=== PATIENT | female | born 1955 | race Caucasian/White ===

== ENCOUNTER 2022-02-09 11:26 | Outpatient (CLI) | payer MEDICARE, SELFPAY ==
--- OUTSIDE RECORDS SUMMARY | 2022-02-09 08:04 | XMS_ITS | Encounter Summary ---
:1955 Author Organization [facility] Address [address] [place] [address] Care Team Providers Name Role Phone Unavailable Primary Care Provider Unavailable Encounter Details Date Type Department Care Team Description 08/18/2021 Hospital Encounter Department of Jean Claude, Carcinom a Renal Cell Right (HCC); Laboratory Medicine Karan Crowe Chronic Kidney Disease (CKD), Stage 3a G lomerular Filtration Rate (GFR) 45 To 59 (HCC); and Pathology, [address] [place] [address] Hyperlipidemia [facility], in [facility] [address] [place] [phone] [place] [address] (Work) [place], [place] [phone] (Fax) [phone] Social History Tobacco Use Types Packs/Day Years Used Date Smoking Tobacco: Never Smokeless Tobacco: Never Comments: passive smoke as a child, teen Alcohol Use Standard Drinks/Week Comments Not Currently 0 (1 standard drink = 0.6 oz pure alcoho l) not since 06/2017 Alcohol Habits Answer Date Recorded How often do you have a drink containing alcohol? Never 08/15/2021 How many drinks containing alcohol do you have on a 1 or 2 03/19/2019 typical day when you are drinking? How often do you have six or more drinks on one Never 03/19/2019 occasion? Comment: not since 06/201702/24/2021 Social Isolation Answer Date Recorded In a typical week, how many times do you More than three satya es a week 08/15/2021 talk on the phone with family, friends, or neighbors? How often do you get together with friends Once a week 08/15/2021 or relatives? How often do you attend buddhist or More than 4 times per year 08/15/2021 zoroastrianism services? Do you belong to any clubs or Yes 08/15/2021 organizations such as buddhist groups, unions, fraternal or athletic groups, or school groups? How often do you attend meetings of the More than 4 times pe r year 08/15/2021 clubs or organizations you belong to? Are you now , , , 08/15/2021 , never or living with a partner? Physical Activity Answer Date Recorded On average, how many days per week do you engage in moderate to 6 days 08/15/2021 strenuous exercise (like walking fast, running, jogging, dancing, swimming, biking, or other activities that cause a light or heavy sweat)? On average, how many minutes do you engage in exercise at th is 60 min 08/15/2021 level? Stress Answer Date Recorded Do you feel stress - tense, restless, nervous, or Only a lit tle 08/15/2021 anxious, or unable to sleep at night because your mind is troubled all the time - these days? Financial Resource Strain Answer Date Recorded How hard is it for you to pay for the very basics like Not h praful at all 08/15/2021 food, housing, medical care, and heating? Intimate Partner Violence Answer Date Recorded Within the last year, have you been afraid of your partner o r No 08/15/2021 ex-partner? Within the last year, have you been humiliated or emotionall y No 08/15/2021 abused in other ways by your partner or ex-partner? Within the last year, have you been kicked, hit, slapped, or No 08/15/2021 otherwise physically hurt by your partner or ex-partner? Within the last year, have you been raped or forced to have any No 08/15/2021 kind of sexual activity by your partner or ex-partner? Food Insecurity Answer Date Recorded Within the past 12 months, you worried that your food would Never true 08/15/2021 run out before you got money to buy more. Within the past 12 months, the food you bought just didn't N ever true 08/15/2021 last and you didn't have money to get more. Transportation Needs Answer Date Recorded In the past 12 months, has lack of transportation kept you f rom No 08/15/2021 medical appointments or from getting medications? In the past 12 months, has lack of transportation kept you f rom No 08/15/2021 meetings, work, or getting things needed for daily living? Housing Stability Answer Date Recorded In the last 12 months, was there a time when you were not ab le No 08/15/2021 to pay the mortgage or rent on time? In the last 12 months, how many places have you lived? 1 08/15/2021 In the last 12 months, was there a time when you did not hav e a No 08/15/[address] sleep or slept in a intermediate (including now)? Education Answer Date Recorded What is the highest level of school Bachelor's degree (e.g., BA, AB, 03/18/2019 you have completed or the highest BS) degree you have received? Sex Assigned at Date Recorded Female 05/10/2018 8:56 AM [employer] documented as of this encounter Medications at Time of Discharge Medication Sig Dispensed Refills Start Date End Date lisinopriL Take 2.5 mg by mouth 0 (PRINIVIL,ZESTRIL) 2.5 mg daily. tablet MULTIVITAMIN ORAL Take by mouth. 2 0 gummies daily plant stanol toi Take 2 capsules by 0 (Cholest Off Plus) 450 mg mouth 2 (two) times a capsule day. psyllium husk, with sugar, Take 3 g by mouth 0 (Metamucil Free) 3 gram/7 daily. gram powder oral powder documented as of this encounter Plan of Treatment Not on filedocumented as of this encounter Procedures Procedure Name Priority Date/Time Associated Diagnosis Comme nts LIPID PANEL, S Routine 08/18/2021 8:01 AM Hyperlipidemia Mixed Results for this CDT procedure are i n the results section. 25-HYDROXYVITAMIN Routine 08/18/2021 8:01 AM Chronic Kidney Di sease Results for this D2 AND D3, S CDT (CKD), Stage 3a procedure ar e in Glomerular Filtration the re sults Rate (GFR) 45 To 59 section. (HCC) CBC WITHOUT Routine 08/18/2021 8:01 AM Carcinoma Renal Cell R esults for this DIFFERENTIAL, B CDT Right (HCC) procedure ar e in the results section. BASIC METABOLIC Routine 08/18/2021 8:01 AM Carcinoma Renal Giulia l Results for this PANEL, S/P CDT Right (HCC) procedure are i n the results section. documented in this encounter Results (ABNORMAL) Lipid Panel (08/18/2021 8:01 AM CDT) athologist Signature Cholesterol, 182 mg/dL 08/18/2021 DTL Total 9:02 AM CDT Comment: ----REFERENCE VALUE---- Desirable: < 200 Borderline high: 200 - 239 High: > or = 240 Triglycerides 146 mg/dL 08/18/2021 9:02 AM CDT DTL Comment: ----REFERENCE VALUE---- Normal: <150 Borderline high: 150-199 High: 200-499 Very high: > or =500 Cholesterol, HDL, S 45 (L) >=50 mg/dL 08/18/2021 9:02 AM CDT DTL Calculated LDL 108 mg/dL 08/18/2021 9:02 AM CDT DT L Comment: ----REFERENCE VALUE---- Desirable: <100 mg/dL Above Desirable: 100-129 mg/dL Borderline High: 130-159 mg/dL High: 160-189 mg/dL Very High: >=190 mg/dL Cholesterol, Non-HDL, Calculated 137 mg/dL 022 9:02 AM CDT DTL Comment: ----REFERENCE VALUE---- Desirable: <130 Above Desirable: 130-159 Borderline high: 160-189 High: 190-219 Very high: > or =220 Specimen Anatomical Collection Method Collection Time Receive d Time (Source) Location / / Volume Laterality Blood (Blood, 08/18/2021 8:01 AM 08/19/19 22 8:43 Venous) CDT AM CDT Kristine Pedraza M.D. LAB BLOOD ADD-ON Performing Organization Address City/State/ZIP Code Phon e Number [facility] - [address] [place], [place] [address] [facility] [place] [address] Laboratories-[facility] [address] 25-Hydroxyvitamin D2 and D3 (08/18/2021 8:01 AM CDT) athologist Signature 25-Hydroxy D2 <4.0 ng/mL 08/19/2021 SDSC 3:46 PM CDT 25-Hydroxy D3 37 ng/mL 08/19/2021 SDSC 3:46 PM CDT 25-Hydroxy D 37 ng/mL 08/19/2021 SDSC Total 3:46 PM CDT Comment: ----REFERENCE VALUE---- 25-HYDROXY D TOTAL (D2+D3) Optimum level s in the healthy population are 20-50, patients with bone disease may benefit from higher levels within this r za. ----ADDITIONAL INFORMATION---- This test was developed and its performa nce characteristics determined by [facility] in a manner consistent with CLIA requirements. This test has not been cleared or approved by the [place] d and Drug Administration. Specimen Anatomical Collection Method Collection Time Receive d Time (Source) Location / / Volume Laterality Blood (Blood, 08/18/2021 8:01 AM 08/19/19 22 Venous) CDT 12:46 PM CDT Selvin Monreal M.D. LAB BLOOD ADD-ON Performing Organization Address City/State/ZIP Code Phon e Number [facility] [address] [place], [place] [address] [place] [address] Laboratory Medicine and Pathology [address] [place] (ABNORMAL) Basic Metabolic Panel (08/18/2021 8:01 AM CDT) Analysis Performed At Patho logist Time Signature Potassium, S 3.8 3.6 - 5.2 08/18/2021 DTL mmol/L 9:02 AM CDT Sodium, S 143 135 - 145 08/18/2021 DTL mmol/L 9:02 AM CDT Chloride, S 104 98 - 107 08/18/2021 DTL mmol/L 9:02 AM CDT Bicarbonate, S 28 22 - 29 08/18/2021 DTL mmol/L 9:02 AM CDT Anion Gap 11 7 - 15 08/18/2021 DTL 9:02 AM CDT BUN (Blood Urea 12 6 - 21 08/18/2021 DTL Nitrogen), S mg/dL 9:02 AM CDT Creatinine 1.13 (H) 0.59 - 08/18/2021 DTL 1.04 mg/dL 9:02 AM CDT eGFR-Non 50 (L) >=60 08/18/2021 DTL Black/ mL/min/BSA 9:02 AM CDT [place] Comment: ----ADDITIONAL INFORMATION---- Estimated GFR calculated using the 2009 CKD_EPI creatinine equation. eGFR-Black/ 58 (L) >=60 mL/min/BSA 2021 9:02 AM CDT DTL Comment: ----ADDITIONAL INFORMATION---- Estimated GFR calculated using the 2009 CKD_EPI creatinine equation. Calcium, Total, S 9.5 8.8 - 10.2 mg/dL 08/18/2021 9:02 AM CDT DTL Glucose, S 69 (L) 70 - 140 mg/dL 08/18/2021 9:02 AM CDT D TL Specimen Anatomical Collection Method Collection Time Receive d Time (Source) Location / / Volume Laterality Blood (Blood, 08/18/2021 8:01 AM 08/19/19 8:43 Venous) CDT AM CDT Edy Silverio M.D. LAB BLOOD ADD-ON Performing Organization Address City/State/ZIP Code Phon e Number [facility] - [address] [place], [place] [address] [facility] [place] [address] [facility] CBC without Differential (08/18/2021 8:01 AM CDT) P athologist Signature Hemoglobin 13.4 11.6 - 08/18/2021 DTL 15.0 g/dL 8:32 AM CDT Hematocrit 41.4 35.5 - 08/18/2021 DTL 44.9 % 8:32 AM CDT Erythrocytes 4.58 3.92 - 08/18/2021 DTL 5.13 8:32 AM CDT x10(12)/L MCV 90.4 78.2 - 08/18/2021 DTL 97.9 fL 8:32 AM CDT RBC Distrib Width 12.7 12.2 - 08/18/2021 DTL 16.1 % 8:32 AM CDT Platelet Count 221 157 - 371 08/18/2021 DTL x10(9)/L 8:32 AM CDT Leukocytes 4.9 3.4 - 9.6 08/18/2021 DTL x10(9)/L 8:32 AM CDT Specimen Anatomical Collection Method Collection Time Receive d Time (Source) Location / / Volume Laterality Blood (Blood, 08/18/2021 8:01 AM 08/19/19 8:25 Venous) CDT AM CDT Edy Silverio M.D. LAB BLOOD ADD-ON Performing Organization Address City/State/ZIP Code Phon e Number [facility] - [address] [place], [place] [address] [facility] [place] [address] [facility] [address] documented in this encounter Visit Diagnoses Diagnosis Carcinoma Renal Cell Right (HCC) Chronic Kidney Disease (CKD), Stage 3a G lomerular Filtration Rate (GFR) 45 To 59 (HCC) Hyperlipidemia Mixed documented in this encounter
--- OUTSIDE RECORDS SUMMARY | 2022-02-09 08:04 | XMS_ITS | Encounter Summary ---
:1955 Author Organization [facility] Address [address] [place] [address] Care Team Providers Name Role Phone Unavailable Primary Care Provider Unavailable Reason for Visit Reason Comments Breast Cancer Screening Encounter Details Date Type Department Care Team Description 09/08/2021 Clinical Section of Preventive, uJany Chandra Cancer Communication Transportation and K, Mukul [facility] in [place], [place] [address] [place] [address] Social History Tobacco Use Types Packs/Day Years [...] or relatives? How often do you attend jainism or More than 4 times per year 08/15/2021 jain services? Do you belong to any clubs or Yes 08/15/2021 organizations such as jainism groups, unions, fraternal or athletic groups, or [...] minutes do you engage in exercise at is 60 min 08/15/2021 level? Stress Answer [...] place to sleep or slept in a retirement (including now)? Education Answer Date Recorded What is the highest level of school Bachelor's degree (e.g., BA, AB, 03/18/2019 you have completed or the highest BS) degree you have received? Sex Assigned at Date Recorded Female 05/10/2018 8:56 AM [employer] documented as of this encounter Plan of Treatment Not on filedocumented as of this encounter Visit Diagnoses Diagnosis Screening Mammogram Breast Cancer - Prim adore documented in this encounter
--- OUTSIDE RECORDS SUMMARY | 2022-02-09 08:04 | XMS_ITS | Encounter Summary ---
:1955 Author Organization [facility] Address [address] [place] [address] Care Team Providers Name Role Phone Unavailable Primary Care Provider Unavailable Reason for Referral Outpatient (Routine) - Closed Specialty Diagnoses / Procedures Referred By Contact Refer red To Contact Diagnoses Lump In The Left Breast Unspecified Quadrant Mali Gonzalez M.D., [facility] Procedures BI Ultrasound Breast Focused Left Ph.D. [address] [place] [address] [phone] Referral ID Status Reason Start Date Expiration Date Visits Requ ested Visits Authorized [id number] Closed 11/03/2021 11/03/2022 1 1 Outpatient (Routine) - Closed Specialty Diagnoses / Procedures Referred By Contact Refer red To Contact Diagnoses Lump In The Left Breast Unspecified Quadrant Mali Gonzalez M.D., [facility] Procedures BI Breast Diagnostic Bilateral with Tomosynthesis Ph.D. [address] [place] [address] [phone] Referral ID Status Reason Start Date Expiration Date Visits Requ ested Visits Authorized [id number] Closed 11/03/2021 11/03/2022 1 1 Reason for Visit Reason Comments Annual Exam Appointment Request (Routine) - Closed Specialty Diagnoses / Procedures Referred By Contact Refer red To Contact Breast Clinic Referral ID Status Reason Start Date Expiration Date Visits Requ ested Visits Authorized [id number] Closed 09/14/2021 09/14/2022 1 Encounter Details Date Type Department Care Team Description 11/03/2021 Comprehensive Visit Breast Diagnostic Mali Gonzalez ump In The Left Breast Unspecified Quadrant (Primary Dx); Clinic in [place], Ph.D. Follow Up Exam; [address] General Medical Examination Adult; [place], [place] Cancer Renal Cell Carcinoma Personal History; [address] [place] [phone] Chronic Kidney Disease (CKD), Stage 3a G lomerular Filtration Rate (GFR) 45 To 59 (HCC) [place], [place] [phone] (Work) [phone] Social History Tobacco Use Types Packs/Day Years [...] or relatives? How often do you attend yarsani or More than 4 times per year 08/15/2021 evangelical services? Do you belong to any clubs or Yes 08/15/2021 organizations such as yarsani groups, unions, fraternal or athletic groups, or [...] place to sleep or slept in a fdc (including now)? Education Answer Date Recorded What is the highest level of school Bachelor's degree (e.g., BA, AB, 03/18/2019 you have completed or the highest BS) degree you have received? 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 - 11/03/2021 8:00 AM CDT REASON FOR CONSULT Medical evaluation HISTORY OF PRESENT ILLNESS Ms. Willis is a very pleasant 66-year-old woman known to me from her evaluation in March of 2019.She is here for annual evaluation and to follow-up on some health related issues. Ms. Willis has a personal history of renal cell carcinoma status post partial nephrectomy in June 2018, melanoma insight 2, indeterminate pulmonary nodules, history of likely multifactorial anemia,and hypertension reasonably well controlled on medication. At the time she presented in late 2018 she was also having some bilateral right greater than left leg swelling and diagnostic evaluation did not identify any acute or subacute issues. The swelling was felt to be chronic and there were no findings suggestive of thromboembolism or liver or thyroid dysfunction. Was thought to be a combination ofvenous insufficiency and lymphedema and after evaluation by my colleague in PM&R she elected cont inued use of thigh-high compression stockings with further efforts towards weight loss and increasedphysical activity. She did not have an interest in seeing the lymphedema therapist at that time. Follow-up after treatment for renal cell carcinoma did not identify any evidence of recurrent or metastatic disease and six-month follow-up with CT of the chest, abdomen, pelvis, urology evaluation, and labs were recommended. At her December 2019 follow-up there were no findings of recurrence and noted pulmonary nodules appeared stable. The plan at that time was nephrology consultation for chronic kidney disease and renal cell carcinoma follow-up in 6 months including imaging and labs. She was seen by maria victoria in Nephrology in February of 2020 and was noted that she had had some loss of kidney function after her right partial nephrectomy. Her slight worsening in December of 2018 was thought likely angel due to hemodynamic affects. They looked into whether her biopsy showed any evidence of renal vascular disease and explained to her that lisinopril would accentuate her creatinine change but she was reassured that if there was any evidence of renal vascular disease that THOMAS inhibitors with the best antihypertensive for her. Judicious use of IV contrast was recommended with IV hydration prior as prophylaxis. She was seen by Genetics in March of 2020 as she had concerns about a potential genetic syndrome. Genetic testing was undertaken and there were no pathogenic variance identified; a single variant of uncertain significance was identified in MSH3 and she was advised that this was not clinically actionable as we do not have sufficient evidence to allow us to understand this variant. She was seen by Endocrinology in February of 2021 in the setting of her hyperlipidemia and abnormal bone density. Her most recent follow-up in Urology was in July of this year and at that time there was no evidence of anything of concern and follow-up in 1 year was recommended. It is noted that she is on a plant based diet and is doing very well. Since I saw her in late 2018, Ms. Willis reports that she was hospitalized for food poisoning earlierthis month. She recovered well but it was noted that her CBC was a bit abnormal and wanted to make sure that this has normalized. She reports that she is overall feeling well and has no specific symptoms or changes of concern. REVIEW OF SYSTEMS A ten point review of systems was performed and negative except as mentioned in the HPI. VITAL SIGNS PHYSICAL EXAM General: Well-nourished, healthy-appearing woman in no apparent distress. HEENT: No scleral icterus or conjunctival injection. Pupillary reflexes are normal and symmetric. Oropharynx is clear without lesions or exudates. Thyroid: No palpable nodules. Nontender. Elevates midline. Peripheral vessels: Normal and symmetric pulses throughout. No bruits. Lymph nodes: No palpable adenopathy throughout. Heart: Regular rate and rhythm. Normal S1 and S2. No murmurs, rubs, or gallops. Lungs: Clear to auscultation bilaterally. Abdomen: She has a vertical keloid scar from her anterior approach nephrectomy. No abdominal bruits.Soft, nontender, nondistended. No organomegaly discrete masses. Extremities: No cyanosis or clubbing. Mild asymmetry between the right and left thigh. She just tookoff her thigh-high compression stockings. Distal extremities are warm and well perfused. Psych: Mood appears congruent with linear thought processes. She was somewhat tearful when talking about her history and her renal cell carcinoma and melanoma in situ. Gait: Normal. Neuro: Cranial nerves 2-12 are grossly intact. Muscle tone and bulk is symmetric and normal. DTRs normal and symmetric throughout. Skin: She has a scar on her left draw from melanoma in situ resection and a pressure bandage in the mid upper back from removal of a skin lesion. Breasts: Moderate and overall symmetric. both nipples remain everted and without discharge or lesions. Skin is unremarkable. Palpation of the right breast reveals no dominant nodules, discrete masses, thickenings, densities, or asymmetries. Palpation of the left breast demonstrated an area of slightly increased asymmetric density or thickening at about 3-330 about 5 cm from the nipple. This area is smooth and approximately 3 cm in overall extent. This was marked for diagnostic imaging purposes. Spine: Nontender to percussion and palpation throughout. Scoliosis noted. ASSESSMENT/PLAN: #1 Palpable asymmetric density, left lateral breast, pending diagnostic imaging evaluation Reviewed this with her. It was not present on my last clinical exam. I have recommended a diagnosticmammogram and targeted diagnostic ultrasound. Will follow-up when results become available to provide further recommendations as appropriate. If the imaging is entirely unremarkable I would recommend 3month follow-up clinical exam, sooner if she notices any changes. #2 Personal history of renal cell carcinoma status post partial nephrectomy cup no evidence of recurrence #3 CKD stage 3A #4 Hyperlipidemia---ASCVD risk was identified as being 12.7%, intermediate risk. Patient chose lifestyle management of hyperlipidemia with a whole food plant based diet and exerciseand feels that she is doing well in this regard. She notes that she feels better on her whole food plant based diet. She reports that she added the medications recommended by my colleague in endocrinology and between those and the plant based diet she has had an improvement in her lipid profile. She is followed by Urology and Nephrology and at her July urology follow-up was found not to have any evidence of recurrence. She is scheduled for nephrology follow-up in January. #5 Declining bone density not yet meeting criteria for osteopenia Reviewed bone health preservation including regular walking for weight-bearing exercise as well as vitamin-D and calcium supplementation if inadequate amounts through dietary sources. #6 CBC abnormality during food borne illness episode I reviewed the labs that she brought with her. Discussed with her that her labs from November 03 demonstrated completely normal CBC with differential and no evidence of abnormal neutrophil, lymphocyte, or monocyte levels. No follow-up is needed at this time. #7 Health maintenance Colonoscopy for colon cancer screening is recommended every 10 years. She is currently up-to-date. Annual influenza vaccine is recommended. Once we have guidelines with regards to COVID vaccine boosters, I would recommend this based upon CDC guidelines. Bone density was measured locally in July of 2020 and I recommend follow-up as per my colleagues in [facility] as well as their recommendations with regards to calcium and vitamin-D supplementation. Recommended a minimum of 150 minutes of exercise weekly such as 30 minutes of walking at least 5 days per week for bone density preservation and cardiovascular health. All of her questions were addressed and she was extremely appreciative. PATIENT EDUCATION: Ready to learn, no apparent learning barriers were identified; learning preferences include listening. Explained diagnosis and treatment plan; patient expressed understanding of the content. Over half of a total 60 minutes was spent in counseling and discussion with the patient and coordination of care as described above. documented in this encounter Plan of Treatment Not on filedocumented as of this encounter Results BI Ultrasound Breast Focused Left (11/04/2021 10:06 AM CDT) Anatomical Region Laterality Modality Breast, Breast Imaging RST LOS, Breast Imaging ARZ LOS, [place] [address] Left Ultrasound Imaging FLA LOS Specimen (Source) Anatomical Collection Method Collection Time Re ceived Time Location / / Volume Laterality 11/04/2021 10:12 AM CDT Impressions 11/04/2021 10:16 AM CDT No mammographic or sonographic findings of malignancy. Underlying left anterior rib accounts for the palpable finding in the left breast 3:00 - 3:30 position 5 cm from the nipple. RECOMMENDATION: ??Annual Screening Mammo gram Findings and results discussed with the patient at the time of imaging. She was encouraged to return to radiology should she notice a clinica l change. All questions answered. ASSESSMENT: ??BI-RADS: 1: Negative. Narrative 11/04/2021 10:16 AM CDT EXAM: ??BI ULTRASOUND BREAST FOCUSED LEFT, BI BREAST DIAGNOSTIC BILATERAL WITH TOMOSYNTHESIS INDICATION: ??Palpable lump. 66-year-old female with recent history of greater than 50 pound weight loss over a two-year period, now with pa lpable lump in the left breast. COMPARISON: ??Prior exam(s) were availab le and reviewed for comparison. DENSITY: ??c. The breast(s) are heteroge neously dense, which may obscure small masses. FINDINGS: ?? Right: Right diagnostic mammogram includ ing full field CC and MLO views with 3-D imaging performed. No mammographic findings of malignancy. Benign secretory calcifications within the right breast. Left: Left diagnostic mammogram includin g full field CC and MLO views with 3-D imaging performed. No mammographic findings of malignancy. No significant interval change from prior study. Targeted left breast ultrasound at the s ite of palpable finding is performed at the 3:00 - 3:30 position 5 cm from the nipple. The under lying left anterior rib accounts for the palpable finding. No suspicious sonographic findings. Both the payroll and benefits assistant and I scanned. Procedure Note Patrick Pandya M.D. - 11/04/2021Formatti ng of this note might be different from the original. EXAM: BI ULTRASOUND BREAST FOCUSED LEFT, BI BREAST DIAGNOSTIC BILATERAL WITH TOMOSYNTHESIS INDICATION: Palpable lump. 66-year-old f emale with recent history of greater than 50 pound weight loss over a two-year period, now with pa lpable lump in the left breast. COMPARISON: Prior exam(s) were available and reviewed for comparison. DENSITY: c. The breast(s) are heterogene ously dense, which may obscure small masses. FINDINGS: Right: Right diagnostic mammogram includ ing full field CC and MLO views with 3-D imaging performed. No mammographic findings of malignancy. Benign secretory calcifications within the right breast. Left: Left diagnostic mammogram includin g full field CC and MLO views with 3-D imaging performed. No mammographic findings of malignancy. No significant interval change from prior study. Targeted left breast ultrasound at the s ite of palpable finding is performed at the 3:00 - 3:30 position 5 cm from the nipple. The under lying left anterior rib accounts for the palpable finding. No suspicious sonographic findings. Both the payroll and benefits assistant and I scanned. IMPRESSION: No mammographic or sonographic findings of malignancy. Underlying left anterior rib accounts for the palpable finding in the left breast 3:00 - 3:30 position 5 cm from the nipple. RECOMMENDATION: Annual Screening Mammogr am Findings and results discussed with the patient at the time of imaging. She was encouraged to return to radiology should she notice a clinica l change. All questions answered. ASSESSMENT: BI-RADS: 1: Negative. Mali Gonzalez M.D., Ph.D. IMG BI PROCEDURES BI Breast Diagnostic Bilateral with Tomosynthesis (11/04/2021 9:32 AM CDT) Anatomical Region Laterality Modality Breast, Breast Imaging RST LOS, Breast Imaging ARZ LOS, [place] [address] Bilateral Mammography Imaging FLA [facility] Specimen (Source) Anatomical Collection Method Collection Time Re ceived Time Location / / Volume Laterality 11/04/2021 10:12 AM CDT Impressions 11/04/2021 10:16 AM CDT No mammographic or sonographic findings of malignancy. Underlying left anterior rib accounts for the palpable finding in the left breast 3:00 - 3:30 position 5 cm from the nipple. RECOMMENDATION: ??Annual Screening Mammo gram Findings and results discussed with the patient at the time of imaging. She was encouraged to return to radiology should she notice a clinica l change. All questions answered. ASSESSMENT: ??BI-RADS: 1: Negative. Narrative 11/04/2021 10:16 AM CDT EXAM: ??BI ULTRASOUND BREAST FOCUSED LEFT, BI BREAST DIAGNOSTIC BILATERAL WITH TOMOSYNTHESIS INDICATION: ??Palpable lump. 66-year-old female with recent history of greater than 50 pound weight loss over a two-year period, now with pa lpable lump in the left breast. COMPARISON: ??Prior exam(s) were availab le and reviewed for comparison. DENSITY: ??c. The breast(s) are heteroge neously dense, which may obscure small masses. FINDINGS: ?? Right: Right diagnostic mammogram includ ing full field CC and MLO views with 3-D imaging performed. No mammographic findings of malignancy. Benign secretory calcifications within the right breast. Left: Left diagnostic mammogram includin g full field CC and MLO views with 3-D imaging performed. No mammographic findings of malignancy. No significant interval change from prior study. Targeted left breast ultrasound at the s ite of palpable finding is performed at the 3:00 - 3:30 position 5 cm from the nipple. The under lying left anterior rib accounts for the palpable finding. No suspicious sonographic findings. Both the payroll and benefits assistant and I scanned. Procedure Note Patrick Pandya M.D. - 11/04/2021Formatti ng of this note might be different from the original. EXAM: BI ULTRASOUND BREAST FOCUSED LEFT, BI BREAST DIAGNOSTIC BILATERAL WITH TOMOSYNTHESIS INDICATION: Palpable lump. 66-year-old f emale with recent history of greater than 50 pound weight loss over a two-year period, now with pa lpable lump in the left breast. COMPARISON: Prior exam(s) were available and reviewed for comparison. DENSITY: c. The breast(s) are heterogene ously dense, which may obscure small masses. FINDINGS: Right: Right diagnostic mammogram includ ing full field CC and MLO views with 3-D imaging performed. No mammographic findings of malignancy. Benign secretory calcifications within the right breast. Left: Left diagnostic mammogram includin g full field CC and MLO views with 3-D imaging performed. No mammographic findings of malignancy. No significant interval change from prior study. Targeted left breast ultrasound at the s ite of palpable finding is performed at the 3:00 - 3:30 position 5 cm from the nipple. The under lying left anterior rib accounts for the palpable finding. No suspicious sonographic findings. Both the payroll and benefits assistant and I scanned. IMPRESSION: No mammographic or sonographic findings of malignancy. Underlying left anterior rib accounts for the palpable finding in the left breast 3:00 - 3:30 position 5 cm from the nipple. RECOMMENDATION: Annual Screening Mammogr am Findings and results discussed with the patient at the time of imaging. She was encouraged to return to radiology should she notice a clinica l change. All questions answered. ASSESSMENT: BI-RADS: 1: Negative. Mali Gonzalez M.D., Ph.D. IMG BI PROCEDURES documented in this encounter Visit Diagnoses Diagnosis Lump In The Left Breast Unspecified Quad rant - Primary Follow Up Exam General Medical Examination Adult Cancer Renal Cell Carcinoma Personal His tory Chronic Kidney Disease (CKD), Stage 3a G lomerular Filtration Rate (GFR) 45 To 59 (HCC) Lump In The Left Breast Unspecified Quad rant Lump In The Left Breast Unspecified Quad rant documented in this encounter
--- OUTSIDE RECORDS SUMMARY | 2022-02-09 08:04 | XMS_ITS | Encounter Summary ---
:1955 Author Organization [facility] Address [address] [place] [address] Care Team Providers Name Role Phone Unavailable Primary Care Provider Unavailable Encounter Details Date Type Department Care Team Description 11/07/2021 Documentation Breast Diagnostic Clinic Mali Gonzalez, in [facility] [place] sarah Kc, Ph.D. [address] [facility] [address] [place] [address] [place], [place] [phone] (Wo rk) Social History Tobacco Use Types Packs/Day Years [...] or relatives? How often do you attend jew or More than 4 times per year 08/15/2021 latter-day services? Do you belong to any clubs or Yes 08/15/2021 organizations such as jew groups, unions, fraternal or athletic groups, or [...] place to sleep or slept in a half-way (including now)? Education Answer Date Recorded What is the highest level of school Bachelor's degree (e.g., BA, AB, 03/18/2019 you have completed or the highest BS) degree you have received? 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 - 11/07/2021 2:37 PM CDT #1 Palpable asymmetric density, left lateral breast, pending diagnostic imaging evaluation Studies: Diagnostic mammogram and ultrasound Findings recommendations: It was noted that she has had a significant weight loss over the last 2 years which has been intended. This certainly can contribute to changes in architecture of the breast tissue. She has dense breast tissue. The right breast was mammographically unremarkable. In the left breast there were no significant findings of concern. Ultrasound evaluation in the area in question demonstrates an underlying left anterior rib with overlying normal appearing breast tissue accounting for the palpable finding. This is concordant with my exam and no further evaluation is needed. Recommend annual clinical breast exam and annual screening mammogram with 3D views, next due October 2022. ?? #2 Personal history of renal cell carcinoma status post partial nephrectomy with no evidence of recurrence #3 CKD stage 3A #4 Hyperlipidemia Recommendations: Continued follow-up with Urology and Nephrology, nephrology follow-up currently scheduled for January. Avoid NSAIDs such as ibuprofen. Continue with whole food plant based diet and regular physical activity and other recommendations from my colleagues. ?? #5 Declining bone density not yet meeting criteria for osteopenia Recommendations: Calcium and vitamin-D supplementation as recommended by [facility] and regular physical activity including weight-bearing exercises for bone density preservation. Reviewed bone health preservation including regular walking for weight-bearing exercise as well as vitamin-D supplementation with 1000 [address] daily and calcium intake of 800-1000 mg daily in divided doses, consider calcium citrate supplementation if necessary. Follow-up bone density 2 years from most recent at the facility where was done previously for better comparison purposes is recommended. #6 Health maintenance Recommendations: Colonoscopy for colon cancer screening is recommended every 10 years. She is currently up-to-date. Annual screening mammogram, next due October 2022. Annual influenza vaccine is recommended. Once we have guidelines with regards to COVID vaccine boosters, I would recommend [facility]. Follow-up bone density 2 years from most recent at the facility where it was performed. Calcium and vitamin-D intake as noted above. Recommended a minimum of 150 minutes of exercise weekly such as 30 minutes of walking at least 5 days per week for bone density preservation and cardiovascular health. documented in this encounter Plan of Treatment Not on filedocumented as of this encounter Visit Diagnoses Not on filedocumented in this encounter
--- OUTSIDE RECORDS SUMMARY | 2022-02-09 08:04 | XMS_ITS | Encounter Summary ---
:1955 Author Organization [facility] Address [address] [place] [address] Care Team Providers Name Role Phone Unavailable Primary Care Provider Unavailable Encounter Details Date Type Department Care Team Description 01/17/2022 Hospital Encounter Department of Tramaine Hope Chroni c Kidney Laboratory Medicine MJenniferDJennifer Disease (CKD), Stage and Pathology, [address] [place] [address] 3a [facility], in [place], [place] Filtrat ion Rate (GFR) [place], [place] [phone] 45 To 59 (HCC) [address] [place] [address] [place], [place] (Work) [phone] Social History Tobacco Use Types Packs/Day Years [...] or relatives? How often do you attend druze or More than 4 times per year 08/15/2021 gnosticism services? Do you belong to any clubs or Yes 08/15/2021 organizations such as druze groups, unions, fraternal or athletic groups, or school groups? How often do you attend meetings of the More than 4 times r year 08/15/2021 clubs or organizations you [...] place to sleep or slept in a correction (including now)? Education Answer Date Recorded What is the highest level of school Bachelor's degree (e.g., BA, AB, 03/18/2019 you have completed or the highest BS) degree you have received? 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 MICROSCOPIC AUTOMATED Routine 01/17/2022 10:44 Re sults for this AM CDT procedure are i n the results section. PH, U Routine 01/17/2022 10:44 Results for this AM CDT procedure are i n the results section. OSMOLALITY, U Routine 01/17/2022 10:44 Results fo r this AM CDT procedure are i n the results section. URINALYSIS WITH Routine 01/17/2022 10:44 Chronic Kidney Result s for this MICROSCOPIC AM CDT Disease (CKD), procedure are in Stage 3a Glomerular the resu lts Filtration Rate section. (GFR) 45 To 59 (HCC) documented in this encounter Results Dipstick, Urine (01/17/2022 10:44 AM CDT) [facility] gist Method Time Signature Hemoglobin, Negative Negative 01/17/2022 DTL QL, U 12:11 PM CDT Leukocyte Negative Negative 01/17/2022 DTL Esterase, U 12:11 PM CDT Nitrite, U Negative Negative 01/17/2022 DTL 12:11 PM CDT Ketone, U Negative Negative 01/17/2022 DTL mg/dL 12:11 PM CDT Glucose, U Negative Negative 01/17/2022 DTL mg/dL 12:11 PM CDT Specimen Anatomical Collection Method Collection Time Receive d Time (Source) Location / / Volume Laterality Urine 01/17/2022 10:44 01/17/2022 AM CDT 11:32 AM CDT Tramaine Hope M.D. LAB URINE ORDERABLES Performing Organization Address City/[facility]/[place]IP [facility] [place] [facility] - [address] [place] [address] First [facility] Osmolality, Urine (01/17/2022 10:44 AM CDT) athologist Signature Osmolality, U 322 150 - 1150 01/17/2022 DTL mOsm/kg 12:36 PM CDT Specimen Anatomical Collection Method Collection Time Receive d Time (Source) Location / / Volume Laterality Urine 01/17/2022 10:44 01/17/2022 AM CDT 11:32 AM CDT Tramaine Hope M.D. LAB URINE ORDERABLES Performing Organization Address City/State/ZIP [facility] [place] Number [facility] - [address] pH, Urine (01/17/2022 10:44 AM CDT) P athologist Signature pH, U 7.7 4.5 - 8.0 01/17/2022 12:36 DTL PM CDT Specimen Anatomical Collection Method Collection Time Receive d Time (Source) Location / / Volume Laterality Urine 01/17/2022 10:44 01/17/2022 AM CDT 11:32 AM CDT Tramaine Hope M.D. LAB URINE ORDERABLES Performing Organization Address City/[facility] Code Phon e Number [facility] - 200 [place], [place] [address] [place] [address] Microscopic Automated (01/17/2022 10:44 AM CDT) P athologist Signature Microscopy Normal 01/17/2022 DTL 12:11 PM CDT Specimen Anatomical Collection Method Collection Time Receive d Time (Source) Location / / Volume Laterality Urine 01/17/2022 10:44 01/17/2022 AM CDT 11:32 AM CDT Tramaine Hope M.D. LAB URINE ORDERABLES Performing Organization Address City/[facility] Phon e Number [facility] - [address] Urinalysis with Microscopic: Urine, Midstream (01/17/2022 10:44 AM CDT) Patholo gist Method Time Signature Source Urine, Urine, 01/17/2022 DTL Midstream 11:32 AM CDT Color, U Yellow 01/17/2022 DTL 11:32 AM CDT Clarity, U Clear 01/17/2022 DTL 11:32 AM CDT Protein, U 7 <26 mg/dL 01/17/2022 DTL 12:18 PM CDT Protein/Osmol 0.22 <0.42 01/17/2022 DTL ality ratio 12:36 PM CDT Predicted 24 167 mg/24 h 01/17/2022 DTL Hr Protein 12:36 PM CDT Predicted 41-678 mg/24 h 01/17/2022 DTL Range 12:36 PM CDT Specimen Anatomical Collection Method Collection Time Receive d Time (Source) Location / / Volume Laterality Urine (Urine, 01/17/2022 10:44 01/17/2022 Midstream) AM CDT 11:32 AM CDT Tramaine Hope M.D. LAB URINE ORDERABLES Performing Organization Address City/State/ZIP Code Phon e Number [facility] - [address] [place], [place] [address] [facility] [place] [address] Laboratories-[facility] [address] documented in this encounter Visit Diagnoses Diagnosis Chronic Kidney Disease (CKD), Stage 3a G lomerular Filtration Rate (GFR) 45 To 59 (HCC) documented in this encounter
--- OUTSIDE RECORDS SUMMARY | 2022-02-09 08:04 | XMS_ITS | Encounter Summary ---
:1955 Author Organization [facility] Address [address] [place] [address] Care Team Providers Name Role Phone Unavailable Primary Care Provider Unavailable Encounter Details Date Type Department Care Team Description 08/18/2021 Orders Only Department of Urology Alicia Ross rlipidemia Mixed in [place], E, R.N. (Primary Dx) [place] [address] [address] [facility] [address] [place] [phone] Social History Tobacco Use Types Packs/Day Years [...] or relatives? How often do you attend jain or More than 4 times per year 08/15/2021 samaritan services? Do you belong to any clubs or Yes 08/15/2021 organizations such as jain groups, unions, fraternal or athletic groups, or [...] place to sleep or slept in a penitentiary (including now)? Education Answer Date Recorded What is the highest level of school Bachelor's degree (e.g., BA, AB, 03/18/2019 you have completed or the highest BS) degree you have received? 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 LAB BLOOD ADD-ON Performing Organization Address City/State/ZIP Code Phon e Number [facility] - [address] [place], [place] [address] [facility] [place] [address] Laboratories-[facility] [address] documented in this encounter Visit Diagnoses Diagnosis Hyperlipidemia Mixed - Primary documented in this encounter
--- OUTSIDE RECORDS SUMMARY | 2022-02-09 08:04 | XMS_ITS | Encounter Summary ---
:1955 Author Organization [facility] Address [address] [place] [address] Care Team Providers Name Role Phone Unavailable Primary Care Provider Unavailable Reason for Visit Reason Comments Pre-visit Testing Orders Encounter Details Date Type Department Care Team Description 10/12/2021 Clinical Communication Division of Jayy, Pre-v isit Testing Nephrology and De Redd Orders Hypertension in [address] [place] [address] [address] [facility] [phone] Social History Tobacco Use Types Packs/Day Years [...] or relatives? How often do you attend muslim or More than 4 times per year 08/15/2021 taoist services? 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 Please order. Telephone Encounter - Carmencita Martinez - 10/12/2021 7:[address] Hope patient scheduled 01/19, please order tests. Thank you. documented in this encounter Plan of Treatment Not on filedocumented as of this encounter Visit Diagnoses Not on filedocumented in this encounter
--- OUTSIDE RECORDS SUMMARY | 2022-02-09 08:04 | XMS_ITS | Encounter Summary ---
:1955 Author Organization [facility] Address [address] [place] [address] Care Team Providers Name Role Phone Unavailable Primary Care Provider Unavailable Reason for Visit Reason Comments Appointment Encounter Details Date Type Department Care Team Description 09/12/2021 Clinical Communication Division of Nephrology Cleopatra Hope, Appointment and Hypertension in .. [place], [place] [address] [facility] [address] [place] [phone] [phone] Social History Tobacco Use Types Packs/Day Years [...] or relatives? How often do you attend hinduism or More than 4 times per year 08/15/2021 orthodox services? 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 - 09/20/2021 8:56 AM CDT Yes, absolutely. Thanks. Telephone Encounter - Carmencita Martinez - 09/14/2021 2:21 PM CDT Please advise of previous message Telephone Encounter - Sammi Urbina - 09/12/2021 10:23 AM CDT Carmenicta Patient called to schedule with Dr. Hope or possibly Dr. Lea. There are no appointments available with Dr. Hope through November. Can Dr. Lea see patient? She has openings in October. Please check and call patient back. Thank you, Enedina documented in this encounter Plan of Treatment Not on filedocumented as of this encounter Visit Diagnoses Not on filedocumented in this encounter
--- OUTSIDE RECORDS SUMMARY | 2022-02-09 08:04 | XMS_ITS | Encounter Summary ---
:1955 Author Organization [facility] Address [address] [place] [address] Care Team Providers Name Role Phone Unavailable Primary Care Provider Unavailable Reason for Visit Reason Comments Annual Exam Encounter Details Date Type Department Care Team Description 09/14/2021 Clinical Communication Breast Diagnostic Alma Gonzalez, Annual Exam Clinic in [place], [place], Ph.D. [place] [address] [address] [facility] [address] [place] [phone] Social History Tobacco Use Types Packs/Day Years [...] or relatives? How often do you attend anabaptism or More than 4 times per year 08/15/2021 druze services? Do you belong to any clubs or Yes 08/15/2021 organizations such as anabaptism groups, unions, fraternal or athletic groups, or [...] place to sleep or slept in a snf (including now)? Education Answer Date Recorded What is the highest level of school Bachelor's degree (e.g., BA, AB, 03/18/2019 you have completed or the highest BS) degree you have received? 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 I've pended the order. Thank you, Wanda documented in this encounter Plan of Treatment Not on filedocumented as of this encounter Visit Diagnoses Diagnosis Screening Mammogram Average Risk Patient - Primary documented in this encounter
--- OUTSIDE RECORDS SUMMARY | 2022-02-09 08:04 | XMS_ITS | Encounter Summary ---
:1955 Author Organization [facility] Address [address] [place] [address] Care Team Providers Name Role Phone Unavailable Primary Care Provider Unavailable Reason for Visit Reason Comments Nephropathy Appointment Request (Routine) - Closed Specialty Diagnoses / Procedures Referred By Contact Refer red To Contact Nephrology and Tramaine Hope M.D. Hypertension [address] [place] [address] Referral ID Status Reason Start Date Expiration Date Visits Requ ested Visits Authorized [id number] Closed 09/08/2021 09/08/2022 1 1 Encounter Details Date Type Department Care Team Description 01/19/2022 Office Visit Division of Nephrology Tramaine Hope Chr onic Kidney Disease (CKD), Stage 3a Glomerular Filtration Rate (GFR) 45 To 59 (HCC) (Primary Dx); and Hypertension in M.D. Hypertension And Chronic Kidney Disease Stage 1 To 4 [place], [place] [address] [facility] [address] [place] [phone] [phone] Social History Tobacco Use Types Packs/Day Years [...] or relatives? How often do you attend islam or More than 4 times per year 08/15/2021 sabianist services? Do you belong to any clubs or Yes 08/15/2021 organizations such as islam groups, unions, fraGiveGab or athletic groups, or school groups? How [...] place to sleep or slept in a senior care (including now)? Education Answer Date Recorded What is the highest level of school Bachelor's degree (e.g., BA, AB, 03/18/2019 you have completed or the highest BS) degree you have received? 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 - 01/19/2022 10:45 AM CDT Referring Provider: Tramaine Hope M.D. SUBJECTIVE HISTORY OF PRESENT ILLNESS Ms. Willis is a 66 y.o. female who presents rising creatinine. 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 Creatinine preop was between 0.87 - 1.02 and increased to 1.33 in 01/07/20. UA's have been normal except for one UTI on 06/03/19. Keflex was presecribed. Patient was having pain on the left side of her face in 10/07 where she had a melanoma excised. Dental X-rays were negative. She was unable to seek medical attention because of Covid. She did not take any medication but it resolved on its own. A CT taken 01/07/20 for tumor surveillance showed no tumor recurrence but nonspecific enteritis. Patient developed diarrhea the following day. She has a history of hypertension since mid 1999. She was initially started on HCTZ but developeda rash. She has been on lisinopril since 2006 on the same dose. Blood pressures ran between the mid 120s to 130s. In 01/08/20, lisinopril was reduced to 2.5 mg daily for hypotension 97/62. The following week, she had a blood pressure of 90. She was told to go to an urgent care but could not find one. She finally went to an ED and her blood pressure was in the 180s. Creatinine was 1.2. Blood pressuressince have mostly been in the 110s. Diarrhea resolved after 1 week. Patient had a rash to PPI so she takes cimetidine instead. She denies kidney stone, NSAIDs or high nut intake. Patient has been on a renal diet and has lost 10 to 12 lb over last 6 months. 02/09: Patient is started plant based diet. Initially are total cholesterol dropped from 214 to 182 but now is back to 211. She states that she has been eating out more recently due to family gatherings. In addition she has been having fluctuation in her blood pressure. At one point and time her blood pressure was low after starting plant based diet and she stop the lisinopril. Then her blood pressure shot up. She will have blood pressure as high as 180 systolic. Current Outpatient Medications: lisinopriL (PRINIVIL,ZESTRIL) 2.5 mg tablet, Take 2.5 mg by mouth daily., Disp: , Rfl: MULTIVITAMIN ORAL, Take by mouth. 2 gummies daily, Disp: , Rfl: plant stanol toi (Cholest Off Plus) 450 mg capsule, Take 2 capsules by mouth 2 (two) times a day., Disp: , Rfl: psyllium husk, with sugar, (Metamucil Free) 3 gram/7 gram powder oral powder, Take 3 g by mouth daily., Disp: , Rfl: Current Facility-Administered Medications: nipwdfphukd-kfswkdsoj-BVSQBBFwqmz 0.25%-1%-1:200,000 injection 2-50 mL, 2-50 mL, infiltration, PRN,Abelardo Heart M.D., 8 mL at 10/10/18 1520 lidocaine-EPINEPHrine 1%-1:200,000 injection 2-50 mL (XYLOCAINE W/EPI), 2-50 mL, infiltration, PRN,Abelardo Heart M.D., 16 mL at 10/10/18 1520 The following portions of the patient's history were reviewed and updated as appropriate: allergies,current medications, family history, medical history, social history, surgical history and problem list. REVIEW OF SYSTEMS Constitutional: Positive for fatigue. Eyes: Positive for visual problems. Cardiovascular: Positive for rapid or fluttering heart beat. Gastrointestinal: Positive for diarrhea. Musculoskeletal: - Negative for pain or stiffness in the joints. The following systems were negative: Skin, ENT, Respiratory, Genitourinary, Hematologic, Musculoskeletal, Neurological, Psychiatric OBJECTIVE Temp (!) 35.9 ??C Wt 58.2 kg BMI 22.86 kg/m?? PHYSICAL EXAMINATION Constitutional Appearance: Normal appearance. HENT Head: Normocephalic. Mouth/Throat: Mouth: Mucous membranes are moist. Eyes Pupils: Pupils are equal, round, and reactive to light. Cardiovascular Rate and Rhythm: Normal rate and regular rhythm. Pulmonary Effort: Pulmonary effort is normal. Breath sounds: Normal breath sounds. Abdominal General: Abdomen is flat. Tenderness: no abdominal tenderness Musculoskeletal Right lower leg: No edema. Left lower leg: No edema. Lymphadenopathy Cervical: No cervical adenopathy. Skin General: Skin is warm. Neurological Mental Status: She is alert and oriented to person, place, and time. Deep Tendon Reflexes: Reflexes abnormal (Absent at the ankles). Psychiatric Mood and Affect: Mood normal. Behavior: Behavior normal. DIAGNOSTICS ASSESSMENT / PLAN #1 Chronic Kidney Disease (CKD), Stage 3 Unspecified (HCC) Kidney function is stable. There is no proteinuria. #2 Hypertension I think the patient does have underlying hypertension. She was unable to get off lisinopril. I thinkthe blood pressure swings may be due to low drug levels during day since she takes it at bedtime. Would increase lisinopril to 2.5 mg b.i.d. I have also encouraged her to look into a DASH diet or the Mediterranean diet which have been found to be very beneficial for hypertensive patients with kidney disease. I would increase her potassium intake as potassium intake has been found to be inversely associated with blood pressure. She should have potassium checked 1 week after increasing lisinopril and 2 weeks after increasing her potassium in the diet. If her potassium does increase, low-dose hydrochlorothiazide can be added. #3 Chromophobe renal cell carcinoma #4 Hypercholesterolemia Patient will see our dietitian. Tramaine Hope M.D. documented in this encounter Plan of Treatment Not on filedocumented as of this encounter Visit Diagnoses Diagnosis Chronic Kidney Disease (CKD), Stage 3a G lomerular Filtration Rate (GFR) 45 To 59 (HCC) - Primary Hypertension And Chronic Kidney Disease Stage 1 To 4 documented in this encounter
--- OUTSIDE RECORDS SUMMARY | 2022-02-09 08:04 | XMS_ITS | Clinical Summary ---
:1955 Author Organization [facility] Address [address] [place] [address] Care Team Providers Name Role Phone Unavailable Primary Care Provider Unavailable Source Comments Patient records contain information from all sites at [facility]. For routine questions regarding patient records, call [phone] during business hours, M-F 8:00 AM - 5:00 PM Central Time. Record requests for emergency care only can be directed to [phone] at any time.[facility] Allergies Active Allergy Reactions Severity Noted Date Comments Covid-19 Other (see 11/03/2021 Mouth tingling Vacc,Mrna(Pfizer)(Pf) comments) Hydrochlorothiazide Angioedema 12/21/2009 Not patricia rly related but possible. Pantoprazole Anaphylaxis, Other High 08/11/2006 swelling to (see comments) uvula, and ra sh in groin Rabeprazole Rash 11/10/2016 Groin area Medications Medication Sig Dispensed Refills Start Date End Date Status lisinopriL Take 2.5 mg by 0 Acti ve (PRINIVIL,ZESTRIL) 2.5 mouth daily. mg tablet MULTIVITAMIN ORAL Take by mouth. 2 0 Active gummies daily plant stanol toi Take 2 capsules by 0 Active (Cholest Off Plus) 450 mouth 2 (two) mg capsule times a day. psyllium husk, with Take 3 g by mouth 0 Active sugar, (Metamucil daily. Free) 3 gram/7 gram powder oral powder Hospital, Clinic, or Other Ordered Dose Route Frequency Start Date End Date Status Facility Administered Medication lidocaine-EPINEPHrine 2 - 50 mL Ifil As needed 10/10/2018 Active 1%-1:200,000 injection 2-50 mL (XYLOCAINE W/EPI) sxauclxowsi-dckpeznow-LFHBSTD 2 - 50 mL Ifil As needed 10/10/2018 Active rine 0.25%-1%-1:200,000 injection 2-50 mL Active Problems Problem Noted Date Melanoma Of Skin Cancer Personal History 03/23/2020 Cancer Skin Family History 03/23/2020 Family History Genetic Disorder 03/23/2020 Cancer Renal Cell Carcinoma Personal History 0 Cancer Breast Family History 03/23/2020 Mass Kidney 07/02/2018 Encounters Date Type Specialty Care Team Description 01/19/2022 Office Visit Nephrology and Jayy, Chronic Kidne y Disease (CKD), Stage 3a Glomerular Filtration Rate (GFR) 45 To 59 (HCC) (Primary Dx); Hypertension Tramaine, Hypertension An d Chronic Kidney Disease Stage 1 To 4 M.D. 01/17/2022 [facility] Laboratory Medicine [facility], Chronic Kidney Disease Encounter Tramaine, (CKD), Stage 3a Glomerular M.D. Filtration Rate (GFR) 45 To 59 (HCC) 01/17/2022 [facility] Laboratory Medicine [facility], Chronic Kidney Disease (CKD), Stage 3a Glomerular Filtration Rate (GFR) 45 To 59 (HCC); Encounter Tramaine, Hypertensive Ch ronic Kidney Disease (CKD) Stage 3a Glomerular Filtration Rate (GFR) 45 To 59 (HCC); M.D. Hypocholesterol emia 01/04/2022 Orders Only Nephrology and [facility], Hypertensive Chronic Kidney Disease (CKD) Stage 3a Glomerular Filtration Rate (GFR) 45 To 59 (HCC) (Primary Dx); Hypertension Tramaine, Hypocholesterol emia M.D. from Last 3 Months Immunizations Name Administration Dates Next Due HZV (ZOSTAVAX) 01/31/2017 HepA Adult 01/14/1998, 06/15/1997 HepB Adult 06/26/1995, 02/05/1995, 01/05/1995, 12/19/1994 IPV 12/21/2011 Influenza (IM) Preservative Free 04/09/2015, 03/16/2011 Influenza TIV (IM) 02/25/2020, 03/08/2012, 03/16/2011, 03/24/2010 Influenza high dose QV(65 years or 02/18/2021 older) (PF) Influenza, Quadrivalent, Adjuvanted, 02/25/2020 Preservative Free Influenza, Seasonal, Injectable 03/08/2012, 03/24/2010 Influenza, Unspecified 04/09/2015, 03/08/2012, 03/16/2011, 03/24/2010 PCV13 01/14/2019 PPSV23 01/22/2020 RZV (SHINGRIX) 04/21/2019, 04/08/2019 (Deferred: Other - will get it with primary doctor), 01/14/2019 SARS-COV-2 (COVID-19) - KEN (J&J) 03/16/2021, 01/06/2021 Td Preservative Free (TENIVAC, 10/21/2011, 08/31/2004 DECAVAC) Tdap 11/10/2011 Ty21a (oral) 12/25/2011 YF 12/21/2011 influenza high dose (65 years or 02/13/2019 older) (PF) influenza vaccine quad 03/18/2018, 01/31/2017, 01/26/2014 (FLUZONE/FLUARIX) (6 months and older)(PF) Family History Medical History Relation Name Comments Asthma Brother Rodney Coronary artery disease Father Mika Hyperlipidemia Father Mika Unexplained Father Mika Dementia Maternal Grandfather R. Kamcke Arthritis Maternal Grandmother A. Sandrae Arthritis Mother Mahesh Forrester Breast cancer Mother MJennifer Forrester Colon polyps Mother MJennifer Forrester Hypertension Mother MJennifer Forrester Diabetes Mother's Sister G.Zoe Obesity Mother's Sister GLaisha Coronary artery disease Paternal Grandfather C. Adams Hypertension Paternal Grandmother R.Adams Stroke Paternal Grandmother RMarikas Colon polyps Sister GJennifer Sibley Skin cancer Sister Victoria Sibley Basal-face Relation Name Status Comments Brother Miroslavas Father R.Ricoeks Maternal Grandfather R. Wernecke Maternal Grandmother A. Wernecke Mother M. Ricoeks Mother's Sister G.Zoe Paternal Grandfather C. Goeks Paternal Grandmother R.Goeks Sister Victoria Sibley Social History Tobacco Use Types Packs/Day Years [...] or relatives? How often do you attend sabianist or More than 4 times per year 08/15/2021 sikh services? 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 Inhaled Oxygen Concentration - - Weight 58.2 kg (128 lb 3.2 oz) 01/19/2022 10:21 AM CDT Height 159.5 cm (5' 2.8) 11/03/2021 7:38 AM CDT Body Mass Index 22.86 11/03/2021 7:38 AM CDT Plan of Treatment Health Maintenance Due Date Last Done Comments CT Colonography 1955 Cologuard 1955 Hepatitis C Screening 1955 Depression Screening 05/21/2021 (Annual PHQ-2) DTaP,Tdap,and Td Vaccines 11/09/2021 11/10/2011, 10/21/2011 , (2 - Td or Tdap) 08/31/2004 COVID-19 Vaccine (4 - 01/17/2022 11/22/2021, 03/16/2021, Booster for Ken 01/06/2021, Additional series) history exists Influenza Vaccine (#1) 2022 02/18/2021, 02/25/2020, 02/25/2020, Additional history exists Mammogram 11/04/2022 11/04/2021, 09/07/2020, 09/01/2020, Additional history exists Creatinine Level 01/17/2023 01/17/2022, 08/18/2021, 01/06/2021, Additional history exists Potassium Level 01/17/2023 01/17/2022, 08/18/2021, 01/06/2021, Additional history exists Sodium Level 01/17/2023 01/17/2022, 08/18/2021, 01/06/2021, Additional history exists Colonoscopy 08/23/2023 08/22/2018 (Performed elsewhere) Colorectal Cancer 08/23/2023 Surveillance Fasting Glucose for 01/17/2025 01/17/2022, 08/18/2021, Diabetes Screening 01/06/2021, Additional history exists Zoster Vaccines Completed 04/21/2019, 01/14/2019, 01/31/2017 Bone Density Scan Addressed 08/18/2019 (Performed Overridd en with the (Osteoporosis Screen) elsewhere) intention of not completing the t opic Pneumococcal vaccine (65+ Completed 01/22/2020, 01/14/2019 years) Fall Risk Screen (Annual) Completed 08/18/2021 Medical Devices Implanted Type Area Environmental Geologist Device Identifier Shelf Model / Expiration Serial / Date Lot Clp Hrzn Ti 6 Tin Goyal Clem - [id number] - [id number] Hardware [employer] [id number] 02/05/2023 [id number] / Implanted: Qty: 1 on 07/02/2018 by Edy Whitehead M.D. at [facility] e.g. 0000 / pins/screws/ [id number] rods Procedures Procedure Name Priority Date/Time Associated Diagnosis Comme nts DIPSTICK, U Routine 01/17/2022 10:44 Results for [...] for this MICROSCOPIC AM CDT Disease (CKD), Stage procedu re are in 3a Glomerular the results Filtration Rate section. (GFR) 45 To 59 (HCC) LIPID PANEL, S Routine 01/17/2022 10:25 Hypertensive Chronic R esults for this AM CDT Kidney Disease (CKD) procedu re are in Stage 3a Glomerular the resu lts Filtration Rate section. (GFR) 45 To 59 ( HCC) Hypocholesterolemia PHOSPHORUS Routine 01/17/2022 10:25 Hypertensive Chronic Res ults for this (INORGANIC), S AM CDT Kidney Disease (CKD) proce dure are in Stage 3a Glomerular the resu lts Filtration Rate section. (GFR) 45 To 59 ( HCC) Hypocholesterolemia CBC WITH DIFFERENTIAL, Routine 01/17/2022 10:25 Chronic Kidney Results for this B AM CDT Disease (CKD), Stage procedu re are in 3a Glomerular the results Filtration Rate section. (GFR) 45 To 59 (HCC) COMPREHENSIVE Routine 01/17/2022 10:25 Chronic Kidney Results for this METABOLIC PANEL, S/P AM CDT Disease (CKD), Stage procedure are in 3a Glomerular the results Filtration Rate section. (GFR) 45 To 59 (HCC) from Last 3 Months Results Dipstick, Urine (01/17/2022 10:44 AM CDT) Patholo gist Method Time Signature Hemoglobin, Negative Negative [...] M.D. LAB URINE ORDERABLES Performing Organization Address City/[facility] Phon e Number [facility] [address] Microscopic Automated (01/17/2022 10:44 AM CDT) athologist Signature Microscopy Normal 01/17/2022 DTL 12:11 PM CDT Specimen Anatomical Collection Method Collection Time Receive d Time (Source) Location / / Volume Laterality Urine 01/17/2022 10:44 01/17/2022 AM CDT 11:32 AM CDT Tramaine Hope M.D. LAB URINE ORDERABLES Performing Organization Address City/[facility] Phon e Number [facility] [address] pH, Urine (01/17/2022 10:44 AM CDT) P athologist Signature pH, U 7.7 4.5 - 8.0 01/17/2022 12:36 DTL PM CDT Specimen Anatomical Collection Method Collection Time Receive d Time (Source) Location / / Volume Laterality Urine 01/17/2022 10:44 01/17/2022 AM CDT 11:32 AM CDT Tramaine Hope M.D. LAB URINE ORDERABLES Performing Organization Address City/[facility]/ZIP Code Phon e Number [facility] - [address] Osmolality, Urine (01/17/2022 10:44 AM CDT) P athologist Signature Osmolality, U 322 150 - 1150 01/17/2022 DTL mOsm/kg 12:36 PM CDT Specimen Anatomical Collection Method Collection Time Receive d Time (Source) Location / / Volume Laterality Urine 01/17/2022 10:44 01/17/2022 AM CDT 11:32 AM CDT Tramaine Hope M.D. LAB URINE ORDERABLES Performing Organization Address [facility] Phon e Number [facility] - [id number] [place] [address] Urinalysis with Microscopic: Urine, Midstream (01/17/2022 10:44 [...] M.D. LAB URINE ORDERABLES Performing Organization Address City/[facility]/ZIP Code Phon e Number [facility] - [address] [place] [address] Laboratories-[facility] [address] [facility] (ABNORMAL) Lipid Panel (01/17/2022 10:25 AM CDT) P athologist Signature Triglycerides 150 (H) mg/dL 01/17/2022 DTL 11:24 AM CDT Comment: ----REFERENCE VALUE---- Normal: <150 mg/dL Borderline High: 150-199 mg/dL High: 200-499 mg/dL Very High: > or =500 mg/dL Cholesterol, Total 211 (H) mg/dL 01/17/2022 11:24 AM C DT DTL Comment: ----REFERENCE VALUE---- Desirable: < 200 mg/dL Borderline High: 200 - 239 mg/dL High: > or = 240 mg/dL Cholesterol, LDL, Calculated 134 (H) mg/dL 01/17/2022 11:24 AM CDT DTL Comment: ----REFERENCE VALUE---- Desirable: <100 mg/dL Above Desirable: 100-129 mg/dL Borderline High: 130-159 mg/dL High: 160-189 mg/dL Very High: >=190 mg/dL ----ADDITIONAL INFORMATION---- LDL cholesterol calculated using the Bejarano/NIH equation. Cholesterol, HDL, S 50 >=50 mg/dL 01/17/2022 11:24 AM CDT DTL Cholesterol, Non-HDL, Calculated 161 (H) mg/dL 11:24 AM CDT DTL Comment: ----REFERENCE VALUE---- Desirable: <130 mg/dL Above Desirable: 130-159 mg/dL Borderline High: 160-189 mg/dL High: 190-219 mg/dL Very High: > or =220 mg/dL Fasting (8 HR or more) 199901/17/2022 11:05 AM CDT DTL Specimen Anatomical Collection Method Collection Time Receive d Time (Source) Location / / Volume Laterality Blood (Blood, 01/17/2022 10:25 01/17/2022 Venous) AM CDT 11:05 AM CDT Tramaine Hope M.D. LAB BLOOD ADD-ON Performing Organization Address City/State/ZIP Code Phon e Number [facility] - [address] [place] [address] [facility] [place] [address] Laboratories-[facility] 200 [facility] CBC with Differential, Blood (01/17/2022 10:25 AM CDT) P athologist Signature Hemoglobin 13.8 11.6 - 01/17/2022 DTL 15.0 g/dL 11:00 AM CDT Hematocrit 43.0 35.5 - 01/17/2022 DTL 44.9 % 11:00 AM CDT Erythrocytes 4.71 3.92 - 01/17/2022 DTL 5.13 11:00 AM CDT x10(12)/L MCV 91.3 78.2 - 01/17/2022 DTL 97.9 fL 11:00 AM CDT RBC Distrib Width 13.1 12.2 - 01/17/2022 DTL 16.1 % 11:00 AM CDT Platelet Count 173 157 - 371 01/17/2022 DTL x10(9)/L 11:00 AM CDT Leukocytes 4.0 3.4 - 9.6 01/17/2022 DTL x10(9)/L 11:00 AM CDT Neutrophils 2.16 1.56 - 01/17/2022 DTL 6.45 11:00 AM CDT x10(9)/L Lymphocytes 1.31 0.95 - 01/17/2022 DTL 3.07 11:00 AM CDT x10(9)/L Monocytes 0.33 0.26 - 01/17/2022 DTL 0.81 11:00 AM CDT x10(9)/L Eosinophils 0.14 0.03 - 01/17/2022 DTL 0.48 11:00 AM CDT x10(9)/L Basophils 0.03 0.01 - 01/17/2022 DTL 0.08 11:00 AM CDT x10(9)/L Specimen Anatomical Collection Method Collection Time Receive d Time (Source) Location / / Volume Laterality Blood (Blood, 01/17/2022 10:25 01/17/2022 Venous) AM CDT 10:48 AM CDT Tramaine Hope M.D. LAB BLOOD ADD-ON Performing Organization Address City/State/ZIP Code Phon e Number [facility] - 200 [place], [place] [address] [facility] [place] [address] Laboratories-[address] Phosphorus Inorganic (01/17/2022 10:25 AM CDT) P athologist Signature Phosphorus 3.9 2.5 - 4.5 01/17/2022 DTL (Inorganic), S mg/dL 11:24 AM CDT Specimen Anatomical Collection Method Collection Time Receive d Time (Source) Location / / Volume Laterality Blood (Blood, 01/17/2022 10:25 01/17/2022 Venous) AM CDT 11:05 AM CDT Tramaine Hope M.D. LAB BLOOD ADD-ON Performing Organization Address City/State/ZIP Code Phon e Number [facility] - [address] [place] [address] [place] [address] [place] [address] Laboratories[address] (ABNORMAL) Comprehensive Metabolic Panel (01/17/2022 10:25 AM CDT) Analysis Performed At Patho logist Time Signature Potassium, S 4.6 3.6 - 5.2 01/17/2022 DTL mmol/L 11:24 AM CDT Sodium, S 141 135 - 145 01/17/2022 DTL mmol/L 11:24 AM CDT Chloride, S 103 98 - 107 01/17/2022 DTL mmol/L 11:24 AM CDT Bicarbonate, S 28 22 - 29 01/17/2022 DTL mmol/L 11:24 AM CDT Anion Gap 10 7 - 15 01/17/2022 DTL 11:24 AM CDT BUN (Blood Urea 12 6 - 21 01/17/2022 DTL Nitrogen), S mg/dL 11:24 AM CDT Creatinine 1.12 (H) 0.59 - 01/17/2022 DTL 1.04 mg/dL 11:24 AM CDT Estimated GFR 54 (L) >=60 01/17/2022 DTL (eGFR) mL/min/BSA 11:24 AM CDT Comment: Estimated GFR calculated using the 2020 CKD_EPI creatinine equation. Calcium, Total, S 9.6 8.8 - 10.2 mg/dL 01/17/2022 11:2 4 AM CDT DTL Glucose, S 88 70 - 140 mg/dL 01/17/2022 11:24 AM CDT DTL Protein, Total, S 6.7 6.3 - 7.9 g/dL 01/17/2022 11:24 AM CDT DTL Albumin, S 4.9 3.5 - 5.0 g/dL 01/17/2022 11:24 AM CDT DTL Aspartate Aminotransferase 24 8 - 43 U/L 01/17/2022 1 1:24 AM CDT DTL (AST), S Alkaline Phosphatase, S 105 (H) 35 - 104 U/L 01/17/2022 11 :24 AM CDT DTL Alanine Aminotransferase 29 7 - 45 U/L 01/17/2022 11: 24 AM CDT DTL (ALT), S Bilirubin, Total, S 0.4 <=1.2 mg/dL 01/17/2022 11:24 A M CDT DTL Specimen Anatomical Collection Method Collection Time Receive d Time (Source) Location / / Volume Laterality Blood (Blood, 01/17/2022 10:25 01/17/2022 Venous) AM CDT 11:05 AM CDT Tramaine Hope M.D. LAB BLOOD ADD-ON Performing Organization Address City/State/ZIP Code Phon e Number [facility] - [address] [place], [place] [address] [facility] [place] [address] Laboratories-[facility] [address] from Last 3 Months Insurance Payer Benefit Plan / Subscriber ID Effective Dates Phone Addre ss Type Group UCARE UCARE FOR [id number] 2019-Present [phone] [address] [place] [address] Advance Directives For more information, please contact: [phone] Latest Code Status on File Code Status Date Activated Date Inactivated Comments Full Code 07/02/2018 8:58 PM 07/07/2018 4:51 PM Full Code: Discussed Full Code 07/02/2018 8:32 AM 07/02/2018 8:58 PM Full Code: Discussed
--- OUTSIDE RECORDS SUMMARY | 2022-02-09 08:04 | XMS_ITS | Encounter Summary ---
:1955 Author Organization [facility] Address [address] [place] [address] Care Team Providers Name Role Phone Unavailable Primary Care Provider Unavailable Encounter Details Date Type Department Care Team Description 01/17/2022 Hospital Department of [place], Chronic Kidney Disease (CKD), Stage 3a Glomerular Filtration Rate (GFR) 45 To 59 (HCC); Encounter Laboratory [place] Hypertensive Chronic Kidney Disease (CKD ) Stage 3a Glomerular Filtration Rate (GFR) 45 To 59 (HCC); Medicine and [address] [place], [place] [address] Pathology, Formerly [facility], in [facility] [phone] [place] [address] [place], [place] (Work) [phone] Social History Tobacco Use Types Packs/Day Years [...] or relatives? How often do you attend scientology or More than 4 times per year 08/15/2021 hindu services? Do you belong to any clubs or Yes 08/15/2021 organizations such as scientology groups, unions, fraternal or athletic groups, or [...] to sleep or slept in a senior living (including now)? Education Answer Date Recorded What is the highest level of school Bachelor's degree (e.g., BA, AB, 03/18/2019 you have completed or the highest BS) degree you have received? 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 (GFR) 45 To 59 (HCC) PHOSPHORUS Routine 01/17/2022 10:25 Hypertensive Chronic Res ults for this (INORGANIC), S AM CDT Kidney Disease (CKD) proce javy are in Stage 3a Glomerular the resu lts Filtration Rate section. (GFR) 45 To 59 ( HCC) Hypocholesterolemia COMPREHENSIVE Routine 01/17/2022 10:25 Chronic Kidney Results for this METABOLIC PANEL, S/P AM CDT Disease (CKD), Stage procedure are in 3a Glomerular the results Filtration Rate section. (GFR) 45 To 59 (HCC) documented in this encounter Results (ABNORMAL) Lipid Panel (01/17/2022 10:25 AM CDT) [...] M.D. LAB BLOOD ADD-ON Performing Organization Address City/[facility] Phon e Number [facility] - 200 [place], [place] [address] [facility] [place] [address] Laboratories-[address] Phosphorus Inorganic (01/17/2022 10:25 AM CDT) athologist Signature Phosphorus 3.9 2.5 - 4.5 01/17/2022 DTL (Inorganic), S mg/dL 11:24 AM CDT Specimen Anatomical Collection Method Collection Time Receive d Time (Source) Location / / Volume Laterality Blood (Blood, 01/17/2022 10:25 01/17/2022 Venous) AM CDT 11:05 AM CDT Tramaine Hope M.D. LAB BLOOD ADD-ON Performing Organization Address City/[facility] Phon e Number [facility] - 200 [place], [place] [address] [place] [address] Formerly [facility]-[address] CBC with Differential, Blood (01/17/2022 10:25 AM CDT) athologist Signature Hemoglobin 13.8 11.6 - 01/17/2022 [...] Organization Address City/State/ZIP Code Phon e Number [facility] - [address] [place] [address] [facility] [place] [address] Laboratories-[facility] 200 [facility] (ABNORMAL) Comprehensive Metabolic Panel (01/17/2022 10:25 AM [...] Organization Address City/State/ZIP Code Phon e Number [facility] - [address] [place], [place] [address] [facility] [place] [address] Laboratories-[facility] [address] documented in this encounter Visit Diagnoses Diagnosis Chronic Kidney Disease (CKD), Stage 3a G lomerular Filtration Rate (GFR) 45 To 59 (HCC) Hypertensive Chronic Kidney Disease (CKD ) Stage 3a Glomerular Filtration Rate (GFR) 45 To 59 (HCC) Hypocholesterolemia documented in this encounter
--- OUTSIDE RECORDS SUMMARY | 2022-02-09 08:04 | XMS_ITS | Encounter Summary ---
:1955 Author Organization [facility] Address [address] [place] [address] Care Team Providers Name Role Phone Unavailable Primary Care Provider Unavailable Encounter Details Date Type Department Care Team Description 10/20/2021 Orders Only Division of Hematology Tramaine Hope Chr onic Kidney Disease in [facility] (CKD), Stage 3a [address] Glomerular Filtration [place], [place] Rate (GFR) 45 To 59 [id number] (HCC) (Primary Dx) [phone] Social History Tobacco Use Types Packs/Day Years [...] or relatives? How often do you attend roman catholic or More than 4 times per year 08/15/2021 rastafari services? Do you belong to any clubs or Yes 08/15/2021 organizations such as roman catholic groups, unions, fraternal or athletic groups, or [...] place to sleep or slept in a residential (including now)? Education Answer Date Recorded What is the highest level of school Bachelor's degree (e.g., BA, AB, 03/18/2019 you have completed or the highest BS) degree you have received? 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 Plan of Treatment Not on filedocumented as of this encounter Results Urinalysis with Microscopic: Urine, Midstream (01/17/2022 10:44 AM CDT) [facility] gist Method Time Signature Source Urine, Urine, [...] City/State/ZIP Code Phon e Number [facility] - [address] [place], [place] [address] [facility] [place] [address] Laboratories-[facility] 200 [facility] CBC with Differential, Blood (01/17/2022 10:25 AM [...] City/State/ZIP Code Phon e Number [facility] - 200 [place], [place] [address] [facility] [place] [address] Laboratories-[facility] 200 [facility] (ABNORMAL) Comprehensive Metabolic Panel (01/17/2022 10:25 AM CDT) Analysis Performed At Patho [facility] Time Signature Potassium, S 4.6 3.6 - [...] City/State/ZIP Code Phon e Number [facility] - [address] [place], [place] [address] [facility] [place] [address] Laboratories-[facility] [address] documented in this encounter Visit Diagnoses Diagnosis Chronic Kidney Disease (CKD), Stage 3a G lomerular Filtration Rate (GFR) 45 To 59 (HCC) - Primary documented in this encounter
--- OUTSIDE RECORDS SUMMARY | 2022-02-09 08:04 | XMS_ITS | Encounter Summary ---
:1955 Author Organization [facility] Address [address] [place] [address] Care Team Providers Name Role Phone Unavailable Primary Care Provider Unavailable Encounter Details Date Type Department Care Team Description 01/04/2022 Orders Only Division of Hope, Hypertensive Ch ronic Kidney Disease (CKD) Stage 3a Glomerular Filtration Rate (GFR) 45 To 59 (HCC) (Primary Dx); Nephrology and De Redd Hypocholesterolemia Hypertension in [address] [place], [place] [address] [facility] [phone] [place], [place] [phone] (Work) [phone] Social History Tobacco Use Types Packs/Day Years [...] or relatives? How often do you attend mu-ism or More than 4 times per year 08/15/2021 druze services? Do you belong to any clubs or Yes 08/15/2021 organizations such as mu-ism groups, unions, fraternal or athletic groups, or [...] place to sleep or slept in a nursing home (including now)? Education Answer Date Recorded What is the highest level of school Bachelor's degree (e.g., BA, AB, 03/18/2019 you have completed or the highest BS) degree you have received? 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 LAB BLOOD ADD-ON Performing Organization Address City/[facility] Phon e Number [facility] - [address] Phosphorus Inorganic (01/17/2022 10:25 AM CDT) P athologist Signature Phosphorus 3.9 2.5 - 4.5 01/17/2022 DTL (Inorganic), S mg/dL 11:24 AM CDT Specimen Anatomical Collection Method Collection Time Receive d Time (Source) Location / / Volume Laterality Blood (Blood, 01/17/2022 10:25 01/17/2022 Venous) AM CDT 11:05 AM CDT Tramaine Hope M.D. LAB BLOOD ADD-ON Performing Organization Address City/[facility] Phon e Number [facility] - 200 [place], [place] [address] [place] [address] documented in this encounter Visit Diagnoses Diagnosis Hypertensive Chronic Kidney Disease (CKD ) Stage 3a Glomerular Filtration Rate (GFR) 45 To 59 (HCC) - Primary Hypocholesterolemia documented in this encounter
--- OUTSIDE RECORDS SUMMARY | 2022-02-09 08:04 | XMS_ITS | Encounter Summary ---
:1955 Author Organization [facility] Address [address] [place] [address] Care Team Providers Name Role Phone Unavailable Primary Care Provider Unavailable Reason for Referral Outpatient (Routine) - Closed Specialty Diagnoses / Procedures Referred By Contact Refer red To Contact Diagnoses Lump In The Left Breast Unspecified Quadrant Mali Gonzalez M.D., [facility] Procedures BI Breast Diagnostic Bilateral with Tomosynthesis Ph.D. [address] [place] [phone] Referral ID Status Reason Start Date Expiration Date Visits Requ ested Visits Authorized [id number] Closed 11/03/2021 11/03/2022 1 1 Reason for Visit Outpatient (Routine) - Closed Specialty Diagnoses / Procedures Referred By Contact Refer red To Contact Diagnoses Lump In The Left Breast Unspecified Quadrant Mali Gonzalez M.D., [facility] Procedures BI Breast Diagnostic Bilateral with Tomosynthesis Ph.D. [address] [place] [phone] Referral ID Status Reason Start Date Expiration Date Visits Requ ested Visits Authorized [id number] Closed 11/03/2021 11/03/2022 1 1 Encounter Details Date Type Department Care Team Description 11/04/2021 Hospital Encounter Department of Mali Gonzalez I n The Left Radiology in [place], Ph.D. Breast Unspecified [place], [place] [address] [facility] Quadrant [address] [place] [phone] Social History Tobacco Use Types Packs/Day Years [...] or relatives? How often do you attend worship or More than 4 times per year 08/15/2021 orthodoxy services? 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 documented in this encounter Results BI Breast Diagnostic Bilateral with Tomosynthesis (11/04/2021 9:32 AM CDT) Anatomical Region Laterality Modality Breast, Breast Imaging RST LOS, Breast Imaging ARZ LOS, [address] Bilateral Mammography Imaging FLA [facility] Specimen (Source) Anatomical Collection Method [...] finding. No suspicious sonographic findings. Both the supervisor labor gang and I scanned. Procedure Note Patrick Pandya [...] finding. No suspicious sonographic findings. Both the supervisor labor gang and I scanned. IMPRESSION: No mammographic or [...]
--- OUTSIDE RECORDS SUMMARY | 2022-02-09 08:04 | XMS_ITS | Encounter Summary ---
:1955 Author Organization [facility] Address [address] [place] [address] Care Team Providers Name Role Phone Unavailable Primary Care Provider Unavailable Reason for Referral Outpatient (Routine) - Closed Specialty Diagnoses / Procedures Referred By Contact Refer red To Contact Diagnoses Lump In The Left Breast Unspecified Quadrant Mali Gonzalez M.D., [facility] Procedures BI Ultrasound Breast Focused Left Ph.D. [address] [place] [phone] Referral ID Status Reason Start Date Expiration Date Visits Requ ested Visits Authorized [id number] Closed 11/03/2021 11/03/2022 1 1 Reason for Visit Outpatient (Routine) - Closed Specialty Diagnoses / Procedures Referred By Contact Refer red To Contact Diagnoses Lump In The Left Breast Unspecified Quadrant Mali Gonzalez M.D., [facility] Procedures BI Ultrasound Breast Focused Left Ph.D. [address] [place] [phone] Referral ID Status Reason Start Date Expiration Date Visits Requ ested Visits Authorized [id number] Closed 11/03/2021 11/03/2022 1 1 Encounter Details Date Type Department Care Team Description 11/04/2021 Hospital Encounter Department of Mali Gonzalez I n The Left Radiology in [place], Ph.D. Breast Unspecified [place], [place] [address] [facility] Quadrant [address] [place] [phone] Social History Tobacco Use Types Packs/Day Years [...] or relatives? How often do you attend taoism or More than 4 times per year 08/15/2021 nondenominational services? Do you belong to any clubs or Yes 08/15/2021 organizations such as taoism groups, unions, fraternal or athletic groups, or [...] place to sleep or slept in a care home (including now)? Education Answer Date Recorded What is the highest level of school Bachelor's degree (e.g., BA, AB, 03/18/2019 you have completed or the highest BS) degree you have received? 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 documented in this encounter Results BI Ultrasound Breast Focused Left (11/04/2021 10:06 AM CDT) Anatomical Region Laterality Modality Breast, Breast Imaging RST LOS, Breast Imaging ARZ LOS, [place] [address] Left Ultrasound Imaging FLA LOS Specimen [...] finding. No suspicious sonographic findings. Both the estate planning attorney and I scanned. Procedure Note aPtrick Pandya M.D. - 11/04/2021Formatti ng of this [...] finding. No suspicious sonographic findings. Both the estate planning attorney and I scanned. IMPRESSION: No mammographic or [...]
--- OUTSIDE RECORDS SUMMARY | 2022-02-09 08:04 | XMS_ITS | Encounter Summary ---
:1955 Author Organization [facility] Address [address] [place] [address] Care Team Providers Name Role Phone Unavailable Primary Care Provider Unavailable Reason for Referral Outpatient (Routine) - Authorized Specialty Diagnoses / Procedures Referred By Contact Refer red To Contact Urology Edy Silverio M.D. [facility] [address] [place] [phone] Referral ID Status Reason Start Date Expiration Date Visits V isits Requested Authorized [id number] Authorized 08/18/2021 08/18/2022 1 1 Scheduling Instructions See if she is willing to see Geraldine Moraes son for f/u. If not, then Jean Claude MRI/CAT/PET Scan (Routine) - Authorized Specialty Diagnoses / Procedures Referred By Contact Refer red To Contact Radiology Diagnoses Carcinoma Renal Cell Right (HCC) Edy Silverio M.D. [place] [facility] Procedures CT Abdomen Pelvis without and with IV Contrast [address] [place], [place] [phone] Referral ID Status Reason Start Date Expiration Date Visits V isits Requested Authorized [id number] Authorized 08/18/2021 08/18/2022 1 1 MRI/CAT/PET Scan (Routine) - Authorized Specialty Diagnoses / Procedures Referred By Contact Refer red To Contact Radiology Diagnoses Carcinoma Renal Cell Right (HCC) Edy Silverio M.D. [place] [facility] Procedures CT Chest without IV Contrast 200 [place] [phone] Referral ID Status Reason Start Date Expiration Date Visits V isits Requested Authorized [id number] Authorized 08/18/2021 08/18/2022 1 1 Encounter Details Date Type Department Care Team Description 08/18/2021 Orders Only Department of Urology Alicia Ross C arcinoma Renal Cell in [place], R.N. Right (HCC) (Primary [place] 200 [facility] Dx) 200 [place] [phone] Social History Tobacco Use Types Packs/Day Years [...] or relatives? How often do you attend anabaptist or More than 4 times per year 08/15/2021 adventism services? 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 Plan of Treatment Scheduled Orders Name Type Priority Associated Order Schedule Diagnoses Basic Metabolic Panel Lab Routine Carcinoma Renal Exp ected: Cell Right (HCC) 08/18/2022 (Approximate), Expires: 08/18/2022 CBC without Lab Routine Carcinoma Renal Expected: Differential Cell Right (HCC) 08/18/2022 (Approximate), Expires: 11/17/2022 CT Chest without IV Imaging RAD - Routine (most Carcinoma Lizzie l Expected: Contrast inpatients and all Cell Right (HCC) 08/18 outpatients) (Approximate), Expires: 11/17/2022 CT Abdomen Pelvis Imaging RAD - Routine (most Carcinoma Renal Expected: without and with IV inpatients and all Cell Right (HCC ) 08/18/2022 Contrast outpatients) (Approximate), Expires: 11/17/2022 Scheduled Referrals Name Type Priority Associated Diagnoses [facility] Outpatient Referral Routine Expect ed: visit (clinic) 08/18/2022 (Approximate), Expires: 11/17/2022 documented as of this encounter Visit Diagnoses Diagnosis Carcinoma Renal Cell Right (HCC) - Prima ry documented in this encounter
--- OUTSIDE RECORDS SUMMARY | 2022-02-09 08:04 | XMS_ITS | Encounter Summary ---
:1955 Author Organization [facility] Address [address] [place] [address] Care Team Providers Name Role Phone Unavailable Primary Care Provider Unavailable Reason for Referral MRI/CAT/PET Scan (Routine) - Closed Specialty Diagnoses / Procedures Referred By Contact Refer red To Contact Radiology Diagnoses Carcinoma Renal Cell Right (HCC) Edy Silverio M.D. [facility] Procedures CT Abdomen Pelvis with IV Contrast CT Abdomen Pelvis without and with IV Contrast [address] [place] [address] Referral ID Status Reason Start Date Expiration Date Visits Requ ested Visits Authorized [id number] Closed 06/30/2020 08/18/2021 1 1 MRI/CAT/PET Scan (Routine) - Closed Specialty Diagnoses / Procedures Referred By Contact Refer red To Contact Radiology Diagnoses Carcinoma Renal Cell Right (HCC) Nodules Pulmonary Multiple Edy Silverio M.D. [facility] Procedures CT Chest with IV Contrast CT Chest without IV Contrast [address] [place] [address] Referral ID Status Reason Start Date Expiration Date Visits Requ ested Visits Authorized [id number] Closed 05/23/2021 05/23/2022 1 1 Reason for Visit MRI/CAT/PET Scan (Routine) - Closed Specialty Diagnoses / Procedures Referred By Contact Refer red To Contact Radiology Diagnoses Carcinoma Renal Cell Right (HCC) Nodules Pulmonary Multiple Edy Silverio M.D. [place] [facility] Procedures CT Chest with IV Contrast CT Chest without IV Contrast [address] [place] [phone] Referral ID Status Reason Start Date Expiration Date Visits Requ ested Visits Authorized [id number] Closed 05/23/2021 05/23/2022 1 1 Encounter Details Date Type Department Care Team Description 08/18/2021 Hospital Encounter Department of Jean Claude Carcinom a Renal Cell Right (HCC); Radiology, Symone Wagoner M.D. Nodules Pulmonary Multiple Building, in [address] [place] [phone] [place] [address] [place], [place] (Work) [phone] Social History Tobacco Use Types Packs/Day Years [...] More than 4 times per year 08/15/2021 sikhism services? Do you belong to any clubs [...] place to sleep or slept in a detention (including now)? Education Answer Date Recorded What is the highest level of school Bachelor's degree (e.g., BA, AB, 03/18/2019 you have completed or the highest BS) degree you have received? 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 CT CHEST WITH IV RAD - Routine 08/18/2021 10:05 Carcinoma Renal Res ults for this CONTRAST (most inpatients AM CDT Cell Right (HCC ) procedure are in and all Nodules Pulmonary the result s outpatients) Multiple section. documented in this encounter Results CT Abdomen Pelvis with IV Contrast (08/18/2021 10:05 AM CDT) Anatomical Region Laterality Modality Abdomen, Pelvis, Abdominal RST LOS, N/A Comp uted Tomography, Computed Abdominal ARZ LOS, Abdominal FLA LOS Iron ography Specimen (Source) Anatomical Collection Method Collection Time Re ceived Time Location / / Volume Laterality 08/18/2021 9:53 AM CDT Impressions 08/18/2021 11:48 AM CDT No evidence of recurrent or metastatic d isease in the abdomen or pelvis. Narrative 08/18/2021 11:48 AM CDT EXAM: ??CT ABDOMEN PELVIS WITH IV CONTRAST COMPARISON: ??06/30/2020. FINDINGS: ?? Stable postoperative changes of partial right nephrectomy. No evidence of recurrent tumor. The left kidney is normal. No change in several small cysts in the liver. Spleen, pancreas, and adrenals are normal. No lymphadenopathy, mass, or ascites in the abdomen or pelvis. Hysterectomy. This examination was performed in [facility] with a CT of the chest, which will be reported separately. Procedure Note Robbi Romano M.D. - 08/18/2021Formatt ing of this note might be different from the original. EXAM: CT ABDOMEN PELVIS WITH IV CONTRAST COMPARISON: 06/30/2020. FINDINGS: Stable postoperative changes of partial right nephrectomy. No evidence of recurrent tumor. The left kidney is normal. No change in several small cysts in the liver. Spleen, pancreas, and adrenals are normal. No lymphadenopathy, mass, or ascites in the abdomen or pelvis. Hysterectomy. This examination was performed in [facility] with a CT of the chest, which will be reported separately. IMPRESSION: No evidence of recurrent or metastatic d isease in the abdomen or pelvis. Edy Silverio M.D. IMG CT PROCEDURES CT Chest with IV Contrast (08/18/2021 10:05 AM CDT) Anatomical Region Laterality Modality Chest, Thoracic RST LOS, Thoracic ARZ N/A Co mputed Tomography, Computed LOS, Thoracic ARZ LOS, Thoracic FLA Kevin graphy LOS Specimen (Source) Anatomical Collection Method Collection Time Re ceived Time Location / / Volume Laterality 08/18/2021 9:59 AM CDT Impressions 08/18/2021 10:46 AM CDT Stable chest CT. Narrative 08/18/2021 10:46 AM CDT EXAM: CT CHEST WITH IV CONTRAST COMPARISON: 06/30/2020, 01/07/2020 FINDINGS: Stable 4 mm soft tissue nodule or intrap ulmonary lymph node in the anterior right upper lobe (series 3/image 230). No new or enlarging pulmon adore nodules. No lymphadenopathy. Mild septal thickening and groundglass o pacities consistent with mild scarring in the medial right lower lobe (3/372). Slight hypertrophic changes and curve to the thoracic spine. This examination was performed in conjun ction with a CT of the abdomen, which will be reported separately. Procedure Note Navneet Landers M.D. - 08/18/2021Fo rmatting of this note might be different from the original. EXAM: CT CHEST WITH IV CONTRAST COMPARISON: 06/30/2020, 01/07/2020 FINDINGS: Stable 4 mm soft tissue nodule or intrap ulmonary lymph node in the anterior right upper lobe (series 3/image 230). No new or enlarging pulmon adore nodules. No lymphadenopathy. Mild septal thickening and groundglass o pacities consistent with mild scarring in the medial right lower lobe (3/372). Slight hypertrophic changes and curve to the thoracic spine. This examination was performed in conjun ction with a CT of the abdomen, which will be reported separately. IMPRESSION: Stable chest CT. Edy Silverio M.D. IMG CT PROCEDURES documented in this encounter Visit Diagnoses Diagnosis Carcinoma Renal Cell Right (HCC) Nodules Pulmonary Multiple documented in this encounter Administered Medications Inactive Administered Medications - up to 3 most recent administrations Medication Order MAR Action Action Date Dose Rate Site iohexoL 300 mg iodine/mL solution Given 08/18/2021 9:51 AM CDT 1 00 mL 1-200 mL (OMNIPAQUE) 1-200 mL, intravenous, Once in imaging, contrast, Starting on Aline 08/18/21 at 0930, For 1 dose, Imaging Protocol Orders, Dose per Radiant Medication Guidelines sodium chloride (PF) 0.9 % injection 1-1 00 mL Given 08/18/2021 9:51 AM CDT 50 mL 1-100 mL, intravenous, Once, On Aline 08/18/21 at 0945, For 1 dose, Imaging Protocol Orders documented in this encounter
--- OUTSIDE RECORDS SUMMARY | 2022-02-09 08:05 | XMS_ITS | Encounter Summary ---
:1955 Author Organization [facility] Address [address] [place] [address] Care Team Providers Name Role Phone Unavailable Primary Care Provider Unavailable Reason for Visit Reason Comments Pt Request Encounter Details Date Type Department Care Team Description 10/21/2020 Clinical Communication Breast Diagnostic Alma Gonzalez, [place]. [place] [address] [address] [facility] [address] [place] [phone] Social History Tobacco Use Types Packs/Day Years Used Date Smoking Tobacco: Never Smokeless Tobacco: Never Comments: passive smoke as a child, teen Alcohol Use Standard Drinks/Week Comments Yes 2 (1 standard drink = 0.6 oz pure alcoho l) Alcohol Habits Answer Date Recorded How often do you have a drink containing alcohol? Never 08/15/2021 How many drinks containing alcohol do you have on a typical or 2 03/19/2019 day when you are drinking? How often do you have six or more drinks on one occasion? Ne bianca 03/19/2019 Comment: Not asked Social Isolation Answer Date Recorded In a typical week, how many times do you More than three satya es a week 08/15/2021 talk on the phone with family, friends, or neighbors? How often do you get together with friends Once a week 08/15/2021 or relatives? How often do you attend samaritan or More than 4 times per year 08/15/2021 shinto services? Do you belong to any clubs or Yes 08/15/2021 organizations such as samaritan groups, unions, fraternal or athletic groups, or [...] place to sleep or slept in a jail (including now)? Education Answer Date Recorded What is the highest level of school Bachelor's degree (e.g., BA, AB, 03/18/2019 you have completed or the highest BS) degree you have received? 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 Thank you RY BAKER Telephone Encounter - Matias Thomas - 10/22/2020 10:53 AM CDT Jp Gonzalez. This was your note from the [facility] visit back in 2019: All of her questions were addressed as were those of her and they are both very appreciative. Discussed that I would plan to take her in to my General Internal Medicine Practice and I gave her my contact information. Will plan to see her back in approximately 1 year either early fall or late summer. Will follow up when her current evaluation are completed. She was very happy with this plan ofcare and very appreciative. I am ok with telling pt to go back to [facility] as I know the [facility] practice is changing but just wanted to confirm with you. Thank you! Telephone Encounter - Larisa Da Silva RPSGT - 10/21/2020 8:33 AM CDT Jp Gonzalez, Pt calling this am stating she has a pink card to call us for an apt in the early Fall. States had breast testing done closer to home. Pt is under the impression she is to follow up with you for a ME. You seen in Con Med. I verified with Sil that this patient is not on your list of GME. Please advise. PASS call pt with response documented in this encounter Plan of Treatment Not on filedocumented as of this encounter Visit Diagnoses Not on filedocumented in this encounter
--- OUTSIDE RECORDS SUMMARY | 2022-02-09 08:05 | XMS_ITS | Encounter Summary ---
:1955 Author Organization [facility] Address [address] [place] [address] Care Team Providers Name Role Phone Unavailable Primary Care Provider Unavailable Reason for Referral Outpatient (Routine) - Closed Specialty Diagnoses / Procedures Referred By Contact Refer red To Contact Endocrinology Diagnoses Chronic Kidney Disease (CKD), Stage 3a Glomerular Filtration Rate (GFR) 45 To 59 (HCC) Amilcar Lea [place] M.D. [address] [place] [phone] Referral ID Status Reason Start Date Expiration Date Visits Requ ested Visits Authorized [id number] Closed 01/06/2021 01/06/2022 1 1 Reason for Visit Reason Comments Kidney Mass Appointment Request (Routine) - Closed Specialty Diagnoses / Procedures Referred By Contact Refer red To Contact Nephrology and Diagnoses Mass Kidney Tramaine Hope M.D. Hypertension [address] [place] [phone] Referral ID Status Reason Start Date Expiration Date Visits Requ ested Visits Authorized [id number] Closed 10/25/2020 10/25/2021 1 1 Encounter Details Date Type Department Care Team Description 01/06/2021 Office Visit Division of Jayy, Chronic Kidney Disease (CKD), Stage 3a Glomerular Filtration Rate (GFR) 45 To 59 (HCC) (Primary Dx); Nephrology and [place] Hypertensive Chronic Kidney Disease (CKD ) Stage 3a Glomerular Filtration Rate (GFR) 45 To 59 (HCC); Hypertension in [address] [place] [address] Hypocholesterolemia [place], [place] [address] [facility] [id number] [place], [place] [phone] (Work) [phone] Social History Tobacco Use Types Packs/Day Years [...] alcohol do you have on a typical 1 or 2 03/19/2019 day when you are [...] More than 4 times per year 08/15/2021 christianity services? 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 - 01/06/2021 10:15 AM CDT REASON FOR CONSULT Follow up CKD HISTORY OF PRESENT ILLNESS Ms. Willis is a 65 y.o. Lady who presents to the office for follow up. 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 Creatinine preop was between 0.87 - 1.02 and increased to 1.33 in 01/07/20. UA's have been normal except for one UTI on 06/03/19. Keflex was presecribed. Patient was having pain on the left side of her face in 10/07where she had a melanoma excised. Dental X-rays [...] She was initially started on HCTZ but developed a rash. She has been on lisinopril since [...] in the 180s. Creatinine was 1.2. Blood pressures since have mostly been in the 110s. Diarrhea resolved after 1 week. Patient had a rash to PPI so she takes cimetidine instead. She denied kidney stone, NSAIDs or high nut intake. Patient has been on a renal diet and has lost 10 to 12 lb over last 6 months. Interim history: Since her last visit with our clinic on 02/25/2020, she has done well overall. She has changed her diet to a plant-based diet, feels healthier and has lost weight. Her most recent creatinine on 01/06/2021 is 1.19 which has remained stable from prior on 06/30/2020 (1.22). Her most recent CT of abdomen/pelvis on 06/30/2020 is negative for any evidence of recurrenceor metastatic disease in abdomen and pelvis and she is currently scheduled to follow with Urology every year. Her UA on 01/06/2021 is negative for any leukocyte esterase, nitrites, blood, or any significant proteins. Her blood pressures at home are ranging 110-130 systolic and 70-80 diastolic. She had 1 reading of 96/57 does not recall if she was symptomatic or not at that point however mentions that her primary care doctor has instructed her to hold her lisinopril when hypotensive. She is currently on lisinopril 2.5 mg daily. She had first dose of [employer] COVID vaccine in June, developed itching of her lips and tongue, with an episode of diarrhea, was referred to urgent care was given Benadryl and Zyrtec to take for 3 days. She would like to know if she qualifies to receive Moderna Covid vaccine. Has been taking dpls-dbp-wzkqarx iron supplement twice weekly, would like to know if she has iron deficiency, her most recent ferritin on 01/06/2021 is 59. Has been taking rxin-ujs-sjbcaoq multiple vitamins with chocolate flavor and is concerned about the amount of phosphorus in that supplement her lisinopril Was prescribed a statin for her hypercholesterolemia but has concern to take his statin due to history of hepatic cysts and hemangioma. She has concern about her most recent DEXA scan, has history of vitamin-D insufficiency and has questions and concerns about her DEXA scan, calcium and vitamin-D supplement. 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 Current Outpatient Medications: ??? calcium carbonate (OS-FAB) 1,250 mg (500 mg calcium) chewable tablet, Chew 500 mg of calcium 2 (two) times a week., Disp: , Rfl: ??? lisinopriL (PRINIVIL,ZESTRIL) 2.5 mg tablet, Take 2.5 mg by mouth daily., Disp: , Rfl: ??? multivitamin (FLINTSTONES) chewable, Chew 1 tablet. Taking every other day. , Disp: , Rfl: ??? MULTIVITAMIN WITH IRON ORAL, , Disp: , Rfl: Current Facility-Administered Medications: ??? gwxxzhzaovo-vzqomjcjf-QKSUHPQryvk 0.25%-1%-1:200,000 injection 2-50 mL, 2-50 mL, infiltration, PRN, Abelardo Heart M.D., 8 mL at 10/10/18 1520 ??? lidocaine-EPINEPHrine 1%-1:200,000 injection 2-50 mL (XYLOCAINE W/EPI), 2-50 mL, infiltration, PRN, Abelardo Heart M.D., 16 mL at 10/10/18 1520 The following portions of the patient's history were reviewed and updated as appropriate: allergies,current medications, family history, medical history, social history, surgical history and problem list. REVIEW OF SYSTEMS Constitutional: Positive for fatigue. ENT: Negative for difficulty hearing. Genitourinary: Negative for abnormal vaginal bleeding, incontinence, difficulty urinating, pain withurination, hematuria, urgency and frequent urination. Musculoskeletal: Negative for arthralgias and pain or stiffness in the joints. The following systems were negative: Skin, ENT, Respiratory, , Hematologic, Musculoskeletal, Neuro, Psych OBJECTIVE BP 126/68 Pulse 64 Temp 36.5 ??C (Tympanic) Ht 158.2 cm Wt 58.6 kg BMI 23.41 kg/m?? PHYSICAL EXAMINATION Constitutional Appearance: Normal appearance. HENT Head: Normocephalic. Mouth/Throat: Mouth: Mucous membranes are moist. Comments: Minimal tongue deviation to the left Eyes Pupils: Pupils are equal, round, and reactive to light. Cardiovascular Rate and Rhythm: Normal rate and regular rhythm. Pulmonary Effort: Pulmonary effort is normal. Breath sounds: Normal breath sounds. Abdominal General: Abdomen is flat. There is no distension. Tenderness: There is no abdominal tenderness. Musculoskeletal Right lower leg: No edema. Left lower leg: No edema. Lymphadenopathy Cervical: No cervical adenopathy. Skin General: Skin is warm. Neurological General: No focal deficit present. Mental Status: She is alert and oriented to person, place, and time. Cranial Nerves: No cranial nerve deficit. Motor: No weakness. Coordination: Coordination normal. Gait: Gait normal. Psychiatric Mood and Affect: Mood normal. Behavior: Behavior normal. DIAGNOSTICS Available labs and diagnostic data reviewed ASSESSMENT / PLAN #1 Chronic Kidney Disease (CKD), Stage 3a Glomerular Filtration Rate (GFR) 45 To 59 (HCC) #2 Hypertensive Chronic Kidney Disease (CKD) Stage 3a Glomerular Filtration Rate (GFR) 45 To 59 (HCC) #3 Hypocholesterolemia This lady presents for follow-up today. Her kidney function has remained stable. Her UA is unremarkable and her blood pressure is well controlled. She has multiple other medical concerns and is in process to establish care with a primary care physician soon. Referred her to our immunization Clinic for recommendations and guidance if she is eligible for Moderna vaccine since she had an adverse reaction to Pfizer vaccine. Will refer her to endocrinology for further management of her hypercholesterolemia as she is hesitant to take the statin prescribed by her primary care doctor; she has concern to take statin due to her history of hepatic cysts and hemangioma. She also has concern about her DEXA scan( Report within normal range however has 17% decrease in bone density compared to her prior DEXA) and would like to know how to take calcium and vitamin-D supplement, endocrinology referral provided. No overt cranial nerve deficit noted on exam however offered neurology referral to address her concern for her minimal tongue deviation, patient was not willing to consider at this point but will let us know if she changes her mind. #Return for follow up in 6 months-one year. #Thank you for allowing us to partici pain in the care of this pleasant lady. Marylou Lea M.D. Onco-Nephrology Fellow [facility] Associated attestation - Tramaine Hope M.D. - 01/10/2021 1:10 PM CDT I saw and evaluated the patient, participating in the alexander portions of the service. I reviewed Dr. Amilcar Lea ???s note. I agree with her findings and plan. Kidney function is stable. However her DEXA scan showed 17% decrease in her bone density. Patient also has question about her cholesterol. Would recommend Endocrinology consultation for these issues. documented in this encounter Plan of Treatment Scheduled Referrals Name Type Priority Associated Order Schedule Diagnoses Endocrinology - Outpatient Referral Routine Chronic Kidney Exp ected: Parathyroid / calcium Disease (CKD), 12/19 / vitamin D disorders Stage 3a Glomerular (Approximate), consult (clinic) Filtration Rate Expires: (GFR) 45 To 59 01/07/2024 (HCC) documented as of this encounter Visit Diagnoses Diagnosis Chronic Kidney Disease (CKD), Stage 3a G lomerular Filtration Rate (GFR) 45 To 59 (HCC) - Primary Hypertensive Chronic Kidney Disease (CKD ) Stage 3a Glomerular Filtration Rate (GFR) 45 To 59 (HCC) Hypocholesterolemia documented in this encounter
--- OUTSIDE RECORDS SUMMARY | 2022-02-09 08:05 | XMS_ITS | Encounter Summary ---
:1955 Author Organization [facility] Address [address] [place] [address] Care Team Providers Name Role Phone Unavailable Primary Care Provider Unavailable Reason for Visit Reason Comments Pre-visit Testing Orders 01/06 Encounter Details Date Type Department Care Team Description 10/25/2020 Clinical Communication Division of Jayy, Pre-v isit Testing Nephrology and [place] [facility] Orders (01/06) Hypertension in [address] [place] [address] [address] [facility] [phone] Social History Tobacco Use Types Packs/Day Years [...] at Date Recorded Female 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 - 10/26/2020 6:59 PM CDT Thanks Telephone Encounter - Carmencita Martinez - 10/26/2020 10:30 AM CDT Please advise of previous message. Telephone Encounter - Carisa Bland - 10/25/2020 8:25 AM CDT Patient scheduled with Dr. Hope 01-06. I have scheduled labs for that morning. Please check with Jayy, patient requesting a lipid panel, and a ferritin checked as well. She has stopped her flinstones iron tablets as it was causing constipation, so she wants to see where she is at. Thank you, Carisa PASS - schedule any testing and mail itinerary. documented in this encounter Plan of Treatment Not on filedocumented as of this encounter Visit Diagnoses Not on filedocumented in this encounter
--- OUTSIDE RECORDS SUMMARY | 2022-02-09 08:05 | XMS_ITS | Encounter Summary ---
:1955 Author Organization [facility] Address [address] [place] [address] Care Team Providers Name Role Phone Unavailable Primary Care Provider Unavailable Reason for Referral MRI/CAT/PET Scan (Routine) - Closed Specialty Diagnoses / Procedures Referred By Contact Refer red To Contact Radiology Diagnoses Cancer Renal Cell Carcinoma Personal History Lois Dugan R.N. [facility] Procedures CT Abdomen Pelvis with IV Contrast CT Abdomen Pelvis without and with IV Contrast Referral ID Status Reason Start Date Expiration Date Visits Requ ested Visits Authorized [id number] Closed 01/07/2020 01/06/2021 1 1 RANGE OPERATOR CLOTH MRI/CAT/PET Scan (Routine) - Closed Specialty Diagnoses / Procedures Referred By Contact Refer red To Contact Radiology Diagnoses Cancer Renal Cell Carcinoma Personal History Lois Dugan R.N. [facility] Procedures CT Chest with IV Contrast Referral ID Status Reason Start Date Expiration Date Visits Requ ested Visits Authorized [id number] Closed 01/07/2020 01/06/2021 1 1 RANGE OPERATOR CLOTH Reason for Visit MRI/CAT/PET Scan (Routine) - Closed Specialty Diagnoses / Procedures Referred By Contact Refer red To Contact Radiology Diagnoses Cancer Renal Cell Carcinoma Personal History Lois Dugan R.N. [facility] Procedures CT Chest with IV Contrast Referral ID Status Reason Start Date Expiration Date Visits Requ ested Visits Authorized [id number] Closed 01/07/2020 01/06/2021 1 1 Encounter Details Date Type Department Care Team Description 06/30/2020 Hospital Encounter Department of Lois Dugan Cancer Renal Cell Radiology, Symone Rowe R.N. Carcinoma P [facility], in History [place], [place] [address] [place] [address] Social History Tobacco Use Types Packs/Day Years [...] or relatives? How often do you attend orthodox or More than 4 times per year 08/15/2021 tenriism services? 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 tablet multivitamin (FLINTSTONES) Chew 1 tablet. 0 11/0302/24/2021 chewable Taking every other day. MULTIVITAMIN WITH IRON 0 07/04/2019 ORAL documented as of this encounter Plan of Treatment Not on filedocumented as of this encounter Procedures Procedure Name Priority Date/Time Associated Comments Diagnosis CT ABDOMEN PELVIS RAD - Routine 06/30/2020 9:05 Cancer Renal Cell R esults for this WITH IV CONTRAST (most inpatients AM DYE RANGE OPERATOR CLOTH Carcinoma procedu re are in and all Personal History the results outpatients) section. CT CHEST WITH IV RAD - Routine 06/30/2020 9:05 Cancer Renal Cell Re sults for this CONTRAST (most inpatients AM DYE RANGE OPERATOR CLOTH Carcinoma procedure a re in and all Personal History the results outpatients) section. CREATININE, POCT, Routine 06/30/2020 8:27 Results for this B AM DYE RANGE OPERATOR CLOTH procedure are i n the results section. CREATININE, POCT, Routine 06/30/2020 8:27 Results for this B AM DYE RANGE OPERATOR CLOTH procedure are i n the results section. documented in this encounter Results CT Abdomen Pelvis with IV Contrast (06/30/2020 9:05 AM DYE RANGE OPERATOR CLOTH) Anatomical Region Laterality Modality Abdomen, Pelvis, Abdominal RST LOS, N/A Comp uted Tomography, Computed Abdominal ARZ LOS, Abdominal FLA LOS Iron ography Specimen (Source) Anatomical Collection Method Collection Time Re ceived Time Location / / Volume Laterality 06/30/2020 10:12 AM DYE RANGE OPERATOR CLOTH Impressions 06/30/2020 12:08 PM DYE RANGE OPERATOR CLOTH No evidence of recurrent or metastatic disease in the abdomen and pelvis. Narrative 06/30/2020 12:08 PM DYE RANGE OPERATOR CLOTH EXAM: ??CT ABDOMEN PELVIS WITH IV CONTRAST COMPARISON: ??CT dated 01/07/2020 FINDINGS: ?? Partial right nephrectomy. Hysterectomy. Small fat-containing midline ventral hernia. Fat-containing inguinal hernias. No adrenal nodules. No concerning lymph nodes. Hepatic cysts and hemangiomas. Splenule. Previously described small bow el inflammation has resolved. Thoracolumbar curvature. Musculoskeletal degenerative changes. Scattered vascular calcifications. Please see separate report for the chest CT performed today. Procedure Note Yonis Lynch M.D., Ph.D. - 06/30/19 21 EXAM: CT ABDOMEN PELVIS WITH IV CONTRAST COMPARISON: CT dated 01/07/2020 FINDINGS: Partial right nephrectomy. Hysterectomy. Small fat-containing midline ventral hernia. Fat-containing inguinal hernias. No adrenal nodules. No concerning lymph nodes. Hepatic cysts and hemangiomas. Splenule. Previously described small bow el inflammation has resolved. Thoracolumbar curvature. Musculoskeletal degenerative changes. Scattered vascular calcifications. Please see separate report for the chest CT performed today. IMPRESSION: No evidence of recurrent or metastatic d isease in the abdomen and pelvis. Lois Dugan R.N. IMG CT PROCEDURES CT Chest with IV Contrast (06/30/2020 9:05 AM DYE RANGE OPERATOR CLOTH) Anatomical Region Laterality Modality Chest, Thoracic RST LOS, Thoracic ARZ N/A Co mputed Tomography, Computed LOS, Thoracic ARZ LOS, Thoracic FLA Kevin graphy LOS Specimen (Source) Anatomical Collection Method Collection Time Re ceived Time Location / / Volume Laterality 06/30/2020 9:27 AM DYE RANGE OPERATOR CLOTH Impressions 06/30/2020 9:32 AM DYE RANGE OPERATOR CLOTH Stable chest CT . Narrative 06/30/2020 9:32 AM DYE RANGE OPERATOR CLOTH EXAM: CT CHEST WITH IV CONTRAST COMPARISON: 01/07/2020 FINDINGS: No adenopathy. Stable tiny micronodules. Stable 4 mm soft tissue nodule or intrapulmonary lymph node right upper lo be (2/335). No new nodules or masses. Linear scar right lower lobe. Mild thora columbar curve with associated hypertrophic changes. This examination was performed in conjun ction with a CT of the abdomen, which will be reported separately. Procedure Note Navneet Landers M.D. - 06/30/2020Fo rmatting of this note might be different from the original. EXAM: CT CHEST WITH IV CONTRAST COMPARISON: 01/07/2020 FINDINGS: No adenopathy. Stable tiny micronodules. Stable 4 mm soft tissue nodule or intrapulmonary lymph node right upper lo be (2/335). No new nodules or masses. Linear scar right lower lobe. Mild thora columbar curve with associated hypertrophic changes. This examination was performed in conjun ction with a CT of the abdomen, which will be reported separately. IMPRESSION: Stable chest CT . Lois ROJAS CT PROCEDURES (ABNORMAL) Creatinine, POCT (06/30/2020 8:27 AM DYE RANGE OPERATOR CLOTH) P athologist Signature Creatinine, 1.1 (H) 0.6 - 1.0 06/30/2020 PCDT POCT, B mg/dL 8:37 AM DYE RANGE OPERATOR CLOTH Comment: ----ADDITIONAL INFORMATION---- Performed at the Point of Care Specimen Anatomical Collection Method Collection Time Receive d Time (Source) Location / / Volume Laterality Blood 06/30/2020 8:27 AM 8:37 DYE RANGE OPERATOR CLOTH AM DYE RANGE OPERATOR CLOTH Unknown Provider LAB POCT ORDERABLES - DEVICE Performing Organization Address City/State/[facility] Code Phon e Number POC [place] PERFORMING [address] [place] [address] LABS PCDT [facility] [place] [address] [place] [facility] [address] (ABNORMAL) Creatinine, POCT (06/30/2020 8:27 AM DYE RANGE OPERATOR CLOTH) athologist Signature eGFR-Black/Afri 60 >=60 06/30/2020 PCMO can Australian, mL/min/BSA 8:37 AM DYE RANGE OPERATOR CLOTH POCT Comment: ----ADDITIONAL INFORMATION---- Estimated GFR calculated using the 2009 CKD_EPI creatinine equation. eGFR Non-Black/ 52 (L) >=60 mL/min/BSA 06/30/2020 8:37 AM DYE RANGE OPERATOR CLOTH PCMO [place], POCT Comment: ----ADDITIONAL INFORMATION---- Estimated GFR calculated using the 2009 CKD_EPI creatinine equation. Specimen Anatomical Collection Method Collection Time Receive d Time (Source) Location / / Volume Laterality Blood 06/30/2020 8:27 AM 8:37 DYE RANGE OPERATOR CLOTH AM DYE RANGE OPERATOR CLOTH Unknown Provider LAB POCT ORDERABLES - DEVICE Performing Organization Address City/State/[facility] Phon e Number POC RST PROTESTANT [address] [place] [address] OUTPATIENT LABS PCMO [facility] [place] [address] [place] [facility] [address] documented in this encounter Visit Diagnoses Diagnosis Cancer Renal Cell Carcinoma Personal His tory documented in this encounter Administered Medications Inactive Administered Medications - up to 3 most recent administrations Medication Order MAR Action Action Date Dose Rate Site iohexoL 300 mg iodine/mL solution Given 06/30/2020 8:50 AM DYE RANGE OPERATOR CLOTH 1 40 mL 1-200 mL (OMNIPAQUE) 1-200 mL, intravenous, Once in imaging, contrast, Starting on Sun06/30/20 at 0811, For 1 dose, Imaging Protocol Orders, Dose per Radiant Medication Guidelines sodium chloride (PF) 0.9 % injection 1-1 00 mL Given 06/30/2020 8:50 AM DYE RANGE OPERATOR CLOTH 50 mL 1-100 mL, intravenous, Once, On Sun06/30/20 at 0815, For 1 dose, Imaging Protocol Orders documented in this encounter
--- OUTSIDE RECORDS SUMMARY | 2022-02-09 08:05 | XMS_ITS | Encounter Summary ---
:1955 Author Organization [facility] Address [address] [place] [address] Care Team Providers Name Role Phone Unavailable Primary Care Provider Unavailable Encounter Details Date Type Department Care Team Description 03/22/2020 Hospital Encounter Department of Muthusamy, Cancer B reast Family History; Laboratory Medicine Len Cohen R enal Cell Carcinoma Personal History; and Pathology, M.B.B.S. Melanoma Of Skin Cancer Personal History ; [address] Cancer Skin Family History; [place], [place] [address] [facility] [facility] [phone] Social History Tobacco Use Types Packs/Day Years [...] or relatives? How often do you attend advent or More than 4 times per year 08/15/2021 pentecostalism services? Do you belong to any clubs or Yes 08/15/2021 organizations such as advent groups, unions, fraternal or athletic groups, or [...] place to sleep or slept in a prison (including now)? Education Answer Date Recorded What is the highest level of school Bachelor's degree (e.g., BA, AB, 03/18/2019 you have completed or the highest BS) degree you have received? Sex Assigned at Date Recorded Female 05/10/2018 8:56 AM OPEN HEARTH FURNACE OPERATOR HELPER documented as of this encounter Medications at Time of Discharge Medication Sig Dispensed Refills Start Date End Date lisinopriL Take 2.5 mg by 0 (PRINIVIL,ZESTRIL) 2.5 mg mouth daily. tablet multivitamin (DAILY Take 1 tablet by 0 04/06/2010 06/30/2020 MULTIPLE) tablet mouth every morning. multivitamin (FLINTSTONES) Chew 1 tablet. 0 11/0302/24/2021 chewable Taking every other day. MULTIVITAMIN WITH IRON 0 07/04/2019 ORAL documented as of this encounter Miscellaneous Notes Result Encounter Note - Noel Cassidy M.B.BJenniferS. - 04/05/2020 11:14 AM OPEN HEARTH FURNACE OPERATOR HELPER [employer] extended multi-cancer panel has been resulted. No pathogenic variants were identified. A single variant of uncertain significance was identified in MSH3 ([id number]). Pathogenic variants in MSH3 are associated with autosomal recessive MSH3 associated polyposis and increased risk for other cancers. With available data and literature, the evidence is insufficient to determine its significanceand she does not have a second hit in this gene, at most she could be a carrier. I discussed the results with the patient over a telephone conversation and answered her questions. We could consider repeat testing in a couple of years when our technology and literature advances, or earlier if any new concerns or developments. She had obtained the details of family variant of galactosemia. She will send us the details as portal attachment and wishes to proceed with carrier testing. We will initiate testing of the familial variant, once we have the details available. HEARTH FURNACE OPERATOR HELPER documented in this encounter Plan of Treatment Not on filedocumented as of this encounter Procedures Procedure Name Priority Date/Time Associated Comments Diagnosis [facility] Liquid Routine 03/22/2020 2:48 Results for this CORPORATION PM OPEN HEARTH FURNACE OPERATOR HELPER procedure are i n the results section. CRYOPRESERVATION FOR Routine 03/22/2020 2:48 Cancer Breast Res ults for this [facility] PM OPEN HEARTH FURNACE OPERATOR HELPER Family History procedure are in Cancer Renal Cell the result s Carcinoma Personal section. History Melanoma Of Skin Cancer Personal History Cancer Skin Family History documented in this encounter Results [facility]. Selleration (03/22/2020 2:48 PM OPEN HEARTH FURNACE OPERATOR HELPER) P athologist Signature Test Name [employer] 03/23/2020 [facility] Custom Panel 9:38 AM OPEN HEARTH FURNACE OPERATOR HELPER Result SEE COMMENT 04/01/2020 [facility] 8:46 AM OPEN HEARTH FURNACE OPERATOR HELPER Comment: For final report, select Lab-Send Out L ab Results hyperlink below. Specimen Anatomical Collection Method Collection Time Receive d Time (Source) Location / / Volume Laterality Varies 03/22/2020 2:48 PM 0 9:38 OPEN HEARTH FURNACE OPERATOR HELPER AM OPEN HEARTH FURNACE OPERATOR HELPER Narrative This result has an attachment that is no t available. Perfecto Shirley M.D. LAB [facility] ORDERABLES Performing Organization Address City/State/ZIP Code Phon e Number [facility] [address] [place] [address] [employer] [facility] [address] [address] Cryopreservation for Molecular Genetic Studies (03/22/2020 2:48 PM OPEN HEARTH FURNACE OPERATOR HELPER) [facility] gist Method Time Signature Comment A DNA specimen has been stored for future genomic studies. 03/29/2020 DTL This specimen has been stored at the request of the 11:26 PM OPEN HEARTH FURNACE OPERATOR HELPER ordering physician for anticipated future testing. In some instances, a portion of the specimen may remain available (by consent) for use by the individual and/or family. This is not a DNA banking service. If intermediate accountant, guaranteed specimen storage is required, DNA banking should be considered. The Genomic Extraction Core extracted DNA. DNA Volume (microliters): ??500+ Please review the following table to determine the possible number of tests that can be added for send out testing. DNA (ul) ? Possible Send Outs (~120 ul) <100 ? Recommend Redraw 100 ?1 250 ?2 500 ?4 Specimen WB Whole Blood 03/29/2020 DTL 11:26 PM OPEN HEARTH FURNACE OPERATOR HELPER Released By JOEL RAMÍREZ 03/29/2020 DTL 11:26 PM OPEN HEARTH FURNACE OPERATOR HELPER Specimen Anatomical Collection Method Collection Time Receive d Time (Source) Location / / Volume Laterality Varies (Blood, 03/22/2020 2:48 PM 020 3:29 Venous) OPEN HEARTH FURNACE OPERATOR HELPER PM OPEN HEARTH FURNACE OPERATOR HELPER Narrative This result has an attachment that is no t available. Noel Vernon LAB GENETIC TESTING Performing Organization Address City/State/ZIP Code Phon e Number [facility] [address] [place], [place] [address] [facility] [place] [address] [facility] [address] [facility] documented in this encounter Visit Diagnoses Diagnosis Cancer Breast Family History Cancer Renal Cell Carcinoma Personal His tory Melanoma Of Skin Cancer Personal History Cancer Skin Family History Mass Kidney documented in this encounter
--- OUTSIDE RECORDS SUMMARY | 2022-02-09 08:05 | XMS_ITS | Encounter Summary ---
:1955 Author Organization [facility] Address [address] [place] [address] Care Team Providers Name Role Phone Unavailable Primary Care Provider Unavailable Encounter Details Date Type Department Care Team Description 01/06/2021 Immunization Department of Family Medicine, [facility], in [place], [place] [address] [place] [address] Social History Tobacco Use Types Packs/Day Years [...] or relatives? How often do you attend confucianist or More than 4 times per year 08/15/2021 sikh services? Do you belong to any clubs or Yes 08/15/2021 organizations such as confucianist groups, unions, fraternal or athletic groups, or [...] place to sleep or slept in a assisted (including now)? Education Answer Date Recorded What is the highest level of school Bachelor's degree (e.g., BA, AB, 03/18/2019 you have completed or the highest BS) degree you have received? Sex Assigned at Date Recorded Female 05/10/2018 8:56 AM TRAFFIC ASSISTANT documented as of this encounter Plan of Treatment Not on filedocumented as of this encounter Visit Diagnoses Not on filedocumented in this encounter
--- OUTSIDE RECORDS SUMMARY | 2022-02-09 08:05 | XMS_ITS | Encounter Summary ---
:1955 Author Organization [facility] Address [address] [place] [address] Care Team Providers Name Role Phone Unavailable Primary Care Provider Unavailable Reason for Visit Outpatient (Routine) - Closed Specialty Diagnoses / Procedures Referred By Contact Refer red To Contact Urology Edy Silverio M.D. [place] [address] [place] [phone] Referral ID Status Reason Start Date Expiration Date Visits Requ ested Visits Authorized [id number] Closed 06/30/2020 06/30/2021 1 1 Encounter Details Date Type Department Care Team Description 08/18/2021 Office Visit Department of Urology Edy Silverio Carcinoma Renal Cell in Rizwana López M.D. Right (HCC) (Primary [address] Dx) [address] [place] [phone] Social History Tobacco Use Types Packs/Day Years [...] More than 4 times per year 08/15/2021 quaker services? Do you belong to any clubs or Yes 08/15/2021 organizations such as muslim groups, unions, [employer] or athletic groups, or school groups? 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 - 08/18/2021 1:30 PM CDT SUBJECTIVE CHIEF COMPLAINT / REASON FOR VISIT Chromophobe renal cell carcinoma recheck. HISTORY OF PRESENT ILLNESS Ms. Willis is a pleasant 66 y.o. 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 Patient had previously noted pulmonary nodularity (03/19/19), and was seen by pulmonary medicine on 10/2018 and was recommended follow-up CT in [address] chest imaging showed a new nodule 1-2 mm nodules in the lower lobes and stable or resolved nodules in 2019. Ms. Willis was last seen in Urology on 06/30/2020 and was found to have no evidence of disease in the abdomen and pelvis and stable pulmonarynodules with no new pulmonary nodules. She was asked to return in one year for follow-up. Nephrology consult have been obtained. She was last seen by Nephrology on 01/06/2021 and was asked to return in 6 months to 1 year for follow-up. ?? Genetic evaluation was performed in 03/2020. Testing at that time did not reveal pathological variants but a single variant of uncertain significance was identified in MSH3. Pathological variants in MSH3 are associated with autosomal recessive MSH3 associated polyposis and increased risk for other cancers. At most, she was told she could be a carrier. Repeat testing in a couple of years was recommended when advances in technology and literature advances may be available. She has otherwise been doing well, she is on a plant based diet which she has been doing very well with. Laboratory evaluation demonstrates creatinine 1.13 from 1.19 in December, hemoglobin 13.4, [id number], HDL 45, triglycerides 146. Her CT imaging of the chest and abdomen pelvis is reassuring. Past Medical History: Diagnosis Date ??? Anemia 2016 Not a current issue, did take iron PO for 1 year. ??? Carcinoma Renal Cell Right (HCC) 07/02/2018 Chromophobe renal cell forming 7.5 cm mass in the right kidney ??? Cataract ??? Deficiency Vitamin D ??? Gastroesophageal Reflux Disease ??? Hernia Umbilical ??? Hypertension NOS ??? Lesion Liver 04/2018 Multiple indeterminate lesions ??? Mass Kidney 04/2018 Right kidney ??? Melanoma Face (HCC) ??? Melanoma Skin (HCC) 09/05/2018 ??? Polyp Colon 2013 ??? Post Operative Nausea/Vomiting ??? Pulmonary Nodule Computed Tomography Indeterminate 04/2018 Past Surgical History: Procedure Laterality Date ??? HERNIA REPAIR ??? HYSTERECTOMY 2005 spinal, some awarness during procedure ??? INGUINAL HERNIA REPAIR Left as an . ??? NEPHRECTOMY - PARTIAL Right 07/02/2018 Procedure: Nephrectomy, Partial.; Surgeon: Edy Silverio M.D.; Location: [facility] OR MEDICATION Allergies Allergen Reactions ??? Pantoprazole Anaphylaxis and Other (see comments) swelling to uvula, and rash in groin ??? Hydrochlorothiazide Angioedema Not clearly related but possible. ??? Rabeprazole Rash Groin area Social History Tobacco Use ??? Smoking status: Never Smoker ??? Smokeless tobacco: Never Used ??? Tobacco comment: passive smoke as a child, teen Substance Use Topics ??? Alcohol use: Not Currently Alcohol/week: 0.0 standard drinks Comment: not since 06/2017 Family History Problem Relation Age of Onset ??? Diabetes Mother's Sister ??? Obesity Mother's Sister ??? Hypertension Mother ??? Colon polyps Mother ??? Arthritis Mother ??? Breast cancer Mother ??? Hypertension Paternal Grandmother ??? Stroke Paternal Grandmother ??? Dementia Maternal Grandfather ??? Coronary artery disease Father ??? Hyperlipidemia Father ??? Unexplained Father ??? Coronary artery disease Paternal Grandfather ??? Asthma Brother ??? Colon polyps Sister ??? Skin cancer Sister Basal-face ??? Arthritis Maternal Grandmother Constitutional: Positive for fatigue and fever. ENT: Positive for sinus congestion. Respiratory: Positive for coughing up mucus (phlegm). Gastrointestinal: Positive for constipation. Musculoskeletal: Positive for back pain and muscle pain/stiffness. The following systems were negative: Skin, Eyes, CV, , Hematologic, Neuro, Psych OBJECTIVE PHYSICAL EXAMINATION General: Resting comfortably in the chair. Head: Normocephalic, atraumatic. Eyes: Extraocular muscles intact with anicteric sclerae. Lungs: Nonlabored respirations on room air. Abdomen: soft, nondistended, nontender. Extremities: No edema. Psych: Appropriate mood and affect. Neuro: Ambulates with a normal gait. Skin: No obvious skin lesions. DIAGNOSTICS Labs: Recent Results (from the past 72 hour(s)) CBC without Differential Collection Time: 08/18/21 8:01 AM Result Value Hemoglobin 13.4 Hematocrit 41.4 Erythrocytes 4.58 MCV 90.4 RBC Distrib Width 12.7 Platelet Count 221 Leukocytes 4.9 Basic Metabolic Panel Collection Time: 08/18/21 8:01 AM Result Value Potassium, S 3.8 Sodium, S 143 Chloride, S 104 Bicarbonate, S 28 Anion Gap 11 BUN (Blood Urea Nitrogen), S 12 Creatinine, S 1.13 (H) eGFR-Non Black/ 50 (L) eGFR-Black/ 58 (L) Calcium, Total, S 9.5 Glucose, S 69 (L) Lipid Panel Collection Time: 08/18/21 8:01 AM Result Value Cholesterol, Total, S 182 Triglycerides, S 146 Cholesterol, HDL, S 45 (L) Calculated LDL 108 Non HDL Cholesterol 137 Imaging: CT Chest with IV Contrast Result Date: 08/18/2021 Impression: Stable chest CT. CT Abdomen Pelvis with IV Contrast Result Date: 08/18/2021 Impression: No evidence of recurrent or metastatic disease in the abdomen or pelvis. 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 Willis in clinic today, she has otherwise been doing well, she is on a plant based diet which she is tolerating well and enjoying. Her laboratory evaluation is reassuring, her CT imaging is reassuring. In regards to her cholesterol panel I discussed cutting base with her en docrinologist team as she previously discussed starting statin with her endocrinology team and she did ask about follow-up with nephrology team. Overall plan follow-up in 1 year with imaging and lab evaluation documented in this encounter Plan of Treatment Not on filedocumented as of this encounter Visit Diagnoses Diagnosis Carcinoma Renal Cell Right (HCC) - Prima ry documented in this encounter
--- OUTSIDE RECORDS SUMMARY | 2022-02-09 08:05 | XMS_ITS | Encounter Summary ---
:1955 Author Organization [facility] Address [address] [place] [address] Care Team Providers Name Role Phone Unavailable Primary Care Provider Unavailable Reason for Visit Outpatient (Routine) - Closed Specialty Diagnoses / Procedures Referred By Contact Refer red To Contact Nutrition Diagnoses Chronic Kidney Disease (CKD), Stage 3a Glomerular Filtration Rate (GFR) 45 To 59 (HCC) [address] [place] [address] [place], [place] [phone] Referral ID Status Reason Start Date Expiration Date Visits Requ ested Visits Authorized [id number] Closed 02/25/2021 02/25/2022 1 1 Encounter Details Date Type Department Care Team Description 04/27/2021 Clinical Support Department of Ashley Santamaria Nutrition in Darian Steve, Disease (CKD) , Stage [place], [place] RDN, LD 3a Glomerular [address] [facility] Filtration Rate (GFR) [place], [place] 45 To 59 (HCC) [phone] Social History Tobacco Use Types Packs/Day Years [...] or relatives? How often do you attend judaism or More than 4 times per year 08/15/2021 moravian services? Do you belong to any clubs or Yes 08/15/2021 organizations such as judaism groups, unions, fraternal or athletic groups, or [...] at Date Recorded Female 05/10/2018 8:56 AM CAB WORKER documented as of this encounter Last Filed Vital Signs Vital Sign Reading Time Taken Comments Blood Pressure - - Pulse - - Temperature - - Respiratory Rate - - Oxygen Saturation - - Inhaled Oxygen Concentration - - Weight 59 kg (130 lb 1.1 oz) 04/27/2021 6:49 AM CAB WORKER Height 157.5 cm (5' 2.01) 04/27/2021 6:50 AM CAB WORKER Body Mass Index 23.78 04/27/2021 6:49 AM CAB WORKER documented in this encounter Progress Notes Evi Santamaria M.S., RDN, LD - 04/27/2021 7:00 AM CST CHIEF COMPLAINT/REASON FOR VISIT Chronic kidney disease HISTORY OF PRESENT ILLNESS Met with patient and spouse. ASSESSMENT Relevant Social and Family History Patient lives with her spouse. She does the grocery shopping and cooking at home. Food/Nutrition Related History Previous diet experience: Patient is working diligently to follow a whole foods, plant based diet. Typical Daily Intake Breakfast: 1/2 cup oatmeal(dry before cooking), 1/2 cup berries, 1/2 cup almond milk Morning Snack: apple or pear, 1-2 slices toast Noon Meal: salad with greens, beans, veg and vinegar dressing or 2 corn tortillas with vegan cheese and veg melted inside Afternoon Snack: Jemima Doone cookies, cup of tea with almond milk or zucchini and hummus Evening meal: 1 cup rice, 1/2 cup beans, 1 cup lettuce, 1 cup peppers and onion ,cilantro and [place] juice and 2 Tbsp. salsa or 1 salmon burger, 1 cup rice, 1 cup green beans Evening Snack: fudge bar, or barak or dark chocolate square What are three of your most frequently consumed beverages?: water, coffee, almond milk How much fluid do you drink in a day? (One cup is 8 ounces) : 80+ ounces Beverage choices: water, coffee - 1 cup per week or tea Salt/Seasoning use: no salt is added Physical activity: patient is walking for exercise mast days per week Weight History Date: 04/27/21 Weight: Wt 59 kg kg Body mass index is Body mass index is 23.78 kg/m??.. Weight is down significantly since our last visit. Estimation of Nutritional Needs Weight Used for Equation Calculations: 59 kg Date: 02/25/2020 Estimation of Nutritional Needs PROTEIN Weight:59 kg (actual body weight) Protein Range: 0.6-0.8 grams/kg Protein Goal 35 to 47 grams per day Suggest: 45-50 grams Method to Estimate Energy Needs: [place] BEE (Basal): 1197 HB Adjusted: 1436 Total Calorie Needs: 2524-7688 calories NUTRITION DIAGNOSIS Altered nutrition-related laboratory values (NC-2.2) related to stage 3 chronic kidney disease as evidenced by stable eGFR and electrolytes. Nutrition Prescription/Recommendation 9162-2020 mg sodium, 45-60 grams protein INTERVENTION Education: Reviewed previous diet guidelines. Encouraged a little more liberal approach without potassium or natural phosphorus restriction. Discussed B12 options. MONITORING AND EVALUATION: Nutrition parameter to monitor: Food intake Desired Outcome: Maintain nutrition related lab values within target range Patient Goal(s): 1. 9803-7312 mg sodium 2. 45-50 m protein 3. Avoid phosphorus additives/processed food FOLLOW UP PLAN: Provided name and phone number if questions should arise , Patient will call to schedule follow-up appointment if desired Time spent with patient (minutes): 60 WORKER documented in this encounter Plan of Treatment Not on filedocumented as of this encounter Visit Diagnoses Diagnosis Chronic Kidney Disease (CKD), Stage 3a G lomerular Filtration Rate (GFR) 45 To 59 (HCC) documented in this encounter
--- OUTSIDE RECORDS SUMMARY | 2022-02-09 08:05 | XMS_ITS | Encounter Summary ---
:1955 Author Organization [facility] Address [address] [place] [address] Care Team Providers Name Role Phone Unavailable Primary Care Provider Unavailable Encounter Details Date Type Department Care Team Description 05/12/2021 Clinical Communication Department of Urology Edy Silverio in Rizwana López M.D. [place] [address] [facility] [address] [place] [phone] Social History Tobacco Use Types Packs/Day Years [...] or relatives? How often do you attend christian or More than 4 times per year 08/15/2021 yarsani services? Do you belong to any clubs or Yes 08/15/2021 organizations such as christian groups, unions, fraternal or athletic groups, or [...] place to sleep or slept in a fci (including now)? Education Answer Date Recorded What is the highest level of school Bachelor's degree (e.g., BA, AB, 03/18/2019 you have completed or the highest BS) degree you have received? 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 Alicia will inform pt of change through portal. IDE TOOL DIE MAKER Telephone Encounter - Amanda Jiang - 05/23/2021 10:03 AM CST Called pt she asked if team can call her she is scheduled for 08/[address] Silverio. She had questions about the Chest Xray. If she should do a Ct chest instead. She had mentioned that she was asked at last meeting by team if she lives in house built in 1969. She does and in 1996 she was removing her edilma and may have had exposures with Abestos and was seeing if maybe she should do a Chest Ctinstead. Please review and advise and call pt. Thank you. IDE TOOL DIE MAKER Telephone Encounter - Amanda Jiang - 05/12/2021 2:15 PM CST Pt called in due for follow up with Dr. Silverio for 08/01 nothing available pt is seeing if this can be postpone till end of July or August? Please review and advise,thank you. IDE TOOL DIE MAKER documented in this encounter Plan of Treatment Not on filedocumented as of this encounter Visit Diagnoses Not on filedocumented in this encounter
--- OUTSIDE RECORDS SUMMARY | 2022-02-09 08:05 | XMS_ITS | Encounter Summary ---
:1955 Author Organization [facility] Address [address] [place] [address] Care Team Providers Name Role Phone Unavailable Primary Care Provider Unavailable Encounter Details Date Type Department Care Team Description 06/30/2020 Hospital Encounter Department of Lois Dugan Cancer Renal Cell Laboratory Medicine rBigido Rowe Carcinom a Personal and Pathology, History [facility], in [place], [place] [address] [place] [address] Social History Tobacco Use Types Packs/Day Years [...] More than 4 times per year 08/15/2021 restoration services? Do you belong to any clubs [...] place to sleep or slept in a mcc (including now)? Education Answer Date Recorded What is the highest level of school Bachelor's degree (e.g., BA, AB, 03/18/2019 you have completed or the highest BS) degree you have received? Sex Assigned at Date Recorded Female 05/10/2018 8:56 AM HEALTH ASSOCIATE documented as of this encounter Medications at [...] Procedure Name Priority Date/Time Associated Comments Diagnosis MICROSCOPIC AUTOMATED Routine 06/30/2020 8:01 AM Results for this HEALTH ASSOCIATE procedure are i n the results section. ALBUMIN, RANDOM, U Routine 06/30/2020 8:01 AM Cancer Renal Giulia l Results for this HEALTH ASSOCIATE Carcinoma Personal procedure are in History the results section. PROTEIN/CREATININE Routine 06/30/2020 8:01 AM Cancer Renal Giulai l Results for this RATIO, RANDOM, URINE HEALTH ASSOCIATE Carcinoma Personal p rocedure are in History the results section. URINALYSIS WITH Routine 06/30/2020 8:01 AM Cancer Renal Cell R esults for this MICROSCOPIC HEALTH ASSOCIATE Carcinoma Personal procedure are in History the results section. documented in this encounter Results Microscopic Automated (06/30/2020 8:01 AM HEALTH ASSOCIATE) P athologist Signature Microscopy Normal 06/30/2020 8:41 CASS AM HEALTH ASSOCIATE Specimen Anatomical Collection Method Collection Time Receive d Time (Source) Location / / Volume Laterality Urine 06/30/2020 8:01 AM 8:01 HEALTH ASSOCIATE AM HEALTH ASSOCIATE Lois Dugan R.N. LAB URINE ORDERABLES Performing Organization Address [facility] Phon e Number [facility] - [address] [place], [place] [address] [place] [address] Laboratories[address] (ABNORMAL) Protein/Creatinine Ratio, Random, Urine (06/30/2020 8:01 AM HEALTH ASSOCIATE) P athologist Signature Protein, Total, <4 mg/dL 06/30/2020 CASS Random, U 8:28 AM HEALTH ASSOCIATE Comment: ----ADDITIONAL INFORMATION---- On 11/14/2016 the total protein assay me thod changed resulting in approximately a 15% increase in prote in values. Creatinine Concentration 21 mg/dL 06/30/2020 8:26 AM HEALTH ASSOCIATE CASS Protein/Creatinine Ratio <0.19 (H) <0.18 mg/mg 06/30/2020 8: 26 AM HEALTH ASSOCIATE CASS Comment: ----ADDITIONAL INFORMATION---- On 11/14/2016 the total protein assay me thod changed resulting in approximately a 15% increase in prote in values. Specimen Anatomical Collection Method Collection Time Receive d Time (Source) Location / / Volume Laterality Urine (Urine, 06/30/2020 8:01 AM 06/30/19 8:01 Clean Catch) HEALTH ASSOCIATE AM HEALTH ASSOCIATE Lois Dugan R.N. LAB URINE ORDERABLES Performing Organization Address [facility] Phon e Number [facility] - [address] [place], [place] [address] [place] [address] [address] Albumin, Random, Urine (06/30/2020 8:01 AM HEALTH ASSOCIATE) P athologist Signature Albumin, <5.0 mg/L 06/30/2020 DTL Random, U 9:32 AM HEALTH ASSOCIATE Comment: ----ADDITIONAL INFORMATION---- This test has been modified from the man ufacturer's instructions. Its performance characteri stics were determined by [facility] in a manner co nsistent with CLIA requirements. This test has not bee n cleared or approved by the U.S. Food and Drug Admin istration. Creatinine 21 mg/dL 06/30/2020 8:26 AM HEALTH ASSOCIATE CASS Albumin/Creatinine Ratio <24 <25 mg/g 06/30/2020 9:32 AM HEALTH ASSOCIATE DTL Comment: This ratio may not correspond with the r eference range because one or both of the values used t o calculate the ratio was above or below the quantificat ion limits. Specimen Anatomical Collection Method Collection Time Receive d Time (Source) Location / / Volume Laterality Urine (Urine, 06/30/2020 8:01 AM 06/30/19 8:01 Clean Catch) HEALTH ASSOCIATE AM HEALTH ASSOCIATE Lois Dugan R.N. LAB URINE ORDERABLES Performing Organization Address City/State/ZIP Code Phon e Number [facility] - [address] [place], [place] [address] [facility] [place] [address] Laboratories-[facility] [address] [place] [address] [facility] [address] (ABNORMAL) Urinalysis with Microscopic: Urine, Voided (06/30/2020 8:01 AM HEALTH ASSOCIATE) P athologist Signature Source Void 06/30/2020 CASS 8:01 AM HEALTH ASSOCIATE Appearance Normal Normal 06/30/2020 CASS 8:24 AM HEALTH ASSOCIATE Osmolality, U 82 (L) 150 - 1150 06/30/2020 CASS mOsm/kg 8:58 AM HEALTH ASSOCIATE pH, U 6.1 4.5 - 8.0 06/30/2020 CASS 8:58 AM HEALTH ASSOCIATE Comment: ----ADDITIONAL INFORMATION---- This test was developed and its performa nce characteristics determined by [facility] in a manner co nsistent with CLIA requirements. This test has not bee n cleared or approved by the U.S. Food and Drug Admin istration. Glucose <2 0 - 15 mg/dL 06/30/2020 8:24 AM HEALTH ASSOCIATE CASS Protein, U <4 <26 mg/dL 06/30/2020 8:24 AM HEALTH ASSOCIATE CASS Comment: ----ADDITIONAL INFORMATION---- On 11/14/2016 the total protein assay me thod changed resulting in approximately a 15% increase in prote in values. Protein/Osmolality <0.49 (H) <0.42 Ratio 06/30/2020 8:58 AM HEALTH ASSOCIATE CASS Comment: ----ADDITIONAL INFORMATION---- On 11/14/2016 the total protein assay me thod changed resulting in approximately a 15% increase in prote in values. Predicted 24 Hr Protein <349 mg/24 h 06/30/2020 8:58 AM HEALTH ASSOCIATE CASS Predicted Range <1411 mg/24 h 06/30/2020 8:58 AM HEALTH ASSOCIATE R COLLIN Hemoglobin, QL Negative Negative 06/30/2020 8:41 AM HEALTH ASSOCIATE RE NA Specimen Anatomical Collection Method Collection Time Receive d Time (Source) Location / / Volume Laterality Urine (Urine, 06/30/2020 8:01 AM 06/30/19 8:01 Voided) HEALTH ASSOCIATE AM HEALTH ASSOCIATE Lois Dugan R.N. LAB URINE ORDERABLES Performing Organization Address City/State/ZIP Code Phon e Number [facility] - [address] [place], [place] [address] [facility] [place] [address] Laboratories[facility] [address] documented in this encounter Visit Diagnoses Diagnosis Cancer Renal Cell Carcinoma Personal His tory documented in this encounter
--- OUTSIDE RECORDS SUMMARY | 2022-02-09 08:05 | XMS_ITS | Encounter Summary ---
:1955 Author Organization [facility] Address [address] [place] [address] Care Team Providers Name Role Phone Unavailable Primary Care Provider Unavailable Reason for Referral Appointment Request (Routine) - Closed Specialty Diagnoses / Procedures Referred By Contact Refer red To Contact Diagnoses Chronic Kidney Disease (CKD), Stage 3 Unspecified (HCC) Tramaine Hope M.D. Procedures Uric Acid [address] [place] [phone] Referral ID Status Reason Start Date Expiration Date Visits Requ ested Visits Authorized [id number] Closed 10/21/2020 10/21/2021 1 1 Reason for Visit Appointment Request (Routine) - Closed Specialty Diagnoses / Procedures Referred By Contact Refer red To Contact Diagnoses Chronic Kidney Disease (CKD), Stage 3 Unspecified (HCC) Tramaine Hope M.D. Procedures Uric Acid [address] [place] [phone] Referral ID Status Reason Start Date Expiration Date Visits Requ ested Visits Authorized [id number] Closed 10/21/2020 10/21/2021 1 1 Encounter Details Date Type Department Care Team Description 01/06/2021 Hospital Encounter Department of Jayy, Chronic Kidney Disease (CKD), Stage 3 Unspecified (HCC); Laboratory Medicine [place]d Deficiency Iron; and Pathology, [address] [place] [address], in [place] [phone] [place] [phone] [place] [address] (Work) [place], [place] [phone] (Fax) [phone] Social History Tobacco Use Types Packs/Day Years [...] More than 4 times per year 08/15/2021 pentecostal services? 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 tablet calcium carbonate Chew 500 mg of 0 11/2020 (OS-FAB) 1,250 mg (500 mg calcium 2 (two) calcium) chewable tablet times a week. multivitamin Chew 1 tablet. 0 11/04/2019 02/25/20 21 (FLINTSTONES) chewable Taking every other day. MULTIVITAMIN WITH IRON 0 07/04/2019 ORAL documented as of this encounter Plan of Treatment Not on filedocumented as of this encounter Procedures Procedure Name Priority Date/Time Associated Comments Diagnosis LIPID PANEL, S Routine 01/06/2021 7:34 AM Deficiency Ir on Results for this CDT Hyperlipidemia procedure are in Mixed the results section. CBC WITH DIFFERENTIAL, Routine 01/06/2021 7:34 AM Chronic Kidn ey Results for this B CDT Disease (CKD), procedure are in Stage 3 Unspecified the resu lts (HCC) section. URIC ACID, S/P Routine 01/06/2021 7:34 AM Chronic Kidney Resul ts for this CDT Disease (CKD), procedure are in Stage 3 Unspecified the resu lts (HCC) section. FERRITIN, S Routine 01/06/2021 7:34 AM Deficiency Ir on Results for this CDT Hyperlipidemia procedure are in Mixed the results section. COMPREHENSIVE Routine 01/06/2021 7:34 AM Chronic Kidney Result s for this METABOLIC PANEL, S/P CDT Disease (CKD), proce citlalie are in Stage 3 Unspecified the resu lts (HCC) section. documented in this encounter Results Ferritin (01/06/2021 7:34 AM CDT) P athologist Signature Ferritin, S 59 11 - 307 01/06/2021 DTL mcg/L 8:57 AM CDT Specimen Anatomical Collection Method Collection Time Receive d Time (Source) Location / / Volume Laterality Blood (Blood, 01/06/2021 7:34 AM 01/07/20 7:56 Venous) CDT AM CDT Tramaine Hope M.D. LAB BLOOD ADD-ON Performing Organization Address City/State/ZIP Code Phon e Number [facility] - [address] [place], [place] [address] [facility] [place] [address] Laboratories-[facility] [address] (ABNORMAL) Lipid Panel (01/06/2021 7:34 AM CDT) athologist Signature Cholesterol, 214 (H) mg/dL 01/06/2021 DTL Total 9:17 AM CDT Comment: ----REFERENCE VALUE---- Desirable: < 200 Borderline high: 200 - 239 High: > or = 240 Triglycerides 115 mg/dL 01/06/2021 9:17 AM CDT DTL Comment: ----REFERENCE VALUE---- Normal: <150 Borderline high: 150-199 High: 200-499 Very high: > or =500 Cholesterol, HDL, S 48 (L) >=50 mg/dL 01/06/2021 9:17 AM CDT DTL Calculated LDL 143 (H) mg/dL 01/06/2021 9:17 AM CDT DT L Comment: ----REFERENCE VALUE---- Desirable: <100 mg/dL Above Desirable: 100-129 mg/dL Borderline High: 130-159 mg/dL High: 160-189 mg/dL Very High: >=190 mg/dL Cholesterol, Non-HDL, Calculated 166 (H) mg/dL 021 9:17 AM CDT DTL Comment: ----REFERENCE VALUE---- Desirable: <130 Above Desirable: 130-159 Borderline high: 160-189 High: 190-219 Very high: > or =220 Specimen Anatomical Collection Method Collection Time Receive d Time (Source) Location / / Volume Laterality Blood (Blood, 01/06/2021 7:34 AM 01/07/20 7:56 Venous) CDT AM CDT Tramaine Hope M.D. LAB BLOOD ADD-ON Performing Organization Address City/State/ZIP Code Phon e Number [facility] - [address] [place], [place] [address] [facility] [place] [address] Laboratories-[facility] [address] (ABNORMAL) Uric Acid (01/06/2021 7:34 AM CDT) athologist Signature Uric Acid, S 6.3 (H) 2.7 - 6.1 01/06/2021 DTL mg/dL 9:17 AM CDT Specimen Anatomical Collection Method Collection Time Receive d Time (Source) Location / / Volume Laterality Blood (Blood, 01/06/2021 7:34 AM 01/07/20 7:56 Venous) CDT AM CDT Tramaine Hope M.D. LAB BLOOD ADD-ON Performing Organization Address City/State/ZIP Code Phon e Number [facility] - [address] [place] [address] [facility] [place] [place] [address] [facility] 200 [facility] CBC with Differential, Blood (01/06/2021 7:34 AM CDT) P athologist Signature Hemoglobin 13.4 11.6 - 01/06/2021 DTL 15.0 g/dL 8:21 AM CDT Hematocrit 41.1 35.5 - 01/06/2021 DTL 44.9 % 8:21 AM CDT Erythrocytes 4.56 3.92 - 01/06/2021 DTL 5.13 8:21 AM CDT x10(12)/L MCV 90.1 78.2 - 01/06/2021 DTL 97.9 fL 8:21 AM CDT RBC Distrib Width 12.8 12.2 - 01/06/2021 DTL 16.1 % 8:21 AM CDT Platelet Count 184 157 - 371 01/06/2021 DTL x10(9)/L 8:21 AM CDT Leukocytes 5.4 3.4 - 9.6 01/06/2021 DTL x10(9)/L 8:21 AM CDT Neutrophils 3.20 1.56 - 01/06/2021 DTL 6.45 8:21 AM CDT x10(9)/L Lymphocytes 1.56 0.95 - 01/06/2021 DTL 3.07 8:21 AM CDT x10(9)/L Monocytes 0.39 0.26 - 01/06/2021 DTL 0.81 8:21 AM CDT x10(9)/L Eosinophils 0.20 0.03 - 01/06/2021 DTL 0.48 8:21 AM CDT x10(9)/L Basophils 0.04 0.01 - 01/06/2021 DTL 0.08 8:21 AM CDT x10(9)/L Specimen Anatomical Collection Method Collection Time Receive d Time (Source) Location / / Volume Laterality Blood (Blood, 01/06/2021 7:34 AM 01/07/20 8:02 Venous) CDT AM CDT Tramaine Hope M.D. LAB BLOOD ADD-ON Performing Organization Address City/State/ZIP Code Phon e Number [facility] - [address] [place], [place] [address] [facility] [place] [address] Laboratories-[facility] [address] (ABNORMAL) Comprehensive Metabolic Panel (01/06/2021 7:34 AM CDT) [facility] Potassium, S 4.2 3.6 - 5.2 01/06/2021 DTL mmol/L 9:24 AM CDT Sodium, S 141 135 - 145 01/06/2021 DTL mmol/L 9:24 AM CDT Chloride, S 103 98 - 107 01/06/2021 DTL mmol/L 9:24 AM CDT Bicarbonate, S 27 22 - 29 01/06/2021 DTL mmol/L 9:24 AM CDT Anion Gap 11 7 - 15 01/06/2021 DTL 9:24 AM CDT BUN (Blood Urea 16 6 - 21 01/06/2021 DTL Nitrogen), S mg/dL 9:24 AM CDT Creatinine 1.19 (H) 0.59 - 01/06/2021 DTL 1.04 mg/dL 9:24 AM CDT eGFR-Non 47 (L) >=60 01/06/2021 DTL Black/ mL/min/BSA 9:24 AM CDT Russian Comment: ----ADDITIONAL INFORMATION---- Estimated GFR calculated using the 2009 CKD_EPI creatinine equation. eGFR-Black/ 55 (L) >=60 mL/min/BSA 2020 9:24 AM CDT DTL Comment: ----ADDITIONAL INFORMATION---- Estimated GFR calculated using the 2009 CKD_EPI creatinine equation. Calcium, Total, S 9.7 8.8 - 10.2 mg/dL 01/06/2021 9:24 AM CDT DTL Glucose, S 92 70 - 140 mg/dL 01/06/2021 9:24 AM CDT D TL Protein, Total, S 6.5 6.3 - 7.9 g/dL 01/06/2021 9:24 A M CDT DTL Albumin, S 4.5 3.5 - 5.0 g/dL 01/06/2021 9:24 AM CDT D TL Aspartate Aminotransferase (AST), 23 8 - 43 U/L 01/06 9:24 AM CDT DTL S Alkaline Phosphatase, S 98 35 - 104 U/L 01/06/2021 9: 24 AM CDT DTL Alanine Aminotransferase (ALT), S 20 7 - 45 U/L 01/06 9:24 AM CDT DTL Bilirubin, Total, S 0.4 <=1.2 mg/dL 01/06/2021 9:24 AM CDT DTL Specimen Anatomical Collection Method Collection Time Receive d Time (Source) Location / / Volume Laterality Blood (Blood, 01/06/2021 7:34 AM 01/07/20 7:56 Venous) CDT AM CDT Tramaine Hope M.D. LAB BLOOD ADD-ON Performing Organization Address City/State/ZIP Code Phon e Number [facility] - [address] [place], [place] [address] [facility] [place] [address] [facility] [address] documented in this encounter Visit Diagnoses Diagnosis Chronic Kidney Disease (CKD), Stage 3 Un specified (HCC) Deficiency Iron Hyperlipidemia Mixed documented in this encounter
--- OUTSIDE RECORDS SUMMARY | 2022-02-09 08:05 | XMS_ITS | Encounter Summary ---
:1955 Author Organization [facility] Address [address] [place] [address] Care Team Providers Name Role Phone Unavailable Primary Care Provider Unavailable Reason for Visit Reason Comments Pre-visit Intake Outpatient (Routine) - Closed Specialty Diagnoses / Procedures Referred By Contact Refer red To Contact Endocrinology Diagnoses Chronic Kidney Disease (CKD), Stage 3a Glomerular Filtration Rate (GFR) 45 To 59 (HCC) Amilcar Lea[address] [address] Referral ID Status Reason Start Date Expiration Date Visits Requ ested Visits Authorized [id number] Closed 01/06/2021 01/06/2022 1 1 Encounter Details Date Type Department Care Team Description 02/24/2021 Clinical Communication Visit Review in [facility]al Lea e-visit Intake [address] [address] Social History Tobacco Use Types Packs/Day Years [...] many times do you More than three astya es a week 08/15/2021 talk on the phone with family, friends, or neighbors? How often do you get together with friends Once a week 08/15/2021 or relatives? How often do you attend lutheran or More than 4 times per year 08/15/2021 confucianist services? 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
--- OUTSIDE RECORDS SUMMARY | 2022-02-09 08:05 | XMS_ITS | Encounter Summary ---
:1955 Author Organization [facility] Address [address] [place] [address] Care Team Providers Name Role Phone Unavailable Primary Care Provider Unavailable Reason for Visit Reason Comments Genetic Testing Encounter Details Date Type Department Care Team Description 04/16/2020 Clinical Communication Department of [facility], Gene tic Testing Medical Genetics in [place], [place] [facility] [address] [facility] [address] [facility] [phone] [facility] [phone] [place] [address] Social History Tobacco Use Types Packs/Day Years [...] or relatives? How often do you attend adventism or More than 4 times per year 08/15/2021 nondenominational services? 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 Cassidy. SERVICE SUPERVISOR Telephone Encounter - Delphine Barkley - 04/16/2020 4:03 PM CST Send out Lab test Provider: Noel Urrutia Date scheduled: 04/16/2020 (off cryo) Test: Family Variant Testing ([id number]) Gene: GALT Lab: [facility] doing insurance check: Yes, [facility] Proband: Sister (non-[place] patient) Violet Vincent, her testing was complete at [facility] SERVICE SUPERVISOR documented in this encounter Plan of Treatment Not on filedocumented as of this encounter Visit Diagnoses Not on filedocumented in this encounter
--- OUTSIDE RECORDS SUMMARY | 2022-02-09 08:05 | XMS_ITS | Encounter Summary ---
:1955 Author Organization [facility] Address [address] [place] [address] Care Team Providers Name Role Phone Unavailable Primary Care Provider Unavailable Reason for Visit Reason Comments Genetic Testing Encounter Details Date Type Department Care Team Description 03/22/2020 Clinical Communication Department of Perfecto Shirleyetic Testing Medical Genetics [place], [place] [address] [facility] [address] [place] [phone] Social History Tobacco Use Types Packs/Day Years [...] or relatives? How often do you attend mosque or More than 4 times per year 08/15/2021 mandaen services? 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 Forwarded to the provider for review. T OFFICE ASSISTANT Telephone Encounter - Delphine Barkley - 03/22/2020 2:27 PM CST Send out Lab test Provider: Perfecto Wetzle Date scheduled: 03/22/2020 Test: Custom Panel ([id number]) Multi-Cancer Panel ([id number]) Renal/Urinary Tract Cancers Panel (90917) add-on Preliminary Evidence (37780.1) Lab: [facility] doing insurance check: Yes, [facility] T OFFICE ASSISTANT documented in this encounter Plan of Treatment Not on filedocumented as of this encounter Visit Diagnoses Not on filedocumented in this encounter
--- OUTSIDE RECORDS SUMMARY | 2022-02-09 08:05 | XMS_ITS | Encounter Summary ---
:1955 Author Organization [facility] Address [address] [place] [address] Care Team Providers Name Role Phone Unavailable Primary Care Provider Unavailable Reason for Visit Reason Comments Triage Encounter Details Date Type Department Care Team Description 10/27/2020 Clinical Communication Division of Zeinab Manuel Triage Internal Medicine in [place], [place] [address] [facility] [address] [place] [phone] [phone] Social History Tobacco Use Types Packs/Day Years [...] or relatives? How often do you attend evangelical or More than 4 times per year 08/15/2021 lutheran services? Do you belong to any clubs or Yes 08/15/2021 organizations such as evangelical groups, unions, fraternal or athletic groups, or [...] place to sleep or slept in a alf (including now)? Education Answer Date Recorded What is the highest level of school Bachelor's degree (e.g., BA, AB, 03/18/2019 you have completed or the highest BS) degree you have received? 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 - 11/02/2020 3:28 PM CDT GI CONSULTATIVE MEDICINE TRIAGE DECISION: Deny - Patient not here. REASON: Other: Patient already scheduled for nephrology consultation. She does not need a GIM appointment. Triage does not establish a relationship with the patient. For any questions, please contact the patient's primary provider or the GI DOD. [id number] Telephone Encounter - Jean Palu Mock - 10/27/2020 1:50 PM CDT Karyna Willis 1955 [phone] 65 years Gender: Female Who filled out ARF: Patient?? Request: I am diagnosed but want a second opinion or need help with treatment TOP THREE SYMPTOMS: MAIN SYMPTOM Kidney Cancer/CKD Description: Since R kidney resection 06/2018 I am under watchful care of Urology. My concern is lung, liver, brain metastases; CKD diagnosis in 02/2020 with decreasing kidney function attributed to ?. Liver cysts and hemangiomas have not been investigated. Duration: More than 12 months Previous Eval: Yes Institution: [facility] Have had: Procedures (surgeries, colonoscopies, biopsies, etc.), Images (X-Rays, CT scan, MRI scan, etc.), Blood or urine tests Diagnosis: Kidney Cancer; Chronic Kidney Disease Outcome: The kidney cancer was believed to have been successfully removed; the CKD and decreasing kidney function are an unknown. Expectations: That these and additional concerns will be considered as a whole rather than discrete problems. ADDITIONAL - 1 Melanoma - L facial lesion 2018 Description: Mohs surgery at [facility] 09/2018. My concern is recurrence of melanoma. Duration: More than 12 months Previous Eval: Yes Institution: [facility] Have had: Procedures (surgeries, colonoscopies, biopsies, etc.) Diagnosis: Lentigo Maligna. Mohs surgery completed 09/2018. Outcome: I am under watchful care of dermatology with 6 month returns. To date no further lesions. Expectations: It is being addressed. ADDITIONAL - 2 Reaction to Covid Vaccination 06/2020 Description: Immediately following vaccination with Pfizer Vaccine at [facility] in [place]: tingling of lips and mouth, altered sensorium, diarrhea at approximately ten minutes. Called [facility] on return home. Advised call 911 or go to ER. Went to [facility] for evaluation. Given Benedryl 2.5mg and advised to take Zyrtec subsequent three days. Seen at [facility] at one week post event for follow-up. Duration: Less than 6 months Previous Eval: Yes Institution: [facility] Have had: None of the above Diagnosis: Immunization Reaction Outcome: Advised to forgo second dose Expectations: Clear guidance as to vaccination for Covid-19. Explore possibility of being vaccinated with alternate vaccine. ADDITIONAL - 3 Liver lesions/ hemangiomas Description: I am concerned about liver function, especially in light of ongoing anemia that predates kidney cancer discovery and has not resolved following. I currently take a multivitamin containing iron. I have some ongoing edema of R leg and foot (which has improved with weight loss but not resolved). Duration: More than 12 months Previous Eval: Yes Institution: [facility] (when I saw Dr. Matthew, my chest CT for IZZY followup was remarkable and I was unable to address an additional issue) Have had: Images (X-Rays, CT scan, MRI scan, etc.) Diagnosis: Outcome: I wear compression socks. Expectations: To have a clear understanding of my liver health - especially as regards anemia and R lower extremity edema. ADDITIONAL - 4 Description: Duration: Previous Eval: Institution: Have had: Diagnosis: Outcome: Expectations: ADDITIONAL CONCERNS: ? CONDITIONS: Anxiety BOTHERED BY: Feeling nervous, anxious or on edge - Several days Not being able to control or stop worrying - Not at all Little interest or pleasure in doing things - Not at all Feeling down, depressed, or helpless - Not at all Willing to speak to a mental health professional - PAIN LONGER THAN 3 MONTHS: CARE PROVIDERS TO DATE: LOWEST PAIN LAST 7 DAYS (0 to 10): PAIN INTERFERENCE PAST 3 MONTHS (0 to 10): PAIN AREAS: FATIGUE A MAIN REASON FOR VISIT: FATIGUE/HOW LONG: PROBLEMS WITH SLEEP: SLEEP PROBLEMS LAST 2 WEEKS: SLEEP APNEA DIAGNOSIS: Willing to attend [facility] or [facility] appointments - DAILY MEDS: 2 OPIOIDS: No CURRENT DIALYSIS: No CURRENT HEALTH/PAST YEAR: Very Good CONFIDENCE: Agree NOT AVAILABLE: November 01 - November 09 ; December 12 - December 25 PHONE: [phone] documented in this encounter Plan of Treatment Not on filedocumented as of this encounter Visit Diagnoses Not on filedocumented in this encounter
--- OUTSIDE RECORDS SUMMARY | 2022-02-09 08:05 | XMS_ITS | Encounter Summary ---
:1955 Author Organization [facility] Address [address] [place] [address] Care Team Providers Name Role Phone Unavailable Primary Care Provider Unavailable Encounter Details Date Type Department Care Team Description 04/13/2020 Orders Only Department of Medical Muthusamy, Family History Genetic Genetics in [place], Soumya CohenB.S. Disorder (Primary Dx) [address] [place] [phone] Social History Tobacco Use Types Packs/Day Years [...] or relatives? How often do you attend spiritism or More than 4 times per year 08/15/2021 judaism services? Do you belong to any clubs or Yes 08/15/2021 organizations such as spiritism groups, unions, fraternal or athletic groups, or [...] place to sleep or slept in a longterm (including now)? Education Answer Date Recorded What is the highest level of school Bachelor's degree (e.g., BA, AB, 03/18/2019 you have completed or the highest BS) degree you have received? 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
--- OUTSIDE RECORDS SUMMARY | 2022-02-09 08:05 | XMS_ITS | Encounter Summary ---
:1955 Author Organization [facility] Address [address] [place] [address] Care Team Providers Name Role Phone Unavailable Primary Care Provider Unavailable Encounter Details Date Type Department Care Team Description 03/16/2021 Immunization Department of Family Medicine, [facility] in [place], [place] [address] [place] [address] Social History Tobacco Use Types Packs/Day [...] or relatives? How often do you attend voodoo or More than 4 times per year 08/15/2021 gnosticism services? 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
--- OUTSIDE RECORDS SUMMARY | 2022-02-09 08:05 | XMS_ITS | Encounter Summary ---
:1955 Author Organization [facility] Address [address] [place] [address] Care Team Providers Name Role Phone Unavailable Primary Care Provider Unavailable Encounter Details Date Type Department Care Team Description 04/05/2020 Orders Only Department of Medical Muthusamy, Noel, Genetics in [facility] [address] [facility] [address] [place] [phone] (Wo rk) Social History Tobacco Use Types [...] or relatives? How often do you attend sabianism or More than 4 times per year 08/15/2021 congregation services? 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
--- OUTSIDE RECORDS SUMMARY | 2022-02-09 08:05 | XMS_ITS | Encounter Summary ---
:1955 Author Organization [facility] Address [address] [place] [address] Care Team Providers Name Role Phone Unavailable Primary Care Provider Unavailable Encounter Details Date Type Department Care Team Description 10/26/2020 Orders Only Division of Hematology Tramaine Hope Def iciency Iron (Primary Dx); [place] Hyperlipidemia Mixed [place] [address] [facility] [address] [place] [phone] Social History Tobacco Use Types Packs/Day Years [...] or relatives? How often do you attend episcopal or More than 4 times per year 08/15/2021 anabaptism services? Do you belong to any clubs or Yes 08/15/2021 organizations such as episcopal groups, unions, fraternal or athletic groups, or [...] place to sleep or slept in a fpc (including now)? Education Answer Date Recorded What is the highest level of school Bachelor's degree (e.g., BA, AB, 03/18/2019 you have completed or the highest BS) degree you have received? 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 LAB BLOOD ADD-ON Performing Organization Address City/State/ZIP Code Phon e Number [facility] - [address] [place] [phone] [facility] [place] [address] Laboratories-[facility] 200 [facility] (ABNORMAL) Lipid Panel (01/06/2021 7:34 AM CDT) [...] Address City/State/ZIP Code Phon e Number [facility] - [address] [place], [place] [address] [facility] [place] [address] Laboratories-[facility] [address] documented in this encounter Visit Diagnoses Diagnosis Deficiency Iron - Primary Hyperlipidemia Mixed documented in this encounter
--- OUTSIDE RECORDS SUMMARY | 2022-02-09 08:05 | XMS_ITS | Encounter Summary ---
:1955 Author Organization [facility] Address [address] [place] [address] Care Team Providers Name Role Phone Unavailable Primary Care Provider Unavailable Encounter Details Date Type Department Care Team Description 01/06/2021 Hospital Encounter Department of Tramaine Hope Chroni c Kidney Laboratory Medicine MHeather Disease (CKD), Stage and Pathology, [address] [place] [address] 3 Unspecified (HCC) [facility] in [place], [place] [address] [place] [address] [place], [place] (Work) [phone] Social History Tobacco Use Types Packs/Day Years [...] or relatives? How often do you attend denominational or More than 4 times per year 08/15/2021 cheondoism services? Do you belong to any clubs or Yes 08/15/2021 organizations such as denominational groups, unions, fraternal or athletic groups, or [...] place to sleep or slept in a long term (including now)? Education Answer Date Recorded What is the highest level of school Bachelor's degree (e.g., BA, AB, 03/18/2019 you have completed or the highest BS) degree you have received? 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 MICROSCOPIC Routine 01/06/2021 7:44 AM Results f or this AUTOMATED CDT procedure are i n the results section. PH, U Routine 01/06/2021 7:44 AM Results f or this CDT procedure are i n the results section. OSMOLALITY, U Routine 01/06/2021 7:44 AM Results for this CDT procedure are i n the results section. URINALYSIS WITH Routine 01/06/2021 7:44 AM Chronic Kidney Resu lts for this MICROSCOPIC CDT Disease (CKD), Stage procedu re are in 3 Unspecified (HCC) the resu lts section. documented in this encounter Results pH, Urine (01/06/2021 7:44 AM CDT) athologist Signature pH, U 7.2 4.5 - 8.0 01/06/2021 8:58 DTL AM CDT Specimen Anatomical Collection Method Collection Time Receive d Time (Source) Location / / Volume Laterality Urine 01/06/2021 7:44 AM 8:17 CDT AM CDT Tramaine Hope M.D. LAB URINE ORDERABLES Performing Organization Address City/[facility]/ZIP Code Phon e Number [facility] - [address] [place], [place] [address] [facility] [place] [address] [facility] [address] [facility] Osmolality, Urine (01/06/2021 7:44 AM CDT) athologist Signature Osmolality, U 427 150 - 1150 01/06/2021 DTL mOsm/kg 8:58 AM CDT Specimen Anatomical Collection Method Collection Time Receive d Time (Source) Location / / Volume Laterality Urine 01/06/2021 7:44 AM 8:17 CDT AM CDT Tramaine Hope M.D. LAB URINE ORDERABLES Performing Organization Address City/State/ZIP Code Phon e Number [facility] - [address] [place], [place] [address] [facility] [place] [address] [facility] [address] Microscopic Automated (01/06/2021 7:44 AM CDT) athologist Signature Microscopy Normal 01/06/2021 8:55 DTL AM CDT Specimen Anatomical Collection Method Collection Time Receive d Time (Source) Location / / Volume Laterality Urine 01/06/2021 7:44 AM 8:17 CDT AM CDT Tramaine Hope M.D. LAB URINE ORDERABLES Performing Organization Address City/[facility]/ZIP Code Phon e Number [facility] - [address] [place], [place] [address] [facility] [place] [address] [facility] [address] Dipstick, Urine (01/06/2021 7:44 AM CDT) [facility] MCE-5 Development Method Time Signature Hemoglobin, QL Negative Negative 01/06/2021 DTL 8:55 AM CDT Leukocyte Negative Negative 01/06/2021 DTL Esterase, U 8:55 AM CDT Nitrite, U Negative Negative 01/06/2021 DTL 8:55 AM CDT Ketones, U Negative Negative 01/06/2021 DTL mg/dL 8:55 AM CDT Glucose, U Negative Negative 01/06/2021 DTL mg/dL 8:55 AM CDT Specimen Anatomical Collection Method Collection Time Receive d Time (Source) Location / / Volume Laterality Urine 01/06/2021 7:44 AM 8:17 CDT AM CDT Tramaine Hope M.D. LAB URINE ORDERABLES Performing Organization Address City/[facility] Code Phon e Number [facility] - [address] [place] [phone] [facility] [place] [address] Laboratories-[facility] 200 [facility] Urinalysis with Microscopic: Urine, Midstream (01/06/2021 7:44 AM CDT) [facility] Method Time Signature Source Urine, Urine, 01/06/2021 DTL Midstream 8:17 AM CDT Color, U Yellow 01/06/2021 DTL 8:17 AM CDT Clarity, U Clear 01/06/2021 DTL 8:17 AM CDT Protein, U 8 <26 mg/dL 01/06/2021 DTL 9:42 AM CDT Protein/Osmol 0.19 <0.42 01/06/2021 DTL ality ratio 9:42 AM CDT Predicted 24 146 mg/24 h 01/06/2021 DTL Hr Protein 9:42 AM CDT Predicted 36-592 mg/24 h 01/06/2021 DTL Range 9:42 AM CDT Specimen Anatomical Collection Method Collection Time Receive d Time (Source) Location / / Volume Laterality Urine (Urine, 01/06/2021 7:44 AM 01/07/20 8:17 Midstream) CDT AM CDT Tramaine Hope M.D. LAB URINE ORDERABLES Performing Organization Address City/State/ZIP Code Phon e Number [facility] - [address] [place], [place] [address] [facility] [place] [address] Laboratories[facility] [address] documented in this encounter Visit Diagnoses Diagnosis Chronic Kidney Disease (CKD), Stage 3 Un specified (HCC) documented in this encounter
--- OUTSIDE RECORDS SUMMARY | 2022-02-09 08:05 | XMS_ITS | Encounter Summary ---
:1955 Author Organization [facility] Address [address] [place] [address] Care Team Providers Name Role Phone Unavailable Primary Care Provider Unavailable Encounter Details Date Type Department Care Team Description 07/28/2021 Clinical Communication Division of Nephrology Cleopatra Hope, and Hypertension in [place], [place] [address] [facility] [address] [place] [phone] Social History Tobacco Use Types Packs/Day Years [...] or relatives? How often do you attend uatsdin or More than 4 times per year 08/15/2021 jew services? 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
--- OUTSIDE RECORDS SUMMARY | 2022-02-09 08:05 | XMS_ITS | Encounter Summary ---
:1955 Author Organization [facility] Address [address] [place] [address] Care Team Providers Name Role Phone Unavailable Primary Care Provider Unavailable Encounter Details Date Type Department Care Team Description 04/16/2020 Lab RST RO Noel Lipscomb, Family History Genetic [address] [facility] [place] [address] [address] [place] [address] (Wo rk) Social History Tobacco Use Types [...] or relatives? How often do you attend cheondoism or More than 4 times per year 08/15/2021 orthodoxy services? Do you belong to any clubs or Yes 08/15/2021 organizations such as cheondoism groups, unions, fraternal or athletic groups, or [...] place to sleep or slept in a mcfp (including now)? Education Answer Date Recorded What is the highest level of school Bachelor's degree (e.g., BA, AB, 03/18/2019 you have completed or the highest BS) degree you have received? 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 - 04/30/2020 12:06 PM ACADEMIC SERVICES COORDINATOR Family variant testing of GALT gene is negative. I discussed the results with the patient over a telephone conversation. EMIC SERVICES COORDINATOR documented in this encounter Plan of Treatment Not on filedocumented as of this encounter Procedures Procedure Name Priority Date/Time Associated Comments Diagnosis NGDATAC. [facility] Routine 03/22/2020 2:48 PM Results for [employer] ACADEMIC SERVICES COORDINATOR procedure are i n the results section. documented in this encounter Results [employer] (03/22/2020 2:48 PM ACADEMIC SERVICES COORDINATOR) P athologist Signature Test Name Family 04/19/2020 INVC Variant 3:36 PM ACADEMIC SERVICES COORDINATOR Testing Result SEE COMMENT 04/29/2020 INVC 2:38 PM ACADEMIC SERVICES COORDINATOR Comment: For final report, select Lab-Send Out L ab Results hyperlink below. Specimen Anatomical Collection Method Collection Time Receive d Time (Source) Location / / Volume Laterality Varies 03/22/2020 2:48 PM 0 3:35 ACADEMIC SERVICES COORDINATOR PM ACADEMIC SERVICES COORDINATOR Narrative This result has an attachment that is no t available. Noel Vernon LAB MISC ORDERABLES Performing Organization Address City/State/ZIP Code Phon e Number [facility] [address] [place] [address] [facility] [address] [address] documented in this encounter Visit Diagnoses Diagnosis Family History Genetic Disorder documented in this encounter
--- OUTSIDE RECORDS SUMMARY | 2022-02-09 08:05 | XMS_ITS | Encounter Summary ---
:1955 Author Organization [facility] Address [address] [place] [address] Care Team Providers Name Role Phone Unavailable Primary Care Provider Unavailable Reason for Referral Outpatient (Routine) - Closed Specialty Diagnoses / Procedures Referred By Contact Refer red To Contact Nutrition Diagnoses Chronic Kidney Disease (CKD), Stage 3a Glomerular Filtration Rate (GFR) 45 To 59 (HCC) Rst End [facility] [address] [place] [phone] Referral ID Status Reason Start Date Expiration Date Visits Requ ested Visits Authorized [id number] Closed 02/25/2021 02/25/2022 1 1 Scheduling Instructions This appointment should ideally be sched uled AFTER the Stonemason Apprentice Consults, but must at least be scheduled 48 hours afte r 24-hour urine collection is complete. Virtual visit is acceptable for this titian visit. Reason for Visit Reason Comments Other Cons PCV Outpatient (Routine) - Closed Specialty Diagnoses / Procedures Referred By Contact Refer red To Contact Endocrinology Diagnoses Chronic Kidney Disease (CKD), Stage 3a Glomerular Filtration Rate (GFR) 45 To 59 (HCC) Amilcar Lea [place] M.D. [address] [place] [phone] Referral ID Status Reason Start Date Expiration Date Visits Requ ested Visits Authorized [id number] Closed 01/06/2021 01/06/2022 1 1 Encounter Details Date Type Department Care Team Description 02/25/2021 Comprehensive Visit Division of Michael Lea M.D. Chronic Kidney Endocrinology in Selvin Monreal M.D. [address] [place] [address] Disease (CKD), [place], [place] Stage 3a Glomerular [address] [facility] Filtration Rate [place], [place] (GFR) 45 To 59 [phone] (HCC) (Primary Dx) [phone] Social History Tobacco Use Types Packs/Day Years [...] or relatives? How often do you attend rastafarian or More than 4 times per year 08/15/2021 voodoo services? Do you belong to any clubs or Yes 08/15/2021 organizations such as rastafarian groups, unions, fraternal or athletic groups, or [...] place to sleep or slept in a [facility] (including now)? Education Answer Date Recorded What is the highest level of school Bachelor's degree (e.g., BA, AB, 03/18/2019 you have completed or the highest BS) degree you have received? Sex Assigned at Date Recorded Female 05/10/2018 8:56 AM DIE TRIPPER documented as of this encounter Last Filed Vital Signs Vital Sign Reading Time Taken Comments Blood Pressure 146/80 02/25/2021 1:33 PM CDT Pulse 61 02/25/2021 1:33 PM CDT Temperature - - Respiratory Rate - - Oxygen Saturation - - Inhaled Oxygen Concentration - - Weight 59 kg (130 lb 1.1 oz) 02/25/2021 1:33 PM CDT Height 157.5 cm (5' 2.01) 02/25/2021 1:33 PM CDT Body Mass Index 23.78 02/25/2021 1:33 PM CDT documented in this encounter Patient Instructions Patient InstructionsStSelvin bettencourt M.D. - 02/25/2021 1:30 PM CDT 1) We will set up an appointment with the renal dieticians to discuss diet 2) Aim for 800-1000 mg calcium per day. Use the sources of calcium booklet as a guide. We can always supplement with medications if needed 3) Please start taking vitamin d3 supplements. We will add a vitamin d level to your next blood draw 4) okay to stop iron, Turmeric, and apple cider vinegar at this time 5) Cholesterol - do not need to start a statin right now. Consider incorporating plant stanols and sterols to your diet (see Alternative Therapies for Managing or Lowering Cholesterol) documented in this encounter Consult Notes Selvin Monreal M.D. - 02/25/2021 1:30 PM CDT [facility] Endocrinology, Diabetes, Metabolism and Nutrition Metabolic Clinic Date of Visit: 02/25/2021 Supervising marketing database consultant: Dr. Pineda Chief Complaint: Other (Cons PCV) History of Present Illness Karyna Willis is a 65 y.o. female who presents for evaluation of recent bone density scan and hyperlipidemia. Medical comorbidities are notable for CKD stage IIIA, renal cell carcinoma status post right-sided nephrectomy, hypertension not currently on medication (stopped lisinopril 2.5 mg on 02/17 due to dizzy spells), previous vitamin-D deficiency, hyperlipidemia. Most recent bone density scan performed 07/21/2020 was notable for the following findings: Lumbar spine T-score-0.4, right femoral neck T-score -0.6, total hip T-score 0.0. Patient is concerned as thisis approximately a 17% decline from her previous scan in 2012. She denies recent history of fracture. She is postmenopausal and underwent total hysterectomy in 2004, ovaries were retained. Her mother is 91 years old and has osteopenia but has never had hip fracture. She denies chronic steroid use as well as systemic inflammatory conditions. Denies alcohol as well as tobacco use. States that she exercises vigorously and vastly exceeds the 150 minutes of moderate aerobic exercise recommended. In termsof diet, she has been eating largely a plant based diet in an attempt to control her hyperlipidemia.States that this has been somewhat challenging given her history of chronic kidney disease as she must control potassium and phosphorus levels. As a result, she is not able to take in calcium via tradit ional sources such as dairy, but does state that she eats plenty of leafy green vegetables includingspinach and broccoli. Interested in vitamin-D supplementation. She is interested in this time it meeting with a renal dietitian for further guidance in terms of diet. In terms of hyperlipidemia, she had a cholesterol panel performed in 12/2020 notable for total cholesterol of 214, HDL of 48, and LDL of 143. This slightly is improved from previous lipid panel in 07/2020 notable for total cholesterol of 225, LDL of 146, HDL of 52. As mentioned previously, patient hasbeen quite diligent about eating a plant based diet and engaging in regular exercise. She has maintained a daily log of her diet and states that she has lost approximately 40 lb intentionally over the last year as result of diet and exercise. She is reticent to start a statin at this time but is wondering if this is necessary. She denies a history of clinical ASCVD including ACS/ID, angina, decreasedexercise tolerance, previous coronary revascularization, ischemic stroke, TIA, peripheral artery disease. She carries no diagnosis of diabetes or impaired fasting glucose. In terms of family history, her father suddenly from unknown causes at age 46. She has a brother diagnosed with hyperlipidemia managed with lifestyle modifications. Lastly, Mrs. willis has questions about iron supplementation as well as herbal supplements including turmeric and apple cider vinegar as methods of controlling osteoarthritis and cholesterol, respectively. COMORBIDITIES - Hypertension: Not currently treated pharmacologically. Previously on lisinopril 2.5 mg BP Readings from Last 1 Encounters: 02/25/21 146/80 - Weight status: BMI Readings from Last 1 Encounters: 02/25/21 23.78 kg/m?? Lab Results Component Value Date CREATININE 1.19 (H) 01/06/2021 ALBCREARATIO <24 06/30/2020 CHOL 214 (H) 01/06/2021 TRIG 115 01/06/2021 HDL 48 (L) 01/06/2021 LDLCALC 143 (H) 01/06/2021 ALT 20 01/06/2021 The following portions of the patient's history were also reviewed and updated as appropriate: allergies, current medications, family history, medical history, social history, surgical history and problem list. Current Outpatient Medications Medication Sig Dispense Refill ??? calcium-vitamin D3-vitamin K (Viactiv) 650 mg-12.5 mcg (500 Unit)-40 mcg tablet,chewable per chewable tablet Chew 1 tablet. 2 times weekly ??? lisinopriL (PRINIVIL,ZESTRIL) 2.5 mg tablet Take 2.5 mg by mouth daily. ??? MULTIVITAMIN ORAL Take by mouth. 2 gummies daily Current Facility-Administered Medications Medication Dose Route Frequency Provider Last Rate Last Admin ??? htdhcsynvae-hcckciqdt-EIXFXLLhvzx 0.25%-1%-1:200,000 injection 2-50 mL 2-50 mL infiltration PRN Abelardo Heart M.D. 8 mL at 10/10/18 1520 ??? lidocaine-EPINEPHrine 1%-1:200,000 injection 2-50 mL (XYLOCAINE W/EPI) 2-50 mL infiltration PRAbelardo Cheng M.D. 16 mL at 10/10/18 1520 Social History Tobacco Use ??? Smoking status: Never Smoker ??? Smokeless tobacco: Never Used ??? Tobacco comment: passive smoke as a child, teen Substance Use Topics ??? Alcohol use: Not Currently Alcohol/week: 0.0 standard drinks Comment: not since 06/2017 Past Medical History: Diagnosis Date ??? Anemia [...] Melanoma Skin (HCC) 09/05/2018 ??? Polyp Colon 2014 ??? Post Operative Nausea/Vomiting ??? Pulmonary Nodule Computed Tomography Indeterminate 04/2018 Past Surgical History: Procedure Laterality Date ??? HERNIA REPAIR ??? HYSTERECTOMY 2005 spinal, some awarness during procedure ??? INGUINAL HERNIA REPAIR Left as an infant. ??? NEPHRECTOMY - PARTIAL Right 07/02/2018 Procedure: Nephrectomy, Partial.; Surgeon: Edy Silverio M.D.; Location: [facility] OR Physical Examination Constitutional Appearance: Normal appearance. Eyes Pupils: Pupils are equal, round, and reactive to light. Neck Thyroid: No thyroid mass, thyromegaly or thyroid tenderness. Cardiovascular Rate and Rhythm: Normal rate and regular rhythm. Pulses: Normal pulses. Heart sounds: Normal heart sounds. No murmur heard. No friction rub. No gallop. Pulmonary Effort: Pulmonary effort is normal. No respiratory distress. Breath sounds: Normal breath sounds. No stridor. No wheezing, rhonchi or rales. Musculoskeletal Cervical back: Normal range of motion and neck supple. Skin General: Skin is warm and dry. Neurological General: No focal deficit present. Mental Status: She is alert and oriented to person, place, and time. Psychiatric Mood and Affect: Mood normal. Impression/Report/Plan In summary, Mrs. willis is a 65-year-old female with history of CKD stage IIIA and hyperlipidemia presenting for further management of declining bone density and hyperlipidemia. From standpoint of bone density, as discussed with the patient, it is relatively expected that she will gradually lose bone density at this point in her life being postmenopausal. The decrease in density she has experienced is not outside the realm of normal, and fortunately she still has bone densitywith in normal limits and does not meet criteria for osteopenia. We did discuss methods for slowing ongoing bone density loss including continuing regular exercise, as well as ensuring adequate vitamin-D and calcium intake. Her goal daily calcium intake with history of hscp-pr-ayrqsjsa chronic kidney disease is 800-1000 mg per day. She was provided with literature discussing the calcium contents of various foods and she was asked to track her calcium intake to ensure adequate repletion. If she is not able to meet this goal of 800-1000 mg per day, we may consider supplementation with calcium citrate. In terms of vitamin-D, I think it would be reasonable to start supplementation with 1000 IU vitamind3 daily. Will plan to redraw a 25 hydroxy vitamin-D level the next time she has a lab draw. I do think that she would benefit from a visit with the Nephrology dietitian team as she has several questions about phosphorus and potassium intake. In terms of other supplements, she can discontinue iron, apple cider vinegar, and turmeric at this time as she has a normal ferritin level and there is incomplete evidence as to the efficacy of these other agents. In terms of hyperlipidemia, she does have a 10 year ASCVD risk of 12.7%, which puts her at intermediate risk. As we discussed, it is an individual decision as to whether not she would like to start a moderate intensity statin. Patient prefers to continue lifestyle management with plant based diet and exercise. We did discuss the evidence of incorporating plant sterols in her diet well and the benefitthis can have in lowering LDL. Will plan to defer statins at this time and continue to monitor. I reviewed the available laboratory, radiographic and other test findings pertinent to this visit and discussed these results with the patient. I discussed the following treatment plan with the patient: #1 Chronic Kidney Disease (CKD), Stage 3a Glomerular Filtration Rate (GFR) 45 To 59 (HCC) #2 Decreased bone density -- patient to see nephology land leveler team -- Maintain calcium intake of 800-1000 mg daily, consider calcium citrate supplementation if necessary -- vitamin d3 1000 IU daily -- 25-hydroxy vitamin d level at next blood draw -- may d/c iron supplements at this time -- d/c Turmeric and apple cider vinegar #2 Hyperlipidemia -- continue plant based diet -- continue regular aerobic exercise as tolerated, aiming for >150 minutes per week -- incorporate plant sterols and stanols in diet - consider supplement Electronically signed by: Selvin Monreal M.D. 02/25/21 5:19 PM CDT Juliana Pineda M.B., Ch.B. - 02/25/2021 1:30 PM CDT Supervisory for Dr. Monreal. I have reviewed his documentation and I agree with his recommendations. The patient is a 65-year-old lady who presents for evaluation of bone health and hyperlipidemia. Sheis postmenopausal but otherwise has no risk factors for low bone mass. Her rate of decline of bone mass over the years is consistent with age-related bone loss. She has an excellent exercise program which is beneficial for bone health. We have referred her to the renal dietitian as she is finding it difficult to balance different dietary restrictions while obtaining adequate calcium and vitamin D through dietary means. From the perspective of primary prevention of atherosclerotic cardiovascular disease, the patient isat intermediate risk based on her ASCVD risk score. However she is already following a plant based diet and has lost weight which will no doubt reduce her risk further. She is interested in plant stanols and sterols which could be a good option here for cholesterol-lowering. documented in this encounter Plan of Treatment Scheduled Referrals Name Type Priority Associated Order Schedule Diagnoses Nutrition - Outpatient Referral Routine Chronic Kidney Expect ed: Nephrology medical Disease (CKD), 021 nutrition therapy Stage 3a Glomerular (Ap proximate), consult (clinic) Filtration Rate Expires: (GFR) 45 To 59 02/26/2024 (HCC) documented as of this encounter Results 25-Hydroxyvitamin D2 and D3 (08/18/2021 8:01 AM CDT) P athologist Signature 25-Hydroxy D2 <4.0 ng/mL 08/19/2021 [...] and its performa nce characteristics determined by [facility] in a manner consistent with CLIA [...] Organization Address City/State/ZIP Code Phon e Number [facility] [address] [place] [address] SUPPORT CENTER [facility] [place] [address] Laboratory Medicine and Pathology [address] [place] documented in this encounter Visit Diagnoses Diagnosis Chronic Kidney Disease (CKD), Stage 3a G lomerular Filtration Rate (GFR) 45 To 59 (HCC) - Primary documented in this encounter
--- OUTSIDE RECORDS SUMMARY | 2022-02-09 08:05 | XMS_ITS | Encounter Summary ---
:1955 Author Organization [facility] Address [address] [place] [address] Care Team Providers Name Role Phone Unavailable Primary Care Provider Unavailable Encounter Details Date Type Department Care Team Description 04/07/2020 Clinical Communication Department of Urology Edy Silverio in Rizwana López M.D. [place] [address] [facility] [address] [place] [phone] Social History Tobacco Use Types Packs/Day Years [...] place to sleep or slept in a [place] (including now)? Education Answer Date Recorded What is the highest level of school Bachelor's degree (e.g., BA, AB, 03/18/2019 you have completed or the highest BS) degree you have received? Sex Assigned at Date Recorded Female 05/10/2018 8:56 AM MIS DIRECTOR documented as of this encounter Miscellaneous Notes Telephone Encounter - Alicia Ross R.N. - 04/07/2020 5:19 PM CST SUBJECTIVE CHIEF COMPLAINT / REASON FOR CALL Need for IV fluids at time of CT scan PLAN The following information was provided: Mrs. Willis is scheduled for a CT scan for her June visit. She called requesting IV fluids to be given at the time of her CT scan per her local neuropsychology division chief. Mrs. Willis was instructed to drink an increased amount of fluid two days prior to her CT, clear liquids prior to her labs and CT scan and to continue to push fluids after her scan. By doing this, rarely is IV fluids needed per Dr. Silverio. Mrs. Willis was asked to discuss her need for additional IV fluids with the radiology staff at her appointment as well. Information/Education: patient/caller able to teach back The following references were used: none DIRECTOR Telephone Encounter - Aj Preston - 04/07/2020 3:05 PM CST Got a call from Karyna and she wanted to let us know that her Medical Practice Manager wrote in her february office visit that she should have IV Hydration prior to receiving contrast. Does this need to be a separate order? Can the team order this if so? Please advise. Thank you very much! DIRECTOR documented in this encounter Plan of Treatment Not on filedocumented as of this encounter Visit Diagnoses Not on filedocumented in this encounter
--- OUTSIDE RECORDS SUMMARY | 2022-02-09 08:05 | XMS_ITS | Encounter Summary ---
:1955 Author Organization [facility] Address [address] [place] [address] Care Team Providers Name Role Phone Unavailable Primary Care Provider Unavailable Encounter Details Date Type Department Care Team Description 06/30/2020 Hospital Encounter Department of Lois Dugan Cancer Renal Cell Laboratory Medicine Brigido Rowe Carcinom a Personal and Pathology, History [facility], in [place], [place] [address] [place] [address] Social History Tobacco Use Types Packs/Day Years [...] or relatives? How often do you attend temple or More than 4 times per year 08/15/2021 faith services? Do you belong to any clubs or Yes 08/15/2021 organizations such as temple groups, unions, fraternal or athletic groups, or [...] place to sleep or slept in a [facility] (including now)? Education Answer Date Recorded What is the highest level of school Bachelor's degree (e.g., BA, AB, 03/18/2019 you have completed or the highest BS) degree you have received? Sex Assigned at Date Recorded Female 05/10/2018 8:56 AM GROUNDSKEEPER documented as of this encounter Medications at [...] Name Priority Date/Time Associated Diagnosis Comme nts RENAL FUNCTION Routine 06/30/2020 7:25 AM Cancer Renal Cell Re sults for this PANEL, S GROUNDSKEEPER Carcinoma Personal procedure are in History the results section. CBC WITH Routine 06/30/2020 7:25 AM Cancer Renal Cell Resu lts for this DIFFERENTIAL, B GROUNDSKEEPER Carcinoma Personal proced ure are in History the results section. URIC ACID, S/P Routine 06/30/2020 7:25 AM Cancer Renal Cell Re sults for this GROUNDSKEEPER Carcinoma Personal procedure are in History the results section. documented in this encounter Results Uric Acid (06/30/2020 7:25 AM GROUNDSKEEPER) P athologist Signature Uric Acid, S 4.5 2.7 - 6.1 06/30/2020 DTL mg/dL 8:29 AM GROUNDSKEEPER Specimen Anatomical Collection Method Collection Time Receive d Time (Source) Location / / Volume Laterality Blood (Blood, 06/30/2020 7:25 AM 06/30/19 7:49 Venous) GROUNDSKEEPER AM GROUNDSKEEPER Lois Dugan R.N. LAB BLOOD ADD-ON Performing Organization Address City/State/ZIP Code Phon e Number [facility] - [address] [place] [phone] [facility] [place] [address] [facility] 200 [facility] CBC with Differential, Blood (06/30/2020 7:25 AM GROUNDSKEEPER) P athologist Signature Hemoglobin 13.7 11.6 - 06/30/2020 DTL 15.0 g/dL 8:01 AM GROUNDSKEEPER Hematocrit 42.3 35.5 - 06/30/2020 DTL 44.9 % 8:01 AM GROUNDSKEEPER Erythrocytes 4.74 3.92 - 06/30/2020 DTL 5.13 8:01 AM GROUNDSKEEPER x10(12)/L MCV 89.2 78.2 - 06/30/2020 DTL 97.9 fL 8:01 AM GROUNDSKEEPER RBC Distrib Width 12.9 12.2 - 06/30/2020 DTL 16.1 % 8:01 AM GROUNDSKEEPER Platelet Count 187 157 - 371 06/30/2020 DTL x10(9)/L 8:01 AM GROUNDSKEEPER Leukocytes 4.7 3.4 - 9.6 06/30/2020 DTL x10(9)/L 8:01 AM GROUNDSKEEPER Neutrophils 2.76 1.56 - 06/30/2020 DTL 6.45 8:01 AM GROUNDSKEEPER x10(9)/L Lymphocytes 1.26 0.95 - 06/30/2020 DTL 3.07 8:01 AM GROUNDSKEEPER x10(9)/L Monocytes 0.41 0.26 - 06/30/2020 DTL 0.81 8:01 AM GROUNDSKEEPER x10(9)/L Eosinophils 0.22 0.03 - 06/30/2020 DTL 0.48 8:01 AM GROUNDSKEEPER x10(9)/L Basophils 0.05 0.01 - 06/30/2020 DTL 0.08 8:01 AM GROUNDSKEEPER x10(9)/L Specimen Anatomical Collection Method Collection Time Receive d Time (Source) Location / / Volume Laterality Blood (Blood, 06/30/2020 7:25 AM 06/30/19 21 7:49 Venous) GROUNDSKEEPER AM GROUNDSKEEPER Lois A Heney R.N. LAB BLOOD ADD-ON Performing Organization Address City/State/ZIP Code Phon e Number [facility] - [address] [place], [place] [address] [facility] [place] [address] [facility] [address] [facility] (ABNORMAL) Renal Function Panel (06/30/2020 7:25 AM GROUNDSKEEPER) Analysis Performed At Patho logist Time Signature Potassium, S 3.7 3.6 - 5.2 06/30/2020 DTL mmol/L 8:29 AM GROUNDSKEEPER Sodium, S 143 135 - 145 06/30/2020 DTL mmol/L 8:29 AM GROUNDSKEEPER Chloride, S 106 98 - 107 06/30/2020 DTL mmol/L 8:29 AM GROUNDSKEEPER Bicarbonate, S 28 22 - 29 06/30/2020 DTL mmol/L 8:29 AM GROUNDSKEEPER Anion Gap 9 7 - 15 06/30/2020 DTL 8:29 AM GROUNDSKEEPER BUN (Blood Urea 11 6 - 21 06/30/2020 DTL Nitrogen), S mg/dL 8:29 AM GROUNDSKEEPER Creatinine 1.22 (H) 0.59 - 06/30/2020 DTL 1.04 mg/dL 8:29 AM GROUNDSKEEPER eGFR-Non 46 (L) >=60 06/30/2020 DTL Black/ mL/min/BSA 8:29 AM GROUNDSKEEPER Thai Comment: ----ADDITIONAL INFORMATION---- Estimated GFR calculated using the 2009 CKD_EPI creatinine equation. eGFR-Black/ 53 (L) >=60 mL/min/BSA 2020 8:29 AM GROUNDSKEEPER DTL Comment: ----ADDITIONAL INFORMATION---- Estimated GFR calculated using the 2009 CKD_EPI creatinine equation. Calcium, Total, S 9.4 8.8 - 10.2 mg/dL 06/30/2020 8:29 AM GROUNDSKEEPER DTL Glucose, S 67 (L) 70 - 140 mg/dL 06/30/2020 8:29 AM GROUNDSKEEPER D TL Albumin, S 4.4 3.5 - 5.0 g/dL 06/30/2020 8:29 AM GROUNDSKEEPER D TL Phosphorus (Inorganic), S 3.8 2.5 - 4.5 mg/dL 06/30/19 8:29 AM GROUNDSKEEPER DTL Specimen Anatomical Collection Method Collection Time Receive d Time (Source) Location / / Volume Laterality Blood (Blood, 06/30/2020 7:25 AM 06/30/19 7:49 Venous) GROUNDSKEEPER AM GROUNDSKEEPER Lois Dugan R.N. LAB BLOOD ADD-ON Performing Organization Address City/State/[facility] Code Phon e Number [facility] - [address] [place], [place] [address] [facility] [place] [address] [facility] [address] documented in this encounter Visit Diagnoses Diagnosis Cancer Renal Cell Carcinoma Personal His tory documented in this encounter
--- OUTSIDE RECORDS SUMMARY | 2022-02-09 08:05 | XMS_ITS | Encounter Summary ---
:1955 Author Organization [facility] Address [address] [place] [address] Care Team Providers Name Role Phone Unavailable Primary Care Provider Unavailable Reason for Referral MRI/CAT/PET Scan (Routine) - Closed Specialty Diagnoses / Procedures Referred By Contact Refer red To Contact Radiology Diagnoses Carcinoma Renal Cell Right (HCC) Edy Silverio M.D. [facility] Procedures CT Abdomen Pelvis with IV Contrast CT Abdomen Pelvis without and with IV Contrast [address] [place] [address] Referral ID Status Reason Start Date Expiration Date Visits Requ ested Visits Authorized [id number] Closed 06/30/2020 08/18/2021 1 1 HOLE BORER Outpatient (Routine) - Closed Specialty Diagnoses / Procedures Referred By Contact Elizabeth red To Contact Urology Edy Silverio M.D. [facility] [address] [place] [phone] Referral ID Status Reason Start Date Expiration Date Visits Requ ested Visits Authorized [id number] Closed 06/30/2020 06/30/2021 1 1 HOLE BORER Reason for Visit Outpatient (Routine) - Closed Specialty Diagnoses / Procedures Referred By Contact Refer red To Contact Urology Lois Dugan R.N. [facility] Referral ID Status Reason Start Date Expiration Date Visits Requ ested Visits Authorized [id number] Closed 01/07/2020 01/06/2021 1 1 Encounter Details Date Type Department Care Team Description 06/30/2020 Office Visit Department of Urology Edy Silverio Carcinoma Renal Cell in [place], [place] Right (HCC) (Primary [place] [address] [facility] Dx) [address] [place] [phone] Social History Tobacco Use Types Packs/Day Years [...] or relatives? How often do you attend synagogue or More than 4 times per year 08/15/2021 evangelical services? Do you belong to any clubs or Yes 08/15/2021 organizations such as synagogue groups, unions, fraternal or athletic groups, or [...] at Date Recorded Female 05/10/2018 8:56 AM BUNGHOLE BORER documented as of this encounter Progress Notes Edy Silverio M.D. - 06/30/2020 1:30 PM CST REASON FOR VISIT Renal cell carcinoma recheck. HISTORY OF PRESENT ILLNESS Ms. Willis is a pleasant 65 y.o. 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 Patient had previously noted pulmonary nodularity (03/19/19), and was seen by pulmonary medicine who recommended follow-up CT in 1 year. Ms. Willis was last seen in Urology on 01/07/2020 and was found to have no evidence of disease but nonspecific enteritis was seen. Diarrhea occurred the following day lasting one week. Her creatinine continued to decline and was found to have an eGFR of 42 at her last visit. She was seen by Nephrology on 02/25/2020 and was asked to return in 1 year for follow-up. Genetic evaluation has been performed on 03/2020. 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 Pathological variants in MSH3 are associated with autosomal recessive MSH3 associated polyposis and increased risk for other cancers. At most, she was told she could be a carrier. Repeat testing in a couple of years was recommended when advances in technology and literature advances may be available. Ms. Willis reported a family variant of galactosemia and was asked to send details to the department of Clinical Genomics. Mrs. Willis was seen with her today. She denies pain. Since her visit in Nephrology, she has lost 20 pounds intentionally and has held her blood pressure medication. She walks daily. Mrs. Willis denies constitutional and voiding issues. PAST MEDICAL/SURGICAL HISTORY MEDICAL Past Medical History: Diagnosis Date ??? Anemia [...] Right kidney ??? Melanoma Face (HCC) ??? Polyp Colon 2013 ??? Post Operative Nausea/Vomiting ??? Pulmonary Nodule Computed Tomography Indeterminate 04/2018 SURGICAL Past Surgical History: Procedure Laterality Date ??? HERNIA REPAIR ??? HYSTERECTOMY 2005 spinal, some awarness during procedure ??? INGUINAL HERNIA REPAIR Left as an . ??? NEPHRECTOMY - PARTIAL Right 07/02/2018 Procedure: Nephrectomy, Partial.; Surgeon: Edy Silverio M.D.; Location: [facility] OR MEDICATIONS ALLERGIES Allergies Allergen Reactions ??? Pantoprazole Anaphylaxis and Other (see comments) swelling to uvula, and rash in groin ??? Hydrochlorothiazide Angioedema Not clearly related but possible. ??? Rabeprazole Rash Groin area REVIEW OF SYSTEMS Constitutional: Positive for weight loss of more than 10 pounds. Neurological: Positive for light-headedness. The following systems were negative: Skin, Eyes, ENT, CV, Respiratory, GI, , Hematologic, Musculoskeletal, Psych OBJECTIVE LABS Recent Results (from the past 72 hour(s)) Renal Function Panel Collection Time: 06/30/20 7:25 AM Result Value Potassium, S 3.7 Sodium, S 143 Chloride, S 106 Bicarbonate, S 28 Anion Gap 9 Bld Urea Nitrog(BUN), S 11 Creatinine, S 1.22 (H) eGFR-Non Black 46 (L) eGFR-Black 53 (L) Calcium, Total, S 9.4 Glucose, S 67 (L) Albumin, S 4.4 Phosphorus (Inorganic), S 3.8 CBC with Differential, Blood Collection Time: 06/30/20 7:25 AM Result Value Hemoglobin 13.7 Hematocrit 42.3 Erythrocytes 4.74 MCV 89.2 RBC Distrib Width 12.9 Platelet Count 187 Leukocytes 4.7 Neutrophils 2.76 Lymphocytes 1.26 Monocytes 0.41 Eosinophils 0.22 Basophils 0.05 Uric Acid Collection Time: 06/30/20 7:25 AM Result Value Uric Acid, S 4.5 Urinalysis with Microscopic: Urine, Voided Collection Time: 06/30/20 8:01 AM Result Value Source Void Appearance Normal Osmolality, U 82 (L) pH, U 6.1 Glucose <2 Protein <4 Protein/Osmolality <0.49 (H) Predicted 24 Hr Protein <349 Predicted Range <1411 Hemoglobin, QL Negative Albumin, Random, Urine Collection Time: 06/30/20 8:01 AM Result Value Albumin, Random, U <5.0 Creatinine 21 Albumin/Creatinine Ratio <24 Protein/Creatinine Ratio, Random, Urine Collection Time: 06/30/20 8:01 AM Result Value Protein, Total, Random, U <4 Creatinine Concentration 21 Protein/Creatinine Ratio <0.19 (H) Microscopic Automated Collection Time: 06/30/20 8:01 AM Result Value Microscopy Normal Creatinine, POCT Collection Time: 06/30/20 8:27 AM Result Value eGFR-Black, POCT 60 eGFR Non-Black, POCT 52 (L) Creatinine, POCT Collection Time: 06/30/20 8:27 AM Result Value Creatinine, POCT, B 1.1 (H) IMAGING AND TESTS Ct Chest With Iv Contrast Result Date: 06/30/2020 Impression: Stable chest CT . Ct Abdomen Pelvis With Iv Contrast Result Date: 06/30/2020 Impression: No evidence of recurrent or metastatic disease in the abdomen and pelvis. IMPRESSION/REPORT/PLAN #1 Status post right partial nephrectomy for chromophobe renal cell carcinoma, pathologic stage T2a It was my pleasure to see Ms. Willis in clinic today for follow-up of her renal cell carcinoma. I waspleased to report to her that there is no evidence of disease based on CT of the chest abdomen and pelvis. We discussed the fact that chromophobe varieties of renal cell carcinoma typically behave in an indolent fashion relative to other types of renal cell carcinoma. We discussed the fact that her pulmonary micro nodules have been stable for more than a year. Therefore we agreed that the most appropriate follow-up would be to see her back in approximately one year's time with a chest x-ray, CT of the abdomen and pelvis, blood tests and urine tests. She had no further questions at the conclusion ofthe discussion. HOLE BORER documented in this encounter Miscellaneous Notes Addendum Note - Lucille Ross, R.N. - 06/30/2020 1:30 PM BUNGHOLE BORER Addended by: LUCILLE ROSS on: 06/30/2020 05:11 PM Modules accepted: Orders HOLE BORER documented in this encounter Plan of Treatment Scheduled Referrals Name Type Priority Associated Diagnoses [facility] Outpatient Referral Routine Expect ed: visit (clinic) 08/01/2021 (Approximate), Expires: 06/30/2023 documented as of this encounter Results CT Abdomen Pelvis with [...] Hysterectomy. This examination was performed in conjun ction with a CT of the chest, which [...] Hysterectomy. This examination was performed in conjun ction with a CT of the chest, which will be reported separately. IMPRESSION: No evidence of recurrent or metastatic d isease in the abdomen or pelvis. Edy Silverio M.D. IMJos[facility] CT PROCEDURES (ABNORMAL) Basic Metabolic Panel (08/18/2021 8:01 AM [...] 08/18/2021 DTL Black/ mL/min/BSA 9:02 AM CDT Stateless Comment: ----ADDITIONAL INFORMATION---- Estimated GFR calculated using [...] City/State/ZIP Code Phon e Number [facility] - [address] [place], [place] [address] [place] [address] [facility] [address] CBC without Differential (08/18/2021 8:01 AM CDT) [...] Blood (Blood, 08/18/2021 8:01 AM 08/19/19 22 8:25 Venous) CDT AM CDT Edy Silverio M.D. LAB BLOOD ADD-ON Performing Organization Address City/State/ZIP Code Phon e Number [facility] - [address] [place], [place] [address] [place] [address] [facility] [address] documented in this encounter Visit Diagnoses Diagnosis Carcinoma Renal Cell Right (HCC) - Prima ry Carcinoma Renal Cell Right (HCC) Nodules Pulmonary Multiple documented in this encounter
--- OUTSIDE RECORDS SUMMARY | 2022-02-09 08:05 | XMS_ITS | Encounter Summary ---
:1955 Author Organization [facility] Address [address] [place] [address] Care Team Providers Name Role Phone Unavailable Primary Care Provider Unavailable Reason for Visit Reason Comments records request Encounter Details Date Type Department Care Team Description 07/19/2020 Clinical Communication Department of jacki Silverio request Urology in Edy Wagoner M.D. [place], [facility] [place] [address] [place], [place] [address] [facility] [address] [place], [place] [phone] (Work) [phone] Social History Tobacco Use Types Packs/Day Years [...] or relatives? How often do you attend faith or More than 4 times per year 08/15/2021 orthodoxy services? 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 Willis calls stating the images from 06/30/20 were never received. I put in another request for them to push them since she has an appointment tomorrow at 755am. INE MAINTENANCE REPAIRER Telephone Encounter - Mali Espino - 07/19/2020 3:30 PM CST Per pt request I sent a request to have CT images and radiology results from 06/30/2020 to pt's primary care Jenelle Orozco at [facility] in [facility]. Fax number [phone] INE MAINTENANCE REPAIRER documented in this encounter Plan of Treatment Not on filedocumented as of this encounter Visit Diagnoses Not on filedocumented in this encounter
--- OUTSIDE RECORDS SUMMARY | 2022-02-09 08:05 | XMS_ITS | Encounter Summary ---
:1955 Author Organization [facility] Address [address] [place] [address] Care Team Providers Name Role Phone Unavailable Primary Care Provider Unavailable Reason for Referral MRI/CAT/PET Scan (Routine) - Closed Specialty Diagnoses / Procedures Referred By Contact Refer red To Contact Radiology Diagnoses Carcinoma Renal Cell Right (HCC) Nodules Pulmonary Multiple Edy Silverio M.D. [facility] Procedures CT Chest with IV Contrast CT Chest without IV Contrast [address] [place], [place] [phone] Referral ID Status Reason Start Date Expiration Date Visits Requ ested Visits Authorized [id number] Closed 05/23/2021 05/23/2022 1 1 STITCH BACK MAKER Encounter Details Date Type Department Care Team Description 05/23/2021 Orders Only Department of Urology Alicia Ross C arcinoma Renal Cell Right (HCC) (Primary Dx); in [place], R.N. Nodules Pulmonary Multiple [place] [address] [facility] [address] [place] [phone] Social History Tobacco Use Types Packs/Day Years [...] More than 4 times per year 08/15/2021 mosque services? Do you belong to any clubs [...] place to sleep or slept in a custodial (including now)? Education Answer Date Recorded What is the highest level of school Bachelor's degree (e.g., BA, AB, 03/18/2019 you have completed or the highest BS) degree you have received? Sex Assigned at Date Recorded Female 05/10/2018 8:56 AM LOCKSTITCH BACK MAKER documented as of this encounter Plan of Treatment Not on filedocumented as of this encounter Results CT Chest with IV Contrast (08/18/2021 10:05 [...] reported separately. IMPRESSION: Stable chest CT. Edy ROJAS CT PROCEDURES documented in this encounter Visit Diagnoses Diagnosis Carcinoma Renal Cell Right (HCC) - Prima ry Nodules Pulmonary Multiple Carcinoma Renal Cell Right (HCC) Nodules Pulmonary Multiple documented in this encounter
--- OUTSIDE RECORDS SUMMARY | 2022-02-09 08:06 | XMS_ITS | Encounter Summary ---
:1955 Author Organization [facility] Address [address] [place] [address] Care Team Providers Name Role Phone Unavailable Primary Care Provider Unavailable Reason for Referral Outpatient (Routine) - Closed Specialty Diagnoses / Procedures Referred By Contact Refer red To Contact Nutrition Diagnoses Chronic Kidney Disease Stage 3 Glomerular Filtration Rate 30 To 59 (HCC) Rolando Mena M.D., Ph.D. [address] [phone] Referral ID Status Reason Start Date Expiration Date Visits Requ ested Visits Authorized [id number] Closed 01/27/2020 01/26/2021 1 1 Encounter Details Date Type Department Care Team Description 01/27/2020 Orders Only Department of Urology Rolando Mena Chro nic Kidney Disease in [facility] sarah Kc, Ph.D. Stage 3 Glomerular [address] [facility] Filtration Rate 30 To [place], [place] 59 (HCC) (Prim adore Dx) [phone] Social History Tobacco Use Types Packs/Day Years [...] or relatives? How often do you attend amish or More than 4 times per year 08/15/2021 druze services? Do you belong to any clubs or Yes 08/15/2021 organizations such as amish groups, unions, fraternal or athletic groups, or [...] place to sleep or slept in a skilled nursing (including now)? Education Answer Date Recorded What is the highest level of school Bachelor's degree (e.g., BA, AB, 03/18/2019 you have completed or the highest BS) degree you have received? 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
--- OUTSIDE RECORDS SUMMARY | 2022-02-09 08:06 | XMS_ITS | Encounter Summary ---
:1955 Author Organization [facility] Address [address] [place] [address] Care Team Providers Name Role Phone Unavailable Primary Care Provider Unavailable Reason for Visit Appointment Request (Routine) - Closed Specialty Diagnoses / Procedures Referred By Contact Refer red To Contact Dermatology Diagnoses Screening Examination Skin Cancer Jovani Canales M.D., M.S. [address] [place] [address] Referral ID Status Reason Start Date Expiration Date Visits Requ ested Visits Authorized [id number] Closed 06/19/2019 06/18/2020 1 1 Encounter Details Date Type Department Care Team Description 11/27/2019 Office Visit Department of Jovani Canales, Screening Examination Skin Cancer (Primary Dx); Dermatology in [place], M.S. Melanoma Personal History; [place], [place] [address] [facility] Pain Face [address] [place] [phone] Social History Tobacco Use Types Packs/Day [...] More than 4 times per year 08/15/2021 restorationist services? 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 - 11/27/2019 2:00 PM CDT REFERRING PROVIDER Jovani Canales M.D., M.S. [address] [place] [phone] CHIEF COMPLAINT Skin cancer screening examination HISTORY OF THE PRESENT ILLNESS Mrs. Karyna Willis is a pleasant 64 y.o. female who is coming in today with a prior history of a malignant melanoma in situ, lentigo maligna type, Dorian level I??that was identified and biopsied fromthe left mandible on September 16, 2018, and subsequently treated with Mohs surgery October 10, 2018. Over the past few months, Mrs. Willis has been experiencing a number of symptoms including pain involving the lower jaw which was evaluated by a dentist July of 2019, with no findings via x-ray. The pain then moved into the upper cheek and then into the sinus area, making her dizzy, and finally into the ear. In addition she has developed some red spots on her body, and is wondering if this could be HSV. 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 She feels that she may have been exposed to HSV at that time, and developed a patch on her belly that got tingly. 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 Her son then subsequently developed shinglesand her daughter developed chickenpox on her shoulder. Recently at the same time she has been experiencing pain in the jaw that radiated up into the cheekssinus and ear she has also noticed similar tingling involving the patch of her stomach. Mrs. Willis was seen in the [facility] by Dr. Taveras September 29, and again on November 02. Mrs. Willis has done a lot of research on her history of renal cell carcinoma, and pulmonary nodules, and is wondering if she hasa genetic syndrome that she should be aware of that could potentially be past to her children. PAST MEDICAL HISTORY Malignant melanoma in situ, lentigo maligna type-left mandible (treated with Mohs surgery October 10, 2018) Allergies Allergen Reactions ??? Pantoprazole Anaphylaxis and Other (see comments) swelling to uvula, and rash in groin ??? Hydrochlorothiazide Angioedema Not clearly related but possible. ??? Rabeprazole Rash Groin area REVIEW OF SYSTEMS Systems were reviewed today and were noncontributory for gastrointestinal, genitourinary, rheumatologic, respiratory, neurologic, and constitutional symptoms. PHYSICAL EXAM General: Awake, alert, in no acute distress, and with appropriate affect. Skin: Examination performed of the head (including ears and scalp), neck, chest (including breasts and axilla), abdomen, back, upper extremities, lower extremities, hands and feet (including digits), groin and buttock per patient's request. Examination reveals Allen type II skin. Multiple hyperpigmented macules noted that appear benign in nature many of which were evaluated dermoscopically. no lesions of concern identified, with no active primary lesions that would indicate an infection of theface such as an HSV outbreak. No other lesions of concern identified. Lymph: No lymphadenopathy appreciated in the cervical, supraclavicular, axillary, inguinal, or popliteal lymph node chains. IMPRESSION AND PLAN #1 History of malignant melanoma in situ, lentigo maligna type-left mandible No signs of recurrence noted on examination today. Recommendations as per below. #2 History of renal cell carcinoma with question of a potential genetic syndrome I have discussed the possibility of referring Mrs. Willis to a fusion analyst to discuss the possibility of checking for any potential genetic disorder that may have predisposed her to a renal cell carcinoma that her children may need to be aware of. She would like to discuss with her newspaper correspondent and anall let us know if she would like to have that referral or not. #3 Fair complected individual #4 Increased risk for future skin cancer #5 Pain-left jaw, cheek, ear Mrs. Willis will keep an eye on things, and let us know if things get worse. As of right now things are calm with no signs of infection or any other concerns on examination today. Mrs. Willis should sun protect daily and monitor her skin regularly. Full skin examinations in the Dermatology Department would be recommended on an annual basis. All questions addressed and answered today, and Mrs. Willis is welcome to call should any questions or concerns arise in the future. PATIENT EDUCATION Ready to learn. No apparent learning barriers were identified. Learning preferences include listening. Explained diagnosis and treatment plan; patient/guardian of patient expressed understanding of thecontent. documented in this encounter Plan of Treatment Not on filedocumented as of this encounter Visit Diagnoses Diagnosis Screening Examination Skin Cancer - Prim adore Melanoma Personal History Pain Face documented in this encounter
--- OUTSIDE RECORDS SUMMARY | 2022-02-09 08:06 | XMS_ITS | Encounter Summary ---
:1955 Author Organization [facility] Address [address] [place] [address] Care Team Providers Name Role Phone Unavailable Primary Care Provider Unavailable Encounter Details Date Type Department Care Team Description 01/19/2020 Clinical Communication Department of Urology Edy Silverio in Rizwana López M.D. [place] [address] [facility] [address] [place] [phone] Social History Tobacco Use Types Packs/Day Years [...] or relatives? How often do you attend gnosticist or More than 4 times per year 08/15/2021 church services? 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 locations only: If the patient is not having symptoms and is requesting COVID-19 Nasal Swab testing only, use the process listed in the COVID-19 Patient Requesting COVID PCR Test OTG COVID-19 [place] Patient Requesting COVID PCR Test). In the past 30 days have you had a swab for COVID that tested positive? no Route reply to: quang landry scheduling Scheduling Contact Number: [phone] documented in this encounter Plan of Treatment Not on filedocumented as of this encounter Visit Diagnoses Not on filedocumented in this encounter
--- OUTSIDE RECORDS SUMMARY | 2022-02-09 08:06 | XMS_ITS | Encounter Summary ---
:1955 Author Organization [facility] Address [address] [place] [address] Care Team Providers Name Role Phone Unavailable Primary Care Provider Unavailable Reason for Referral MRI/CAT/PET Scan (Routine) - Closed Specialty Diagnoses / Procedures Referred By Contact Refer red To Contact Radiology Diagnoses Cancer Renal Cell Carcinoma Personal History Lois Dugan R.N. [facility] Procedures CT Abdomen Pelvis with IV Contrast CT Abdomen Pelvis without and with IV Contrast Referral ID Status Reason Start Date Expiration Date Visits Requ ested Visits Authorized [id number] Closed 07/02/2019 07/01/2020 1 1 RI/CAT/PET Scan (Routine) - Modified Order Specialty Diagnoses / Procedures Referred By Contact Refer red To Contact Radiology Diagnoses Cancer Renal Cell Carcinoma Personal History Lois Dugan R.N. [facility] Procedures CT Chest with IV Contrast CT Chest without IV Contrast Referral ID Status Reason Start Date Expiration Date Visits V isits Requested Authorized [id number] Modified 07/02/2019 07/01/2020 1 1 Order Reason for Visit MRI/CAT/PET Scan (Routine) - Closed Specialty Diagnoses / Procedures Referred By Contact Refer red To Contact Radiology Diagnoses Cancer Renal Cell Carcinoma Personal History Lois Dugan R.N. [facility] Procedures CT Abdomen Pelvis with IV Contrast CT Abdomen Pelvis without and with IV Contrast Referral ID Status Reason Start Date Expiration Date Visits Requ ested Visits Authorized [id number] Closed 07/02/2019 07/01/2020 1 1 Encounter Details Date Type Department Care Team Description 01/07/2020 Hospital Encounter Department of Lois Dugan Cancer Renal Cell Radiology, Symone Rowe R.N. Carcinoma P [facility], in History [place], [place] [address] [place] [address] Social History Tobacco Use Types Packs/Day Years [...] or relatives? How often do you attend yazidism or More than 4 times per year 08/15/2021 mosque services? 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 tablet multivitamin (DAILY Take 1 tablet by 0 04/06/2010 06/30/2020 MULTIPLE) tablet mouth every morning. multivitamin (FLINTSTONES) Chew 1 tablet. 0 11/0302/24/2021 chewable Taking every other day. MULTIVITAMIN WITH IRON 0 07/04/2019 ORAL documented as of this encounter Plan of Treatment Not on filedocumented as of this encounter Procedures Procedure Name Priority Date/Time Associated Comments Diagnosis CT ABDOMEN PELVIS RAD - Routine 01/07/2020 11:32 Cancer Renal Cell Results for this WITH IV CONTRAST (most inpatients AM CDT Carcinoma procedu re are in and all Personal History the results outpatients) section. CT CHEST WITH IV RAD - Routine 01/07/2020 11:32 Cancer Renal Cell R esults for this CONTRAST (most inpatients AM CDT Carcinoma procedure a re in and all Personal History the results outpatients) section. documented in this encounter Results CT Abdomen Pelvis with IV Contrast (01/07/2020 11:32 AM CDT) Anatomical Region Laterality Modality Abdomen, Pelvis, Abdominal RST LOS, N/A Comp uted Tomography, Computed Abdominal ARZ LOS, Abdominal FLA LOS Iron ography Specimen (Source) Anatomical Collection Method Collection Time Re ceived Time Location / / Volume Laterality 01/07/2020 11:33 AM CDT Impressions 01/07/2020 12:07 PM CDT 1. No evidence of recurrent or metastatic disease in the abdomen or pelvis. 2. Nonspecific enteritis involving a med ium-sized segment of small bowel in the midabdomen likely due to infectious/infl ammatory etiology. Narrative 01/07/2020 12:07 PM CDT EXAM: ??CT ABDOMEN PELVIS WITH IV CONTRAST COMPARISON: ??CT abdomen and pelvis 05/21, 05/25/2019, and 03/19/2019. FINDINGS: ??Partial right upper pole rig ht nephrectomy. Stable nonenhancing scar tissue within the operative bed. No evid ence of recurrence. No lymphadenopathy. Multiple hepatic cysts and hemangiomas a re unchanged since 03/19/2019. Focal hepatic steatosis adjacent to the falcif orm ligament. Splenule. Hysterectomy. Remaining abdominal solid organs are nor mal. Medium-sized segment of small bowel wall submucosal edema ??in the mid abdom en with mild hazy mesenteric inflammatory changes (3/88-119). No associated mass o r significant lymphadenopathy. Small fat-containing left inguinal hernia. This examination was performed in conjun ction with a CT of the chest, which will be reported separately. Procedure Note Sahara Jo M.D. - 01/07/2020Form atting of this note might be different from the original. EXAM: CT ABDOMEN PELVIS WITH IV CONTRAST COMPARISON: CT abdomen and pelvis 2019, 05/25/2019, and 03/19/2019. FINDINGS: Partial right upper pole right nephrectomy. Stable nonenhancing scar tissue within the operative bed. No evid ence of recurrence. No lymphadenopathy. Multiple hepatic cysts and hemangiomas a re unchanged since 03/19/2019. Focal hepatic steatosis adjacent to the falcif orm ligament. Splenule. Hysterectomy. Remaining abdominal solid organs are nor mal. Medium-sized segment of small bowel wall submucosal edema in the mid abdomen with mild hazy mesenteric inflammatory changes (3/88-119). No associated mass o r significant lymphadenopathy. Small fat-containing left inguinal hernia. This examination was performed in conjun ction with a CT of the chest, which will be reported separately. IMPRESSION: 1. No evidence of recurrent or metastati c disease in the abdomen or pelvis. 2. Nonspecific enteritis involving a med ium-sized segment of small bowel in the midabdomen likely due to infectious/infl ammatory etiology. Lois ROJAS CT PROCEDURES CT Chest with IV Contrast (01/07/2020 11:32 AM CDT) Anatomical Region Laterality Modality Chest, Thoracic RST LOS, Thoracic ARZ N/A Co mputed Tomography, Computed LOS, Thoracic ARZ LOS, Thoracic FLA Kevin graphy LOS Specimen (Source) Anatomical Collection Method Collection Time Re ceived Time Location / / Volume Laterality 01/07/2020 12:34 PM CDT Impressions 01/07/2020 12:50 PM CDT 1. Tiny bilateral pulmonary nodules that were new on 07/02/2019 have resolved. 2. Additional tiny bilateral pulmonary n odules are stable. Narrative 01/07/2020 12:50 PM CDT EXAM: CT CHEST WITH IV CONTRAST COMPARISON: CT chest 07/02/2019 and 03/19. FINDINGS: The tiny nodules in the right lower lobe and left lower lobe that were new on 07/02/2019 have resolved. A small area of clustered micronodularity seen previously in the right middle lobe has also resolved. Additional tiny bilateral pulmonary nodules are unchanged since . No new nodules. Slight scattered scarring in the lower lungs. Scattered nodes in the chest without santana nopathy. Stable small subcutaneous nodule in the upper back in the midline (image 98) Thoracolumbar curve with associated hypertrophic changes in the s pine. This examination was performed in conjun ction with a CT of the abdomen, which will be reported separately. Procedure Note Nirav Jones M.D. - 01/07/2020Form atting of this note might be different from the original. EXAM: CT CHEST WITH IV CONTRAST COMPARISON: CT chest 07/02/2019 and 03/19. FINDINGS: The tiny nodules in the right lower lobe and left lower lobe that were new on 07/02/2019 have resolved. A small area of clustered micronodularity seen previously in the right middle lobe has also resolved. Additional tiny bilateral pulmonary nodules are unchanged since . No new nodules. Slight scattered scarring in the lower lungs. Scattered nodes in the chest without santana nopathy. Stable small subcutaneous nodule in the upper back in the midline (image 98) Thoracolumbar curve with associated hypertrophic changes in the s pine. This examination was performed in conjun ction with a CT of the abdomen, which will be reported separately. IMPRESSION: 1. Tiny bilateral pulmonary nodules that were new on 07/02/2019 have resolved. 2. Additional tiny bilateral pulmonary n odules are stable. Lois ROJAS CT PROCEDURES documented in this encounter Visit Diagnoses Diagnosis Cancer Renal Cell Carcinoma Personal His tory documented in this encounter Administered Medications Inactive Administered Medications - up to 3 most recent administrations Medication Order MAR Action Action Date Dose Rate Site iohexoL 300 mg iodine/mL solution Given 01/07/2020 11:23 AM CDT 140 mL 1-200 mL (OMNIPAQUE) 1-200 mL, intravenous, Once in imaging, contrast, Starting on Sun01/07/20 at 1044, For 1 dose, Imaging Protocol Orders, Dose per Radiant Medication Guidelines sodium chloride (PF) 0.9 % injection 1-1 00 mL Given 01/07/2020 11:24 AM CDT 50 mL 1-100 mL, intravenous, Once, On Sun01/07/20 at 1045, For 1 dose, Imaging Protocol Orders documented in this encounter
--- OUTSIDE RECORDS SUMMARY | 2022-02-09 08:06 | XMS_ITS | Encounter Summary ---
:1955 Author Organization [facility] Address [address] [place] [address] Care Team Providers Name Role Phone Unavailable Primary Care Provider Unavailable Reason for Visit Reason Onset Date Comments Persistant back ache 05/23/2019 Encounter Details Date Type Department Care Team Description 05/23/2019 Clinical Communication Department of German[facility] in Edy Wagoner M.D. [facility], [facility] [address] [place], [place] [address] [place] [id number] [place], [place] [phone] (Work) [phone] Social History Tobacco Use Types Packs/Day Years [...] More than 4 times per year 08/15/2021 muslim services? 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 - 05/23/2019 2:10 PM CST Return patient phone call. We discussed that her left pain beneath her shoulder is very unlikely related to her right partial nephrectomy one year ago. I did strongly urge her to seek care on an emergent basis as differentials could include nephrolithiasis, pyelonephritis, pulmonary embolus or a cardiac event including myocardial infarction. We discussed that women can present with atypical symptoms in the presence cardiac events that can lead to . Patient states she will consider this option as she is currently traveling in [place]. Patient thanked me for phone call. Patient returning to [place] next week. If she is not feeling better at this time, she is welcome to contact the department in we could pursue imaging to rule out genitourinary source of discomfort; would also recommend consultation with PCP for other sources of pain. 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 - 05/23/2019 1:36 PM CST SUBJECTIVE CHIEF COMPLAINT / REASON FOR CALL Persistant back ache ASSESSMENT Mrs. Willis is a patient of Dr. Edy Silverio. 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 She calls today c/o intermittent, dull, 2-3/10 pain beneath her shoulder blade just above the kidney, accompanied by mean hot flashes that she has never had before. She says the symptoms started 4-5 days ago, and she has never had them before. Denies fever, nausea, vomiting, frequency or urgengy. Her urine is clear and her stream is normal. She has not fallen or had an injury. PLAN Disposition/Recommendation: Push fluids, apply ice/heat as needed. Information/Education: patient/caller able to teach back. Caller agreeable to plan of care: yes. The following references were used: nursing clinical judgement. 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 Silverio for pT2a chromophobe renal cell carcinoma. Mrs. Willis calls requesting a nurse call her back in regards to having persistent back ache on her left side for the last 4-5 days. She can be reached on her cell at [phone]. Thanks. 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
--- OUTSIDE RECORDS SUMMARY | 2022-02-09 08:06 | XMS_ITS | Encounter Summary ---
:1955 Author Organization [facility] Address [address] [place] [address] Care Team Providers Name Role Phone Unavailable Primary Care Provider Unavailable Reason for Visit Reason Comments Results Encounter Details Date Type Department Care Team Description 07/03/2019 Clinical Communication Breast Diagnostic Alma Gonzalez, [place] [facility] [place], Ph.D. 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
--- OUTSIDE RECORDS SUMMARY | 2022-02-09 08:06 | XMS_ITS | Encounter Summary ---
:1955 Author Organization [facility] Address [address] [place] [address] Care Team Providers Name Role Phone Unavailable Primary Care Provider Unavailable Reason for Referral MRI/CAT/PET Scan (Routine) - Closed Specialty Diagnoses / Procedures Referred By Contact Refer red To Contact Radiology Diagnoses Cancer Renal Cell Carcinoma Personal History Lois Dugan R.N. [facility] Procedures CT Abdomen Pelvis with IV Contrast CT Abdomen Pelvis without and with IV Contrast Referral ID Status Reason Start Date Expiration Date Visits Requ ested Visits Authorized [id number] Closed 01/07/2020 01/06/2021 1 1 utpatient (Routine) - Closed Specialty Diagnoses / Procedures Referred By Contact Refer red To Contact Urology Lois Dugan R.N. [facility] Referral ID Status Reason Start Date Expiration Date Visits Requ ested Visits Authorized [id number] Closed 01/07/2020 01/06/2021 1 1 RI/CAT/PET Scan (Routine) - Closed Specialty Diagnoses / Procedures Referred By Contact Refer red To Contact Radiology Diagnoses Cancer Renal Cell Carcinoma Personal History Lois Dugan R.N. [facility] Procedures CT Chest with IV Contrast Referral ID Status Reason Start Date Expiration Date Visits Requ ested Visits Authorized [id number] Closed 01/07/2020 01/06/2021 1 1 Reason for Visit Outpatient (Routine) - Closed Specialty Diagnoses / Procedures Referred By Contact Refer red To Contact Urology Lois Dugan R.N. [facility] Referral ID Status Reason Start Date Expiration Date Visits Requ ested Visits Authorized [id number] Closed 07/02/2019 07/01/2020 1 1 Encounter Details Date Type Department Care Team Description 01/07/2020 Office Visit Department of Urology Edy Silverio Cancer Renal Cell in [place], [place] Carcinoma Personal [place] [address] [facility] History (Primary Dx) [address] [place] [id number] [phone] Social History Tobacco Use Types Packs/Day Years [...] or relatives? How often do you attend yazdanism or More than 4 times per year 08/15/2021 zoroastrian services? Do you belong to any clubs or Yes 08/15/2021 organizations such as yazdanism groups, unions, fraternal or athletic groups, or [...] at Date Recorded Female 05/10/2018 8:56 AM CRUST SORTER documented as of this encounter Progress Notes Lois Dugan APRN, C.N.P., M.S.N. - 01/07/2020 3:00 PM CDT SUBJECTIVE CHIEF COMPLAINT/REASON FOR VISIT Chromophobe renal cell carcinoma recheck HISTORY OF PRESENT ILLNESS Mrs. Willis is a pleasant 64 y.o. 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 Patient was last evaluated in the department of Urology July 02, 2019. Patient had previously noted pulmonary nodularity (03/19/19), pulmonary medicine had recommended follow-up CT in 1 year. Patient denies changes in her medical or surgical history. Today she is feeling well. Patient inquiring why her GFR is declining, presently 42. No urinary complaints. The following portions of the patient's history were reviewed and updated as appropriate: allergies,current medications, family history, medical history, social history, surgical history and problem list. REVIEW OF SYSTEMS Constitutional: Positive for fatigue. Skin: Positive for change in mole or skin spot. Eyes: Positive for visual problems. Cardiovascular: Positive for swelling in the legs or feet. Gastrointestinal: Positive for heartburn. Musculoskeletal: Positive for back pain. Psychiatric/Behavioral: Positive for feeling nervous, anxious, or on edge in past two weeks. The following systems were negative: ENT, Respiratory, , Hematologic, Neuro OBJECTIVE PHYSICAL EXAM Constitutional: She appears well-developed and well-nourished. Pulmonary/Chest: Effort normal. Musculoskeletal: Normal gait Neurological: She is alert. Psychiatric: She has a normal mood and affect. Her behavior is normal. Recent Results (from the past 24 hour(s)) Basic Metabolic Panel Collection Time: 01/07/20 9:15 AM Result Value Potassium, S 4.6 Sodium, S 145 Chloride, S 108 (H) Bicarbonate, S 24 Anion Gap 13 Bld Urea Nitrog(BUN), S 18 Creatinine, S 1.33 (H) eGFR-Non Black 42 (L) eGFR-Black 48 (L) Calcium, Total, S 9.8 Glucose, S 84 CBC without Differential Collection Time: 01/07/20 9:15 AM Result Value Hemoglobin 14.3 Hematocrit 42.4 Erythrocytes 4.83 MCV 87.8 RBC Distrib Width 13.2 Platelet Count [address] Chest With Iv Contrast Result Date: 01/07/2020 Impression: 1. Tiny bilateral pulmonary nodules that were new on 07/02/2019 have resolved. 2. Additional tiny bilateral pulmonary nodules are stable. Ct Abdomen Pelvis With Iv Contrast Result Date: 01/07/2020 Impression: 1. No evidence of recurrent or metastatic disease in the abdomen or pelvis. 2. Nonspecific enteritis involving a medium-sized segment of small bowel in the midabdomen likely due to infectious/inflammatory etiology. ASSESSMENT / PLAN #1 Chromophobe renal cell carcinoma #2 CKD It was pleasure of meeting with Ms. Willis alongside her today in clinic. I was pleased to report that there is no evidence of disease recurrence within her abdomen, pelvis or chest. Pulmonary nodules appear stable. This is all excellent news. I will forward the results of her abdominal CT to her family medicine provider to follow-up with suspicious enteritis incidentally seen on imaging. Patient requesting nephrology consultation at [facility]. PLAN: --Nephrology consult for CKD --RCC f/u in [address] abdomen/pelvis and chest and BMP and office visit --Forward results of imaging to PCP Signed by: Lois Dugan APRN, C.N.P., M.S.N. 01/07/2020 6:24 PM CDT documented in this encounter Plan of Treatment Scheduled Referrals Name Type Priority Associated Diagnoses Order S christopher Urology office Outpatient Referral Routine Expect ed: visit (clinic) 07/16/2020 (Approximate), Expires: 01/06/2023 documented as of this encounter Results CT Abdomen Pelvis with IV Contrast (06/30/2020 9:05 AM [facility] SORTER) Anatomical Region Laterality Modality Abdomen, Pelvis, Abdominal RST LOS, N/A Comp uted Tomography, Computed Abdominal ARZ LOS, Abdominal FLA LOS Iron ography Specimen (Source) Anatomical Collection Method Collection Time Re ceived Time Location / / Volume Laterality 06/30/2020 10:12 AM [facility]TER Impressions 06/30/2020 12:08 PM [facility]TER No evidence of recurrent or metastatic disease in the abdomen and pelvis. Narrative 06/30/2020 12:08 PM [facility] S[facility]TER EXAM: ??CT ABDOMEN PELVIS WITH IV CONTRAST [...] isease in the abdomen and pelvis. Lois ROJAS CT PROCEDURES CT Chest with IV Contrast (06/30/2020 9:05 AM CRUST SORTER) Anatomical Region Laterality Modality Chest, Thoracic RST LOS, Thoracic ARZ N/A Co mputed Tomography, Computed LOS, Thoracic ARZ LOS, Thoracic FLA Kevin graphy LOS Specimen (Source) Anatomical Collection Method Collection Time Re ceived Time Location / / Volume Laterality 06/30/2020 9:27 AM [facility] Impressions 06/30/2020 9:32 AM [facility] S[facility]TER Stable chest CT . Narrative 06/30/2020 9:32 AM CR[facility] SORTER EXAM: CT CHEST WITH IV CONTRAST COMPARISON: [...] separately. IMPRESSION: Stable chest CT . Lois Dugan R.N. IMG CT PROCEDURES (ABNORMAL) Protein/Creatinine Ratio, Random, Urine (06/30/2020 8:01 AM CR[facility] SORTER) P athologist Signature Protein, Total, <4 mg/dL 06/30/2020 CASS Random, U 8:28 AM [facility] S[facility]TER Comment: ----ADDITIONAL INFORMATION---- On 11/14/2016 the total protein assay me thod changed resulting in approximately a 15% increase in prote in values. Creatinine Concentration 21 mg/dL 06/30/2020 8:26 AM [facility] S[facility]TER CASS Protein/Creatinine Ratio <0.19 (H) <0.18 mg/mg 06/30/2020 8: 26 AM CR[facility] S[facility]TER CASS Comment: ----ADDITIONAL INFORMATION---- On 11/14/2016 the total protein assay me thod changed resulting in approximately a 15% increase in prote in values. Specimen Anatomical Collection Method Collection Time Receive d Time (Source) Location / / Volume Laterality Urine (Urine, 06/30/2020 8:01 AM 06/30/19 8:01 Clean Catch) CRUST SORTER AM CR[facility] S[facility]TER Lois Dugan R.N. LAB URINE ORDERABLES Performing Organization Address City/State/ZIP Code Phon e Number [facility] - [address] [place], [place] [address] [place] [address] Laboratories-[facility] 200 [facility] Albumin, Random, Urine (06/30/2020 8:01 AM CRUST SORTER) athologist Signature Albumin, <5.0 mg/L 06/30/2020 DTL Random, U 9:32 AM CR[facility] SORTER Comment: ----ADDITIONAL INFORMATION---- This test has been modified from the man ufacturer's instructions. Its performance characteri stics were determined by [facility] in a manner co nsistent with CLIA requirements. This test has not bee n cleared or approved by the U.S. Food and Drug Admin istration. Creatinine 21 mg/dL 06/30/2020 8:26 AM [facility] S[facility]TER CASS Albumin/Creatinine Ratio <24 <25 mg/g 06/30/2020 9:32 AM CR[facility] SORTER DTL Comment: This ratio may not correspond with the r eference range because one or both of the values used t o calculate the ratio was above or below the quantificat ion limits. Specimen Anatomical Collection Method Collection Time Receive d Time (Source) Location / / Volume Laterality Urine (Urine, 06/30/2020 8:01 AM 06/30/19 8:01 Clean Catch) CRUST SORTER AM [facility] S[facility]TER Lois Dugan R.N. LAB URINE ORDERABLES Performing Organization Address City/State/ZIP Code Phon e Number [facility] - [address] [place] [address] [place] [address] [facility] [address] [place] [address] Laboratories-[address] (ABNORMAL) Urinalysis with Microscopic: Urine, Voided (06/30/2020 8:01 AM CRUST SORTER) athologist Signature Source Void 06/30/2020 CASS 8:01 AM CR[facility] S[facility]TER Appearance Normal Normal 06/30/2020 CASS 8:24 AM CR[facility] S[facility]TER Osmolality, U 82 (L) 150 - 1150 06/30/2020 CASS mOsm/kg 8:58 AM CR[facility] S[facility]TER pH, U 6.1 4.5 - 8.0 06/30/2020 CASS 8:58 AM CR[facility] S[facility]TER Comment: ----ADDITIONAL INFORMATION---- This test was developed and its performa nce characteristics determined by [facility] in a manner co nsistent with CLIA requirements. This test has not bee n cleared or approved by the U.S. Food and Drug Admin istration. Glucose <2 0 - 15 mg/dL 06/30/2020 8:24 AM CR[facility] SORTER CASS Protein, U <4 <26 mg/dL 06/30/2020 8:24 AM CR[facility] SORTER CASS Comment: ----ADDITIONAL INFORMATION---- On 11/14/2016 the total protein assay me thod changed resulting in approximately a 15% increase in prote in values. Protein/Osmolality <0.49 (H) <0.42 Ratio 06/30/2020 8:58 AM [facility] SORTER CASS Comment: ----ADDITIONAL INFORMATION---- On 11/14/2016 the total protein assay me thod changed resulting in approximately a 15% increase in prote in values. Predicted 24 Hr Protein <349 mg/24 h 06/30/2020 8:58 AM CR[facility] SORTER CASS Predicted Range <1411 mg/24 h 06/30/2020 8:58 AM CRUST SORTER R COLLIN Hemoglobin, QL Negative Negative 06/30/2020 8:41 AM CRUST SORTER RE NA Specimen Anatomical Collection Method Collection Time Receive d Time (Source) Location / / Volume Laterality Urine (Urine, 06/30/2020 8:01 AM 06/30/19 8:01 Voided) CRUST SORTER AM [facility]TER Lois Dugan R.N. LAB URINE ORDERABLES Performing Organization Address City/State/ZIP Code Phon e Number [facility] - [address] [place], [place] [address] [facility] [place] [address] [facility] [address] Uric Acid (06/30/2020 7:25 AM CRUST SORTER) P athologist Signature Uric Acid, S 4.5 2.7 - 6.1 06/30/2020 DTL mg/dL 8:29 AM CRUST SORTER Specimen Anatomical Collection Method Collection Time Receive d Time (Source) Location / / Volume Laterality Blood (Blood, 06/30/2020 7:25 AM 06/30/19 7:49 Venous) CRUST SORTER AM CR[facility] S[facility]TER Lois Dugan R.N. LAB BLOOD ADD-ON Performing Organization Address City/[facility] Code Phon e Number [facility] - [address] [place], [place] [address] [facility] [place] [address] [facility] 200 [facility] CBC with Differential, Blood (06/30/2020 7:25 AM CRUST SORTER) P athologist Signature Hemoglobin 13.7 11.6 - 06/30/2020 DTL 15.0 g/dL 8:01 AM [facility] S[facility]TER Hematocrit 42.3 35.5 - 06/30/2020 DTL 44.9 % 8:01 AM [facility] S[facility]TER Erythrocytes 4.74 3.92 - 06/30/2020 DTL 5.13 8:01 AM CR[facility] SORTER x10(12)/L MCV 89.2 78.2 - 06/30/2020 DTL 97.9 fL 8:01 AM CR[facility] SORTER RBC Distrib Width 12.9 12.2 - 06/30/2020 DTL 16.1 % 8:01 AM CR[facility] SORTER Platelet Count 187 157 - 371 06/30/2020 DTL x10(9)/L 8:01 AM CR[facility] S[facility]TER Leukocytes 4.7 3.4 - 9.6 06/30/2020 DTL x10(9)/L 8:01 AM CR[facility] S[facility]TER Neutrophils 2.76 1.56 - 06/30/2020 DTL 6.45 8:01 AM CR[facility] SORTER x10(9)/L Lymphocytes 1.26 0.95 - 06/30/2020 DTL 3.07 8:01 AM CR[facility] SORTER x10(9)/L Monocytes 0.41 0.26 - 06/30/2020 DTL 0.81 8:01 AM CR[facility] SORTER x10(9)/L Eosinophils 0.22 0.03 - 06/30/2020 DTL 0.48 8:01 AM CR[facility] SORTER x10(9)/L Basophils 0.05 0.01 - 06/30/2020 DTL 0.08 8:01 AM CR[facility] SORTER x10(9)/L Specimen Anatomical Collection Method Collection Time Receive d Time (Source) Location / / Volume Laterality Blood (Blood, 06/30/2020 7:25 AM 06/30/19 7:49 Venous) CRUST SORTER AM CR[facility] SORTER Lois Dugan R.N. LAB BLOOD ADD-ON Performing Organization Address City/State/ZIP Code Phon e Number [facility] - [address] [place], [place] [address] [facility] [place] [address] [facility] [address] (ABNORMAL) Renal Function Panel (06/30/2020 7:25 AM CRUST SORTER) Analysis Performed At Patho logist Time Signature Potassium, S 3.7 3.6 - 5.2 06/30/2020 DTL mmol/L 8:29 AM CRUST SORTER Sodium, S 143 135 - 145 06/30/2020 DTL mmol/L 8:29 AM CR[facility] SORTER Chloride, S 106 98 - 107 06/30/2020 DTL mmol/L 8:29 AM [facility] SORTER Bicarbonate, S 28 22 - 29 06/30/2020 DTL mmol/L 8:29 AM CRUST SORTER Anion Gap 9 7 - 15 06/30/2020 DTL 8:29 AM CR[facility] SORTER BUN (Blood Urea 11 6 - 21 06/30/2020 DTL Nitrogen), S mg/dL 8:29 AM CR[facility] SORTER Creatinine 1.22 (H) 0.59 - 06/30/2020 DTL 1.04 mg/dL 8:29 AM CR[facility] SORTER eGFR-Non 46 (L) >=60 06/30/2020 DTL Black/ mL/min/BSA 8:29 AM CR[facility] SORTER [place]riot Comment: ----ADDITIONAL INFORMATION---- Estimated GFR calculated using the 2009 CKD_EPI creatinine equation. eGFR-Black/ 53 (L) >=60 mL/min/BSA 2020 8:29 AM CRUST SORTER DTL Comment: ----ADDITIONAL INFORMATION---- Estimated GFR calculated using the 2009 CKD_EPI creatinine equation. Calcium, Total, S 9.4 8.8 - 10.2 mg/dL 06/30/2020 8:29 AM CR[facility] SORTER DTL Glucose, S 67 (L) 70 - 140 mg/dL 06/30/2020 8:29 AM CRUST SORTER D TL Albumin, S 4.4 3.5 - 5.0 g/dL 06/30/2020 8:29 AM CRUST SORTER D TL Phosphorus (Inorganic), S 3.8 2.5 - 4.5 mg/dL 06/30/19 8:29 AM CR[facility] SORTER DTL Specimen Anatomical Collection Method Collection Time Receive d Time (Source) Location / / Volume Laterality Blood (Blood, 06/30/2020 7:25 AM 06/30/19 7:49 Venous) CRUST SORTER AM [facility] SORTER Lois Dugan R.N. LAB BLOOD ADD-ON Performing Organization Address City/State/ZIP Code Phon e Number [facility] - [address] [place], [place] [address] [facility] [address] [facility] [address] documented in this encounter Visit Diagnoses Diagnosis Cancer Renal Cell Carcinoma Personal His tory - Primary Cancer Renal Cell Carcinoma Personal His tory documented in this encounter
--- OUTSIDE RECORDS SUMMARY | 2022-02-09 08:06 | XMS_ITS | Encounter Summary ---
:1955 Author Organization [facility] Address [address] [place] [address] Care Team Providers Name Role Phone Unavailable Primary Care Provider Unavailable Reason for Visit Appointment Request (Routine) - Closed Specialty Diagnoses / Procedures Referred By Contact Refer red To Contact [facility] Diagnoses Gdsy-Gfxs-Vvfs Syndrome (HCC) Jenelle Orozco M.D. [address] [place] [address] Referral ID Status Reason Start Date Expiration Date Visits Requ ested Visits Authorized [id number] Closed 02/17/2020 02/16/2021 2 1 Encounter Details Date Type Department Care Team Description 03/22/2020 Comprehensive Visit Department of Wayne Shirley M.D. [address] [place] [address] Cancer Renal Cell Carcinoma Personal His tory (Primary Dx); [facility] [address] [place] [address] Mass Kidney; [place], [place] Cancer Breast Family History ; [address] [facility] Melanoma Of Skin Cancer Pers onal History; [place], [place] Cancer Skin Fa jalen History; [id number] Family History Genetic Disor sarahy [phone] Social History Tobacco Use Types Packs/Day Years [...] or relatives? How often do you attend restorationism or More than 4 times per year 08/15/2021 rastafarian services? Do you belong to any clubs or Yes 08/15/2021 organizations such as restorationism groups, unions, fraternal or athletic groups, or [...] at Date Recorded Female 05/10/2018 8:56 AM SEO ASSISTANT documented as of this encounter Last Filed Vital Signs Vital Sign Reading Time Taken Comments Blood Pressure 157/75 03/22/2020 12:59 PM SEO ASSISTANT Pulse 62 03/22/2020 12:59 PM SEO ASSISTANT Temperature - - Respiratory Rate - - Oxygen Saturation - - Inhaled Oxygen Concentration - - Weight 72.4 kg (159 lb 9.8 oz) 03/22/2020 12:59 PM SEO ASSISTANT Height 160.6 cm (5' 3.23) 03/22/2020 12:59 PM SEO ASSISTANT Body Mass Index 28.07 03/22/2020 12:59 PM SEO ASSISTANT documented in this encounter Progress Notes Perfecto Shirley M.D. - 03/22/2020 1:00 PM CST I saw and evaluated the patient, participating in the alexander portions of the service. I reviewed the resident/fellow???s note. I agree with the resident/fellow???s findings and plan. Briefly, Karyna Willis is a 64-year-old female from [place] was referred to [facility] for genetic condition evaluation. Patient was accompanied by her . 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 Patient had done some research and was concerned of a possibility of Pgdj-Rtif-Jknw syndrome. She has no history of spontaneous pneumothorax, pulmonary cysts, fibrofolliculoma-like facial lesions. Patient also concerned of a possibility being a carrier for galactosemia and risks for her grandchildren. #1 History of chromophobe renal cell carcinoma #2 History of cutaneous melanoma #3 Family history of bilateral breast cancer at older age, mother #4 Family history of uterine cancer at age 28, maternal cousin #5 Family history of lipomatosis, brother #6 Family history of late onset hearing loss #7 Family history of galactosemia I have personally reviewed chest CT and there was no evidence of pulmonary cysts. Physical exam did not reveal ibrofolliculoma-like facial lesions. Presentation is not suggestive of a particular hereditary predisposition to neoplasia, including Cxjr-Jrfb-Vhnc syndrome and broader genetic testing basedon personal family history can be considered. Discussed with the patient/family the rationale for the genetic evaluation, testing options including advantages and limitations, insurance issues, possible outcomes of the genetic testing including positive negative and variants of uncertain significance, various modes of inheritance. Discussed with the patient that genetic test result may become available through the patient online services before we had a chance to review it. Patient elected to proceed with genetic testing after insurance prior authorization. Performing lab will contact the patient for uju-wv-[id number] charges. We agreed with the patient to update on results of genetic testing via patient portal if negative or variant(s) of uncertain significance. Positive husam t result will help with screening for the patient and testing family members at risk. If the result is negative, patient may benefit from re-evaluation in the future and relatives at risk can consider screening based on the family history (renal imaging). Patient believes that genetic testing in regard of family history of galactosemia was performed. It would be helpful to obtain the report and evaluate for carrier status either the patient (preferable to limit the number of tests), or both of her children. Discussed in detail with the patient/family impression and plan and answered their questions. Patient/family expressed understanding of the content. Educational materials were provided as appropriate. Dictation of this note utilized the [employer] Direct speech recognition dictation system. Someerrors and omissions may remain despite proofreadin Perfecto Shirley M.D. Orders Placed This Encounter Procedures ??? Cryopreservation for Molecular Genetic Studies [id number] [employer] Custom Panel - Miscellaneous Test: 1. Multi-Cancer Panel, Test code: 54333 2. Renal/Urinary Tract Cancers Panel; Test code: 49274. Add-on Preliminary- evidence Genes for Renal/Urinary Tract Cancers (7 genes) ASSISTANT documented in this encounter Consult Notes Noel Cassidy M.B.B.S. - 03/22/2020 1:00 PM CST SUBJECTIVE CHIEF COMPLAINT / REASON FOR CONSULT Karyna Willis is a delightful 64 y.o. female who was Jenelle Orozco M.D. for evaluation of personal history of chromophobe renal cell carcinoma. She is accompanied by her spouse. Genetic counselor present: none. HISTORY OF PRESENT ILLNESS History provided by: patient. Additional reports reviewed: historical medical records, lab reports, office notes and radiology reports The following portions of the patient's history were reviewed and updated as appropriate: allergies,current medications, family history, medical history, social history, surgical history, developmental history, history and problem list Mrs.Martha José Antonio Willis presented for evaluation of inherited causes for personal history of chromophobe type renal cell carcinoma. She presented to local emergency department on 05/05/2018 for fever, shortness of breath and irregular heart beat. All of her labs were normal except that her D-dimer was elevated. CT scan was done which incidentally revealed right-sided renal cell carcinoma measuring 6.7 x 5.5 x 3.9 cm. She was seen here in Urology and underwent partial nephrectomy on 07/02/2018. Final surgical pathology showed the tumor to be 7.5 cm in greatest dimension and a renal cell carcinoma, chromophobe cell type. She did not require any adjuvant therapy. She was also found to multiple small pulmonary nodules and indeterminate lesions in liver. She has been under close follow-up with periodic reimaging on which the lesions remain stable. She also had malignant melanoma in situ, lentigo maligna type, Dorian level I??that was identified and biopsied from the left mandible on September 16, 2018, and subsequently treated with Mohs surgery October 10, 2018. She has been under close follow-up with multiple specialties including Dermatology, Nephrology, Urology and internal medicine. She researched her medical issues and suspects that she could haveBirt Shyanne Mechelle syndrome. She does not have any other major health issues. She has no past history ofpneumothorax or recurrent breathlessness. There is no history of any other skin tumors apart from mal ignant melanoma in-situ and actinic keratoses. Past Medical History: Diagnosis Date ??? Anemia [...] ??? Melanoma Face (HCC) ??? Polyp Colon 2014 ??? Post Operative Nausea/Vomiting ??? Pulmonary Nodule Computed Tomography Indeterminate 04/2018 Past Surgical History: Procedure Laterality Date ??? HERNIA REPAIR ??? HYSTERECTOMY 2005 spinal, some awarness during procedure ??? INGUINAL HERNIA REPAIR Left as an . ??? NEPHRECTOMY - PARTIAL Right 07/02/2018 Procedure: Nephrectomy, Partial.; Surgeon: Edy Silverio M.D.; Location: [facility] OR Family history: Pedigree reviewed and available on the computerized medical record. Her elder sister had one lesion in the face, which was diagnosed with basal cell carcinoma at 67 years of age. Younger brother has multiple lipomas all over the body since 20 years of age, several of which were removed surgically. Her mother had bilateral breast cancer at 77 years of age, it appears no genetic testing was done. Her mother and maternal uncle also has late onset hearing loss. One of her maternal cousin had uterine cancer 28 years of age, apparently no genetic test was done. The same maternal cousin who had uterine cancer also had a son in 1999 born in [place], who passedaway at 11 days of age due to classic Galactosemia. Genetic confirmation and parental testing was apparently done, results of which were not available during this encounter. Family History Relation Problem Comments Mother - Alexa Forrester Arthritis Breast cancer Colon polyps Hypertension Father - Yonis Tapia Ricokassidygoldie Coronary artery disease Hyperlipidemia Unexplained Sister - Odette Sibley Colon polyps Brother - Hugo Mitzy Asthma Mother's Sister - Yuli Enriquez Diabetes Obesity Maternal Grandmother - Luz Elena Whitney Arthritis Maternal Grandfather - Truman Whitney Dementia Paternal Grandmother - Radha Forrester Hypertension Stroke Paternal Grandfather - Kevin Soledad Forrester Coronary artery disease REVIEW OF SYSTEMS Skin: Positive for change in mole or skin spot. The following systems were negative: Constitutional, Eyes, ENT, CV, Respiratory, GI, , Hematologic, Neuro, Psych OBJECTIVE PHYSICAL EXAM General: well developed and well nourished Head circumference 57 cms Head shape: normocephalic Forehead: normal Facies: normal appearing Eyes: PERRL EOM intact ENT: Palate intact, normally arched, mucous membranes moist. Ears normally shaped and placed. Neck: supple without masses or thyromegaly Chest:Normal Respiratory: appears well, vitals normal, no respiratory distress, acyanotic, normal RR, chest clear, no wheezing, crepitations, rhonchi, normal symmetric air entry Cardiovascular: Heart rate was regular with normal heart sounds without murmurs Precordium was not hyperactive Abdomen: Normal scaphoid appearance, soft, non-tender, without organ enlargement or masses. Genitalia: not examined Back: spine normal, symmetric Extremities: full ROM, strength normal, no evidence of muscle atrophy, no edema, normal nails Neuro: mental status was alert, gait normal, cranial nerves appeared intact, deep tendon reflexes were normally ative and sensation intact Skin: normal Imaging EXAM: CT ABDOMEN PELVIS WITH IV CONTRAST COMPARISON: CT abdomen and pelvis 06/01/2019, 05/25/2019, and 03/19/2019. FINDINGS: Partial right upper pole right nephrectomy. Stable nonenhancing scar tissue within the operative bed. No evidence of recurrence. No lymphadenopathy. Multiple hepatic cysts and hemangiomas are unchanged since 03/19/2019. Focal hepatic steatosis adjacent to the falciform ligament. Splenule. Hysterectomy. Remaining abdominal solid organs are normal. Medium-sized segment of small bowel wall submucosal edema in the mid abdomen with mild hazy mesenteric inflammatory changes (3/88-119). No associated mass or significant lymphadenopathy. Small fat-containing left inguinal hernia. This examination was performed in conjunction with a CT of the chest, which will be reported separately. ?? IMPRESSION: 1. No evidence of recurrent or metastatic disease in the abdomen or pelvis. 2. Nonspecific enteritis involving a medium-sized segment of small bowel in the midabdomen likely due to infectious/inflammatory etiology. EXAM: CT CHEST WITH IV CONTRAST COMPARISON: CT chest 07/02/2019 and 03/19/2019. FINDINGS: The tiny nodules in the right lower lobe and left lower lobe that were new on 07/02/2019 have resolved. A small area of clustered micronodularity seen previously in the right middle lobe has also resolved. Additional tiny bilateral pulmonary nodules are unchanged since 03/19/2019. No new nodules. Slight scattered scarring in the lower lungs. Scattered nodes in the chest without adenopathy. Stable small subcutaneous nodule in the upper back in the midline (image 98) Thoracolumbar curve with associated hypertrophic changes in the spine. This examination was performed in conjunction with a CT of the abdomen, which will be reported separately. ?? IMPRESSION: 1. Tiny bilateral pulmonary nodules that were new on 07/02/2019 have resolved. 2. Additional tiny bilateral pulmonary nodules are stable. ASSESSMENT / PLAN #1 Mass Kidney #2 Cancer Breast Family History #3 Cancer Renal Cell Carcinoma Personal History #4 Melanoma Of Skin Cancer Personal History #5 Cancer Skin Family History Mrs.Martha Victoria Willis presented for evaluation of inherited causes for her personal history of chromophobe type renal cell carcinoma. She also had 1 malignant melanoma in-situ without much exposure to sunlight. She also has family history of mother with bilateral breast cancer at 77 years of age, elder sister with a basal cell carcinoma, younger brother with multiple lipomas and a maternal 1st cousin with uterine cancer at 28 years of age. We discussed her phenotype in detail. Given the overall clinical features, the possibility of a classic [place] Shyanne Mechelle syndrome appears less likely. We discussed the options of genetic testing, possible outcome of the test and implications for her management and to the family. In view of absence of classic clinical features of Georgia Shyanne Mechelle syndrome and family history of multiple cancer types, we discussed broader cancer testing panel. She agreed to the same. We ordered a custom panel at [facility] which includes multicancer and extended renalnext panel. We will update her with further recommendations once we have the results available. Given the family history, we recommended both her children have a baseline ultrasound abdomen to look for renal mass and then repeat ultrasounds every 3-5 years in consult with their primary physician,irrespective of the genetic testing results. This recommendation might change to more intensive screening protocol based on the genetic testing results. Mrs. Willis also had excellent questions on carrier screening for galactosemia given the family history of her maternal 1st cousin child passing away with classic galactosemia. Apparently genetic testing for the parents were done, details of which were not available during this encounter. She would discuss with the family regarding the familial variant for which she could be a potential carrier and let us know in the future if she wishes to proceed with carrier testing, in order to know if her next generation need to be concerned regarding this. Discussed in detail with the patient the diagnosis and treatment plan and answered their questions. Patient expressed understanding of the content. Educational materials were provided as appropriate. ASSISTANT documented in this encounter Miscellaneous Notes Addendum Note - Perfecto Shirley M.D. - 03/22/2020 1:00 PM SEO ASSISTANT Addended by: PERFECTO SHIRLEY on: 03/23/2020 07:24 AM Modules accepted: Level of Service ASSISTANT documented in this encounter Plan of Treatment Not on filedocumented as of this encounter Results Cryopreservation for Molecular Genetic Studies (03/22/2020 2:48 PM SEO ASSISTANT) Patholo gist Method Time Signature Comment A DNA specimen has been stored for future genomic studies. 03/29/2020 DT This specimen has been stored at the request of the 11:26 PM SEO ASSISTANT ordering physician for anticipated future testing. In some instances, a portion of the specimen may remain available (by consent) for use by the individual and/or family. This is not a DNA banking service. If detention, guaranteed specimen storage is required, DNA banking should be considered. The Genomic Extraction Core extracted DNA. DNA Volume (microliters): ??500+ Please review the following table to determine the possible number of tests that can be added for send out testing. DNA (ul) ? Possible Send Outs (~120 ul) <100 ? Recommend Redraw 100 ?1 250 ?2 500 ?4 Specimen WB Whole Blood 03/29/2020 DT 11:26 PM SEO ASSISTANT Released By JOEL RAMÍREZ 03/29/2020 DT 11:26 PM SEO ASSISTANT Specimen Anatomical Collection Method Collection Time Receive d Time (Source) Location / / Volume Laterality Varies (Blood, 03/22/2020 2:48 PM 020 3:29 Venous) SEO ASSISTANT PM SEO ASSISTANT Narrative This result has an attachment that is no t available. [facility] GENETIC TESTING Performing Organization Address City/State/ZIP Code Phon e Number [facility] - [address] [place], [place] [address] [place] [address] [facility] [address] documented in this encounter Visit Diagnoses Diagnosis Cancer Renal Cell Carcinoma Personal His tory - Primary Mass Kidney Cancer Breast Family History Melanoma Of Skin Cancer Personal History Cancer Skin Family History Family History Genetic Disorder documented in this encounter
--- OUTSIDE RECORDS SUMMARY | 2022-02-09 08:06 | XMS_ITS | Encounter Summary ---
:1955 Author Organization [facility] Address [address] [place] [address] Care Team Providers Name Role Phone Unavailable Primary Care Provider Unavailable Encounter Details Date Type Department Care Team Description 04/10/2019 Orders Only Department of Urology Mali Middleton Ma ss Kidney (Primary in [place], [place]) [place] [address] [place] [id number] [phone] Social History Tobacco Use Types Packs/Day Years [...] or relatives? How often do you attend alevism or More than 4 times per year 08/15/2021 orthodox services? Do you belong to any clubs or Yes 08/15/2021 organizations such as alevism groups, unions, fraternal or athletic groups, or [...] at Date Recorded Female 05/10/2018 8:56 AM SHORT PIECE HANDLER documented as of this encounter Plan of Treatment Not on filedocumented as of this encounter Results Urinalysis with Microscopic: Urine, Clean Catch (07/02/2019 9:14 AM SHORT PIECE HANDLER) [facility] Method Time Signature Source Midstream 07/02/2019 [facility] 9:14 AM SHORT PIECE HANDLER Appearance Normal Normal 07/02/2019 [facility] 9:44 AM SHORT PIECE HANDLER Osmolality, U 425 150 - 1150 07/02/2019 [facility] mOsm/kg 10:18 AM SHORT PIECE HANDLER pH, U 7.2 4.5 - 8.0 07/02/2019 [facility] 10:18 AM SHORT PIECE HANDLER Comment: ----ADDITIONAL INFORMATION---- This test was developed and its performa nce characteristics determined by [facility] in a manner co nsistent with CLIA requirements. This test has not bee n cleared or approved by the U.S. Food and Drug Admin istration. Glucose 2 0 - 15 mg/dL 07/02/2019 9:44 AM SHORT PIECE HANDLER [facility] Protein, U 5 <26 mg/dL 07/02/2019 9:44 AM SHORT PIECE HANDLER [facility] Comment: ----ADDITIONAL INFORMATION---- On 11/14/2016 the total protein assay me thod changed resulting in approximately a 15% increase in prote in values. Protein/Osmolality 0.12 <0.42 Ratio 07/02/2019 10:18 AM SHORT PIECE HANDLER [facility] Comment: ----ADDITIONAL INFORMATION---- On 11/14/2016 the total protein assay me thod changed resulting in approximately a 15% increase in prote in values. Predicted 24 Hr Protein 96 mg/24 h 07/02/2019 10:18 AM SHORT PIECE HANDLER [facility] Predicted Range 24-388 mg/24 h 07/02/2019 10:18 AM SHORT PIECE HANDLER [facility] Hemoglobin, QL Negative Negative 07/02/2019 10:05 AM SHORT PIECE HANDLER R COLLIN Specimen Anatomical Collection Method Collection Time Receive d Time (Source) Location / / Volume Laterality Urine (Urine, 07/02/2019 9:14 AM 07/02/19 9:14 Clean Catch) SHORT PIECE HANDLER AM SHORT PIECE HANDLER Mali Middleton M.D. LAB URINE ORDERABLES Performing Organization Address City/State/ZIP Code Phon e Number [facility] - [address] [place], [place] [address] [facility] [place] [address] [facility] [address] documented in this encounter Visit Diagnoses Diagnosis Mass Kidney - Primary documented in this encounter
--- OUTSIDE RECORDS SUMMARY | 2022-02-09 08:06 | XMS_ITS | Encounter Summary ---
:1955 Author Organization [facility] Address [address] [place] [address] Care Team Providers Name Role Phone Unavailable Primary Care Provider Unavailable Reason for Referral MRI/CAT/PET Scan (Routine) - Closed Specialty Diagnoses / Procedures Referred By Contact Refer red To Contact Radiology Diagnoses Cancer Renal Cell Carcinoma Personal [facility] Chest with IV Contrast CT Chest without and with IV Contrast C.N.P., D.N.P. [address] [place] [address] [phone] Referral ID Status Reason Start Date Expiration Date Visits Requ ested Visits Authorized [id number] Closed 03/19/2019 03/18/2020 1 1 RI/CAT/PET Scan (Routine) - Modified Order Specialty Diagnoses / Procedures Referred By Contact Refer red To Contact Radiology Diagnoses Cancer Renal Cell Carcinoma Personal History Liana Dallas APRN, [facility] Procedures CT Abdomen Pelvis with IV Contrast CT Abdomen Pelvis without and with IV Contrast C.N.P., D.N.P. [address] [place] [address] [phone] Referral ID Status Reason Start Date Expiration Date Visits V isits Requested Authorized [id number] Modified 03/19/2019 03/18/2020 1 1 Order O MAINTAINER Reason for Visit MRI/CAT/PET Scan (Routine) - Closed Specialty Diagnoses / Procedures Referred By Contact Refer red To Contact Radiology Diagnoses Cancer Renal Cell Carcinoma Personal History Liana Dallas APRN, [place] [facility] Procedures CT Chest with IV Contrast CT Chest without and with IV Contrast C.N.P., D.N.P. [address] [place] [phone] Referral ID Status Reason Start Date Expiration Date Visits Requ ested Visits Authorized [id number] Closed 03/19/2019 03/18/2020 1 1 Encounter Details Date Type Department Care Team Description 07/02/2019 Hospital Encounter Department of Liana Dallas Canc er Renal Cell Radiology, [place], C.N.P., Carcinoma [facility], in D.N.P. History [place], [facility] [address] [place], [place] [address] [place] [phone] [place], [place] [phone] (Work) [phone] Social History Tobacco Use Types Packs/Day Years [...] or relatives? How often do you attend oriental orthodox or More than 4 times per year 08/15/2021 tenriism services? 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 documented as of this encounter Last Filed Vital Signs Vital Sign Reading Time Taken Comments Blood Pressure - - Pulse - - Temperature - - Respiratory Rate - - Oxygen Saturation - - Inhaled Oxygen Concentration - - Weight 78.4 kg (172 lb 13.5 oz) 07/02/2019 10:36 AM RADIO MAINTAINER Height 161.5 cm (5' 3.58) 07/02/2019 10:36 AM RADIO MAINTAINER Body Mass Index 30.06 07/02/2019 10:36 AM RADIO MAINTAINER documented in this encounter Medications at Time of Discharge Medication Sig Dispensed Refills Start Date End Date cephalexin (KEFLEX) 500 mg TK 1 C PO BID FOR 0 02/25/2020 capsule 10 DAYS lisinopril Take 5 mg by mouth 4 04/13/20182019 (PRINIVIL,ZESTRIL) 5 mg every morning. tablet multivitamin (DAILY Take 1 tablet by 0 04/06/2010 06/30/2020 MULTIPLE) tablet mouth every morning. documented as of this encounter Nursing Notes Rufina Cornejo, RJenniferN. - 07/02/2019 11:15 AM CST A review of the patients current medications was completed under the context of radiology care priorto contrast/medication administration. O MAINTAINER documented in this encounter Plan of Treatment Not on filedocumented as of this encounter Procedures Procedure Name Priority Date/Time Associated Comments Diagnosis CT ABDOMEN PELVIS RAD - Routine 07/02/2019 11:15 Cancer Renal Cell Results for this WITH IV CONTRAST (most inpatients AM RADIO MAINTAINER Carcinoma procedu re are in and all Personal History the results outpatients) section. CT CHEST WITH IV RAD - Routine 07/02/2019 11:15 Cancer Renal Cell R esults for this CONTRAST (most inpatients AM RADIO MAINTAINER Carcinoma procedure a re in and all Personal History the results outpatients) section. documented in this encounter Results CT Chest with IV Contrast (07/02/2019 11:15 AM RADIO MAINTAINER) Anatomical Region Laterality Modality Chest, Thoracic RST LOS, Thoracic ARZ N/A Co mputed Tomography, Computed LOS, Thoracic ARZ LOS, Thoracic FLA Kevin graphy LOS Specimen (Source) Anatomical Collection Method Collection Time Re ceived Time Location / / Volume Laterality 07/02/2019 11:40 AM RADIO MAINTAINER Impressions 07/02/2019 11:55 AM RADIO MAINTAINER 1. New tiny solid noncalcified 1-2 mm bilateral lower lobe nodules, detailed in findings. 2. Other previously described solid nonc alcified tiny nodules are either stable or have resolved. 3. The 6 x 8 mm subcutaneous nodule in t he back at the T3 level has decreased in size, detailed in findings. 4. Slightly clustered small area of nodu larity in the periphery of the right middle lobe is more conspicuous on the c urrent exam, likely of infectious/inflammatory etiology. Simila r lower lobe predominant cylindrical bronchiectasis, could be sequelae of rec urrent infections/inflammation. Narrative 07/02/2019 11:55 AM RADIO MAINTAINER EXAM: CT CHEST WITH IV CONTRAST No 3D post-processing performed. COMPARISON: Multiple chest CTs from 04/20 ?to 03/19/2019 ? FINDINGS: There is a new solid noncalcif ied 1-2 mm central left lower lobe nodule on image 457 of series 2. ?Th ere is a new solid noncalcified 1-2 mm right lower lobe nodule center on image 42 of series 2. The 2 mm solid noncalcified peripheral right upper lobe nodule on image 145 of series 2 has been stable since 2018. The 2 mm solid n oncalcified anterior right upper lobe nodule on image 101 of series 2 has been stable since 10/10/2018, not seen in 2019. A 2 mm solid noncalcified inferior central right upper lobe nodule on image 278 of series 2 has been stable si nce 2018. The 3 x 5 mm solid noncalcified peripheral right middle lob e nodule on image 322 of series 2 has been stable since 2018, the adjacent rig ht middle lobe peripheral nodule on image 329 of series 2 has been stable si nce 2018 as well. Slightly clustered small area of nodularity in the peripher y of the right middle lobe on images 375-381 of series 2 is more conspicuous on the current exam, likely of infectious/inflammatory etiology. A 1-2 mm solid noncalcified anterior peripheral right lower lobe nodule on im age 376 of series 2 has been stable since 2018 as well. Otherwise the multip le bilateral solid noncalcified tiny pulmonary nodules described previously h ave resolved. Lower lobe predominant mild cylindrical bronchiectasis and scar ring are again identified. The central tracheal bronchial tree is patent. No pl eural effusion or thickening identified. Shotty subcentimeter nodes without thora cic adenopathy by size criteria. Tiny pericardial effusion is stable, wit hin physiologic limits. Borderline sliding esophageal hiatal her jordan is again visualized. Mild levocurvature and degenerative puckett ges of the spine are again visualized. The 6 x 8 mm subcutaneous nodule in the back at T3 level on image 81 of series 2 has decreased from prior measurements of 10 x 11 mm, likely a cyst. Remainder of the thoracic exam is unrema rkable. Thank you for the consultation. This examination was performed in conjun ction with a CT of the abdomen, which will be reported separately. Procedure Note Lai Cavazos M.D. - 07/02/2019Formattin g of this note might be different from the original. EXAM: CT CHEST WITH IV CONTRAST No 3D post-processing performed. COMPARISON: Multiple chest CTs from 04/20 to 03/19/2019 FINDINGS: There is a new solid noncalcif ied 1-2 mm central left lower lobe nodule on image 457 of series 2. There i s a new solid noncalcified 1-2 mm right lower lobe nodule center on image 42 of series 2. The 2 mm solid noncalcified peripheral right upper lobe nodule on image 145 of series 2 has been stable since 2018. The 2 mm solid n oncalcified anterior right upper lobe nodule on image 101 of series 2 has been stable since 10/10/2018, not seen in 2019. A 2 mm solid noncalcified inferior central right upper lobe nodule on image 278 of series 2 has been stable si nce 2018. The 3 x 5 mm solid noncalcified peripheral right middle lob e nodule on image 322 of series 2 has been stable since 2018, the adjacent rig ht middle lobe peripheral nodule on image 329 of series 2 has been stable si nce 2018 as well. Slightly clustered small area of nodularity in the peripher y of the right middle lobe on images 375-381 of series 2 is more conspicuous on the current exam, likely of infectious/inflammatory etiology. A 1-2 mm solid noncalcified anterior peripheral right lower lobe nodule on im age 376 of series 2 has been stable since 2018 as well. Otherwise the multip le bilateral solid noncalcified tiny pulmonary nodules described previously h ave resolved. Lower lobe predominant mild cylindrical bronchiectasis and scar ring are again identified. The central tracheal bronchial tree is patent. No pl eural effusion or thickening identified. Shotty subcentimeter nodes without thora cic adenopathy by size criteria. Tiny pericardial effusion is stable, wit hin physiologic limits. Borderline sliding esophageal hiatal her jordan is again visualized. Mild levocurvature and degenerative puckett ges of the spine are again visualized. The 6 x 8 mm subcutaneous nodule in the back at T3 level on image 81 of series 2 has decreased from prior measurements of 10 x 11 mm, likely a cyst. Remainder of the thoracic exam is unrema rkable. Thank you for the consultation. This examination was performed in conjun ction with a CT of the abdomen, which will be reported separately. IMPRESSION: 1. New tiny solid noncalcified 1-2 mm bi lateral lower lobe nodules, detailed in findings. 2. Other previously described solid nonc alcified tiny nodules are either stable or have resolved. 3. The 6 x 8 mm subcutaneous nodule in t he back at the T3 level has decreased in size, detailed in findings. 4. Slightly clustered small area of nodu larity in the periphery of the right middle lobe is more conspicuous on the c urrent exam, likely of infectious/inflammatory etiology. Simila r lower lobe predominant cylindrical bronchiectasis, could be sequelae of rec urrent infections/inflammation. Liana Dallas SPACE CONTROL AGENT, C.N.P., D.N.P. IMG CT PROCEDURES CT Abdomen Pelvis with IV Contrast (07/02/2019 11:15 AM RADIO MAINTAINER) Anatomical Region Laterality Modality Abdomen, Pelvis, Abdominal RST LOS, N/A Comp uted Tomography, Computed Abdominal ARZ LOS, Abdominal FLA LOS Iron ography Specimen (Source) Anatomical Collection Method Collection Time Re ceived Time Location / / Volume Laterality 07/02/2019 12:07 PM RADIO MAINTAINER Impressions 07/02/2019 12:27 PM RADIO MAINTAINER No evidence of residual or recurrent dis ease. Narrative 07/02/2019 12:27 PM RADIO MAINTAINER EXAM: ??CT ABDOMEN PELVIS WITH IV CONTRAST COMPARISON: ??03/09/[address] FINDINGS: ??Postoperative changes from p artial right nephrectomy. Unchanged small low-attenuation lesion at the right kidn ey, likely a small cyst. Scattered small lymph nodes in the abdom en and pelvis. Patent renal vessels. Hepatic cysts and small hemangiomas. Spl enule. Hysterectomy. Mild degenerative changes of the visualized spine and pelv ic bones. The study was performed in conjunction w ith a chest CT, which will be reported separately. Procedure Note Cony Becerra M.D. - 07/02/2019Formatti ng of this note might be different from the original. EXAM: CT ABDOMEN PELVIS WITH IV CONTRAST COMPARISON: 03/09/[address] FINDINGS: Postoperative changes from par tial right nephrectomy. Unchanged small low-attenuation lesion at the right kidn ey, likely a small cyst. Scattered small lymph nodes in the abdom en and pelvis. Patent renal vessels. Hepatic cysts and small hemangiomas. Spl enule. Hysterectomy. Mild degenerative changes of the visualized spine and pelv ic bones. The study was performed in conjunction w ith a chest CT, which will be reported separately. IMPRESSION: No evidence of residual or recurrent dis ease. Liana Dallas APRN, C.N.P., D.N.P. IMG CT PROCEDURES documented in this encounter Visit Diagnoses Diagnosis Cancer Renal Cell Carcinoma Personal His tory documented in this encounter Administered Medications Inactive Administered Medications - up to 3 most recent administrations Medication Order MAR Action Action Date Dose Rate Site iohexoL 300 mg iodine/mL solution Given 07/02/2019 11:06 AM RADIO MAINTAINER 140 mL 1-200 mL (OMNIPAQUE) 1-200 mL, intravenous, Once in imaging, contrast, Starting on Sun07/02/19 at 1036, For 1 dose, Imaging Protocol Orders, Dose per Radiant Medication Guidelines sodium chloride (PF) 0.9 % injection 1-1 00 mL Given 07/02/2019 11:06 AM RADIO MAINTAINER 50 mL 1-100 mL, intravenous, Once, On Sun07/02/19 at 1045, For 1 dose, Imaging Protocol Orders documented in this encounter
--- OUTSIDE RECORDS SUMMARY | 2022-02-09 08:06 | XMS_ITS | Encounter Summary ---
:1955 Author Organization [facility] Address [address] [place] [address] Care Team Providers Name Role Phone Unavailable Primary Care Provider Unavailable Reason for Referral Appointment Request (Routine) - Closed Specialty Diagnoses / Procedures Referred By Contact Refer red To Contact Diagnoses Chronic Kidney Disease (CKD), Stage 3 Unspecified (HCC) Tramaine Hope M.D. Procedures Uric Acid [address] [place] [phone] Referral ID Status Reason Start Date Expiration Date Visits Requ ested Visits Authorized [id number] Closed 10/21/2020 10/21/2021 1 1 Reason for Visit Reason Comments Kidney Mass Outpatient (Routine) - Closed Specialty Diagnoses / Procedures Referred By Contact Refer red To Contact Nephrology and Diagnoses Mass Kidney Boy Martinez, [facility] Hypertension De [address] [place] [phone] Referral ID Status Reason Start Date Expiration Date Visits V isits Requested Authorized [id number] Closed Specialty 01/16/2020 01/15/2021 1 1 Services Required Encounter Details Date Type Department Care Team Description 02/25/2020 Comprehensive Visit Division of Jayy Chronic Kidney Nephrology and De Redd Disease (CKD), Stage Hypertension in [address] [facility] 3 Unspecified (HCC) [place], [place] [address] [facility] [address] [place], [place] [phone] (Work) [phone] Social History Tobacco Use Types Packs/Day Years [...] at Date Recorded Female 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 - 02/25/2020 9:45 AM CDT Subjective: Chief Complaint/Reason for Visit No chief complaint on file. Karyan Willis is a 64 y.o. female who presents for evaluation of the following concerns: History of Present Illness: There are no diagnoses linked to this encounter. Review of Systems Constitutional: Positive for fatigue. Eyes: Positive for visual problems. Cardiovascular: Positive for rapid or fluttering heart beat. Gastrointestinal: Positive for diarrhea. The following systems were negative: Skin, ENT, Respiratory, , Hematologic, Musculoskeletal, Neuro, Psych Objective: Physical Exam Assessment/Plan: There are no diagnoses linked to this encounter. documented in this encounter Consult Notes Tramaine Hope M.D. - 02/25/2020 9:45 AM CDT Referring Provider: Boy Martinez M.D. SUBJECTIVE REASON FOR CONSULT HISTORY OF PRESENT ILLNESS Ms. Willis is a 64 y.o. female who presents rising creatinine. Patient [...] to 12 lb over last 6 months. Current Outpatient Medications: ??? lisinopriL (PRINIVIL,ZESTRIL) 2.5 mg tablet, Take 2.5 mg by mouth daily., Disp: , Rfl: ??? multivitamin (DAILY MULTIPLE) tablet, Take 1 tablet by mouth every morning. , Disp: , Rfl: Current Facility-Administered Medications: ??? xfankgztely-wvaebhqcm-AMPVVJLzjhg 0.25%-1%-1:200,000 injection 2-50 mL, 2-50 mL, infiltration, [...] heart beat. Gastrointestinal: Positive for diarrhea. Musculoskeletal: Negative for arthralgias and pain or stiffness in the joints. The following systems were negative: Skin, ENT, Respiratory, , Hematologic, Musculoskeletal, Neuro, Psych OBJECTIVE BP 127/74 (BP Location: Right arm, Patient Position: Sitting) Pulse (!) 57 Temp 36.1 ??C Ht 161.5 cm Wt 73.1 kg BMI 28.03 kg/m?? PHYSICAL EXAMINATION Constitutional Appearance: Normal appearance. HENT Head: Normocephalic. Mouth/Throat: Mouth: Mucous membranes are moist. Eyes Pupils: Pupils are equal, round, and reactive to light. Cardiovascular Rate and Rhythm: Normal rate and regular rhythm. Pulmonary Effort: Pulmonary effort is normal. Breath sounds: Normal breath sounds. Abdominal General: Abdomen is flat. Tenderness: There is no abdominal tenderness. Musculoskeletal [...] Kidney Disease (CKD), Stage 3 Unspecified (HCC) Patient loss some kidney function after the right partial nephrectomy. Prior to this surgery her creatinines were 0.9 to 1.0. It increased further in December. Because of this is unclear. I suspect that this is mostly hemodynamics. I am going to ask Dr. Jansen to review her biopsy for renal vascular disease. I explained to her that being on lisinopril will accentuate the change in creatinine. However,if she does have renal vascular disease, Javier inhibitors are the best antihypertensive for her. Will plan to see her back in 1 year. We discussed about the use of IV contrast. At her current kidney function, her risks is only slightly elevated. Thus if it is clinically indicated, she should have IV contrast. She should receive IV hydration prior as a prophylaxis. 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 I have asked Dr. Khan to weigh in. Tramaine Hope M.D. documented in this encounter Plan of Treatment Not on filedocumented as of this encounter Results Urinalysis with Microscopic: Urine, Midstream (01/06/2021 7:44 AM CDT) Patholo gist Method Time Signature Source Urine, Urine, 01/06/2021 [...] M.D. LAB URINE ORDERABLES Performing Organization Address City/[facility] Phon e Number [facility] - [address] [place], [place] [phone] [place] [address] (ABNORMAL) Uric Acid (01/06/2021 7:34 AM CDT) athologist Signature Uric Acid, S 6.3 (H) 2.7 - 6.1 01/06/2021 DTL mg/dL 9:17 AM CDT Specimen Anatomical Collection Method Collection Time Receive d Time (Source) Location / / Volume Laterality Blood (Blood, 01/06/2021 7:34 AM 01/07/20 7:56 Venous) CDT AM CDT Tramaine Hope M.D. LAB BLOOD ADD-ON Performing Organization Address City/[facility] Phon e Number [facility] - [address] [place], [place] [address] [place] [address] CBC with Differential, Blood (01/06/2021 7:34 AM CDT) athologist Signature Hemoglobin 13.4 11.6 - 01/06/2021 [...] City/State/ZIP Code Phon e Number [facility] - [address] [place], [place] [address] [facility] [place] [address] [facility] [address] [facility] (ABNORMAL) Comprehensive Metabolic Panel (01/06/2021 7:34 AM CDT) Analysis Performed At Patho logist Time Signature Potassium, S 4.2 3.6 - [...] 01/06/2021 DTL Black/ mL/min/BSA 9:24 AM CDT Austrian Comment: ----ADDITIONAL INFORMATION---- Estimated GFR calculated using [...] City/State/ZIP Code Phon e Number [facility] - [address] [place], [place] [address] [facility] [place] [address] [facility] [address] documented in this encounter Visit Diagnoses Diagnosis Chronic Kidney Disease (CKD), Stage 3 Un specified (HCC) documented in this encounter
--- OUTSIDE RECORDS SUMMARY | 2022-02-09 08:06 | XMS_ITS | Encounter Summary ---
:1955 Author Organization [facility] Address [address] [place] [address] Care Team Providers Name Role Phone Unavailable Primary Care Provider Unavailable Reason for Visit Reason Comments Edema Outpatient (Routine) - Closed Specialty Diagnoses / Referred By Contact Referred To Contact Procedures Physical Medicine and Diagnoses Edema Lower Extremity Mali Gonzalez, [facility] De, Ph.D. [address] [place] [phone] Referral ID Status Reason Start Date Expiration Date Visits Requ ested Visits Authorized [id number] Closed 04/08/2019 04/07/2020 1 1 Encounter Details Date Type Department Care Team Description 07/02/2019 Comprehensive Visit Department of Physical Depompolo, Edema Lower Medicine and Yonis Tapia M.D. Extremity Rehabilitation in [address] [place] [address] [place] [phone] [place], [place] [phone] (Work) [phone] Social History Tobacco Use Types Packs/Day Years [...] More than 4 times per year 08/15/2021 yazidism services? Do you belong to any clubs [...] at Date Recorded Female 05/10/2018 8:56 AM PLATE DRILLER documented as of this encounter Last Filed Vital Signs Vital Sign Reading Time Taken Comments Blood Pressure - - Pulse - - Temperature - - Respiratory Rate - - Oxygen Saturation - - Inhaled Oxygen Concentration - - Weight 78.4 kg (172 lb 13.5 oz) 07/02/2019 7:00 AM PLATE DRILLER Height 161.5 cm (5' 3.58) 07/02/2019 7:00 AM PLATE DRILLER Body Mass Index 30.06 07/02/2019 7:00 AM PLATE DRILLER documented in this encounter Consult Notes Yonis Thomas M.D. - 07/02/2019 8:00 AM CST SUBJECTIVE REQUESTING PROVIDER Mali Gonzalez M.D., Ph.D. REASON FOR CONSULT Edema of the legs HISTORY OF PRESENT ILLNESS Karyna Willis is a 64 y.o. female who presents with lower extremity swelling. This patient presently is being treated for renal cell carcinoma involving the right kidney that ledto a partial right nephrectomy in June 2018. She also has had melanoma in situ. The [facility] was asked to see the patient regarding lower extremity swelling. It appears she 1st started noticing this lower extremity swelling several years ago. In fact [place] when [place] 1[place] was evaluated for such and ultrasounds were done to rule out blood clots. She was told that she should subsequently use compression hose when she is up and ambulating and has done so. Initially the swelling was on the left but over time she now notes swelling in both lower extremities. She does not exactly know when these things started but they have been present for at least several years. She denies knowing any trauma or precipitating event for the swelling. She has never had any abdominal radiation or injuries. When she had a nephrectomy but they did no lymph adenectomy. The edema does worsen with dependent positioning and improves with elevation. She uses bilateral thigh-high class one compression stockings which do help to some extent. The patient denies any pain or discomfort in the lower extremities. Her last ultrasounds of the legswere done in 2018 and were negative for blood clot. She has never had hemodynamic studies. She has never had a lymphoscintigraphy. She has had CT of the abdomen and pelvis showing no obstructive pathology or pelvic lymphadenopathy. Given her cancer diagnosis she is scheduled to have further imaging today. The patient does not give any history of significant thyroid or liver disease. Laboratory studies have shown no evidence of such. The patient denies any chest pain or palpitations. She has had an echocardiogram done in 2015. She also reports a stress test having been done several years ago. She denies any change in bowel or bladder function. She has had no unexplained weight loss. The following portions of the patient's history were reviewed and updated as appropriate: allergies,current medications, medical history, social history, surgical history and problem list. REVIEW OF SYSTEMS I have briefly reviewed the Review of Systems as noted on the Health history form. I am only responding to those symptoms which are directly relevant to the specific indication for my consultation. Bladder function: No complaint Bowel function: No complaint Cognitive abilities: No complaint Mood: No complaint PAST MEDICAL/SURGICAL HISTORY 1. Renal cell carcinoma involving the right kidney diagnosed in June 2018 2. Status post partial right nephrectomy on July 02, 2018 3. Multiple liver lesions of unclear etiology 4. Anemia 5. Colon polyp 6. Vitamin-D deficiency 7. Cataract 8. Gastroesophageal reflux disease 9. Umbilical hernia 10. Hypertension 11. Melanoma of the face 12. Status post hysterectomy in 2004 13. Status post hernia repair 14. Multiple pulmonary nodules that are new 15. Right thigh swelling SOCIAL HISTORY The patient is with supportive spouse. 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 Her is a retired ferry pilot who works for [employer]. They have a couple of adult children. OBJECTIVE PHYSICAL EXAM General: A well-developed, well-nourished female no acute distress. Her BMI is 30.1 Mental status: Alert, oriented, with normal mood and affect. Gait/gross motor: Symmetric stable gait. Strength: Normal for age in the lower extremities. Reflexes: Normal muscle tone in the legs. Joint range of motion: Functional range of the peripheral joints of lower extremities without pain or discomfort. Palpation: Nontender to palpating the thigh or calf area. Skin: No open wounds or lesions of the legs. Cardiovascular: Nonpitting edema of the legs. No Stemmer sign. Her leg circumferential measurements today does show the right side to be slightly larger than the left but marginally so. There is no erythema, increased warmth, or induration noted. Respiratory: No dyspnea. DIAGNOSTICS I have reviewed labs, CT and ultrasound. ASSESSMENT / PLAN #1 Renal cell carcinoma The patient is status post partial nephrectomy on the right in June of 2018. She has follow-up CT imaging of the chest and abdomen pending. #2 Melanoma in situ And this was recently resected from the left facial area. #3 Bilateral, right greater than left leg swelling This seems chronic in nature. She has been evaluated for blood clots with ultrasound and found to benegative. She has also had previous imaging of the abdomen and pelvis noting no obstructive pathology. She does have further testing for such today. Previous laboratory studies suggest no significant liver or thyroid dysfunction. Given the asymmetry of the swelling it is unlikely to be a systemic cause. At this point, I suspect the swelling may be a combination of venous insufficiency and lymphedema.I had a long discussion with the patient about further workup if she were interested. We could certainly do hemodynamic studies of the legs to see if there is a venous insufficiency that is contributing to the edema. We also could repeat the echocardiogram to assure there is no cardiac component though there is no evidence of such. We also could do lymphoscintigraphy to see if this is more lymphatic in nature. The patient is not interested in pursuing further workup for the swelling and would prefer continuing the use of her class one thigh-high compression stockings coupled with returning to a weight loss diet and exercise. Therefore, I did not pursue any further studies at this point and the patient was not interested in seeing one of our lymphedema therapists. Follow-up: The patient will contact me if she does wish to pursue any further workup of the edema or involvement with our Lymphedema Clinic. E DRILLER documented in this encounter Plan of Treatment Not on filedocumented as of this encounter Visit Diagnoses Diagnosis Edema Lower Extremity documented in this encounter
--- OUTSIDE RECORDS SUMMARY | 2022-02-09 08:06 | XMS_ITS | Encounter Summary ---
:1955 Author Organization [facility] Address [address] [place] [address] Care Team Providers Name Role Phone Unavailable Primary Care Provider Unavailable Encounter Details Date Type Department Care Team Description 07/02/2019 Hospital Encounter Department of Celena, Zoila Chapman er Renal Cell Carcinoma Personal History; Laboratory Medicine MUSIC VIDEO DIRECTOR, C.N.P., Follow Up Exam and Pathology, D.N.PJennifer [address] [phone] [place] [address] [place], [place] (Work) [phone] Social History Tobacco Use Types Packs/Day Years [...] or relatives? How often do you attend anglican or More than 4 times per year 08/15/2021 samaritan services? Do you belong to any clubs or Yes 08/15/2021 organizations such as anglican groups, unions, fraternal or athletic groups, or [...] at Date Recorded Female 05/10/2018 8:56 AM SELLING SPECIALIST documented as of this encounter Medications at [...] every morning. documented as of this encounter Plan of Treatment Not on filedocumented as of this encounter Procedures Procedure Name Priority Date/Time Associated Diagnosis Comme nts FERRITIN, S Routine 07/02/2019 8:23 AM Follow Up Exam Results for this SELLING SPECIALIST procedure are i n the results section. BASIC METABOLIC Routine 07/02/2019 8:23 AM Cancer Renal Cell R esults for this PANEL, S/P SELLING SPECIALIST Carcinoma Personal procedure are in History the results section. documented in this encounter Results Ferritin (07/02/2019 8:23 AM SELLING SPECIALIST) athologist Signature Ferritin, S 13 11 - 307 07/02/2019 DTL mcg/L 10:08 AM SELLING SPECIALIST Specimen Anatomical Collection Method Collection Time Receive d Time (Source) Location / / Volume Laterality Blood (Blood, 07/02/2019 8:23 AM 07/02/19 20 8:42 Venous) SELLING SPECIALIST AM SELLING SPECIALIST Mali Gonzalez M.D., Ph.D. LAB BLOOD ADD-ON Performing Organization Address City/State/ZIP Code Phon e Number [facility] - 200 [place], [place] [address] [facility] [place] [address] [facility] [address] [facility] (ABNORMAL) Basic Metabolic Panel (07/02/2019 8:23 AM SELLING SPECIALIST) Analysis Performed At Patho logist Time Signature Potassium, S 4.2 3.6 - 5.2 07/02/2019 DTL mmol/L 9:55 AM SELLING SPECIALIST Sodium, S 144 135 - 145 07/02/2019 DTL mmol/L 9:55 AM SELLING SPECIALIST Chloride, S 106 98 - 107 07/02/2019 DTL mmol/L 9:55 AM SELLING SPECIALIST Bicarbonate, S 26 22 - 29 07/02/2019 DTL mmol/L 9:55 AM SELLING SPECIALIST Anion Gap 12 7 - 15 07/02/2019 DTL 9:55 AM SELLING SPECIALIST BUN (Blood Urea 17 6 - 21 07/02/2019 DTL Nitrogen), S mg/dL 9:55 AM SELLING SPECIALIST Creatinine 1.11 (H) 0.59 - 07/02/2019 DTL 1.04 mg/dL 9:55 AM SELLING SPECIALIST eGFR-Non 52 (L) >=60 07/02/2019 DTL Black/ mL/min/BSA 9:55 AM SELLING SPECIALIST [place] Comment: ----ADDITIONAL INFORMATION---- Estimated GFR calculated using the 2009 CKD_EPI creatinine equation. eGFR-Black/ 60 >=60 mL/min/BSA 2019 9:55 AM SELLING SPECIALIST DTL Comment: ----ADDITIONAL INFORMATION---- Estimated GFR calculated using the 2009 CKD_EPI creatinine equation. Calcium, Total, S 9.2 8.8 - 10.2 mg/dL 07/02/2019 9:55 AM SELLING SPECIALIST DTL Glucose, S 83 70 - 140 mg/dL 07/02/2019 9:55 AM SELLING SPECIALIST D TL Specimen Anatomical Collection Method Collection Time Receive d Time (Source) Location / / Volume Laterality Blood (Blood, 07/02/2019 8:23 AM 07/02/19 20 8:42 Venous) SELLING SPECIALIST AM SELLING SPECIALIST Liana Dallas APRN, C.N.P., D.N.P. LAB BLOOD ADD-ON Performing Organization Address City/State/ZIP Code Phon e Number [facility] - [address] [place], [place] [address] [facility] [place] [address] [facility] [address] documented in this encounter Visit Diagnoses Diagnosis Cancer Renal Cell Carcinoma Personal His tory Follow Up Exam documented in this encounter
--- OUTSIDE RECORDS SUMMARY | 2022-02-09 08:06 | XMS_ITS | Encounter Summary ---
:1955 Author Organization [facility] Address [address] [place] [address] Care Team Providers Name Role Phone Unavailable Primary Care Provider Unavailable Reason for Visit Reason Comments sending images Encounter Details Date Type Department Care Team Description 01/14/2020 Clinical Communication Department of Jabaripillo, send ing images Urology in Edy Wagoner M.D. [place], [place] [address] [facility] [address] [place] [phone] Social History Tobacco Use Types Packs/Day Years [...] or relatives? How often do you attend hoahaoism or More than 4 times per year 08/15/2021 spiritism services? Do you belong to any clubs or Yes 08/15/2021 organizations such as hoahaoism groups, unions, fraternal or athletic groups, or [...] at Date Recorded Female 05/10/2018 8:56 AM FINANCIAL SALES ASSISTANT documented as of this encounter Miscellaneous Notes Telephone Encounter - Apple Hernandez - 01/14/2020 9:47 AM CDT Mrs. Karyna Willis calls and requests that her 01/07/20 CT abdomen/pelvis/chest be mailed to Dr. Jenelle Orozco, [address] [place] [address] The request has been submitted to Radiology to have the images sent. documented in this encounter Plan of Treatment Not on filedocumented as of this encounter Visit Diagnoses Not on filedocumented in this encounter
--- OUTSIDE RECORDS SUMMARY | 2022-02-09 08:06 | XMS_ITS | Encounter Summary ---
:1955 Author Organization [facility] Address [address] [place] [address] Care Team Providers Name Role Phone Unavailable Primary Care Provider Unavailable Encounter Details Date Type Department Care Team Description 07/02/2019 Hospital Encounter Department of Mali Middleton M.D. [facility] Medicine [address] [facility] [place] [phone] [place], [place] [address] [place] [address] [place] [phone] Social History Tobacco Use Types Packs/Day [...] or relatives? How often do you attend restoration or More than 4 times per year 08/15/2021 orthodox services? Do you belong to any clubs or Yes 08/15/2021 organizations such as restoration groups, unions, fraternal or athletic groups, or [...] at Date Recorded Female 05/10/2018 8:56 AM BANANA ROOM CUTTER documented as of this encounter Medications at [...] Date/Time Associated Comments Diagnosis MICROSCOPIC AUTOMATED Routine 07/02/2019 9:14 AM Results for this BANANA ROOM CUTTER procedure are i n the results section. URINALYSIS WITH Routine 07/02/2019 9:14 AM Mass Kidney Result s for this MICROSCOPIC BANANA ROOM CUTTER procedure are i n the results section. documented in this encounter Results Microscopic Automated (07/02/2019 9:14 AM BANANA ROOM CUTTER) P athologist Signature Microscopy Normal 07/02/2019 [facility] 10:05 AM BANANA ROOM CUTTER Specimen Anatomical Collection Method Collection Time Receive d Time (Source) Location / / Volume Laterality Urine 07/02/2019 9:14 AM 0 9:14 BANANA ROOM CUTTER AM BANANA ROOM CUTTER Mali Middleton M.D. LAB URINE ORDERABLES Performing Organization Address City/State/ZIP Code Phon e Number [facility] - [address] [place] [phone] [facility] [place] [address] [facility] [address] Urinalysis with Microscopic: Urine, Clean Catch (07/02/2019 9:14 AM BANANA ROOM CUTTER) [facility] Method Time Signature Source Midstream 07/02/2019 [facility] 9:14 AM BANANA ROOM CUTTER Appearance Normal Normal 07/02/2019 [facility] 9:44 AM BANANA ROOM CUTTER Osmolality, U 425 150 - 1150 07/02/2019 [facility] mOsm/kg 10:18 AM BANANA ROOM CUTTER pH, U 7.2 4.5 - 8.0 07/02/2019 [facility] 10:18 AM BANANA ROOM CUTTER Comment: ----ADDITIONAL INFORMATION---- This test was developed and its performa nce characteristics determined by [facility] in a manner co nsistent with CLIA requirements. This test has not bee n cleared or approved by the U.S. Food and Drug Admin istration. Glucose 2 0 - 15 mg/dL 07/02/2019 9:44 AM BANANA ROOM CUTTER [facility] Protein, U 5 <26 mg/dL 07/02/2019 9:44 AM BANANA ROOM CUTTER [facility] Comment: ----ADDITIONAL INFORMATION---- On 11/14/2016 the total protein assay me thod changed resulting in approximately a 15% increase in prote in values. Protein/Osmolality 0.12 <0.42 Ratio 07/02/2019 10:18 AM BANANA ROOM CUTTER CASS Comment: ----ADDITIONAL INFORMATION---- On 11/14/2016 the total protein assay me thod changed resulting in approximately a 15% increase in prote in values. Predicted 24 Hr Protein 96 mg/24 h 07/02/2019 10:18 AM BANANA ROOM CUTTER CASS Predicted Range 24-388 mg/24 h 07/02/2019 10:18 AM BANANA ROOM CUTTER C[facility] Hemoglobin, QL Negative Negative 07/02/2019 10:05 AM BANANA ROOM CUTTER R COLLIN Specimen Anatomical Collection Method Collection Time Receive d Time (Source) Location / / Volume Laterality Urine (Urine, 07/02/2019 9:14 AM 07/02/19 9:14 Clean Catch) BANANA ROOM CUTTER AM BANANA ROOM CUTTER Mali Middleton M.D. LAB URINE ORDERABLES Performing Organization Address City/State/ZIP Code Phon e Number [facility] - 200 [place], [place] [address] [facility] [place] [address] [facility] [address] documented in this encounter Visit Diagnoses Diagnosis Mass Kidney documented in this encounter
--- OUTSIDE RECORDS SUMMARY | 2022-02-09 08:06 | XMS_ITS | Encounter Summary ---
:1955 Author Organization [facility] Address [address] [place] [address] Care Team Providers Name Role Phone Unavailable Primary Care Provider Unavailable Reason for Visit Outpatient (Routine) - Closed Specialty Diagnoses / Procedures Referred By Contact Refer red To Contact Laboratory Medicine and Diagnoses Cancer Renal Cell Carcinoma Personal History Cancer Renal Cell Carcinoma Personal History Lois Dugan, Rst Lab R ohi Cl C Pathology / Laboratory Procedures BASIC METABOLIC PANEL, S/P CBC WITHOUT DIFFERENTIAL, B LAB TEST BLOOD R.N. [address] [place] [address] Phone: Referral ID Status Reason Start Date Expiration Date Visits Requ ested Visits Authorized [id number] Closed 01/07/2020 01/06/2021 1 1 Encounter Details Date Type Department Care Team Description 01/07/2020 Hospital Encounter Department of Lois Dugan Cancer Renal Cell Laboratory Medicine A, R.N. Carcinom a Personal and Pathology, History [facility] in [place], [place] [address] [place] [phone] Social History Tobacco Use Types Packs/Day Years [...] or relatives? How often do you attend religion or More than 4 times per year 08/15/2021 temple services? Do you belong to any clubs or Yes 08/15/2021 organizations such as religion groups, unions, fraternal or athletic groups, or [...] at Date Recorded Female 05/10/2018 8:56 AM ECONOMIC DEVELOPMENT MANAGER documented as of this encounter Medications [...] Name Priority Date/Time Associated Diagnosis Comme nts CBC WITHOUT Routine 01/07/2020 9:15 AM Cancer Renal Cell Resu lts for this DIFFERENTIAL, B CDT Carcinoma Personal proced ure are in History the results section. BASIC METABOLIC Routine 01/07/2020 9:15 AM Cancer Renal Cell R esults for this PANEL, S/P CDT Carcinoma Personal procedure are in History the results section. documented in this encounter Results CBC without Differential (01/07/2020 9:15 AM CDT) P athologist Signature Hemoglobin 14.3 11.6 - 01/07/2020 DTL 15.0 g/dL 10:05 AM CDT Hematocrit 42.4 35.5 - 01/07/2020 DTL 44.9 % 10:05 AM CDT Erythrocytes 4.83 3.92 - 01/07/2020 DTL 5.13 10:05 AM CDT x10(12)/L MCV 87.8 78.2 - 01/07/2020 DTL 97.9 fL 10:05 AM CDT RBC Distrib Width 13.2 12.2 - 01/07/2020 DTL 16.1 % 10:05 AM CDT Platelet Count 167 157 - 371 01/07/2020 DTL x10(9)/L 10:05 AM CDT Leukocytes 4.7 3.4 - 9.6 01/07/2020 DTL x10(9)/L 10:05 AM CDT Specimen Anatomical Collection Method Collection Time Receive d Time (Source) Location / / Volume Laterality Blood (Blood, 01/07/2020 9:15 AM 01/07/20 9:54 Venous) CDT AM CDT Lois Dugan R.N. LAB BLOOD ADD-ON Performing Organization Address City/State/ZIP Code Phon e Number [facility] - [address] [place], [place] [address] [facility] [place] [address] [facility] [address] (ABNORMAL) Basic Metabolic Panel (01/07/2020 9:15 AM CDT) Analysis Performed At Patho logist Time Signature Potassium, S 4.6 3.6 - 5.2 01/07/2020 DTL mmol/L 10:29 AM CDT Sodium, S 145 135 - 145 01/07/2020 DTL mmol/L 10:29 AM CDT Chloride, S 108 (H) 98 - 107 01/07/2020 DTL mmol/L 10:29 AM CDT Bicarbonate, S 24 22 - 29 01/07/2020 DTL mmol/L 10:29 AM CDT Anion Gap 13 7 - 15 01/07/2020 DTL 10:29 AM CDT BUN (Blood Urea 18 6 - 21 01/07/2020 DTL Nitrogen), S mg/dL 10:29 AM CDT Creatinine 1.33 (H) 0.59 - 01/07/2020 DTL 1.04 mg/dL 10:29 AM CDT eGFR-Non 42 (L) >=60 01/07/2020 DTL Black/ mL/min/BSA 10:29 AM CDT [place] Comment: ----ADDITIONAL INFORMATION---- Estimated GFR calculated using the 2009 CKD_EPI creatinine equation. eGFR-Black/ 48 (L) >=60 mL/min/BSA 2019 10:29 AM CDT DTL Comment: ----ADDITIONAL INFORMATION---- Estimated GFR calculated using the 2009 CKD_EPI creatinine equation. Calcium, Total, S 9.8 8.8 - 10.2 mg/dL 01/07/2020 10:2 9 AM CDT DTL Glucose, S 84 70 - 140 mg/dL 01/07/2020 10:29 AM CDT DTL Specimen Anatomical Collection Method Collection Time Receive d Time (Source) Location / / Volume Laterality Blood (Blood, 01/07/2020 9:15 AM 01/07/20 20 Venous) CDT 10:05 AM CDT Lois Dugan R.N. LAB BLOOD ADD-ON Performing Organization Address City/State/ZIP Code Phon e Number [facility] - [address] [place], [place] [address] [facility] [place] [address] [facility] [address] documented in this encounter Visit Diagnoses Diagnosis Cancer Renal Cell Carcinoma Personal His tory documented in this encounter
--- OUTSIDE RECORDS SUMMARY | 2022-02-09 08:06 | XMS_ITS | Encounter Summary ---
:1955 Author Organization [facility] Address [address] [place] [address] Care Team Providers Name Role Phone Unavailable Primary Care Provider Unavailable Reason for Visit Reason Comments Return Visit Non face to face visit Encounter Details Date Type Department Care Team Description 07/03/2019 Office Visit Breast Diagnostic Mali Gonzalez Cance r Renal Cell Carcinoma Personal History (Primary Dx); Clinic in [place], Ph.D. 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 - 07/03/2019 3:30 PM CST I personally spent 45 minutes completing extensive medical record review and an extensive phone callwith the patient and/or family member. concerning Karyna Willis 's recent medical evaluation. #1 Bilateral right greater than left leg swelling Consultation: Yonis Thomas MD, PMR Studies: Labs, review of prior ultrasounds, CT abdomen and pelvis Recommendations: The swelling is felt to be chronic. Prior evaluation has been negative for thromboembolism. There are no lab findings to suggest a liver thyroid dysfunction as an etiology. It was feltthat the swelling is likely a combination of venous insufficiency and lymphedema. Further evaluationwas offered. At this point, the patient expressed that she did not wish to pursue further workup andwanted to continue using her thigh-high compression stockings coupled with renewed efforts towards weight loss and exercise. She was not interested in visiting with 1 of the lymphedema therapist at this time. She Will contact us if she wishes to pursue further evaluation or see 1 of the lymphedema therapists. #2 Renal cell carcinoma status post partial nephrectomy June 2018 Studies: CT chest, abdomen and pelvis Consultations: Lois Dugan, CHLORINE PLANT OPERATOR, TOW BAR DRIVER, MSN Recommendations: No evidence of recurrent or metastatic disease. Follow-up in [address] of the chest and CT of the abdomen and pelvis, labs and office visit with Urology #3 Melanoma in situ, recently resected Recommendations: She is going to be following with her local window caser 2 first diagnosed her. She will see Dr. Canales here every 2nd to 3rd visit. #4 Multiple pulmonary nodules, new, indeterminate Studies: CT chest Recommendations: New nodules were observed compared with the CT from February. Others previously described have either resolved or remains stable. Some of these findings may be related to recurrent infections or inflammation. She was seen by pulmonary medicine prior to her initial visit with me. I communicated with Mr. Petty who reviewed things. He was comfortable that these new nodules are likely benign given the pattern of things over time and recommended follow- up CT chest in 6-12 months. This will be done in 6 months given follow-up for her kidney cancer. #5 Trace ascites, unclear etiology, apparently resolved Studies: CT of the abdomen and pelvis Recommendations: Compared to the CT of the abdomen and pelvis in late February when the trace new pelvic ascites of unclear etiology was identified, the current study done yesterday did not identify anyascites. Follow-up as per her Urology's protocol but no further investigation of ascites appears to be needed at this time. #6 Hypertension, reasonably well controlled on medication Recommendations: Continue current medication for management of hypertension #7 No current anemia Studies: Labs Recommendations: Ferritin is low-normal. There was no evidence of anemia at the time of her CBC herein February which demonstrated hemoglobin of 13.5 with a normal erythrocyte count, normal hematocrit,normal MCV as well as a normal RBC distribution width. Would check periodically but no further investigation appears to be needed at this time. I recommended 2 Isabella multivitamin chewable tablets with iron daily for iron supplementation. #8 History of UTI Studies: Labs Recommendations: Current urinalysis with microscopy was normal, follow-up testing if any symptoms develop. She is currently asymptomatic based on my discussion with her. #9 Reduced GFR Studies: Labs Recommendations: GFR appears to be slowly improving. However to still not within normal range. I suspect Nephrology would not recommend anything significantly different. However understandably she is abit anxious and I will seek an eConsult with nephrology for input. One question she has is whether she can drink 1 cup of coffee per day as she has been avoiding it altogether. She is avoiding all NSAIDs. I reassured her that she can use acetaminophen periodically if needed for headache, etc. and she was delighted to learn that. All of her questions were addressed and she was extremely appreciative for the phone call and discussion today. ITY CONTROL SCIENTIST documented in this encounter Plan of Treatment Not on filedocumented as of this encounter Visit Diagnoses Diagnosis Cancer Renal Cell Carcinoma Personal His tory - Primary Personal History Of Melanoma In Situ Nodules Pulmonary Multiple documented in this encounter
--- OUTSIDE RECORDS SUMMARY | 2022-02-09 08:06 | XMS_ITS | Encounter Summary ---
:1955 Author Organization [facility] Address [address] [place] [address] Care Team Providers Name Role Phone Unavailable Primary Care Provider Unavailable Encounter Details Date Type Department Care Team Description 10/16/2019 Clinical Communication Department of Jovani Canales, Dermatology in [place], M.S. [place], [place] [address] [facility] [address] [place] [phone] Social History Tobacco Use Types Packs/Day Years [...] many times do you More than three sayta es a week 08/15/2021 talk on the phone with family, friends, or neighbors? How often do you get together with friends Once a week 08/15/2021 or relatives? How often do you attend yazdanism or More than 4 times per year 08/15/2021 jainism services? Do you belong to any clubs or Yes 08/15/2021 organizations such as yazdanism groups, unions, fraternal or athletic groups, or school groups? 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 I see she is still scheduled for the 4th. Sorry, I know you guys are crazy busy! Thanks, Alexa From: Jovani Canales M.D., M.S. Sent: Monday, October 14, 2019 10:31 AM To: Alexa Pulido R.N.; Amanda Lieberman Cc: BRI RST Derm- Surgery elementary educator Subject: RE: [id number] Perfect, Thank you! From: Alexa Pulido R.N. Sent: Monday, October 14, 2019 10:27 AM To: Jovani aCnales M.D., M.S.; Amanda Lieberman Cc: BRI RST Derm- Surgery elementary educator Subject: RE: [id number] Dr. Parker Dozier has an open 2pm excision slot on 11-26 that we could schedule this patient in. Dr. Canales, Please let us know if this works. Gianna, Alexa From: Jovani Canales M.D., M.S. Sent: Monday, October 14, 2019 10:17 AM To: BRI RST Derm- Surgery elementary educator Subject: -4 Good morning Ladies, Could I have you take a look at my schedule October 22. I have a full mohs calendar and an add on procedure which is a 1 ?? to 2 hour laser procedure. I think this lady was authorized to be added on as well that afternoon (she is nervous and will most likely take some time discussing her fears). That afternoon would probably not be the best given how busy the afternoon will be with the laser case and if any mohs cases have closures that linger into the afternoon. What do you all think? If no better timethen ok???but wanted to make you aware of what the calendar looks like from my end. Thank you, Jovani Canales MD, MS documented in this encounter Plan of Treatment Not on filedocumented as of this encounter Visit Diagnoses Not on filedocumented in this encounter
--- OUTSIDE RECORDS SUMMARY | 2022-02-09 08:06 | XMS_ITS | Encounter Summary ---
:1955 Author Organization [facility] Address [address] [place] [address] Care Team Providers Name Role Phone Unavailable Primary Care Provider Unavailable Reason for Referral MRI/CAT/PET Scan (Routine) - Closed Specialty Diagnoses / Procedures Referred By Contact Refer red To Contact Radiology Diagnoses Cancer Renal Cell Carcinoma Personal History Lois Dugan R.N. [facility] Procedures CT Abdomen Pelvis with IV Contrast CT Abdomen Pelvis without and with IV Contrast Referral ID Status Reason Start Date Expiration Date Visits Requ ested Visits Authorized [id number] Closed 07/02/2019 07/01/2020 1 1 RI/CAT/PET Scan (Routine) - Modified Order Specialty Diagnoses / Procedures Referred By Contact Refer red To Contact Radiology Diagnoses Cancer Renal Cell Carcinoma Personal History Lois Dugan R.N. [facility] Procedures CT Chest with IV Contrast CT Chest without IV Contrast Referral ID Status Reason Start Date Expiration Date Visits V isits Requested Authorized [id number] Modified 07/02/2019 07/01/2020 1 1 Order utpatient (Routine) - Closed Specialty Diagnoses / Procedures Referred By Contact Refer red To Contact Urology Lois Dugan R.N. [facility] Referral ID Status Reason Start Date Expiration Date Visits Requ ested Visits Authorized [id number] Closed 07/02/2019 07/01/2020 1 1 NG MACHINE OPERATOR Reason for Visit Outpatient (Routine) - Closed Specialty Diagnoses / Procedures Referred By Contact Refer red To Contact Urology Ubl, Liana Purcell APRN, C.N.P., [facility] [address] [place] [phone] Referral ID Status Reason Start Date Expiration Date Visits Requ ested Visits Authorized [id number] Closed 03/19/2019 03/18/2020 1 1 Encounter Details Date Type Department Care Team Description 07/02/2019 Office Visit Department of Urology Edy Silverio Cancer Renal Cell in [place], [place] Carcinoma Personal [place] [address] [facility] History (Primary Dx) [address] [place] [phone] Social History Tobacco Use Types Packs/Day Years [...] at Date Recorded Female 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 - 07/02/2019 3:30 PM CST REASON FOR VISIT Chromophobe renal cell carcinoma recheck. HISTORY OF PRESENT ILLNESS Mrs. Willis is a pleasant 64 y.o. 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 She was last seen in Urology on 03/19/2019 and was found to have numerous new tiny bilateral solid pulmonary nodules, an enlargement of a subcutaneous nodule in the left upper chest wall, new trace pelvic ascites and lower extremity edema. She was seen in Pulmonary Medicine and was asked to undergo repeat imaging in one year. Mrs. Willis was also seen in Internal Medicine for evaluation of anxiety, bilateral lower extremity edema and fatigue. Dr. Gonzalez felt her anemia was multifactorial. She recommended repeat testing in June to assess her pelvic ascites and to be seen in PM&R to address her lower extremity edema. She met with themtoday. Mrs. 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 Patient met with her local paper maker who obtained ultrasound imaging with reported complete, spontaneous resolution of pelvic ascites. Patient states that she experienced an episode of left flank pain in May of this year. She was seen in the emergency department; nephrolithiasis and pyelonephritis ruled out. Patient was treated for a urinary tract infection with oral cephalexin with complete resolution of symptoms. Patient feels very well today. She has no specific concerns. PAST MEDICAL/SURGICAL HISTORY MEDICAL Past Medical History: [...] area REVIEW OF SYSTEMS Constitutional: Positive for fatigue. ENT: Positive for difficulty hearing and persistent hoarse voice. Respiratory: Positive for coughing up mucus (phlegm), dyspnea and sleep disturbances due to breathing. Genitourinary: Positive for decreased libido. Psychiatric/Behavioral: Positive for decreased libido, stop breathing, choking, or gasping while asleep and feeling nervous, anxious, or on edge in past two weeks. The following systems were negative: Skin, Eyes, CV, GI, Hematologic, Musculoskeletal, Neuro OBJECTIVE PHYSICAL EXAMINATION General: resting comfortably in the chair Head: normocephalic, atraumatic Eyes: extraocular muscles intact with anicteric sclerae Lungs: non-labored respirations on room air Abdomen: soft, nondistended, nontender Extremities: right lower extremity edema, chronic Psych: appropriate mood and affect Neuro: ambulates with a normal gait Skin: no obvious skin lesions LABS Recent Results (from the past 24 hour(s)) Basic Metabolic Panel Collection Time: 07/02/19 8:23 AM Result Value Potassium, S 4.2 Sodium, S 144 Chloride, S 106 Bicarbonate, S 26 Anion Gap 12 Bld Urea Nitrog(BUN), S 17 Creatinine, S 1.11 (H) eGFR-Non Black 52 (L) eGFR-Black 60 Calcium, Total, S 9.2 Glucose, S 83 Ferritin Collection Time: 07/02/19 8:23 AM Result Value Ferritin, S 13 Urinalysis with Microscopic: Urine, Clean Catch Collection Time: 07/02/19 9:14 AM Result Value Source Midstream Appearance Normal Osmolality, U 425 pH, U 7.2 Glucose 2 Protein 5 Protein/Osmolality 0.12 Predicted 24 Hr Protein 96 Predicted Range 24-388 Hemoglobin, QL Negative Microscopic Automated Collection Time: 07/02/19 9:14 AM Result Value Microscopy Normal IMAGING AND TESTS EXAM: CT ABDOMEN PELVIS WITH IV CONTRAST ?? COMPARISON: 03/09/[address] ?? FINDINGS: Postoperative changes from partial right nephrectomy. Unchanged small low-attenuation lesion at the right kidney, likely a small cyst. ?? Scattered small lymph nodes in the abdomen and pelvis. Patent renal vessels. ?? Hepatic cysts and small hemangiomas. Splenule. Hysterectomy. Mild degenerative changes of the visualized spine and pelvic bones. ?? The study was performed in conjunction with a chest CT, which will be reported separately. ?? IMPRESSION: No evidence of residual or recurrent disease. EXAM: CT CHEST WITH IV CONTRAST IMPRESSION: 1. New tiny solid noncalcified 1-2 mm bilateral lower lobe nodules, detailed in findings. 2. Other previously described solid noncalcified tiny nodules are either stable or have resolved. 3. The 6 x 8 mm subcutaneous nodule in the back at the T3 level has decreased in size, detailed in findings. 4. Slightly clustered small area of nodularity in the periphery of the right middle lobe is more conspicuous on the current exam, likely of infectious/inflammatory etiology. Similar lower lobe predominant cylindrical bronchiectasis, could be sequelae of recurrent infections/inflammation. ASSESSMENT / PLAN #1 Chromophobe renal cell carcinoma status post right partial nephrectomy #2 Right lower extremity edema #3 Urinary tract infection #4 Pelvic ascites, resolved It was my pleasure to see Ms. Willis in clinic today for follow-up of chromophobe renal cell carcinoma. Thankfully her abdominal imaging is without evidence of recurrent or metastatic disease. Her chestimaging appears stable; patient met with pulmonary medicine who recommended repeat chest CT in 1 year. Patient reports present upper respiratory infection. Patient met with PMR today to discuss persistent bilateral, predominantly right lower extremity edema. Patient has had multiple evaluations to rule out DVT. Patient electing conservative measures and surveillance at this time. Regarding urinary tract infections, we discussed preventative strategies to prevent future infections. Patient is feeling well today. PLAN --follow-up in [address] chest, CT abdomen pelvis, serum labs and short office visit Electronically signed by: Lois Dugan APRN, C.Neeraj, M.S.N. 07/02/19 5:11 PM CORING MACHINE OPERATOR documented in this encounter Plan of Treatment Scheduled Referrals Name Type Priority Associated Diagnoses Order S christopher Urology office Outpatient Referral Routine Expect ed: visit (clinic) 12/31/2019 (Approximate), Expires: 07/02/2022 documented as of this encounter Results CT [...] odules are stable. Lois ROJAS CT PROCEDURES CBC without Differential (01/07/2020 9:15 AM CDT) [...] Blood (Blood, 01/07/2020 9:15 AM 01/07/20 20 9:54 Venous) CDT AM CDT Lois Dugan R.N. LAB BLOOD ADD-ON Performing Organization Address City/State/ZIP Code Phon e Number [facility] - [address] [place], [place] [address] [facility] [place] [address] [facility], [place] [address] [facility] (ABNORMAL) Basic Metabolic Panel (01/07/2020 9:15 AM [...] 01/07/2020 DTL Black/ mL/min/BSA 10:29 AM CDT Bol[place]ian Comment: ----ADDITIONAL INFORMATION---- Estimated GFR calculated using [...] Organization Address City/State/ZIP Code Phon e Number [facility] - [address] [place], [place] [address] [facility] [place] [address] [facility] [place] [address] documented in this encounter Visit Diagnoses Diagnosis Cancer Renal Cell Carcinoma Personal His tory - Primary Cancer Renal Cell Carcinoma Personal His tory documented in this encounter
--- OUTSIDE RECORDS SUMMARY | 2022-02-09 08:06 | XMS_ITS | Encounter Summary ---
:1955 Author Organization [facility] Address [address] [place] [address] Care Team Providers Name Role Phone Unavailable Primary Care Provider Unavailable Reason for Visit Outpatient (Routine) - Closed Specialty Diagnoses / Procedures Referred By Contact Refer red To Contact Nutrition Diagnoses Chronic Kidney Disease Stage 3 Glomerular Filtration Rate 30 To 59 (HCC) Rolando Mena M.D., Ph.D. [address] [address] Referral ID Status Reason Start Date Expiration Date Visits Requ ested Visits Authorized [id number] Closed 01/27/2020 01/26/2021 1 1 Encounter Details Date Type Department Care Team Description 02/25/2020 Clinical Support Department of Ashley Santamaria in [place], Disease (CKD) , Stage [place], [place] RDN, LD 3a Glomerular [address] [place] [address] Filtration Rate (GFR) [place], [place] 45 To 59 (HCC) [phone] Social History Tobacco Use Types Packs/Day Years [...] or relatives? How often do you attend yazidi or More than 4 times per year 08/15/2021 christian services? 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 ASSESSMENT Relevant Social and Family History Patient lives with her spouse. She does the grocery shopping and cooking at home. Food/Nutrition Related History Previous diet experience: Patient did her own research and has been following a very strict renal diet including low potassium and low phosphorus. Diet recall: Breakfast: 1/2 bagel with cream cheese and berries, or cream of wheat with berries or 1 egg and toast and salad green Morning snack: popcorn or zucchini slices or a cookies Lunch: salad with whole grains and vegetables with vinegar or bread with almond and jelly or leftovers Afternoon snack: popcorn or apple or other lower potassium fruit, maybe celery and cream cheese or zucchini slices Evening meal: sometimes chicken or beef, turkey soup, vegetables, or egg meal with salad and bread. Dessert Bedtime snack: none Beverage choices: water, coffee - 1 cup per week or tea Salt/Seasoning use: no salt is added Physical activity: patient is walking for exercise 4 days per week Weight History Date: 02/25/20 Weight: Wt 73.1 kg kg Body mass index is Body mass index is 28.03 kg/m??.. Weight is down 10-15 pounds in the past 3-6 months. Estimation of Nutritional Needs Weight Used for Equation Calculations: 73.1 kg Date: 02/25/2020 Estimation of Nutritional Needs PROTEIN Weight:73.1 kg (actual body weight) Protein Range: 0.6-0.8 grams/kg Protein Goal: 45 to 60 grams per day Method to Estimate Energy Needs: Sorensen-Apollo Sorensen-Apollo BEE (Basal): 1344 HB Adjusted: 1613 Total Calorie Needs: 2971-0604 calories NUTRITION DIAGNOSIS Food- and nutrition-related knowledge deficit related to no prior exposure to specific nutritional guidelines for stage 3 chronic kidney disease as evidenced by diet recall and questions asked. Nutrition Prescription/Recommendation 4448-6625 mg sodium, 45-60 grams protein INTERVENTION Education: Discussed the importance of a kidney friendly diet low in sodium with adequate but not excessive protein. Suggested patient could liberalize her diet in terms of potassium and natural sources of phosphorus (whole grains) but to avoid/limit phosphorus additives from processed food. MONITORING AND EVALUATION: Nutrition parameter to monitor: Food intake Desired Outcome: Maintain nutrition related lab values within target range Patient Goal(s): 1. 5263-5819 mg sodium 2. 45-60 gm protein 3. Avoid phosphorus additives/processed food FOLLOW UP PLAN: Provided name and phone number if questions should arise , Patient will call to schedule follow-up appointment if desired Time spent with patient (minutes): 45 documented in this encounter Plan of Treatment Not on filedocumented as of this encounter Visit Diagnoses Diagnosis Chronic Kidney Disease (CKD), Stage 3a G lomerular Filtration Rate (GFR) 45 To 59 (HCC) documented in this encounter
--- OUTSIDE RECORDS SUMMARY | 2022-02-09 08:06 | XMS_ITS | Encounter Summary ---
:1955 Author Organization [facility] Address [address] [place] [address] Care Team Providers Name Role Phone Unavailable Primary Care Provider Unavailable Encounter Details Date Type Department Care Team Description 07/02/2019 Orders Only Department of Urology in [place], [place] [address] [facility] [address] [place] [phone] Social History Tobacco Use Types Packs/Day Years [...] More than 4 times per year 08/15/2021 jehovah's witness services? Do you belong to any clubs [...] place to sleep or slept in a group home (including now)? Education Answer Date Recorded What is the highest level of school Bachelor's degree (e.g., BA, AB, 03/18/2019 you have completed or the highest BS) degree you have received? 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
--- OUTSIDE RECORDS SUMMARY | 2022-02-09 08:06 | XMS_ITS | Encounter Summary ---
:1955 Author Organization [facility] Address [address] [place] [address] Care Team Providers Name Role Phone Unavailable Primary Care Provider Unavailable Encounter Details Date Type Department Care Team Description 08/05/2019 Clinical Communication Department of Eric Thomas, Dermatology in [place], [place] [address] [facility] [address] [place] [phone] Social History Tobacco Use Types Packs/Day Years [...] or relatives? How often do you attend yarsanism or More than 4 times per year 08/15/2021 spiritism services? Do you belong to any clubs or Yes 08/15/2021 organizations such as yarsanism groups, unions, fraternal or athletic groups, or [...] at Date Recorded Female 05/10/2018 8:56 AM CLINICAL PSYCHOLOGIST LICENSED documented as of this encounter Miscellaneous Notes Telephone Encounter - Jovani Canales M.D., M.S. - 08/05/2019 1:31 PM CDT Good surinder Reyes, I think the two are related. If the scar is a little thickened and raised then it is a bit hypertrophic and most likely this is causing irritation to the nerves giving her the GI being sensation that she is experiencing. Do you mind calling her and telling her this sounds quite normal. Thank you very much. Let me know if she has any other questions. Jovani Canales M.D., M.S. 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 She was seen by her dentist on 07/31/2019 and xray's showed no tooth involvement. She has also noticed a thickening and raised area of the scar near the angle of the jaw. She try to send a photo. PLAN Disposition/Recommendation: notified provider and awaiting recommendations Information/Education: patient/caller able to teach back Caller agreeable to plan of care: yes The following references were used: nursing clinical judgment documented in this encounter Plan of Treatment Not on filedocumented as of this encounter Visit Diagnoses Not on filedocumented in this encounter
--- OUTSIDE RECORDS SUMMARY | 2022-02-09 08:06 | XMS_ITS | Encounter Summary ---
:1955 Author Organization [facility] Address [address] [place] [address] Care Team Providers Name Role Phone Unavailable Primary Care Provider Unavailable Reason for Visit Reason Comments COVID Nurse Line Encounter Details Date Type Department Care Team Description 10/14/2019 Clinical Communication Department of RAFFAELE Silverio Nurse Line Urology in Edy Wagoner M.D. [place], [facility] [address] [place], [place] [address] [facility] [address] [place], [place] [phone] (Work) [phone] Social History Tobacco Use Types Packs/Day Years [...] More than 4 times per year 08/15/2021 yazdanism services? 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 no Route reply to: FIDELIA [facility]RO SCHEDULING Scheduling Contact Number: [phone] documented in this encounter Plan of Treatment Not on filedocumented as of this encounter Visit Diagnoses Not on filedocumented in this encounter
--- OUTSIDE RECORDS SUMMARY | 2022-02-09 08:06 | XMS_ITS | Encounter Summary ---
:1955 Author Organization [facility] Address [address] [place] [address] Care Team Providers Name Role Phone Unavailable Primary Care Provider Unavailable Reason for Referral Outpatient (Routine) - Closed Specialty Diagnoses / Procedures Referred By Contact Refer red To Contact Nephrology and Diagnoses Mass Kidney Boy Martinez, [facility] Hypertension De [address] [place] [address] Referral ID Status Reason Start Date Expiration Date Visits V isits Requested Authorized [id number] Closed Specialty 01/16/2020 01/15/2021 1 1 Services Required Reason for Visit Reason Comments Follow-up Encounter Details Date Type Department Care Team Description 01/15/2020 Clinical Communication Department of [facility] [address] [place] [phone] Social History Tobacco Use Types Packs/Day Years [...] More than 4 times per year 08/15/2021 worship services? Do you belong to any clubs or Yes 08/15/2021 organizations such as yarsanism groups, unions, [employer] or athletic groups, or school groups? 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 You can resolve this message. Telephone Encounter - Rolando Mena M.D., Ph.D. - 01/27/2020 5:12 PM CDT Nutrition consult order placed Telephone Encounter - Violet Monsalve - 01/27/2020 4:55 PM CDT Mrs. Brown called and I relayed the message. She is very concerned with her GFR results and was toldby Lois that she would meet with a dissolver operator as well as a planer feeder. Mrs. Willis said her PCP is not able to schedule her with a dissolver operator. Mrs. Willis is Ok with a message being sent to her on the patient portal. Telephone Encounter - Harriet Chapman - 01/27/2020 2:31 PM CDT Called for the patient at [phone] and left a message for her to call back. Please see the note below from Dr. Martinez/Shani to relay to the patient. Thanks. Telephone Encounter - Boy Martinez M.D. - 01/23/2020 2:55 PM CDT I do not see anything in our notes regarding a dissolver operator. Typically we would not be the ones recommending this or placing these orders. Boy Martinez M.D. Urologic Oncology Fellow Telephone Encounter - Shani Hernandes - 01/23/2020 10:31 AM CDT Callers Name: Reason for call: patient called stating that she was told she would see dissolver operator, but doesn't see that on her appt. Guide. Could someone place orders? Does caller have Auth on file: Ok to respond via portal: Best Number to be reached at: [phone] Best time of day to call: Pharmacy info if needed: Telephone Encounter - Boy Martinez M.D. - 01/16/2020 11:46 AM CDT Orders replaced for earlier appointment. Ok to cancel other consult and contact nephrology clinic toschedule. Thank you, Boy Martinez M.D. Urologic Oncology Fellow Telephone Encounter - Ally Key - 01/16/2020 10:54 AM CDT . Telephone Encounter - Shani Hernandes - 01/16/2020 10:16 AM CDT Patient called today wondering if this issue has been resolved. She states that Jemima wanted her seen in 2 to 4 weeks, and she had written it with the wrong dates. Six months was written on the orderby mistake. Thank you land line would be best, Telephone Encounter - Boy Martinez M.D. - 01/15/2020 3:06 PM CDT Happy to change order if needed, did they mention what part was incorrect? Boy Martinez M.D. Urologic Oncology Fellow Telephone Encounter - Scarlett Mendiola - 01/15/2020 11:13 AM CDT Pt called to schedule neph appts. Neph will not schedule consult as ordered by Lois. Please advise and place new order. Thank you! documented in this encounter Plan of Treatment Scheduled Referrals Name Type Priority Associated Order Schedule Diagnoses Nephrology and Outpatient Referral Routine Mass Kidney Expect ed: Hypertension - 01/16/2020 General consult (Approximate ), (clinic) Expires: 03/17/2020 documented as of this encounter Results Urinalysis with Microscopic: Urine, Voided (02/25/2020 6:56 AM CDT) P athologist Signature Source Void 02/25/2020 [facility] 6:56 AM CDT Appearance Normal Normal 02/25/2020 [facility] 7:45 AM CDT Osmolality, U 180 150 - 1150 02/25/2020 [facility] mOsm/kg 8:46 AM CDT pH, U 5.5 4.5 - 8.0 02/25/2020 [facility] 8:46 AM CDT Comment: ----ADDITIONAL INFORMATION---- This test was developed and its performa nce characteristics determined by [facility] in a manner co nsistent with CLIA requirements. This test has not bee n cleared or approved by the U.S. Food and Drug Admin istration. Glucose 2 0 - 15 mg/dL 02/25/2020 7:45 AM CDT [facility] Protein, U 5 <26 mg/dL 02/25/2020 7:45 AM CDT [facility] Comment: ----ADDITIONAL INFORMATION---- On 11/14/2016 the total protein assay me thod changed resulting in approximately a 15% increase in prote in values. Protein/Osmolality 0.28 <0.42 Ratio 02/25/2020 8:46 AM CDT [facility] Comment: ----ADDITIONAL INFORMATION---- On 11/14/2016 the total protein assay me thod changed resulting in approximately a 15% increase in prote in values. Predicted 24 Hr Protein 209 mg/24 h 02/25/2020 8:46 AM CDT [facility] Predicted Range 52-846 mg/24 h 02/25/2020 8:46 AM CDT R COLLIN Hemoglobin, QL Negative Negative 02/25/2020 8:00 AM CDT RE NA Specimen Anatomical Collection Method Collection Time Receive d Time (Source) Location / / Volume Laterality Urine (Urine, 02/25/2020 6:56 AM 02/25/20 6:56 Voided) CDT AM CDT Boy Martinez M.D. LAB URINE ORDERABLES Performing Organization Address City/State/ZIP Code Phon e Number [facility] - [address] [place], [place] [address] [facility] [place] [address] [facility] [address] (ABNORMAL) Renal Function Panel (02/25/2020 6:29 AM CDT) Analysis Performed At Patho logist Time Signature Potassium, S 3.7 3.6 - 5.2 02/25/2020 [facility] mmol/L 7:19 AM CDT Sodium, S 142 135 - 145 02/25/2020 [facility] mmol/L 7:19 AM CDT Chloride, S 106 98 - 107 02/25/2020 [facility] mmol/L 7:19 AM CDT Bicarbonate, S 26 22 - 29 02/25/2020 [facility] mmol/L 7:19 AM CDT Anion Gap 10 7 - 15 02/25/2020 [facility] 7:19 AM CDT BUN (Blood Urea 15 6 - 21 02/25/2020 [facility] Nitrogen), S mg/dL 7:19 AM CDT Creatinine 1.28 (H) 0.59 - 02/25/2020 [facility] 1.04 mg/dL 7:19 AM CDT eGFR-Non 44 (L) >=60 02/25/2020 [facility] Black/ mL/min/BSA 7:19 AM CDT Peruvian Comment: ----ADDITIONAL INFORMATION---- Estimated GFR calculated using the 2009 CKD_EPI creatinine equation. eGFR-Black/ 50 (L) >=60 mL/min/BSA 2019 7:19 AM CDT DTL Comment: ----ADDITIONAL INFORMATION---- Estimated GFR calculated using the 2009 CKD_EPI creatinine equation. Calcium, Total, S 9.3 8.8 - 10.2 mg/dL 02/25/2020 7:19 AM CDT DTL Glucose, S 64 (L) 70 - 140 mg/dL 02/25/2020 7:19 AM CDT D TL Albumin, S 4.4 3.5 - 5.0 g/dL 02/25/2020 7:19 AM CDT D TL Phosphorus (Inorganic), S 3.4 2.5 - 4.5 mg/dL 02/25/20 7:19 AM CDT DTL Specimen Anatomical Collection Method Collection Time Receive d Time (Source) Location / / Volume Laterality Blood (Blood, 02/25/2020 6:29 AM 02/25/20 7:01 Venous) CDT AM CDT Boy Martinez M.D. LAB BLOOD ADD-ON Performing Organization Address City/State/ZIP Code Phon e Number [facility] - [address] [place], [place] [address] [facility] [place] [address] [facility] 200 [facility] CBC with Differential, Blood (02/25/2020 6:29 AM CDT) P athologist Signature Hemoglobin 13.9 11.6 - 02/25/2020 [facility]TL 15.0 g/dL 6:59 AM CDT Hematocrit 42.3 35.5 - 02/25/2020 [facility]TL 44.9 % 6:59 AM CDT Erythrocytes 4.62 3.92 - 02/25/2020 [facility] 5.13 6:59 AM CDT x10(12)/L MCV 91.6 78.2 - 02/25/2020 [facility]TL 97.9 fL 6:59 AM CDT RBC Distrib Width 13.2 12.2 - 02/25/2020 [facility] 16.1 % 6:59 AM CDT Platelet Count 182 157 - 371 02/25/2020 [facility]TL x10(9)/L 6:59 AM CDT Leukocytes 4.2 3.4 - 9.6 02/25/2020 [facility]TL x10(9)/L 6:59 AM CDT Neutrophils 2.36 1.56 - 02/25/2020 DTL 6.45 6:59 AM CDT x10(9)/L Lymphocytes 1.16 0.95 - 02/25/2020 DTL 3.07 6:59 AM CDT x10(9)/L Monocytes 0.37 0.26 - 02/25/2020 DTL 0.81 6:59 AM CDT x10(9)/L Eosinophils 0.32 0.03 - 02/25/2020 DTL 0.48 6:59 AM CDT x10(9)/L Basophils 0.03 0.01 - 02/25/2020 DTL 0.08 6:59 AM CDT x10(9)/L Specimen Anatomical Collection Method Collection Time Receive d Time (Source) Location / / Volume Laterality Blood (Blood, 02/25/2020 6:29 AM 02/25/20 20 6:50 Venous) CDT AM CDT Boy Martinez M.D. LAB BLOOD ADD-ON Performing Organization Address City/State/ZIP Code Phon e Number [facility] - [address] [place] [address] [facility] [place] [address] [facility] [address] documented in this encounter Visit Diagnoses Diagnosis Mass Kidney - Primary documented in this encounter
--- OUTSIDE RECORDS SUMMARY | 2022-02-09 08:06 | XMS_ITS | Encounter Summary ---
:1955 Author Organization [facility] Address [address] [place] [address] Care Team Providers Name Role Phone Unavailable Primary Care Provider Unavailable Reason for Visit Reason Comments Dizziness Encounter Details Date Type Department Care Team Description 09/05/2019 Clinical Communication Division of Eben Kuo, Dizziness Internal Medicine in M.D., Ph.D. [place], [place] [address] [facility] [address] [place] [phone] Social History Tobacco Use Types Packs/Day Years [...] or relatives? How often do you attend restorationist or More than 4 times per year 08/15/2021 judaism services? 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 - 09/05/2019 4:48 PM CDT Follow up message sent to patient portal to discuss with PCP as this is a new issue that wasn't evaluated during workup here and patient's episode in GI is complete. Telephone Encounter - Sil Esquivel - 09/05/2019 12:51 PM CDT Patient called stating she is dizzy and doesn't know why. This has been going on for some time now. She talked to derm and they didn't think it had to do with a derm issue, her dentist checked her out and doesn't think it's a tooth issue. She just isn't sure where to go with this. She is hoping someone can call her back to talk with her about this issue. Patient can be called at [phone] Thank You, Sil documented in this encounter Plan of Treatment Not on filedocumented as of this encounter Visit Diagnoses Not on filedocumented in this encounter
--- OUTSIDE RECORDS SUMMARY | 2022-02-09 08:07 | XMS_ITS | Encounter Summary ---
:1955 Author Organization [facility] Address [address] [place] [address] Care Team Providers Name Role Phone Unavailable Primary Care Provider Unavailable Reason for Visit Outpatient (Routine) - Closed Specialty Diagnoses / Procedures Referred By Contact Refer red To Contact Dermatology Diagnoses Lentigo Maligna Face (HCC) Jovani Canales M.D., [facility] Procedures ADRIANE MOHS 1-4 sites M.S. [address] [place] [address] Referral ID Status Reason Start Date Expiration Date Visits Requ ested Visits Authorized [id number] Closed 09/10/2018 09/10/2019 1 1 Encounter Details Date Type Department Care Team Description 10/10/2018 Procedure visit Department of Abelardo Heart Lenti go Maligna Face (HCC) (Primary Dx); Dermatology in [place] Aftercare Suture Removal Non-Injury [place], [place] [address] [place] [phone] Social History Tobacco Use Types Packs/Day Years Used Date Smoking Tobacco: Never Smokeless Tobacco: Never Comments: passive smoke as a child, teen Alcohol Use Standard Drinks/Week Comments Yes 1 (1 standard drink = 0.6 oz pure [...] or relatives? How often do you attend baptism or More than 4 times per year 08/15/2021 quaker services? Do you belong to any clubs or Yes 08/15/2021 organizations such as baptism groups, unions, fraternal or athletic groups, or [...] or slept in a mcc (including now)? 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 - 10/10/2018 8:00 AM CDT PREOP INDICATION: REMOVAL. Date of Surgery: 10/10/2018 Surgeon: Dr. Heart Track Inspecting Supervisor: Dr. Dillan Naavrro M.D., M.S. Location: [facility]: Floor:16 Room:[facility] Visit Type: Outpatient PostOp Diagnosis: Malignant melanoma in situ, lentigo maligna type Anatomic Location: Left mandible Preoperative size: 1.1 x 1.1 cm NHU number: 37 Procedure: Mohs micrographic surgery with MART-1 immunostains(#) and intermediate layered closure. Procedural pause conducted to verify: correct patient identity, procedure to be performed and as applicable, correct side and site, correct patient position, and availability of implants, special equipment or special requirements. INFORMED CONSENT Discussed the risks, benefits, alternatives, and the necessity of other members of the healthcare team participating in the procedure. All questions answered and consent given. PATIENT EDUCATION Ready to learn, no apparent learning barriers were identified; learning preferences include listening. Explained diagnosis and treatment plan; patient expressed understanding of the content. Preoperative medications: None An excisional biopsy was performed on the clinically evident lesion after being evaluated with a Wood's lamp, including a 3-mm margin, and sent for permanent section to investigate for invasion. This portion of the procedure was unrelated to the Mohs micrographic surgery, and the tissue was not derived from the Mohs procedure. The anesthesia used was 1% lidocaine and 0.25% bupivacaine with 1:200,000 epinephrine. The skin was prepped in a sterile fashion with Hibiclens. The initial margin was a 2-mm Wood's lamp-defined clinically tumor-free margin beyond the initial debulking specimen, for a total of 5 mm from the clinically apparent biopsy site. Histologic tumor-free margins were obtained in 2 stages (4, 1 blocks) by standard Mohs micrographic techniques with the Mohs surgeon performing both the surgery and pathology. MART-1 immunohistochemical stain was used to stain all tissue sections in order to determine histological tumor-free margins. Postoperative size: 3.3 x 2.1 cm. Anesthesia with 1% lidocaine with epinephrine 1:200,000 and another sterile prep were performed. A intermediate layered closure was planned, and Burow's triangles were excised from opposite poles of the defect in the direction of the skin tension lines. The wound was extensively undermined, and hemostasis was obtained with electrocoagulation. The wound edges were closed with 3-0 Vicryl, 4-0 Vicryl, and 5-0 Monocryl subcutaneous sutures and 6-0 nylon skin sutures. Postoperative length: 7.4 cm. Estimated blood loss: Minimal. Complications: None. Wound care: Routine. Postoperative medications: None (#) This test has been modified from the brewery cellar worker's instructions. Its performance characteristics were determined by [facility] in a manner consistent with CLIA requirements. This test has not been cleared or approved by the U.S. Food and Drug Administration. documented in this encounter Consult Notes Dillan Navarro M.D., M.S. - 10/10/2018 8:00 AM CDT Referral Jovani Canales M.D., M.S. Chief Complaint Malignant melanoma in situ, lentigo maligna type, left mandible HISTORY OF PRESENT ILLNESS is a very pleasant 63 y.o. 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 This was biopsied by her local provider on August 16, after which she was referred to [facility] for Mohs micrographic surgery. She also underwent a full skin exam with Dr. Canales on September 23, at which time an actinic keratosis was biopsied from the left upper cutaneous lip with no further treatment recommended. She has no prior history of skin cancer. The dermatologic surgery preoperative information sheet was reviewed. She does not have a pacemaker or defibrillator and does not typically require antibiotics before dental work or other procedures. She is currently taking the following antithrombotic medications: None. Denies tobacco use and rarely does drink alcohol. Review of systems Denies fevers, chills, night sweats, headaches, vision changes, seizures, hemoptysis, hematochezia, bony pain, or unintentional weight loss. PHYSICAL EXAM Vitals: BP 143/80, HR 77 General: No acute distress. Pleasant and cooperative. Alert and oriented. Skin: Examination limited to the face per patient request. She has a well- healed, pink, slightly depressed biopsy site on the left mandible without residual pigmentation either clinically or on Wood's lamp examination. She has multiple solar lentigines scattered throughout the face and moderate dermato heliosis. Lymph: No palpable lymphadenopathy in the parotid, submandibular, cervical, or supraclavicular regions bilaterally, except for a small, freely mobile, nontender nodule on the left clavicle the patient states has, and gone for a long time. IMPRESSION/REPORT/PLAN #1 Malignant melanoma in situ, lentigo maligna type, left mandible Given the location and histologic subtype of melanoma, Mohs micrographic surgery with Longview 1 immunostaining is indicated. Risks, benefits, and alternatives were discussed. Patient elected to proceed. Briefly, a debulking specimen was obtained from the original biopsy site and sent for permanent sections to rule out up staging. Control obtained from the right mandible as comparison. The tumor was cleared in 2 stage(s). Longview 1 immuno staining was utilized to define histologically clear margins. And incidental compound nevus was noted on the B stage. This had no evidence of cellular atypia on frozen sections, and both H&E and Longview 1 stains evaluated with 1 of our dermatopathologists who agreed with this impression. The defect was repaired primarily with a postoperative length of 7.4 cm. Patient tolerated the procedure well. Please the operative note for additional details. All questions answered. PROCEDURAL PAUSE Procedural pause conducted to verify: correct patient identity, procedure to be performed, and as applicable, correct side and site, correct patient position, and availability of implants, special equipment, or special requirements. PATIENT EDUCATION Ready to learn. No apparent learning barriers were identified. Learning preferences include listening. Explained diagnosis and treatment plan; patient/guardian of patient expressed understanding of thecontent. INFORMED CONSENT Discussed the risks, benefits, alternatives, and the necessity of other members of the healthcare team participating in the procedure. All questions answered and consent given. Associated attestation - [facility] Heart M.D. - 10/10/2018 3:24 PM CDT I saw and evaluated the patient, participating in the alexander elements of the service. I discussed the findings, assessment and plan with the fellow and agree with fellow's findings and plan as documented in the fellow's note. I was immediately available for the entirety of the procedure(s) and present for the alexander and critical portions. Ms. Willis is here for treatment of a melanoma in situ along the left mandible. It is amenable to a debulking specimen sent centrally for additional staging, with Mohs surgery performed at the peripherygiven the ill-defined nature of the pigment surrounding the initial lesion. No head or neck adenopathy. Two stages required for clearance. An incidental nevus was noted on the 2nd stage, confirmed by reviewing cytologic features (no atypia and well-circumscribed morphology), in the immuno staining pattern. Reviewed with dermatopathology as well as outlined in the note of Dr. Navarro. A primary repairwas possible. The patient requires long-term periodic monitoring. Melanoma education provided prior to departure. Additional details may be found in the procedure note as well. documented in this encounter Plan of Treatment Not on filedocumented as of this encounter Procedures Procedure Name Priority Date/Time Associated Diagnosis Comme nts DERMATOPATHOLOGY Routine 10/10/2018 8:29 AM Lentigo Maligna Fa ce Results for this CDT (HCC) procedure are i n the results section. documented in this encounter Results Dermatopathology (10/10/2018 8:29 AM CDT) Component Value Ref Test Analysis Performed At [facility] Range Method Time Signature Gross Description Received in formalin labeled with the patient's n elida, 10/15/2018 [facility] medical record number, and left jawline is a 1.4 x 1.2 c m 2:54 PM LABORATORIES - pale-pace skin ellipse excised to a depth of 0.3 cm. CDT [facility] Encompassing on the entire skin surface is a brown possible CAMPUS lesion with irregular borders. ??The specimen is serially sectioned submitted entirely as follows: A1: opposite ends A2: ??One entire lesion Grossed by AL. Hema Sanchez SJennifer 10/15/2018 [facility] electronically [place] 2:54 PM LABORATORIES - signed by [facility] 10/15/2018 [facility] 2:54 PM LABORATORIES - T [facility] Interpretation FINAL DIAGNOSIS 10/15/2018 [facility] A. ??Left jawline, Skin excision: ??Re-excision of maligna nt 2:54 PM LABORATORIES - melanoma in situ [id number] ([id number], accession CDT [facility] date 09/05/18), no residual tumor identified CAMPUS Specimen (Source) Anatomical Collection Method Collection Time Re ceived Time Location / / Volume Laterality Skin (Left 10/10/2018 8:29 AM jawline) CDT Narrative This result has an attachment that is no t available. [facility] Heart M.D. LAB PATH DERM ORDERABLES Performing Organization Address City/State/ZIP Code Phon e Number [facility] LABORATORIES - [address] [place], [place] [address] [facility] documented in this encounter Visit Diagnoses Diagnosis Lentigo Maligna Face (HCC) - Primary Aftercare Suture Removal Non-Injury documented in this encounter Administered Medications Active Administered Medications - up to 3 most recent administrations Medication Order MAR Action Action Date Dose Rate Site skofrpagoxw-qjhozicih-RAAKANTdemo Given 10/10/2018 3:20 PM CDT 8 mL 0.25%-1%-1:200,000 injection 2-50 mL 2-50 mL, infiltration, As needed, may repeat if the patient complains of pain/discomfort at the site up to 50 mL for entire procedure, Starting on Aline 10/10/18 at 0924 lidocaine-EPINEPHrine 1%-1:200,000 injection Given 9 3:20 PM CDT 16 mL 2-50 mL (XYLOCAINE W/EPI) 2-50 mL, infiltration, As needed, may repeat if the patient complains of pain/discomfort at the site up to 50 mL for entire procedure, Starting on Aline 10/10/18 at 0924 documented in this encounter
--- OUTSIDE RECORDS SUMMARY | 2022-02-09 08:07 | XMS_ITS | Encounter Summary ---
:1955 Author Organization [facility] Address [address] [place] [address] Care Team Providers Name Role Phone Unavailable Primary Care Provider Unavailable Reason for Visit Reason Onset Date Comments Follow-up 03/24/2019 Encounter Details Date Type Department Care Team Description 03/24/2019 Clinical Communication Department of Urology Edy Silverio Follow-up in Rizwana López M.D. 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 Please relay information. Thank you. TENDER Telephone Encounter - Tamika Pruitt - 03/24/2019 8:28 AM CST Mrs. Willis called in to schedule her follow up visit with Dr. Silverio as well as the Pulmonary consult that was ordered. She is scheduled for Pulmonary on 03/26. Dr. Silverio has no available appointments through 06/20/2019. Patient is concerned about waiting to be seen since there were some findingson her imaging. Can you please review and advise? If there is a need to be seen sooner, can you please advise of an override time? Thank you. TENDER documented in this encounter Plan of Treatment Not on filedocumented as of this encounter Visit Diagnoses Not on filedocumented in this encounter
--- OUTSIDE RECORDS SUMMARY | 2022-02-09 08:07 | XMS_ITS | Encounter Summary ---
:1955 Author Organization [facility] Address [address] [place] [address] Care Team Providers Name Role Phone Unavailable Primary Care Provider Unavailable Reason for Referral Outpatient (Routine) - Closed Specialty Diagnoses / Procedures Referred By Contact Refer red To Contact Dermatology [facility] Heart M.D. [facility] [address] [place] [address] Referral ID Status Reason Start Date Expiration Date Visits Requ ested Visits Authorized [id number] Closed 10/24/2018 10/24/2019 1 1 Scheduling Instructions Please schedule for skin exam any provid er in 4 months Reason for Visit Appointment Request (Routine) - Closed Specialty Diagnoses / Procedures Referred By Contact Refer red To Contact Dermatology Referral ID Status Reason Start Date Expiration Date Visits Requ ested Visits Authorized [id number] Closed 10/24/2018 10/24/2019 1 Encounter Details Date Type Department Care Team Description 10/24/2018 Office Visit Department of [facility] Of Skin Dermatology cirilo Ernandez M.D. Cancer Personal [place], [place] [address] (Primary Dx) [address] [place] [address] [place], [place] [phone] (Wo rk) [phone] Social History Tobacco Use Types Packs/Day Years [...] or slept in a half-way (including now)? 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 - 10/24/2018 1:15 PM CDT SUBJECTIVE CHIEF COMPLAINT / REASON FOR VISIT Wound check, questions about melanoma HISTORY OF PRESENT ILLNESS Ms. Willis is here for follow-up now just over 2 weeks status post Mohs surgery with a debulking layer for melanoma in situ of the cheek in the preauricular region near the mandibular angle. She had sun some electronic communication with photographs yesterday common asked that she come in person for wound check. She also had some questions about margins for melanoma. She is doing well with the wound currently, has a little bit of tightness, but is eating well, and sensation is good. She mentioned that sometime she has some redness of the skin when she has radiologic procedures, which subsided shortly after the procedures are completed. REVIEW OF SYSTEMS Noncontributory OBJECTIVE PHYSICAL EXAM Performed of the head neck skin and head neck nodes checked. No head or neck adenopathy. Scar is well-healed with minimal erythema. There is no dehiscence. Scar is smooth. No hematoma. No residual pigment. She appears to be healing well ASSESSMENT / PLAN #1 Status post debulking and Mohs excision of a melanoma in situ of the left cheek, healing well Treatment 1. I had a lengthy discussion with the patient about the utility of Mohs surgery for melanoma in situ, which is relatively well established and there is a large number of papers addressing the utility and comparisons to standard excision, in the medical literature. I shared hard copies of 3 such manual scripts from our group here at [facility] in 2015, a group at the [facility] in 2019, and another group at the [facility] in 2019 as well. 2. Patient education provided about expectations, wound remodeling, and some of the other worries that she has had post cancer surgery. She appears to be doing well and I mentioned this to the patient and questions and answers were exchanged. 3. We have asked that she return for follow up in 4-6 months for recheck, and she may contact us sooner if necessary, or she has concerns, or new findings, signs, or symptoms. documented in this encounter Plan of Treatment Scheduled Referrals Name Type Priority Associated Order Schedule Diagnoses Dermatology office Outpatient Referral Routine Ex pected: visit (clinic) 02/23/2019 (Approximate), Expires: 10/24/2021 documented as of this encounter Visit Diagnoses Diagnosis Melanoma Of Skin Cancer Personal History - Primary documented in this encounter
--- OUTSIDE RECORDS SUMMARY | 2022-02-09 08:07 | XMS_ITS | Encounter Summary ---
:1955 Author Organization [facility] Address [address] [place] [address] Care Team Providers Name Role Phone Unavailable Primary Care Provider Unavailable Encounter Details Date Type Department Care Team Description 10/10/2018 Ancillary Procedure Department of Dermatology Social History Tobacco Use Types Packs/Day Years [...] or relatives? How often do you attend episcopalian or More than 4 times per year 08/15/2021 presybeterian services? Do you belong to any clubs or Yes 08/15/2021 organizations such as episcopalian groups, unions, fraternal or athletic groups, or [...] or slept in a fdc (including now)? 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 documented in this encounter Results cheek, left jawline 37 Mohs micrographic surgery-Dermatology Image Exam (10/10/2018 12:15 PM CDT) Specimen (Source) Anatomical Collection Method Collection Time Re ceived Time Location / / Volume Laterality 10/10/2018 12:00 PM CDT Narrative [facility] - 10/10/2018 3:36 PM CDT This order has been created and auto-finalized to support the import of images acquired without order. The clini glen documentation to support these images can be found on the encounter shanthi t produced images. Provider Not In System IMG NON RAD IMAGING PROCEDUR ES Performing Organization Address City/State/ZIP Code Phon e Number [facility] documented in this encounter Visit Diagnoses Not on filedocumented in this encounter
--- OUTSIDE RECORDS SUMMARY | 2022-02-09 08:07 | XMS_ITS | Encounter Summary ---
:1955 Author Organization [facility] Address [address] [place] [address] Care Team Providers Name Role Phone Unavailable Primary Care Provider Unavailable Encounter Details Date Type Department Care Team Description 01/07/2019 Clinical Communication Department of Juan Gomez Dermatology in [place], [place] [phone] [address] [facility] (Work) [place] [address] Social History Tobacco Use Types Packs/Day Years [...] or relatives? How often do you attend christianity or More than 4 times per year 08/15/2021 confucianist services? Do you belong to any clubs or Yes 08/15/2021 organizations such as christianity groups, unions, fraternal or athletic groups, or [...] or slept in a assisted (including now)? 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 - 01/07/2019 8:59 AM CDT Patient called with follow up questions regarding venous structure on her face. She has been unable to get a follow up appointment sooner than 02/10. She will do her best to send a high quality photo ofthe area she's concerned about through the portal for evaluation, and wait for any provider recommendations or feedback. documented in this encounter Plan of Treatment Not on filedocumented as of this encounter Visit Diagnoses Not on filedocumented in this encounter
--- OUTSIDE RECORDS SUMMARY | 2022-02-09 08:07 | XMS_ITS | Encounter Summary ---
:1955 Author Organization [facility] Address [address] [place] [address] Care Team Providers Name Role Phone Unavailable Primary Care Provider Unavailable Reason for Referral MRI/CAT/PET Scan (Routine) - Closed Specialty Diagnoses / Procedures Referred By Contact Refer red To Contact Radiology Diagnoses Cancer Renal Cell Carcinoma Personal History [facility]iana [facility] Procedures [facility] Chest with IV Contrast CT Chest without and with IV Contrast C.N.P., D.N.P. [address] [place] [phone] Referral ID Status Reason Start Date Expiration Date Visits Requ ested Visits Authorized [id number] Closed 03/19/2019 03/18/2020 1 1 RI/CAT/PET Scan (Routine) - Modified Order Specialty Diagnoses / Procedures Referred By Contact Refer red To Contact Radiology Diagnoses Cancer Renal Cell Carcinoma Personal History Liana Dallas APRN, [facility] Procedures CT Abdomen Pelvis with IV Contrast CT Abdomen Pelvis without and with IV Contrast C.N.P., D.N.P. [address] [place] [phone] Referral ID Status Reason Start Date Expiration Date Visits V isits Requested Authorized [id number] Modified 03/19/2019 03/18/2020 1 1 Order utpatient (Routine) - Closed Specialty Diagnoses / Procedures Referred By Contact Refer red To Contact Urology Liana Dallas APRN C.N.PJennifer, [facility] D.N.P. [address] [place] [phone] Referral ID Status Reason Start Date Expiration Date Visits Requ ested Visits Authorized [id number] Closed 03/19/2019 03/18/2020 1 1 utpatient (Routine) - Closed Specialty Diagnoses / Procedures Referred By Contact Refer red To Contact Internal Medicine / Diagnoses Lesion Labia Fatigue Edema Lower Extremity Nodules Pulmonary Multiple Cancer Renal Cell Carcinoma Personal History Anxiety Liana Dallas [facility] General Internal ROSEMARIE C.N.PJennifer, D.N.P. Medicine [address] [place] [phone] Referral ID Status Reason Start Date Expiration Date Visits Requ ested Visits Authorized [id number] Closed 03/19/2019 03/18/2020 1 1 utpatient (Routine) - Closed Specialty Diagnoses / Procedures Referred By Contact Refer red To Contact Pulmonary Medicine Diagnoses Fatigue Edema Lower Extremity Nodules Pulmonary Multiple Cancer Renal Cell Carcinoma Personal History Liana Dallas APRN, [facility] C.N.P., D.N.P. [address] [place] [phone] Referral ID Status Reason Start Date Expiration Date Visits V isits Requested Authorized [id number] Closed Specialty 03/19/2019 03/18/2020 1 1 Services Required Reason for Visit Outpatient (Routine) - Closed Specialty Diagnoses / Procedures Referred By Contact Refer red To Contact Urology Hermelindo Estrada APRN, C.N.P. [place] [address] [place] [address] [phone] Referral ID Status Reason Start Date Expiration Date Visits Requ ested Visits Authorized [id number] Closed 10/11/2018 10/11/2019 1 1 Encounter Details Date Type Department Care Team Description 03/19/2019 Office Visit Department of Urology Delmis Estrada APRN, C.N.P. [address] [place] [phone] Lesion Labia (Primary Dx); in [facility], Liana Purcell APRN C.N.PJennifer, D.N.P. 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 - 03/19/2019 3:00 PM CDT REASON FOR VISIT Renal cell carcinoma recheck. Patient of Dr. Silverio seen on survivorship Clinic calendar ?? HISTORY OF PRESENT ILLNESS Mrs. Willis is a pleasant 63 y.o. 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 She presents today in follow-up. ?? Mrs. Willis was also found to have malignant melanoma of the left mandible and is seeing dermatology. ?? She has done well post nephrectomy. She has had increased fatigue. Denies gross hematuria and flank pain. She has had increased bloating. She was told by Dermatology that she has a labial lesion that she should follow-up with gynecology for. She has not yet done this. She has a history of hysterectomyand does have her ovaries. She presents today in follow-up. ?PHYSICAL EXAM General: Alert and oriented 63-year-old female in no acute distress IMAGING CT Chest: IMPRESSION: 1. Numerous new tiny bilateral solid pulmonary nodules which are indeterminate but concerning for metastatic disease. 2. Previously present small and tiny bilateral solid pulmonary nodules are stable. 3. Interval enlargement of a now 10 mm round subcutaneous nodule in the upper posterior chest wall. While indeterminate, this measures fluid attenuation and likely represents an epidermoid/sebaceous cyst. ?CT Abd/pelvis ?? IMPRESSION: 1. Trace new pelvic ascites, of unclear etiology. Examination otherwise stable, without features for recurrent or metastatic disease. ?? 2. Examination performed in conjunction with CT of the chest, which will be reported separately. ?? LABS Recent Results (from the past 72 hour(s)) Basic Metabolic Panel Collection Time: 03/19/19 8:49 AM Result Value Potassium, S 4.3 Sodium, S 142 Chloride, S 105 Bicarbonate, S 27 Anion Gap 10 Bld Urea Nitrog(BUN), S 15 Creatinine, S 1.17 (H) eGFR-Non Black 49 (L) eGFR-Black 57 (L) Calcium, Total, S 9.4 Glucose, S 61 (L) CBC without Differential Collection Time: 03/19/19 8:49 AM Result Value Hemoglobin 13.5 Hematocrit 42.8 Erythrocytes 5.05 MCV 84.8 RBC Distrib Width 15.4 Platelet Count 220 Leukocytes 5.8 Urinalysis with Microscopic: Urine, Voided Collection Time: 03/19/19 9:09 AM Result Value Source Void Appearance Normal Osmolality, U 188 pH, U 6.6 Glucose <2 Protein <4 Protein/Osmolality <0.21 Predicted 24 Hr Protein <164 Predicted Range <664 Hemoglobin, QL Negative Microscopic Automated Collection Time: 03/19/19 9:09 AM Result Value Microscopy Normal Creatinine, POCT Collection Time: 03/19/19 10:32 AM Result Value eGFR-Black, POCT 61 eGFR Non-Black, POCT 53 (L) Creatinine, POCT Collection Time: 03/19/19 10:32 AM Result Value Creatinine, POCT, B 1.1 (H) ?? IMPRESSION/REPORT/PLAN #1 Chromophobe renal cell carcinoma status post right partial nephrectomy July 02, 2018 for pT2aNX MX R0 disease #2 Pulmonary nodule #3 Fatigue #4 Bloating #5 Pelvic ascites #6 Melanoma #7 Bilateral lower extremity edema #8 Anxiety #9 Labial lesion It was my pleasure meeting with Mrs. Willis today in clinic. We reviewed your imaging findings. CT abdomen and pelvis was negative for any recurrent or metastatic disease findings. There was new trace pelvic ascites of unclear etiology. Her CT chest showed numerous new tiny bilateral solid pulmonary nod ules which are indeterminate but concerning for metastatic disease. There also previously identifiedsmall and tiny bilateral solid pulmonary nodules which are stable. There was also interval enlargement of a 10 mm round subcutaneous nodule in the upper posterior chest wall. While this is indeterminate, likely represents an epidermoid or sebaceous cyst. The 10 mm finding on the chest wall will be followed up on subsequent imaging. We reviewed the findings of multiple tiny new bilateral solid pulmonary nodules and I recommended further evaluation by Pulmonary. These are still small but she has a desire to establish with pulmonary and this is appropriate. I have placed an order. Instead of waiting 6 months for follow-up, I recommended follow-up in 3 months with imaging and blood work urine Urology.The chest can be re-evaluated at that time as well. Her blood work was stable. She did have a littlelesion on her labia which should be evaluated by gynecology and I recommended evaluation of her bloating and pelvic ascites so she requested a consultation with gynecology here. Order was placed. In addition, she has significant anxiety, bilateral lower extremity edema, and significant fatigue which she would like addressed with Internal Medicine. I placed a consult. Plan to see her back in 3 months after imaging and blood work. She was in agreement with the plan. All questions addressed. Ready to learn, no apparent learning barriers were identified; learning preferences include listening. Explained diagnosis and treatment plan; patient expressed understanding of the content. Spent 40 minutes with the patient and greater than 50% of this time was spent counseling the patientregarding diagnosis and available treatment options. documented in this encounter Plan of Treatment Scheduled Referrals Name Type Priority Associated Order Schedule Diagnoses Pulmonary Medicine - Outpatient Referral Routine Fatigue Expected: General consult Edema Lower 03/19/2019 (clinic) Extremity (Approximate), Nodules Pulmonary Expires: Multiple 02/25/2021 Cancer Renal Cell Carcinoma Personal History General Internal Outpatient Referral Routine Lesion Labi a Expected: Medicine - Fatigue 03/19/2019 Consultative medicine Edema Lower (Appro ximate), consult (clinic) Extremity Expires: Nodules Pulmonary 03/19/2022 Multiple Cancer Renal Cell Carcinoma Personal History Anxiety Urology office visit Outpatient Referral Routine Expected: (clinic) 06/19/2019 (Approximate), Expires: 03/19/2022 documented as of this encounter Results CT Chest with IV Contrast (07/02/2019 11:15 AM PHOTOVOLTAIC INSTALLER) Anatomical Region Laterality Modality Chest, Thoracic RST LOS, Thoracic ARZ N/A Co mputed Tomography, Computed LOS, Thoracic ARZ LOS, Thoracic FLA Kevin graphy LOS Specimen (Source) Anatomical Collection Method Collection Time Re ceived Time Location / / Volume Laterality 07/02/2019 11:40 AM PHOTOVOLTAIC INSTALLER Impressions 07/02/2019 11:55 AM PHOTOVOLTAIC INSTALLER 1. New tiny solid noncalcified 1-2 mm [...] rec urrent infections/inflammation. Narrative 07/02/2019 11:55 AM PHOTOVOLTAIC INSTALLER EXAM: CT CHEST WITH IV CONTRAST No [...] sequelae of rec urrent infections/inflammation. Liana Dallas APRN, C.N.P., D.N.P. IMG CT PROCEDURES CT Abdomen Pelvis with IV Contrast (07/02/2019 11:15 AM PHOTOVOLTAIC INSTALLER) Anatomical Region Laterality Modality Abdomen, Pelvis, Abdominal RST LOS, N/A Comp uted Tomography, Computed Abdominal ARZ LOS, Abdominal FLA LOS Iron ography Specimen (Source) Anatomical Collection Method Collection Time Re ceived Time Location / / Volume Laterality 07/02/2019 12:07 PM PHOTOVOLTAIC INSTALLER Impressions 07/02/2019 12:27 PM PHOTOVOLTAIC INSTALLER No evidence of residual or recurrent dis ease. Narrative 07/02/2019 12:27 PM PHOTOVOLTAIC INSTALLER EXAM: ??CT ABDOMEN PELVIS WITH IV CONTRAST [...] Dallas APRN, C.N.P., D.N.P. IMG CT PROCEDURES (ABNORMAL) Basic Metabolic Panel (07/02/2019 8:23 AM PHOTOVOLTAIC INSTALLER) Analysis Performed At Patho logist Time Signature Potassium, S 4.2 3.6 - 5.2 07/02/2019 DTL mmol/L 9:55 AM PHOTOVOLTAIC INSTALLER Sodium, S 144 135 - 145 07/02/2019 DTL mmol/L 9:55 AM PHOTOVOLTAIC INSTALLER Chloride, S 106 98 - 107 07/02/2019 DTL mmol/L 9:55 AM PHOTOVOLTAIC INSTALLER Bicarbonate, S 26 22 - 29 07/02/2019 DTL mmol/L 9:55 AM PHOTOVOLTAIC INSTALLER Anion Gap 12 7 - 15 07/02/2019 DTL 9:55 AM PHOTOVOLTAIC INSTALLER BUN (Blood Urea 17 6 - 21 07/02/2019 DTL Nitrogen), S mg/dL 9:55 AM PHOTOVOLTAIC INSTALLER Creatinine 1.11 (H) 0.59 - 07/02/2019 DTL 1.04 mg/dL 9:55 AM PHOTOVOLTAIC INSTALLER eGFR-Non 52 (L) >=60 07/02/2019 DTL Black/ mL/min/BSA 9:55 AM PHOTOVOLTAIC INSTALLER Greek Comment: ----ADDITIONAL INFORMATION---- Estimated GFR calculated using the 2008 CKD_EPI creatinine equation. eGFR-Black/ 60 >=60 mL/min/BSA 2019 9:55 AM PHOTOVOLTAIC INSTALLER DTL Comment: ----ADDITIONAL INFORMATION---- Estimated GFR calculated using the 2009 CKD_EPI creatinine equation. Calcium, Total, S 9.2 8.8 - 10.2 mg/dL 07/02/2019 9:55 AM PHOTOVOLTAIC INSTALLER DTL Glucose, S 83 70 - 140 mg/dL 07/02/2019 9:55 AM PHOTOVOLTAIC INSTALLER D TL Specimen Anatomical Collection Method Collection Time Receive d Time (Source) Location / / Volume Laterality Blood (Blood, 07/02/2019 8:23 AM 07/02/19 20 8:42 Venous) PHOTOVOLTAIC INSTALLER AM PHOTOVOLTAIC INSTALLER Liana Dallas APRN, C.N.P., D.N.P. LAB BLOOD ADD-ON Performing Organization Address City/State/ZIP Code Phon e Number [facility] - [address] [place] [phone] [facility] [place] [place] [address] Laboratories-[facility] [address] Pulmonary Function Tests (03/26/2019 7:24 AM PHOTOVOLTAIC INSTALLER) P athologist Signature VC MAX PRE 3.47 L 03/26/2019 [facility] 4:19 PM PHOTOVOLTAIC INSTALLER SUITE FVC 3.47 L [facility] PHOTOVOLTAIC INSTALLER SUITE FEV1 2.59 L 03/26/2019 [facility] PM PHOTOVOLTAIC INSTALLER SUITE FEV1/FVC 74.79 % 03/26/[facility] PM PHOTOVOLTAIC INSTALLER SUITE ADX61-21% 2.09 L/s 03/26/2019 [facility] 4:19 PM PHOTOVOLTAIC INSTALLER SUITE PEF PRE 5.01 L/s 03/26/2019 [facility] 4:19 PM PHOTOVOLTAIC INSTALLER SUITE FET PRE 8.48 sec 03/26/2019 [facility] PM PHOTOVOLTAIC INSTALLER SUITE MVV 88.70 L/min 03/26/2019 [facility] PM PHOTOVOLTAIC INSTALLER SUITE DLCO 20.10 ml/(min*mm 03/26/2019 [facility] Hg) 4:19 PM PHOTOVOLTAIC INSTALLER SUITE DLCOc 20.04 ml/(min*mm 03/26/2019 [facility] Hg) 4:19 PM PHOTOVOLTAIC INSTALLER SUITE HB 13.50 g(Hb)/dL 03/26/2019 [facility] 4:19 PM PHOTOVOLTAIC INSTALLER SUITE VA 5.37 L 03/26/2019 [facility] 4:19 PM PHOTOVOLTAIC INSTALLER SUITE % PRED VC MAX 116.44 % 03/26/2019 [facility] 4:19 PM PHOTOVOLTAIC INSTALLER SUITE FVC% 116.44 % 03/26/2019 [facility] 4:19 PM PHOTOVOLTAIC INSTALLER SUITE FEV1% 111.48 % 03/26/2019 [facility] 4:19 PM PHOTOVOLTAIC INSTALLER SUITE % PRED 95.09 % 03/26/[facility] FEV1/FVC 4:19 PM PHOTOVOLTAIC INSTALLER SUITE % PRED FEF 103.29 % 03/26/2019 [facility] 25-75% 4:19 PM PHOTOVOLTAIC INSTALLER SUITE % PRED PEF 89.63 % 03/26/2019 [facility] 4:19 PM PHOTOVOLTAIC INSTALLER SUITE PRED VC MAX 2.98 L 03/26/2019 [facility] 4:19 PM PHOTOVOLTAIC INSTALLER SUITE PRED FVC 2.98 L 03/26/2019 [facility] 4:19 PM PHOTOVOLTAIC INSTALLER SUITE PRED FEV 1 2.32 L 03/26/2019 [facility] 4:19 PM PHOTOVOLTAIC INSTALLER SUITE PRED FEV1/FVC 78.65 % 03/26/2019 [facility] 4:19 PM PHOTOVOLTAIC INSTALLER SUITE PRED FEF 2.03 L/s 03/26/2019 [facility] 25-75% 4:19 PM PHOTOVOLTAIC INSTALLER SUITE PRED PEF 5.59 L/s 03/26/2019 [facility] 4:19 PM PHOTOVOLTAIC INSTALLER SUITE Specimen (Source) Anatomical Collection Method Collection Time Re ceived Time Location / / Volume Laterality 03/26/2019 7:24 AM PHOTOVOLTAIC INSTALLER Narrative This result has an attachment that is no t available. Liana Dallas APRN, C.N.P., D.N.P. PFT ORDERABLES Performing Organization Address City/State/ZIP Code Phon e Number [facility] [address] [place] [address] documented in this encounter Visit Diagnoses Diagnosis Lesion Labia - Primary Fatigue Edema Lower Extremity Nodules Pulmonary Multiple Cancer Renal Cell Carcinoma Personal His tory Anxiety Cancer Renal Cell Carcinoma Personal His tory documented in this encounter
--- OUTSIDE RECORDS SUMMARY | 2022-02-09 08:07 | XMS_ITS | Encounter Summary ---
:1955 Author Organization [facility] Address [address] [place] [address] Care Team Providers Name Role Phone Unavailable Primary Care Provider Unavailable Encounter Details Date Type Department Care Team Description 10/09/2018 Hospital Encounter Department of Radiology, Betty Brock, [facility] Kidney [facility], in .D. [place], [place] [address] [facility] [address] [place] [phone] Social History Tobacco Use Types Packs/Day Years [...] or relatives? How often do you attend holiness or More than 4 times per year 08/15/2021 muslim services? Do you belong to any clubs or Yes 08/15/2021 organizations such as holiness groups, unions, fraternal or athletic groups, or [...] or slept in a fpc (including now)? 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 cimetidine (TAGAMET) 200 Take 200 mg by mouth 0 0 09/15/2016 03/31/2019 mg tablet every morning. lisinopril Take 5 mg by mouth 4 04/13/20182019 (PRINIVIL,ZESTRIL) 5 mg every morning. tablet multivitamin (DAILY Take 1 tablet by 0 04/06/2010 06/30/2020 MULTIPLE) tablet mouth every morning. documented as of this encounter Plan of Treatment Not on filedocumented as of this encounter Procedures Procedure Name Priority Date/Time Associated Comments Diagnosis DX CHEST AP OR PA RAD - Routine 10/09/2018 9:48 Mass Kidney Result s for this AND LATERAL 2 (most inpatients AM CDT procedure are in VIEWS and all the results outpatients) section. documented in this encounter Results DX Chest AP or PA and Lateral 2 Views (10/09/2018 9:48 AM CDT) Anatomical Region Laterality Modality Chest, Thoracic RST LOS, Thoracic ARZ LOS, Thoracic N/A Digital Radiography FLA LOS Specimen (Source) Anatomical Collection Method Collection Time Re ceived Time Location / / Volume Laterality 10/09/2018 9:56 AM CDT Impressions 10/09/2018 10:06 AM CDT IMPRESSION: ??Compared to 05/05/2018, there is a new lucency projecting over the anterior right first rib. These findings are suspected to be the result of overlap of structures, however, given th e history of renal mass a chest CT is suggested in further evaluation. Mild bi apical scarring. Thoracolumbar curve with hypertrophic degenerative changes. Narrative 10/09/2018 10:06 AM CDT EXAM: ??DX CHEST AP OR PA AND LATERAL 2 VIEWS Procedure Note Ace Ortiz M.D. - 10/09/2018Form atting of this note might be different from the original. EXAM: DX CHEST AP OR PA AND LATERAL 2 EWS IMPRESSION: Compared to 05/05/2018, ther e is a new lucency projecting over the anterior right first rib. These findings are suspected to be the result of overlap of structures, however, given th e history of renal mass a chest CT is suggested in further evaluation. Mild bi apical scarring. Thoracolumbar curve with hypertrophic degenerative changes. [facility] VÍCTOR documented in this encounter Visit Diagnoses Diagnosis Mass Kidney documented in this encounter
--- OUTSIDE RECORDS SUMMARY | 2022-02-09 08:07 | XMS_ITS | Encounter Summary ---
:1955 Author Organization [facility] Address [address] [place] [address] Care Team Providers Name Role Phone Unavailable Primary Care Provider Unavailable Encounter Details Date Type Department Care Team Description 10/09/2018 Orders Only Department of Urology [place] PREPARED FOODS SERVICE TEAM MEMBER, C.N.P. [address] [facility] [address] [place], [place] [phone] [place], [place] [phone] (Wo rk) Social History Tobacco Use Types [...] place to sleep or slept in a halfway (including now)? Sex Assigned at Date Recorded Female 05/10/2018 8:56 AM MOUSE BREEDER documented as of this encounter Plan of Treatment Not on filedocumented as of this encounter Visit Diagnoses Not on filedocumented in this encounter
--- OUTSIDE RECORDS SUMMARY | 2022-02-09 08:07 | XMS_ITS | Encounter Summary ---
:1955 Author Organization [facility] Address [address] [place] [address] Care Team Providers Name Role Phone Unavailable [...] or relatives? How often do you attend taoist or More than 4 times per year 08/15/2021 roman catholic services? Do you belong to any clubs or Yes 08/15/2021 organizations such as taoist groups, unions, fraternal or athletic groups, or [...] slept in a senior living (including now)? 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 documented in this encounter Results cheek, left jawline 37 Mohs micrographic surgery-Dermatology Image Exam (10/10/2018 12:05 PM CDT) Specimen (Source) Anatomical Collection Method [...]
--- OUTSIDE RECORDS SUMMARY | 2022-02-09 08:07 | XMS_ITS | Encounter Summary ---
:1955 Author Organization [facility] Address [address] [place] [address] Care Team Providers Name Role Phone Unavailable Primary Care Provider Unavailable Reason for Visit Outpatient (Routine) - Closed Specialty Diagnoses / Procedures Referred By Contact Refer red To Contact Pulmonary Medicine Diagnoses Fatigue Edema Lower Extremity Nodules Pulmonary Multiple Cancer Renal Cell Carcinoma Personal History Ubl, Liana Purcell APRN, [facility] C.N.P., D.N.P. [address] [place] [address] Referral ID Status Reason Start Date Expiration Date Visits V isits Requested Authorized [id number] Closed Specialty 03/19/2019 03/18/2020 1 1 Services Required Encounter Details Date Type Department Care Team Description 03/26/2019 Comprehensive Visit Division of Rian Petty Pulmonary Multiple (Primary Dx); Pulmonary Medicine P, P.A.-C. Fatigue; in [place], Edema Lower Ex tremity; [place] Cancer Renal Cell Carcinoma Personal History [address] [place] [phone] Social History Tobacco Use Types Packs/Day Years [...] or relatives? How often do you attend adventist or More than 4 times per year 08/15/2021 gnosticism services? 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 documented as of this encounter Last Filed Vital Signs Vital Sign Reading Time Taken Comments Blood Pressure 161/84 03/26/2019 8:14 AM SENIOR SOFTWARE SYSTEMS ENGINEER Pulse 63 03/26/2019 8:14 AM SENIOR SOFTWARE SYSTEMS ENGINEER Temperature 36.7 ??C (98.1 ??F) 03/26/2019 8:14 AM SENIOR SOFTWARE SYSTEMS ENGINEER Respiratory Rate - - Oxygen Saturation 97% 03/26/2019 8:14 AM SENIOR SOFTWARE SYSTEMS ENGINEER Inhaled Oxygen Concentration - - Weight 76.9 kg (169 lb 8.5 oz) 03/26/2019 8:14 AM SENIOR SOFTWARE SYSTEMS ENGINEER Height 162.4 cm (5' 3.94) 03/26/2019 8:14 AM SENIOR SOFTWARE SYSTEMS ENGINEER Body Mass Index 29.16 03/26/2019 8:14 AM SENIOR SOFTWARE SYSTEMS ENGINEER documented in this encounter Consult Notes Rian Petty P.A.-C. - 03/26/2019 8:30 AM CST CHIEF COMPLAINT / REASON FOR VISIT Multiple tiny indeterminate pulmonary nodules Referred by Ubl, Liana Purcell APRN, C.N.P., D.N.P. [address] [place] [phone] HISTORY OF PRESENT ILLNESS Karyna Willis is a 63 y.o. female who presents for evaluation of the above concern. The patient john delightful never smoker with a history of a early melanoma and a partial nephrectomy for renal cancer both diagnosed and treated in 2018. She underwent a chest CT scan in September of 2018 that shows some tiny nodules. Follow-up imaging performed on 03/19/2019 showed the development of multiple new tiny nodules measuring 4- 5 mm or less bilaterally. There is no adenopathy. She is is asymptomatic. A few weeks ago she had a slight cold. She lives with her spouse in [place]. There is water in her property, he has no worrisome pet exposures and no hot tub use. SOCIAL HISTORY The patient reports that she has never smoked. She has never used smokeless tobacco. She reports current alcohol use of about 1.0 - 2.0 standard drinks of alcohol per week. She reports that she does not use drugs. FAMILY HISTORY The patient has no history of lung cancer PAST MEDICAL/SURGICAL HISTORY The patient has a past medical history of Anemia (2015), Carcinoma Renal Cell Right (HCC) (07/02/2018), Deficiency Vitamin D, Gastroesophageal Reflux Disease, Hernia Umbilical, Hypertension NOS, LesionLiver (04/2018), Mass Kidney (04/2018), Melanoma Face (HCC), Polyp Colon (2013), Post Operative Nause a/Vomiting, and Pulmonary Nodule Computed Tomography Indeterminate (04/2018). She also has no past medical history of Apnea Sleep Obstructive, Arrhythmia, Asthma NOS, Blood Transfusion No Diagnosis, Chronic Kidney Disease NOS, Chronic Obstructive Pulmonary Disease (HCC), Coronary Artery Disease (Unspecified), Depressive Disorder, Diabetes Mellitus NOS, Embolus Pulmonary (HCC), Heart Failure NOS, Hyperlipidemia, Hypothyroidism, Migraine Headache, Seizure (HCC), Stroke (HCC), Thromboembolism NOS, or Transient Ischemic Attack. The patient has a past surgical history that includes Hysterectomy (2004); Inguinal hernia repair (Left); and Nephrectomy - Partial (Right, 07/02/2018). CURRENT MEDICATION LIST Current Outpatient Medications: ??? acetaminophen (TYLENOL) 500 mg tablet, Take 1 tablet (500 mg total) by mouth every 6 (six) hoursas needed for moderate pain or score 4-6 of 10. (Patient not taking: Reported on 10/09/2018 ), Disp: , Rfl: ??? cimetidine (TAGAMET) 200 mg tablet, Take 200 mg by mouth every morning. , Disp: , Rfl: ??? lisinopril (PRINIVIL,ZESTRIL) 5 mg tablet, Take 5 mg by mouth every morning. , Disp: , Rfl: 4 ??? multivitamin (DAILY MULTIPLE) tablet, Take 1 tablet by mouth every morning. , Disp: , Rfl: Current Facility-Administered Medications: ??? ufkrdqtjbef-rigfxkhla-RVIXFZJjuay 0.25%-1%-1:200,000 injection 2-50 mL, 2-50 mL, infiltration, PRN, Abelardo Heart M.D., 8 mL at 10/10/18 1520 ??? lidocaine-EPINEPHrine 1%-1:200,000 injection 2-50 mL (XYLOCAINE W/EPI), 2-50 mL, infiltration, PRN, Abelardo Heart M.D., 16 mL at 10/10/18 1520 REVIEW OF SYSTEMS Constitutional: Positive for fatigue. Cardiovascular: Positive for swelling in the legs or feet. Hematologic: Positive for abnormal lumps or bumps. The following systems were negative: Skin, Eyes, ENT, Respiratory, GI, , Musculoskeletal, Neuro, Psych A 10-point review of systems is negative except as specified previously. PHYSICAL EXAM BP (!) 161/84 (BP Location: Right arm, Patient Position: Sitting, Cuff Size: Regular) Pulse 63 Temp 36.7 ??C (Tympanic) Ht 162.4 cm Wt 76.9 kg SpO2 97% BMI 29.16 kg/m?? Physical Exam General: Alert and oriented x 3. Accompanied by her spouse Heart: Regular rate and rhythm. Lungs: Clear to auscultation Neuro: Equal strength in both upper extremities Lymph: No cervical, supraclavicular, or axillary nodes. Vessels: Carotid arteries examined and normal. Abdomen: Bowel sounds x 4, no tenderness Extremities: No clubbing, cyanosis, or edema ASSESSMENT / PLAN #1 Nodules Pulmonary Multiple I carefully reviewed the imaging tests with the patient and her today. I showed them small nodules bilaterally. I explained to them that currently they are too small for any further evaluationsbut a follow-up CT scan next year would be reasonable to pursue. If there has been substantial change in any of them that potentially there may be role for a biopsy. I also discussed with them that if these were found to be metastatic kidney cancer there still may not be any role for treatment at thistime. We also discussed that melanoma is a possibility or that a benign process could be the cause of them as well. They are very appreciative my time today. I personally spent over half of a total 45 minutes face to face with the patient in counseling and discussion and/or coordination of care as described above. Case discussed with Dr. Remy. Julio César Petty P.A.-C. [id number] OR SOFTWARE SYSTEMS ENGINEER documented in this encounter Plan of Treatment Not on filedocumented as of this encounter Visit Diagnoses Diagnosis Nodules Pulmonary Multiple - Primary Fatigue Edema Lower Extremity Cancer Renal Cell Carcinoma Personal His tory documented in this encounter
--- OUTSIDE RECORDS SUMMARY | 2022-02-09 08:07 | XMS_ITS | Encounter Summary ---
:1955 Author Organization [facility] Address [address] [place] [address] Care Team Providers Name Role Phone Unavailable Primary Care Provider Unavailable Encounter Details Date Type Department Care Team Description 10/15/2018 Clinical Communication Department of Marimar Goode Dermatology in [place], [place] [phone] [address] [facility] (Work) [place] [address] Social History Tobacco Use Types Packs/Day Years [...] place to sleep or slept in a long-term (including now)? 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 - 10/15/2018 2:36 PM CDT INFORMATION DISCUSSED Patient had Mohs 10/10 of her left mandible for malignant melanoma in situ. She is concerned about infection. Complains of headache, erythema extending to her jaw, and 99.4 degree fever. Serous drainage.There is increasing swelling where the stitches are. She noticed increasing symptoms yesterday. She wonders if she should be seen. PLAN Disposition/Recommendation: RN transferred patient to appointment office for wound check Education: patient/caller able to teach back Caller agreeable to plan of care: yes The following references were used: nursing clinical judgement documented in this encounter Plan of Treatment Not on filedocumented as of this encounter Visit Diagnoses Not on filedocumented in this encounter
--- OUTSIDE RECORDS SUMMARY | 2022-02-09 08:07 | XMS_ITS | Encounter Summary ---
:1955 Author Organization [facility] Address [address] [place] [address] Care Team Providers Name Role Phone Unavailable [...] slept in a care home (including now)? 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 documented in this encounter Results cheek, left jawline 37 Mohs micrographic surgery-Dermatology Image Exam (10/10/2018 12:00 PM CDT) Specimen (Source) Anatomical Collection Method [...]
--- OUTSIDE RECORDS SUMMARY | 2022-02-09 08:07 | XMS_ITS | Encounter Summary ---
:1955 Author Organization [facility] Address [address] [place] [address] Care Team Providers Name Role Phone Unavailable Primary Care Provider Unavailable Encounter Details Date Type Department Care Team Description 03/19/2019 Hospital Encounter Department of Hermelindo Estrada Renal Cell Laboratory Medicine ROSEMARIE Russo C.N .P. Right (HCC) and Pathology, [address] [place] [address] in [facility] [address] [place] [phone] [place] [address] (Work) [place], [place] [phone] [address] (Fax) [phone] Social History Tobacco Use Types Packs/Day Years [...] or relatives? How often do you attend quaker or More than 4 times per year 08/15/2021 mandaeism services? Do you belong to any clubs or Yes 08/15/2021 organizations such as quaker groups, unions, fraternal or athletic groups, or [...] at Date Recorded Female 05/10/2018 8:56 AM MECHANICAL LEAD documented as of this encounter Medications at [...] Date/Time Associated Comments Diagnosis MICROSCOPIC AUTOMATED Routine 03/19/2019 9:09 AM Results for this CDT procedure are i n the results section. URINALYSIS WITH Routine 03/19/2019 9:09 AM Carcinoma Renal Res ults for this MICROSCOPIC CDT Cell Right (HCC) procedure a re in the results section. documented in this encounter Results Microscopic Automated (03/19/2019 9:09 AM CDT) P athologist Signature Microscopy Normal 03/19/2019 [facility] 10:59 AM CDT Specimen Anatomical Collection Method Collection Time Receive d Time (Source) Location / / Volume Laterality Urine 03/19/2019 9:09 AM 9 9:09 CDT AM CDT Hermelindo Estrada APRN, C.N.P. LAB URINE ORDERABLES Performing Organization Address City/State/ZIP Code Phon e Number [facility] - [address] [place], [place] [address] [facility] [place] [address] [facility] [address] Urinalysis with Microscopic: Urine, Voided (03/19/2019 9:09 AM CDT) P athologist Signature Source Void 03/19/2019 [facility] 9:09 AM CDT Appearance Normal Normal 03/19/2019 [facility] 9:41 AM CDT Osmolality, U 188 150 - 1150 03/19/2019 [facility] mOsm/kg 11:22 AM CDT pH, U 6.6 4.5 - 8.0 03/19/2019 [facility] 11:22 AM CDT Comment: ----ADDITIONAL INFORMATION---- This test was developed and its performa nce characteristics determined by [facility] in a manner co nsistent with CLIA requirements. This test has not bee n cleared or approved by the U.S. Food and Drug Admin istration. Glucose <2 0 - 15 mg/dL 03/19/2019 9:41 AM CDT [facility] Protein, U <4 <26 mg/dL 03/19/2019 9:41 AM CDT [facility] Comment: ----ADDITIONAL INFORMATION---- On 11/14/2016 the total protein assay me thod changed resulting in approximately a 15% increase in prote in values. Protein/Osmolality <0.21 <0.42 Ratio 03/19/2019 11:22 AM CDT [facility] Comment: ----ADDITIONAL INFORMATION---- On 11/14/2016 the total protein assay me thod changed resulting in approximately a 15% increase in prote in values. Predicted 24 Hr Protein <164 mg/24 h 03/19/2019 11:22 AM CDT [facility] Predicted Range <664 mg/24 h 03/19/2019 11:22 AM CDT [facility] Hemoglobin, QL Negative Negative 03/19/2019 10:59 AM CDT R COLLIN Specimen Anatomical Collection Method Collection Time Receive d Time (Source) Location / / Volume Laterality Urine (Urine, 03/19/2019 9:09 AM 03/19/20 9:09 Voided) CDT AM CDT Hermelindo Estrada APRN C.N.P. LAB URINE ORDERABLES Performing Organization Address City/State/[facility] Code Phon e Number [facility] - [address] [place], [place] [address] [place] [address] [facility] [address] documented in this encounter Visit Diagnoses Diagnosis Carcinoma Renal Cell Right (HCC) documented in this encounter
--- OUTSIDE RECORDS SUMMARY | 2022-02-09 08:07 | XMS_ITS | Encounter Summary ---
:1955 Author Organization [facility] Address [address] [place] [address] Care Team Providers Name Role Phone Unavailable Primary Care Provider Unavailable Reason for Visit Appointment Request (Routine) - Closed Specialty Diagnoses / Procedures Referred By Contact Refer red To Contact Dermatology Referral ID Status Reason Start Date Expiration Date Visits Requ ested Visits Authorized [id number] Closed 10/15/2018 10/15/2019 1 Encounter Details Date Type Department Care Team Description 10/15/2018 Nurse Only Department of Dermatology Abelardo Heart [place]. [address] [place] [address] in [facility] Alexa Logan R.N. [address] [place] [address] [address] [place] [phone] Social History Tobacco Use Types Packs/Day Years [...] or relatives? How often do you attend orthodoxy or More than 4 times per year 08/15/2021 jewish services? Do you belong to any clubs or Yes 08/15/2021 organizations such as orthodoxy groups, unions, fraternal or athletic groups, or [...] slept in a long term (including now)? 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 - 10/15/2018 4:00 PM CDT Patient returns for wound exam status post mohs for Derm Diagnosis: Malignant Melanoma by Dr. Paulie Heart ([id number]) on October 10, 2018 to left mandible. Patient discussed and seen with supervising advertising sales consultant Supervising Physician:Derm Surgeons: Dr. Prabhjot Canales ([id number]) Patient is concerned that wound may be infected. Patient states she has had a low grade fever since yesterday. 99.2-99.6. Complaints of a headache and chills. Sutures are intact with no drainage, pain,or swelling. Minimal erythema present in the center of incision. Dr. Canales evaluated patient and feels that the symptoms the patient is having is most likely not related to the wound. Sutures removed with no difficulties. Teaching provided to teach: patient and spouse. Evaluation of learning reinforcement of teaching provided. Time spent with patient 30 minutes. documented in this encounter Plan of Treatment Not on filedocumented as of this encounter Visit Diagnoses Not on filedocumented in this encounter
--- OUTSIDE RECORDS SUMMARY | 2022-02-09 08:07 | XMS_ITS | Encounter Summary ---
:1955 Author Organization [facility] Address [address] [place] [address] Care Team Providers Name Role Phone Unavailable Primary Care Provider Unavailable Reason for Referral MRI/CAT/PET Scan (Routine) - Closed Specialty Diagnoses / Procedures Referred By Contact Refer red To Contact Radiology Diagnoses Carcinoma Renal Cell Right (HCC) Nodule Pulmonary Edy Silverio M.D. [facility] Procedures CT Chest without IV Contrast IL CT THORAX WO CNTRST HC CT THORAX WO CNTRST IL CT THORAX WO CNTRST [address] [place] [address] Referral ID Status Reason Start Date Expiration Date Visits Requ ested Visits Authorized [id number] Closed 10/09/2018 10/09/2019 1 1 Reason for Visit MRI/CAT/PET Scan (Routine) - Closed Specialty Diagnoses / Procedures Referred By Contact Refer red To Contact Radiology Diagnoses Carcinoma Renal Cell Right (HCC) Nodule Pulmonary Edy Silverio M.D. [facility] Procedures CT Chest without IV Contrast [place] CT THORAX WO CNTRST HC CT THORAX WO CNTRST [place] CT THORAX WO CNTRST [address] [place] [address] Referral ID Status Reason Start Date Expiration Date Visits Requ ested Visits Authorized [id number] Closed 10/09/2018 10/09/2019 1 1 Encounter Details Date Type Department Care Team Description 10/10/2018 Hospital Encounter Department of Maru Silverio a Renal Cell Right (HCC); Radiology, Symone Wagoner M.D. 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 documented in this encounter Results CT Chest without IV Contrast (10/10/2018 1:46 PM CDT) Anatomical Region Laterality Modality Chest, Thoracic RST LOS, Thoracic ARZ LOS, Thoracic N/A Computed Tomography FLA LOS Specimen (Source) Anatomical Collection Method Collection Time Re ceived Time Location / / Volume Laterality 10/10/2018 2:07 PM CDT Impressions 10/10/2018 4:08 PM CDT IMPRESSION: 1. Small bilateral pulmonary nodules ed suring up to 5 mm are unchanged from 05/05/2018, however remain indeterminate . 2. Superficial subcutaneous nodule in th e midline upper back is unchanged from 07/18/2018, however mildly enlarged from 05/05/2018. This probably reflects a sebaceous cyst, however correlation with physical examination is recommended. Narrative 10/10/2018 4:08 PM CDT EXAM: CT CHEST WITHOUT IV CONTRAST No 3D post-processing performed. COMPARISON: Outside chest CT 07/18/2018, 05/05/2018 FINDINGS: There are multiple small bilateral pulmo nary nodules which are not significantly changed dating back to 05/05/2018. Examp les include: 5 mm anterior right middle lobe nodule (series 3, image 166), 2 mm right middle lobe nodule (image 170), 2 mm upper lobe nodule centrally (image 14 4), 2 mm right lower lobe nodule medially (image 267), and 2 mm left apic al nodule (image 42). No discrete new pulmonary nodules identified. Mild scarr ing or atelectasis in the right lower lobe. Mild biapical scarring. No pneumot horax or pleural effusion. No size significant hilar, mediastinal, or axillary lymphadenopathy. No pericardial effusion. Superficial subcut aneous nodule in the midline upper back to (series 3,image 45) is unchanged from 07/18/2018, however enlarged from 05/05/2018. Mild thoracic spine degenerative changes . No aggressive osseous lesions. Unchanged small hepatic hypodensities, p robably cysts or hemangiomas. Small splenule. Cholelithiasis. Additional fin dings in the abdomen were better evaluated on yesterday's abdominal CT. Procedure Note Milagro Hill M.D. - 10/10/2018Format ting of this note might be different from the original. EXAM: CT CHEST WITHOUT IV CONTRAST No 3D post-processing performed. COMPARISON: Outside chest CT 07/18/2018, 05/05/2018 FINDINGS: There are multiple small bilateral pulmo nary nodules which are not significantly changed dating back to 05/05/2018. Examp les include: 5 mm anterior right middle lobe nodule (series 3, image 166), 2 mm right middle lobe nodule (image 170), 2 mm upper lobe nodule centrally (image 14 4), 2 mm right lower lobe nodule medially (image 267), and 2 mm left apic al nodule (image 42). No discrete new pulmonary nodules identified. Mild scarr ing or atelectasis in the right lower lobe. Mild biapical scarring. No pneumot horax or pleural effusion. No size significant hilar, mediastinal, or axillary lymphadenopathy. No pericardial effusion. Superficial subcut aneous nodule in the midline upper back to (series 3,image 45) is unchanged from 07/18/2018, however enlarged from 05/05/2018. Mild thoracic spine degenerative changes . No aggressive osseous lesions. Unchanged small hepatic hypodensities, p robably cysts or hemangiomas. Small splenule. Cholelithiasis. Additional fin dings in the abdomen were better evaluated on yesterday's abdominal CT. IMPRESSION: 1. Small bilateral pulmonary nodules ed suring up to 5 mm are unchanged from 05/05/2018, however remain indeterminate . 2. Superficial subcutaneous nodule in th e midline upper back is unchanged from 07/18/2018, however mildly enlarged from 05/05/2018. This probably reflects a sebaceous cyst, however correlation with physical examination is recommended. Edy ROJAS CT PROCEDURES documented in this encounter Visit Diagnoses Diagnosis Carcinoma Renal Cell Right (HCC) Nodule Pulmonary documented in this encounter
--- OUTSIDE RECORDS SUMMARY | 2022-02-09 08:07 | XMS_ITS | Encounter Summary ---
:1955 Author Organization [facility] Address [address] [place] [address] Care Team Providers Name Role Phone Unavailable Primary Care Provider Unavailable Encounter Details Date Type Department Care Team Description 10/09/2018 Hospital Encounter Department of Laboratory Betty Brock, [facility] Kidney Medicine and Pathology, In[place]. 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 BASIC METABOLIC Routine 10/09/2018 9:04 AM [facility] Kidney Result s for this PANEL, S/P CDT procedure are i n the results section. documented in this encounter Results CBC without Differential (10/09/2018 9:04 AM CDT) [facility] gist Method Time Signature Hemoglobin 12.2 11.6 - 10/09/2018 [facility] 15.0 g/dL 9:34 AM CDT LABORATORIES - [facility] Hematocrit 39.7 35.5 - 10/09/2018 [facility] 44.9 % 9:34 AM CDT LABORATORIES [facility] Erythrocytes 4.89 3.92 - 10/09/2018 [facility] 5.13 9:34 AM CDT LABORATORIES - x10(12)/L [facility] MCV 81.2 78.2 - 10/09/2018 [facility] 97.9 fL 9:34 AM CDT LABORATORIES - [facility] RBC Distrib Width 15.9 12.2 - 10/09/2018 [facility] 16.1 % 9:34 AM CDT LABORATORIES - [facility] Platelet Count 259 157 - 371 10/09/2018 [facility] x10(9)/L 9:34 AM CDT LABORATORIES - [facility] Leukocytes 5.6 3.4 - 9.6 10/09/2018 [facility] x10(9)/L 9:34 AM CDT LABORATORIES - [facility] Specimen Anatomical Collection Method Collection Time Receive d Time (Source) Location / / Volume Laterality Blood (Blood, 10/09/2018 9:04 AM 10/10/19 19 9:25 Venous) CDT AM CDT Obey Brock M.D. LAB BLOOD ADD-ON Performing Organization Address City/State/ZIP Code Phon e Number [facility] - [address] [place], [place] [address] [facility] (ABNORMAL) BMP (Basic Metabolic Panel) (10/09/2018 9:04 AM CDT) [facility] gist Method Time Signature Potassium, S 4.3 3.6 - 5.2 10/09/2018 [facility] mmol/L 10:06 AM CDT LABORATORIES - [facility] Sodium, S 145 135 - 145 10/09/2018 [facility] mmol/L 10:06 AM CDT LABORATORIES - [facility] Chloride, S 105 98 - 107 10/09/2018 [facility] mmol/L 10:06 AM CDT LABORATORIES - [facility] Bicarbonate, S 26 22 - 29 10/09/2018 [facility] mmol/L 10:06 AM CDT LABORATORIES - [facility] Anion Gap 14 7 - 15 10/09/2018 [facility] 10:06 AM CDT LABORATORIES - [facility] BUN (Blood 19 6 - 21 10/09/2018 [facility] Urea mg/dL 10:06 AM CDT LABORATORIES - Nitrogen), S [facility] Creatinine 1.21 (H) 0.59 - 10/09/2018 [facility] 1.04 10:06 AM CDT LABORATORIES - mg/dL [facility] eGFR-Non 47 (L) >=60 10/09/2018 [facility] Black/ mL/min/BS 10:06 AM CDT LABORATORIES - [place] [facility] Comment: ----ADDITIONAL INFORMATION---- Estimated GFR calculated using the 2009 CKD_EPI creatinine equation. eGFR-Black/ 54 (L) >=60 mL/min/BSA 10/09/2018 10:0 6 [facility] Estonian AM CDT LABORATORIES - [facility] Comment: ----ADDITIONAL INFORMATION---- Estimated GFR calculated using the 2009 CKD_EPI creatinine equation. Calcium, Total, S 9.7 8.8 - 10.2 mg/dL 10/09/2018 10:0 6 AM [facility] CDT LABORATORIES - [facility] S Glucose, S 75 70 - 140 mg/dL 10/09/2018 10:06 AM [facility] CDT LABORATORIES [facility] S Specimen Anatomical Collection Method Collection Time Receive d Time (Source) Location / / Volume Laterality Blood (Blood, 10/09/2018 9:04 AM 10/10/19 9:25 Venous) CDT AM CDT Obey Brock M.D. LAB BLOOD ADD-ON Performing Organization Address City/State/ZIP Code Phon e Number [facility] - [address] [place], [place] [address] [facility] documented in this encounter Visit Diagnoses Diagnosis Mass Kidney documented in this encounter
--- OUTSIDE RECORDS SUMMARY | 2022-02-09 08:07 | XMS_ITS | Encounter Summary ---
:1955 Author Organization [facility] Address [address] [place] [address] Care Team Providers Name Role Phone Unavailable Primary Care Provider Unavailable Reason for Referral MRI/CAT/PET Scan (Routine) - Modified Order Specialty Diagnoses / Procedures Referred By Contact Refer red To Contact Radiology Diagnoses Carcinoma Renal Cell Right (HCC) [facility] Chest with IV Contrast CT Chest without IV Contrast NV CT THORAX WO CNTRST HC CT THORAX WO CNTRST NV CT THORAX WO CNTRST C.N.P. [address] [place] [address] Referral ID Status Reason Start Date Expiration Date Visits V isits Requested Authorized [id number] Modified 10/11/2018 10/11/2019 1 1 Order RI/CAT/PET Scan (Routine) - Closed Specialty Diagnoses / Procedures Referred By Contact Refer red To Contact Radiology Diagnoses Carcinoma Renal Cell Right (HCC) [facility] CT Abdomen Pelvis with IV Contrast CT Abdomen Pelvis without and with IV Contrast NV CT ABD&PELVIS WO/W CNTRST HC CT ABD&PELVIS WO/W CNTRST NV CT ABD&PELVIS WO/W CNTRST C.N.P. [address] [place] [phone] Referral ID Status Reason Start Date Expiration Date Visits Requ ested Visits Authorized [id number] Closed 10/11/2018 10/11/2019 1 1 Reason for Visit MRI/CAT/PET Scan (Routine) - Closed Specialty Diagnoses / Procedures Referred By Contact Refer red To Contact Radiology Diagnoses Carcinoma Renal Cell Right (HCC) Hermelindo Estrada APRN, [facility] Procedures CT Abdomen Pelvis with IV Contrast CT Abdomen Pelvis without and with IV Contrast NV CT ABD&PELVIS WO/W CNTRST HC CT ABD&PELVIS WO/W CNTRST NV CT ABD&PELVIS WO/W CNTRST C.N.P. [address] [place] [phone] Referral ID Status Reason Start Date Expiration Date Visits Requ ested Visits Authorized [id number] Closed 10/11/2018 10/11/2019 1 1 Encounter Details Date Type Department Care Team Description 03/19/2019 Hospital Encounter Department of Hermelindo Estrada Carc inoma Renal Cell Radiology, [place] ROSEMARIE Russo, C.N.PJennifer Right (HCC) [facility], in [address] [place] [phone] [place] [address] [place], [place] (Work) [phone] Social History Tobacco Use Types Packs/Day Years [...] More than 4 times per year 08/15/2021 baptism services? 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 Last Filed Vital Signs Vital Sign Reading Time Taken Comments Blood Pressure - - Pulse - - Temperature - - Respiratory Rate - - Oxygen Saturation - - Inhaled Oxygen Concentration - - Weight - - Height 161.3 cm (5' 3.5) 03/19/2019 10:23 AM CDT Body Mass Index - - documented in this encounter Medications at Time [...] Treatment Scheduled Orders Name Type Priority Associated Diagnoses Order S chedule Creatinine, POCT Point of Care STAT STAT for 1 Occurrences Testing-Docked starting 02/20 Device until 9 documented as of this encounter Procedures Procedure Name Priority Date/Time Associated Comments Diagnosis CT ABDOMEN PELVIS RAD - Routine 03/19/2019 11:07 Carcinoma Renal Re sults for this WITH IV CONTRAST (most inpatients AM CDT Cell Right (HCC) pro cedure are in and all the results outpatients) section. CT CHEST WITH IV RAD - Routine 03/19/2019 11:07 Carcinoma Renal Res ults for this CONTRAST (most inpatients AM CDT Cell Right (HCC) procedu re are in and all the results outpatients) section. CREATININE, POCT, Routine 03/19/2019 10:32 Result s for this B AM CDT procedure are i n the results section. CREATININE, POCT, Routine 03/19/2019 10:32 Result s for this B AM CDT procedure are i n the results section. documented in this encounter Results CT Chest with IV Contrast (03/19/2019 11:07 AM CDT) Anatomical Region Laterality Modality Chest, Thoracic RST LOS, Thoracic ARZ N/A Co mputed Tomography, Computed LOS, Thoracic ARZ LOS, Thoracic FLA Kevin graphy LOS Specimen (Source) Anatomical Collection Method Collection Time Re ceived Time Location / / Volume Laterality 03/19/2019 12:13 PM CDT Impressions 03/19/2019 12:32 PM CDT 1. Numerous new tiny bilateral solid pulmonary nodules which are indeterminate but concerning for metastatic disease. 2. Previously present small and tiny ayaan ateral solid pulmonary nodules are stable. 3. Interval enlargement of a now 10 mm r ound subcutaneous nodule in the upper posterior chest wall. While indeterminat e, this measures fluid attenuation and likely represents an epidermoid/sebaceou s cyst. Narrative 03/19/2019 12:32 PM CDT EXAM: CT CHEST WITH IV CONTRAST No 3D post-processing performed. COMPARISON: [facility] CT chest 019. FINDINGS: A 3 to 4 mm solid nodule in the left low er lobe (series 2 image 544) and numerous additional tiny bilateral pulmo nary nodules, the majority of which measure 1 to 2 mm, are new since 019 (for example, series 2, right upper lobe images 120, 161, 220, 241; right mi ddle lobe images 324, 355; right lower lobe images 230, 283, 415, 445, 471; lef t upper lobe images 171, 189, 194, 204, 207, 220, 244; lingula images 290, 369; left lower lobe images 180, 256, 319, 335, 372, 411, 485). The 5 mm nodule or intrapulmonary lymph node in the right middle lobe (image 324) and scattered additional tiny nodul es are stable (for example, right upper lobe images 149, 163, 237, too 82; right middle lobe image 330; right lower lobe images 374, 525; left upper lobe image 8 2; lingula image 333). Stable mild cylindrical bronchiectasis i n the lower lungs. Mild scattered linear scarring and/or atelectasis in the lung bases. No thoracic lymphadenopathy. No effusion s. A 10 mm round subcutaneous nodule in the upper posterior chest wall (series 2 image 103) has increased from 5 to 6 mm previously. This measures fluid attenuation and likely represents an epi dermoid/sebaceous cyst. Hypertrophic degenerative change thoraci c spine. Unchanged mild anterior wedging of a few mid thoracic vertebral bodies. Mild thoracolumbar curve. This examination was performed in conjun ction with a CT of the abdomen, which will be reported separately. Procedure Note Anthony Foreman M.D. - 03/19/2019Formattin g of this note might be different from the original. EXAM: CT CHEST WITH IV CONTRAST No 3D post-processing performed. COMPARISON: [facility] CT chest . FINDINGS: A 3 to 4 mm solid nodule in the left low er lobe (series 2 image 544) and numerous additional tiny bilateral pulmo nary nodules, the majority of which measure 1 to 2 mm, are new since (for example, series 2, right upper lobe images 120, 161, 220, 241; right mi ddle lobe images 324, 355; right lower lobe images 230, 283, 415, 445, 471; lef t upper lobe images 171, 189, 194, 204, 207, 220, 244; lingula images 290, 369; left lower lobe images 180, 256, 319, 335, 372, 411, 485). The 5 mm nodule or intrapulmonary lymph node in the right middle lobe (image 324) and scattered additional tiny nodul es are stable (for example, right upper lobe images 149, 163, 237, too 82; right middle lobe image 330; right lower lobe images 374, 525; left upper lobe image 8 2; lingula image 333). Stable mild cylindrical bronchiectasis i n the lower lungs. Mild scattered linear scarring and/or atelectasis in the lung bases. No thoracic lymphadenopathy. No effusion s. A 10 mm round subcutaneous nodule in the upper posterior chest wall (series 2 image 103) has increased from 5 to 6 mm previously. This measures fluid attenuation and likely represents an epi dermoid/sebaceous cyst. Hypertrophic degenerative change thoraci c spine. Unchanged mild anterior wedging of a few mid thoracic vertebral bodies. Mild thoracolumbar curve. This examination was performed in conjun ction with a CT of the abdomen, which will be reported separately. IMPRESSION: 1. Numerous new tiny bilateral solid pul monary nodules which are indeterminate but concerning for metastatic disease. 2. Previously present small and tiny ayaan ateral solid pulmonary nodules are stable. 3. Interval enlargement of a now 10 mm r ound subcutaneous nodule in the upper posterior chest wall. While indeterminat e, this measures fluid attenuation and likely represents an epidermoid/sebaceou s cyst. Hermelindo Estrada APRN, C.N.P. IMG CT PROCEDURES CT Abdomen Pelvis with IV Contrast (03/19/2019 11:07 AM CDT) Anatomical Region Laterality Modality Abdomen, Pelvis, Abdominal RST LOS, N/A Comp uted Tomography, Computed Abdominal ARZ LOS, Abdominal FLA LOS Iron ography Specimen (Source) Anatomical Collection Method Collection Time Re ceived Time Location / / Volume Laterality 03/19/2019 12:59 PM CDT Impressions 03/19/2019 1:05 PM CDT 1. Trace new pelvic ascites, of unclear etiology. Examination otherwise stable, without features for recurrent or metast atic disease. 2. Examination performed in conjunction with CT of the chest, which will be reported separately. Narrative 03/19/2019 1:05 PM CDT EXAM: ??CT ABDOMEN PELVIS WITH IV CONTRAST COMPARISON: ??CT 10/09/2018. 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 Unchanged low-attenuation region left lo wer pole right kidney, presumed focal ischemic region. Kidneys otherwise negat juany. Stable scattered lymph nodes in the abdo men and pelvis, without adenopathy. Patent renal veins. Trace new pelvic ascites. No peritoneal nodularity evident. Examination otherwise negative or unchan ged. Hepatic cysts and small hemangiomas. Small accessory splenule. H ysterectomy. Skeletal degenerative changes. Procedure Note Marc Paul M.B., B.Ch. - 2018 EXAM: CT ABDOMEN PELVIS WITH IV CONTRAST COMPARISON: CT 10/09/2018. 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 Unchanged low-attenuation region left lo wer pole right kidney, presumed focal ischemic region. Kidneys otherwise negat juany. Stable scattered lymph nodes in the abdo men and pelvis, without adenopathy. Patent renal veins. Trace new pelvic ascites. No peritoneal nodularity evident. Examination otherwise negative or unchan ged. Hepatic cysts and small hemangiomas. Small accessory splenule. H ysterectomy. Skeletal degenerative changes. IMPRESSION: 1. Trace new pelvic ascites, of unclear etiology. Examination otherwise stable, without features for recurrent or metast atic disease. 2. Examination performed in conjunction with CT of the chest, which will be reported separately. Hermelindo Estrada APRN, C.N.P. IMG CT PROCEDURES (ABNORMAL) Creatinine, POCT (03/19/2019 10:32 AM CDT) athologist Signature Creatinine, 1.1 (H) 0.6 - 1.0 03/19/2019 PCDT POCT, B mg/dL 10:39 AM CDT Comment: ----ADDITIONAL INFORMATION---- Performed at the Point of Care Specimen Anatomical Collection Method Collection Time Receive d Time (Source) Location / / Volume Laterality Blood 03/19/2019 10:32 03/19/2019 AM CDT 10:39 AM CDT Unknown Provider LAB POCT ORDERABLES - DEVICE Performing Organization Address City/State/ZIP Code Phon e Number POC [place] PERFORMING [address] [place] [address] LABS PCDT [facility] [place], [place] [id number] [place] [address] (ABNORMAL) Creatinine, POCT (03/19/2019 10:32 AM CDT) P athologist Signature eGFR-Black/Afri 61 >=60 03/19/2019 PCDT can Citizen Of [place], mL/min/BSA 10:39 AM CDT POCT Comment: ----ADDITIONAL INFORMATION---- Estimated GFR calculated using the 2009 CKD_EPI creatinine equation. eGFR Non-Black/ 53 (L) >=60 mL/min/BSA 03/19/2019 10:39 AM CDT PCDT [place], POCT Comment: ----ADDITIONAL INFORMATION---- Estimated GFR calculated using the 2009 CKD_EPI creatinine equation. Specimen Anatomical Collection Method Collection Time Receive d Time (Source) Location / / Volume Laterality Blood 03/19/2019 10:32 03/19/2019 AM CDT 10:39 AM CDT Unknown Provider LAB POCT ORDERABLES - DEVICE Performing Organization Address City/State/ZIP Code Phon e Number POC [place] PERFORMING [address] [place] [address] LABS PCDT [facility] [place], [place] [id number] [place] [address] documented in this encounter Visit Diagnoses Diagnosis Carcinoma Renal Cell Right (HCC) documented in this encounter Administered Medications Inactive Administered Medications - up to 3 most recent administrations Medication Order MAR Action Action Date Dose Rate Site iohexol 300 mg iodine/mL solution Given 03/19/2019 10:54 AM CDT 140 mL 1-200 mL (OMNIPAQUE) 1-200 mL, intravenous, Once in imaging, contrast, Starting on Sun03/19/19 at 1017, For 1 dose, Imaging Protocol Orders, Dose per Radiant Medication Guidelines sodium chloride (PF) 0.9 % injection 1-1 00 mL Given 03/19/2019 10:54 AM CDT 50 mL 1-100 mL, intravenous, Once, On Sun03/19/19 at 1030, For 1 dose, Imaging Protocol Orders documented in this encounter
--- OUTSIDE RECORDS SUMMARY | 2022-02-09 08:07 | XMS_ITS | Encounter Summary ---
:1955 Author Organization [facility] Address [address] [place] [address] Care Team Providers Name Role Phone Unavailable Primary Care Provider Unavailable Encounter Details Date Type Department Care Team Description 10/15/2018 Ancillary Procedure Department of Dermatology Social History [...] More than 4 times per year 08/15/2021 confucianism services? Do you belong to any clubs [...] slept in a nursing home (including now)? 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 documented in this encounter Results cheek, left jawline 37 Mohs micrographic surgery-Dermatology Image Exam (10/15/2018 12:00 PM CDT) Specimen (Source) Anatomical Location Collection Method / Collectio n Time Received Time / Laterality Volume Narrative [facility] - 10/16/2018 8:14 AM CDT This order has been created and [...]
--- OUTSIDE RECORDS SUMMARY | 2022-02-09 08:07 | XMS_ITS | Encounter Summary ---
:1955 Author Organization [facility] Address [address] [place] [address] Care Team Providers Name Role Phone Unavailable Primary Care Provider Unavailable Encounter Details Date Type Department Care Team Description 12/19/2018 Clinical Communication Department of [place], Dermatology in Maya Ernandez R.N. [place], [place] [phone] [address] [facility] (Work) [place] [address] Social History Tobacco Use Types Packs/Day Years [...] or relatives? How often do you attend jehovah's witness or More than 4 times per year 08/15/2021 amish services? Do you belong to any clubs or Yes 08/15/2021 organizations such as jehovah's witness groups, unions, fraternal or athletic groups, or [...] or slept in a jail (including now)? 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 - 12/19/2018 1:38 PM CDT I called patient back to relay what Dr. Heart said. She was interested in following up here at [place] so she was transferred to the appointment office to see if she could be seen sooner. Telephone Encounter - Abelardo Heart M.D. - 12/19/2018 1:08 PM CDT Highly unlikely for there to be any nerve involvement or venous structures popping out as a result of the surgery. As we've offered on several occasions before, and which she took us up on once before,we are happy to have a look at the site as well. Thanks for letting her know, CJA Telephone Encounter - Maya Holloway R.N. - 12/19/2018 12:37 PM CDT Patient called with a few questions after following up with her local oriental rug stretcher. She is wondering if there is a chance there may have been any nerve involvement during her Mohs procedure to the left jawline that she had on 10/10/18. She says she is experiencing some pain and different sensations. She doesn't feel her heart beat in her chest, but rather her head. She also wonders why her venous structure in her face would be popping out and if that is common. The local oriental rug stretcher says the incision looks great and is healing nicely, but wanted her to follow-up with these questions. documented in this encounter Plan of Treatment Not on filedocumented as of this encounter Visit Diagnoses Not on filedocumented in this encounter
--- OUTSIDE RECORDS SUMMARY | 2022-02-09 08:07 | XMS_ITS | Encounter Summary ---
:1955 Author Organization [facility] Address [address] [place] [address] Care Team Providers Name Role Phone Unavailable [...] or slept in a correction (including now)? 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 documented in this encounter Results cheek, left jawline 37 Mohs micrographic surgery-Dermatology Image Exam (10/10/2018 12:10 PM CDT) Specimen (Source) Anatomical Collection Method [...]
--- OUTSIDE RECORDS SUMMARY | 2022-02-09 08:07 | XMS_ITS | Encounter Summary ---
:1955 Author Organization [facility] Address [address] [place] [address] Care Team Providers Name Role Phone Unavailable Primary Care Provider Unavailable Reason for Referral Outpatient (Routine) - Closed Specialty Diagnoses / Referred By Contact Referred To Contact Procedures Physical Medicine and Diagnoses Edema Lower Extremity Mali Gonzalez [facility] De, Ph.D. [address] [place] [phone] Referral ID Status Reason Start Date Expiration Date Visits Requ ested Visits Authorized [id number] Closed 04/08/2019 04/07/2020 1 1 ECTIONS ATTORNEY Reason for Visit Reason Comments Consult Outpatient (Routine) - Closed Specialty Diagnoses / Procedures Referred By Contact Refer red To Contact Internal Medicine / Diagnoses Lesion Labia Fatigue Edema Lower Extremity Nodules Pulmonary Multiple Cancer Renal Cell Carcinoma Personal History Anxiety Liana Dallas [facility] General Internal LOCK TECHNICIAN, C.N.P., D.N.P. Medicine [address] [place] [phone] Referral ID Status Reason Start Date Expiration Date Visits Requ ested Visits Authorized [id number] Closed 03/19/2019 03/18/2020 1 1 Encounter Details Date Type Department Care Team Description 04/08/2019 Comprehensive Visit Division of General Mathew Dallas APRN, C.N.P., D.N.P. [address] [place] [phone] Nodules Pulmonary Multiple (Primary Dx); Internal Medicine Mali Gonzalez M.D., Ph.D. [address] [place] [phone] Lesion Labia; in [facility]; [place] Edema Lower Extremity; [address] [facility] Cancer Renal Cell Carcinoma Personal History; [place], [place] Anxiety; [phone] Follow Up Exam; [phone] Ascites Social History Tobacco Use Types Packs/Day Years [...] More than 4 times per year 08/15/2021 caodaism services? Do you belong to any clubs [...] at Date Recorded Female 05/10/2018 8:56 AM COLLECTIONS ATTORNEY documented as of this encounter Last Filed Vital Signs Vital Sign Reading Time Taken Comments Blood Pressure 147/83 04/08/2019 1:53 PM COLLECTIONS ATTORNEY Pulse 78 04/08/2019 1:53 PM COLLECTIONS ATTORNEY Temperature - - Respiratory Rate - - Oxygen Saturation - - Inhaled Oxygen Concentration - - Weight 76.8 kg (169 lb 5 oz) 04/08/2019 1:53 PM COLLECTIONS ATTORNEY Height 160.8 cm (5' 3.31) 04/08/2019 1:53 PM COLLECTIONS ATTORNEY Body Mass Index 29.7 04/08/2019 1:53 PM COLLECTIONS ATTORNEY documented in this encounter Consult Notes Mali Gonzalez M.D., Ph.D. 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 She is here to see an assembly machine set up mechanic as she has had multiple specialty evaluations and care from a specialty perspective but has not had a unifying physician. She shared with me that she had history of many years of sharp knife-like fairly focal pain. She shared that it felt like she was sitting on a knife. It was short-lived wanted occurred and she would have several weeks of pain-free intervals between episodes. She sought evaluation numerous times and some of those visits included sonographic evaluation. She was reassured numerous times that there was nothing abnormal causing the pain. Finally in 2004 it was thought that perhaps she was having pelvic pain due to have fibroids so she had a hysterectomy. Of note, she was anemic at the time but she had very heavy periods. Her pain resolved for a short period of time but then it recurred with the same pattern. Her recollection and her is that her pain began about 2-3 years prior to her hysterectomy. The anemia improved but then worsened again. She was not having any GI symptoms or blood in the stool. During the last few months of 2017 she started having dreams. She continued having evalua tions. Understandably she was quite scared. In January and March of 2018 she sought evaluationsbecause of how worried she was. She updated her mammogram which was normal and the rest of her evaluation was unremarkable. In April of 2018 she was seen in the local emergency department. All of her labs were normal except was noted that her D-dimer was quite elevated. The physician indicated thata CT chest was needed and she did not have any evidence of a PE but her large right-sided renal cellcarcinoma was incidentally identified. By imaging it measured 6.7 x 5.5 x 3.9 cm. She was seen here in Urology and underwent partial nephrectomy in June of this year. Final surgical pathology showed the tumor to be 7.5 cm in greatest dimension and a renal cell carcinoma, chromophobe cell type. Shedid not require any adjuvant therapy. She notes that she has always had significant difficulty with certain medications including narcotics. During her hysterectomy there will use a spinal block successfully but her scoliosis worsened in the intervening years and they were not able to do a spinal blocks a general anesthesia was needed when she had her nephrectomy. She was hospitalized for 5 days subsequent to surgery for postoperative ileus. More recently she has been feeling a at ill ease, worried that there continues to be something a miss. 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 Noted on her CT chest from September of 2018 were multiple small bilateral pulmonary nodules not significantly changed since April of 2018 when compared with the prior imaging study. There was no evidence of any adenopathy and no pericardial effusion. The superficial subcutaneous nodule in the midline of her upper back was identified. This was unchanged since June but had enlarged since April of 2018. Of note this was resected yesterday. Follow-up imaging was performed on March 19 and caused understandable worry. CT chest demonstrates that there is a 3-4 mm solid nodule in the left lower lobe and numerous additional tiny bilateral pulmonary nodules mostly 1-2 mm, new since September. There is a 5 mm nodule or intrapulmonary lymph node in the right middle lobe and scattered additional tiny nodules which are stable. CT abdomen and pelvisdemonstrates trace new pelvic ascites of unclear etiology. There were no findings on CT abdomen and pelvis specifically concerning for recurrence or metastatic disease but the pulmonary nodules have raised concerns. She was seen in Pulmonary Medicine earlier this month and observation with follow-up CT next year is recommended given that these are too small for further evaluation. She is noted to be a never smoker and she has no pulmonary symptoms whatsoever. She does have a CT study planned for June to follow-up surgical treatment of her kidney cancer but this may be too early to identify definite change in the pulmonary nodule so follow-up approximately 9-12 months from the most recent imaging is recommended if her June imaging is unchanged. She did see her swimming pool installer and servicer after the ascites was identified and had a pelvic ultrasound. We have not received this but by reports was unremarkable. On review she notes that she has no symptoms that worry her at this time with the exception of her right thigh being larger than her left for the last 2-3 years for unclear reasons. She wears thigh-high compression stockings, 20-30 mmHg. Of note she had no lymph nodes removed at the time of her partial nephrectomy. She used to be physically active on a regular basis but since last year she has been less so. She know she is capable of the exertion because she just spent some time in [facility] on a family trip and she enjoyed quite a lot of walking. She notes that she has been fearful, feelingangry and betrayed given how long she persisted in trying to identify the cause of her pain only learned that she had a large renal cell tumor incidentally identified. Of note her long-standing pain did resolve after her partial nephrectomy. She acknowledges a somewhat down mood but feels that this ismore situational and she does endorse hope for the future and generally positive optimistic attitude. Her worries are compounded by considerable worry about her daughter who is and has preeclampsia and likely was preeclamptic during her last and worry about her snnjjiko-dz-hcu who is currently very early in a and has gestational diabetes. Review of systems is negative for any symptoms suggestive of angina or heart failure. No pulmonary symptoms. She does report that she sometimes wakes up at night feeling anxious, worrying, and with theracing heart. This does not happen during the day. She showed me her blood pressure monitoring. Her diastolic has been quite good but over the last few months her systolic has been intermittently elevated. She found that when she switched her antihypertensive to nighttime dosing her blood pressure became better controlled. She has a primary care provider locally but feels that things have been 2 complex and wants to have a physician as part of her main team. Family history is significant for sudden in her father who at age 49 in the setting of very significant tobacco use. Her mother had breast cancer at 77-70 8 years old and is alive and doing well at age 90. She knows of no other family history of malignancy. She commented on a lesion on the labia but she had evaluated by her swimming pool installer and servicer locally who said itlooked like a ???freckle???and she will follow up with her swimming pool installer and servicer to monitor for any changes. REVIEW OF SYSTEMS A ten point review of systems was performed and negative except as mentioned in the HPI. VITAL SIGNS BP 147/83 (BP Location: Left arm, Patient Position: Sitting, Cuff Size: Regular) Pulse 78 Ht 160.8 cm Wt 76.8 kg BMI 29.70 kg/m?? Body mass index is 29.7 kg/m??. Current Outpatient Medications: ??? lisinopril (PRINIVIL,ZESTRIL) 5 mg tablet, Take 5 mg by mouth every morning. , Disp: , Rfl: 4 ??? multivitamin (DAILY MULTIPLE) tablet, Take 1 tablet by mouth every morning. , Disp: , Rfl: Current Facility-Administered Medications: ??? ozikdpnhhqn-jaignoulk-UWETEURbwae 0.25%-1%-1:200,000 injection 2-50 mL, 2-50 mL, infiltration, PRN, Abelardo Heart M.D., 8 mL at 10/10/18 1520 ??? lidocaine-EPINEPHrine 1%-1:200,000 injection 2-50 mL (XYLOCAINE W/EPI), 2-50 mL, infiltration, PRN, Abelardo Haert M.D., 16 mL at 10/10/18 1520 PHYSICAL EXAM General: Well-nourished, healthy-appearing woman in no apparent distress. She became tearful when talking about her history. HEENT: No scleral icterus or conjunctival injection. [...] skin lesion. Breasts: Moderate and overall symmetric. Both nipples are everted without discharge or lesions. Skinis unremarkable. Palpation reveals no dominant nodules, discrete masses, thickenings, densities, or asymmetries. Spine: Nontender to percussion and palpation throughout. Scoliosis noted. ASSESSMENT/PLAN: #1 Renal cell carcinoma status post partial nephrectomy June 2018 #2 Melanoma in situ, recently resected #3 Multiple pulmonary nodules, new, indeterminate #4 Trace ascites, unclear etiology #5 Hypertension, reasonably well controlled on medication #6 Right thigh swelling #7 History of anemia, likely multifactorial I reviewed things in detail with the patient and her . Offered my encouragement and support. I recommend that she proceed with the appropriate follow-up as scheduled. Assuming there is no changein the June imaging, this may be too early to identified changes his slowly occurring and in that case I would recommend that she have repeat CT of the chest 9-12 months after the most recent imaging. If there is any evidence of increasing ascites, this should be promptly evaluated. This certainlyunderstandable that she is fearful given her experiencing given the indeterminate nature of the findings. She is aware that we have to consider the possibility of metastatic malignancy. We discussed the importance of mindfullness activities, working on maintaining a hopeful positive outlook, and engaging in activities with family and friends. She plans to restart regular physical activity and wants to look at her dietary patterns to improve her overall nutrition. Both of these things will help with her blood pressure management and we agreed that adjusting these lifestyle factors first is preferable to adjusting her medication at this time. I would like to see how her blood pressure response lifestyle modifications. With regards to her thighs swelling, the etiology is unclear. This began before her partial nephrectomy and she did not have any lymph nodes removed during that surgery. Thigh-high compression stockings have been helping. I would like to have her seen in Physical Medicine for further evaluation. I think we do need to consider the possibility of a vascular cause if physical medicine does not identify a specific etiology. With regards to mood, fear and worry, and anger, we discussed in detail. She is not interested in seeing a therapist at this time. She feels that with sometime in distance from her diagnoses this year,and with re-engaging in physical activity and other mindfullness activities, that things will improve from the perspective of her emotional health. She is optimistic and positive. I offered my ongoing encouragement support and we also discussed that if she changes her mind and wishes to see a therapist I would fully support that. With regards to her history of anemia, I suspect this is multifactorial, contributed to both by her heavy menses and quite likely also contributed to by her renal cell carcinoma, given that her anemia improved significantly after hysterectomy but then worsened again. She is no longer anemic. I would like to check a ferritin to make sure that she does not require iron replacement. All of her questions were addressed as [...] with this plan ofcare and very appreciative. PATIENT EDUCATION: Ready to learn, no apparent learning barriers were identified; learning preferences include listening. Explained diagnosis and treatment plan; patient expressed understanding of the content. Over half of a total 90 minutes was spent in counseling and discussion with the patient and coordination of care as described above. Answers for HPI/ROS submitted by the patient on 03/18/2019 Fatigue: Yes No eye issues: Yes No ENT issues: Yes Swelling in the legs or feet: Yes No respiratory issues: Yes No GI issues: Yes No muscle/bone issues: Yes No skin issues: Yes No neurologic issues: Yes No mental health issues: Yes Enlarged lymph nodes: Yes No urinary/reproductive issues: Yes ECTIONS ATTORNEY documented in this encounter Plan of Treatment Scheduled Referrals Name Type Priority Associated Order Schedule Diagnoses Physical Medicine and Outpatient Referral Routine Edema Lower Expected: Rehabilitation - Extremity 04/08/2019 General consult (Approximate ), (clinic) Expires: 04/08/2022 documented as of this encounter Results Ferritin (07/02/2019 8:23 AM COLLECTIONS ATTORNEY) athologist Signature Ferritin, S 13 11 - 307 07/02/2019 DTL mcg/L 10:08 AM COLLECTIONS ATTORNEY Specimen Anatomical Collection Method Collection Time Receive d Time (Source) Location / / Volume Laterality Blood (Blood, 07/02/2019 8:23 AM 07/02/19 20 8:42 Venous) COLLECTIONS ATTORNEY AM COLLECTIONS ATTORNEY Mali Gonzalez M.D., Ph.D. LAB BLOOD ADD-ON Performing Organization Address City/State/ZIP Code Phon e Number [facility] - [address] [place], [place] [address] [facility] [place] [address] Laboratories-[facility] [address] documented in this encounter Visit Diagnoses Diagnosis Nodules Pulmonary Multiple - Primary Lesion Labia Fatigue Edema Lower Extremity Cancer Renal Cell Carcinoma Personal His tory Anxiety Follow Up Exam Ascites documented in this encounter
--- OUTSIDE RECORDS SUMMARY | 2022-02-09 08:07 | XMS_ITS | Encounter Summary ---
:1955 Author Organization [facility] Address [address] [place] [address] Care Team Providers Name Role Phone Unavailable Primary Care Provider Unavailable Encounter Details Date Type Department Care Team Description 03/19/2019 Hospital Encounter Department of Hermelindo Estrada Renal Cell Laboratory Medicine ROSEMARIE Russo C.N .P. Right (HCC) and Pathology, [address] [place] [address] in [facility] [place] [address] [place] [phone] [place] [address] (Work) [place], [place] [phone] (Fax) [phone] Social History Tobacco Use Types Packs/Day Years [...] or relatives? How often do you attend buddhism or More than 4 times per year 08/15/2021 caodaism services? Do you belong to any clubs or Yes 08/15/2021 organizations such as buddhism groups, unions, fraternal or athletic groups, or [...] at Date Recorded Female 05/10/2018 8:56 AM DIVISION OPERATIONS SPECIALIST documented as of this encounter Medications [...] Associated Diagnosis Comme nts CBC WITHOUT Routine 03/19/2019 8:49 AM Carcinoma Renal Cell R esults for this DIFFERENTIAL, B CDT Right (HCC) procedure ar e in the results section. BASIC METABOLIC Routine 03/19/2019 8:49 AM Carcinoma Renal Giulia l Results for this PANEL, S/P CDT Right (HCC) procedure are i n the results section. documented in this encounter Results CBC without Differential (03/19/2019 8:49 AM CDT) P athologist Signature Hemoglobin 13.5 11.6 - 03/19/2019 DTL 15.0 g/dL 9:14 AM CDT Hematocrit 42.8 35.5 - 03/19/2019 DTL 44.9 % 9:14 AM CDT Erythrocytes 5.05 3.92 - 03/19/2019 DTL 5.13 9:14 AM CDT x10(12)/L MCV 84.8 78.2 - 03/19/2019 DTL 97.9 fL 9:14 AM CDT RBC Distrib Width 15.4 12.2 - 03/19/2019 DTL 16.1 % 9:14 AM CDT Platelet Count 220 157 - 371 03/19/2019 DTL x10(9)/L 9:14 AM CDT Leukocytes 5.8 3.4 - 9.6 03/19/2019 DTL x10(9)/L 9:14 AM CDT Specimen Anatomical Collection Method Collection Time Receive d Time (Source) Location / / Volume Laterality Blood (Blood, 03/19/2019 8:49 AM 03/19/20 19 9:08 Venous) CDT AM CDT Hermelindo Estrada APRN, C.N.P. LAB BLOOD ADD-ON Performing Organization Address City/State/ZIP Code Phon e Number [facility] - [address] [place], [place] [address] [facility] [place] [address] [facility] 200 [facility] (ABNORMAL) Basic Metabolic Panel (03/19/2019 8:49 AM CDT) Analysis Performed At Patho logist Time Signature Potassium, S 4.3 3.6 - 5.2 03/19/2019 DTL mmol/L 10:38 AM CDT Sodium, S 142 135 - 145 03/19/2019 DTL mmol/L 10:38 AM CDT Chloride, S 105 98 - 107 03/19/2019 DTL mmol/L 10:38 AM CDT Bicarbonate, S 27 22 - 29 03/19/2019 DTL mmol/L 10:38 AM CDT Anion Gap 10 7 - 15 03/19/2019 DTL 10:38 AM CDT BUN (Blood Urea 15 6 - 21 03/19/2019 DTL Nitrogen), S mg/dL 10:38 AM CDT Creatinine 1.17 (H) 0.59 - 03/19/2019 DTL 1.04 mg/dL 10:38 AM CDT eGFR-Non 49 (L) >=60 03/19/2019 DTL Black/ mL/min/BSA 10:38 AM CDT [place] Comment: ----ADDITIONAL INFORMATION---- Estimated GFR calculated using the 2009 CKD_EPI creatinine equation. eGFR-Black/ 57 (L) >=60 mL/min/BSA 2018 10:38 AM CDT DTL Comment: ----ADDITIONAL INFORMATION---- Estimated GFR calculated using the 2009 CKD_EPI creatinine equation. Calcium, Total, S 9.4 8.8 - 10.2 mg/dL 03/19/2019 10:3 8 AM CDT DTL Glucose, S 61 (L) 70 - 140 mg/dL 03/19/2019 10:38 AM CDT DTL Specimen Anatomical Collection Method Collection Time Receive d Time (Source) Location / / Volume Laterality Blood (Blood, 03/19/2019 8:49 AM 03/19/20 9:08 Venous) CDT AM CDT Hermelindo Estrada APRN, C.N.P. LAB BLOOD ADD-ON Performing Organization Address City/State/ZIP Code Phon e Number [facility] - [address] [place], [place] [address] [facility] [place] [address] [facility] [address] documented in this encounter Visit Diagnoses Diagnosis Carcinoma Renal Cell Right (HCC) documented in this encounter
--- OUTSIDE RECORDS SUMMARY | 2022-02-09 08:07 | XMS_ITS | Encounter Summary ---
:1955 Author Organization [facility] Address [address] [place] [address] Care Team Providers Name Role Phone Unavailable Primary Care Provider Unavailable Encounter Details Date Type Department Care Team Description 10/09/2018 Hospital Encounter Department of Laboratory Betty Brock, [facility] Kidney Medicine and Pathology, In[place]. [facility] in [address] [place], [place] [address] [place] [id number] [place] [address] [phone] Social History Tobacco Use Types Packs/Day Years [...] or relatives? How often do you attend mormon or More than 4 times per year 08/15/2021 buddhist services? Do you belong to any clubs or Yes 08/15/2021 organizations such as mormon groups, unions, fraternal or athletic groups, or [...] at Date Recorded Female 05/10/2018 8:56 AM AUDITING CODER documented as of this encounter Medications at [...] Date/Time Associated Comments Diagnosis MICROSCOPIC AUTOMATED Routine 10/09/2018 10:55 Re sults for this AM CDT procedure are i n the results section. URINALYSIS WITH Routine 10/09/2018 10:55 Mass Kidney Results for this MICROSCOPIC AM CDT procedure are i n the results section. documented in this encounter Results Microscopic Automated (10/09/2018 10:55 AM CDT) P athologist Signature Microscopy Normal 10/09/2018 [facility] 1:08 PM CDT LABORATORIES - [facility] Specimen Anatomical Collection Method Collection Time Receive d Time (Source) Location / / Volume Laterality Urine 10/09/2018 10:55 10/09/2018 AM CDT 10:55 AM CDT Obey Brock M.D. LAB URINE ORDERABLES Performing Organization Address City/State/ZIP Code Phon e Number [facility]ATORIES - [address] [place], [place] [address] [facility] Urinalysis with Microscopic (10/09/2018 10:55 AM CDT) [facility] Method Time Signature Source Midstream 10/09/2018 [facility] 10:55 AM CDT [facility] Appearance Normal Normal 10/09/2018 [facility] 11:30 AM T [facility] Osmolality, U 184 150 - 1150 10/09/2018 [facility] mOsm/kg 12:10 PM T [facility] pH, U 6.9 4.5 - 8.0 10/09/2018 [facility] 12:10 PM T [facility] Comment: ----ADDITIONAL INFORMATION---- This test was developed and its performa nce characteristics determined by [facility] in a manner co nsistent with CLIA requirements. This test has not bee n cleared or approved by the U.S. Food and Drug Admin istration. Glucose <2 0 - 15 mg/dL 10/09/2018 11:30 AM T [facility] S Protein, U <4 <26 mg/dL 10/09/2018 11:30 AM CDT [facility] Comment: ----ADDITIONAL INFORMATION---- On 11/14/2016 the total protein assay me thod changed resulting in approximately a 15% increase in prote in values. Protein/Osmolality <0.22 <0.42 Ratio 10/09/2018 12:10 PM [facility] Comment: ----ADDITIONAL INFORMATION---- On 11/14/2016 the total protein assay me thod changed resulting in approximately a 15% increase in prote in values. Predicted 24 Hr <167 mg/24 h 10/09/2018 12:10 PM [facility] Protein T [facility] S Predicted Range <678 mg/24 h 10/09/2018 12:10 PM [facility] S Hemoglobin, QL Negative Negative 10/09/2018 1:08 PM [place] [facility] Specimen Anatomical Collection Method Collection Time Receive d Time (Source) Location / / Volume Laterality Urine (Urine, 10/09/2018 10:55 10/09/2018 Midstream) AM CDT 10:55 AM CDT Obey Brock M.D. LAB URINE ORDERABLES Performing Organization Address City/State/ZIP Code Phon e Number [facility]IES - [address] [place] [phone] [facility] documented in this encounter Visit Diagnoses Diagnosis Mass Kidney documented in this encounter
--- OUTSIDE RECORDS SUMMARY | 2022-02-09 08:07 | XMS_ITS | Encounter Summary ---
:1955 Author Organization [facility] Address [address] [place] [address] Care Team Providers Name Role Phone Unavailable Primary Care Provider Unavailable Encounter Details Date Type Department Care Team Description 03/31/2019 Orders Only Department of Urology in [facility] [place], [place] C.N.P., D.N.P. [address] [facility] [address] [place] [address] [place] [address] [phone] (Wo rk) Social History Tobacco Use Types [...] or relatives? How often do you attend presybeterian or More than 4 times per year 08/15/2021 synagogue services? Do you belong to any clubs or Yes 08/15/2021 organizations such as presybeterian groups, unions, fraternal or athletic groups, or [...] at Date Recorded Female 05/10/2018 8:56 AM SIDER MECHANIC documented as of this encounter Plan of Treatment Not on filedocumented as of this encounter Visit Diagnoses Not on filedocumented in this encounter
--- OUTSIDE RECORDS SUMMARY | 2022-02-09 08:07 | XMS_ITS | Encounter Summary ---
:1955 Author Organization [facility] Address [address] [place] [address] Care Team Providers Name Role Phone Unavailable Primary Care Provider Unavailable Reason for Visit Outpatient (Routine) - Closed Specialty Diagnoses / Procedures Referred By Contact Refer red To Contact Dermatology Abelardo Heart M.D. [address] [address] Referral ID Status Reason Start Date Expiration Date Visits Requ ested Visits Authorized [id number] Closed 10/24/2018 10/24/2019 1 1 Encounter Details Date Type Department Care Team Description 02/10/2019 Comprehensive Visit Department of Jovani Canales I n Left Upper Arm (Primary Dx); Dermatology in [place], [place] Photo Sensitivity Skin Due To Light Not From Sun; [place], [place] [address] [facility] Anxiety [address] [place] [phone] [phone] Social History Tobacco Use Types Packs/Day Years [...] or slept in a detention (including now)? 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 - 02/10/2019 1:45 PM CDT REFERRING PROVIDER Abelardo Heart M.D. [address] [place] [id number] CHIEF COMPLAINT Skin cancer screening examination HISTORY OF THE PRESENT ILLNESS Mrs. Karyna Willis is a pleasant 63 y.o. female who is coming in today with a prior history of a malignant melanoma in situ, lentigo maligna type, Dorian level I that was identified and biopsied from the left mandible on September 16, 2018, and subsequently treated with Mohs surgery October 10, 2018. Mrs. Willis comes in today having recently undergone a full skin examination but interested in discussing a number of questions. These questions include an ache that she has been experiencing in the left arm that starts near the clavicle and radiates down the left arm (since around December 12, 2018). In addition she has been having some sensitivity to CT scans and other imaging modalities for her skin will become red afterwards. She is also wondering that if the redness that she experiences from time totime in the face could be a subclinical extension of the melanoma that was treated involving the left mandible. ?? PAST MEDICAL HISTORY Malignant melanoma in situ, lentigo maligna type-left mandible (treated with Mohs surgery October 10, 2018) Allergies Allergen Reactions ??? Pantoprazole Other (see comments) swelling to uvula, and rash in groin ??? Hydrochlorothiazide Angioedema Not clearly related but possible. ??? Rabeprazole Rash Groin area PHYSICAL EXAM General: Awake, alert, in no acute distress, and with appropriate affect. Skin: Examination performed limited to the face reveals some mild erythema involving the cheeks witha well-healed scar involving the left cheek going down to the jawline. ?? IMPRESSION AND PLAN #1 History of malignant melanoma in situ, lentigo maligna type-left mandible No signs of recurrence noted on examination today. Recommendations as per below. #2 Pain-left arm I have informed Mrs. Willis that I would recommend she see her primary care physician for an EKG to rule out the possibility of her of heart related ischemia phenomenon. Mrs. Willis is quite confident that this is not heart related but will see her local physician resident programs assistant to obtaining an EKG. Other than that then I have suggested that we could consider having her see a neurologist as the pain symptoms to suggest and nerve involvement type phenomenon. Mrs. Willis will let us know if she would like to pursue a consult with Neurology in the future. #3 Question regarding sensitivity to radiation Mrs. Willis has a CT scan coming up and is wondering how to handle this. I informed her that she should get in to touch with the ordering physician which sounds like is from Urology as well as left the radiology team know that she has a history of sensitivity when she obtains imaging modalities. #4 Anxiety related to skin Mrs. Willis was invited to call at any point future if further questions or concerns arise. Mrs. Willis should sun protect daily and monitor her skin regularly. Full skin examinations in the Dermatology Department would be recommended on an every 6-12 months basis. All questions addressed and answered today, and Mrs. Willis is welcome to call should any questions or concerns arise in the future. ?? PATIENT EDUCATION Ready to learn. No apparent learning barriers were identified. Learning preferences include listening. Explained diagnosis and treatment plan; patient/guardian of patient expressed understanding of thecontent. documented in this encounter Plan of Treatment Not on filedocumented as of this encounter Visit Diagnoses Diagnosis Pain In Left Upper Arm - Primary Photo Sensitivity Skin Due To Light Not From Sun Anxiety documented in this encounter
--- OUTSIDE RECORDS SUMMARY | 2022-02-09 08:07 | XMS_ITS | Encounter Summary ---
:1955 Author Organization [facility] Address [address] [place] [address] Care Team Providers Name Role Phone Unavailable Primary Care Provider Unavailable Reason for Visit Reason Onset Date Comments follows up question 11/25/2018 Encounter Details Date Type Department Care Team Description 11/25/2018 Clinical Communication Department of garrett Silverio up question Urology in Edy Wagoner M.D. [place], [address] [place] [address] [place] [address] [place], [place] [phone] (Work) [phone] Social History Tobacco Use Types Packs/Day Years [...] or relatives? How often do you attend congregational or More than 4 times per year 08/15/2021 scientologist services? Do you belong to any clubs or Yes 08/15/2021 organizations such as congregational groups, unions, fraternal or athletic groups, or [...] for the very basics like Not h praufl at all 08/15/2021 food, housing, medical care, [...] or slept in a alf (including now)? 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 - 11/25/2018 12:29 PM CDT SUBJECTIVE CHIEF COMPLAINT / REASON FOR CALL follows up question Patient is requesting the following information: Mrs. Willis called to determine when she should return for follow-up. PLAN The following information was provided: She was informed she is to be seen every six months for the first three years then annually after three years. Education: patient/caller able to teach back The following references were used: none Telephone Encounter - Shani Hernandes - 11/25/2018 12:15 PM CDT Patient called asking when to schedule her follow up apt. Her care plan says 3, 6, and 12 months. But the last time she was in and saw Jose Roberto, he said 9 months. She is looking for advise, she is worried as she is leaving the country is Oct. And would like to go on the trip with a clean bill of health. documented in this encounter Plan of Treatment Not on filedocumented as of this encounter Visit Diagnoses Not on filedocumented in this encounter
--- OUTSIDE RECORDS SUMMARY | 2022-02-09 08:07 | XMS_ITS | Encounter Summary ---
:1955 Author Organization [facility] Address [address] [place] [address] Care Team Providers Name Role Phone Unavailable Primary Care Provider Unavailable Encounter Details Date Type Department Care Team Description 10/24/2018 Ancillary Procedure Department of Dermatology Social History [...] slept in a group home (including now)? 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 documented in this encounter Results cheek, left jawline 37 Mohs micrographic surgery-Dermatology Image Exam (10/24/2018 12:00 PM CDT) Specimen (Source) Anatomical Collection Method Collection Time Re ceived Time Location / / Volume Laterality 10/24/2018 12:00 PM CDT Narrative [facility] - 10/24/2018 1:58 PM CDT This order has been created [...]
--- OUTSIDE RECORDS SUMMARY | 2022-02-09 08:08 | XMS_ITS | Encounter Summary ---
:1955 Author Organization [facility] Address [address] [place] [address] Care Team Providers Name Role Phone Unavailable Primary Care Provider Unavailable Reason for Referral MRI/CAT/PET Scan (Routine) - Closed Specialty Diagnoses / Procedures Referred By Contact Refer red To Contact Radiology Diagnoses Mass Kidney Obey Brock M.D. [facility] Procedures CT Abdomen without and with IV Contrast and Pelvis with IV Con CT Abdomen Pelvis with IV Contrast MA CT ABD&PELVIS W CNTRST HC CT ABD&PELVIS W CNTRST MA CT ABD&PELVIS W CNTRST MA CT ABD&PELVIS WO/W CNTRST [address] [facility] HC CT ABD&PELVIS WO/W CNTRST MA CT ABD&PELVIS WO/[place] [address] Referral ID Status Reason Start Date Expiration Date Visits Requ ested Visits Authorized [id number] Closed 07/06/2018 07/06/2019 1 1 utpatient (Routine) - Closed Specialty Diagnoses / Procedures Referred By Contact Refer red To Contact Urology Obey Brock M.D. [facility] [address] [place] [address] Referral ID Status Reason Start Date Expiration Date Visits Requ ested Visits Authorized [id number] Closed 07/06/2018 07/06/2019 1 1 3RD MATE Reason for Visit Auth/Cert Specialty Diagnoses / Procedures Referred By Contact Refer red To Contact Diagnoses Other specified disorders of kidney and ureter renal mass Procedures MA NEPHRECTOMY PARTIAL Nephrectomy - Partial Referral ID Status Reason Start Date Expiration Date Visits Requ ested Visits Authorized [id number] 1 1 Encounter Details Date Type Department Care Team Description 07/02/2018 - Hospital Encounter [facility] Waldo Silverio 07/07/2018 [facility], [facility] M.[facility] (Primary Dx) [facility], [address] [facility], [place], [place] Sixth Floor [id number] [place] [address] [place], [place] (Work) [phone] Social History Tobacco Use Types Packs/Day Years [...] or slept in a [facility] (including now)? Sex Assigned at Date Recorded Female 05/10/2018 8:56 AM 3RD MATE documented as of this encounter Last Filed Vital Signs Vital Sign Reading Time Taken Comments Blood Pressure 151/71 07/07/2018 2:00 PM 3RD MATE Pulse 93 07/07/2018 2:00 PM 3RD MATE Temperature 36.7 ??C (98.06 ??F) 07/07/2018 2:00 PM 3RD MATE Respiratory Rate 16 07/07/2018 4:47 AM 3RD MATE Oxygen Saturation 98% 07/07/2018 2:00 PM 3RD MATE Inhaled Oxygen Concentration - - Weight 74.3 kg (163 lb 12.8 oz) 07/06/2018 9:00 AM 3RD MATE Height 158 cm (5' 2.21) 07/02/2018 8:34 AM 3RD MATE Body Mass Index 29.76 07/02/2018 8:34 AM 3RD MATE documented in this encounter Discharge Summaries Obey Brock M.D. - 07/07/2018 9:56 AM CST DISCHARGE SUMMARY BRIEF OVERVIEW Discharge Provider: Edy Silverio M.D. No primary care provider on file. Primary Care Provider Phone Number: None Primary Care Provider Fax Number: None Other Providers: None Admission Date: 07/02/2018 Discharge Date: 07/07/2018 PRINCIPAL DIAGNOSIS No Principal Problem: There is no principal problem currently on the Problem List. Please update theProblem List and refresh. SECONDARY DIAGNOSES Active Problems: Mass Kidney Resolved Problems: * No resolved hospital problems. * Operative Procedures: Scheduled (Al[place]a), Completed (Comp) or Canceled (Can) Case IDs Date Procedure Surgeon Location Status [id number] 07/02/18 Nephrectomy, Partial. Edy Silverio M.D. [facility] OR Comp DISCHARGE DISPOSITION Home or Self Care [1] ACTIVE ISSUES REQUIRING FOLLOW UP - RTC 3mo with labs, CXR, CT abd/pelv None OUTPATIENT FOLLOW UP No future appointments. TEST RESULTS PENDING AT DISCHARGE DETAILS OF HOSPITAL STAY REASON FOR ADMISSION Mass Kidney [facility] HOSPITAL COURSE SURGICAL PROCEDURE: A right open partial nephrectomy was performed without complication. PATHOLOGY: FINAL DIAGNOSIS A. 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 ??The surgical margins are negative for tumor. See synoptic report. SYNOPTIC REPORT Procedure: Partial nephrectomy. Specimen Laterality: Right. Tumor Site: Not specified. Tumor Size: Greatest dimension: 7.5 cm. Tumor Focality: Unifocal. Histologic Type: Chromophobe renal cell carcinoma. Sarcomatoid Features: Not identified. Rhabdoid Features: Not identified. Histologic Grade (WHO/ISUP Grade): Not applicable. Tumor Necrosis: Not identified. Tumor Extension: Tumor limited to kidney. Margins: Uninvolved by invasive carcinoma. Lymphovascular Invasion: Not identified. Regional Lymph Nodes: No lymph nodes submitted or found. ?Number of Lymph Nodes Involved: Not applicable. ?Number of Lymph Nodes Examined: Not applicable. Pathologic Staging (AJCC, 8th edition): ?TNM Descriptors: Not applicable. ?Primary Tumor: pT2. ?Regional lymph nodes: pNX. ?Distant Metastasis: Not applicable. Pathologic Findings in Nonneoplastic Kidney: Insufficient tissue. The synoptic report incorporates information from all relevant surgical material and includes all required data elements of the current [facility] Cancer Protocol. HOSPITAL COURSE: Following the procedure, the patient was transferred to general floor care in stable condition. The post-operative course was uneventful. By the time of dismissal, the patient was ambulatory, tolerating oral intake with no nausea / vomiting, and had pain controlled. DISMISSAL LABS: Hb 11.8 Cr 1.1 DISMISSAL EXAM: General: NAD Lungs: non-labored Abdomen: soft, non-tender, non-distended. CONSULTS ORDERED DURING THIS ADMISSION None CONDITION AT DISCHARGE stable Discharge instructions were provided to the patient and caregiver(s). 3RD MATE documented in this encounter Discharge Instructions Discharge InstructionsDemetria Cruz - 07/03/2018 6:56 AM CST You were discharged from the [facility] Urology - [facility] Service. Please identify this service name if you call with questions after hospitalization. 3RD MATE documented in this encounter Medications at Time of Discharge Medication Sig Dispensed Refills Start Date End Date cimetidine (TAGAMET) Take 200 mg by mouth 0 09/1503/31/2019 200 mg tablet every morning. lisinopril Take 5 mg by mouth 4 04/13/20182019 (PRINIVIL,ZESTRIL) 5 mg every morning. tablet multivitamin (DAILY Take 1 tablet by mouth 0 03/2106/30/2020 MULTIPLE) tablet every morning. acetaminophen (TYLENOL) Take 1 tablet (500 mg 0 0 07/06/2018 03/31/2019 500 mg tablet total) by mouth every 6 (six) hours as needed for moderate pain or score 4-6 of 10. docusate sodium Constipation is common 0 07/06/19 19 10/09/2018 (COLACE) 100 mg capsule following this procedure and may take several weeks to fully resolve. It is recommended that you take over the counter stool softeners such as docusate sodium (Colace) as needed to maintain soft, regular bowel movements. oxyCODONE (ROXICODONE) Take 1 tablet (5 mg 15 tablet 0 06/2110/09/2018 5 mg immediate release total) by mouth every tabletIndications: 4 (four) hours as Acute Pain needed for moderate pain or score 4-6 of 10 or severe pain or score 7-10 of 10 (pain can take oral meds and other analgesics are ineffective) Indication: Acute Pain. sennosides-docusate Take 1 tablet by mouth 0 06/2110/09/2018 sodium (SENOKOT-S) 2 (two) times a day as 8.6-50 mg per tablet needed for constipation (or taking narcotic pain medications). documented as of this encounter Progress Notes Obey Brock M.D. - 07/06/2018 4:48 PM CST I received a call from Mrs. Willis's nurse this afternoon. She reports that the patient said she wondered if she had scabies. Per report, she has had it in the past. On further questioning, the patient denies itching or rash in her finger webs, feet, arms or legs . Without itching or rash, I do not believe she has scabies. If these symptoms and sings would develop they should contact us. Benjamin Kramer M.D. - 07/05/2018 8:21 AM CST SUBJECTIVE Mrs. Willis is a few times overnight with gastric contents after eating solid foods last evening. While she was previously passing gas, she had no flatus last night and has not yet had a bowel movement.She otherwise denies significant pain. She has been ambulating regularly. VITAL SIGNS BP (!) 163/99 (BP Location: Left arm, Patient Position: Lying) Pulse 107 Temp 37.2 ??C (Oral) Resp 16 Ht 158 cm Wt 74.4 kg SpO2 96% BMI 29.80 kg/m?? Afebrile, vital signs stable except for mild hypertension Urine output was 2.4 L yesterday and 600 cc overnight LOLI put out 20 cc yesterday and 40 cc overnight EXAM General: Resting comfortably in the chair Pulm: Non-labored breathing Abdomen: Midline incision is clean dry and intact. Abdomen itself is soft and not distended. No tenderness. LOLI drainage is minimal and serosanguineous. : No Woodward IMPRESSION/REPORT/PLAN # 6.3cm right renal mass s/p right open partial nephrectomy 07/03/18 # HTN # GERD POD3 s/p right open partial nephrectomy. Vomiting overnight. I do not suspect ileus given how soft her abdomen is, but will check an abdominal x-ray and hold her diet for now. Will check labs today as well. Pain: Tylenol, oxycodone, Fentanyl PRN Diet: CLD, ADAT IV Fluids: IV lock when PO >600 cc/day Activity: Ambulate as tolerated x6 DVT Prophylaxis: SQH Bowel Regimen: senna-doc, supp prn Antibiotics: periop completed Urinary catheter: no Drains: LOLI (remove prior to dismissal) Dispo: Inpatient, pending VIGNESH, anticipate 3-5 days Please call [facility] Urology service during the day and [phone] after hours with questions/concerns. Benjamin Kramer M.D. - 07/04/2018 7:52 AM CST SUBJECTIVE Mrs. Willis is well yesterday without significant pain or nausea. She ambulated several times and tolerated the liquid p.o. no acute events overnight except for mild facial flushing but she remained afebrile. She reports mild pain this morning at 2/10. She is passing flatus. VITAL SIGNS BP 160/74 (BP Location: Left arm, Patient Position: Lying) Pulse 96 Temp 37.3 ??C (Oral) Resp 18 Ht 158 cm Wt 76.1 kg SpO2 95% BMI 30.48 kg/m?? Urine output was 1 L yesterday and 2 L overnight LOLI put out 80cc yesterday and 30 cc overnight EXAM General: Resting comfortably in bed Pulm: Non-labored breathing Abdomen: Midline incision is clean dry and intact. Abdomen is soft, nontender, nondistended. LOLI drainage serosanguineous. : No Woodward IMPRESSION/REPORT/PLAN # 6.3cm right renal mass s/p right open partial nephrectomy 07/03/18 # HTN # GERD POD2 s/p right open partial nephrectomy. Doing well. Per pathway. Pain: Tylenol, oxycodone, Fentanyl PRN Diet: General IV Fluids: IV lock when PO >600 cc/day Activity: Ambulate as tolerated x6 DVT Prophylaxis: SQH Bowel Regimen: senna-doc, supp prn Antibiotics: periop completed Urinary catheter: no Drains: LOLI (remove prior to dismissal) Dispo: Inpatient, anticipate 3-5 days. Please call [facility] Urology service during the day and [phone] after hours with questions/concerns. Benjamin Kramer M.D. - 07/03/2018 8:06 AM CST SUBJECTIVE Mrs. Willis midnight. Minimal pain. Mild nausea. She has not ambulated yet. No flatus yet. VITAL SIGNS BP (!) 122/48 (BP Location: Left arm;Upper, Patient Position: Lying) Pulse 84 Temp 36.6 ??C (Oral) Resp 16 Ht 158 cm Wt 73.4 kg SpO2 98% BMI 29.40 kg/m?? Urine output was 1.1 L yesterday and 700 cc overnight LOLI put out 30 cc yesterday and 60 cc overnight EXAM General: Resting comfortably in bed Pulm: Non-labored breathing Abdomen: Midline incision covered with a dry bandage. Abdomen is soft, nontender, nondistended. LOLI drainage sanguineous. : Woodward catheter is draining dark yellow urine LABS Hemoglobin 11.0 from 13.6 White blood cell count 10.3 Platelets 157 Creatinine 1.1 from 1.1 IMPRESSION/REPORT/PLAN # 6.3cm right renal mass s/p right open partial nephrectomy 07/03/18 # HTN # GERD POD1 s/p right open partial nephrectomy. Doing well. UCO this AM. Rest per pathway. Pain: Tylenol, oxycodone, Fentanyl PRN Diet: CLD ADAT IV Fluids: IV lock when PO >600 cc/day Activity: Ambulate as tolerated x6 DVT Prophylaxis: SQH Bowel Regimen: senna-doc, supp prn Antibiotics: periop completed Urinary catheter: UCO today Drains: LOLI (remove prior to dismissal) Dispo: Inpatient, anticipate 3-5 days. Please call [facility] Urology service during the day and [phone] after hours with questions/concerns. 3RD MATE documented in this encounter H&P Notes Alexa Rashid M.D. - 07/02/2018 2:26 PM CST INTERVAL HISTORY AND PHYSICAL PRE-PROCEDURE UPDATE H&P reviewed. The patient was examined and there are no significant changes to the H&P. Alexa Rashid M.D. 3RD MATE Source Note - Mali Middleton M.D. - 07/01/2018 2:00 PM 3RD MATE SUBJECTIVE CHIEF COMPLAINT/REASON FOR VISIT No chief complaint on file. HISTORY OF PRESENT ILLNESS Mrs. Willis is a pleasant 63-year-old lady in general good health being seen today for listing visit prior to planned right partial nephrectomy tomorrow for 6.3 cm right renal mass. This will be performed through midline incision. Patient has been seen by anesthesia and cleared for surgery tomorrow. She has no new concerns and no changes in her general health status since her visit in May. REVIEW OF SYSTEMS All other systems reviewed and are negative. OBJECTIVE There were no vitals filed for this visit. PHYSICAL EXAM Constitutional: She is oriented to person, place, and time. She appears well- developed and well-nourished. No distress. HENT: Head: Normocephalic and atraumatic. Eyes: Conjunctivae are normal. Right eye exhibits no discharge. Left eye exhibits no discharge. No scleral icterus. Neck: Normal range of motion. Pulmonary/Chest: Effort normal. No respiratory distress. Abdominal: Abdomen appears normal and soft. Musculoskeletal: Normal range of motion. Neurological: She is alert and oriented to person, place, and time. Skin: Skin is warm and dry. She is not diaphoretic. Psychiatric: She has a normal mood and affect. Her behavior is normal. ASSESSMENT / PLAN There is no problem list on file for this patient. Data review: Hemoglobin 13.6, creatinine 1.11 (baseline 0.9) #1 6.3 cm right renal mass #2 Hypertension It was a pleasure to meet Mrs. Willis today for listing visit prior to planned partial nephrectomy tomorrow through midline incision. She has been seen by anesthesia and cleared for planned procedure. We discussed logistics of her surgery day, including report location, number to call for report time, and NPO instructions. We discussed the risks, benefits, alternatives to proceeding with planned procedure tomorrow. Risks include risk of anesthesia, up to including , as well as risks of the procedure itself. Specifically, we discussed the risk that we would not be able to perform partial nephrectomy in would need toremove her entire kidney. We also discussed risks specific to partial nephrectomy, including urine leak and increased bleeding risk. Patient understands and wishes to proceed. Informed consent was signed my presence. Multiple excellent questions were answered. Plan: - proceed with planned surgery tomorrow Patient discussed with Dr. Silverio, who was in agreement with the plan. Signed by: Anne-Marie Middleton M.D. 07/01/2018 5:27 PM 3RD MATE documented in this encounter Nursing Notes Patrick Ortiz R.N. - 07/07/2018 2:50 PM CST Patient discharged home with after the LOLI was pulled out and the cipro 500mg oral administered per sx order. Vital signs were within limit, patient denied nausea, pain in the abdomen,LOLI site and refused pain medication. Escort took patient to the pharmacy. 3RD MATE Patrick Ortiz R.N. - 07/07/2018 1:53 PM CST Goals: Clinical Goals for the Shift: Patients pain will be adequately managed throughout the shift. Identify possible barriers to meeting goals/advancing plan of care: None Stability of the patient: Moderately Stable - Low risk of patient condition declining or worsening End of Shift Summary: Patient denied pain at the end of the shift. 3RD MATE Deidra Talavera RJuliann - 07/06/2018 7:00 PM CST Goals: Clinical Goals for the Shift: Patient will have improved nausea level during shift Identify possible barriers to meeting goals/advancing plan of care: None Stability of the patient: Moderately Stable - Low risk of patient condition declining or worsening End of Shift Summary: Patient had a little bit of nausea today. She would like to hold off on medication. Patient was transferred to room [facility] and placed on isolation as a precaution, as she stated she wondered if the scabies are gone as she was treated multiple times over the summer and fall. Ciara Lopez R.N. - 07/06/2018 6:11 AM CST Goals: Clinical Goals for the Shift: Patient will have improved nausea level during shift Identify possible barriers to meeting goals/advancing plan of care: None Stability of the patient: Moderately Stable - Low risk of patient condition declining or worsening End of Shift Summary: Pt had a restful night of sleep between nursing cares. Pt noticed her urine has changed from clear yellow, to a brown (old blood) looking color with small clots. She is also feeling hot but vital signs continue to be stable. fisher scallop notified about change in urine color. Will continue to monitor. Deidra Watson R.N. - 07/05/2018 6:40 PM CST Goals: Clinical Goals for the Shift: Patient will have improved nausea level during shift Identify possible barriers to meeting goals/advancing plan of care: abdominal distention Stability of the patient: Moderately Stable - Low risk of patient condition declining or worsening End of Shift Summary: Patient had reduced nausea severity during shift. Patient was able to pass gasand had BM x2. Patient continues to have anxiety and needs some reassurance at times. Patient is able to ambulate independently, and sometimes just needs a little encouragement. 3RD MATE Lianna Lambert R.N. - 07/05/2018 7:22 AM CST Goals: Clinical Goals for the Shift: Patient will cope effectively during shift today. Identify possible barriers to meeting goals/advancing plan of care: None Stability of the patient: Moderately Stable - Low risk of patient condition declining or worsening End of Shift Summary: Patient had a few bouts of emesis overnight, trouble keeping food down howeverrepeated refused scopolamine patch. Convinced she is sick with a bug rather than complications/side effects of surgery. Jessica Aragon R.N. - 07/04/2018 2:58 PM CST DISCHARGE PLANNING ??? Patient discharge needs identified Progressing INFECTION - ADULT ??? Absence of infection during hospitalization Progressing KNOWLEDGE DEFICIT ??? Patient/family/caregiver demonstrates understanding of disease process, treatment plan, medications, and discharge instructions Progressing PAIN - ADULT ??? PT VERBALIZES/DEMONSTRATES ADEQUATE COMFORT LEVEL OR BASELINE Progressing SAFETY ADULT ??? Maintain a safe environment Progressing SAFETY ADULT - RISK FOR FALL AND OR FALL INJURY ??? Patient remains free from fall/fall injury Progressing SKIN/TISSUE INTEGRITY ??? Skin/Tissue integrity maintained or improved Progressing ??? Oral and Nasal mucous membranes remain intact Progressing Goals: Clinical Goals for the Shift: Patient will cope effectively during shift today. Identify possible barriers to meeting goals/advancing plan of care: None Stability of the patient: Moderately Stable - Low risk of patient condition declining or worsening End of Shift Summary: Pt up to the shower and ambulating today with . States she is more weary today on POD2 than yesterday. Currently visiting with family. Pain under control with PRN tylenol. Electronically signed by: Jessica Dhillon R.N. 07/04/18 2:59 PM 3RD MATE Lianna Lambert R.N. - 07/03/2018 11:09 PM CST Goals: Clinical Goals for the Shift: Patient will ambulate and report adequate pain control throughout the shift. Identify possible barriers to meeting goals/advancing plan of care: Surgical Pain Stability of the patient: Moderately Stable - Low risk of patient condition declining or worsening End of Shift Summary: Patient ambulated three times this shift and had 1/10 pain all shift. Chio Levy R.N. - 07/03/2018 10:21 AM CST Goals: Clinical Goals for the Shift: Patient will ambulate and report adequate pain control throughout the shift. Identify possible barriers to meeting goals/advancing plan of care: None Stability of the patient: Moderately Stable - Low risk of patient condition declining or worsening End of Shift Summary: Patient ambulated 4 times throughout the shift. Patient reporting adequate pain control. Patient's nausea improved and didn't require use of scopolamine patch. Patient voiding. DISCHARGE PLANNING ??? Patient discharge needs identified Progressing INFECTION - ADULT ??? Absence of infection during hospitalization Progressing KNOWLEDGE DEFICIT ??? Patient/family/caregiver demonstrates understanding of disease process, treatment plan, medications, and discharge instructions Progressing PAIN - ADULT ??? PT VERBALIZES/DEMONSTRATES ADEQUATE COMFORT LEVEL OR BASELINE Progressing SAFETY ADULT ??? Maintain a safe environment Progressing 3RD MATE Kristi Mo R.N. - 07/03/2018 5:03 AM CST Goals: Patient will have minimal pain this shift. Identify possible barriers to meeting goals/advancing plan of care: none Stability of the patient: Moderately Stable - Low risk of patient condition declining or worsening End of Shift Summary: Patient was able to rest most of the shift comfortably. She did some nausea and emesis which was resolved with Zofran. 3RD MATE documented in this encounter OR Notes Op Note - Edy Silverio M.D. - 07/02/2018 3:11 PM CST FULL OP NOTE Procedure(s) (LRB): Nephrectomy, Partial. (Right) Surgeon(s) and Role: * Edy Silverio M.D. - Primary * Alexa Rashid M.D. - Other [employer] * Ken Cobb M.D. Anesthesia Type: General with pain block Pre-Operative Diagnosis: renal mass. Post-Operative Diagnosis: Same as pre-operative diagnosis Findings: 1. Omentum adherent to falciform/peritoneum 2. Uncomplicated right partial nephrectomy 3 Total cold ischemia time: 19minutes 4. Renorraphy hemostatic 5. Placement of LOLI in RUQ 6. Negative margins on preliminary pathology Complications: None Description of Procedure: After informed consent was obtained and patient identity was confirmed, the patient was brought to OR 405 where she was prepped and draped in the standard sterile fashion. The patient was positioned with all pressure points adequately padded. We then performed a procedural pause confirming patient identity, laterality, and appropriate prophylactic antibiotic administration. An upper midline incision was made and dissection was carried down to the peritoneum, which entered sharply. We inspected the stomach, spleen, liver, colon, small bowel and pelvis and all were within normal limits. The peritoneum, omentum, and falciform ligament were fairly adherent/enmeshed. The ascending colon was then reflected medially exposing the right kidney. The duodenum was Kocherized. The renal hilum was then dissected superiorly and inferiorly, to aid in subsequent clamp placement. We purposefully avoided skeletonization of the individual vessels. There were two renal veins and a single renal artery. The kidney was mobilized to allow for visualization of the posterior inferior mass. Perinephric fat was carefully dissected away. The patient was then given 12.5 g of mannitol and 20 mg of Lasix. The renal pedicle was then clamped and ice was packed around the kidney. The capsule of the kidney was incised around the edge of the tumor margin with electrocautery. The tumor was then removed with a combination of blunt and sharp dissection taking care not to violate the tumor capsule. Individual bleeding points and collecting system defects were suture ligated with [id number] sutures using 4-0 Vicryl. Floseal was placed in the defect. Renorrhaphy was then performed with a deep layer of Vicryl and superficial la jacob and capsule with a barbed V-lock suture. No pledgets or bolsters were used. The renal pedicle was then unclamped for a total of 19 minutes of cold ischemia time. Adequate hemostasis was achieved. Aerosolized tissue sealant was then used to coat the retroperitoneum. A closed suction drain was brought out through a separate stab incision. The cecum was tacked down and the root of the mesentery was closed with 2-0 Chromic. The fascia was reapproximated using running PDS suture and interrupted Vicryls. A deep dermal running chromic stitch was used. Skin was closed using running Monocryl. The patient was then awakened from anesthesia and taken to the PACU in stable condition. Specimens ID Type Source Tests Collected by Time A : Right renal mass Tissue Kidney, Right SURGICAL PATHOLOGY, [facility] Edy Silverio M.D. 07/02/2018 1722 Drains GI Tubes (Adults) Orogastric Center (Active) Placement Verification Gastric residual 07/02/2018 3:12 PM Suction Intermittent;Medium 07/02/2018 3:12 PM GI Tubes (Adults) Orogastric Center (Active) Closed/Suction Drain 1 Right Abdomen Bulb 10 Fr. (Active) Indwelling Urinary Catheter Non-latex 16 Fr. (Active) Collection Container Standard drainage bag 07/02/2018 2:47 PM Estimated Blood Loss 200 mL Implants Implant Name Type Inv. Item Serial No. Cloth Bin Packer Lot No. LRB No. Used Action CLP HRZN TI 6 CLP LG ORNG - SNA - [id number] Hardware e.g. pins/screws/rods CLP HRZN TI 6 CLP LG ORNG NA [employer] Right 1 Implanted CLP HRZN TI 6 CLP MD FABI - SNA - [id number] Hardware e.g. pins/screws/rods CLP HRZN TI 6 CLP MD FABI NA [employer] Right 1 Implanted CLP HRZN TI 6 CLP MD-LG GRN - SNA - [id number] Hardware e.g. pins/screws/rods CLP HRZN TI 6 CLP MD-LG GRN NA [employer] Right 1 Implanted CLP HRZN TI 6 CLP MD FABI - S0000 - [id number] Hardware e.g. pins/screws/rods CLP HRZN TI 6 CLP MDBLU 0000 [employer] [id number] Right 1 Implanted Alexa Rashid M.D. 3RD MATE documented in this encounter Miscellaneous Notes Hospital Course - Benjamin Carlos M.D. - 07/05/2018 2:46 PM CST SURGICAL PROCEDURE: A right open partial nephrectomy was performed without complication. PATHOLOGY: FINAL DIAGNOSIS A. 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 ??The surgical margins are negative for tumor. See synoptic report. SYNOPTIC REPORT Procedure: Partial nephrectomy. Specimen Laterality: Right. Tumor Site: Not specified. Tumor Size: Greatest dimension: 7.5 cm. Tumor Focality: Unifocal. Histologic Type: Chromophobe renal cell carcinoma. Sarcomatoid Features: Not identified. Rhabdoid Features: Not identified. Histologic Grade (WHO/ISUP Grade): Not applicable. Tumor Necrosis: Not identified. Tumor Extension: Tumor limited to kidney. Margins: Uninvolved by invasive carcinoma. Lymphovascular Invasion: Not identified. Regional Lymph Nodes: No lymph nodes submitted or found. ?Number of Lymph Nodes Involved: Not applicable. ?Number of Lymph Nodes Examined: Not applicable. Pathologic Staging (AJCC, 8th edition): ?TNM Descriptors: Not applicable. ?Primary Tumor: pT2. ?Regional lymph nodes: pNX. ?Distant Metastasis: Not applicable. Pathologic Findings in Nonneoplastic Kidney: Insufficient tissue. The synoptic report incorporates information from all relevant surgical material and includes all required data elements of the current [facility] Cancer Protocol. HOSPITAL COURSE: Following the procedure, the patient was transferred to general floor care in stable condition. The post-operative course was uneventful. By the time of dismissal, the patient was ambulatory, tolerating oral intake with no nausea / vomiting, and had pain controlled. DISMISSAL LABS: Hb 11.8 Cr 1.1 DISMISSAL EXAM: General: NAD Lungs: non-labored Abdomen: soft, non-tender, non-distended. 3RD MATE documented in this encounter Plan of Treatment Scheduled Referrals Name Type Priority Associated Diagnoses Order S [facility] office Outpatient Referral Routine Expect ed: visit (clinic) 10/02/2018 (Approximate), Expires: 07/05/2021 documented as of this encounter Procedures Procedure Name Priority Date/Time Associated Comments Diagnosis DX ABDOMEN PORTABLE RAD - Routine 07/07/2018 11:13 Res ults for this ANTERIOR POSTERIOR (most inpatients AM 3RD MATE proce dure are in 1 VIEW and all the results outpatients) section. ADULT OXYGEN Routine 07/06/2018 8:01 THERAPY AM 3RD MATE ADULT OXYGEN Routine 07/05/2018 8:01 THERAPY PM 3RD MATE REMOTE OXIMETRY Routine 07/05/2018 8:01 MONITORING CONT. PM 3RD MATE PULSE OXIMETRY, Routine 07/05/2018 8:01 CONTINUOUS PM 3RD MATE DX ABDOMEN 1 VIEW RAD - Routine 07/05/2018 10:52 Resul ts for this (most inpatients AM 3RD MATE procedure a re in and all the results outpatients) section. CBC WITHOUT Routine 07/05/2018 10:18 Results for this DIFFERENTIAL, B AM 3RD MATE procedure ar e in the results section. BASIC METABOLIC Routine 07/05/2018 10:18 Results for this PANEL, S/P AM 3RD MATE procedure are i n the results section. ADULT OXYGEN Routine 07/05/2018 8:02 THERAPY AM 3RD MATE ADULT OXYGEN Routine 07/04/2018 8:01 THERAPY PM 3RD MATE REMOTE OXIMETRY Routine 07/04/2018 8:01 MONITORING CONT. PM 3RD MATE PULSE OXIMETRY, Routine 07/04/2018 8:01 CONTINUOUS PM 3RD MATE ADULT OXYGEN Routine 07/04/2018 8:01 THERAPY AM 3RD MATE ADULT OXYGEN Routine 07/03/2018 8:01 THERAPY AM 3RD MATE REMOTE OXIMETRY Routine 07/03/2018 8:01 MONITORING CONT. AM 3RD MATE PULSE OXIMETRY, Routine 07/03/2018 8:01 CONTINUOUS AM 3RD MATE CBC WITHOUT Routine 07/03/2018 7:44 Results for this DIFFERENTIAL, B AM 3RD MATE procedure ar e in the results section. BASIC METABOLIC Routine 07/03/2018 7:44 Results f or this PANEL, S/P AM 3RD MATE procedure are i n the results section. ADULT OXYGEN Routine 07/02/2018 8:58 THERAPY PM 3RD MATE ADULT OXYGEN Routine 07/02/2018 8:58 THERAPY PM 3RD MATE PULSE OXIMETRY, Routine 07/02/2018 8:58 CONTINUOUS PM 3RD MATE PULSE OXIMETRY, Routine 07/02/2018 8:58 CONTINUOUS PM 3RD MATE PULSE OXIMETRY, Routine 07/02/2018 8:29 CONTINUOUS PM 3RD MATE PULSE OXIMETRY, Routine 07/02/2018 8:29 CONTINUOUS PM 3RD MATE REMOTE OXIMETRY Routine 07/02/2018 8:28 MONITORING CONT. PM 3RD MATE REMOTE OXIMETRY Routine 07/02/2018 8:28 MONITORING CONT. PM 3RD MATE REMOTE OXIMETRY Routine 07/02/2018 8:28 MONITORING CONT. PM 3RD MATE DX ABDOMEN 1 VIEW RAD - Routine 07/02/2018 6:59 Result s for this (most inpatients PM 3RD MATE procedure a re in and all the results outpatients) section. ADULT OXYGEN Routine 07/02/2018 6:53 THERAPY PM 3RD MATE ADULT OXYGEN Routine 07/02/2018 6:53 THERAPY PM 3RD MATE SURGICAL PATHOLOGY, Routine 07/02/2018 5:22 Resul ts for this [facility] PM 3RD MATE procedure are i n the results section. NEPHRECTOMY - 07/02/2018 2:12 renal mass. PARTIAL PM 3RD MATE documented in this encounter Results CT Abdomen without and with IV Contrast and Pelvis with IV Con (10/09/2018 12:00 PM CDT) Anatomical Region Laterality Modality Abdomen, Pelvis, Abdominal RST LOS, Abdominal ARZ LOS, N/A Computed Tomography Abdominal FLA LOS Specimen (Source) Anatomical Collection Method Collection Time Re ceived Time Location / / Volume Laterality 10/09/2018 12:29 PM CDT Impressions 10/09/2018 2:07 PM CDT IMPRESSION: ??Right partial nephrectomy with no evidence of residual or recurrent disease. Narrative 10/09/2018 2:07 PM CDT EXAM: ??CT ABDOMEN WITHOUT AND WITH IV CONTRAST AND PELVIS WITH IV CON COMPARISON: ??Outside CT abdomen/pelvis 05/06/2018. FINDINGS: ?? : Status post partial right nephrectom y (07/02/2018) for pathology proven chromophobe RCC; no evidence of residual or recurrent disease. Focal ischemic area in the ??lateral aspect of the righ t lower pole (,). No abdominal/pelvic adenopathy. Simple righ t renal cyst. Kidneys otherwise negative. No urinary calculi. Hysterecto my. 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 Splenule. Thoracolumbar curve. Mild dege nerative change both hips. Lung bases are clear. Remainder of abdomen negative or without significant change. Procedure Note Jace Liao M.D. - 10/09/2018Format ting of this note might be different from the original. EXAM: CT ABDOMEN WITHOUT AND WITH IV CON TRAST AND PELVIS WITH IV CON COMPARISON: Outside CT abdomen/pelvis . FINDINGS: : Status post partial right nephrectom y (07/02/2018) for pathology proven chromophobe RCC; no evidence of residual or recurrent disease. Focal ischemic area in the lateral aspect of the right lower pole (,). No abdominal/pelvic adenopathy. Simple righ t renal cyst. Kidneys otherwise negative. No urinary calculi. Hysterecto my. 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 Splenule. Thoracolumbar curve. Mild dege nerative change both hips. Lung bases are clear. Remainder of abdomen negative or without significant change. IMPRESSION: Right partial nephrectomy wi th no evidence of residual or recurrent disease. Obey Brock M.D. IMG CT PROCEDURES Urinalysis with Microscopic (10/09/2018 10:55 AM CDT) [facility] gist Method Time Signature Source Midstream 10/09/2018 [facility] 10:[address] [facility] Appearance Normal Normal 10/09/2018 [facility] 11:[address] [facility] Osmolality, U 184 150 - 1150 10/09/2018 [facility] mOsm/kg 12:[address] [facility] pH, U 6.9 4.5 - 8.0 10/09/2018 [facility] 12:[address] [facility] Comment: ----ADDITIONAL INFORMATION---- This test was developed and its performa nce characteristics determined by [facility] in a manner co nsistent with CLIA requirements. This test has not bee n cleared or approved by the U.S. Food and Drug Admin istration. Glucose <2 0 - 15 mg/dL 10/09/2018 11:30 AM CDT [facility] Protein, U <4 <26 mg/dL 10/09/2018 11:30 AM T [facility] Comment: ----ADDITIONAL INFORMATION---- On 11/14/2016 the total protein assay me thod changed resulting in approximately a 15% increase in prote in values. Protein/Osmolality <0.22 <0.42 Ratio 10/09/2018 12:10 PM [facility] Comment: ----ADDITIONAL INFORMATION---- On 11/14/2016 the total protein assay me thod changed resulting in approximately a 15% increase in prote in values. Predicted 24 Hr <167 mg/24 h 10/09/2018 12:10 PM [facility] Protein T [facility] Predicted Range <678 mg/24 h 10/09/2018 12:10 PM [facility] Hemoglobin, QL Negative Negative 10/09/2018 1:08 PM [place] [facility] Specimen Anatomical Collection Method Collection Time Receive d Time (Source) Location / / Volume Laterality Urine (Urine, 10/09/2018 10:55 10/09/2018 Midstream) AM CDT 10:55 AM CDT Obey Brock M.D. LAB URINE ORDERABLES Performing Organization Address City/State/ZIP Code Phon e Number [facility] - [address] [place], [place] [address] [facility] DX Chest AP or PA and Lateral [...] Thoracolumbar curve with hypertrophic degenerative changes. Obey Brock M.D. IMG DIAGNOSTIC IMAGING PROCE DURES CBC without Differential (10/09/2018 9:04 AM CDT) [facility] gist Method Time Signature Hemoglobin 12.2 11.6 - 10/09/2018 [facility] 15.0 g/dL 9:34 AM CDT LABORATORIES - [facility] Hematocrit 39.7 35.5 - 10/09/2018 [facility] 44.9 % 9:34 AM CDT LABORATORIES - [facility] Erythrocytes 4.89 3.92 - 10/09/2018 [facility] 5.13 9:34 AM CDT LABORATORIES - x10(12)/L [facility] MCV 81.2 78.2 - 10/09/2018 [facility] 97.9 fL 9:34 AM CDT LABORATORIES - [facility] RBC Distrib Width 15.9 12.2 - 10/09/2018 [facility] 16.1 % 9:34 AM CDT LABORATORIES - [facility] Platelet Count 259 157 - 371 10/09/2018 [facility] x10(9)/L 9:34 AM CDT LABORATORIES - [facility] Leukocytes 5.6 3.4 - 9.6 10/09/2018 [facility] x10(9)/L 9:34 AM CDT LABORATORIES - [facility] Specimen Anatomical Collection Method Collection Time Receive d Time (Source) Location / / Volume Laterality Blood (Blood, 10/09/2018 9:04 AM 10/10/19 19 9:25 Venous) CDT AM CDT Obey Brock M.D. LAB BLOOD ADD-ON Performing Organization Address City/State/ZIP Code Phon e Number [facility] - [address] [place], [place] [address] [facility] (ABNORMAL) BMP (Basic Metabolic Panel) (10/09/2018 9:04 AM CDT) [facility] gist Method Time Signature Potassium, S 4.3 3.6 - 5.2 10/09/2018 [facility] mmol/L 10:06 AM CDT LABORATORIES - [facility] Sodium, S 145 135 - 145 10/09/2018 [facility] mmol/L 10:06 AM CDT LABORATORIES - [facility] Chloride, S 105 98 - 107 10/09/2018 [facility] mmol/L 10:06 AM CDT LABORATORIES - [facility] Bicarbonate, S 26 22 - 29 10/09/2018 [facility] mmol/L 10:06 AM CDT LABORATORIES - [facility] Anion Gap 14 7 - 15 10/09/2018 [facility] 10:06 AM CDT [facility]ATORIES - [facility] BUN (Blood 19 6 - 21 10/09/2018 [facility] Urea mg/dL 10:06 AM CDT LABORATORIES - Nitrogen), S [facility] Creatinine 1.21 (H) 0.59 - 10/09/2018 [facility] 1.04 10:06 AM CDT LABORATORIES - mg/dL [facility] eGFR-Non 47 (L) >=60 10/09/2018 [facility] Black/ mL/min/BS 10:06 AM CDT LABORATORIES - [place] [facility] Comment: ----ADDITIONAL INFORMATION---- Estimated GFR calculated using the 2009 CKD_EPI creatinine equation. eGFR-Black/ 54 (L) >=60 mL/min/BSA 10/09/2018 10:0 6 [facility] [place] CDT LABORATORIES [facility] Comment: ----ADDITIONAL INFORMATION---- Estimated GFR calculated using the 2009 CKD_EPI creatinine equation. Calcium, Total, S 9.7 8.8 - 10.2 mg/dL 10/09/2018 10:0 6 AM [facility] CDT LABORATORIES - [facility] S Glucose, S 75 70 - 140 mg/dL 10/09/2018 10:06 AM [facility] CDT LABORATORIES [facility] S Specimen Anatomical Collection Method Collection Time Receive d Time (Source) Location / / Volume Laterality Blood (Blood, 10/09/2018 9:04 AM 10/10/19 19 9:25 Venous) CDT AM CDT Obey Brock M.D. LAB BLOOD ADD-ON Performing Organization Address City/State/ZIP Code Phon e Number [facility] - [address] [place] [phone] [facility] DX Abdomen Portable Anterior Posterior 1 View (07/07/2018 11:13 AM 3RD MATE) Anatomical Region Laterality Modality Abdomen, Abdominal RST LOS, Abdominal ARZ LOS, N/A Digital Radiography Abdominal FLA LOS Specimen (Source) Anatomical Collection Method Collection Time Re ceived Time Location / / Volume Laterality 07/07/2018 11:19 AM 3RD MATE Impressions 07/07/2018 11:22 AM 3RD MATE IMPRESSION: ??The LOLI drain projects over the right side of the abdomen, with no significant change in position compared to 07/05/2018. Several dilated loops of small bowel measuring up to about 4cm in diameter. Relatively little colon gas identified. Finding is concerning for sm all bowel obstruction. Degenerative change both hips. Narrative 07/07/2018 11:22 AM 3RD MATE EXAM: ??DX ABDOMEN PORTABLE ANTERIOR POSTERIOR 1 VIEW Procedure Note Darius Clay M.D. - 07/07/2018Format ting of this note might be different from the original. EXAM: DX ABDOMEN PORTABLE ANTERIOR POSTE RIOR 1 VIEW IMPRESSION: The LOLI drain projects over t he right side of the abdomen, with no significant change in position compared to 07/05/2018. Several dilated loops of small bowel measuring up to about 4cm in diameter. Relatively little colon gas identified. Finding is concerning for sm all bowel obstruction. Degenerative change both hips. Obey Brock M.D. IMG DIAGNOSTIC IMAGING PROCE VÍCTOR DX Abdomen 1 View (07/05/2018 10:52 AM 3RD MATE) Anatomical Region Laterality Modality Abdomen, Abdominal RST LOS, Abdominal ARZ LOS, N/A Computed Radiography Abdominal FLA LOS Specimen (Source) Anatomical Collection Method Collection Time Re ceived Time Location / / Volume Laterality 07/05/2018 10:54 AM 3RD MATE Impressions 07/05/2018 10:55 AM 3RD MATE IMPRESSION: ??Mild gaseous distention of the colon with relative paucity of small bowel gas. Postoperative changes abdomen pelvis. Narrative 07/05/2018 10:55 AM 3RD MATE EXAM: ??DX ABDOMEN 1 VIEW Procedure Note Marc Harris M.D. - 07/05/2018For matting of this note might be different from the original. EXAM: DX ABDOMEN 1 VIEW IMPRESSION: Mild gaseous distention of t he colon with relative paucity of small bowel gas. Postoperative changes abdomen pelvis. Benjamin Carlos M.D. IMG DIAGNOSTIC IMAGING PROCE VÍCTOR (ABNORMAL) CBC without Differential (07/05/2018 10:18 AM 3RD MATE) [facility] Method Time Signature Hemoglobin 11.8 11.6 - 07/05/2018 [facility] 15.0 g/dL 10:44 AM 3RD MATE LABORATORIES [facility] Hematocrit 36.1 35.5 - 07/05/2018 [facility] 44.9 % 10:44 AM 3RD MATE LABORATORIES [facility] Erythrocytes 4.32 3.92 - 07/05/2018 [facility] 5.13 10:44 AM 3RD MATE LABORATORIES - x10(12)/L [facility] MCV 83.6 78.2 - 07/05/2018 [facility] 97.9 fL 10:[address] [facility] RBC Distrib 14.8 12.2 - 07/05/2018 [facility] Width 16.1 % 10:[address] [facility] Platelet Count 201 157 - 371 07/05/2018 [facility] x10(9)/L 10:44 AM 3RD MATE LABORATORIES [facility] Leukocytes 11.2 (H) 3.4 - 9.6 07/05/2018 [facility] x10(9)/L 10:44 AM 3RD MATE LABORATORIES - [facility] Specimen Anatomical Collection Method Collection Time Receive d Time (Source) Location / / Volume Laterality Blood (Blood, 07/05/2018 10:18 07/05/2018 Venous) AM 3RD MATE 10:32 AM 3RD MATE Benjamin Carlos M.D. LAB BLOOD ADD-ON Performing Organization Address City/State/ZIP Code Phon e Number [facility] - [address] [place], [place] [address] [facility] (ABNORMAL) BMP (Basic Metabolic Panel) (07/05/2018 10:18 AM 3RD MATE) [facility] gist Method Time Signature Potassium, S 3.7 3.6 - 5.2 07/05/2018 [facility] mmol/L 11:11 AM 3RD MATE LABORATORIES - [facility] Sodium, S 139 135 - 145 07/05/2018 [facility] mmol/L 11:11 AM 3RD MATE LABORATORIES - [facility] Chloride, S 100 98 - 107 07/05/2018 [facility] mmol/L 11:11 AM 3RD MATE LAB[facility]ATORIES - [facility] Bicarbonate, S 26 22 - 29 07/05/2018 [facility] mmol/L 11:11 AM 3RD MATE LABORATORIES - [facility] Anion Gap 13 7 - 15 07/05/2018 [facility] 11:11 AM 3RD MATE LABORATORIES - [facility] BUN (Blood 13 6 - 21 07/05/2018 [facility] Urea mg/dL 11:11 AM 3RD MATE LABORATORIES - Nitrogen), S [facility] Creatinine 1.11 (H) 0.59 - 07/05/2018 [facility] 1.04 11:11 AM 3RD MATE LABORATORIES - mg/dL [facility] eGFR-Non 52 (L) >=60 07/05/2018 [facility] Black/ mL/min/BS 11:11 AM 3RD MATE LABORATORIES - [place] [facility] Comment: ----ADDITIONAL INFORMATION---- Estimated GFR calculated using the 2009 CKD_EPI creatinine equation. eGFR-Black/ 60 >=60 mL/min/BSA 07/05/2018 11:1 1 [facility] [place] AM 3RD MATE LABORATORIES - [facility] Comment: ----ADDITIONAL INFORMATION---- Estimated GFR calculated using the 2009 CKD_EPI creatinine equation. Calcium, Total, S 8.7 (L) 8.8 - 10.2 07/05/2018 11:11 AM [facility] mg/dL 3RD MATE LABORATORIES - [facility] S Glucose, S 123 70 - 140 mg/dL 07/05/2018 11:[address] [facility] Specimen Anatomical Collection Method Collection Time Receive d Time (Source) Location / / Volume Laterality Blood (Blood, 07/05/2018 10:18 07/05/2018 Venous) AM 3RD MATE 10:32 AM 3RD MATE Benjamin Carlos M.D. LAB BLOOD ADD-ON Performing Organization Address City/[facility] Code Phon e Number [facility] - [address] [place] [phone] [facility] (ABNORMAL) CBC without Differential (07/03/2018 7:44 AM 3RD MATE) [facility] Method Time Signature Hemoglobin 11.0 (L) 11.6 - 07/03/2018 [facility] 15.0 g/dL 8:10 AM [facility] Hematocrit 33.8 (L) 35.5 - 07/03/2018 [facility] 44.9 % 8:10 AM [facility] Erythrocytes 3.98 3.92 - 07/03/2018 [facility] 5.13 8:10 AM [facility] LABORATORIES - x10(12)/L [facility] MCV 84.9 78.2 - 07/03/2018 [facility] 97.9 fL 8:10 AM [facility] RBC Distrib 14.6 12.2 - 07/03/2018 [facility] Width 16.1 % 8:10 AM [facility] Platelet Count 157 157 - 371 07/03/2018 [facility] x10(9)/L 8:10 AM [facility] Leukocytes 10.3 (H) 3.4 - 9.6 07/03/2018 [facility] x10(9)/L 8:10 AM [facility] Specimen Anatomical Collection Method Collection Time Receive d Time (Source) Location / / Volume Laterality Blood (Blood, 07/03/2018 7:44 AM 07/03/19 19 7:59 Venous) 3RD MATE AM 3RD MATE Benjamin Carlos M.D. LAB BLOOD ADD-ON Performing Organization Address City/[facility] Code Phon e Number [facility] - [address] [place] [phone] [facility] (ABNORMAL) BMP (Basic Metabolic Panel) (07/03/2018 7:44 AM 3RD MATE) [facility] gist Method Time Signature Potassium, S 4.8 3.6 - 5.2 07/03/2018 [facility] mmol/L 8:49 AM 3RD MATE LABORATORIES - [facility] Sodium, S 143 135 - 145 07/03/2018 [facility] mmol/L 8:49 AM 3RD MATE LABORATORIES - [facility] Chloride, S 108 (H) 98 - 107 07/03/2018 [facility] mmol/L 8:49 AM 3RD MATE LABORATORIES - [facility] Bicarbonate, S 22 22 - 29 07/03/2018 [facility] mmol/L 8:49 AM 3RD MATE LABORATORIES - [facility] Anion Gap 13 7 - 15 07/03/2018 [facility] 8:49 AM 3RD MATE LABORATORIES - [facility] BUN (Blood 19 6 - 21 07/03/2018 [facility] Urea mg/dL 8:49 AM 3RD MATE LABORATORIES - Nitrogen), S [facility] Creatinine 1.14 (H) 0.59 - 07/03/2018 [facility] 1.04 8:49 AM 3RD MATE LABORATORIES - mg/dL [facility] eGFR-Non 51 (L) >=60 07/03/2018 [facility] Black/ mL/min/BS 8:49 AM 3RD MATE LABORATORIES - [place] [facility] Comment: ----ADDITIONAL INFORMATION---- Estimated GFR calculated using the 2009 CKD_EPI creatinine equation. eGFR-Black/ 58 (L) >=60 mL/min/BSA 07/03/2018 8:49 [facility] [place] AM 3RD MATE LABORATORIES - [facility] Comment: ----ADDITIONAL INFORMATION---- Estimated GFR calculated using the 2009 CKD_EPI creatinine equation. Calcium, Total, S 8.5 (L) 8.8 - 10.2 07/03/2018 8:49 AM [facility] mg/dL 3RD MATE LAB[facility]ATORIES - [facility] S Glucose, S 154 (H) 70 - 140 mg/dL 07/03/2018 8:49 AM [facility] 3RD MATE LABORATORIES [facility] S Specimen Anatomical Collection Method Collection Time Receive d Time (Source) Location / / Volume Laterality Blood (Blood, 07/03/2018 7:44 AM 07/03/19 7:59 Venous) 3RD MATE AM 3RD MATE Benjamin Carlos M.D. LAB BLOOD ADD-ON Performing Organization Address City/State/ZIP Code Phon e Number [facility] - [address] [place], [place] [address] [facility] DX Abdomen 1 View (07/02/2018 6:59 PM 3RD MATE) Anatomical Region Laterality Modality Abdomen, Abdominal RST LOS, Abdominal ARZ LOS, N/A Digital Radiography Abdominal FLA LOS Specimen (Source) Anatomical Collection Method Collection Time Re ceived Time Location / / Volume Laterality 07/02/2018 7:33 PM 3RD MATE Impressions 07/02/2018 7:43 PM 3RD MATE IMPRESSION: ??Negative for by PO purposes. Surgical clips right lower quadrant. Surgical drain right lower quadrant. Exp ected postoperative retroperitoneal gas. Nonobstructive bowel gas pattern. Narrative 07/02/2018 7:43 PM 3RD MATE EXAM: ??DX ABDOMEN 1 VIEW Procedure Note Zechariah Acevedo M.B.B.S., M.D. - 04/2019 EXAM: DX ABDOMEN 1 VIEW IMPRESSION: Negative for by PO purposes. Surgical clips right lower quadrant. Surgical drain right lower quadrant. Exp ected postoperative retroperitoneal gas. Nonobstructive bowel gas pattern. Edy Silverio M.D. IMG DIAGNOSTIC IMAGING [facility] Surgical Pathology, Frozen Lab (07/02/2018 5:22 PM 3RD MATE) Component Value Ref Test Analysis Performed At [facility] Range Method Time Signature Gross Description A. ??Received fresh labeled right renal mass is a 7.5 x 07/03/2018 [facility] 5.5 x 4.3 cm partial nephrectomy specimen. ??There is a 7. 5 1:34 PM LABORATORIES - x 4.5 x 4.1 cm white-yellow solid mass, located 0.1 cm fro m [facility] the inked resection margin. ??The tumor does not extend into CAMPUS the perirenal fat. ??Dynamite Cartridge Crimper tissue submitted for frozen and permanent sections. ??Non-neoplastic parenchyma is collected for potential future ancillary studies. Grossed by DPL. Participated in Darius Esquivel M.D.-Pathology Resident 07/03/2018 [facility] the Darius Lynn M.D.-Pathology Fellow 1:34 PM LABORATORIES - Interpretation [facility] Report Francis Patel M.D. [phone] [facility] electronically I verify that I have examined all relevant slides/ma terials 1:34 PM LABORATORIES - signed by for the specimen(s) and rendered or confirmed the diagnosi s. [facility] Seen in consultation with: LUZ MARINA Talavera M.D. [phone] 07/03/2018 [facility] 1:34 PM LABORATORIES - [facility] Frozen A. ??Kidney, right renal mass, partial nephrectomy: ??Lizzie l 07/03/2018 [facility] Intraoperative cell carcinoma. ??Margins negative. 1:34 PM LABORATORIES - Report HOLD OVER to classify. [facility] Frozen section histologic interpretation performed by: SARANAC Francis Patel M.D. [phone] Block Summary A Right renal mass 07/03/2018 [place] [facility] A1 Mass to margin 1:34 PM LABORATORIES - A2 Mass to fat [facility] Interpretation FINAL DIAGNOSIS 07/03/2018 [place] [facility] A. 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 5 [facility] x 4.1 cm). ??The surgical margins are negative for tumor. SARANAC See synoptic report. SYNOPTIC REPORT Procedure: Partial nephrectomy. Specimen Laterality: Right. Tumor Site: Not specified. Tumor Size: Greatest dimension: 7.5 cm. Tumor Focality: Unifocal. Histologic Type: Chromophobe renal cell carcinoma. Sarcomatoid Features: Not identified. Rhabdoid Features: Not identified. Histologic Grade (WHO/ISUP Grade): Not applicable. Tumor Necrosis: Not identified. Tumor Extension: Tumor limited to kidney. Margins: Uninvolved by invasive carcinoma. Lymphovascular Invasion: Not identified. Regional Lymph Nodes: No lymph nodes submitted or found. ? Number of Lymph Nodes Involved: Not applicable. ? Number of Lymph Nodes Examined: Not applicable. Pathologic Staging (AJCC, 8th edition): ? TNM Descriptors: Not applicable. ? Primary Tumor: pT2. ? Regional lymph nodes: pNX. ? Distant Metastasis: Not applicable. Pathologic Findings in Nonneoplastic Kidney: Insufficient tissue. The synoptic report incorporates information from all relevant surgical material and includes all required data elements of the current [facility] Cancer Protocol. Specimen (Source) Anatomical Collection Method Collection Time Re ceived Time Location / / Volume Laterality Tissue (Kidney, 07/02/2018 5:22 PM Right) 3RD MATE Narrative This result has an attachment that is no t available. Edy Silverio M.D. LAB SURG PATH ORDERABLES Performing Organization Address City/State/ZIP Code Phon e Number [facility] - [address] [place], [place] [address] [facility] documented in this encounter Visit Diagnoses Diagnosis Mass Kidney - Primary Mass Kidney Mass Kidney documented in this encounter Admitting Diagnoses Diagnosis Mass Kidney documented in this encounter Administered Medications Inactive Administered Medications - up to 3 most recent administrations Medication Order MAR Action Action Date Dose Rate Site acetaminophen injection 1,000 New Bag 07/02/2018 7:25 PM 1,000 mg 400 mL/hr mg (OFIRMEV) 3RD MATE 1,000 mg, intravenous, at 400 mL/hr, Administer over 15 Minutes, Once, On Sun07/02/18 at 1900, For 1 dose, PACU (only), Oral unless RASS less than -1 or nausea/vomiting. Do not use if given in last 6 hours, Restriction Criteria (Pharmacy will review and approve if criteria met): Unable to take or tolerate medications administered via the enteral route or orally (not just NPO), Indications: pain, pain treatment adjunct, postoperative acute pain acetaminophen tablet 1,000 mg (TYLENOL) Given 07/02/2018 1:39 PM 3RD MATE 1,000 mg 1,000 mg, oral, Once, On Sun07/02/18 at 1330, For 1 dose, Pre-Op acetaminophen tablet 1,000 mg (TYLENOL) Given 07/03/2018 9:40 PM 3RD MATE 1,000 mg 1,000 mg, oral, Every 6 hours, First dose on Sun07/03/18 at 0200 Given 07/03/2018 2:26 PM 3RD MATE 1,000 mg Given 07/03/2018 7:54 AM 3RD MATE 1,000 mg acetaminophen tablet 500 mg (TYLENOL) Given 07/04/2018 6:43 PM 3RD MATE 500 mg 500 mg, oral, Every 6 hours PRN, moderate pain or score 4-6 of 10, Starting on Aline 07/04/18 at 1012 Given 07/04/2018 10:58 AM 3RD MATE 500 mg alum-mag hydroxide-simeth 200-200-20 mg/5 mL Given 9 6:43 PM 3RD MATE 30 mL suspension 30 mL (MAALOX) 30 mL, oral, 4 times daily PRN, indigestion, Starting on Sun07/02/18 at 2057 bisacodyl suppository 10 mg (DULCOLAX) 10 mg, rectal, Daily PRN, constipation, Starting on Sun07/05/18 at 1400, Ordered sequence of administration: polyethylene glycol, then bisacodyl until BM achieved. ceFAZolin in dextrose (iso-os) IVPB 2 New Bag 07/03/2018 9:48 AM 3RD MATE 2 g 200 mL/hr g (ANCEF) 2 g, intravenous, at 200 mL/hr, Administer over 30 Minutes, Every 8 hours, First dose on Sun07/03/18 at 0200, For 2 doses, Start within 8 hours of last IV dose. premix, Drug Monitoring Program: Pharmacist to adjust medication dosing based on indication and drug clearance factors., Indications: Prophylaxis, surgical New Bag 07/03/2018 1:03 AM 3RD MATE 2 g 200 mL/hr ciprofloxacin tablet 500 mg (CIPRO) 500 mg, oral, 2 times daily before break fast and dinner, First dose on Sun07/07/18 at 1600, Take 2 hours before or 6 hours after antacids containing magnesium or aluminum, sucralfate, didanosine, polymeric phosphate binders, or products containing calcium, iron, or zinc., Drug Monitoring Program: Pharmacist to adjust medication dosing based on indication and drug clearan ce factors., Indications: Prophylaxis, surgical droperidol injection 0.625 mg (INAPSINE) Given 07/03/2018 6:36 AM 3RD MATE 0.625 mg 0.625 mg, intravenous, Every 6 hours PRN, nausea, vomiting, Starting on Sun07/02/18 at 2057, For 48 hours, Total of 3 doses in 24 hour period. RASS must be -2 or higher to administer. Reassess for nausea or vomiting after at least 10 minutes. If nausea or vomiting persists administer next ordered antiemetic medications (order for antiemetic medication administration ondansetron then droperidol then promethazine)., Indications: nausea and vomiting famotidine tablet 20 mg (PEPCID) Given 07/07/2018 10:27 AM 3RD MATE 20 mg 20 mg, oral, 2 times daily, First dose on Sun07/02/18 at 2100, famotidine 20 mg oral twice daily was interchanged for cimetidine 300 mg oral 4 times daily, Drug Monitoring Program: Pharmacist to adjust medication dosing based on indication and drug clearance factors. Given 07/06/2018 8:58 PM 3RD MATE 20 mg Given 07/06/2018 8:52 AM 3RD MATE 20 mg fentaNYL injection 25 mcg (SUBLIMAZE) Given 07/02/2018 7:35 PM 3RD MATE 25 mcg 25 mcg, intravenous, Every 2 min PRN, moderate pain or score 4-6 of 10, severe pain or score 7-10 of 10, Starting on Sun07/02/18 at 1853, PACU (only), Up to maximum total dose of 100 mcg furosemide injection 10 mg (LASIX) Given 07/04/2018 8:56 AM 3RD MATE 10 mg 10 mg, intravenous, Once, On Aline 07/04/18 at 0800, For 1 dose, Adults: Doses less than 120 mg: IV push over 20 mg/minute. Doses 120 mg or greater: IVPB at 4 mg/minute. Peds/Neonates: Doses less than 120 mg over 0.5 mg/kg/minute. Doses 120 mg or greater: IVPB at 4 mg/minute. furosemide injection 10 mg (LASIX) Given 07/05/2018 7:43 AM 3RD MATE 10 mg 10 mg, intravenous, Once, On Sun07/05/18 at 0715, For 1 dose, Adults: Doses less than 120 mg: IV push over 20 mg/minute. Doses 120 mg or greater: IVPB at 4 mg/minute. Peds/Neonates: Doses less than 120 mg over 0.5 mg/kg/minute. Doses 120 mg or greater: IVPB at 4 mg/minute. heparin (porcine) Given 07/07/2018 4:49 AM 3RD MATE 5,000 Units Right Upper Arm injection 5,000 Units (Back) 5,000 Units, subcutaneous, Every 8 hours scheduled, First dose on Sun07/03/18 at 0400 Given 07/06/2018 9:00 PM 3RD MATE 5,000 Units Left Upper Arm (Back) Given 07/06/2018 2:56 PM 3RD MATE 5,000 Units Right Upper Arm (Back) lactated Ringer's bolus 500 mL New Bag 07/05/2018 3:26 PM 3RD MATE 500 mL 250 mL/hr 500 mL, intravenous, at 250 mL/hr, Administer over 2 Hours, Once, On Sun07/05/18 at 1445, For 1 dose lactated ringers Restarted 07/02/2018 8:49 PM 3RD MATE 50 mL/hr 50 mL/hr 50 mL/hr, intravenous, Continuous, Starting on Sun07/02/18 at 1915, PACU & Post-Op Continued from OR 07/02/2018 7:00 PM 3RD MATE 50 mL/hr 50 mL/hr lisinopril tablet 5 mg (PRINIVIL,ZESTRIL ) Given 07/07/2018 10:27 AM 3RD MATE 5 mg 5 mg, oral, Every morning, First dose on Sun07/05/18 at 0900 Given 07/06/2018 8:52 AM 3RD MATE 5 mg lisinopril tablet 5 mg (PRINIVIL,ZESTRIL ) Given 07/05/2018 6:49 AM 3RD MATE 5 mg 5 mg, oral, Once, On Sun07/05/18 at 0700, For 1 dose NaCl 0.9 % bolus 500 mL New Bag 07/03/2018 6:11 AM 3RD MATE 500 mL 500 mL/hr 500 mL, intravenous, at 500 mL/hr, Administer over 1 Hours, As needed, Urinary output less than 30 mL/hour x 2 consecutive hours, Starting on Sun07/02/18 at 2058, May repeat x 1 within 48 hours. NaCl 0.9% infusion Rate/Dose Verify 07/03/2018 10:20 AM 100 mL/hr 100 mL/hr 100 mL/hr, intravenous, 3RD MATE Continuous, Starting on Sun07/02/18 at 2100, Continue IV fluids from operating room at 100 ml/hour until bag finished, then begin as ordered. Discontinue once PO intake >600 ml in 24 hours New Bag 07/02/2018 11:09 PM 3RD MATE 100 mL/hr 100 mL/hr ondansetron (PF) injection 4 mg (ZOFRAN) Given 07/04/2018 6:43 PM 3RD MATE 4 mg 4 mg, intravenous, Every 6 hours PRN, nausea, vomiting, Starting on Sun07/02/18 at 2058, For 48 hours, Reassess for nausea or vomiting after at least 10 minutes. If nausea or vomiting persists administer next ordered antiemetic medications (order for antiemetic medication administration ondansetron then droperidol then promethazine). Given 07/03/2018 3:22 AM 3RD MATE 4 mg ondansetron (PF) injection 4 mg (ZOFRAN) 4 mg, intravenous, Every 6 hours PRN, na usea, vomiting, Starting on Sun07/05/18 at 0713 oxyCODONE IR tablet 2.5 mg (ROXICODONE) 2.5 mg, oral, Every 4 hours PRN, mild pa in or score 1-3 of 10, pain can take oral meds and other analgesics are ineffective, Starting on Sun07/04/18 at 0751 oxyCODONE IR tablet 5 mg (ROXICODONE) 5 mg, oral, Every 4 hours PRN, moderate pain or score 4-6 of 10, severe pain or score 7-10 of 10, pain can take oral meds and other an algesics are ineffective, Starting on Sun07/04/18 at 0751 scopolamine base 1 mg over 3 days 1 patc h (TRANSDERM SCOP) 1 patch, transdermal, Administer over 72 Hours, Every 72 hours PRN, nausea, Starting on Sun07/03/18 at 0805, For 2 doses sennosides-docusate sodium 8.6-50 mg per Given 07/06/2018 8:52 A M 3RD MATE 1 tablet tablet 1 tablet (SENOKOT-S) 1 tablet, oral, 2 times daily, First dose on Sun07/02/18 at 2100, Do not give if patient has diarrhea. Given 07/05/2018 8:45 PM 3RD MATE 1 tablet Given 07/05/2018 8:09 AM 3RD MATE 1 tablet sodium chloride 5 % ophthalmic solution 1 drop (SHY 128) 1 drop, both eyes, 4 times daily PRN, ir ritation, Starting on Sun07/02/18 at 2104 documented in this encounter Active and Recently Administered Medications Times are shown in 3RD MATE. Scheduled Medication Order 07/05/2018 07/06/2018 07/07/2018 ciprofloxacin tablet 500 mg (CIPRO) 500 mg, oral, 2 times daily before break fast and dinner, First dose on Sun07/07/18 at 1600, Take 2 hours before or 6 hours after antacids containing magnesium or aluminum, sucralfate, didanosine, polyme aslhey phosphate binders, or products conta ining calcium, iron, or zinc., Drug Monitoring Program: Pharmacist to adjust medication dosing based on indication and drug clearance factors., Indications: Prophylaxis, surgical famotidine tablet 20 mg (PEPCID) 0809 (Given - Provide r: arpan Troypal)2044 (Given - Provider: Ciara Willard RJenniferNJennifer) 0852 (Given - Provider: Deidra Talavera R.N.)205 (Given - Provider: Sunitha Heard RJenniferN.) 1027 (Given - Provider: Patrick Ortiz RJenniferN.) 20 mg, oral, 2 times daily, First dose o n Sun07/02/18 at 2100, famotidine 20 mg oral twice daily was interchanged for cimetidine 300 mg oral 4 times daily, Drug Monitoring Program: Pharmacist to adjust medication dosing based on indication and drug clearance factors . furosemide injection 10 mg (LASIX) (COMPLETED) 0743 (G iven - Provider: Deidra Talavera R.N.) 10 mg, intravenous, Once, On Sun07/05/18 at 0715, For 1 dose, Adults: Doses less than 120 mg: IV push over 20 mg/minute. Doses 120 mg or greater: IVPB at 4 mg/minute. Peds/Neonates: Doses less than 120 mg over 0.5 mg/kg/minute. Doses 120 mg or greater: IVPB at 4 mg/ minute. heparin (porcine) injection 5,000 Units 0530 (Given - Provider: Lianna Lambert R.N.)1458 (Given - Provider: Deidra Talavera R.N.)204 (Given - Provider: Ciara Willard RJenniferN.) 0613 (Given - Provider: Ciara lainez, R.N.)1456 (Given - Provider: Deidra Talavera R.N.)2100 (Given - Provider: Sunitha Heard RJenniferNJennifer) 0449 (Given - Provider: Sunitha staton RJenniferNJennifer - Comment: pt requested)0600 (Canceled Entry - Provider: Sunitha Heard RJenniferNJennifer - Comment: given early d/t pt request)1400 (Due) 5,000 Units, subcutaneous, Every 8 hours scheduled, First dose on Sun07/03/18 at 0400 lactated Ringer's bolus 500 mL (COMPLETED) 1526 (New B ag - Provider: Deidra Talavera R.N.) 500 mL, intravenous, at 250 mL/hr, Admin ister over 2 Hours, Once, On Sun07/05/18 at 1445, For 1 dose lidocaine (PF) 10 mg/mL (1 %) injection 30 mL (XYLOCAINE) 1130 (Due) 30 mL, infiltration, Once, 07/07/18 at 1130, For 1 dose lisinopril tablet 5 mg (PRINIVIL,ZESTRIL) 0900 (Cancel ed Entry - Provider: Lianna Lambert R.N. - Comment: Uro oncall ok'd early lisinopril because of high SBP. Needs one time dose because order doesnt start until 0900 today.) 0852 (Given - Provider: Deidra Talavera R.N.) 1027 (Given - Provider: Patrick Ortiz RJenniferNJennifer) 5 mg, oral, Every morning, First dose on Sun07/05/18 at 0900 lisinopril tablet 5 mg (PRINIVIL,ZESTRIL) (COMPLETED) 0649 (Given - Provider: Lianna Lambert RJuliann) 5 mg, oral, Once, On Sun07/05/18 at 0700, For 1 dose sennosides-docusate sodium 8.6-50 mg per tablet 1 tabl et (SENOKOT-S) 0809 (Given - Provider: Bonifacio Vargas)2044 (Given - Provider: Ciara Willard R.N.) 0852 (Given - Provider: Deidra Talavera R.N.)2057 (Not Given - Provider: Sunitha Heard RJenniferNJennifer - Reason: Patient/family refused) 1029 (Not Given - Provider: Patrick Ortiz RJuliann - Reason: Patient/family refused - Comment: Loose stools per patient.) 1 tablet, oral, 2 times daily, First dos e on Sun07/02/18 at 2100, Do not give if patient has diarrhea. Continuous Medication Order 07/05/2018 07/06/2018 07/07/2018 NaCl 0.9% infusion 1030 (Stopped - Provider: Patrick Ortiz RJenniferNJennifer) 100 mL/hr, intravenous, Continuous, Star ting on Sun07/02/18 at 2100, Continue IV fluids from operating room at 100 ml/hour until bag finished, then begin as ordered. Discontinue once PO intake >600 ml in 24 hours PRN Medication Order 07/05/2018 07/06/2018 07/07/2018 acetaminophen tablet 500 mg (TYLENOL) 1028 (Not Given - Provider: Patrick Ortiz RJuliann - Reason: Patient/family refused) 500 mg, oral, Every 6 hours PRN, moderat e pain or score 4-6 of 10, Starting on Sun07/04/18 at 1012 alum-mag hydroxide-simeth 200-200-20 mg/5 mL suspension 30 mL (M AALOX) 30 mL, oral, 4 times daily PRN, indigestion, Starting on 06/21 at 2057 benzocaine-menthol 15-3.6 mg per lozenge 1 lozenge (CEPACOL) 1 lozenge, oral, As needed, sore throat, Starting Sun07/02/18 at 2057 bisacodyl suppository 10 mg (DULCOLAX) 10 mg, rectal, Daily PRN, constipation, Starting on Sun07/05/18 at 1400, Ordered sequence of administration: polyethylene glycol, then bisacodyl until BM achieved. NaCl 0.9 % bolus 500 mL 500 mL, intravenous, at 500 mL/hr, Admin ister over 1 Hours, As needed, Urinary output less than 30 mL/hour x 2 consecutive hours, Starting on Sun07/02/18 at 2057, May repeat x 1 within 48 hours. naloxone injection 0.2 mg (NARCAN) 0.2 mg, intravenous, As needed, respirat ory depression, Starting Sun07/02/18 at 2057, For respiratory rate less than 8 breaths per minute or RASS score of -3, - 4, -5. Apply oxygen to keep oxygen saturations greater than 90% and notify service. ondansetron (PF) injection 4 mg (ZOFRAN) 4 mg, intravenous, Every 6 hours PRN, na usea, vomiting, Starting on Sun07/05/18 at 0713 oxybutynin tablet 5 mg (DITROPAN) 5 mg, oral, 3 times daily PRN, bladder spasms, Starting 07/02 at 2058 oxyCODONE IR tablet 2.5 mg (ROXICODONE) 2.5 mg, oral, Every 4 hours PRN, mild pa in or score 1-3 of 10, pain can take oral meds and other analgesics are ineffective, Starting on Sun07/04/18 at 0751 oxyCODONE IR tablet 5 mg (ROXICODONE) 5 mg, oral, Every 4 hours PRN, moderate pain or score 4-6 of 10, severe pain or score 7-10 of 10, pain can take oral meds and other analgesics are ineffective, Starting on Sun07/04/18 at 0751 scopolamine base 1 mg over 3 days 1 patch (TRANSDERM SCOP) 1 patch, transdermal, Administer over 72 Hours, Every 72 hours PRN, nausea, Starting on Sun07/03/18 at 0805, For 2 doses sodium chloride 5 % ophthalmic solution 1 drop (SHY 128) 1 drop, both eyes, 4 times daily PRN, ir ritation, Starting on Sun07/02/18 at 2104 documented in this encounter
--- OUTSIDE RECORDS SUMMARY | 2022-02-09 08:08 | XMS_ITS | Encounter Summary ---
:1955 Author Organization [facility] Address [address] [place] [address] Care Team Providers Name Role Phone Unavailable Primary Care Provider Unavailable Reason for Visit Reason Onset Date Comments Patient called 09/23/2018 Encounter Details Date Type Department Care Team Description 09/23/2018 Clinical Communication Department of Natalya Silverio called Urology in Edy Wagoner M.D. [place], [place] [address] [facility] [address] [place] [id number] [phone] Social History Tobacco Use Types Packs/Day Years [...] or relatives? How often do you attend pentecostal or More than 4 times per year 08/15/2021 buddhist services? 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 - 09/24/2018 10:08 AM CDT SUBJECTIVE CHIEF COMPLAINT / REASON FOR CALL Bowel preparation issues HISTORY OF PRESENT ILLNESS Mrs. Willis called stating she has been taking a bowel preparation for a colonoscopy which is to be performed in [place]. She feels achy all over and wonders if it related to her urological surgery and medications. ASSESSMENT / PLAN Mrs. Willis had a right partial nephrectomy on 07/02/[address] Silverio. She denies having any symptoms prior to her colon preparation and was told it was not related to her surgery. She was not started on any new medication by Urology as well. Mrs. Willis was asked to contact her local provider who requested her bowel preparation to obtain recommendations. Disposition/Recommendation: as above. Education: patient/caller able to teach back Caller agreeable to plan of care: yes The following references were used: nursing clinical judgement Telephone Encounter - EsquivelBrianda - 09/24/2018 9:11 AM CDT Patient of Dr. Silverio called today stating that she is having a colonoscopy today at 3 pm today in [place] and has started the prep of polyethylene glycol, MiraLAX, and Gatorade. She is still supposed to take magnesium citrate. She is now feeling like she has fibromyalgia (aching joints and muscles). She states she can barely move. Wondering if this might have something to do with the drugs shewas given during surgery on 07/[address] Silverio or the prep for the colonoscopy in conjunction with that. She would appreciate a call at [phone]. Telephone Encounter - Kerry iLao - 09/23/2018 4:33 PM CDT Mrs. Willis called. She wanted me to pass along to Dr. Silverio's team that she had a derm appointment today and Lentingo Maligna was found. She is scheduled to see Urology on 10/09/18 documented in this encounter Plan of Treatment Not on filedocumented as of this encounter Visit Diagnoses Not on filedocumented in this encounter
--- OUTSIDE RECORDS SUMMARY | 2022-02-09 08:08 | XMS_ITS | Encounter Summary ---
:1955 Author Organization [facility] Address [address] [place] [address] Care Team Providers Name Role Phone Unavailable Primary Care Provider Unavailable Encounter Details Date Type Department Care Team Description 07/08/2018 Clinical Communication Department of Urology Ena Morales, in [facility] [place] [address] [place] [address] Social History Tobacco Use Types Packs/Day Years [...] 08/15/2021 organizations such as islam groups, unions, fraternal or athletic groups, or [...] or slept in a chcf (including now)? 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 - 07/08/2018 6:46 PM CST Patient is s/p partial right nephrectomy on 07/02. She calls to report new onset dysuria and pain when her bladder is too full. She took her temp and it was 100. She denies nausea, vomiting, flank or abdominal pain, lethargy. In fact she states she has good appetite. Her midline incision and LOLI site are non erythematous, not draining or swollen and appear to be healing well. Her LOLI site does feel somewhat tender since it was removed however. Discussed that she should push fluids and void every 2-3 hours in the daytime for 24-48 hours. If symptoms persist or worsen, or if she develops fever/flank pain then she should let us know and urinalysis with culture can be obtained to determine whether she has a UTI. Patient comfortable with plan and expresses understanding. 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
--- OUTSIDE RECORDS SUMMARY | 2022-02-09 08:08 | XMS_ITS | Encounter Summary ---
:1955 Author Organization [facility] Address [address] [place] [address] Care Team Providers Name Role Phone Unavailable Primary Care Provider Unavailable Encounter Details Date Type Department Care Team Description 08/05/2018 Clinical Communication Department of Urology Edy Silverio in Rizwana López M.D. 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 - 08/05/2018 9:07 AM CDT HISTORY OF PRESENT ILLNESS Mrs. Willis is status post right partial nephrectomy on 07/02/[address] Silverio. She was dismissedon 07/07/2018. She was seen in her local ED on 07/18/2018 for feeling of her left lung not completely inflating. They did not find a cause and all testing was normal per her report. She does report a hemo globin of 11.8 leaving the hospital. She states 08/01/2018 she developed mid back sensitivity, not pain. She has not taken any medication or trialed heat or cold. She also awoke with swollen hands twomornings. She drank 64 ounces of cranberry juice on 08/03/2018 and 08/04/2018 ans states the sensitivity improved. She denies fever, odorous urine, cloudy urine and states the color is pale green/yellow.She is only taking lisinopril, MVT, colace, and senna. She questions a low Ferritin as she has been rock bottom in the past previously taking iron supplements. She is also 10 days post dental cleansing. The following portions of the patient's history were reviewed and updated as appropriate: allergies,current medications, medical history, surgical history and problem list. ASSESSMENT / PLAN Mrs. Willis was asked to contact her local PA who would be able to provide a better assessment of hersymptoms. Disposition/Recommendation: self-care appropriate at this time as above Education: patient/caller able to teach back Caller agreeable to plan of care: yes The following references were used: nursing clinical judgement Telephone Encounter - Apple Hernandez - 08/05/2018 8:19 AM CDT Mrs. Willis calls this morning. She said that over the past couple of days she has been profoundly tired. She does not have a specific back ache but a general back ache. She did say she felt really cold and her temperature was 97.6. She is wondering if she should be seen here or by her local provider. documented in this encounter Plan of Treatment Not on filedocumented as of this encounter Visit Diagnoses Not on filedocumented in this encounter
--- OUTSIDE RECORDS SUMMARY | 2022-02-09 08:08 | XMS_ITS | Encounter Summary ---
:1955 Author Organization [facility] Address [address] [place] [address] Care Team Providers Name Role Phone Unavailable Primary Care Provider Unavailable Encounter Details Date Type Department Care Team Description 09/11/2018 Lab RST RO Jovani Tinsley, Lentigo Maligna Face [address] [facility] De, M.S. 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 documented in this encounter Results Pathology Review of Outside Material (09/16/2018 2:25 PM CDT) Component Value Ref Test Analysis Performed At [facility] gist Range Method Time Signature 09/19/2018 [facility] 11:51 AM LABORATORIES - [facility] Participated in Leigh Ortiz, 09/19/2018 [place] Rizwana Mora-Pathology 11:51 AM LABORATORIES - Interpretation Fellow [facility] Report Devon Esquivel M.D. 09/19/2018 [facility] electronically I verify that I have examined all relevant slides/ma terials 11:51 AM LABORATORIES - signed by for the specimen(s) and rendered or confirmed the diagnosi s. [facility] Material A. [id number]: Skin, mandible, left 0 09/19/2018 [facility] Received ? 1 stained slide, 5 unstained slides 11:51 AM LABORATORIES - [facility] Disclaimer This test was developed and its performance characteri stics 09/19/2018 [facility] determined by [facility] in a manner consistent with CLIA 11:51 AM LABORATORIES - requirements. This test has not been cleared or approved b y [facility] the U.S. Food and Drug Administration. CAMPUS Addendum Melan A stain highlights the atypical melanocytic 10/07/2018 [facility] proliferation. 1:34 PM LABORATORIES - ANCILLARY STUDIES [facility] [place] Melan A stain was performed at [facility] on unstained CAMPUS slide(s) provided by the referring institution. Signed by Devon Esquivel M.D. 10/07/2018 1:34 PM This test was developed and its performance characteristics determined by [facility] in a manner consistent with CLIA requirements. This test has not been cleared or approved by the U.S. Food and Drug Administration. Comment: REVISED RESULTS Interpretation FINAL DIAGNOSIS 10/07/2018 1:34 PM [facility] A. ??Skin, mandible, left, [id number], 09/05/2018: CDT LABORATORIES - Malignant melanoma in situ, lentigo maligna type, [facility] level I (T-classification: ??Tis) GARNETT COMMENT Tumor involves the peripheral margin. Complete surgical excision with appropriate margins is recommended. Focal invasion of the dermis cannot be completely excluded. Specimen Anatomical Collection Method Collection Time Receive d Time (Source) Location / / Volume Laterality Varies 09/16/2018 2:25 PM 9 2:25 CDT PM CDT Narrative This result has an attachment that is no t available. Jovani Canales M.D., M.S. LAB SURG PATH ORDERABLES Performing Organization Address City/State/ZIP Code Phon e Number [facility]ORATORIES - [address] [place] [address] [facility] documented in this encounter Visit Diagnoses Diagnosis Lentigo Maligna Face (HCC) documented in this encounter
--- OUTSIDE RECORDS SUMMARY | 2022-02-09 08:08 | XMS_ITS | Encounter Summary ---
:1955 Author Organization [facility] Address [address] [place] [address] Care Team Providers Name Role Phone Unavailable Primary Care Provider Unavailable Reason for Referral MRI/CAT/PET Scan (Routine) - Modified Order Specialty Diagnoses / Procedures Referred By Contact Refer red To Contact Radiology Diagnoses Carcinoma Renal Cell Right (HCC) [facility] CT Chest with IV Contrast CT Chest without IV Contrast UT CT THORAX WO CNTRST HC CT THORAX WO CNTRST UT CT THORAX WO CNTRST C.N.P. [address] [place] [address] Referral ID Status Reason Start Date Expiration Date Visits V isits Requested Authorized [id number] Modified 10/11/2018 10/11/2019 1 1 Order RI/CAT/PET Scan (Routine) - Closed Specialty Diagnoses / Procedures Referred By Contact Refer red To Contact Radiology Diagnoses Carcinoma Renal Cell Right (HCC) [facility] CT Abdomen Pelvis with IV Contrast CT Abdomen Pelvis without and with IV Contrast UT CT ABD&PELVIS WO/W CNTRST HC CT ABD&PELVIS WO/W CNTRST UT CT ABD&PELVIS WO/W CNTRST C.N.P. [address] [place] [phone] Referral ID Status Reason Start Date Expiration Date Visits Requ ested Visits Authorized [id number] Closed 10/11/2018 10/11/2019 1 1 utpatient (Routine) - Closed Specialty Diagnoses / Procedures Referred By Contact Refer red To Contact Urology Hermelindo Estrada APRN, C.N.P. [address] [phone] Referral ID Status Reason Start Date Expiration Date Visits Requ ested Visits Authorized [id number] Closed 10/11/2018 10/11/2019 1 1 RI/CAT/PET Scan (Routine) - Closed Specialty Diagnoses / Procedures Referred By Contact Refer red To Contact Radiology Diagnoses Carcinoma Renal Cell Right (HCC) Nodule Pulmonary Edy Silverio M.D. [facility] Procedures CT Chest without IV Contrast UT CT THORAX WO CNTRST HC CT THORAX WO CNTRST UT CT THORAX WO CNTRST [address] [place] [phone] Referral ID Status Reason Start Date Expiration Date Visits Requ ested Visits Authorized [id number] Closed 10/09/2018 10/09/2019 1 1 Reason for Visit Outpatient (Routine) - Closed Specialty Diagnoses / Procedures Referred By Contact Refer red To Contact Urology Obey Brock M.D. [address] [phone] Referral ID Status Reason Start Date Expiration Date Visits Requ ested Visits Authorized [id number] Closed 07/06/2018 07/06/2019 1 1 Encounter Details Date Type Department Care Team Description 10/09/2018 Office Visit Department of Urology Edy Silverio Carcinoma Renal Cell Right (HCC) (Primary Dx); in Rizwana López M.D. Nodule Pulmonary [address] [place] [phone] Social History Tobacco Use Types Packs/Day Years [...] More than 4 times per year 08/15/2021 scientology services? 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 - 10/09/2018 3:00 PM CDT REASON FOR VISIT Renal cell carcinoma recheck. First post-operative visit. HISTORY OF PRESENT ILLNESS Mrs. Willis is a pleasant 63 y.o. 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 She presents today for her 1st postoperative recheck. Mrs. 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 The patient states she is doing well after partial nephrectomy. Her energy levels are approaching baseline. She denies any dysuria or gross hematuria. PAST MEDICAL/SURGICAL HISTORY MEDICAL Past Medical History: Diagnosis Date ??? Anemia 2016 Not a current issue, did take iron PO for 1 year. ??? Carcinoma Renal Cell Right (HCC) 07/02/2018 Chromophobe renal cell forming 7.5 cm mass in the right kidney ??? Deficiency Vitamin D ??? Gastroesophageal Reflux Disease ??? Hernia Umbilical ??? Hypertension NOS ??? Lesion Liver 04/2018 Multiple indeterminate lesions ??? Mass Kidney 04/2018 Right kidney ??? Melanoma Face (HCC) ??? Polyp Colon 2013 ??? Post Operative Nausea/Vomiting ??? Pulmonary Nodule Computed Tomography Indeterminate 04/2018 SURGICAL Past Surgical History: Procedure Laterality Date ??? HYSTERECTOMY 2005 spinal, some awarness during procedure ??? INGUINAL HERNIA REPAIR Left as an infant. ??? NEPHRECTOMY - PARTIAL Right 07/02/2018 Procedure: Nephrectomy, Partial.; Surgeon: Edy Silverio M.D.; Location: [facility] OR PHYSICAL EXAM Abdomen: Midline incision healing well following partial nephrectomy without evidence of herniation. IMPRESSION/REPORT/PLAN #1 Chromophobe renal cell carcinoma status post right partial nephrectomy July 02, 2018 for pT2aNX MX R0 disease #2 Irregularity on chest x-ray Plan I discussed with the patient her that her imaging studies appear negative for residual recurrent renal cell carcinoma at this time. There is a small abnormality on her chest x-ray and we will follow up with a CT to confirm if this is anything of concern. I suspect this will not be anything that would change our course moving forward. Would anticipate return check every 6 months for the next 3years. We will coordinate a return visit around March of 2019. Recommendations 1. CT chest shows stable small bilateral pulmonary nodules. Will follow up with imaging this fall. 2. Return to clinic 6 months for renal cell cancer recheck 22 minutes with the patient, 17 in direct counseling Alicia Ross, R.N. - 10/09/2018 3:00 PM CDT Karyna Willis was provided two copies of her Renal Survivorship Care Plan with instruction. She isto keep one copy and provide the other copy to the local provider. She will be followed at [facility]. documented in this encounter Plan of Treatment Scheduled Referrals Name Type Priority Associated Diagnoses Order S christopher Urology office Outpatient Referral Routine Expect ed: visit (clinic) 04/13/2019 (Approximate), Expires: 10/11/2021 documented as of this encounter Results CT [...] IV CONTRAST No 3D post-processing performed. COMPARISON: [facility] CT chest 019. FINDINGS: A 3 [...] IV CONTRAST No 3D post-processing performed. COMPARISON: [facility] CT chest 019. FINDINGS: A 3 [...] Hermelindo Estrada APRN, C.N.P. IMG CT PROCEDURES Urinalysis with Microscopic: Urine, Voided (03/19/2019 9:09 [...] performa nce characteristics determined by [facility] in a manner co nsistent with [...] Laterality Urine (Urine, 03/19/2019 9:09 AM 03/19/20 19 9:09 Voided) CDT AM CDT Hermelindo Estrada APRN, C.N.P. LAB URINE ORDERABLES Performing Organization Address City/State/ZIP Code Phon e Number [facility] - 200 [place], [place] [address] [place] [address] Laboratories-[facility] 200 [facility] CBC without Differential (03/19/2019 8:49 AM CDT) [...] 03/19/20 19 9:08 Venous) CDT AM CDT Paulie Diaz APRNNJenniferPJennifer LAB BLOOD ADD-ON Performing Organization Address City/State/ZIP Code Phon e Number [facility] - 200 [place], [place] [address] [facility] [place] [address] Laboratories-[facility] 200 [facility] (ABNORMAL) Basic Metabolic Panel (03/19/2019 8:49 AM [...] 03/19/2019 DTL Black/ mL/min/BSA 10:38 AM CDT Faroese Comment: ----ADDITIONAL INFORMATION---- Estimated GFR calculated using [...] 03/19/20 19 9:08 Venous) CDT AM CDT Paulie Diaz APRNNJenniferPJennifer LAB BLOOD ADD-ON Performing Organization Address City/State/ZIP Code Phon e Number [facility] - [address] [place], [place] [address] [facility] [place] [address] Laboratories-[facility] [address] Chest without IV Contrast (10/10/2018 1:46 [...] correlation with physical examination is recommended. Edy Silverio M.D. IMG CT PROCEDURES documented in this encounter Visit Diagnoses Diagnosis Carcinoma Renal Cell Right (HCC) - Prima ry Nodule Pulmonary Carcinoma Renal Cell Right (HCC) Nodule Pulmonary Carcinoma Renal Cell Right (HCC) documented in this encounter
--- OUTSIDE RECORDS SUMMARY | 2022-02-09 08:08 | XMS_ITS | Encounter Summary ---
:1955 Author Organization [facility] Address [address] [place] [address] Care Team Providers Name Role Phone Unavailable Primary Care Provider Unavailable Encounter Details Date Type Department Care Team Description 09/24/2018 Clinical Communication Department of Shavon Rick Dermatology in , R.N. [place], [place] [address] [facility] [address] [place] [phone] Social History Tobacco Use Types Packs/Day Years [...] More than 4 times per year 08/15/2021 religion services? Do you belong to any clubs [...] or slept in a prison (including now)? 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 sent at 09/24/2018 1:33 PM CDT ----- Reschedule to October 10 with Sly as we talked about on the phone. :) Thank you, Shavon ----- Message ----- From: Rocío Borja Sent: 09/24/2018 1:25 PM To: Rst [facility] Surg Charge, # Good Afternoon, Mrs. Willis had to cancel her LM appointment for tomorrow with Dr. Malone due to running a fever. Our first available LM is going out to 11/14/2018. May I please have you advise if we are able to get themmoved to a sooner date. Thank you, Rocío documented in this encounter Plan of Treatment Not on filedocumented as of this encounter Visit Diagnoses Not on filedocumented in this encounter
--- OUTSIDE RECORDS SUMMARY | 2022-02-09 08:08 | XMS_ITS | Encounter Summary ---
:1955 Author Organization [facility] Address [address] [place] [address] Care Team Providers Name Role Phone Unavailable Primary Care Provider Unavailable Reason for Referral MRI/CAT/PET Scan (Routine) - Closed Specialty Diagnoses / Procedures Referred By Contact Refer red To Contact Radiology Diagnoses Mass Kidney Obey Brock M.D. [facility] Procedures CT Abdomen without and with IV Contrast and Pelvis with IV Con CT Abdomen Pelvis with IV Contrast AK CT ABD&PELVIS W CNTRST HC CT ABD&PELVIS W CNTRST AK CT ABD&PELVIS W CNTRST AK CT ABD&PELVIS WO/W CNTRST [address] ABD&PELVIS WO/W CNTRST AK CT ABD&PELVIS WO/[place] [address] Referral ID Status Reason Start Date Expiration Date Visits Requ ested Visits Authorized [id number] Closed 07/06/2018 07/06/2019 1 1 Reason for Visit MRI/CAT/PET Scan (Routine) - Closed Specialty Diagnoses / Procedures Referred By Contact Refer red To Contact Radiology Diagnoses Mass Kidney Obey Brock M.D. [place] Procedures CT Abdomen without and with IV Contrast and Pelvis with IV Con CT Abdomen Pelvis with IV Contrast AK CT ABD&PELVIS W CNTRST HC CT ABD&PELVIS W CNTRST AK CT ABD&PELVIS W CNTRST AK CT ABD&PELVIS WO/W CNTRST [address] ABD&PELVIS WO/W CNTRST AK CT ABD&PELVIS WO/[place] [address] Referral ID Status Reason Start Date Expiration Date Visits Requ ested Visits Authorized [id number] Closed 07/06/2018 07/06/2019 1 1 Encounter Details Date Type Department Care Team Description 10/09/2018 Hospital Encounter Department of Radiology, Betty Brock, Mass Kidney [facility], in M.D. 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 - 10/09/2018 11:29 AM CDT Patient has slightly pink cheeks at baseline, prior to CT IV contrst dye injection. She stated that her has it too--she thinks it is environmental. documented in this encounter Plan of Treatment Not on filedocumented as of this encounter Procedures Procedure Name Priority Date/Time Associated Comments Diagnosis CT ABDOMEN RAD - Routine 10/09/2018 12:00 Mass Kidney Results fo r this WITHOUT AND WITH (most inpatients PM CDT procedu re are in IV CONTRAST AND and all the results PELVIS WITH IV outpatients) section. CON documented in this encounter Results CT Abdomen [...] aspect of the righ t lower pole (/,/). No abdominal/pelvic adenopathy. Simple righ t renal [...] lateral aspect of the right lower pole (/,/). No abdominal/pelvic adenopathy. Simple righ t renal cyst. Kidneys otherwise negative. No urinary calculi. Hysterecto my. 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 Splenule. Thoracolumbar curve. Mild dege nerative change both hips. Lung bases are clear. Remainder of abdomen negative or without significant change. IMPRESSION: Right partial nephrectomy wi th no evidence of residual or recurrent disease. Obey ROJAS CT PROCEDURES documented in this encounter Visit Diagnoses Diagnosis Mass Kidney documented in this encounter Administered Medications Inactive Administered Medications - up to 3 most recent administrations Medication Order MAR Action Action Date Dose Rate Site iohexol 300 mg iodine/mL solution Given 10/09/2018 11:53 AM CDT 140 mL 1-200 mL (OMNIPAQUE) 1-200 mL, intravenous, Once in imaging, contrast, Starting on Sun10/09/18 at 1111, For 1 dose, Imaging Protocol Orders, Dose per Radiant Medication Guidelines documented in this encounter
--- OUTSIDE RECORDS SUMMARY | 2022-02-09 08:08 | XMS_ITS | Encounter Summary ---
:1955 Author Organization [facility] Address [address] [place] [address] Care Team Providers Name Role Phone Unavailable Primary Care Provider Unavailable Reason for Visit Reason Onset Date Comments Bladder Infection 08/15/2018 Encounter Details Date Type Department Care Team Description 08/15/2018 Clinical Communication Department of Charles Silverio Urology in Edy Wagoner M.D. 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 Mrs. Willis called stating stating that she was seen locally at the [facility] in [place], [place], this morning and had a UA done for a bladder infection. There is a note available in Care Everywhere for this. She was started on Bactrim 2x/day as they are leaving the state for a few days. Once the Cx result is available, they will change her Rx, if needed. Mrs. Willis just wanted Dr. Silverio's service to be aware of this. Thanks. documented in this encounter Plan of Treatment Not on filedocumented as of this encounter Visit Diagnoses Not on filedocumented in this encounter
--- OUTSIDE RECORDS SUMMARY | 2022-02-09 08:08 | XMS_ITS | Encounter Summary ---
:1955 Author Organization [facility] Address [address] [place] [address] Care Team Providers Name Role Phone Unavailable Primary Care Provider Unavailable Reason for Referral Outpatient (Routine) - Closed Specialty Diagnoses / Procedures Referred By Contact Refer red To Contact Dermatology Diagnoses Lentigo Maligna Face (HCC) Jovani Canales M.D., [facility] Procedures [facility] 1-4 sites M.S. [address] [place] [phone] Referral ID Status Reason Start Date Expiration Date Visits Requ ested Visits Authorized [id number] Closed 09/10/2018 09/10/2019 1 1 Encounter Details Date Type Department Care Team Description 09/10/2018 Orders Only Department of Jovani Canales, Lentigo Ma ligna Face Dermatology in De MJenniferSJennifer (HCC) (Primary Dx) [place], [place] [address] [facility] [address] [place] [phone] Social History Tobacco Use Types Packs/Day Years [...] or slept in a custodial (including now)? 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
--- OUTSIDE RECORDS SUMMARY | 2022-02-09 08:08 | XMS_ITS | Encounter Summary ---
:1955 Author Organization [facility] Address [address] [place] [address] Care Team Providers Name Role Phone Unavailable Primary Care Provider Unavailable Reason for Visit Appointment Request (Routine) - Closed Specialty Diagnoses / Procedures Referred By Contact Refer red To Contact Dermatology Referral ID Status Reason Start Date Expiration Date Visits Requ ested Visits Authorized [id number] Closed 09/09/2018 09/09/2019 1 Encounter Details Date Type Department Care Team Description 09/23/2018 Comprehensive Visit Department of Jovani Canales Tumor Skin Uncertain Behavior (Primary Dx); Dermatology in [place] Nevi Multiple; [place], [place] [address] [facility] Screening Examination Skin Cancer; [address] [place], [place] Lentigo Maligna Face (HCC); [place] [address] [place] [id number] [phone] Social History Tobacco Use Types Packs/Day Years [...] or relatives? How often do you attend hindu or More than 4 times per year 08/15/2021 adventist services? 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 - 09/23/2018 9:45 AM CDT Shave biopy was performed as ordered and outlined by Dr. Prabhjot Canales ([id number]) in the clinical note dated with today's date. documented in this encounter Consult Notes Jovani Canales M.D., M.S. - 09/23/2018 9:45 AM CDT REFERRING PROVIDER No referring provider defined for this encounter. CHIEF COMPLAINT Malignant melanoma in situ, lentigo maligna type, Dorian level I-left mandible HISTORY OF THE PRESENT ILLNESS Mrs. Karyna Willis is a pleasant 63 y.o. female who is coming in today with a prior history of a malignant melanoma in situ, lentigo maligna type, Dorian level I that was identified and biopsied from the left mandible on September 16, 2018. She has an appointment to have this treated via Mohs surgery 2018. Mrs. Willis comes in today for a melanoma screening examination also wondering about a spot that has been frozen recently on the left upper cutaneous lip at the vermilion border. ?? PAST MEDICAL HISTORY Malignant melanoma in situ, lentigo maligna type, Dorian level I-left mandible Allergies Allergen Reactions ??? Pantoprazole Other (see comments) swelling to uvula, and rash in groin ??? Hydrochlorothiazide Angioedema Not clearly related but possible. ??? Rabeprazole Rash Groin area FAMILY HISTORY No immediate members of the family with skin cancer. ?? 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 REVIEW OF SYSTEMS Systems were reviewed today and were noncontributory for gastrointestinal, genitourinary, rheumatologic, respiratory, neurologic, and constitutional symptoms. She does however have blurry vision an tinnitus from time to time that is felt to be her baseline, in addition to some pain in the right rib cage that is felt to be due to the recent surgery that she has had. PHYSICAL EXAM General: Awake, alert, in no acute distress, and with appropriate affect. Skin: Examination performed of the head (including ears and scalp), neck, chest (including breasts and axilla), abdomen, back, upper extremities, lower extremities, hands and feet (including digits), groin and buttock per patient's request. Examination reveals Allen type II skin. There is an erythematous subtly hyperkeratotic papule on the left upper cutaneous lip at the vermilion border measuring approximately 2-3 mm in diameter. Multiple hyperpigmented macules noted that appear benign in nature many of which were evaluated dermoscopically. No other lesions of concern identified. Lymph: No lymphadenopathy appreciated in the cervical, supraclavicular, axillary, inguinal, or popliteal lymph node chains. ?? IMPRESSION AND PLAN #1 Malignant melanoma in situ, lentigo maligna type, Dorian level I-right mandible This will be treated surgically under the care of Dr. Malone September 25, 2018. 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 We explained the potential diagnosis and recommended that we obtain a biopsy. The risks and benefitsof the procedure were discussed, and the patient consented to these procedures. Using 1% lidocaine with epinephrine for local anesthesia, a shave biopsy was obtained from the left upper cutaneous lip, half submitted to Dermatopathology for H&E, and have sent for frozen section. Special stains will be performed as indicated. The bleeding was well controlled with application of aluminum chloride. Dressing was applied, and wound care instructions were explained. Biopsy results and any further recommendations will be communicated to the patient by letter. Patient given pamphlet [id number]. If this ends up being a squamous cell carcinoma in situ this could be treated potentially with electrodesiccation and curettage at the time of her Mohs surgery appointment on September 25, 2018. 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 No treatment desired or necessary at this point time. Mrs. Willis will continue to use sunscreen on a regular basis. #4 Melanotic macule-insight right labia minora This appears to be benign on examination today. I have encouraged Mrs. 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 All questions addressed and answered. Ms. Willis should sun protect daily and monitor her skin regularly. Full skin examinations in the Dermatology Department would be recommended on an every 6 month basis. All questions addressed and answered today, and Ms. Willis is welcome to call should any questions or concerns arise in the future. INFORMED CONSENT Discussed the risks, benefits, alternatives, and the necessity of other members of the healthcare team participating in the procedure. All questions answered and consent given. ?? PATIENT EDUCATION Ready to learn. No apparent learning barriers were identified. Learning preferences include listening. Explained diagnosis and treatment plan; patient/guardian of patient expressed understanding of thecontent. documented in this encounter Plan of Treatment Not on filedocumented as of this encounter Procedures Procedure Name Priority Date/Time Associated Diagnosis Comme nts DERMATOPATHOLOGY Routine 09/23/2018 9:56 AM Resul ts for this CDT procedure are i n the results section. documented in this encounter Results Dermatopathology (09/23/2018 9:56 AM CDT) Component Value Ref Test Analysis Performed At [facility] Range Method Time Signature Frozen Section A. ??Left upper cutaneous lip, Skin frozen biopsy: ? ?Await 09/25/2018 [facility] Interpretation permanent sections 4:06 PM ANNABELLA MCQUEEN - Signed by Laura Zamora M.D. CDT [facility] Gross Description Received in formalin labeled with the patient's n elida, 09/25/2018 [facility] medical record number and left upper cutaneous lip is a 4:06 PM LABORATORIES - generic cassette containing one portion of a previously [facility] hemisected skin shave biopsy, previously evaluated by [facility]O frozen section. The specimen is a 0.5 x 0.2 x 0.1 cm pale pace-lee portion of skin shave biopsy. No discrete lesion is grossly identified on the skin surface. ??The specimen is submitted entirely in cassette A1. Additionally received within the same container is the remaining portion of the hemisected skin shave biopsy. The specimen is a 0.4 x 0.3 x 0.1 cm pale pace-lee portion of skin shave biopsy. No discrete lesion is grossly identified on the skin surface. ??The specimen is, submitted entirely in cassette A2. ??Grossed by LASHAE. Participated in Leigh Easton 09/25/2018 [facility] arpan Ortiz, 4:06 PM LABORATORIES - Interpretation M.Omar-Pathology [facility] Report Ena IJennifer 09/25/2018 [facility] electronically [place] 4:06 PM LABORATORIE S - signed by [facility] 09/25/2018 [facility] 4:06 PM LABORATORIES - [facility] Interpretation FINAL DIAGNOSIS 09/25/2018 [facility] TINO A. ??Left upper cutaneous lip, Skin shave biopsy: ??Actini c 4:06 PM LABORATORIES - keratosis and solar elastosis [facility] Specimen (Source) Anatomical Collection Method Collection Time Re ceived Time Location / / Volume Laterality Skin (Left upper 09/23/2018 9:56 AM cutaneous lip) T Narrative This result has an attachment that is no t available. Jovani Canales M.D., M.S. LAB PATH DERM ORDERABLES Performing Organization Address City/State/ZIP Code Phon e Number [facility] - [address] documented in this encounter Visit Diagnoses Diagnosis Tumor Skin Uncertain Behavior - Primary Nev[place] Multiple Screening Examination Skin Cancer Lentigo Maligna Face (HCC) [place]iloderma [place] documented in this encounter
--- OUTSIDE RECORDS SUMMARY | 2022-02-09 08:08 | XMS_ITS | Encounter Summary ---
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 [address] [place] [phone] 12[address] [facility] Jasen Blum D.O. [address] [place] [phone] [place] [phone] Anesthesia Record Procedure Summary Procedure Name Responsible Anesthesia Start Anesthesia Stop Time Anesthesiologist Time Barry Sun Maria N, M.D. 07/02/18 1432 07/02/18 1 906 Partial. (Right) Events Date Time Event Comment 07/02/2018 1432 An Start Machine/Equipmen t Checked Infection Precautions Foll owed Procedure/Site Verified NPO Sta tus Verified Supine Standard ASA Mon itors Applied 1432 In Room 1437 An Induction 1441 An Intubation Patient preoxyge nated with 100% oxygen via face mask pr ior to intubation. Patient intubate d atraumatically. Dentition unchan ged. Endotracheal tube secured with tie and circuit held securely with me maximino jang. 1443 Invasive catheter placement 1454 Turnover to Proceduralist 1511 Proc Start 1832 Proc Fin 1845 Turnover to ANE Staff 1845 Airway Removal Criteria Met 184 Extubation/Airway Removed 184 an stop data 1850 Out of Room 1906 An End I completed my h andoff to the receiving staff during [facility] we 1. Identified the patient 2. Ident ified the responsible provider 3. Revi ewed the pertinent medical history 4. Discussed the surgical course 5. Review ed intra-op anesthesia management and i ssues during anesthesia 6. Set expectati ons for post-procedure period 7. Allowe d opportunity for questions and ac knowledgement of understanding. Name Total lidocaine 2% (mg) injection 100 mg propofol 10 mg/mL 260 mg ondansetron 4 mg/2 mL injection 4 mg sugammadex 100 mg/mL injection 200 mg vecuronium 10 mg injection 23 mg propofol 10 mg/mL infusion 1,748.02 mg HYDROmorphone PF 100 mcg/mL Regional 200 mcg remifentanil 20 mcg/mL in NaCl 0.9% 250 mL infusion (U LTIVA) 3.2 mg dexamethasone 4 mg/mL injection 4 mg ceFAZolin injection 2,000 mg (ANCEF) 4 g droperidol 2.5 mg/mL injection 0.625 mg fentaNYL injection 25 mcg (SUBLIMAZE) 150 mcg phenylephrine 100 mcg/mL injection 850 mcg furosemide injection 20 mg/2 mL injection 20 mg mannitol 25% injection 12.5 g ePHEDrine PF 5 mg/mL injection 20 mg Lactated Ringers Free Drip 200 mL lactated ringers free drip 2,000 mL Agents No agents on file. Blood No blood administrations on file. Lines, Drains, and Airways Type Details Placement Removal Closed/Suction Drain 07/02/18; 1743; 1; 07/02/18 1743 by Right; Abdomen; Bulb; 10 Luz Chavez, . R.N. Peripheral IV Placement Date: 07/02/18 0848 by 07/07/18 1100 b y 07/02/18; Placement Grabiel Wagner Ad edayo T, Time: 0848; Catheter SCOOTER MECHANIC, C.N.P ., M.S.N. Size: 20 G; Orientation: Left; Location: Hand; Site Prep: Chlorhexidine (Preferred); Insertion Attempts: 1; Removal Date: 07/07/18; Removal Time: 1100 ETT Placement Date: 07/02/18 144 by 07/02/[id number] b y 07/02/18; Placement Estefanía Liao APRN, Emde, J ason J, APRN, Time: 144 (created via PLANER CHAIN OFFBEARER PLANER CHAIN OFFBEARER procedure documentation); Mask Ventilation: Easy mask; Type: Standard ETT; Cuffed: Yes; Blade Size: MAC 3; Location: Oral; Removal Date: 07/02/18; Removal Time: 1844 Arterial Line Placement Date: 07/02/18 144 by 07/02/181999 b y 07/02/18; Placemnt Time: Alejandro Al, Lillian jennings, Luz Kang, 144 (created via M.D. R.N. procedure documentation); Orientation: Left; Location: Radial; Site Prep: Chlorhexidine (Preferred); Technique: Anatomical landmarks; Insertion Attempts: 1; Securement: Securement dressing; Removal Date: 07/02/18; Removal Time: 1999 Indwelling Urinary Placement Date: 07/02/181451 by 07/03/18 09 2 by Catheter 07/02/18; Placement Lavonne Butts Freidhof, Kyleigh E, Time: 1451; Inserted by: Brigido Roawn CSA; Type: Non-latex; Size: 16 Fr.; Balloon Size: 5 mL (10 mL fill sterile water); Urine Returned: Yes; Removal Date: 07/03/18; Removal Time: 09; Removal Reason: Per order Peripheral IV Placement Date: 07/02/181453 by 07/07/18 1100 b y 07/02/18; Placement Estefanía Liao APRN, Dosumu, Adedayo T, Time: 1453; Catheter CAMPBELL HOUSTON, C.N.P Jennifer, M.S.N. Size: 16 G; Orientation: Right; Location: Antecubital; Removal Date: 07/07/18; Removal Time: 1100 NG/OG Tube 07/02/18; 1759; 07/02/18 1759 by 07/02/18 1844 b y Orogastric; 16 Fr; Alejandro Florentino APRN, Zak Florentino [place], Center; 07/02/18; 1844 PLANER CHAIN OFFBEARER PLANER CHAIN OFFBEARER (RETIRED) Incision 07/02/18; 1828; Abdomen; 07/02/18 1828 by 1418 by Mid; incisional wound; Luz Chavez, [facility] DRSG PRM WND LO ADH R.N. nd, Scheduli ng 4X11.75 (x1); 02/08/21 Automated Batch Job (Removed by background completion utility); 1418 (Removed by background completion utility) (RETIRED) Incision 07/02/18; 1828; Abdomen; 07/02/18 1828 by 0910 by Right; drain; Luz Larkin PRM, Deidra Gentile, WNJere NONADH 2X3 (x1); R.N. R.N. 07/05/18; 0910; Not removed. LOLI drain should be charted under I&O, not as an incision. Will continue to chart under I&O. documented in this encounter Social History Tobacco Use Types Packs/Day Years [...] Date Recorded Female 05/10/2018 8:56 AM SENIOR ANDROID SOFTWARE ENGINEER documented as of this encounter OR Notes Anesthesia Postprocedure Evaluation - Rony Rosenbaum M.D. - 07/02/2018 8:19 PM CST Patient: Karyna Willis Procedure Summary Date: 07/02/18 Room / Location: [address] / [facility] [place], [place] Anesthesia Start: 1432 Anesthesia Stop: 1905 Procedure: Nephrectomy, Partial. (Right ) Diagnosis: (renal mass.) Provider: Edy Silverio M.D. Responsible Provider: Alejandro Al M.D. Anesthesia Type: general with pain block ASA Status: 2 Anesthesia Type: general with pain block Last vitals Vitals Value Taken Time BP 129/81 07/02/2018 8:15 PM Temp 36.6 ??C 07/02/2018 8:05 PM Pulse 98 07/02/2018 8:18 PM Resp 13 07/02/2018 8:18 PM SpO2 97 % 07/02/2018 8:18 PM Vitals shown include unvalidated device data. Anesthesia Post Evaluation Patient Disposition: general care unit Cardiovascular status: hemodynamics (HR & BP) acceptable Respiratory status: patent airway with spontaneous effort Temperature: normothermic Oxygen requirements: nasal cannula Level of consciousness: awake Pain score: pain adequately controlled and/or at baseline Post Op nausea/vomiting: none Hydration status: euvolemic OR ANDROID SOFTWARE ENGINEER Anesthesia Preprocedure Evaluation - Alejandro Al M.D. - 07/02/2018 3:10 PM CST Anesthesia Pre-Evaluation Pertinent components of the patient's history including current problem list, medical history, surgical history, family history, social history, medications and allergies were reviewed and updated as appropriate. The patient was examined and the Pre-op diagnosis, planned procedure, and H&P were reviewed and remain unchanged. PROBLEM LIST Relevant Problems Other (+) Mass Kidney OBJECTIVE PHYSICAL EXAMINATION Airway (HEENT) Mallampati: II TM Distance: >3 FB Neck ROM: Full Mouth Opening: >3 cm Cardiovascular Rhythm: Regular Rate: Normal Cardiovascular Assessment: cardiovascular normal Pulmonary Pulmonary Assessment: Clear Neurological Neurologic Assessment:??alert Dental Dental Assessment: dentition intact General / Constitutional Constitutional Assessment: Normal ASSESSMENT / PLAN ANESTHESIA PLAN ASA: 2 Anesthesia Plan: general with pain block Patient seen and allergies reviewed; anesthesia plan and risks discussed directly with patient / legal guardian, or through an class a regional drivers; patient evaluated and approved for anesthesia / sedation. Use of blood products discussed with patient who consented to blood products. OR ANDROID SOFTWARE ENGINEER Anesthesia Procedure Notes - Estefanía Liao APRN, CRNA - 07/02/2018 3:07 PM SENIOR ANDROID SOFTWARE ENGINEER Associated Order(s): AIRWAY MANAGEMENT Airway Date/Time: 07/02/2018 2:41 PM Patient location during procedure: OR / Procedure Area Performed by: ESTEFANÍA LIAO Authorized by: ALEJANDRO AL Pre procedure details Pre evaluation for airway management: procedure Urgency: elective Preop assessment of probable difficulty: no difficulty anticipated Sedation level: anesthetized Preoxygenation: bag valve mask Procedure details Mask difficulty assessment: easy mask Final airway type: direct laryngoscopy, intubation Laryngeal Manipulation: no Final airway difficulty of direct laryngoscopy (DL): 0-easy Final best view of glottic structures - Cormack/Lehane Score: grade 1 ETT location: oral Adult blade type: MAC 3 Adult ETT distance at teeth/gum: 22 Oral tube type: standard ETT Cuffed: yes Number of attempt to successful placement: 1 Airway confirmation: bilateral breath sounds, positive ETCO2 and bilateral chest rise Other previous techniques attempted: none Post procedure details Procedure outcome: successful Airway event: no complications Additional Comments Atraumatic intubation. Dentition unchanged. OR ANDROID SOFTWARE ENGINEER Anesthesia Procedure Notes - Estefanía Liao APRN, CRNA - 07/02/2018 3:05 PM SENIOR ANDROID SOFTWARE ENGINEER Associated Order(s): MC ANE INVASIVE CATHETER Invasive Catheter Date/Time: 07/02/2018 2:45 PM Performed by: ALEJANDOR AL Authorized by: ALEJANDRO AL Location: OR Pre-procedure prep: Appropriate hand hygiene, gown, cap, mask, protective eyewear, sterile gloves, skin preparation, sterile drape, and strict aseptic technique were utilized as applicable for the procedure.: yes Skin preparation: chlorhexidine Sedation/Anesthesia (see MAR for exact dosages): Anesthesia method: Under general anesthesia. Procedure details: Line type: arterial Laterality: left Location: radial Location details: new site Age group: adult Catheter diameter: 20 Ga Technique: palpation Monitored: yes Number of attempts: 1 Post-procedure details: Procedure completed successfully: yes Line secured: secured with sutureless device Chlorhexidine disc around insertion site and under catheter with slight turn: yes Complications - arterial: none OR ANDROID SOFTWARE ENGINEER Anesthesia Procedure Notes - Tyler Rizvi M.D. - 07/02/2018 2:03 PM SENIOR ANDROID SOFTWARE ENGINEER Associated Order(s): ANESTHESIA REGIONAL BLOCK Regional Block Date/Time: 07/02/2018 2:03 PM Performed by: TYLER RIZVI Authorized by: TYLER RIZVI Location: Pre Op / PACU [place] protocol: All relevant documentation and testing were reviewed and available. All required blood products, implants, devices and/or special equipment were made available as applicable. The pre-procedure verification was conducted, the correct site was marked if required, and the procedural time out was conducted prior to performing the procedure and confirmed in a procedural pause: yes Pre-procedure details: Appropriate hand hygiene, gown, cap, mask, protective eyewear, sterile gloves, skin preparation, sterile drape, and strict aseptic technique were utilized as applicable for the procedure.: yes Skin prep: chlorhexidine Sedation/Anesthesia (see MAR for exact dosages): Anesthesia method: local infiltration Procedure details: Block type: post-op pain block Block type comment: Post-Op pain block at request of surgeon Neuraxial: spinal Positioning: sitting Approach: midline Level inserted: L4-5 Block technique: landmark technique Injection technique: single injection Needle type: sandra Gauge: 25G Length: 5 CSF: yes Pain with needle advancement or injection of local anesthetic: no Post-procedure details: Procedure completed successfully: successful procedure Other complications: none Comments: Comments: Spinal: Patient consented. R/B/A discussed Patient sedated and fully responsive. (+)CSF after 1st pass. No pain on injection or with needle advancement. (+)CSF postinjection. Patient tolerated procedure well without apparent complications. OR ANDROID SOFTWARE ENGINEER documented in this encounter Plan of Treatment Not on filedocumented as of this encounter Procedures Procedure Name Priority Date/Time Associated Comments Diagnosis LDA ANE ENDOTRACHEAL Routine 07/02/2018 3:07 PM R esults for this AIRWAY SENIOR ANDROID SOFTWARE ENGINEER procedure are i n the results section. LDA ANE ARTERIAL LINE Routine 07/02/2018 3:05 PM Results for this INSERTION SENIOR ANDROID SOFTWARE ENGINEER procedure are i n the results section. SD ARTL CATH/CNULA Routine 07/02/2018 3:05 PM Res ults for this MONITOR PERC SENIOR ANDROID SOFTWARE ENGINEER procedure are i n the results section. SD INJ SPINE LUMB/SAC Routine 07/02/2018 2:03 PM Results for this WO IMG SENIOR ANDROID SOFTWARE ENGINEER procedure are i n the results section. documented in this encounter Results LDA ANE ENDOTRACHEAL AIRWAY (07/02/2018 3:07 PM SENIOR ANDROID SOFTWARE ENGINEER) Narrative Estefanía Liao APRN, CRNA - 07/02/2018 3 :07 PM SENIOR ANDROID SOFTWARE ENGINEER Estefanía Liao APRN, CRNA ? 07/02/2018 ??3:08 PM Airway Date/Time: 07/02/2018 2:41 PM Patient location during procedure: OR / Procedure Area Performed by: ESTEFANÍA LIAO Authorized by: ALEJANDRO AL Pre procedure details ?? Pre evaluation for airway management : procedure ?? Urgency: elective ?? Preop assessment of probable difficu lty: no difficulty anticipated ?? Sedation level: anesthetized ?? Preoxygenation: bag valve mask Procedure details ??Mask difficulty assessment: easy mask ?? Final airway type: direct laryngosco py, intubation Laryngeal Manipulation: no ? Final airway difficulty of direct la ryngoscopy (DL): 0-easy ?? Final best view of glottic structure s - Cormack/Lehane Score: grade 1 ?? ETT location: oral ?? Adult blade type: MAC 3 ?? Adult ETT distance at teeth/gum: 22 ?? Oral tube type: standard ETT ?? Cuffed: yes ?? Number of attempt to successful plac ement: 1 ?? Airway confirmation: bilateral breat h sounds, positive ETCO2 and bilateral chest rise ?? Other previous techniques attempted: none Post procedure details ?? Procedure outcome: successful ? Airway event: no complications Additional Comments Atraumatic intubation. Dentition [facility] ed. ?? Procedure Note Estefanía Liao APRN, CRNA - 07/02/2018 3 :07 PM CST Airway Date/Time: 07/02/2018 2:41 PM Patient location during procedure: OR / Procedure Area Performed by: ESTEFANÍA LIAO Authorized by: ALEJANDRO AL Pre procedure details Pre evaluation for airway management: p rocedure Urgency: elective Preop assessment of probable difficulty : no difficulty anticipated Sedation level: anesthetized Preoxygenation: bag valve mask Procedure details Mask difficulty assessment: easy mask Final airway type: direct laryngoscopy, intubation Laryngeal Manipulation: no Final airway difficulty of direct laryn goscopy (DL): 0-easy Final best view of glottic structures - Cormack/Lehane Score: grade 1 ETT location: oral Adult blade type: MAC 3 Adult ETT distance at teeth/gum: 22 Oral tube type: standard ETT Cuffed: yes Number of attempt to successful placeme nt: 1 Airway confirmation: bilateral breath s ounds, positive ETCO2 and bilateral chest rise Other previous techniques attempted: no ne Post procedure details Procedure outcome: successful Airway event: no complications Additional Comments Atraumatic intubation. Dentition [facility] ed. Alejandro Al M.D. ANESTHESIA ORDERABLES SD ARTL CATH/CNULA MONITOR PERC, LDA ANE ARTERIAL LINE INSERTION (07/02/2018 3:05 PM SENIOR ANDROID SOFTWARE ENGINEER) Narrative Estefanía Liao APRN, CRNA - 07/02/2018 3 :05 PM SENIOR ANDROID SOFTWARE ENGINEER Estefanía Liao APRN, CRNA ? 07/02/2018 ??3:07 PM Invasive Catheter Date/Time: 07/02/2018 2:45 PM Performed by: ALEJANDRO AL Authorized by: ALEJANDRO AL Location: OR Pre-procedure prep: ??Appropriate hand hygiene, gown, cap, mask, protective eyewear, sterile gloves, skin preparation, sterile drape, and strict aseptic technique were utilized as applicable for the procedure .: yes ?Skin preparation: chlorhexidine ?? Sedation/Anesthesia (see MAR for exact d osages): ??Anesthesia method: Under general anes thesia. Procedure details: ??Line type: arterial ?Laterality: left ??Location: radial ??Location details: new site ?Age group: adult ??Catheter diameter: 20 Ga ??Technique: palpation ?Monitored: yes ?Number of attempts: 1 Post-procedure details: ??Procedure completed successfully: yes ?Line secured: secured with sutureless device ??Chlorhexidine disc around insertion s ite and under catheter with slight turn: yes ?Complications - arterial: none Procedure Note Estefanía Liao APRN, PLANER CHAIN OFFBEARER - 07/02/2018 3 :05 PM CST Invasive Catheter Date/Time: 07/02/2018 2:45 PM Performed by: ALEJANDRO AL Authorized by: ALEJANDRO AL Location: OR Pre-procedure prep: Appropriate hand hygiene, gown, cap, ma sk, protective eyewear, sterile gloves, skin preparation, sterile drape, and strict aseptic technique were utilized as applicable for the procedure.: yes Skin preparation: chlorhexidine Sedation/Anesthesia (see MAR for exact d osages): Anesthesia method: Under general anesth esia. Procedure details: Line type: arterial Laterality: left Location: radial Location details: new site Age group: adult Catheter diameter: 20 Ga Technique: palpation Monitored: yes Number of attempts: 1 Post-procedure details: Procedure completed successfully: yes Line secured: secured with sutureless d evice Chlorhexidine disc around insertion sit e and under catheter with slight turn: yes Complications - arterial: none Alejandro Al M.D. PROCEDURE/MINOR SURGICAL ORD ERABLES SD INJ SPINE LUMB/SAC WO IMG (07/02/2018 2:03 PM SENIOR ANDROID SOFTWARE ENGINEER) Narrative Licatino, Ayse K, M.D. - 07/02/2018 2: 03 PM SENIOR ANDROID SOFTWARE ENGINEER Tyler Rizvi M.D. ? 07/02/2018 ??2:04 PM Regional Block Date/Time: 07/02/2018 2:03 PM Performed by: TYLER RIZVI Authorized by: TYLER RIZVI Location: Pre Op / PACU [place] protocol: All relevant documentation and testing w ere reviewed and available. All required blood products, implants, devic es and/or special equipment were made available as applicable. The pre-pr ocedure verification was conducted, the correct site was marked i f required, and the procedural time out was conducted prior to performi ng the procedure and confirmed in a procedural pause: yes ?? Pre-procedure details: Appropriate hand hygiene, gown, cap, mas k, protective eyewear, sterile gloves, skin preparation, sterile drape, and strict aseptic technique were utilized as applicable for the procedure .: yes ?? Skin prep: chlorhexidine Sedation/Anesthesia (see MAR for exact d osages): Anesthesia method: local infiltration Procedure details: Block type: post-op pain block ?? Block type comment: Post-Op pain block a t request of surgeon Neuraxial: spinal ?? Positioning: sitting ?? Approach: midline Level inserted: L4-5 Block technique: landmark technique ?? Injection technique: single injection Needle type: sandra Gauge: 25G Length: 5 CSF: yes ?? Pain with needle advancement or injectio n of local anesthetic: no ?? Post-procedure details: Procedure completed successfully: succes sful procedure Other complications: none Comments: Comments: Spinal: Patient consented. R/B/A discussed Patie nt sedated and fully responsive. (+)CSF after 1st pass. No pain on inject ion or with needle advancement. (+)CSF postinjection. Patient tolerated procedure well without apparent complications. Tyler Rizvi M.D. PROCEDURE/MINOR SURGICAL ORD ERABLES documented in this encounter Visit Diagnoses Not on filedocumented in this encounter Administered Medications Inactive Administered Medications - up to 3 most recent administrations Medication Order MAR Action Action Date Dose Rate Site ceFAZolin injection 2,000 mg (ANCEF) Given 07/02/2018 6:10 PM SENIOR ANDROID SOFTWARE ENGINEER 2 g 2,000 mg (rounded from 1,900 mg = 25 mg/kg ? 76 kg), intravenous, Once, On Sun07/02/18 at 1315, For 1 dose, Intra-Op, Preoperatively within 1 hour prior to surgical incision [place] IV push over 3 minutes. Add 5 mL NS to 1 gram vial for a final concentration of 200 mg/mL., Drug Monitoring Program: Pharmacist to adjust medication dosing based on indication and drug clearance factors., Indications: Prophylaxis, surgical Given 07/02/2018 3:09 PM SENIOR ANDROID SOFTWARE ENGINEER 2 g dexamethasone injection (DECADRON) Given 07/02/2018 2:56 PM SENIOR ANDROID SOFTWARE ENGINEER 4 mg As needed, Starting on Sun07/02/18 at 1456, Anesthesia Intra-op droperidol injection (INAPSINE) Given 07/02/2018 6:14 PM SENIOR ANDROID SOFTWARE ENGINEER 0.625 mg intravenous, As needed, nausea, vomiting, Starting on Sun07/02/18 at 1814, Anesthesia Intra-op ePHEDrine (PF) injection Given 07/02/2018 5:58 PM SENIOR ANDROID SOFTWARE ENGINEER 5 mg As needed, Starting on Sun07/02/18 at 1744, Anesthesia Intra-op Given 07/02/2018 5:57 PM SENIOR ANDROID SOFTWARE ENGINEER 5 mg Given 07/02/2018 5:55 PM SENIOR ANDROID SOFTWARE ENGINEER 5 mg fentaNYL injection 25 mcg (SUBLIMAZE) Given 07/02/2018 6:32 PM SENIOR ANDROID SOFTWARE ENGINEER 50 mcg 25 mcg, intravenous, Every 2 min PRN, moderate pain or score 4-6 of 10, severe pain or score 7-10 of 10, Starting on Sun07/02/18 at 1339, Pre-Op, Up to maximum total dose of 100 mcg. Per anesthesia Given 07/02/2018 3:26 PM SENIOR ANDROID SOFTWARE ENGINEER 50 mcg Given 07/02/2018 3:19 PM SENIOR ANDROID SOFTWARE ENGINEER 50 mcg furosemide injection (LASIX) Given 07/02/2018 5:04 PM SENIOR ANDROID SOFTWARE ENGINEER 20 mg As needed, Starting on Sun07/02/18 at 1704, Anesthesia Intra-op HYDROmorphone injection Regional (DILAUD ID) Given 07/02/2018 2:02 PM SENIOR ANDROID SOFTWARE ENGINEER 200 mcg As needed, Starting on Sun07/02/18 at 1402, Anesthesia Intra-op lactated ringers New Bag 07/02/2018 2:32 PM SENIOR ANDROID SOFTWARE ENGINEER intravenous, Continuous Infusion: Per Instructions PRN, Starting on Sun07/02/18 at 1432, Anesthesia Intra-op lactated ringers New Bag 07/02/2018 6:22 PM SENIOR ANDROID SOFTWARE ENGINEER intravenous, Continuous Infusion: Per Instructions PRN, Starting on Sun07/02/18 at 1454, Anesthesia Intra-op New Bag 07/02/2018 4:59 PM SENIOR ANDROID SOFTWARE ENGINEER New Bag 07/02/2018 2:54 PM SENIOR ANDROID SOFTWARE ENGINEER lidocaine (PF) (cardiac) injection Given 07/02/2018 2:37 PM SENIOR ANDROID SOFTWARE ENGINEER 100 mg intravenous, As needed, Starting on Sun07/02/18 at 1437, Anesthesia Intra-op mannitol injection Given 07/02/2018 5:09 PM SENIOR ANDROID SOFTWARE ENGINEER 12.5 g As needed, Starting on Sun07/02/18 at 1709, Anesthesia Intra-op ondansetron (PF) injection (ZOFRAN) Given 07/02/2018 6:10 PM SENIOR ANDROID SOFTWARE ENGINEER 4 mg intravenous, As needed, nausea, vomiting, Starting on Sun07/02/18 at 1810, Anesthesia Intra-op phenylephrine injection Given 07/02/2018 6:31 PM SENIOR ANDROID SOFTWARE ENGINEER 150 mcg As needed, Starting on Sun07/02/18 at 1552, Anesthesia Intra-op Given 07/02/2018 6:26 PM SENIOR ANDROID SOFTWARE ENGINEER 200 mcg Given 07/02/2018 6:22 PM SENIOR ANDROID SOFTWARE ENGINEER 150 mcg propofol 10 mg/mL infusion Rate/Dose 07/02/2018 6:27 25 mcg/kg/min 1 1 mL/hr (DIPRIVAN) Change PM SENIOR ANDROID SOFTWARE ENGINEER intravenous, Continuous Infusion: Per Instructions PRN, Starting on Sun07/02/18 at 1437, Anesthesia Intra-op Rate/Dose Change 07/02/2018 5:47 PM SENIOR ANDROID SOFTWARE ENGINEER 50 mcg/kg/min 22 mL/hr Rate/Dose Change 07/02/2018 5:41 PM SENIOR ANDROID SOFTWARE ENGINEER 25 mcg/kg/min 11 mL/hr propofol injection (DIPRIVAN) Given 07/02/2018 6:03 PM SENIOR ANDROID SOFTWARE ENGINEER 30 mg intravenous, As needed, Starting on Sun07/02/18 at 1437, Anesthesia Intra-op Given 07/02/2018 5:48 PM SENIOR ANDROID SOFTWARE ENGINEER 30 mg Given 07/02/2018 3:58 PM SENIOR ANDROID SOFTWARE ENGINEER 50 mg remifentanil 20 mcg/mL in Restarted 07/02/2018 5:59 PM 0.3 mcg/k g/min 66.1 mL/hr NaCl 0.9% 250 mL infusion SENIOR ANDROID SOFTWARE ENGINEER (ULTIVA) Continuous Infusion: Per Instructions PRN, Starting on Sun07/02/18 at 1437, Anesthesia Intra-op Rate/Dose Change 07/02/2018 5:30 PM SENIOR ANDROID SOFTWARE ENGINEER 0.3 mcg/kg/min 66.1 mL/hr Rate/Dose Change 07/02/2018 4:22 PM SENIOR ANDROID SOFTWARE ENGINEER 0.1 mcg/kg/min 22 mL/hr sugammadex injection (BRIDION) Given 07/02/2018 6:32 PM SENIOR ANDROID SOFTWARE ENGINEER 200 mg As needed, Starting on Sun07/02/18 at 1832, Anesthesia Intra-op vecuronium injection (NORCURON) Given 07/02/2018 5:19 PM SENIOR ANDROID SOFTWARE ENGINEER 3 mg As needed, Starting on Sun07/02/18 at 1503, Anesthesia Intra-op Given 07/02/2018 5:00 PM SENIOR ANDROID SOFTWARE ENGINEER 2 mg Given 07/02/2018 4:37 PM SENIOR ANDROID SOFTWARE ENGINEER 2 mg documented in this encounter
--- OUTSIDE RECORDS SUMMARY | 2022-02-09 08:08 | XMS_ITS | Encounter Summary ---
:1955 Author Organization [facility] Address [address] [place] [address] Care Team Providers Name Role Phone Unavailable Primary Care Provider Unavailable Encounter Details Date Type Department Care Team Description 09/23/2018 Ancillary Procedure Department of Dermatology Social History [...] or relatives? How often do you attend catholic or More than 4 times per year 08/15/2021 mormon services? Do you belong to any clubs or Yes 08/15/2021 organizations such as catholic groups, unions, fraternal or athletic groups, [...] at Date Recorded Female 05/10/2018 8:56 AM SEWING DEMONSTRATOR documented as of this encounter Plan of Treatment Not on filedocumented as of this encounter Procedures Procedure Name Priority Date/Time Associated Comments Diagnosis DERMATOLOGY IMAGE Routine 09/23/2018 12:00 Result s for this EXAM PM CDT procedure are i n the results section. documented in this encounter Results lip, left upper cutaneous 29-Dermatology Image Exam (09/23/2018 12:00 PM CDT) Specimen (Source) Anatomical Location Collection Method / Collectio n Time Received Time / Laterality Volume Narrative IIMS - 09/23/2018 4:17 PM CDT This order has been created [...]
--- OUTSIDE RECORDS SUMMARY | 2022-02-09 08:08 | XMS_ITS | Encounter Summary ---
:1955 Author Organization [facility] Address [address] [place] [address] Care Team Providers Name Role Phone Unavailable Primary Care Provider Unavailable Reason for Visit Reason Onset Date Comments PO issues 07/18/2018 Encounter Details Date Type Department Care Team Description 07/18/2018 Clinical Communication Department of Urology Edy Silverio PO issues in Rizwana López M.D. [place] [address] [address] [facility] [address] [place] [phone] Social History Tobacco Use Types Packs/Day Years [...] at Date Recorded Female 05/10/2018 8:56 AM BROTH SETTER documented as of this encounter Miscellaneous Notes Telephone Encounter - Kerry Liao - 07/18/2018 4:28 PM CST Patient called to give an update. She was seen at her local ER and everything is just fine. She is doing well. H SETTER Telephone Encounter - Violet Robertson R.N. - 07/18/2018 8:51 AM CST HISTORY OF PRESENT ILLNESS Mrs. Willis is status post right partial nephrectomy on 07/02/[address] Silverio. She was dismissedon 07/07/2018. She has been doing well until Sunday when she had a sensation behind her left leg but was unable to feel or see anything concerning. She started wearing the GAGANDEEP stockings. Last night at7 pm, she had a short sharp episode of SOB and was unable to breathe. She denies fever, incisional changes, cough, pain and the sensation has not returned. Today, she has the sensation that she is unable to completely inflate the left lung. The following portions of the patient's history were reviewed and updated as appropriate: current medications, medical history, surgical history and problem list. ASSESSMENT / PLAN Mrs. Willis was informed that evaluation in an Emergency Department would be most appropriate at thistime. Disposition/Recommendation: report to the nearest emergency department, recommend not to drive self and provider notified, her will be driving to the [place] ED. Education: patient/caller able to teach back Caller agreeable to plan of care: yes The following references were used: nursing clinical judgement, provider: Dr. Carlos and Gaston Estrada, JONH. H SETTER Telephone Encounter - Brianda Esquivel Nanda - 07/18/2018 8:42 AM CST Patient called. She had surgery with Dr. Silverio on 07/02. She said that last week she had a sensation behind her left leg. She has been wearing TEDS since then. Last night about 7 pm she bent over and had a sharp, sudden shortness of breath. This morning she feels like she can't inflate her left lung. She thinks she needs to be seen. Wondering where she should go. She would like a call at [phone]. Thank you. H SETTER documented in this encounter Plan of Treatment Not on filedocumented as of this encounter Visit Diagnoses Not on filedocumented in this encounter
--- OUTSIDE RECORDS SUMMARY | 2022-02-09 08:08 | XMS_ITS | Encounter Summary ---
:1955 Author Organization [facility] Address [address] [place] [address] Care Team Providers Name Role Phone Unavailable Primary Care Provider Unavailable Encounter Details Date Type Department Care Team Description 09/09/2018 Ancillary Procedure Department of Dermatology Social History [...] or slept in a snf (including now)? Sex Assigned at Date Recorded Female 05/10/2018 8:56 AM KITCHEN WORKER documented as of this encounter Plan of Treatment Not on filedocumented as of this encounter Procedures Procedure Name Priority Date/Time Associated Comments Diagnosis DERMATOLOGY IMAGE Routine 09/09/2018 12:00 Result s for this EXAM PM CDT procedure are i n the results section. documented in this encounter Results Face 507-Dermatology Image Exam (09/09/2018 12:00 PM CDT) Specimen (Source) Anatomical Location Collection Method / Collectio n Time Received Time / Laterality Volume Narrative IIMS - 09/10/2018 9:41 AM CDT This order has been created [...]
--- OUTSIDE RECORDS SUMMARY | 2022-02-09 08:08 | XMS_ITS | Encounter Summary ---
:1955 Author Organization [facility] Address [address] [place] [address] Care Team Providers Name Role Phone Unavailable Primary Care Provider Unavailable Reason for Visit Reason Onset Date Comments Outside records 07/23/2018 [facility] Encounter Details Date Type Department Care Team Description 07/23/2018 Clinical Communication Department of Holland Silverio Urology in Edy Wagoner M.D. ([facility]) [place], [facility] [address] [place], [place] [address] [facility] [address] [place], [place] [phone] (Work) [phone] Social History Tobacco Use Types Packs/Day Years [...] at Date Recorded Female 05/10/2018 8:56 AM BI TRI OPERATOR documented as of this encounter Miscellaneous Notes Telephone Encounter - Shanta Mcqueen - 07/23/2018 2:39 PM CST Received records to Dr. Silverio's attention from [facility]. These records have been scanned into the patient's chart under document viewer. TRI OPERATOR documented in this encounter Plan of Treatment Not on filedocumented as of this encounter Visit Diagnoses Not on filedocumented in this encounter
--- OUTSIDE RECORDS SUMMARY | 2022-02-09 08:08 | XMS_ITS | Encounter Summary ---
:1955 Author Organization [facility] Address [address] [place] [address] Care Team Providers Name Role Phone Unavailable Primary Care Provider Unavailable Encounter Details Date Type Department Care Team Description 09/11/2018 Orders Only Department of Jovani Canales Lentigo Ma ligna Face Dermatology in [place], M.S. ([facility]) (Primary Dx) [place], [place] [address] [facility] [address] [place] [phone] Social History Tobacco Use Types Packs/Day Years [...] or relatives? How often do you attend sikhism or More than 4 times per year 08/15/2021 islam services? Do you belong to any clubs or Yes 08/15/2021 organizations such as sikhism groups, unions, fraternal or athletic groups, or [...] at Date Recorded Female 05/10/2018 8:56 AM PROOF READER documented as of this encounter Plan of Treatment Not on filedocumented as of this encounter Results Pathology Review of Outside Material (09/16/2018 2:25 PM [facility]) Component Value Ref Test Analysis Performed At [facility] Range Method Time Signature 09/19/2018 [facility] 11:51 AM LABORATORIES - [facility] Participated in Leigh Ortiz, 09/19/2018 [facility] Rizwana Mora-Pathology 11:51 AM LABORATORIES - Interpretation Fellow [facility] Report Devon Esquivel M.D. 09/19/2018 [facility] electronically I verify that I have examined all relevant slides/ma terials 11:51 AM LABORATORIES - signed by for the specimen(s) and rendered or confirmed the diagnosi s. [facility] Material A. [id number]: Skin, mandible, left 0 09/19/2018 [facility] Received ? 1 stained slide, 5 unstained slides 11:51 AM LABORATORIES - [facility] Disclaimer This test was developed and its performance characteri stics 09/19/2018 [facility] determined by [facility] in a manner consistent with CLIA 11:51 AM LABORATORIES - requirements. This test has not been cleared or approved b y [facility] the U.S. Food and Drug Administration. CAMPUS Addendum Melan A stain highlights the atypical melanocytic 10/07/2018 [facility] proliferation. 1:34 PM LABORATORIES - ANCILLARY STUDIES [facility] IN Melan A stain was performed at [facility] on unstained CAMPUS slide(s) provided by the referring institution. Signed by Devon Esquivel M.D. 10/07/2018 1:34 PM This test was developed and its performance characteristics determined by [facility] in a manner consistent with CLIA requirements. This test has not been cleared or approved by the U.S. Food and Drug Administration. Comment: REVISED RESULTS Interpretation FINAL DIAGNOSIS 10/07/2018 1:34 PM [facility] A. 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
--- OUTSIDE RECORDS SUMMARY | 2022-02-09 08:09 | XMS_ITS | Encounter Summary ---
:1955 Author Organization [facility] Address [address] [place] [address] Care Team Providers Name Role Phone Unavailable Primary Care Provider Unavailable Encounter Details Date Type Department Care Team Description 05/22/2018 Clinical Communication Department of Urology Rita Farrar in [facility], Renée, M.S. [place] [address] [facility] [address] [place] [address] [phone] Social History Tobacco Use Types Packs/Day Years Used Date Smoking Tobacco: Never Assessed Alcohol Habits Answer Date Recorded How often [...] More than 4 times per year 08/15/2021 baptist services? Do you belong to any clubs [...] or slept in a longterm (including now)? Sex Assigned at Date Recorded Female 05/10/2018 8:56 AM MICROSTRATEGY ARCHITECT documented as of this encounter Miscellaneous Notes Telephone Encounter - Rita Farrar P.A.-C., M.S. - 05/22/2018 4:10 PM MICROSTRATEGY ARCHITECT No answer. Left message to call back. Can't do her procedure on 06/04/18 due to Charles's procedure. We would like to move her to 06/06/18, if possible for her. This would put 4 primary and 1 secondary casethat day. Otherwise, we can move her to another day that is open. OSTRATEGY ARCHITECT documented in this encounter Plan of Treatment Not on filedocumented as of this encounter Visit Diagnoses Not on filedocumented in this encounter
--- OUTSIDE RECORDS SUMMARY | 2022-02-09 08:09 | XMS_ITS | Encounter Summary ---
:1955 Author Organization [facility] Address [address] [place] [address] Care Team Providers Name Role Phone Unavailable Primary Care Provider Unavailable Encounter Details Date Type Department Care Team Description 06/25/2018 Clinical Communication Department of Urology Hermelindo Estrada in [place], , ROSEMARIE, C.N.P. [place] [address] [facility] [address] [place] [phone] [phone] Social History Tobacco Use Types Packs/Day Years [...] or slept in a residential (including now)? Sex Assigned at Date Recorded Female 05/10/2018 8:56 AM SURVEY STATISTICIAN documented as of this encounter Miscellaneous Notes Telephone Encounter - Hermelindo sEtrada APRN, C.N.P. - 06/25/2018 3:46 PM SURVEY STATISTICIAN The patient called with some questions regarding the anesthesia with her surgery. She had some records sent from surgery she had in 2004. They are scanned into outside documents. She inquires if there was a drug list for the medicine she had received and I discussed that there was no drug list in these outside records. For this surgery, she had a spinal injection. She did not have a good experience with this. I discussed that for the surgery this plan for her, this would typically be done with general anesthesia. She states that she is very sensitive to narcotics. She had several additional questions that I answered for. We look for to seeing her next week for her listing visit. EY STATISTICIAN documented in this encounter Plan of Treatment Not on filedocumented as of this encounter Visit Diagnoses Not on filedocumented in this encounter
--- OUTSIDE RECORDS SUMMARY | 2022-02-09 08:09 | XMS_ITS | Encounter Summary ---
:1955 Author Organization [facility] Address [address] [place] [address] Care Team Providers Name Role Phone Unavailable Primary Care Provider Unavailable Encounter Details Date Type Department Care Team Description 05/07/2018 Clinical Communication [facility] [place] [address] [facility] [address] [place] [phone] [phone] Social History Tobacco Use Types Packs/Day Years [...] at Date Recorded Female 05/10/2018 8:56 AM LIGHT COIL WINDER documented as of this encounter Plan of Treatment Not on filedocumented as of this encounter Visit Diagnoses Diagnosis Mass Kidney - Primary documented in this encounter
--- OUTSIDE RECORDS SUMMARY | 2022-02-09 08:09 | XMS_ITS | Encounter Summary ---
:1955 Author Organization [facility] Address [address] [place] [address] Care Team Providers Name Role Phone Unavailable Primary Care Provider Unavailable Reason for Visit Appointment Request (Routine) - Closed Specialty Diagnoses / Procedures Referred By Contact Refer red To Contact Urology Destiny Bae P.A.-C. [address] [place] [address] Referral ID Status Reason Start Date Expiration Date Visits Requ ested Visits Authorized [id number] Closed 05/07/2018 05/07/2019 1 1 Encounter Details Date Type Department Care Team Description 05/10/2018 Comprehensive Visit Department of Jaskaran Charles, [facility] (Primary Urology in M.D. Dx) [place], [address] [place] [address] [address] [facility] [address] [place], [place] [phone] (Work) [phone] Social History Tobacco Use Types Packs/Day Years [...] at Date Recorded Female 05/10/2018 8:56 AM THERAPEUTIC RADIOLOGIST documented as of this encounter Progress Notes Jaskaran Charles M.D. - 05/10/2018 9:30 AM CST SUBJECTIVE REQUESTING PROVIDER Destiny Bae, PSerenity. REASON FOR CONSULT Renal mass HISTORY OF PRESENT ILLNESS Patient was in her usual state of health until May 05 when she reported a local emergency department with complaints of irregular heartbeat, fever and shortness of breath. Patient has CT scan ofthe chest that showed incidental finding of a 6.3 cm right renal mass. Additionally, a 7 mm pulmonary nodule and multiple indeterminate liver lesions were seen. Patient denies any bone pain anorexia weight loss. Patient denies any gross hematuria. Patient has no history of tobacco abuse. 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 Renal Oncologic History Details Initial Clinical Staging Pathologic Staging Prior Therapies Details Radiation (Gy and Fractions) - Prior Surgical Treatment Lower Urinary Symptoms Presence of pelvic pain: abdominal pain (+) bone pain (-) flank pain (+) suprapubic pain (-) perineal pain (-) testicular pain (-) no patient reported pain (-) General Oncologic Symptoms abdominal pain (+) flank pain (+) perineal pain (-) weight loss (-) fatigue (+) bone pain (-) suprapubic pain (-) no patient reported pain (-) testicular pain (-) Prior Oncologic Therapies: history of prior chemotherapy (-) history of radiation (-) chemotherapy (-) currently receiving treatment (-) Chemical exposures: toxic chemical exposure (-) ECO - normal activity The following portions of the patient's history were reviewed and updated as appropriate: allergies,current medications, family history, medical history, social history, surgical history and problem list. REVIEW OF SYSTEMS Constitutional: Positive for fatigue. Negative for weight loss. Gastrointestinal: Positive for abdominal (belly) pain or cramping. Genitourinary: Positive for flank pain. Negative for testicular pain. OBJECTIVE There were no vitals filed for this visit. PHYSICAL EXAM Constitutional: She is oriented to person, place, and time. She appears well- developed and well-nourished. HENT: Head: Normocephalic and atraumatic. Eyes: EOM are normal. Neck: Normal range of motion. Neck supple. Pulmonary/Chest: Effort normal. Abdominal: Abdomen appears normal and soft. Musculoskeletal: Normal range of motion. Neurological: She is alert and oriented to person, place, and time. Skin: Skin is warm and dry. Psychiatric: She has a normal mood and affect. Her behavior is normal. Judgment and thought content normal. LABORATORY Outside labs: WNL for CBC and CMP (creatinine 0.91) IMAGING No results found. Outside film /reports verifies presence of right renal mass ASSESSMENT / PLAN #1 Right renal mass Based on age, sex, race, tumor size and Charlson Score, a competing risk analysis puts the patient's5 year risk of from renal carcinoma to be around 6%. Over the same 5 year period, his risk of from all other causes is 11%. We discussed treatment options for the patient including partial nephrectomy, radical nephrectomy, percutaneous thermal ablation and renal mass biopsy. After discussing the merits and disadvantages of each approach, patient opts for laparoscopic radical nephrectomy. We have tentatively scheduled this for June 04 with return for listing and MARYA on June 03. We will have films reviewed by our radiologists. Signed by: Jaskaran Charles M.D. 05/10/2018 10:53 AM APEUTIC RADIOLOGIST documented in this encounter Plan of Treatment Not on filedocumented as of this encounter Results Interpretation of Outside CT Abdomen and or Pelvis (05/10/2018 11:18 AM THERAPEUTIC RADIOLOGIST) Anatomical Region Laterality Modality Abdomen, Pelvis, Abdominal RST LOS, Abdominal ARZ LOS, N/A Computed Tomography Abdominal FLA LOS Specimen (Source) Anatomical Collection Method Collection Time Re ceived Time Location / / Volume Laterality 05/13/2018 9:28 AM THERAPEUTIC RADIOLOGIST Impressions 05/13/2018 9:38 AM THERAPEUTIC RADIOLOGIST IMPRESSION: ?? 1. RIGHT kidney 6.7 cm lobulated partial ly exophytic right renal mass, most consistent with primary renal neoplasm. 2. Low-attenuation liver lesions, should represent hemangiomas or cysts. Could be further characterized with ultrasound . 3. Indeterminant small right middle lobe pulmonary nodule. Narrative 05/13/2018 9:38 AM THERAPEUTIC RADIOLOGIST EXAM: ??INTERPRETATION OF OUTSIDE CT ABDOMEN AND OR PELVIS with IV contrast dated 05/06/2018 COMPARISON: ??Outside CT chest 8. FINDINGS: ?? 6.7 x 5.5 x 3.9 cm lobulated partially e xophytic right renal mass with extension to central renal sinus fat (series 2 john ge 60, series 4 image 56, series 5 image 88). Cephalad portions of mass are in th e immediate proximity of the liver edge, without liver involvement evident. No re nal vein involvement on this single phase study. Unremarkable adrenal glands . No adenopathy. Incompletely visualized 5 mm nodule ante rior right middle lobe, as further seen on outside CT chest 05/05/2018 (series 2 image 2). Bibasilar atelectasis. Small hiatal mallika ia. Low-density liver lesions, presumed cysts or hemangiomas. Accessory splenule . Small fat-containing periumbilical hernia. Procedure Note Marc Paul M.B., B.Ch. - 2017 EXAM: INTERPRETATION OF OUTSIDE CT ABDOM EN AND OR PELVIS with IV contrast dated 05/06/2018 COMPARISON: Outside CT chest 05/05/2018. FINDINGS: 6.7 x 5.5 x 3.9 cm lobulated partially e xophytic right renal mass with extension to central renal sinus fat (series 2 john ge 60, series 4 image 56, series 5 image 88). Cephalad portions of mass are in th e immediate proximity of the liver edge, without liver involvement evident. No re nal vein involvement on this single phase study. Unremarkable adrenal glands . No adenopathy. Incompletely visualized 5 mm nodule ante rior right middle lobe, as further seen on outside CT chest 05/05/2018 (series 2 image 2). Bibasilar atelectasis. Small hiatal mallika ia. Low-density liver lesions, presumed cysts or hemangiomas. Accessory splenule . Small fat-containing periumbilical hernia. IMPRESSION: 1. RIGHT kidney 6.7 cm lobulated partial ly exophytic right renal mass, most consistent with primary renal neoplasm. 2. Low-attenuation liver lesions, should represent hemangiomas or cysts. Could be further characterized with ultrasound . 3. Indeterminant small right middle lobe pulmonary nodule. Jaskaran ROJAS CT PROCEDURES documented in this encounter Visit Diagnoses Diagnosis Mass Kidney - Primary Mass Kidney documented in this encounter
--- OUTSIDE RECORDS SUMMARY | 2022-02-09 08:09 | XMS_ITS | Encounter Summary ---
:1955 Author Organization [facility] Address [address] [place] [address] Care Team Providers Name Role Phone Unavailable Primary Care Provider Unavailable Reason for Visit Outpatient (Routine) - Closed Specialty Diagnoses / Procedures Referred By Contact Refer red To Contact Urology Benjamin Carlos M.D. [address] [address] Referral ID Status Reason Start Date Expiration Date Visits Requ ested Visits Authorized [id number] Closed 05/27/2018 05/27/2019 1 1 Encounter Details Date Type Department Care Team Description 07/01/2018 Office Visit Department of Urology Edy Silverio [facility] (Primary in [place], [place]agon[place] Dx) [address] [phone] Social History Tobacco Use Types Packs/Day Years [...] at Date Recorded Female 05/10/2018 8:56 AM TAMPING MACHINE OPERATOR documented as of this encounter Progress Notes Mali Middleton M.D. - 07/01/2018 2:00 PM CST SUBJECTIVE CHIEF COMPLAINT/REASON FOR VISIT No chief [...] by: Anne-Marie Middleton M.D. 07/01/2018 5:27 PM ING MACHINE OPERATOR documented in this encounter Plan of Treatment Not on filedocumented as of this encounter Visit Diagnoses Diagnosis Mass Kidney - Primary documented in this encounter
--- OUTSIDE RECORDS SUMMARY | 2022-02-09 08:09 | XMS_ITS | Encounter Summary ---
:1955 Author Organization [facility] Address [address] [place] [address] Care Team Providers Name Role Phone Unavailable Primary Care Provider Unavailable Encounter Details Date Type Department Care Team Description 06/24/2018 Clinical Communication Department of Urology Edy Silverio in Rizwana López M.D. [place] [address] [facility] [address] [place] [phone] Social History Tobacco Use Types Packs/Day Years [...] More than 4 times per year 08/15/2021 gnosticist services? 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 Willis calls. She wanted to let you know that she has only had anesthesia one time before, in 2004. She said it did not go very well. The outside records are scanned into her charted dated 01/12/2005. She would like you to review her records prior to her surgery here. She also wanted to let you know that on her questionnaire she marked that she has not had toxic exposure but wanted to pass along that she has. She said she has refinished two pieces of furniture yearsago but that was out in the open. She also has a couple other instances that she believes she had toxic exposure as well. She also wanted to pass along that she has a strong reaction to narcotics. Y LAUNDERING INVESTIGATOR documented in this encounter Plan of Treatment Not on filedocumented as of this encounter Visit Diagnoses Not on filedocumented in this encounter
--- OUTSIDE RECORDS SUMMARY | 2022-02-09 08:09 | XMS_ITS | Encounter Summary ---
:1955 Author Organization [facility] Address [address] [place] [address] Care Team Providers Name Role Phone Unavailable Primary Care Provider Unavailable Encounter Details Date Type Department Care Team Description 05/10/2018 Ancillary Procedure Department of Radiology Dakotah Charles [facility] in [facility] [place] [address] [facility] [address] [place] [phone] (Wo rk) Social History Tobacco Use Types [...] at Date Recorded Female 05/10/2018 8:56 AM SURVEILLANCE INVESTIGATOR documented as of this encounter Plan of Treatment Not on filedocumented as of this encounter Procedures Procedure Name Priority Date/Time Associated Comments Diagnosis INTERPRETATION OF RAD - Routine 05/10/2018 11:18 [facility] Resul ts for OUTSIDE CT ABDOMEN (most inpatients AM SURVEILLANCE INVESTIGATOR this procedure AND OR PELVIS and all are in the outpatients) results section. documented in this encounter Results Interpretation of Outside CT Abdomen and or Pelvis (05/10/2018 11:18 AM SURVEILLANCE INVESTIGATOR) Anatomical Region Laterality Modality Abdomen, Pelvis, Abdominal RST LOS, Abdominal ARZ LOS, N/A Computed Tomography Abdominal FLA LOS Specimen (Source) Anatomical Collection Method Collection Time Re ceived Time Location / / Volume Laterality 05/13/2018 9:28 AM SURVEILLANCE INVESTIGATOR Impressions 05/13/2018 9:38 AM SURVEILLANCE INVESTIGATOR IMPRESSION: ?? 1. RIGHT kidney 6.7 cm lobulated partial ly exophytic right renal mass, most consistent with primary renal neoplasm. 2. Low-attenuation liver lesions, should represent hemangiomas or cysts. Could be further characterized with ultrasound . 3. Indeterminant small right middle lobe pulmonary nodule. Narrative 05/13/2018 9:38 AM SURVEILLANCE INVESTIGATOR EXAM: ??INTERPRETATION OF OUTSIDE CT ABDOMEN AND [...] small right middle lobe pulmonary nodule. Jaskaran LOUISE CT PROCEDURES documented in this encounter Visit Diagnoses Diagnosis [facility] documented in this encounter
--- OUTSIDE RECORDS SUMMARY | 2022-02-09 08:09 | XMS_ITS | Encounter Summary ---
:1955 Author Organization [facility] Address [address] [place] [address] Care Team Providers Name Role Phone Unavailable Primary Care Provider Unavailable Reason for Visit Outpatient (Routine) - Closed Specialty Diagnoses / Procedures Referred By Contact Refer red To Contact General Surgery Diagnoses [facility] Benjamin Carlos M.D. [place] [address] [place] [address] Referral ID Status Reason Start Date Expiration Date Visits Requ ested Visits Authorized [id number] Closed 05/27/2018 05/27/2019 1 1 Encounter Details Date Type Department Care Team Description 07/01/2018 Comprehensive Visit Preoperative Benjamin Carlos M .D. Preanesthetic Medical Exam (Primary Dx); Evaluation Center in Tia Andrade M.D. [address] [place] [id number] [facility]; [place], [place] Cardiac Vascular Disease Scr eening [address] [place] [phone] Social History Tobacco Use Types Packs/Day Years [...] at Date Recorded Female 05/10/2018 8:56 AM CITY SUPERVISOR documented as of this encounter Last Filed Vital Signs Vital Sign Reading Time Taken Comments Blood Pressure 152/66 07/01/2018 12:39 PM CITY SUPERVISOR Pulse 67 07/01/2018 12:39 PM CITY SUPERVISOR Temperature 36.2 ??C (97.2 ??F) 07/01/2018 12:39 PM CITY SUPERVISOR Respiratory Rate - - Oxygen Saturation 99% 07/01/2018 12:39 PM CITY SUPERVISOR Inhaled Oxygen Concentration - - Weight 76 kg (167 lb 8.8 oz) 07/01/2018 12:39 PM CITY SUPERVISOR Height 160.5 cm (5' 3.19) 07/01/2018 12:39 PM CITY SUPERVISOR Body Mass Index 29.5 07/01/2018 12:39 PM CITY SUPERVISOR documented in this encounter H&P Notes Tia Andrade M.D. - 07/01/2018 12:45 PM CST Preoperative Medical Evaluation Patient Name: Karyna Willis Age: 63 y.o. Date of : 1955 Patient [address]: [address] [place] [id number] Primary Care Provider: No primary care provider on file. Referring Physician: Benjamin Carlos M.D. Pending Procedure: Right partial nephrectomy, open midline trans abdominal approach Surgeon: Jean Claude HISTORY OF PRESENT ILLNESS 63-year-old woman presents before partial nephrectomy scheduled for tomorrow. Comorbidities include GERD and hypertension. Patient achieves greater than 4 mets easily, she has had anesthetics in the past without complication. Of note she had a hysterectomy in December of 2004 under spinal anesthesia with sedation. She reports not liking sedation and is relieved this procedure will be a general anesthetic. She has some memory of sedation lightening during the hysterectomy and being frightened. She alsoreports that she is very sensitive to medications and typically requires low doses of opioids and sedatives. She says that she is more concerned about feeling out of control and sedated than she is about having pain. Past medical history: GERD, hypertension (on Lisinopril will hold tomorrow on day of surgery) Patient is consented for transfusion of blood products. Social history: Patient is a nonsmoker and does not regularly consume alcohol. The following portions of the patient's history were reviewed and updated as appropriate: allergies,current medications, outpatient medications, medical history, social history, surgical history and problem list. Preoperative assessment questions reviewed and completed Respiratory: Negative for dyspnea. Cardiovascular: Negative for chest pain, pressure or tightness. The following systems were negative: Constitutional, CV, Respiratory, Musculoskeletal, Neuro OBJECTIVE PHYSICAL EXAMINATION Airway (HEENT) Mallampati: II TM Distance: >3 FB Neck ROM: Full Mouth Opening: >3 cm Cardiovascular Rhythm: Regular Rate: Normal Cardiovascular Assessment: cardiovascular normal Functional Capacity: >4 METS Pulmonary Pulmonary Assessment: Clear and non labored Neurological Neurologic Assessment:??alert Dental Dental Assessment: dentition intact ASSESSMENT/PLAN Patient medically optimized for planned procedure: Yes Surgery Specific Risk Classification: Low Risk / Elevated Risk: Intermediate Risk Further Recommendations: hold Lisinopril day of surgery. Reviewed NPO and preoperative medication guidelines with patient. Additional co-morbidity information can be found in the overview section of the problem list. 63 y.o. male exceeding 4 METS here for preanesthetic medical examination prior to the planned procedure as listed above. Patient denies previous anesthesia related complications. Airway Hx (aka airway management): None in our record #1 [facility] #2 Preanesthetic Medical Exam #3 Cardiac Vascular Disease Screening Case discussed with Dr. Linder SUPERVISOR documented in this encounter Plan of Treatment Not on filedocumented as of this encounter Procedures Procedure Name Priority Date/Time Associated Diagnosis Comme nts ECG Routine 07/01/2018 1:46 PM [facility] Results for this CITY SUPERVISOR Preanesthetic Medical proced ure are in the Exam results section. Cardiac Vascular Disease Screening documented in this encounter Results ECG 12 Lead (07/01/2018 1:46 PM CITY SUPERVISOR) P athologist Signature Ventricular Rate 67 BPM MUSE ECG/Min WA Interval 128 ms MUSE QRSD Interval 100 ms MUSE QT Interval 414 ms MUSE QTC Interval 437 ms MUSE P [place] 10 degrees MUSE R [place] 25 degrees MUSE T Wave [place] 59 degrees MUSE Specimen Anatomical Collection Method Collection Time Receive d Time (Source) Location / / Volume Laterality 07/01/2018 1:46 PM 9 1:57 CITY SUPERVISOR PM CITY SUPERVISOR Impressions MUSE - 07/01/2018 1:57 PM CITY SUPERVISOR Normal sinus rhythm Incomplete right bundle branch block No previous ECGs available Narrative This result has an attachment that is no t available. Procedure Note Aguilar Chandra M.D., Ph.D. - 9 IMPRESSION: Normal sinus rhythm Incomplete right bundle branch block No previous ECGs available Tia Andrade M.D. ECG ORDERABLES Performing Organization Address City/State/ZIP Code Phon e Number MUSE MUSE NA documented in this encounter Visit Diagnoses Diagnosis Preanesthetic Medical Exam - Primary [facility] Cardiac Vascular Disease Screening documented in this encounter
--- OUTSIDE RECORDS SUMMARY | 2022-02-09 08:09 | XMS_ITS | Encounter Summary ---
:1955 Author Organization [facility] Address [address] [place] [address] Care Team Providers Name Role Phone Unavailable Primary Care Provider Unavailable Encounter Details Date Type Department Care Team Description 07/01/2018 Orders Only Department of Urology Jeovany Reyes [facility] Kidney (Primary in [place], , De Dx) [place] [address] [facility] [address] [place] [phone] Social History Tobacco Use Types Packs/Day Years [...] at Date Recorded Female 05/10/2018 8:56 AM EDITORIAL CLERK documented as of this encounter Plan of Treatment Not on filedocumented as of this encounter Results Miscellaneous Research, B (07/01/2018 12:03 PM EDITORIAL CLERK) athologist Signature Number of 5 07/01/2018 [facility] Specimens 12:23 PM EDITORIAL CLERK Specimen Anatomical Collection Method Collection Time Receive d Time (Source) Location / / Volume Laterality Varies (Blood, 07/01/2018 12:03 9 Venous) PM EDITORIAL CLERK 12:23 PM EDITORIAL CLERK Jeovany Reyes M.D. LAB RESEARCH NO RESULT CASANDRA QUINTEROS Performing Organization Address City/State/ZIP Code Phon e Number [facility] - [address] [place], [place] [address] [place] [address] [facility] [address] documented in this encounter Visit Diagnoses Diagnosis Mass Kidney - Primary documented in this encounter
--- OUTSIDE RECORDS SUMMARY | 2022-02-09 08:09 | XMS_ITS | Encounter Summary ---
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 [address] [facility] [place] [address] [address] [place] [address] [place] [address] (Wo rk) Social History Tobacco Use Types [...] More than 4 times per year 08/15/2021 oriental orthodox services? Do you belong to any [...] at Date Recorded Female 05/10/2018 8:56 AM CHIEF SALES OFFICER documented as of this encounter Last Filed Vital Signs Vital Sign Reading Time Taken Comments Blood Pressure 170/88 07/02/2018 2:25 PM CHIEF SALES OFFICER Pulse 84 07/02/2018 2:25 PM CHIEF SALES OFFICER Temperature 36.6 ??C (97.9 ??F) 07/02/2018 8:34 AM CHIEF SALES OFFICER Respiratory Rate 18 07/02/2018 2:25 PM CHIEF SALES OFFICER Oxygen Saturation 99% 07/02/2018 2:25 PM CHIEF SALES OFFICER Inhaled Oxygen Concentration - - Weight 73.4 kg (161 lb 13.1 oz) 07/02/2018 8:34 AM CHIEF SALES OFFICER Height 158 cm (5' 2.21) 07/02/2018 8:34 AM CHIEF SALES OFFICER Body Mass Index 29.76 07/02/2018 8:34 AM CHIEF SALES OFFICER documented in this encounter Discharge Summaries Obey [...] Case IDs Date Procedure Surgeon Location Status [id number] 07/02/18 Nephrectomy, Partial. Edy Silverio M.D. RST [...] were provided to the patient and caregiver(s). F SALES OFFICER documented in this encounter Discharge Instructions Discharge InstructionsDemetria Cruz - 07/03/2018 6:56 AM CST You were discharged from the [facility] Please identify this service name if you call with questions after hospitalization. F SALES OFFICER documented in this encounter Medications at Time [...] pending VIGNESH, anticipate 3-5 days Please call [facility] Urology service during the day and [phone] after hours with questions/concerns. F SALES OFFICER Benjamin Carlos M.D. - 07/04/2018 7:52 AM CST SUBJECTIVE [...] Dispo: Inpatient, anticipate 3-5 days. Please call [facility] Urology service during the day and [phone] after hours with questions/concerns. F SALES OFFICER Benjamin Carlos M.D. - 07/03/2018 8:06 AM CST SUBJECTIVE [...] Dispo: Inpatient, anticipate 3-5 days. Please call [facility] Urology service during the day and [phone] after hours with questions/concerns. F SALES OFFICER documented in this encounter H&P Notes Alexa Rashid M.D. - 07/02/2018 2:26 PM CST INTERVAL HISTORY AND PHYSICAL PRE-PROCEDURE UPDATE H&P reviewed. The patient was examined and there are no significant changes to the H&P. Alexa Rashid M.D. F SALES OFFICER Source Note - Mali Middleton M.D. - 07/01/2018 2:00 PM CHIEF SALES OFFICER SUBJECTIVE CHIEF COMPLAINT/REASON FOR VISIT No chief [...] by: Anne-Marie Middleton M.D. 07/01/2018 5:27 PM F SALES OFFICER documented in this encounter Nursing Notes Patrick Ortiz R.N. - 07/07/2018 2:50 PM CST Patient discharged home with after the LOLI was pulled out and the cipro 500mg oral administered per sx order. Vital signs were within limit, patient denied nausea, pain in the abdomen,LOLI site and refused pain medication. Escort took patient to the pharmacy. F SALES OFFICER Patrick Ortiz RTrae. - 07/07/2018 1:53 PM CST Goals: Clinical Goals for the Shift: Patients pain will be adequately managed throughout the shift. Identify possible barriers to meeting goals/advancing plan of care: None Stability of the patient: Moderately Stable - Low risk of patient condition declining or worsening End of Shift Summary: Patient denied pain at the end of the shift. F SALES OFFICER Deidra Talavera RTrae. - 07/06/2018 7:00 PM CST Goals: Clinical [...] on medication. Patient was transferred to room 6-148 and placed on isolation as a precaution, [...] but vital signs continue to be stable. tax processor notified about change in urine color. Will continue to monitor. F SALES OFFICER Deidra Talavera R.N. - 07/05/2018 6:40 PM CST Goals: [...] and sometimes just needs a little encouragement. Lianna Villa R.N. - 07/05/2018 7:22 AM CST Goals: [...] by: Jessica Dhillon R.N. 07/04/18 2:59 PM F SALES OFFICER Lianna Lambert R.N. - 07/03/2018 11:09 PM [...] shift and had 1/10 pain all shift. F SALES OFFICER Chio Sutton R.N. - 07/03/2018 10:21 AM CST Goals: [...] ADULT ??? Maintain a safe environment Progressing F SALES OFFICER Kristi Mo R.N. - 07/03/2018 5:03 AM [...] and emesis which was resolved with Zofran. F SALES OFFICER documented in this encounter OR Notes Op Note - Edy Silverio M.D. - 07/02/2018 3:11 PM CST FULL OP NOTE Procedure(s) (LRB): Nephrectomy, Partial. (Right) Surgeon(s) and Role: * Edy Silverio M.D. - Primary * Alexa Rashid M.D. - Other Biometrics Head * Ken Cobb M.D. Anesthesia Type: General [...] confirmed, the patient was brought to [facility] where she was prepped and draped in [...] collecting system defects were suture ligated with [id number] sutures using 4-0 Vicryl. Floseal was placed [...] Implant Name Type Inv. Item Serial No. Music Cataloguer Lot No. LRB No. Used Action CLP HRZN TI 6 CLP LG ORNG - SNA - [id number] Hardware e.g. pins/screws/rods CLP HRZN TI 6 CLP LG ORNG NA [employer] Right 1 Implanted CLP HRZN TI 6 CLP MD FABI - SNA - [id number] Hardware e.g. pins/screws/rods CLP HRZN TI 6 CLP MD FABI NA [employer] Right 1 Implanted CLP HRZN TI 6 CLP MD-LG GRN - SNA - [id number] Hardware e.g. pins/screws/rods CLP HRZN TI 6 CLP MD-LG GRN NA [employer] Right 1 Implanted CLP HRZN TI 6 CLP MD FABI - S0000 - [id number] Hardware e.g. pins/screws/rods CLP HRZN TI 6 CLP MDBLU 0000 [employer] [id number] Right 1 Implanted Alexa Rashid M.D. F SALES OFFICER documented in this encounter Miscellaneous Notes Hospital [...] NAD Lungs: non-labored Abdomen: soft, non-tender, non-distended. F SALES OFFICER documented in this encounter Plan of Treatment Scheduled Referrals Name Type Priority Associated Diagnoses Order S [facility] Urology office Outpatient Referral Routine Expect ed: visit (clinic) 10/02/2018 (Approximate), Expires: 07/05/2021 documented as of this encounter Procedures Procedure Name Priority Date/Time Associated Comments Diagnosis DX ABDOMEN PORTABLE RAD - Routine 07/07/2018 11:13 Res ults for this ANTERIOR POSTERIOR (most inpatients AM CHIEF SALES OFFICER proce dure are in 1 VIEW and all the results outpatients) section. ADULT OXYGEN Routine 07/06/2018 8:01 THERAPY AM CHIEF SALES OFFICER ADULT OXYGEN Routine 07/05/2018 8:01 THERAPY PM CHIEF SALES OFFICER REMOTE OXIMETRY Routine 07/05/2018 8:01 MONITORING CONT. PM CHIEF SALES OFFICER PULSE OXIMETRY, Routine 07/05/2018 8:01 CONTINUOUS PM CHIEF SALES OFFICER DX ABDOMEN 1 VIEW RAD - Routine 07/05/2018 10:52 Resul ts for this (most inpatients AM CHIEF SALES OFFICER procedure a re in and all the results outpatients) section. CBC WITHOUT Routine 07/05/2018 10:18 Results for this DIFFERENTIAL, B AM CHIEF SALES OFFICER procedure ar e in the results section. BASIC METABOLIC Routine 07/05/2018 10:18 Results for this PANEL, S/P AM CHIEF SALES OFFICER procedure are i n the results section. ADULT OXYGEN Routine 07/05/2018 8:02 THERAPY AM CHIEF SALES OFFICER ADULT OXYGEN Routine 07/04/2018 8:01 THERAPY PM CHIEF SALES OFFICER REMOTE OXIMETRY Routine 07/04/2018 8:01 MONITORING CONT. PM CHIEF SALES OFFICER PULSE OXIMETRY, Routine 07/04/2018 8:01 CONTINUOUS PM CHIEF SALES OFFICER ADULT OXYGEN Routine 07/04/2018 8:01 THERAPY AM CHIEF SALES OFFICER ADULT OXYGEN Routine 07/03/2018 8:01 THERAPY AM CHIEF SALES OFFICER REMOTE OXIMETRY Routine 07/03/2018 8:01 MONITORING CONT. AM CHIEF SALES OFFICER PULSE OXIMETRY, Routine 07/03/2018 8:01 CONTINUOUS AM CHIEF SALES OFFICER CBC WITHOUT Routine 07/03/2018 7:44 Results for this DIFFERENTIAL, B AM CHIEF SALES OFFICER procedure ar e in the results section. BASIC METABOLIC Routine 07/03/2018 7:44 Results f or this PANEL, S/P AM CHIEF SALES OFFICER procedure are i n the results section. ADULT OXYGEN Routine 07/02/2018 8:58 THERAPY PM CHIEF SALES OFFICER ADULT OXYGEN Routine 07/02/2018 8:58 THERAPY PM CHIEF SALES OFFICER PULSE OXIMETRY, Routine 07/02/2018 8:58 CONTINUOUS PM CHIEF SALES OFFICER PULSE OXIMETRY, Routine 07/02/2018 8:58 CONTINUOUS PM CHIEF SALES OFFICER PULSE OXIMETRY, Routine 07/02/2018 8:29 CONTINUOUS PM CHIEF SALES OFFICER PULSE OXIMETRY, Routine 07/02/2018 8:29 CONTINUOUS PM CHIEF SALES OFFICER REMOTE OXIMETRY Routine 07/02/2018 8:28 MONITORING CONT. PM CHIEF SALES OFFICER REMOTE OXIMETRY Routine 07/02/2018 8:28 MONITORING CONT. PM CHIEF SALES OFFICER REMOTE OXIMETRY Routine 07/02/2018 8:28 MONITORING CONT. PM CHIEF SALES OFFICER DX ABDOMEN 1 VIEW RAD - Routine 07/02/2018 6:59 Result s for this (most inpatients PM CHIEF SALES OFFICER procedure a re in and all the results outpatients) section. ADULT OXYGEN Routine 07/02/2018 6:53 THERAPY PM CHIEF SALES OFFICER ADULT OXYGEN Routine 07/02/2018 6:53 THERAPY PM CHIEF SALES OFFICER SURGICAL PATHOLOGY, Routine 07/02/2018 5:22 Resul ts for this [facility] PM CHIEF SALES OFFICER procedure are i n the results section. NEPHRECTOMY - 07/02/2018 2:12 renal mass. PARTIAL PM CHIEF SALES OFFICER documented in this encounter Results CT Abdomen [...] Urinalysis with Microscopic (10/09/2018 10:55 AM CDT) [facility] Method Time Signature Source Midstream 10/09/2018 [facility] 10:55 AM CDT [facility] Appearance Normal Normal 10/09/2018 [facility] 11:30 AM CDT [facility] Osmolality, U 184 150 - 1150 10/09/2018 [facility] mOsm/kg 12:10 PM CDT [facility] pH, U 6.9 4.5 - 8.0 10/09/2018 [facility] 12:10 PM T [facility] Comment: ----ADDITIONAL INFORMATION---- This test was developed and its performa nce characteristics determined by [facility] in a manner co nsistent with CLIA requirements. This test has not bee n cleared or approved by the U.S. Food and Drug Admin istration. Glucose <2 0 - 15 mg/dL 10/09/2018 11:30 AM CDT [facility] S Protein, U <4 <26 mg/dL 10/09/2018 11:30 AM CDT [facility] Comment: ----ADDITIONAL INFORMATION---- On 11/14/2016 the total protein assay me thod changed resulting in approximately a 15% increase in prote in values. Protein/Osmolality <0.22 <0.42 Ratio 10/09/2018 12:10 PM [facility] CDT [facility] Comment: ----ADDITIONAL INFORMATION---- On 11/14/2016 the total protein assay me thod changed resulting in approximately a 15% increase in prote in values. Predicted 24 Hr <167 mg/24 h 10/09/2018 12:10 PM [facility] Protein CDT [facility]ATORIES - [facility] S Predicted Range <678 mg/24 h 10/09/2018 12:10 PM [facility] CDT [facility] - [facility] Hemoglobin, QL Negative Negative 10/09/2018 1:08 PM [facility] CDT [facility] - [facility] Specimen Anatomical Collection Method Collection Time Receive d Time (Source) Location / / Volume Laterality Urine (Urine, 10/09/2018 10:55 10/09/2018 Midstream) AM CDT 10:55 AM CDT Obey Brock M.D. LAB URINE ORDERABLES Performing Organization Address City/State/ZIP Code Phon e Number [facility]IES - [address] [place], [place] [address] [facility] DX Chest AP or PA and Lateral [...] Brock M.D. IMG DIAGNOSTIC IMAGING PROCE VÍCTOR CBC without Differential (10/09/2018 9:04 AM CDT) [facility] Method Time Signature Hemoglobin 12.2 11.6 - 10/09/2018 [facility] 15.0 g/dL 9:34 AM CDT [facility]ATOR[facility] - [facility] Hematocrit 39.7 35.5 - 10/09/2018 [facility] 44.9 % 9:34 AM CDT [facility] - [facility] Erythrocytes 4.89 3.92 - 10/09/2018 [facility] 5.13 9:34 AM CDT LABORATORIES - x10(12)/L [facility] MCV 81.2 78.2 - 10/09/2018 [facility] 97.9 fL 9:34 AM CDT [facility] RBC Distrib Width 15.9 12.2 - 10/09/2018 [facility] 16.1 % 9:34 AM CDT [facility] Platelet Count 259 157 - 371 10/09/2018 [facility] x10(9)/L 9:34 AM CDT [facility] Leukocytes 5.6 3.4 - 9.6 10/09/2018 [facility] x10(9)/L 9:34 AM CDT [facility] - [facility] Specimen Anatomical Collection Method Collection Time Receive d Time (Source) Location / / Volume Laterality Blood (Blood, 10/09/2018 9:04 AM 10/10/19 19 9:25 Venous) CDT AM CDT Obey Brock M.D. LAB BLOOD ADD-ON Performing Organization Address City/State/ZIP Code Phon e Number [facility]IES - [address] [place], [place] [address] [facility] (ABNORMAL) BMP (Basic Metabolic Panel) (10/09/2018 9:04 AM CDT) [facility] Method Time Signature Potassium, S 4.3 3.6 - 5.2 10/09/2018 [facility] mmol/L 10:06 AM CDT [facility] - [facility] Sodium, S 145 135 - 145 10/09/2018 [facility] mmol/L 10:06 AM CDT LABORATORIES [facility] Chloride, S 105 98 - 107 10/09/2018 [facility] mmol/L 10:06 AM CDT [facility] - [facility] Bicarbonate, S 26 22 - 29 10/09/2018 [facility] mmol/L 10:06 AM CDT [facility] - [facility] Anion Gap 14 7 - 15 10/09/2018 [facility] 10:06 AM CDT [facility] - [facility] BUN (Blood 19 6 - 21 10/09/2018 [facility] Urea mg/dL 10:06 AM CDT LABORATORIES - Nitrogen), S [facility] Creatinine 1.21 (H) 0.59 - 10/09/2018 [facility] 1.04 10:06 AM CDT LABORATORIES - mg/dL [facility] eGFR-Non 47 (L) >=60 10/09/2018 [facility] Black/ mL/min/BS 10:06 AM CDT LABORATORIES - [place] [facility] Comment: ----ADDITIONAL INFORMATION---- Estimated GFR calculated using the 2009 CKD_EPI creatinine equation. eGFR-Black/ 54 (L) >=60 mL/min/BSA 10/09/2018 10:0 6 [facility] [place] CDT [facility] - [facility] Comment: ----ADDITIONAL INFORMATION---- Estimated GFR calculated using the 2009 CKD_EPI creatinine equation. Calcium, Total, S 9.7 8.8 - 10.2 mg/dL 10/09/2018 10:0 6 AM [facility] CDT LABORATORIES [facility] S Glucose, S 75 70 - 140 mg/dL 10/09/2018 10:06 AM [facility] CDT LABORATORIES - [facility] S Specimen Anatomical Collection Method Collection Time Receive d Time (Source) Location / / Volume Laterality Blood (Blood, 10/09/2018 9:04 AM 10/10/19 19 9:25 Venous) CDT AM CDT Obey Brock M.D. LAB BLOOD ADD-ON Performing Organization Address City/State/ZIP Code Phon e Number [facility]IES - [address] [place], [place] [address] [facility] DX Abdomen Portable Anterior Posterior 1 View (07/07/2018 11:13 AM CHIEF SALES OFFICER) Anatomical Region Laterality Modality Abdomen, Abdominal RST LOS, Abdominal ARZ LOS, N/A Digital Radiography Abdominal FLA LOS Specimen (Source) Anatomical Collection Method Collection Time Re ceived Time Location / / Volume Laterality 07/07/2018 11:19 AM CHIEF SALES OFFICER Impressions 07/07/2018 11:22 AM CHIEF SALES OFFICER IMPRESSION: ??The LOLI drain projects over the right side of the abdomen, with no significant change in position compared to 07/05/2018. Several dilated loops of small bowel measuring up to about 4cm in diameter. Relatively little colon gas identified. Finding is concerning for sm all bowel obstruction. Degenerative change both hips. Narrative 07/07/2018 11:22 AM CHIEF SALES OFFICER EXAM: ??DX ABDOMEN PORTABLE ANTERIOR POSTERIOR 1 [...] Obey Brock M.D. IMG DIAGNOSTIC IMAGING PROCE DUR DX Abdomen 1 View (07/05/2018 10:52 AM CHIEF SALES OFFICER) Anatomical Region Laterality Modality Abdomen, Abdominal RST LOS, Abdominal ARZ LOS, N/A Computed Radiography Abdominal FLA LOS Specimen (Source) Anatomical Collection Method Collection Time Re ceived Time Location / / Volume Laterality 07/05/2018 10:54 AM CHIEF SALES OFFICER Impressions 07/05/2018 10:55 AM CHIEF SALES OFFICER IMPRESSION: ??Mild gaseous distention of the colon with relative paucity of small bowel gas. Postoperative changes abdomen pelvis. Narrative 07/05/2018 10:55 AM CHIEF SALES OFFICER EXAM: ??DX ABDOMEN 1 VIEW Procedure Note Marc Harris M.D. - 07/05/2018For matting of this note might be different from the original. EXAM: DX ABDOMEN 1 VIEW IMPRESSION: Mild gaseous distention of t he colon with relative paucity of small bowel gas. Postoperative changes abdomen pelvis. Benjamin Carlos M.D. IMG DIAGNOSTIC IMAGING PROCE DURES (ABNORMAL) CBC without Differential (07/05/2018 10:18 AM CHIEF SALES OFFICER) [facility] gist Method Time Signature Hemoglobin 11.8 11.6 - 07/05/2018 [facility] 15.0 g/dL 10:44 AM CHIEF SALES OFFICER [facility]ATORIES - [facility] Hematocrit 36.1 35.5 - 07/05/2018 [facility] 44.9 % 10:44 AM CHIEF SALES OFFICER [facility]IES - [facility] Erythrocytes 4.32 3.92 - 07/05/2018 [facility] 5.13 10:44 AM CHIEF SALES OFFICER LABORATORIES - x10(12)/L [facility] MCV 83.6 78.2 - 07/05/2018 [facility] 97.9 fL 10:44 AM CHIEF SALES OFFICER [facility] - [facility] RBC Distrib 14.8 12.2 - 07/05/2018 [facility] Width 16.1 % 10:44 AM CHIEF SALES OFFICER [facility] - [facility] Platelet Count 201 157 - 371 07/05/2018 [facility] x10(9)/L 10:44 AM CHIEF SALES OFFICER [facility] - [facility] Leukocytes 11.2 (H) 3.4 - 9.6 07/05/2018 [facility] x10(9)/L 10:44 AM CHIEF SALES OFFICER LABORATORIES [facility] Specimen Anatomical Collection Method Collection Time Receive d Time (Source) Location / / Volume Laterality Blood (Blood, 07/05/2018 10:18 07/05/2018 Venous) AM CHIEF SALES OFFICER 10:32 AM CHIEF SALES OFFICER Benjamin Carlos M.D. LAB BLOOD ADD-ON Performing Organization Address City/State/ZIP Code Phon e Number [facility]IES - [address] [id number] [facility] (ABNORMAL) BMP (Basic Metabolic Panel) (07/05/2018 10:18 AM CHIEF SALES OFFICER) [facility] gist Method Time Signature Potassium, S 3.7 3.6 - 5.2 07/05/2018 [facility] mmol/L 11:11 AM CHIEF SALES OFFICER [facility] - [facility] Sodium, S 139 135 - 145 07/05/2018 [facility] mmol/L 11:11 AM CHIEF SALES OFFICER [facility] - [facility] Chloride, S 100 98 - 107 07/05/2018 [facility] mmol/L 11:11 AM CHIEF SALES OFFICER [facility] - [facility] Bicarbonate, S 26 22 - 29 07/05/2018 [facility] mmol/L 11:11 AM CHIEF SALES OFFICER [facility]IES [facility] Anion Gap 13 7 - 15 07/05/2018 [facility] 11:11 AM CHIEF SALES OFFICER [facility]IES [facility] BUN (Blood 13 6 - 21 07/05/2018 [facility] Urea mg/dL 11:11 AM CHIEF SALES OFFICER LABORATORIES - Nitrogen), S [facility] Creatinine 1.11 (H) 0.59 - 07/05/2018 [facility] 1.04 11:11 AM CHIEF SALES OFFICER LABORATORIES - mg/dL [facility] eGFR-Non 52 (L) >=60 07/05/2018 [facility] Black/ mL/min/BS 11:11 AM CHIEF SALES OFFICER LABORATORIES - [place] [facility] Comment: ----ADDITIONAL INFORMATION---- Estimated GFR calculated using the 2009 CKD_EPI creatinine equation. eGFR-Black/ 60 >=60 mL/min/BSA 07/05/2018 11:1 1 [facility] [place] AM CHIEF SALES OFFICER [facility]IES [facility] Comment: ----ADDITIONAL INFORMATION---- Estimated GFR calculated using the 2009 CKD_EPI creatinine equation. Calcium, Total, S 8.7 (L) 8.8 - 10.2 07/05/2018 11:11 AM [facility] mg/dL CHIEF SALES OFFICER LABORATORIES [facility] S Glucose, S 123 70 - 140 mg/dL 07/05/2018 11:11 AM [facility] CHIEF SALES OFFICER LABORATORIES [facility] S Specimen Anatomical Collection Method Collection Time Receive d Time (Source) Location / / Volume Laterality Blood (Blood, 07/05/2018 10:18 07/05/2018 Venous) AM CHIEF SALES OFFICER 10:32 AM CHIEF SALES OFFICER Benjamin Carlos M.D. LAB BLOOD ADD-ON Performing Organization Address City/State/ZIP Code Phon e Number [facility] - [address] (ABNORMAL) CBC without Differential (07/03/2018 7:44 AM CHIEF SALES OFFICER) [facility] Method Time Signature Hemoglobin 11.0 (L) 11.6 - 07/03/2018 [facility] 15.0 g/dL 8:10 AM CHIEF SALES OFFICER LAB[facility]IES [facility] Hematocrit 33.8 (L) 35.5 - 07/03/2018 [facility] 44.9 % 8:10 AM CHIEF SALES OFFICER LAB[facility]IES [facility] Erythrocytes 3.98 3.92 - 07/03/2018 [facility] 5.13 8:10 AM CHIEF SALES OFFICER LABORATORIES - x10(12)/L [facility] MCV 84.9 78.2 - 07/03/2018 [facility] 97.9 fL 8:10 AM CHIEF SALES OFFICER LAB[facility]IES [facility] RBC Distrib 14.6 12.2 - 07/03/2018 [facility] Width 16.1 % 8:10 AM CHIEF SALES OFFICER [facility] Platelet Count 157 157 - 371 07/03/2018 [facility] x10(9)/L 8:10 AM CHIEF SALES OFFICER LAB[facility]IES - [facility] Leukocytes 10.3 (H) 3.4 - 9.6 07/03/2018 [facility] x10(9)/L 8:10 AM CHIEF SALES OFFICER [facility]IES - [facility] Specimen Anatomical Collection Method Collection Time Receive d Time (Source) Location / / Volume Laterality Blood (Blood, 07/03/2018 7:44 AM 07/03/19 19 7:59 Venous) CHIEF SALES OFFICER AM CHIEF SALES OFFICER Benjamin Carlos M.D. LAB BLOOD ADD-ON Performing Organization Address City/State/ZIP Code Phon e Number [facility] - [address] [place], [place] [address] [facility] (ABNORMAL) BMP (Basic Metabolic Panel) (07/03/2018 7:44 AM CHIEF SALES OFFICER) [facility] Method Time Signature Potassium, S 4.8 3.6 - 5.2 07/03/2018 [facility] mmol/L 8:49 AM CHIEF SALES OFFICER LAB[facility]IES - [facility] Sodium, S 143 135 - 145 07/03/2018 [facility] mmol/L 8:49 AM CHIEF SALES OFFICER [facility] - [facility] Chloride, S 108 (H) 98 - 107 07/03/2018 [facility] mmol/L 8:49 AM CHIEF SALES OFFICER [facility] - [facility] Bicarbonate, S 22 22 - 29 07/03/2018 [facility] mmol/L 8:49 AM CHIEF SALES OFFICER [facility] - [facility] Anion Gap 13 7 - 15 07/03/2018 [facility] 8:49 AM CHIEF SALES OFFICER [facility] - [facility] BUN (Blood 19 6 - 21 07/03/2018 [facility] Urea mg/dL 8:49 AM CHIEF SALES OFFICER LABORATORIES - Nitrogen), S [facility] Creatinine 1.14 (H) 0.59 - 07/03/2018 [facility] 1.04 8:49 AM CHIEF SALES OFFICER LABORATORIES - mg/dL [facility] eGFR-Non 51 (L) >=60 07/03/2018 [facility] Black/ mL/min/BS 8:49 AM CHIEF SALES OFFICER LABORATORIES - [place] [facility] Comment: ----ADDITIONAL INFORMATION---- Estimated GFR calculated using the 2009 CKD_EPI creatinine equation. eGFR-Black/ 58 (L) >=60 mL/min/BSA 07/03/2018 8:49 [facility] [place] AM CHIEF SALES OFFICER LABORATORIES - [facility] Comment: ----ADDITIONAL INFORMATION---- Estimated GFR calculated using the 2009 CKD_EPI creatinine equation. Calcium, Total, S 8.5 (L) 8.8 - 10.2 07/03/2018 8:49 AM [facility] mg/dL CHIEF SALES OFFICER [facility] - [facility] Glucose, S 154 (H) 70 - 140 mg/dL 07/03/2018 8:49 AM [facility] CHIEF SALES OFFICER [facility] - [facility] Specimen Anatomical Collection Method Collection Time Receive d Time (Source) Location / / Volume Laterality Blood (Blood, 07/03/2018 7:44 AM 07/03/19 19 7:59 Venous) CHIEF SALES OFFICER AM CHIEF SALES OFFICER Benjamin Carlos M.D. LAB BLOOD ADD-ON Performing Organization Address City/State/ZIP Code Phon e Number [facility]ATORIES - [address] [place] [phone] [facility] DX Abdomen 1 View (07/02/2018 6:59 PM CHIEF SALES OFFICER) Anatomical Region Laterality Modality Abdomen, Abdominal RST LOS, Abdominal ARZ LOS, N/A Digital Radiography Abdominal FLA LOS Specimen (Source) Anatomical Collection Method Collection Time Re ceived Time Location / / Volume Laterality 07/02/2018 7:33 PM CHIEF SALES OFFICER Impressions 07/02/2018 7:43 PM CHIEF SALES OFFICER IMPRESSION: ??Negative for by PO purposes. Surgical clips right lower quadrant. Surgical drain right lower quadrant. Exp ected postoperative retroperitoneal gas. Nonobstructive bowel gas pattern. Narrative 07/02/2018 7:43 PM CHIEF SALES OFFICER EXAM: ??DX ABDOMEN 1 VIEW Procedure Note Zechariah Acevedo M.B.B.S., M.D. - 04/2019 EXAM: DX ABDOMEN 1 VIEW IMPRESSION: Negative for by PO purposes. Surgical clips right lower quadrant. Surgical drain right lower quadrant. Exp ected postoperative retroperitoneal gas. Nonobstructive bowel gas pattern. Edy Silverio M.D. IMG DIAGNOSTIC IMAGING [facility] Surgical Pathology, Frozen Lab (07/02/2018 5:22 PM CHIEF SALES OFFICER) Component Value Ref Test Analysis Performed At [facility] Range Method Time Signature Gross Description A. ??Received fresh labeled right renal mass is a 7.5 x 07/03/2018 [facility] 5.5 x 4.3 cm partial nephrectomy specimen. ??There is a 7. 5 1:34 PM LABORATORIES - x 4.5 x 4.1 cm white-yellow solid mass, located 0.1 cm fro [facility] the inked resection margin. ??The tumor does not extend into [place] the perirenal fat. ??Counter Stitcher tissue submitted for frozen and permanent sections. ??Non-neoplastic parenchyma is collected for potential future ancillary studies. Grossed by DPL. Participated in Darius Esquivel M.D.-Pathology Resident 07/03/2018 [facility] the Darius Lynn M.D.-Pathology Fellow 1:34 PM LABORATORIES - Interpretation [facility] Report Francis Patel M.D. [phone] [facility] electronically I verify that I have examined all relevant slides/ma terials 1:34 PM LABORATORIES - signed by for the specimen(s) and rendered or confirmed the diagnosi s. [facility] Seen in consultation with: LUZ MARINA Talavera M.D. [phone] 07/03/2018 [facility] 1:34 PM LABORATORIES - [facility] Frozen A. ??Kidney, right renal mass, partial nephrectomy: ??Lizzie l 07/03/2018 [facility] Intraoperative cell carcinoma. ??Margins negative. 1:34 PM LABORATORIES - Report HOLD OVER to classify. [facility] Frozen section histologic interpretation performed by: [place] Francis Patel M.D. [phone] Block Summary A Right renal mass 07/03/2018 [facility] A1 Mass to margin 1:34 PM LABORATORIES - A2 Mass to fat [facility] Interpretation FINAL DIAGNOSIS 07/03/2018 [facility] TINO A. 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 5 [facility] x 4.1 cm). ??The surgical margins are negative for tumor. [place] See synoptic report. SYNOPTIC REPORT Procedure: Partial [...] Laterality Tissue (Kidney, 07/02/2018 5:22 PM Right) CHIEF SALES OFFICER Narrative This result has an attachment that is no t available. Edy Silverio M.D. LAB SURG PATH ORDERABLES Performing Organization Address City/State/[facility] Code Phon e Number [facility]IES - [address] [place], [place] [address] [facility] documented in this encounter Visit Diagnoses Not on filedocumented in this encounter Admitting Diagnoses Diagnosis Mass Kidney documented in this encounter Administered Medications Inactive Administered Medications - up to 3 most recent administrations Medication Order MAR Action Action Date Dose Rate Site acetaminophen tablet 500 mg Given 07/04/2018 6:43 PM CHIEF SALES OFFICER 500 mg (TYLENOL) 500 mg, oral, Every 6 hours PRN, moderate pain or score 4-6 of 10, Starting on Aline 07/04/18 at 1012 Given 07/04/2018 10:58 AM CHIEF SALES OFFICER 500 mg alum-mag hydroxide-simeth 200-200-20 mg/5 mL Given 9 6:43 PM CHIEF SALES OFFICER 30 mL suspension 30 mL (MAALOX) 30 mL, oral, 4 times daily PRN, indigestion, Starting on Tu07/02/18 at 2058 bisacodyl suppository 10 mg (DULCOLAX) 10 mg, rectal, Daily PRN, constipation, Starting on Sun07/05/18 at 1400, Ordered sequence of administration: polyethylene glycol, then bisacodyl until BM achieved. bupivacaine liposome (PF) 20 mL, bupivacaine Given 9 6:12 PM CHIEF SALES OFFICER 50 mL 30 mL 50 mL injection As needed, Starting on Sun07/02/18 at 1808, Intra-Op ciprofloxacin tablet 500 mg (CIPRO) 500 mg, [...] drug clearan ce factors., Indications: Prophylaxis, surgical famotidine tablet 20 mg (PEPCID) Given 07/07/2018 10:27 AM CHIEF SALES OFFICER 20 mg 20 mg, oral, 2 times daily, First dose on Sun07/02/18 at 2100, famotidine 20 mg oral twice daily was interchanged for cimetidine 300 mg oral 4 times daily, Drug Monitoring Program: Pharmacist to adjust medication dosing based on indication and drug clearance factors. Given 07/06/2018 8:58 PM CHIEF SALES OFFICER 20 mg Given 07/06/2018 8:52 AM CHIEF SALES OFFICER 20 mg heparin (porcine) Given 07/07/2018 4:49 AM CHIEF SALES OFFICER 5,000 Units Right Upper Arm injection 5,000 Units (Back) 5,000 Units, subcutaneous, Every 8 hours scheduled, First dose on Sun07/03/18 at 0400 Given 07/06/2018 9:00 PM CHIEF SALES OFFICER 5,000 Units Left Upper Arm (Back) Given 07/06/2018 2:56 PM CHIEF SALES OFFICER 5,000 Units Right Upper Arm (Back) lisinopril tablet 5 mg (PRINIVIL,ZESTRIL ) Given 07/07/2018 10:27 AM CHIEF SALES OFFICER 5 mg 5 mg, oral, Every morning, First dose on Sun07/05/18 at 0900 Given 07/06/2018 8:52 AM CHIEF SALES OFFICER 5 mg NaCl 0.9 % bolus 500 mL New Bag 07/03/2018 6:11 AM CHIEF SALES OFFICER 500 mL 500 mL/hr 500 mL, intravenous, at 500 mL/hr, Administer over 1 Hours, As needed, Urinary output less than 30 mL/hour x 2 consecutive hours, Starting on Sun07/02/18 at 2058, May repeat x 1 within 48 hours. NaCl 0.9% infusion Rate/Dose Verify 07/03/2018 10:20 AM 100 mL/hr 100 mL/hr 100 mL/hr, intravenous, CHIEF SALES OFFICER Continuous, Starting on Sun07/02/18 at 2100, Continue IV fluids from operating room at 100 ml/hour until bag finished, then begin as ordered. Discontinue once PO intake >600 ml in 24 hours New Bag 07/02/2018 11:09 PM CHIEF SALES OFFICER 100 mL/hr 100 mL/hr ondansetron (PF) injection 4 mg (ZOFRAN) 4 [...] are ineffective, Starting on Sun07/04/18 at 0751 polysaccharide spheres particles Given 07/02/2018 5:37 PM CHIEF SALES OFFICER 1 application Other (FLOR) As needed, Starting on Sun07/02/18 at 1737, Intra-Op scopolamine base 1 mg over 3 days 1 patc h (TRANSDERM SCOP) 1 patch, transdermal, Administer over 72 Hours, Every 72 hours PRN, nausea, Starting on Sun07/03/18 at 0805, For 2 doses sennosides-docusate sodium 8.6-50 mg per Given 07/06/2018 8:52 A M CHIEF SALES OFFICER 1 tablet tablet 1 tablet (SENOKOT-S) 1 tablet, oral, 2 times daily, First dose on Sun07/02/18 at 2100, Do not give if patient has diarrhea. Given 07/05/2018 8:45 PM CHIEF SALES OFFICER 1 tablet Given 07/05/2018 8:09 AM CHIEF SALES OFFICER 1 tablet sodium chloride 5 % ophthalmic solution 1 drop (SHY 128) 1 drop, both eyes, 4 times daily PRN, ir ritation, Starting on Sun07/02/18 at 2104 documented in this encounter Active and Recently Administered Medications Times are shown in CHIEF SALES OFFICER. Scheduled Medication Order 07/05/2018 07/06/2018 07/07/2018 ciprofloxacin tablet 500 mg (CIPRO) 500 mg, oral, 2 times daily before break fast and dinner, First dose on Sun07/07/18 at 1600, Take 2 hours before or 6 hours after antacids containing magnesium or aluminum, sucralfate, didanosine, polyme ashley phosphate binders, or products conta ining calcium, iron, or zinc., Drug Monitoring Program: Pharmacist to adjust medication dosing based on indication and drug clearance factors., Indications: Prophylaxis, surgical famotidine tablet 20 mg (PEPCID) 0809 (Given - Provide r: Bonifacio Vargas)2044 (Given - Provider: Ciara Willard R.N.) 0852 (Given - Provider: Deidra Talavera R.N.)2057 (Given - Provider: Sunitha Heard RJenniferNJennifer) 1027 (Given - Provider: Patrick Ortiz RJuliann) 20 mg, oral, 2 times daily, First [...] Lambert R.N.)1458 (Given - Provider: Deidra Talavera R.N.)2044 (Given - Provider: Ciara Willard R.N.) 0613 (Given - Provider: Ciara lainez RJenniferNJennifer)1456 (Given - Provider: Deidra Talavera R.N.)2100 (Given - Provider: Sunitha Heard R.N.) 0449 (Given - Provider: Sunitha staton R.N. - Comment: pt requested)0600 (Canceled Entry - Provider: Sunitha Heard R.N. - Comment: given early d/t pt request)1400 [...] (XYLOCAINE) 1130 (Due) 30 mL, infiltration, Once, Sun07/07/18 at 1130, For 1 dose lisinopril tablet 5 mg (PRINIVIL,ZESTRIL) 0900 (Cancel ed Entry - Provider: Lianna Lambert R.N. - Comment: Uro oncall ok'd early lisinopril because of high SBP. Needs one time dose because order doesnt start until 0900 today.) 0852 (Given - Provider: Deidra Talavera R.N.) 1027 (Given - Provider: Patrick Ortiz RJuliann) 5 mg, oral, Every morning, First dose on Sun07/05/18 at 0900 lisinopril tablet 5 mg (PRINIVIL,ZESTRIL) (COMPLETED) 0649 (Given - Provider: Lianna Lambert R.N.) 5 mg, oral, Once, On Sun07/05/18 at 0700, For 1 dose sennosides-docusate sodium 8.6-50 mg per tablet 1 tabl et (SENOKOT-S) 0809 (Given - Provider: Bonifacio Vargas)2045 (Given - Provider: Ciara Willard R.N.) 0852 (Given - Provider: Deidra Talavera R.N.)2057 (Not Given - Provider: Sunitha Heard R.N. - Reason: Patient/family refused) 1029 (Not Given - Provider: Patrick Ortiz R.N. - Reason: Patient/family refused - Comment: Loose stools per patient.) 1 tablet, oral, 2 times daily, First dos e on Sun07/02/18 at 2100, Do not give if patient has diarrhea. Continuous Medication Order 07/05/2018 07/06/2018 07/07/2018 NaCl 0.9% infusion 1030 (Stopped - Provider: Patrick Ortiz R.N.) 100 mL/hr, intravenous, Continuous, Star ting on Sun07/02/18 at 2100, Continue IV fluids from operating room at 100 ml/hour until bag finished, then begin as ordered. Discontinue once PO intake >600 ml in 24 hours PRN Medication Order 07/05/2018 07/06/2018 07/07/2018 acetaminophen tablet 500 mg (TYLENOL) 1028 (Not Given - Provider: Patrick Ortiz R.N. - Reason: Patient/family refused) 500 mg, oral, [...] As needed, sore throat, Starting Sun07/02/18 at 205 bisacodyl suppository 10 mg (DULCOLAX) 10 mg, rectal, Daily PRN, constipation, Starting on Sun07/05/18 at 1400, Ordered sequence of administration: polyethylene glycol, then bisacodyl until BM achieved. NaCl 0.9 % bolus 500 mL 500 mL, intravenous, at 500 mL/hr, Admin ister over 1 Hours, As needed, Urinary output less than 30 mL/hour x 2 consecutive hours, Starting on Sun07/02/18 at 205, May repeat x 1 within 48 hours. naloxone injection 0.2 mg (NARCAN) 0.2 mg, intravenous, As needed, respirat ory depression, Starting Sun07/02/18 at 205, For respiratory rate less than 8 breaths [...] daily PRN, bladder spasms, Starting 07/02 at 205 oxyCODONE IR tablet 2.5 mg (ROXICODONE) 2.5 [...]
--- OUTSIDE RECORDS SUMMARY | 2022-02-09 08:09 | XMS_ITS | Encounter Summary ---
:1955 Author Organization [facility] Address [address] [place] [id number] Care Team Providers Name Role Phone Unavailable Primary Care Provider Unavailable Reason for Visit Outpatient (Routine) - Closed Specialty Diagnoses / Procedures Referred By Contact Refer red To Contact Research Diagnoses Mass Kidney Jeovany Reyes M.D. [facility] [address] [place] [address] [phone] Referral ID Status Reason Start Date Expiration Date Visits Requ ested Visits Authorized [id number] Closed 06/28/2018 06/28/2019 1 1 Encounter Details Date Type Department Care Team Description 07/01/2018 Clinical Support Department of Urology in Jeovany Hudson M.D. [address] [place] [phone] [facility] [place], [place], CCRP [address] [place] [phone] Social History Tobacco Use Types Packs/Day [...] More than 4 times per year 08/15/2021 holiness services? Do you belong to any clubs [...] at Date Recorded Female 05/10/2018 8:56 AM EXTRUDER documented as of this encounter Plan of Treatment Not on filedocumented as of this encounter Visit Diagnoses Diagnosis Mass Kidney documented in this encounter
--- OUTSIDE RECORDS SUMMARY | 2022-02-09 08:09 | XMS_ITS | Encounter Summary ---
:[address] [facility] Address [address] [place] [address] Care Team Providers Name Role Phone Unavailable Primary Care Provider Unavailable Reason for Referral Outpatient (Routine) - Closed Specialty Diagnoses / Procedures Referred By Contact Refer red To Contact General Surgery Diagnoses [facility] Benjamin Carlos M.D. [address] [phone] Referral ID Status Reason Start Date Expiration Date Visits Requ ested Visits Authorized [id number] Closed 05/27/2018 05/27/2019 1 1 N SUPERVISOR Outpatient (Routine) - Closed Specialty Diagnoses / Procedures Referred By Contact Refer red To Contact Urology Benjamin Carlos M.D. [address] [phone] Referral ID Status Reason Start Date Expiration Date Visits Requ ested Visits Authorized [id number] Closed 05/27/2018 05/27/2019 1 1 N SUPERVISOR Reason for Visit Appointment Request (Routine) - Closed Specialty Diagnoses / Procedures Referred By Contact Elizabeth farris To Contact Urology Referral ID Status Reason Start Date Expiration Date Visits Requ ested Visits Authorized [id number] Closed 2018 2019 1 1 Encounter Details Date Type Department Care Team Description 05/27/2018 Comprehensive Visit Department of [facility] in Edy Wagoner M.D. (Primary Dx) [place], [address] [place] [address] [place] [phone] [place], [place] [phone] (Work) [phone] Social History Tobacco Use Types Packs/Day Years [...] or slept in a intermediate (including now)? Sex Assigned at Date Recorded Female 05/10/2018 8:56 AM CABIN SUPERVISOR documented as of this encounter Consult Notes Hermelindo Estrada, ROSEMARIE, C.N.P. - 05/27/2018 9:00 AM CST REFERRAL SOURCE Dr. Jaskaran Charles HISTORY OF PRESENT ILLNESS Mrs. Willis is a pleasant 63 y.o. female who was seen in a local emergency department with complaintsof irregular heartbeat, fever and shortness of breath. Patient had a CT scan of the chest on May 05, 2018 that showed an incidentally found 6.3 cm right renal mass and a 7 mm right middle lobe pulm onary nodule. She was informed her symptoms were likely viral in nature. A CT scan of the abdomen and pelvis with contrast was obtained on May 06, 2018 revealing a solid, lobular 6.3 cm right renal mass, multiple indeterminate liver lesions (largest measuring 12.7 mm in the medial segment of the left lobe) and a fat containing umbilical hernia. Mrs. Willis was seen by Dr. Charles on May 10, 2018. Interpretation of her outside CT scan at [place] revealed a 6.7 cm lobulated partially exophytic right renal mass (most consistent with primary renal neoplasm), low-attenuation liver lesions (likely representing hemangiomas or cysts which could be further evaluated by ultrasound) and an indeterminate small right middle lobe pulmonary nodule. Mrs. Willis was given options for treatment and is listed for a hand- assisted laparoscopic right nephrectomy on June 04, 2018. A message was left informing her that her procedure on June 04 needs to be moved back to another date, per Dr. Charles's service. She is being seen today for a second opinion on management of her right renal mass. Patient's main special education bus driver for her visit today is that she is having a difficult time trying to decide between nephron sparing surgery and radical procedure. She is also not particularly interested in a flank approach if she elects for a partial nephrectomy. PAST MEDICAL/SURGICAL HISTORY Past Medical History: Diagnosis Date ??? Deficiency Vitamin D ??? Gastroesophageal Reflux Disease ??? Hernia Umbilical ??? Hypertension NOS ??? Lesion Liver 04/2018 Multiple indeterminate lesions ??? Mass Kidney 04/2018 Right kidney ??? Polyp Colon 2013 ??? Pulmonary Nodule Computed Tomography Indeterminate 04/2018 Past Surgical History: Procedure Laterality Date ??? HYSTERECTOMY SYSTEMS REVIEW Constitutional: Positive for fatigue. Gastrointestinal: Positive for abdominal (belly) pain or cramping. Negative for nausea and vomiting. Genitourinary: Negative for hematuria. Hematologic: Negative for abnormal lumps or bumps. Neurological: Negative for headaches. IMPRESSION/REPORT/PLAN #1 Indeterminate right renal mass Plan I had a nice discussion the patient regarding options for management of her renal mass. These include radical or partial nephrectomy. We discussed a flank approach as well as a midline approach for a partial nephrectomy. She could also elect for a hand assist radical nephrectomy which would have restore hospitalization recovery time. We discussed the risks of urine leak and delayed bleed with any sort of nephron sparing approach. We also discussed the likelihood of residual renal function as well asthe on likelihood that she would ever need dialysis in the future. We discussed the importance of surveillance after her primary treatment to monitor for any evidence of residual recurrent disease. Dr. Silverio had a nice discussion with the patient as well. He discussed the options. After a thorough discussion with the patient as well as shared decision making, she wishes to proceed for with a nephron sparing approach, in favors partial nephrectomy with an anterior approach. This is set up forFebruary 2018. We will see her the day before for listing visit and preoperative examination. Recommendations 1. Listing visit and preoperative evaluation July 01, 2018 2. Open partial nephrectomy with an anterior approach July 02, 2018 at [facility] withDr. Silverio 30 min with the patient, 25 in direct counseling N SUPERVISOR Edy Silverio M.D. - 05/27/2018 9:00 AM CST REASON FOR CONSULT Right renal mass HISTORY OF PRESENT ILLNESS This is a supervisory note in support of Mr. Estrada's note from today on Ms. Karyna Willis, I have visited with the patient, and reviewed all pertinent details and I agree with the findings, recommendations, and plan as documented in that note. In brief, Ms. Karyna Willis is a very pleasant 63 y.o. year old woman who had an incidental finding of a solid enhancing renal mass. She has had multiple discussions regarding options for management and would like to review these again today. For the remainder of the details please see Mr. Estrada's excellent review of the presentation and findings. ASSESSMENT / PLAN #1 Solid enhancing mesophytic right renal mass I reviewed again with Mrs. Willis the options for management, including why we would not recommend systemic therapy radiotherapy percutaneous ablation or active surveillance. We discussed partial versusradical nephrectomy and after discussing the data for each she would like to proceed with an open midline transabdominal partial nephrectomy. We have discussed risks and complications. She would like to do this on July 02 and she will return on the for a listing visit in the afternoon. She will contact us with questions or concerns in the interim. I reviewed with her expectations for cure and convalescence I explained that cure rates are equally high with partial and radical nephrectomy but that other benefits of partial versus radical are not clear based on the current data. She indicated understanding of all this. N SUPERVISOR documented in this encounter Plan of Treatment Scheduled Referrals Name Type Priority Associated Order Schedule Diagnoses Urology office visit Outpatient Referral Routine Expected: (clinic) - Other 07/01/2018, provider Expires: 05/27/2021 Preoperative Outpatient Referral Routine Mass Kidney Expected : Evaluation MARYA 07/01/2018, Consult (Clinic) Expires: 05/27/2021 documented as of this encounter Results (ABNORMAL) Basic Metabolic Panel (07/01/2018 12:04 PM CABIN SUPERVISOR) [facility] Method Time Signature Potassium, S 4.6 3.6 - 5.2 07/01/2018 [facility] mmol/L 12:56 PM CABIN SUPERVISOR [facility] Sodium, S 141 135 - 145 07/01/2018 [facility] mmol/L 12:56 PM CABIN SUPERVISOR [facility] Chloride, S 104 98 - 107 07/01/2018 [facility] mmol/L 12:56 PM CABIN SUPERVISOR [facility] Bicarbonate, S 25 22 - 29 07/01/2018 [facility] mmol/L 12:56 PM CABIN SUPERVISOR [facility] Anion Gap 12 7 - 15 07/01/2018 [facility] 12:56 PM CABIN SUPERVISOR [facility] BUN (Blood 18 6 - 21 07/01/2018 [facility] Urea mg/dL 12:56 PM CABIN SUPERVISOR LABORATORIES - Nitrogen), S [facility] Creatinine 1.11 (H) 0.59 - 07/01/2018 [facility] 1.04 12:56 PM CABIN SUPERVISOR LABORATORIES - mg/dL [facility] eGFR-Non 52 (L) >=60 07/01/2018 [facility] Black/ mL/min/BS 12:56 PM CABIN SUPERVISOR LAB[facility]ATORIES - [place] A [facility] Comment: ----ADDITIONAL INFORMATION---- Estimated GFR calculated using the 2009 CKD_EPI creatinine equation. eGFR-Black/ 60 >=60 mL/min/BSA 07/01/2018 12:5 6 [facility] [place] PM CABIN SUPERVISOR [facility] Comment: ----ADDITIONAL INFORMATION---- Estimated GFR calculated using the 2009 CKD_EPI creatinine equation. Calcium, Total, S 9.1 8.8 - 10.2 mg/dL 07/01/2018 12:5 6 PM [facility] CABIN SUPERVISOR [facility] - [facility] S Glucose, S 91 70 - 140 mg/dL 07/01/2018 12:56 PM [facility] CABIN SUPERVISOR [facility] - [facility] S Specimen Anatomical Collection Method Collection Time Receive d Time (Source) Location / / Volume Laterality Blood (Blood, 07/01/2018 12:04 07/01/2018 Venous) PM CABIN SUPERVISOR 12:24 PM CABIN SUPERVISOR Benjamin Carlos M.D. LAB BLOOD ADD-ON Performing Organization Address City/[facility] Code Phon e Number [facility] - [address] [place] [address] [facility] Type and Screen (with reflex Antibody ID) (07/01/2018 12:03 PM CABIN SUPERVISOR) [facility] Method Time Signature ABORh A Pos Not 07/01/2018 [facility] applicable 2:45 PM LABORATORIES - CABIN SUPERVISOR [facility] Antibody Negative Negative 07/01/2018 [facility] Screen 2:54 PM LABORATORIES - CABIN SUPERVISOR [facility] Type & [id number] 07/01/2018 [facility] Screen 2:45 PM LABORATORIES - Expiration CABIN SUPERVISOR [facility] Testing [place] DEFAULT 07/01/2018 [facility] Location 12:58 PM LABORATORIES - CABIN SUPERVISOR [facility] Specimen Anatomical Collection Method Collection Time Receive d Time (Source) Location / / Volume Laterality Blood (Blood, 07/01/2018 12:03 07/01/2018 Venous) PM CABIN SUPERVISOR 12:58 PM CABIN SUPERVISOR Benjamin Carlos M.D. LAB BLOOD BANK TEST ORDERABL ES Performing Organization Address [facility] Phon e Number [facility] - [address] [place] [address] [facility] CBC without Differential (07/01/2018 12:03 PM CABIN SUPERVISOR) [facility] [employer] [facility] Method Time Signature Hemoglobin 13.6 11.6 - 07/01/2018 [facility] 15.0 g/dL 12:33 PM CABIN SUPERVISOR [facility] Hematocrit 41.4 35.5 - 07/01/2018 [facility] 44.9 % 12:33 PM CABIN SUPERVISOR [facility] Erythrocytes 4.93 3.92 - 07/01/2018 [facility] 5.13 12:33 PM CABIN SUPERVISOR LABORATORIES - x10(12)/L [facility] MCV 84.0 78.2 - 07/01/2018 [facility] 97.9 fL 12:33 PM CABIN SUPERVISOR [facility] RBC Distrib Width 14.4 12.2 - 07/01/2018 [facility] 16.1 % 12:33 PM CABIN SUPERVISOR [facility] Platelet Count 193 157 - 371 07/01/2018 [facility] x10(9)/L 12:33 PM CABIN SUPERVISOR [facility] Leukocytes 4.3 3.4 - 9.6 07/01/2018 [facility] x10(9)/L 12:33 PM CABIN SUPERVISOR [facility] Specimen Anatomical Collection Method Collection Time Receive d Time (Source) Location / / Volume Laterality Blood (Blood, 07/01/2018 12:03 07/01/2018 Venous) PM CABIN SUPERVISOR 12:24 PM CABIN SUPERVISOR Benjamin Carlos M.D. LAB BLOOD ADD-ON Performing Organization Address City/State/ZIP Code Phon e Number [facility] - [address] [place] [address] [facility] documented in this encounter Visit Diagnoses Diagnosis Mass Kidney - Primary documented in this encounter
--- OUTSIDE RECORDS SUMMARY | 2022-02-09 08:09 | XMS_ITS | Encounter Summary ---
:1955 Author Organization [facility] Address [address] [place] [address] Care Team Providers Name Role Phone Unavailable Primary Care Provider Unavailable Reason for Referral Outpatient (Routine) - Closed Specialty Diagnoses / Procedures Referred By Contact Refer red To Contact Research Diagnoses Mass Kidney Jeovany Reyes M.D. [facility] [address] [place] [phone] Referral ID Status Reason Start Date Expiration Date Visits Requ ested Visits Authorized [id number] Closed 06/28/2018 06/28/2019 1 1 MBLER TUBING Encounter Details Date Type Department Care Team Description 06/28/2018 Orders Only Department of Urology [facility] (Primary in [place], CCRP Dx) [place] [phone] [place] [address] (Work) [place] [phone] Social History Tobacco Use Types Packs/Day Years [...] at Date Recorded Female 05/10/2018 8:56 AM ASSEMBLER TUBING documented as of this encounter Plan of Treatment Scheduled Referrals Name Type Priority Associated Order Schedule Diagnoses Research Study Outpatient Referral Routine Mass Kidney Expect ed: Coordinator office 9, visit (clinic) Expires: 06/28/2021 documented as of this encounter Visit Diagnoses Diagnosis Mass Kidney - Primary documented in this encounter
--- OUTSIDE RECORDS SUMMARY | 2022-02-09 08:09 | XMS_ITS | Encounter Summary ---
:1955 Author Organization [facility] Address [address] [place] [address] Care Team Providers Name Role Phone Unavailable Primary Care Provider Unavailable Encounter Details Date Type Department Care Team Description 07/01/2018 Hospital Encounter Department of Benjamin Carlos M ass Kidney Laboratory Medicine and MHeather Pathology, [facility] in [place], [place] [address] [place] [address] Social History Tobacco Use Types Packs/Day Years [...] or slept in a fci (including now)? Sex Assigned at Date Recorded Female 05/10/2018 8:56 AM DOUGHNUT GLAZIER documented as of this encounter Medications at Time of Discharge Medication Sig Dispensed Refills Start Date End Date acetaminophen (TYLENOL) Take 1 tablet (500 mg 0 0 07/06/2018 03/31/2019 500 mg tablet total) by mouth every 6 (six) hours as needed for moderate pain or score 4-6 of 10. cimetidine (TAGAMET) Take 200 mg by mouth 0 09/1503/31/2019 200 mg tablet every morning. docusate sodium Constipation is common 0 07/06/19 19 10/09/2018 (COLACE) 100 mg capsule following this procedure and may take several weeks to fully resolve. It is recommended that you take over the counter stool softeners such as docusate sodium (Colace) as needed to maintain soft, regular bowel movements. lisinopril Take 5 mg by mouth 4 04/13/20182019 (PRINIVIL,ZESTRIL) 5 mg every morning. tablet multivitamin (DAILY Take 1 tablet by mouth 0 03/2106/30/2020 MULTIPLE) tablet every morning. oxyCODONE (ROXICODONE) Take 1 tablet (5 mg [...] pain medications). documented as of this encounter Plan of Treatment Not on filedocumented as of this encounter Procedures Procedure Name Priority Date/Time Associated Diagnosis Comme nts BASIC METABOLIC Routine 07/01/2018 12:04 PM Mass Kidney Resul ts for this PANEL, S/P DOUGHNUT GLAZIER procedure are i n the results section. MISC RESEARCH Routine 07/01/2018 12:03 PM Mass Kidney Results for this ORDER, B DOUGHNUT GLAZIER procedure are i n the results section. CBC WITHOUT Routine 07/01/2018 12:03 PM Mass Kidney Results for this DIFFERENTIAL, B DOUGHNUT GLAZIER procedure ar e in the results section. TYPE AND SCREEN Routine 07/01/2018 12:03 PM Mass Kidney Resul ts for this DOUGHNUT GLAZIER procedure are i n the results section. documented in this encounter Results (ABNORMAL) Basic Metabolic Panel (07/01/2018 12:04 PM DOUGHNUT GLAZIER) [facility] Method Time Signature Potassium, S 4.6 3.6 - 5.2 07/01/2018 [facility] mmol/L 12:56 PM DOUGHNUT GLAZIER [facility] Sodium, S 141 135 - 145 07/01/2018 [facility] mmol/L 12:56 PM DOUGHNUT GLAZIER [facility] Chloride, S 104 98 - 107 07/01/2018 [facility] mmol/L 12:56 PM DOUGHNUT GLAZIER [facility] Bicarbonate, S 25 22 - 29 07/01/2018 [facility] mmol/L 12:56 PM DOUGHNUT GLAZIER [facility] Anion Gap 12 7 - 15 07/01/2018 [facility] 12:56 PM DOUGHNUT GLAZIER [facility] BUN (Blood 18 6 - 21 07/01/2018 [facility] Urea mg/dL 12:56 PM DOUGHNUT GLAZIER LAB[facility]IES - Nitrogen), S [facility] Creatinine 1.11 (H) 0.59 - 07/01/2018 [facility] 1.04 12:56 PM DOUGHNUT GLAZIER LABORATORIES - mg/dL [facility] eGFR-Non 52 (L) >=60 07/01/2018 [facility] Black/ mL/min/BS 12:56 PM DOUGHNUT GLAZIER LABORATORIES - [place] A [facility] Comment: ----ADDITIONAL INFORMATION---- Estimated GFR calculated using the 2009 CKD_EPI creatinine equation. eGFR-Black/ 60 >=60 mL/min/BSA 07/01/2018 12:5 6 [facility] [place]ese PM DOUGHNUT GLAZIER [facility] Comment: ----ADDITIONAL INFORMATION---- Estimated GFR calculated using the 2009 CKD_EPI creatinine equation. Calcium, Total, S 9.1 8.8 - 10.2 mg/dL 07/01/2018 12:5 6 PM [facility] DOUGHNUT GLAZIER [facility] - [facility] Glucose, S 91 70 - 140 mg/dL 07/01/2018 12:56 PM [facility] DOUGHNUT GLAZIER [facility] - [facility] S Specimen Anatomical Collection Method Collection Time Receive d Time (Source) Location / / Volume Laterality Blood (Blood, 07/01/2018 12:04 07/01/2018 Venous) PM DOUGHNUT GLAZIER 12:24 PM DOUGHNUT GLAZIER Benjamin Carlos M.D. LAB BLOOD ADD-ON Performing Organization Address City/State/ZIP Code Phon e Number [facility] - [address] [place], [place] [address] [facility] Miscellaneous Research, B (07/01/2018 12:03 PM DOUGHNUT GLAZIER) P athologist Signature Number of 5 07/01/2018 [facility] Specimens 12:23 PM DOUGHNUT GLAZIER Specimen Anatomical Collection Method Collection Time Receive d Time (Source) Location / / Volume Laterality Varies (Blood, 07/01/2018 12:03 9 Venous) PM DOUGHNUT GLAZIER 12:23 PM DOUGHNUT GLAZIER Jeovany Reyes M.D. LAB RESEARCH NO RESULT ROUTI NG Performing Organization Address City/[facility] Phon e Number [facility] - [address] [place], [place] [address] [place] [address] Laboratories-[facility] 200 [facility] Type and Screen (with reflex Antibody ID) (07/01/2018 12:03 PM DOUGHNUT GLAZIER) Patholo gist Method Time Signature ABORh A Pos Not 07/01/2018 [facility] applicable 2:45 PM LABORATORIES - DOUGHNUT GLAZIER [facility] Antibody Negative Negative 07/01/2018 [facility] Screen 2:54 PM LABORATORIES - DOUGHNUT GLAZIER [facility] Type & [id number] 07/01/2018 [facility] Screen 2:45 PM LABORATORIES - Expiration DOUGHNUT GLAZIER [facility] Testing Maribel DEFAULT 07/01/2018 [facility] Location 12:58 PM LABORATORIES - DOUGHNUT GLAZIER [facility] Specimen Anatomical Collection Method Collection Time Receive d Time (Source) Location / / Volume Laterality Blood (Blood, 07/01/2018 12:03 07/01/2018 Venous) PM DOUGHNUT GLAZIER 12:58 PM DOUGHNUT GLAZIER Benjamin Carlos M.D. LAB BLOOD BANK TEST ORDERABL ES Performing Organization Address City/State/[facility] Phon e Number [facility]IES - [address] [place] [address] [facility] CBC without Differential (07/01/2018 12:03 PM DOUGHNUT GLAZIER) [facility] Method Time Signature Hemoglobin 13.6 11.6 - 07/01/2018 [facility] 15.0 g/dL 12:33 PM DOUGHNUT GLAZIER [facility] - [facility] Hematocrit 41.4 35.5 - 07/01/2018 [facility] 44.9 % 12:33 PM DOUGHNUT GLAZIER [facility] - [facility] Erythrocytes 4.93 3.92 - 07/01/2018 [facility] 5.13 12:33 PM DOUGHNUT GLAZIER LABORATORIES - x10(12)/L [facility] MCV 84.0 78.2 - 07/01/2018 [facility] 97.9 fL 12:33 PM DOUGHNUT GLAZIER LABORATORIES [facility] RBC Distrib Width 14.4 12.2 - 07/01/2018 [facility] 16.1 % 12:33 PM DOUGHNUT GLAZIER [facility] - [facility] Platelet Count 193 157 - 371 07/01/2018 [facility] x10(9)/L 12:33 PM DOUGHNUT GLAZIER [facility] - [facility] Leukocytes 4.3 3.4 - 9.6 07/01/2018 [facility] x10(9)/L 12:33 PM DOUGHNUT GLAZIER [facility] - [facility] Specimen Anatomical Collection Method Collection Time Receive d Time (Source) Location / / Volume Laterality Blood (Blood, 07/01/2018 12:03 07/01/2018 Venous) PM DOUGHNUT GLAZIER 12:24 PM DOUGHNUT GLAZIER Benjamin Carlos M.D. LAB BLOOD ADD-ON Performing Organization Address City/[facility]/ZIP Code Phon e Number [facility]IES - [address] [place] [address] [facility] documented in this encounter Visit Diagnoses Diagnosis Mass Kidney documented in this encounter
--- OUTSIDE RECORDS SUMMARY | 2022-02-09 08:11 | XMS_ITS ---
:1955 Author Care Team Providers Name Role Phone CHASE CAMARILLO MD Primary Care Provider [phone] Allergies Code Code System Name Reaction Severity Status Onset 668957 RxNorm Aciphex ? ? Active ? 5487 RxNorm Hydrochlorothiazide ? ? Active ? 756322 RxNorm Hydrochlorothiazide ? ? Active ? 494413 RxNorm Protonix ? ? Active ? Notes: 12/19/2019: environmental Medications Name Status Start Date Stop Date ? ? cephalexin 500 mg capsule Completed ? 2019 TK 1 C PO BID FOR 10 DAYS Fluad Quad (65yr up)(PF) 60 mcg (15 mcg x 4)/0.5mL IM s yringe Active ? Not available PHARMACY ADMINISTERED lisinopril 2.5 mg tablet Active ? Not bernadine ilable lisinopril 5 mg tablet Completed ? 0 TK 1 T PO QD [id number] 3.5 mg/mL-10,000 Active ? Not available unit/mL-0.1% eye drops Shingrix (PF) 50 mcg/0.5 mL intramuscular suspension, Active ? Not available kit Problems Name Status Onset Date Source ? Malignant Melanoma Active ? ? Polyp of Colon Active ? ? Hypertensive Disorder Active ? History Notes: 12/29/2019: *Problem Name: DAJUAN *Problem Status: active Procedures Date Name Performed by ? 08/02/2018 Colonoscopy Information not avai lable 11/19/2011 Excision of Mucous Cyst of Finger Inform ation not available Notes: and 07/2015 ? Excision of Melanoma Information not bernadine ilable Notes: *Surgery Date: 10/10/18 *Notes: Mohs Surgery. Left Mandible ? Hernia Repair Information not avai lable ? Nephrectomy NOS Information not avai lable Notes: *Surgery Date: 07-02-18 *Notes: Partial. Right Kidney. ? Non-surgical Breast Biopsy Information n ot available Notes: *Notes: left, benign ? Tooth Extraction Information not avai lable Notes: *Surgery Date: ? Total Abdominal Hysterectomy Information not available Notes: *Surgery Date: 12/2004 *Notes: F ibroids -Dr Khan Results Lab Results None recorded. Past Encounters 04/13/2021 Gynecologic Examination Natalee Marley MD: [address] [facility] [address], [address], [place] [address], Ph. Social History Tobacco Smoking Status Never Smoker Notes: Tobacco *Status: Never *Note: 10/14/2019 - Vaccine List None recorded. Plan of Care Reminders Provider Appointments None recorded. ? ? Lab None recorded. ? ? Referral None recorded. ? ? Procedures None recorded. ? ? Surgeries None recorded. ? ? Imaging None recorded. ? ? Vitals 04/13/2021 03:00PM G_ANNUAL EXAM Height Weight BMI Blood Pressure 5 ft 3 in 131 lbs 23.2 kg/m2 138/76 mm[Hg] 04/09/2020 08:15AM G_ANNUAL EXAM Height Weight BMI Blood Pressure 5 ft 3 in 155 lbs 27.5 kg/m2 128/74 mm[Hg] 03/21/2019 Height Weight BMI Blood Pressure 5 ft 3.96 in 166 lbs 28.49 kg/m2 142/90 mm[Hg] 04/16/2018 Height Weight BMI Blood Pressure 5 ft 3.96 in 168 lbs 28.84 kg/m2 144/80 mm[Hg] 04/26/2017 Height Weight BMI Blood Pressure 5 ft 3.96 in 167.19 lbs 28.70 kg/m2 152/88 mm[Hg] 11/15/2016 Height Blood Pressure 5 ft 3.96 in 148/80 mm[Hg] 04/24/2016 Height Weight BMI Blood Pressure 5 ft 3.96 in 173.81 lbs 29.83 kg/m2 144/88 mm[Hg] 03/27/2013 Height Weight BMI Blood Pressure 5 ft 3.96 in 177 lbs 30.38 kg/m2 134/76 mm[Hg] 08/04/2010 Height Weight BMI Blood Pressure 5 ft 3.96 in 168 lbs 28.84 kg/m2 120/76 mm[Hg] 02/11/2010 Height 5 ft 3.96 in 11/05/2008 Height Weight BMI Blood Pressure 5 ft 3.96 in 174 lbs 29.87 kg/m2 138/80 mm[Hg]
--- OUTSIDE RECORDS SUMMARY | 2022-02-09 08:11 | XMS_ITS | Clinical Summary ---
:1955 Author Organization [facility] [place] [address] Care Team Providers Name Role Phone Jenelle Orozco MD Primary Care Provider Allergies Active Allergy Reactions Severity Noted Date Comments Rabeprazole Rash 11/10/2016 Groin area Hydrochlorothiazide Angioedema 12/21/2009 Not patricia rly related but possible. Pantoprazole Other - Describe In High 08/11/2006 swelling to uvula, Comment Field, and rash in g roin Anaphylaxis Other reaction( s): Other (see comm ents) swelling to uvu la, and rash in azam in Medications Medication Sig Dispensed Refills Start Date End Date Status multivitamin Take 1 tablet by 0 11/04/2019 Active pediatric chewable mouth once daily. tablet Flinstones with Iron 1 tab daily lisinopriL (PRINIVIL; TAKE 1 TABLET BY 30 Tablet 0 01/20/2021 Active ZESTRIL) 2.5 mg MOUTH EVERY DAY tabletIndications: Essential hypertension Active Problems Problem Noted Date Immunization reaction 07/22/2020 Menopause 07/22/2020 Stage 3a chronic kidney disease 07/22/2020 Melanoma in situ 09/30/2019 Renal cell carcinoma 09/30/2019 Chronic GERD 09/30/2019 Adenomatous colon polyp 07/31/2013 Overview: Colonoscopy 07/2013 polyps repeat in 5 ye ars Colonoscopy 09/2018 redundant colon, repe at in 5 years, Pediatrics scope Unspecified essential hypertension 08/11/2006 Resolved Problems Problem Noted Date Resolved Date Pain in finger of right hand 04/17/2012 03/13/2013 Vitamin D deficiency 03/17/2011 03/13/2013 Perimenopause 12/21/2009 03/13/2013 Iron deficiency anemia, unspecified 02/19 Overview: Chronic Immunizations Name Administration Dates Next Due AMB Influenza, IIV3 (Age >=3 03/24/2010 years)(Flu Clinic Only) COVID-19 vaccine ([employer] 07/15/2020 30mcg/0.3mL) PF, MDV Hepatitis A (Adult) 01/14/1998, 06/15/1997 Hepatitis B (Adult) 06/26/1995, 02/05/1995, 12/19/1994 Inactivated Polio Vaccine 12/21/2011 Influenza Virus, Unspecified 04/09/2015, 03/08/2012, 011, 03/24/2010 Influenza, High-dose Inactivated 02/13/2019 Influenza, IIV3 (Age 6-35 mos) 04/09/2015, 03/16/2011 Influenza, IIV3 (Age >=3 years) 03/08/2012, 03/16/2011, 08/2009 Influenza, IIV4 03/18/2018, 01/31/2017, 01/26/2014 Influenza, IIV4 (=>6mos) MDV 03/18/2018 Influenza, Inactivated AIIV4 (Age 65+ 02/25/2020 Years) Preserv Free Influenza, Inactivated IIV3 (Age 65+ 02/25/2020, 02/13/2019 Years) Preserv Free Pneumococcal Poly,23-Valent 01/22/2020 (Pneumovax) Pneumococcal conj 13-Valent (Prevnar 01/14/2019 13) Td (Age >=7 Years) 12/19/1994 Td, Preservative Free (age >= 7 08/31/2004 Years) Tdap 11/10/2011 Typhoid (oral) 12/25/2011 Yellow Fever 12/21/2011 Zoster (Shingrix-RZV, recombinant) 04/21/2019, 01/14/2019 Zoster (Zostavax-ZVL, live) 01/31/2017 Zoster, Unspecified Formulation 04/08/2019 (Deferred: Patien t Refused) Family History Medical History Relation Name Comments Heart Disease Father Cancer-breast Mother dx 77years Other Other grandfather hear t disease Cancer-colon No Family History Cancer-ovarian No Family History Cancer-pancreatic No Family History Cancer-prostate No Family History Melanoma No Family History Relation Name Status Comments Father (Age 44) [place] , [place] Mother Alive Other Social History Tobacco Use Types Packs/Day Years Used Date Never Smoker Smokeless Tobacco: Never Used Tobacco Cessation: Counseling Given: Yes Alcohol Use Standard Drinks/Week Comments Not Currently 0 (1 standard drink = 0.6 oz pure alcoho l) Sex Assigned at Date Recorded Female 07/21/2020 1:19 PM ETHANOL OPERATIONS MANAGER Obstetrics History Last Filed Vital Signs Vital Sign Reading Time Taken Comments Blood Pressure 140/72 08/03/2020 3:49 PM CDT Pulse 58 08/03/2020 3:05 PM CDT Temperature 36.9 ??C (98.5 ??F) 06/11/2019 1:14 PM ETHANOL OPERATIONS MANAGER Respiratory Rate 16 07/31/2017 10:41 AM CDT Oxygen Saturation 100% 08/03/2020 3:05 PM CDT Inhaled Oxygen Concentration - - Weight 66.9 kg (147 lb 6.4 oz) 08/03/2020 3:05 PM CDT Height 160 cm (5' 2.99) 07/22/2020 7:52 AM ETHANOL OPERATIONS MANAGER Body Mass Index 26.12 07/22/2020 7:52 AM ETHANOL OPERATIONS MANAGER Plan of Treatment Health Maintenance Due Date Last Done Comments COVID-19 vaccine series (3 - 07/17/2021 03/16/2021, 021, Booster for Nacho series) 07/15/2020 BMI (ht and wt on same day) for 07/22/2021 07/22/2020, 05/22, age 18+ 06/03/2019, Additional history exists Depression screening for age 12+ 07/22/2021 07/22/2020, , 08/06/2018, Additional history exists Medicare Wellness for age 65+ 07/22/2021 07/22/2020 Mammogram for age 45-75 09/07/2021 09/07/2020, 09/01/2020, 04/22/2019, Additional history exists Tetanus booster 11/09/2021 11/10/2011, 08/31/2004, 12/19/1994 Influenza for age 65+ 01/19/2022 02/25/2020, 02/25/2020, 02/13/2019, Additional history exists Colonoscopy through age 75 09/25/2023 09/24/2018, 9, 09/24/2018, Additional history exists Lipids for age 45-75 07/22/2025 07/22/2020, 07/14/2016, 03/16/2011, Additional history exists Tdap Completed 11/10/2011 Hepatitis C screening for age Completed 03/08/2012 18-79 Zoster (shingles) series for age Completed 04/21/2019, , 50+ 01/31/2017 Pneumococcal series for age 65+ Completed 01/22/2020, 12/20 DEXA/DXA scan for age 65+ Completed 08/17/2020, 04/15/2013 Results Not on filefrom Last 3 Months Insurance Payer Benefit Plan / Subscriber ID Effective Dates Phone Addre ss Type Group MEDICARE PART A MEDICARE PART A [id number] 2018-Presen ATTN: CLAIMS - HB USE ONLY HB ONLY t [address] [place] [address] UCARE MR UCARE MEDICARE [id number] 2019-Present [address] [place] [address] Care Teams Traffic Signal Supervisor Maintenance Relationship Specialty Start Date End Date Jenelle Orozco MD PCP - General Family Practice 09/30/19 [address] [place] [address]
--- OUTSIDE RECORDS SUMMARY | 2022-02-09 08:11 | XMS_ITS | Continuity of Care Document ---
:1955 Author Organization [facility] Address [address] [address]- Care Team Providers Name Role Phone Physician, Other Primary Care Physician Unavailable Encounter Date(s): 12/26/21 - 12/26/21 [facility] [address] [facility] [address] [place] [address]- Encounter Diagnosis Hoarseness (Discharge Diagnosis) - 12/26/21 Discharge Disposition: 01-Discharge to Home (Routine) Attending Physician: Darius Rosen MD Allergies, Adverse Reactions, Alerts Substance Reaction Severity Status proton pump inhibitors Dizziness Moderate Active Assessment and Plan Extracted from: Title: ED Note Author: Darius Rosen MD Date: 12/26/21 1.??Hoarseness Ordered: Discharge Patient ?? Orders: EKG Medications lisinopril 2.5 mg oral tablet 2.5 mg = 1 tab(s), Oral, DAILY, # 90 tab(s), 3 Refill(s) Start Date: 12/26/21 Status: Ordered Mental Status 12/26/21 Level of Consciousness Alert Procedures Procedure Date Related Diagnosis Body Site Status ROUTINE VENIPUNCTURE 12/26/21 Complet ed ROUTINE VENIPUNCTURE 12/26/21 Complet ed ROUTINE VENIPUNCTURE 12/26/21 Complet ed ROUTINE VENIPUNCTURE 12/26/21 Complet ed ROUTINE VENIPUNCTURE 12/26/21 Complet ed Results Laboratory List Name Date .Auto Diff 12/26/21 CBC with Differential (CBC w/ Auto Diff) 12/26/21 Metabolic Panel, Comprehensive (CMP) 12/26/21 COVID19, SARS-CoV-2 ([employer]) 12/26/21 Most recent to oldest [Reference Range]: 1 COVID19, SARS-CoV-2 Result [Negative] Negative (12/26/21 6:55 PM) AGAP [2-16 mmol/L] 8 mmol/L (12/26/21 7:50 PM) Albumin Lvl [3.3-5.0 g/dL] 4.0 g/dL (12/26/21 7:50 PM) Alk Phos [45-115 IntUnit/L] 97 IntUnit/L (12/26/21 7:50 PM) ALT [7-55 Unit/L] 31 Unit/L (12/26/21 7:50 PM) AST [14-41 Unit/L] 25 Unit/L (12/26/21 7:50 PM) Basophil Auto 1 % *N/A* (12/26/21 7:50 PM) Bili Total [0.4-1.4 mg/dL] 0.4 mg/dL (12/26/21 7:50 PM) CO2 [21-33 mmol/L] 27 mmol/L (12/26/21 7:50 PM) Lymph Auto 25 % *N/A* (12/26/21 7:50 PM) MCH [27.0-34.0 pg] 29.7 pg (12/26/21 7:50 PM) MCHC [32.0-36.0 g/dL] 33.5 g/dL (12/26/21 7:50 PM) MCV [82.0-99.0 fL] 88.7 fL (12/26/21 7:50 PM) Plumas Auto 8 % *N/A* (12/26/21 7:50 PM) MPV [6.0-9.5 fL] 8.7 fL (12/26/21 7:50 PM) Neutro Auto 64 % *N/A* (12/26/21 7:50 PM) Eos Auto 3 % *N/A* (12/26/21 7:50 PM) Glucose Lvl [70-99 mg/dL] 98 mg/dL (12/26/21 7:50 PM) HCT [35.0-46.0 %] 39.6 % (12/26/21 7:50 PM) Hgb [11.7-15.5 g/dL] 13.3 g/dL (12/26/21 7:50 PM) RBC [3.85-5.05 x10^6/uL] 4.46 x10^6/uL (12/26/21 7:50 PM) RDW [11.5-15.0 %] 13.7 % (12/26/21 7:50 PM) Sodium Lvl [133-144 mmol/L] 143 mmol/L (12/26/21 7:50 PM) Total Protein [6.2-8.2 g/dL] 7.0 g/dL (12/26/21 7:50 PM) Platelet [150-450 x10^3/uL] 171 x10^3/uL (12/26/21 7:50 PM) Potassium Lvl [3.4-5.1 mmol/L] 3.8 mmol/L (12/26/21 7:50 PM) WBC [4.1-10.9 x10^3/uL] 4.0 x10^3/uL *LOW* (12/26/21 7:50 PM) BUN [6-24 mg/dL] 11 mg/dL (12/26/21 7:50 PM) Calcium Lvl [8.2-10.0 mg/dL] 8.8 mg/dL (12/26/21 7:50 PM) Chloride [96-109 mmol/L] 108 mmol/L (12/26/21 7:50 PM) Baso Number [0.0-0.2 x10^3/uL] 0.0 x10^3/uL (12/26/21 7:50 PM) Eos Number [0.0-0.5 x10^3/uL] 0.1 x10^3/uL (12/26/21 7:50 PM) Lymph Number [1.0-3.9 x10^3/uL] 1.0 x10^3/uL (12/26/21 7:50 PM) Plumas Number [0.1-0.9 x10^3/uL] 0.3 x10^3/uL (12/26/21 7:50 PM) Neut Number [1.9-8.1 x10^3/uL] 2.6 x10^3/uL (12/26/21 7:50 PM) Glomerular Filtration Rate [60.0-150.0 mL/min] 46.5 mL /min *LOW* (12/26/21 7:50 PM) Creatinine [0.4-1.0 mg/dL] 1.2 mg/dL *HI* (12/26/21 7:50 PM) Vital Signs Most recent to oldest [Reference Range]: 1 Blood Pressure [90-140/60-90 mmHg] 180/84 mmHg *HI* (12/26/21 7:05 PM) Peripheral Pulse Rate [60-100 bpm] 69 bpm (12/26/21 7:05 PM) Respiratory Rate [14-20 br/min] 18 br/min (12/26/21 7:05 PM) Social History Social History Type Response Smoking Status Never smoker; 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 Having a cold or a sinus infection, talking too loudly or yelling, smoking, or breathing dry air can cause a hoarse voice. You also can have voice problems from pollution and allergies. Sometimes, acid from your stomach can backup into your throat???called acid reflux???and change your voice. In some cases, a problem with the voice box, or larynx, causes hoarseness. Rest and home care may be all you need if you have a hoarse voice. Follow-up care is a alexander part of your treatment and safety. Be sure to make and go to all appointments, and call your doctor if you are having problems. It's also a good idea to know your test results and keep a list of the medicines you take. How can you care for yourself at home? Follow your doctor's advice about how much to talk. Use email or write notes when you can to rest your voice. ??? If your doctor prescribed antibiotics, take them as directed. Do not stop taking them just because you feel better. You need to take the full course of antibiotics. ??? Talk to your doctor about treatment for allergies if you do not already treat them. ??? Follow your treatment plan for acid reflux (if you have the condition): ??? Take your medicines exactly as prescribed. Call your doctor if you think you are having a problem with your medicine. ??? Limit or stop eating foods that make your acid reflux worse. These may include tomatoes, spicy foods, and chocolate. ??? Limit or stop drinking alcohol and drinks that have caffeine, such as coffee, tea, and lillie. ??? Raise the head of your bed a few inches. Place a brick or a foam wedge under the mattress at thehead of the bed. This will help keep stomach acid out of your throat at night. ??? When you do talk, do not whisper. It can be hard on your voice. ??? Use a vaporizer or humidifier to add moisture to your bedroom. Follow the directions for cleaning the machine. ??? Drink plenty of water to keep your throat moist. If you have kidney, heart, or liver disease andhave to limit fluids, talk with your doctor before you increase the amount of fluids you drink. ??? Do not smoke. Smoking can make your voice raspy and can increase your risk of throat cancer. If you need help quitting, talk to your doctor about stop- smoking programs and medicines. These can increase your chances of quitting for good. ??? To keep your voice from getting hoarse in the future, try not to talk loudly or shout, such as at sports events. When should you call for help? Call 911 anytime you think you may need emergency care. For example, call if: ??? You have trouble breathing. Call your doctor now or seek immediate medical care if: ??? You have trouble swallowing. ??? You have new or worse pain. Watch closely for changes in your health, and be sure to contact your doctor if: ??? You do not get better as expected. Where can you learn more? Go to https://www.[employer]net/patientEd Enter P454 in the search box to learn more about Hoarseness: Care Instructions. Current as of: January 26, 2021?Content Version: 13.3 ?? [employer]. Care instructions adapted under license by your healthcare professional. If you have questions abouta medical condition or this instruction, always ask your healthcare professional. [employer] disclaims any warranty or liability for your use of this information. Follow Up Care12/26/2021 18:15:33With:Physician, Other Address:Unknown When:1 to 2 days
[2022-02-09 10:25] LABS: Chloride* 104 mmol/L (96-114)
[2022-02-09 10:26] LABS: Potassium* 3.8 mmol/L (3.6-5.1); Sodium* 141 mmol/L (135-149)
[2022-02-09 10:28] LABS: Creatinine* 1.2 mg/dL (0.5-1.5); Estimated Glomerular Filt Rate 49 ml/min
[2022-02-09 10:29] LABS: Blood Urea Nitrogen* 12 mg/dL (7-30); Calcium* 9.5 mg/dL (8.4-10.6); Glucose* 116 mg/dL (60-115)
[2022-02-09 10:59] LABS: Carbon Dioxide* 26 mmol/L (20-32)
== END 2022-02-09 11:27 | disposition home or self-care (01) ==
PROVIDERS: PCP Internal Medicine; Visit Provider Internal Medicine
DX: I10 Essential (primary) hypertension (principal)
CPT/HCPCS: 80048

== ENCOUNTER 2022-11-17 18:59 | Emergency (ER) | payer MEDICARE, SELFPAY ==
[2022-11-17 19:08] VITALS: BP 179/84; PULSE 77; RESP 16; TEMP 36.9; O2SAT 100; BMI 22.8
--- NOTE | 2022-11-17 19:27 | ED_ITS ---
HPI - General Adult General Time Seen by Provider: 19:28 Date Seen: 11/17/22 Chief complaint: Back Injury/Pain Stated complaint: Backache on left side, dizzy, high BP Time Seen by Provider: 11/17/22 19:01 Source: patient and RN notes reviewed Mode of arrival: ambulatory Limitations: no limitations History of Present Illness HPI narrative: Karyan his 67-year-old female that was referred to ED by for concern of occult infection. Karyna start her history back in 2018 where she had a partial right nephrectomy for kidney cancer. She had a respiratory illness at that time, her D-dimer was elevated and imaging for chest CT PE protocol showed a lesion on the right kidney. She did not have a PE thankfully at that time. He recently was in for a CT scan on September 25 for routine follow-up, she notes they found a small lesion on her left lung and she has a follow-up in December instead of 1 year. After that they did some travel, she states she had a respiratory i nfection improved. She notes she had a black fly bite on her left leg in the maybe 1 on her right arm. She states the 1 on her right arm itch and a blue up, she did scratch it, thinks she got infected and had a little small head develop on it. She covered it with Neosporin. After that she saw the still operator whiskey who thought it looked fine. The past 2 days she has had chills in the evening and t hen felt hot and cold. Her temperature this morning was 969. Last night she actually held her lisinopril because her blood pressure was 101/53. She is concerned that she has an occult infection and they are leaving tomorrow to go up [place]. She states the last time they were up there she ended up with a pulse oximeter in the 80s, they were not sure if it was smoker GERD. She states she got an x-ray. She thinks it is a good idea to be checked out before leaving. She denies any cough or cold symptoms, no sore throat. She has had no abdominal pain, no dysuria but has noted some difficulty urinating, she was able to leave a urinalysis. No nausea vomiting or diarrhea. She still has a little small red dot in her antecubital fossa, also notes that she had the IV for the CT scan in that area as well. Related Data Home Medications Medication Instructions Recorded Confirmed Cholestertoff 900 mg PO BID 02/02/22 11/17/22 calcium citrate malate 250 1 tab PO QDAY PRN 02/02/22 11/17/22 mg-vitamin D3 2.5 mcg (100 unit) tablet lisinopril 2.5 mg tablet 2.5 mg PO BID 02/02/22 11/17/22 multivitamin (Multiple Vitamins 1 tab PO QAM 02/02/22 11/17/22 tablet) psyllium husk 3.4 gram/5.4 gram 1 tsp PO DAILY 02/02/22 11/17/22 oral powder Allergies Allergy/AdvReac Type Severity Reaction Status Date / Time hydrochlorothiazide Allergy Unknown Unknown Verified 11/17/22 19:08 pantoprazole Allergy Unknown Unknown Verified 11/17/22 19:08 polyethylene glycol Allergy Unknown loose Verified 11/17/22 19:08 stools Proton Pump Inhibitors Allergy Unknown Unknown Verified 11/17/22 19:08 Review of Systems Status of ROS: Reports: 10 or more systems reviewed and unremarkable except as noted in History and below PFSH PFSH Surgical History History of surgical removal of ganglion cyst (11/19/11) ?Z98.890 - Other specified postprocedural states (ICD-10) History of partial nephrectomy (07/02/18) ?Z90.5 - Acquired absence of kidney (ICD-10) History of malignant melanoma of skin (10/10/18) ?Z85.820 - Personal history of malignant melanoma of skin (ICD-10) History of inguinal hernia ?Z87.19 - Personal history of other diseases of the digestive system (ICD-10) History of hysterectomy (12/2004) ?Z90.710 - Acquired absence of both cervix and uterus (ICD-10) History of benign breast biopsy (2003) ?Z98.890 - Other specified postprocedural states (ICD-10) Social History Smoking Status: Never smoker Do you use any of these nicotine containing products: None How often do you have a drink containing alcohol: never AUDIT-C Alcohol total score: 0 Non-prescribed substance use: denies use Little interest or pleasure in doing things: not at all Feeling down, depressed, or hopeless: not at all Exam Const: Vital Signs, click to edit/add: Vital Signs - 24 hr 11/17/22 19:08 11/17/22 20:00 11/17/22 20:35 Temperature 98.4 F Pulse Rate [Right Pulse Oximeter] 77 86 62 Respiratory Rate 16 18 18 Blood Pressure [Ri ght Upper Arm] 179/84 H 171/90 H 161/92 H Pulse Oximetry 100 97 98 Oxygen Delivery Me thod Room Air Room Air Room Air Documenting provider has reviewed patient's vital signs: yes Common normals: no apparent distress, average body habitus, oriented x3, no limitations, healthy appearing and alert General appearance: cooperative, comfortable, well kempt and well developed HENMT: Common normals: normocephalic, head/scalp atraumatic and hearing grossly normal bilaterally Head and scalp: normocephalic and atraumatic Other: Wearing N95 mask. Eye: Common normals: PERRL, EOMs intact bilaterally, conjunctivae normal and no scleral icterus Conjunctiva: conjunctiva(e) normal Pupil: PERRL Neck & C-Spine: Common normals: full ROM, no lymphadenopathy, supple, no meningeal signs, no JVD and thyroid normal Thyroid: thyroid normal Resp: Common normals: normal respiratory effort, no retractions, no use of accessory muscles and clear to auscultation bilaterally Auscultation: clear to auscultation bilaterally Cardio: Common normals: no JVD, regular rate, regular rhythm, S1 normal heart sound, S2 normal heart sound, no gallops, no clicks and no murmurs Rate: regular rate Rhythm: regular rhythm Heart sounds: S1 normal and S2 normal GI: Common normals: Normal to inspection, nondistended, normoactive bowel sounds present, soft to palpation, non-tender, no hepatosplenomegaly and no masses Palpation: soft and no hepatosplenomegaly Extremity: Other: No lower extremity edema. Neuro: Common normals: oriented x3 and gait normal Sensorium/orientation: alert Meningeal signs: no meningeal signs Psych: Appearance: well kempt Course Course Hospital Course: Reviewed with patient that we will do blood work, she would like this, wants at least kidney function and cbc. Reviewed CRP and procalcitonin. She is very reluctant to consider CT imaging if deemed necessary in looking for occult infection. Reviewed with her that UC was concerned about elevated blood pressure, noted to be elevated here too. She states that this happens when she gets around us medical people. Certainly are not seeing low pressures here. She did take her lisinopril earlier today but again held evening dose last night. Patient declined COVID testing. Reevaluation(s) Time of Reevaluation #1: 21:00 Reevaluation #1: Reviewed with patient that her labs are normal. We will send the urine for culture but there is no evidence of UTI on urinalysis. Bladder scan was done and there is no evidence of any retention. We are going to discharge to home for her to further monitor symptoms and follow up if there are further concerns. Vital Signs Vital signs: Initial Vital Signs Temperature 98.4 F 11/17/22 19:08 Temperature Source Temporal Artery Scan 11/17/22 19:08 Pulse Rate 77 11/17/22 19:08 Pulse Rhythm Regular 11/17/22 19:08 Pulse Strength 3+ Normal 11/17/22 19:08 Respiratory Rate 16 11/17/22 19:08 Blood Pressure 179/84 H 11/17/22 19:08 Blood Pressure Mean 115 H 11/17/22 19:08 Blood Pressure Position Sitting 11/17/22 19:08 Pulse Oximetry 100 11/17/22 19:08 Oxygen Delivery Method Room Air 11/17/22 19:08 Vital Signs Temperature 98.4 F 11/17/22 19:08 Pulse Rate 77 11/17/22 19:08 Respiratory Rate 16 11/17/22 19:08 Blood Pressure 179/84 H 11/17/22 19:08 Pulse Oximetry 100 11/17/22 19:08 Oxygen Delivery Method Room Air 11/17/22 19:08 Temperature 98.4 F 11/17/22 19:08 Pulse Rate 62 11/17/22 20:35 Respiratory Rate 18 11/17/22 20:35 Blood Pressure 161/92 H 11/17/22 20:35 Pulse Oximetry 98 11/17/22 20:35 Oxygen Delivery Method Room Air 11/17/22 20:35 Medical Decision Making Lab Data Lab results reviewed: Yes I reviewed the patient's lab results Labs: Lab Results 06/30/23 06/30/23 Range/Units 19:48 20:27 WBC 5.00 (4.50-11.00) K/uL RBC 4.48 (4.00-5.20) m/uL Hgb 13.3 (12.0-16.0) gm/dL Hct 39.9 (33.0-51.0) % MCV 89 (80-100) fL MCH 30 (26-34) pg MCHC 33 (32-36) gm/dL RDW Coeff of [place] 12.9 (11.5-15.5) % Plt Count 175 (140-440) K/uL Neut % (Auto) 63.4 (42.0-72.0) % Lymph % (Auto) 23.6 (20-44) % [place] % (Auto) 7.8 (0.0-11.0) % Eos % (Auto) 4.4 (0.0-7.0) % Baso % (Auto) 0.8 (0.0-3.0) % Neut # (Auto) 3.17 (1.7-7.0) K/uL Lymph # (Auto) 1.18 (0.90-2.90) K/uL [place] # (Auto) 0.40 (0.00-0.90) K/UL Eos # (Auto) 0.22 (0.00-0.50) K/uL Baso # (Auto) 0.04 (0.00-0.30) K/uL Sodium 137 (135-149) mmol/L Potassium 3.8 (3.6-5.1) mmol/L Chloride 102 (96-114) mmol/L Carbon Dioxide 25 (20-32) mmol/L BUN 16 (7-30) mg/dL Creatinine 1.0 (0.5-1.5) mg/dL Estimated Creat Clear 43.92 Estimated GFR 61 ml/min Glucose 89 (60-115) mg/dL Lactate 0.5 (0.5-1.9) mmol/L Calcium 9.5 (8.4-10.6) mg/dL C-Reactive Protein < 0.5 L (0.5-1.0) mg/dL Procalcitonin 0.04 (<0.50) ng/mL Urine Color Yellow (Yellow) Urine Appearance Clear (Clear) Urine pH 7.0 (5.0-8.5) Ur Specific [place] 1.010 (1.000-1.030) Urine Protein Negative (Negative) Urine Glucose (UA) Negative (Negative) Urine Ketones Negative (Negative) Urine Blood Negative (Negative) Urine Nitrite Negative (Negative) Urine Bilirubin Negative (Negative) Urine Urobilinogen 0.2 (0.2-1.0) Ur Leukocyte Esterase Trace A (Negative) Urine RBC 0-2 (0-2) Urine WBC 0-2 (0-5) Ur Squamous Epith Cells None (None-Few) Urine Bacteria None (None) Critical Care Time Critical Care Time Critical Care Time: No Discharge Plan Discharge Clinical Impression: Elevated blood pressure reading, Chills Patient Disposition: Home, Self-Care Condition: Stable Instructions: Hypertension (ED) Additional Instructions: No evidence of infection based on labs today. We will culture the urine but the urinalysis is not showing any concern for UTI/infection. We will let you know if the urine culture should grow anything that would require treatment with a ntibiotic. Otherwise, continue to monitor your symptoms and if you do develop a specific symptom of infection like cough or do start having actual fevers, do recommend re-evaluation. Activity Level: Activity as Tolerated Discharge Diet: Regular Prescriptions: No Action multivitamin [Multiple Vitamins] Tablet 1 tab PO QAM calcium citrate malate-vit D3 250 mg-2.5 mcg (100 unit) tablet 1 tab PO QDAY PRN psyllium husk 3.4 gram/5.4 gram powder 1 tsp PO DAILY Cholestertoff 900 mg PO BID lisinopril 2.5 mg tablet 2.5 mg PO BID Follow Up/Referrals: Ivana Bains MD [Primary Care Provider] - Stand Alone Forms: MyHealth Info Instructions
[2022-11-17 19:53] LABS: Lactate* 0.5 mmol/L (0.5-1.9)
[2022-11-17 19:54] LABS: Basophils Percent Auto 0.8 % (0.0-3.0); Eosinophils Absolute Auto 0.22 K/uL (0.00-0.50); Eosinophils Percent Auto 4.4 % (0.0-7.0); Hematocrit 39.9 % (33.0-51.0); Hemoglobin* 13.3 gm/dL (12.0-16.0); Lymphocytes Absolute Auto 1.18 K/uL (0.90-2.90); Lymphocytes Percent Auto 23.6 % (20-44); Mean Corpuscular HGB Conc 33 gm/dL (32-36); Mean Corpuscular Hemoglobin 30 pg (26-34); Mean Corpuscular Volume 89 fL (80-100); Monocytes Percent Auto 7.8 % (0.0-11.0); Neutrophils Absolute Auto 3.17 K/uL (1.7-7.0); Neutrophils Percent Auto 63.4 % (42.0-72.0); Platelet Count* 175 K/uL (140-440); RDW Coefficient of Variation % 12.9 % (11.5-15.5); Red Blood Count 4.48 m/uL (4.00-5.20)
[2022-11-17 19:55] LABS: Basophils Absolute Auto 0.04 K/uL (0.00-0.30)
[2022-11-17 19:59] LABS: Slide Review Reflex No
[2022-11-17 20:00] VITALS: BP 171/90; PULSE 86; RESP 18; O2SAT 97
[2022-11-17 20:16] LABS: Chloride* 102 mmol/L (96-114); Potassium* 3.8 mmol/L (3.6-5.1); Sodium* 137 mmol/L (135-149)
[2022-11-17 20:19] LABS: Est. Creatinine Clearance* 43.92; Estimated Glomerular Filt Rate 61 ml/min
[2022-11-17 20:20] LABS: Blood Urea Nitrogen* 16 mg/dL (7-30); Calcium* 9.5 mg/dL (8.4-10.6); Carbon Dioxide* 25 mmol/L (20-32); Glucose* 89 mg/dL (60-115)
[2022-11-17 20:32] LABS: Appearance Urine Clear (Clear); Bilirubin Urine Negative (Negative); Blood Urine Negative (Negative); Color Urine Yellow (Yellow); Glucose Urine Negative (Negative); Ketones Urine Negative (Negative); Leukocyte Esterase Urine Trace (Negative); Nitrite Urine Negative (Negative); Protein Urine Negative (Negative); Urobilinogen Urine 0.2 (0.2-1.0)
[2022-11-17 20:35] VITALS: BP 161/92; PULSE 62; RESP 18; O2SAT 98
[2022-11-17 20:37] LABS: C Reactive Protein* < 0.5 mg/dL (0.5-1.0); Procalcitonin* 0.04 ng/mL (<0.50)
[2022-11-17 20:48] LABS: RBC Urine 0-2 (0-2); WBC Urine 0-2 (0-5)
--- NOTE | 2022-11-17 21:12 | PC.NURSE ---
patients and DC with no further questions. stated understanding to DC instruction
== END 2022-11-17 21:11 | disposition home or self-care (01) ==
PROVIDERS: Emergency Provider Family Medicine; PCP Internal Medicine
DX: R68.83 Chills (without fever) (principal); R03.0 Elevated blood-pressure reading, without diagnosis of hypertension
CPT/HCPCS: 36415; 51798; 80048; 81001; 83605; 84145; 85025; 86140; 87086; 99283; 99284

== ENCOUNTER 2023-04-08 15:19 | Emergency (ER) | payer MEDICARE, SELFPAY ==
[2023-04-08 15:31] VITALS: BP 159/75; PULSE 92; RESP 14; TEMP 36.6; O2SAT 100; BMI 23.0
--- NOTE | 2023-04-08 15:36 | ED.GENADULT ---
HPI - General Adult General Time Seen by Provider: 15:36 <Yoanna Benitez - Last Filed: 04/08/23 18:14> Date Seen: 04/08/23 <Yoanna Benitez - Last Filed: 04/08/23 18:14> Chief complaint: Laceration/Wound <Yoanna Benitez - Last Filed: 04/08/23 18:14> Stated complaint: Lac on L <Yoanna Benitez - Last Filed: 04/08/23 18:14> Time Seen by Provider: 04/08/23 15:35 <Yoanna Benitez - Last Filed: 04/08/23 18:14> Source: patient <Yoanna Benitez - Last Filed: 04/08/23 18:14> Mode of arrival: ambulatory <Yoanna Benitez - Last Filed: 04/08/23 18:14> Limitations: no limitations <Yoanna Benitez - Last Filed: 04/08/23 18:14> History of Present Illness HPI narrative: 67 yo female w/ a hx of kidney transplant not on any immunosuppressants presents 1.5 hours after a puncture wound on her L hand from a arias thorn she got while tending her cosby. She called the nurse production consultant and reported that she punctured her vein, the nurse then told her to go to the ER. She reported it bled for a bit and a hematoma developed. She notes mild soreness but denies severe pain. She denies weakness, numbness or tingling. Denies fever, chills, nausea, vomiting or rash. Last tetanus shot was in 2021. She is not on a blood thinner and has no family hx of bleeding or clotting disorders. Of note her cosby have not been treated with manure since the early summer. <Yoanna Benitez - Last Filed: 04/08/23 18:14> Related Data Home medications: Home Medications Medication Instructions Recorded Confirmed Cholestertoff 900 mg PO BID 02/02/22 01/31/23 calcium citrate malate 250 1 tab PO QDAY PRN 02/02/22 01/31/23 mg-vitamin D3 2.5 mcg (100 unit) tablet lisinopril 2.5 mg tablet 2.5 mg PO BID 02/02/22 01/31/23 multivitamin (Multiple Vitamins 1 tab PO QAM 02/02/22 01/31/23 tablet) psyllium husk 3.4 gram/5.4 gram 1 tsp PO DAILY 02/02/22 01/31/23 oral powder Previous Rx's Medication Instructions Recorded famotidine 20 mg tablet (Pepcid) 20 mg PO QDAY GERD #30 tabs 01/31/23 <Yoanna Olympia - Last Filed: 04/08/23 18:14> Allergies/adverse reactions: Allergies Allergy/AdvReac Type Severity Reaction Status Date / Time hydrochlorothiazide Allergy Unknown Unknown Verified 01/31/23 12:57 pantoprazole Allergy Unknown Unknown Verified 01/31/23 12:57 polyethylene glycol Allergy Unknown loose Verified 01/31/23 12:57 stools Proton Pump Inhibitors Allergy Unknown Unknown Verified 01/31/23 12:57 < - Last Filed: 04/08/23 18:14> Review of Systems Status of ROS: Reports: 10 or more systems reviewed and unremarkable except as noted in History and below <Yoanna Emmanuel - Last Filed: 04/08/23 18:14> PFSH PFSH Surgical History: Surgical History History of surgical removal of ganglion cyst (11/19/11) ?Z98.890 - Other specified postprocedural states (ICD-10) History of partial nephrectomy (07/02/18) ?Z90.5 - Acquired absence of kidney (ICD-10) History of malignant melanoma of skin (10/10/18) ?Z85.820 - Personal history of malignant melanoma of skin (ICD-10) History of inguinal hernia ?Z87.19 - Personal history of other diseases of the digestive system (ICD-10) History of hysterectomy (12/2004) ?Z90.710 - Acquired absence of both cervix and uterus (ICD-10) History of benign breast biopsy (2003) ?Z98.890 - Other specified postprocedural states (ICD-10) <ACTV8mean - Last Filed: 04/08/23 18:14> Social History: Social History Smoking Status: Never smoker Do you use any of these nicotine containing products: None How often do you have a drink containing alcohol: never AUDIT-C Alcohol total score: 0 Non-prescribed substance use: denies use Little interest or pleasure in doing things: not at all Feeling down, depressed, or hopeless: not at all <Yoannajose Benitez - Last Filed: 04/08/23 18:14> Exam Narrative: Exam Narrative: General: Pt seated upright and well appearing, NAD. MSK: Superficial puncture wound on the dorsal aspect of the L hand medial to the 1st metarsal without tendon involvement. Mild ecchymosis and swelling present, no erythema, drainage, bleeding or signs of infection. Disbursement Clerk strength intact b/l. Small abrasions also present over dorsal aspect of the hand slightly medial to the puncture wound without signs of infection. Resp: Breathing normally on RA Cardiac: Regular rate <Yoanna Emmanuel - Last Filed: 04/08/23 18:14> Exam Narrative: General: Pt seated upright and well appearing, NAD. MSK: Superficial puncture wound on the dorsal aspect of the L hand medial to the 1st metarsal without tendon involvement. Mild ecchymosis and swelling present, no erythema, drainage, bleeding or signs of infection. Disbursement Clerk strength intact b/l. Small abrasions also present over dorsal aspect of the hand slightly medial to the puncture wound without signs of infection. Resp: Breathing normally on RA Cardiac: Regular rate Agree with exam. No evidence of retained foreign body. Lacerations are extremely superficial. <Ciara Ghotra MD - Last Filed: 04/08/23 18:17> Const: Vital Signs, click to edit/add: Vital Signs - 24 hr 04/08/23 15:31 Temperature 97.8 F Pulse Rate [Pulse Oximeter] 92 Respiratory Rate 14 Blood Pressure [Ri ght Upper Arm] 159/75 H Pulse Oximetry 100 Oxygen Delivery Me thod Room Air <Yoanna Benitez - Last Filed: 04/08/23 18:14> Vital Signs, click to edit/add: Vital Signs - 24 hr 04/08/23 15:31 Temperature 97.8 F Pulse Rate [Pulse Oximeter] 92 Respiratory Rate 14 Blood Pressure [Ri ght Upper Arm] 159/75 H Pulse Oximetry 100 Oxygen Delivery Me thod Room Air <Ciara Ghotra MD - Last Filed: 04/08/23 18:17> Documenting provider has reviewed patient's vital signs: yes <Ciara Ghotra MD - Last Filed: 04/08/23 18:17> Course Course ED Course: DDx- Puncture wound, sporotrichosis, MRSA, tendon injury, laceration, bone bruise <Yoanna Benitez - Last Filed: 04/08/23 18:14> Vital Signs Vital signs: Initial Vital Signs Temperature 97.8 F 04/08/23 15:31 Temperature Source Temporal Artery Scan 04/08/23 15:31 Pulse Rate 92 04/08/23 15:31 Pulse Rhythm Regular 04/08/23 15:31 Respiratory Rate 14 04/08/23 15:31 Blood Pressure 159/75 H 04/08/23 15:31 Blood Pressure Mean 103 04/08/23 15:31 Blood Pressure Position Sitting 04/08/23 15:31 Pulse Oximetry 100 04/08/23 15:31 Oxygen Delivery Method Room Air 04/08/23 15:31 Vital Signs Temperature 97.8 F 04/08/23 15:31 Pulse Rate 92 04/08/23 15:31 Respiratory Rate 14 04/08/23 15:31 Blood Pressure 159/75 H 04/08/23 15:31 Pulse Oximetry 100 04/08/23 15:31 Oxygen Delivery Method Room Air 04/08/23 15:31 Temperature 97.8 F 04/08/23 15:31 Pulse Rate 92 04/08/23 15:31 Respiratory Rate 14 04/08/23 15:31 Blood Pressure 159/75 H 04/08/23 15:31 Pulse Oximetry 100 04/08/23 15:31 Oxygen Delivery Method Room Air 04/08/23 15:31 <Yoanna Benitez - Last Filed: 04/08/23 18:14> Initial Vital Signs Temperature 97.8 F 04/08/23 15:31 Temperature Source Temporal Artery Scan 04/08/23 15:31 Pulse Rate 92 04/08/23 15:31 Pulse Rhythm Regular 04/08/23 15:31 Respiratory Rate 14 04/08/23 15:31 Blood Pressure 159/75 H 04/08/23 15:31 Blood Pressure Mean 103 04/08/23 15:31 Blood Pressure Position Sitting 04/08/23 15:31 Pulse Oximetry 100 04/08/23 15:31 Oxygen Delivery Method Room Air 04/08/23 15:31 Vital Signs Temperature 97.8 F 04/08/23 15:31 Pulse Rate 92 04/08/23 15:31 Respiratory Rate 14 04/08/23 15:31 Blood Pressure 159/75 H 04/08/23 15:31 Pulse Oximetry 100 04/08/23 15:31 Oxygen Delivery Method Room Air 04/08/23 15:31 Temperature 97.8 F 04/08/23 15:31 Pulse Rate 92 04/08/23 15:31 Respiratory Rate 14 04/08/23 15:31 Blood Pressure 159/75 H 04/08/23 15:31 Pulse Oximetry 100 04/08/23 15:31 Oxygen Delivery Method Room Air 04/08/23 15:31 <Ciara Ghotra MD - Last Filed: 04/08/23 18:17> Medical Decision Making MDM Narrative Medical decision making narrative: 1-Penetrating Injury-Superficial penetrating injury of the L hand without signs of infection or sporotrichosis. She is not on any immunosuppressants and is not high risk for infection and is up to date on her tetanus vaccine. We discussed with the patient that we will not treat with prophylactic antibiotics at this time. We discussed that infection/sporotrichosis, though rare, may develop later on and to return to the ED if a hard nodule develops, if you experience fever, chills, or red streaks extending up the arm, increased pain, numbness, tingling or weakness. Please keep the area clean and dry, you may apply ice to help reduce swelling. 2-Pt discharged home and understands and agrees to the plan. <Yoannajose Benitez - Last Filed: 04/08/23 18:14> 1-Penetrating Injury-Superficial penetrating injury of the L hand without signs of infection or sporotrichosis. She is not on any immunosuppressants and is not high risk for infection and is up to date on her tetanus vaccine. We discussed with the patient that we will not treat with prophylactic antibiotics at this time. We discussed that infection/sporotrichosis, though rare, may develop later on and to return to the ED if a hard nodule develops, if you experience fever, chills, or red streaks extending up the arm, increased pain, numbness, tingling or weakness. Please keep the area clean and dry, you may apply ice to help reduce swelling. 2-Pt discharged home and understands and agrees to the plan. Patient seen in conjunction with medical student. I agree with HPI/exam and assessment plan and other contents of this note. <Ciara Ghotra MD - Last Filed: 04/08/23 18:17> Medical Records Medical records reviewed: Yes I reviewed the patient's medical records <Yoanna Benitez - Last Filed: 04/08/23 18:14> Discharge Plan Discharge Clinical Impression: Penetrating injury <Yoanna Benitez - Last Filed: 04/08/23 18:14> Patient Disposition: Home, Self-Care <Yoanna Benitez - Last Filed: 04/08/23 18:14> Condition: Unchanged <Yoanna Benitez - Last Filed: 04/08/23 18:14> Additional Instructions: Continue to monitor. Please expect the area of bleeding to change different colors. If you notice that you have increasing redness, swelling, fever or chills I would ask that she return to the emergency room. In the meantime please keep this area clean and dry. You may use bacitracin if you choose to do so. Happy Thanksgiving. <Yoanna Benitez - Last Filed: 04/08/23 18:14> Prescriptions: No Action multivitamin [Multiple Vitamins] Tablet 1 tab PO QAM calcium citrate malate-vit D3 250 mg-2.5 mcg (100 unit) tablet 1 tab PO QDAY PRN psyllium husk 3.4 gram/5.4 gram powder 1 tsp PO DAILY Cholestertoff 900 mg PO BID lisinopril 2.5 mg tablet 2.5 mg PO BID famotidine [Pepcid] 20 mg tablet 20 mg PO QDAY Qty: 30 0RF <Yoanna Benitez - Last Filed: 04/08/23 18:14> Follow Up/Referrals: Ivana Bains MD [Primary Care Provider] - <Yoanna Benitez - Last Filed: 04/08/23 18:14> Stand Alone Forms: MyHealth Info Instructions <Yoanna Benitez - Last Filed: 04/08/23 18:14>
== END 2023-04-08 16:16 | disposition home or self-care (01) ==
PROVIDERS: Emergency Provider Family Medicine; PCP Internal Medicine
DX: S61.231A Puncture wound without foreign body of left index finger without damage to nail, initial encounter (principal); W60.XXXA Contact with nonvenomous plant thorns and spines and sharp leaves, initial encounter
CPT/HCPCS: 99283

== ENCOUNTER 2023-05-28 10:51 | Outpatient (CLI) | payer MEDICARE, SELFPAY | END 2023-05-28 10:52 | disposition home or self-care (01) | LOC: NFLDREF 10:52 | PROVIDERS: PCP Internal Medicine; Visit Provider Internal Medicine | DX: N18.30 Chronic kidney disease, stage 3 unspecified (principal) | CPT/HCPCS: 80048 ==

== ENCOUNTER 2023-09-08 12:06 | Emergency (ER) | payer MEDICARE, SELFPAY ==
[2023-09-08 12:14] VITALS: BP 199/95; PULSE 88; RESP 18; TEMP 37.5; O2SAT 99; BMI 23.4
[2023-09-08 13:01] VITALS: RESP 18; O2SAT 99
--- NOTE | 2023-09-08 13:12 | ED.GENADULT ---
HPI - General Adult General Chief complaint: Unspecified Complaint, Adult Stated complaint: Front L tooth pain Time Seen by Provider: 09/08/23 12:49 History of Present Illness HPI narrative: This 68-year-old female comes in stating that she had some tooth pain on and off over the past few months as she bumped her tooth about 4 months ago. Today this pain is better. She also reports some chest tightness that she attributes to anxiety that occurred yesterday. She is feeling better also in that regard but comes in today because she has plans to leave for [place] tomorrow and wants to have reassurance before embarking on this trip. She arrives here with normal vital signs. Related Data Home Medications Medication Instructions Recorded Confirmed Cholestertoff 900 mg PO BID 02/02/22 05/28/23 lisinopril 2.5 mg tablet 2.5 mg PO BID 02/02/22 05/28/23 multivitamin (Multiple Vitamins 1 tab PO QAM 02/02/22 05/28/23 tablet) psyllium husk 3.4 gram/5.4 gram 1 tsp PO DAILY 02/02/22 05/28/23 oral powder calcium acetate 1 tab PO DAILY 05/28/23 05/28/23 cholecalciferol (vitamin D3) 25 25 mcg PO QDAY 05/28/23 05/28/23 mcg (1,000 unit) capsule Allergies Allergy/AdvReac Type Severity Reaction Status Date / Time hydrochlorothiazide Allergy Unknown Unknown Verified 05/28/23 09:55 pantoprazole Allergy Unknown Unknown Verified 05/28/23 09:55 polyethylene glycol Allergy Unknown loose Verified 05/28/23 09:55 stools Proton Pump Inhibitors Allergy Unknown Unknown Verified 05/28/23 09:55 Review of Systems Status of ROS: Reports: 10 or more systems reviewed and unremarkable except as noted in History and below Narrative: Constitutional: No fevers, no weight gain or loss. Eyes: No discharge. No vision changes. HENT: No congestion, no sore throat, no ear pain. Cardiovascular: No palpitations. Respiratory: No shortness of breath, no wheezes, no cough. Gastrointestinal: No abdominal pain, no vomiting, no diarrhea. Genitourinary: No dysuria, no hematuria. Musculoskeletal: Normal range of motion. Skin: No rashes, no pruritis. Neurological: No dizziness, weakness, sensory change, speech change. Endo/Heme/Allergies: No bruising or bleeding. No polydipsia. Pysch: no suicidality, no anxiety, no insomnia. All other systems reviewed and are negative. 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/02/18) ?Z90.5 - Acquired absence of kidney (ICD-10) History of malignant melanoma of skin (10/10/18) ?Z85.820 - Personal history of malignant melanoma of skin (ICD-10) History of inguinal hernia ?Z87.19 - Personal history of other diseases of the digestive system (ICD-10) History of hysterectomy (12/2004) ?Z90.710 - Acquired absence of both cervix and uterus (ICD-10) History of benign breast biopsy (2003) ?Z98.890 - Other specified postprocedural states (ICD-10) Social History Smoking Status: Never smoker Do you use any of these nicotine containing products: None Second hand tobacco smoke exposure: No How often do you have a drink containing alcohol: never AUDIT-C Alcohol total score: 0 Non-prescribed substance use: denies use Little interest or pleasure in doing things: not at all Feeling down, depressed, or hopeless: not at all Exam Narrative: Exam Narrative: Constitutional: Well-developed, well-nourished, no acute distress. HEENT: Normocephalic, atraumatic. Neck: Normal range of motion. Nontender. Supple. Heart: Regular. No murmurs. Normal rate. Intact distal pulses. Lungs: Clear to auscultation. No chest discomfort. No wheezes, rhonchi, or rales. Abdomen: Normal bowel sounds. Nontender. No rebound tenderness. Genitalia: Deferred. Back: No midline tenderness. Normal range of motion. Extremities: Normal range of motion. No injury. Skin: Intact. No rash. Warm. No erythema or pallor. Neurologic: No altered sensation. No weakness. Alert and oriented. Psychiatric: No suicidality. No anxiety or depression. No insomnia. Nursing notes and vitals signs are reviewed. Const: Vital Signs, click to edit/add: Vital Signs - 24 hr 09/08/23 12:14 09/08/23 13:01 09/08/23 13:18 Temperature 99.5 F Pulse Rate [Right Pulse Oximeter] 88 91 Respiratory Rate 18 18 Respiratory Rate [ tooth] 18 Blood Pressure [Ri ght Upper Arm] 199/95 H 180/97 H Pulse Oximetry 99 98 Oxygen Delivery Me thod Room Air Room Air Course Vital Signs Vital signs: Initial Vital Signs Temperature 99.5 F 09/08/23 12:14 Temperature Source Temporal Artery Scan 09/08/23 12:14 Pulse Rate 88 09/08/23 12:14 Pulse Rhythm Regular 09/08/23 12:14 Respiratory Rate 18 09/08/23 12:14 Blood Pressure 199/95 H 09/08/23 12:14 Blood Pressure Mean 129 H 09/08/23 12:14 Blood Pressure Position Sitting 09/08/23 12:14 Pulse Oximetry 99 09/08/23 12:14 Oxygen Delivery Method Room Air 09/08/23 12:14 Vital Signs Temperature 99.5 F 09/08/23 12:14 Pulse Rate 88 09/08/23 12:14 Respiratory Rate 18 09/08/23 12:14 Blood Pressure 199/95 H 09/08/23 12:14 Pulse Oximetry 99 09/08/23 12:14 Oxygen Delivery Method Room Air 09/08/23 12:14 Temperature 99.5 F 09/08/23 12:14 Pulse Rate 91 09/08/23 13:18 Respiratory Rate 18 09/08/23 13:18 Blood Pressure 180/97 H 09/08/23 13:18 Pulse Oximetry 98 09/08/23 13:18 Oxygen Delivery Method Room Air 09/08/23 13:18 Medical Decision Making MDM Narrative Medical decision making narrative: This patient comes in reporting several different transient symptoms and currently none of them are present. She comes in nevertheless because she is planning a trip to [place] tomorrow. An EKG is done which shows normal sinus rhythm. Labs are also acquired and returned normal and ever regard. Her white count is normal and her troponin is negative among all other tested labs. This was very reassuring to her. She is okay to be discharged home and hopefully will have a great trip. Lab Data Labs: Lab Results 09/08/23 Range/Units 13:25 WBC 5.01 (4.50-11.00) K/uL RBC 4.62 (4.00-5.20) m/uL Hgb 13.7 (12.0-16.0) gm/dL Hct 41.4 (33.0-51.0) % MCV 90 (80-100) fL MCH 30 (26-34) pg MCHC 33 (32-36) gm/dL RDW Coeff of [place] 12.9 (11.5-15.5) % Plt Count 184 (140-440) K/uL Neut % (Auto) 76.8 H (42.0-72.0) % Lymph % (Auto) 16.4 L (20-44) % [place] % (Auto) 4.8 (0.0-11.0) % Eos % (Auto) 1.4 (0.0-7.0) % Baso % (Auto) 0.4 (0.0-3.0) % Neut # (Auto) 3.80 (1.7-7.0) K/uL Lymph # (Auto) 0.80 L (0.90-2.90) K/uL [place] # (Auto) 0.20 (0.00-0.90) K/UL Eos # (Auto) 0.07 (0.00-0.50) K/uL Baso # (Auto) 0.02 (0.00-0.30) K/uL Abs Immat Gran (auto) 0.01 (0.00-0.30) K/uL Imm/Tot Granulo (auto) 0.2 % Sodium 142 (135-149) mmol/L Potassium 3.8 (3.6-5.1) mmol/L Chloride 111 (96-114) mmol/L Carbon Dioxide 26 (20-32) mmol/L Anion Gap 5 L (7-15) mEq/L BUN 15 (7-30) mg/dL Creatinine 0.9 (0.5-1.5) mg/dL Estimated Creat Clear 43.30 Estimated GFR 69 ml/min Glucose 90 (60-115) mg/dL Calcium 9.4 (8.4-10.6) mg/dL POC Troponin I 0.00 L (0.01-0.04) ng/ml ECG Data Attestation: I personally reviewed and interpreted this ECG as follows: Interpretation: Normal sinus rhythm. Rate is 79 beats per minute. There are no ST or T-wave abnormalities. Discharge Plan Discharge Clinical Impression: Feared condition not demonstrated Patient Disposition: Home, Self-Care Condition: Stable Additional Instructions: Use [id number] medicines as needed and directed. Activity as tolerated. Follow up with MD or return if worsening. Prescriptions: No Action multivitamin [Multiple Vitamins] Tablet 1 tab PO QAM psyllium husk 3.4 gram/5.4 gram powder 1 tsp PO DAILY Cholestertoff 900 mg PO BID lisinopril 2.5 mg tablet 2.5 mg PO BID cholecalciferol (vitamin D3) 25 mcg (1,000 unit) capsule 25 mcg PO QDAY calcium acetate 1 tab PO DAILY Follow Up/Referrals: Ivana Bains MD [Primary Care Provider] - Stand Alone Forms: [employer] Info Instructions
[2023-09-08 13:18] VITALS: BP 180/97; PULSE 91; RESP 18; O2SAT 98
--- OUTSIDE RECORDS SUMMARY | 2023-09-08 13:24 | XMS_ITS ---
Author Name Unknown Organization Unknown Patient Care team information Name Category Status Period Participants - - Proposed period not known -
--- OUTSIDE RECORDS SUMMARY | 2023-09-08 13:24 | XMS_ITS ---
Author Name Unknown Organization [facility] Address [address] [place] [address] Care Team Providers Care Tankerman Name Role Phone Unavailable Unavailable Unavailable Surgery Details Not on file Complications Check Surgery Details section. Procedure Estimated Blood Loss Check Surgery Details section. Procedure Findings Check Surgery Details section. Procedure Specimens Taken Check Surgery Details section.
--- OUTSIDE RECORDS SUMMARY | 2023-09-08 13:24 | XMS_ITS | Clinical Summary ---
Author Name Unknown Organization [facility] Address [address] [place] [address] Care Team Providers Care Director Of Vocational Guidance Name Role Phone Unavailable Primary Care Provider Unavailabl e Source Comments Patient records contain information from all sites at [facility]. For routine questions regarding patient records, call [phone] during business hours, M-F 8:00 AM - 5:00 PM Central Time. Record requests for emergency care only can be directed to [phone] at any time.[facility] Allergies Active Allergy Reactions Criticality Noted Date Comments Covid-19 Vacc,Mrna(Pfizer)(Pf) Other (see comments) 11/03/2021 Mouth tingling Famotidine Other (see comments) High 02/26/2023 Extreme fatigue Hydrochlorothiazide Rash 12/21/2009 Hives during sun exposure (swelling/choking feeling secondary to subsequently diagnosed GERD) Pantoprazole Rash,Other (see comments) High 08/11/2006 Rash in groin (note that oral symptoms were subsequently found to be secondary to undiagnosed GERD) Polyethylene Glycol Other (see comments) 01/10/2023 Proton Pump Inhibitors Rash,Other (see comments) 11/10/2016 Groin area Groin area Groin area Rabeprazole Rash 11/10/2016 Groin area Medications Medication Sig Dispensed Refills Start Date End Date Status MULTIVITAMIN ORAL Take by mouth. 2 gummies daily Active plant stanol toi (Cholest Off Plus) 450 mg capsule Take 2 capsules by mouth 2 (two) times a day. Active psyllium husk (METAMUCIL ORAL) Take 1 each by mouth daily. One tablespoon in 8 ounce of water Active azithromycin (ZITHROMAX) 500 mg tabletIndications:C ounseling Travel And Immunization Take 1 tablet (500 mg total) by mouth daily as needed (Traveler's diarrhea) for up to 3 doses. When outside US-STOP if diarrhea stops 3 tablet 02/26/2023 Active lisinopriL (PRINIVIL,ZESTRIL) 2.5 mg tablet Take 2 tablets (5 mg total) by mouth as directed. Take 2.5 mg in the morning and 5 mg at night 270 tablet 3 08/08/2023 08/07/2024 Active Hospital, Clinic, or Other Facility Administered Medication Ordered Dose Route Frequency Start Date End Date Status lidocaine-EPINEPHrine 1%-1:200,000 injection 2-50 mL (XYLOCAINE W/EPI) 2 - 50 mL Ifil As needed 10/10/2018 Acti ve ybbfmzcwkwt-icgiyiqnv-BYVIZKG rine 0.25%-1%-1:200,000 injection 2-50 mL 2 - 50 mL Ifil As needed 10/10/2018 Active Active Problems Problem Noted Date Diagnosed Date Chronic Kidney Disease (CKD) , Stage 3a Glomerular Filtration Rate (GFR) 45 To 59 03/13/2023 Melanoma Of Skin Cancer Personal History 020 Cancer Skin Family History 03/23/2020 Family History Genetic Disorder 03/23/2020 Cancer Renal Cell Carcinoma Personal History 07/2019 Cancer Breast Family History 03/23/2020 Mass Kidney 07/02/2018 Carcinoma Renal Cell Right 07/02/2018 Encounters Date Type Department Care Team Description 4 10:00 AM CDT Office Visit Division of Nephrology and Hypertension in [place], [place] [address] [place] [address] Tramaine Hope M.D. Hypocholesterolemia (Primary Dx); Hypertension And Chronic Kidney Disease Stage 1 To 4 4 6:38 AM CDT - 4 11:59 PM CDT Hospital Encounter Department of Laboratory Medicine and Pathology, [facility], in [place], [place] [address] [place] [address] Tramaine Hope M.D. Chronic Kidney Disease (CKD), Stage 3a Glomerular Filtration Rate (GFR) 45 To 59 (HCC) Discharge Disposition: Home or Self Care 4 6:38 AM CDT - 4 11:59 PM CDT Hospital Encounter Department of Laboratory Medicine and Pathology, [facility], in [place], [place] [address] [place] [address] Tramaine Hope M.D. Chronic Kidney Disease (CKD), Stage 3a Glomerular Filtration Rate (GFR) 45 To 59 (HCC); Hypocholesterolemia Discharge Disposition: Home or Self Care 4 Clinical Communication Department of Urology in [place], [place] [address] [place] [address] Edy Silverio M.D. Pre-visit Testing Orders (Prior to follow up CT) 4 Orders Only Division of Gastroenterology in [place], [place] [address] [place] [address] Mak Edouard M.D. Genetic Susceptibility To Disease from Last 3 Months Immunizations Name Administration Dates Next Due HZV (ZOSTAVAX) 01/31/2017 HepA Adult 01/14/1998,06/15/1997 HepB Adult 06/26/1995, 5,01/05/1995,1994 IPV 12/21/2011 Influenza (IM) Preservative Free 04/09/2015,02/19 Influenza TIV (IM) 02/25/2020, 2,03/16/2011,2009 Influenza high dose QV(65 ye ars or older) (PF) 02/26/2023,02/18/2021 Influenza, Quadrivalent, Adj uvanted, Preservative Free 02/27/2022,02/25/2020 Influenza, Seasonal, Injectable 03/08/2012,03/24 Influenza, Unspecified 04/09/2015,2011,03/16/2011,2009 PCV13 01/14/2019 PPSV23(Discontinued) 01/22/2020 RSV: respiratory syncytial v irus (AREXVY) recombinant vaccine 02/26/2023 RZV (SHINGRIX) 04/21/2019, 9(Deferred: Other - will get it with primary doctor),01/14/2019 SARS-COV-2 (COVID-19) - KEVIN AUDRA (J&J)(Discontinued) 11/22/2021,03/16/2021,01/06/2021 Td Preservative Free (TENIVA C, DECAVAC) 10/21/2011,08/31/2004 Tdap 03/01/2022,11/10/2011 Ty21a (oral) 06/01/2023,12/25/2011 YF 12/21/2011 influenza high dose (65 year s or older) (PF) 02/13/2019 influenza vaccine quad (FLUZONE/FLUARIX) (6 months and older)(PF) 03/18/2018,01/31/2017,01/26/2014 Family History Medical History Relation Name Comments Asthma Brother Rodney Coronary artery disease Father Mika sudd en 46 Hyperlipidemia Father Mika Unexplained Father Mika Dementia Maternal Grandfather RJennifer Whitney Arthritis Maternal Grandmother Donald Hyattluisottoniel Arthritis Mother Mahesh Forrester Breast cancer Mother Mahesh Forrester Colon polyps Mother Mahesh Forrester Hypertension Mother MJennifer Forrester Diabetes Mother's Sister G.Zoe Obesity Mother's Sister GLaisha Coronary artery disease Paternal Grandfather Paulie Forrester sudden 72? Hypertension Paternal Grandmother Mika Stroke Paternal Grandmother Mika Colon polyps Sister Victoria Sibley Skin cancer Sister Victoria Sibley Basal-face Relation Name Status Comments Brother Rodney Father Mika Maternal Grandfather RJennifer Hyattrigobertofawn Maternal Grandmother A. Edmarrigobertosultanaottoniel Mother MJennifer Medinas Mother's Sister G.Zoe Paternal Grandfather C. Adams Paternal Grandmother RMarikas Sister Victoria Sibley Social History Tobacco Use Types Packs/Day Years Used Date Smoking Tobacco: Never Passive Smoke Exposure: Past Smokeless Tobacco: Never Tobacco Cessation:Counseling Given: Not Answered Comments:passive smoke as a child, teen Alcohol Use Standard Drinks/Week Comments Not Currently 0 (1 standard drink = 0.6 oz pur e alcohol) not since 06/2017 Humiliation, Afraid, Rape, and Kick questionnair e Answer Date Recorded Within the last year, have y ou been afraid of your partner or ex-partner? No 09/22/2022 Within the last year, have y ou been humiliated or emotionally abused in other ways by your partner or ex-partner? No Within the last year, have y ou been kicked, hit, slapped, or otherwise physically hurt by your partner or ex-partner? No 09/22/2022 Within the last year, have y ou been raped or forced to have any kind of sexual activity by your partner or ex-partner? No 09/22/2022 Social Connection and Isolat ion Panel [NHANES] Answer Date Recorded In a typical week, how many times do you talk on the phone with family, friends, or neighbors? More than three times a week 09/22/2022 How often do you get togethe r with friends or relatives? More than three times a week 09/22/2022 How often do you attend chur or evangelical services? More than 4 times per year 09/22/2022 Do you belong to any clubs o r organizations such as orthodox groups, unions, fraternal or athletic groups, or school groups? Yes 09/22/2022 How often do you attend meet ings of the clubs or organizations you belong to? More than 4 times per year 09/22/2022 Are you , , di vorced, , never , or living with a partner? 09/22/2022 AUDIT-C Answer Date Recorded Q1: How often do you have a drink containing alc ohol? Never 09/22/2022 Average Number of Drinks Not on file 023 Frequency of Binge Drinking Not on file 09/2022 Overall Financial Resource Strain (CARDIA) Answe r Date Recorded How hard is it for you to pa y for the very basics like food, housing, medical care, and heating? Not hard at all 09/22/2022 PHQ-2 Answer Date Recorded PHQ-2 Score 1 04/08/2019 [facility] [place] [facility] Occupat ional Health - Occupational Stress Questionnaire Answer Date Recorded Do you feel stress - tense, restless, nervous, or anxious, or unable to sleep at night because your mind is troubled all the time - these days? Only a little 09/22/2022 Exercise Vital Sign Answer Date Recorde d On average, how many days pe r week do you engage in moderate to strenuous exercise (like a brisk walk)? 5 days 09/22/2022 On average, how many minutes do you engage in exercise at this level? 60 min 09/22/2022 Hunger Vital Sign Answer Date Recorded Within the past 12 months, y ou worried that your food would run out before you got the money to buy more. Never true 09/23/19 Within the past 12 months, t he food you bought just didn't last and you didn't have money to get more. Never true 09/22/2022 PRAPARE - Transportation Answer Date Re corded In the past 12 months, has l ack of transportation kept you from medical appointments or from getting medications? No 09/2022 In the past 12 months, has l ack of transportation kept you from meetings, work, or from getting things needed for daily living? No 09/22/2022 Housing Stability Vital Sign Answer Dean e Recorded In the last 12 months, was t here a time when you were not able to pay the mortgage or rent on time? No 09/22/2022 In the last 12 months, how many places have you lived? 1 09/22/2022 In the last 12 months, was t here a time when you did not have a steady place to sleep or slept in a half-way (including now)? No 09/22/2022 Nutrition Answer Date Recorded Nutrition: EVOO Fat Source Yes 09/22 On average, how many serving s of fruits and vegetables do you eat per day (serving size is equal to 1 cup or approximately the size of a tennis ball)? 6-7 09/22/2022 Dental Answer Date Recorded Dental: Regular Dentist Yes 01/04/20 Employment Answer Date Recorded Employment status Retired 09/22/2022 Education Answer Date Recorded What is the highest level of school you have completed or the highest degree you have received? 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 Sexual Orientation Straight 05/10/2018 8: 56 AM [employer] P[employer]ER AND [employer] SEALER Last Filed Vital Signs Vital Sign Reading Time Taken Comments Blood Pressure 143/72 08/08/2023 9:51 AM CDT Pulse 66 08/08/2023 9:51 AM CDT Temperature 36 ??C (96.8 ??F) 08/08/2023 9:51 AM CDT Respiratory Rate 16 07/07/2018 4:47 AM [employer] P[employer] SEALER Oxygen Saturation 97% 03/26/2019 8:14 AM [employer] P[employer]ER AND HE[employer] SEALER Inhaled Oxygen Concentration - - Weight 62.5 kg (137 lb 12.6 oz) 08/08/2023 9:51 AM CDT Height 159.4 cm (5' 2.76) 08/08/2023 9:51 AM CD T Body Mass Index 24.6 08/08/2023 9:51 AM CDT Plan of Treatment Upcoming Encounters Date Type Department Care Team (Latest Contact Info) Description 09/21/2023 7:45 AM CDT Clinical Communication Virtual Review in [place], [place] [address] [place] [address] 09/25/2023 8:30 AM CDT Appointment Department of Laboratory Medicine and Pathology, [facility] in [place], [place] [address] [place] [phone] Sarah Ruffin APRN, C.N.P., D.N.P. [address] [place] [phone] 09/25/2023 12:00 PM CDT Appointment Department of Radiology, [facility], in [place], [place] [address] [place] [phone] Sarah Ruffin APRN, C.N.P., D.N.P. [address] [place] [phone] 09/26/2023 9:30 AM CDT Office Visit Department of Urology in [address] [phone] Sarah Ruffin APRN, C.N.P., D.N.P. [address] [place] [phone] Health Maintenance Due Date Last Done Comments CT Colonography 1955 Cologuard 1955 Hepatitis C Screening 1955 Depression Screening (Annual PHQ-2) 05/21/2023 Fall Risk Screen (Annual) 05/21/2023 Colonoscopy 09/25/2023 09/24/2018, 0408/2018 (Performed elsewhere), 08/02/2018, Additional history exists Colorectal Cancer Surveillance 09/25/2023 Office Visit for Blood Press ure Check / Re-check 11/08/2023 08/08/2023 Mammogram 02/27/2024 02/26/2023, 10/19, 09/07/2020, Additional history exists Creatinine Level (Kidney Fun ction Test) 08/07/2024 08/08/2023, 01/25/2023, 09/25/2022, Additional history exists Potassium Level 08/07/2024 08/08/2023, 09/0 11/2022, 09/25/2022, Additional history exists Sodium Level 08/07/2024 08/08/2023, 09/0 11/2022, 09/25/2022, Additional history exists Fasting Glucose for Diabetes Screening 08/07/2026 08/08/2023, 01/25/2023, 09/25/2022, Additional history exists DTaP,Tdap,and Td Vaccines (3 - Td or Tdap) 03/01/2032 03/01/2022, 11/10/2011, 10/21/2011, Additional history exists Hepatitis B Vaccines Completed 06/26/1995, 02/05/1995, 01/05/1995, Additional history exists Hepatitis A Vaccines Completed 01/14/1998, 06/15/18 98 Zoster Vaccines Completed 04/21/2019, 12/20, 01/31/2017 Pneumococcal vaccine (65+ years) Completed 01/22/20, 01/14/2019 Bone Density Scan (Osteoporo sis Screen) Discontinued 02/26/2023, 08/18/2019 (Performed elsewhere) Influenza Vaccine Completed 02/26/2023, , 02/18/2021, Additional history exists RSV vaccine - (32-3 6 weeks) or 60+ years Completed 02/26/2023 COVID-19 Vaccine Completed 03/14/2023, 09/2021, 03/16/2021, Additional history exists Medical Devices Implanted Type Area Clinical Specialist Vascular Device Identifier Shelf Expiration Date Model / Serial / Lot Clp Hrzn Ti 6 Clp Md-Lg Grn - Sna - [id number] Implanted:Qt y: 1 on 07/02/2018 by Edy Silverio M.D. at [facility] Hardware e.g. pins/screws /rods Right: Abdomen Weck (Div of [employer]) [id number] / NA / Clp Hrzn Ti 6 Clp Md Clem - Sna - [id number] 2 Implanted:Qt y: 1 on 07/02/2018 by Edy Silverio M.D. at [facility] Hardware e.g. pins/screws /rods Right: Abdomen [employer] [id number] / NA / Clp Hrzn Ti 6 Clp Lg Orng - Sna - [id number] 2 Implanted:Qt y: 1 on 07/02/2018 by Edy Silverio M.D. at [facility] Hardware e.g. pins/screws /rods Right: Abdomen Weck (Div of [employer]) 4200 / NA / Clp Hrzn Ti 6 Clp Clem - S0000 - [id number] 2 Implanted:Qt y: 1 on 07/02/2018 by Edy Silverio M.D. at [facility] Hardware e.g. pins/screws /rods [employer] [id number] 02/05/2023 [id number] / 0000 / [id number] Procedures Procedure Name Priority Date/Time Associated Diagnosis Comments DIPSTICK, U Routine 08/08/2023 7:03 AM CDT IL OSMOLALITY ASSAY URINE Routine 08/08/2023 7:03 AM CDT PH, RANDOM, U Routine 08/08/2023 7:03 AM CDT MICROSCOPIC MANUAL Routine 08/08/2023 7: 03 AM CDT URINALYSIS WITH MICROSCOPIC Routine 08/08/2023 7:03 AM CDT Chronic Kidney Disease (CKD), Stage 3a Glomerular Filtration Rate (GFR) 45 To 59 (HCC) ALBUMIN, RANDOM, U Routine 08/08/2023 7: 03 AM CDT Chronic Kidney Disease (CKD), Stage 3a Glomerular Filtration Rate (GFR) 45 To 59 (HCC) LIPID PANEL, S Routine 08/08/2023 6:53 AM CDT Chronic Kidney Disease (CKD), Stage 3a Glomerular Filtration Rate (GFR) 45 To 59 (HCC) Hypocholesterolem ia RENAL FUNCTION PANEL, S Routine 08/08/2023 6:53 AM CDT Chronic Kidney Disease (CKD), Stage 3a Glomerular Filtration Rate (GFR) 45 To 59 (HCC) CBC WITH DIFFERENTIAL, B Routine 08/08/2023 6:53 AM CDT Chronic Kidney Disease (CKD), Stage 3a Glomerular Filtration Rate (GFR) 45 To 59 (HCC) BI BREAST SCREENING BILATERAL WITH TOMOSYNTHESIS RAD - Routine (most inpatients and all outpatients) 02/26/2023 12:02 PM CDT Screening Mammogram Average Risk Patient Dense Breasts, Unspecified from Last 3 Months or Most Recently Relevant to Health Maintenance Results * Osmolality, Urine (08/08/2023 7:03 AM CDT) Osmolality, U 228 150 - 1150 mOsm/kg 08/08/2023 7:33 AM CDT DTL Urine 08/08/2023 7:03 AM CDT 08/08/2023 7:15 AM CDT Tramaine Hope M.D. LAB URINE ORDERABLES [facility] [address] [place] [address], [facility] [address] [place] [address] * (ABNORMAL) Dipstick, Urine (08/08/2023 7:03 AM CDT) Hemoglobin, QL, U Negative Negative 08/08/2023 7:24 AM CDT DTL Leukocyte Esterase, U Trace(A) Negative 08/08/2023 7:24 AM CDT DTL Nitrite, U Negative Negative 08/08/2023 7:24 AM CDT DTL Ketone, U Negative Negative mg/dL 08/08/2023 7:24 AM CDT DTL Glucose, U Negative Negative mg/dL 08/08/2023 7:24 AM CDT DTL Urine 08/08/2023 7:03 AM CDT 08/08/2023 7:15 AM CDT Tramaine Hope M.D. LAB URINE ORDERABLES Performing Organization Address City/[facility]/ZIP Co de Phone Number [facility] [address] [place] [address], [facility] [address] [address] * pH, Random, Urine (08/08/2023 7:03 AM CDT) Pathologist [facility] pH, Random, U 6.5 4.5 - 8.0 08/08/2023 7:33 AM CDT DTL Urine 08/08/2023 7:03 AM CDT 08/08/2023 7:15 AM CDT Tramaine Hope M.D. LAB URINE ORDERABLES [facility] [address] [place] [address], [address] [address] * Microscopic Manual (08/08/2023 7:03 AM CDT) Microscopy Normal 08/08/2023 8:22 AM CDT DTL RBC <3 <3 /hpf 08/08/2023 8:22 AM CDT DTL WBC None Seen /hpf 08/08/2023 8:22 AM CDT DT Comment: ----REFERENCE VALUE---- <4 ??(Males) <11 (Females) Urine 08/08/2023 7:03 AM CDT 08/08/2023 7:15 AM CDT Tramaine Hope M.D. LAB URINE ORDERABLES Performing Organization Address [facility] Co de Phone Number [facility] [address] [place] [address] * Albumin, Random, Urine (08/08/2023 7:03 AM CDT) Albumin, Random, U <5.0 mg/L 2023 11:27 AM CDT DT Comment: ----ADDITIONAL INFORMATION---- This test has been modified from the woods manager's instructions. Its performance characteristics were determined by [facility] in a manner consistent with CLIA requirements. This test has not been cleared or approved by the U.S. Food and Drug Administration. Creatinine 71 mg/dL 08/08/2023 7:56 AM CDT DTL Albumin/Creatinine Ratio <7 <25 mg/g 08/08/2023 11:27 AM CDT DT Comment: This ratio may not correspond with the reference range because one or both of the values used to calculate the ratio was above or below the quantification limits. Urine (Urine, Midstream) 08/08/2023 7:03 AM CDT 08/08/2023 7:32 AM CDT Tramaine Hope M.D. LAB URINE ORDERABLES Performing Organization Address [facility] Co de Phone Number [facility] [address] [place] [address] * Urinalysis, with Microscopic: Urine, Midstream (08/08/2023 7:03 AM CDT) Source Urine, Urine, Midstream 08/08/2023 7:15 AM CDT DTL Color, U Yellow 08/08/2023 7:15 AM CDT DTL Clarity, U Clear 08/08/2023 7:15 AM CDT DTL Protein, U 6 <26 mg/dL 08/08/2023 7:56 AM CDT DTL Protein/Osmol ality 0.26 <0.42 ratio 08/08/2023 7:56 AM CDT DTL Predicted 24 HR Protein, U 199 <229 mg/24 h 08/08/2023 7:56 AM CDT DTL Predicted Range 49-806 mg/24 h 08/08/2023 7:56 AM CDT DTL Comment Micro done on <5 mL 08/08/2023 8:15 AM CDT DTL Urine (Urine, Midstream) 08/08/2023 7:03 AM CDT 08/08/2023 7:15 AM CDT Tramaine Hope M.D. LAB URINE ORDERABLES [facility] [place] [address] [place] [address], [facility] [address] [place] [address] * Lipid Panel (08/08/2023 6:53 AM CDT) Triglycerides 124 mg/dL 08/08/2023 7:54 AM CDT DTL Comment: ----REFERENCE VALUE---- Normal: <150 mg/dL Borderline High: 150-199 mg/dL High: 200-499 mg/dL Very High: > or =500 mg/dL Cholesterol, Total 194 mg/dL 2023 7:54 AM CDT DTL Comment: ----REFERENCE VALUE---- Desirable: < 200 mg/dL Borderline High: 200 - 239 mg/dL High: > or = 240 mg/dL Cholesterol, LDL, Calculated 112 mg/dL 08/08/2023 7:54 AM CDT DTL Comment: ----REFERENCE VALUE---- Desirable: <100 mg/dL Above Desirable: 100-129 mg/dL Borderline High: 130-159 mg/dL High: 160-189 mg/dL Very High: >=190 mg/dL ----ADDITIONAL INFORMATION---- LDL cholesterol calculated using the Bejarano/NIH equation. Cholesterol, HDL, S 60 >=50 mg/dL 08/08/2023 7:54 AM CDT DTL Cholesterol, Non-HDL, Calculated 134 mg/dL 08/08/2023 7:54 AM CDT DTL Comment: ----REFERENCE VALUE---- Desirable: <130 mg/dL Above Desirable: 130-159 mg/dL Borderline High: 160-189 mg/dL High: 190-219 mg/dL Very High: > or =220 mg/dL Fasting (8 HR or more) Yes 08/08/2023 7:34 AM CDT DTL Blood (Blood, Venous) 08/08/2023 6:53 AM CDT 08/08/2023 7:34 AM CDT Tramaine Hope M.D. LAB BLOOD ADD-ON [facility] [address] [place] [address], [facility] [address] [place] [address] * (ABNORMAL) Renal Function Panel (08/08/2023 6:53 AM CDT) Pathologist [facility] Potassium, S 3.9 3.6 - 5.2 mmol/L 08/08/2023 7:54 AM CDT DTL Sodium, S 140 135 - 145 mmol/L 08/08/2023 7:54 AM CDT DTL Chloride, S 104 98 - 107 mmol/L 08/08/2023 7:54 AM CDT DTL Bicarbonate, S 27 22 - 29 mmol/L 08/08/2023 7:54 AM CDT DTL Anion Gap 9 7 - 15 08/08/2023 7:54 AM CDT DTL BUN (Blood Urea Nitrogen), S 12 6 - 21 mg/dL 08/08/2023 7:54 AM CDT DTL Creatinine 1.18(H) 0.59 - 1.04 mg/dL 08/08/2023 7:54 AM CDT DTL Estimated GFR (eGFR) 50(L) >=60 mL/min/BSA 08/08/2023 7:54 AM CDT DTL Comment: Estimated GFR calculated using the 2020 CKD_EPI creatinine equation. Calcium, Total, S 9.8 8.8 - 10.2 mg/dL 08/08/2023 7:54 AM CDT DTL Glucose, S 82 70 - 140 mg/dL 08/08/2023 7:54 AM CDT DTL Albumin, S 4.2 3.5 - 5.0 g/dL 08/08/2023 7:54 AM CDT DTL Phosphorus (Inorganic), S 4.0 2.5 - 4.5 mg/dL 08/08/2023 7:54 AM CDT DTL Blood (Blood, Venous) 08/08/2023 6:53 AM CDT 08/08/2023 7:34 AM CDT Tramaine Hope M.D. LAB BLOOD ADD-ON [address] [address], [facility] [address] [address] * CBC with Differential, Blood (08/08/2023 6:53 AM CDT) Hemoglobin 12.9 11.6 - 15.0 g/dL 08/08/2023 7:27 AM CDT DTL Hematocrit 38.6 35.5 - 44.9 % 08/08/2023 7:27 AM CDT DTL Erythrocytes 4.33 3.92 - 5.13 x10(12)/L 08/08/2023 7:27 AM CDT DTL MCV 89.1 78.2 - 97.9 fL 08/08/2023 7:27 AM CDT DTL RBC Distrib Width 13.0 12.2 - 16.1 % 08/08/2023 7:27 AM CDT DTL Platelet Count 170 157 - 371 x10(9)/L 08/08/2023 7:27 AM CDT DTL Leukocytes 3.8 3.4 - 9.6 x10(9)/L 08/08/2023 7:27 AM CDT DTL Neutrophils 2.20 1.56 - 6.45 x10(9)/L 08/08/2023 7:27 AM CDT DHPM Lymphocytes 1.07 0.95 - 3.07 x10(9)/L 08/08/2023 7:27 AM CDT DTL Monocytes 0.32 0.26 - 0.81 x10(9)/L 08/08/2023 7:27 AM CDT DTL Eosinophils 0.14 0.03 - 0.48 x10(9)/L 08/08/2023 7:27 AM CDT DTL Basophils 0.03 0.01 - 0.08 x10(9)/L 08/08/2023 7:27 AM CDT DTL Blood (Blood, Venous) 08/08/2023 6:53 AM CDT 08/08/2023 7:13 AM CDT Tramaine Hope M.D. LAB BLOOD ADD-ON [facility] [address] [place] [address], [facility] DTL [facility] [address] [place] [address] DHPM [facility] [address] [place] [address] * BI Breast Screening Bilateral with Tomosynthesis (02/26/2023 12:02 PM CDT) Anatomical Region Laterality Modality Breast, Breast Imaging RST L OS, Breast Imaging ARZ LOS, Breast Imaging FLA LOS Bilateral Mammography 02/26/2023 2:25 PM CDT Impressions 02/26/2023 2:49 PM CDT Negative. RECOMMENDATION: ??Annual Screening Mammogram ASSESSMENT: ??BI-RADS: 1: Negative. Narrative 02/26/2023 2:49 PM CDT EXAM: ??BI BREAST SCREENING BILATERAL WITH TOMOSYNTHESIS Current study was evaluated with a Computer Aided Detection (CAD) system. INDICATION: ??Screening mammogram. COMPARISON: ??Prior exam(s) were available and reviewed for comparison. DENSITY: ??c. The breast(s) are heterogeneously dense, which may obscure small masses. FINDINGS: ??No findings of malignancy. ??No significant change since prior exam. Procedure Note Melvi Alcazar M.D. - 02/26/2023 EXAM: BI BREAST SCREENING BILATERAL WITH TOMOSYNTHESIS Current study was evaluated with a Computer Aided Detection (CAD) system. INDICATION: Screening mammogram. COMPARISON: Prior exam(s) were available and reviewed for comparison. DENSITY: c. The breast(s) are heterogeneously dense, which may obscuresmall masses. FINDINGS: No findings of malignancy. No significant change since priorexam. IMPRESSION: Negative. RECOMMENDATION: Annual Screening Mammogram ASSESSMENT: BI-RADS: 1: Negative. Mali Gonzalez M.D., Ph.D. IMG BI PROCE DURES from Last 3 Months or Most Recently Relevant to Health Maintenance Advance Directives For more information, please contact: [phone] * Full Code (Latest Code Status on File) Date Activated Date Inactivated Comments 07/02/2018 8:58 PM 07/07/2018 4:51 PM Question Answer Comments Full Code: Discussed * Full Code Date Activated Date Inactivated Comments 07/02/2018 8:32 AM 07/02/2018 8:58 PM Question Answer Comments Full Code: Discussed
--- OUTSIDE RECORDS SUMMARY | 2023-09-08 13:24 | XMS_ITS | Encounter Summary ---
Author Name Unknown Organization [facility] Address [address] [place] [address] Care Team Providers Care Senior Construction Estimator Name Role Phone Unavailable Primary Care Provider Unavailabl e Encounter Details Date Type Department Care Team (Latest Contact Info) Description 08/08/2023 6:38 AM CDT - 08/08/2023 11:59 PM CDT Hospital Encounter Department of Laboratory Medicine and Pathology, [facility] in [place], [place] [address] [place] [address] Tramaine Hope M.D. [address] [place] [phone] Chronic Kidney Disease (CKD), Stage 3a Glomerular Filtration Rate (GFR) 45 To 59 (HCC) Discharge Disposition: Home or Self Care Social History Tobacco Use Types Packs/Day Years Used Date Smoking Tobacco: Never Passive Smoke Exposure: Past Smokeless Tobacco: Never Comments:passive smoke as a child, teen Alcohol [...] How often do you attend chur or hindu services? More than 4 times per year 09/22/2022 Do you belong to any clubs o r organizations such as temple groups, unions, fraternal [...] Answer Date Recorded PHQ-2 Score 1 04/08/2019 [facility] - Occupational Stress [...] or slept in a longterm (including now)? No 09/22/2022 Nutrition Answer Date [...] Sex Assigned at Female 05/10/2018 8:56 AM EQUITY DIRECTOR Gender Identity Female 05/10/2018 8:56 AM EQUITY DIRECTOR Sexual Orientation Straight 05/10/2018 8: 56 AM EQUITY DIRECTOR documented as of this encounter Medications at Time of Discharge Medication Sig Dispensed Refills Start Date End Date azithromycin (ZITHROMAX) 500 mg tabletIndications:Coun seling Travel And Immunization Take 1 tablet (500 mg total) by mouth daily as needed (Traveler's diarrhea) for up to 3 doses. When outside [place]-STOP if diarrhea stops 3 tablet 02/26/2023 lisinopriL (PRINIVIL,ZESTRIL) 2.5 mg tablet Take 2 tablets (5 mg total) by mouth as directed. Take 2.5 mg in the morning and 5 mg at night 270 tablet 3 08/08/2023 08/07/2024 MULTIVITAMIN ORAL Take by mouth. 2 gummies daily plant stanol toi (Cholest Off Plus) 450 mg capsule Take 2 capsules by mouth 2 (two) times a day. psyllium husk (METAMUCIL ORAL) Take 1 each by mouth daily. One tablespoon in 8 ounce of water documented as of this encounter Plan of Treatment Upcoming Encounters Date Type Department Care Team (Latest Contact Info) Description 09/21/2023 7:45 AM CDT Clinical Communication Virtual Review in [address] [phone] 09/25/2023 8:30 AM CDT Appointment Department of Laboratory Medicine and Pathology, [facility] in [address] [phone] Sarah Ruffin APRN, C.N.P., D.N.P. [address] [place] [phone] 09/25/2023 12:00 PM CDT Appointment Department of Radiology, [facility] in [address] [phone] Sarah Ruffin APRN, C.N.P., D.N.P. [address] [place] [phone] 09/26/2023 9:30 AM CDT Office Visit Department of Urology in [address] [phone] Sarah Ruffin APRN, C.N.P., D.N.P. [address] [place] [phone] documented as of this encounter Procedures Procedure Name Priority Date/Time Associated Diagnosis Comments CT OSMOLALITY ASSAY URINE Routine 08/08/2023 7:03 AM CDT DIPSTICK, U Routine 08/08/2023 7:03 AM CDT PH, RANDOM, U Routine 08/08/2023 7:03 AM CDT MICROSCOPIC MANUAL Routine 08/08/2023 7: 03 AM CDT ALBUMIN, RANDOM, U Routine 08/08/2023 7: 03 AM CDT Chronic Kidney Disease (CKD), Stage 3a Glomerular Filtration Rate (GFR) 45 To 59 (HCC) URINALYSIS WITH MICROSCOPIC Routine 08/08/2023 7:03 AM CDT Chronic Kidney Disease (CKD), Stage 3a Glomerular Filtration Rate (GFR) 45 To 59 (HCC) documented in this encounter Results * (ABNORMAL) Dipstick, Urine (08/08/2023 7:03 AM CDT) Pathologist [facility] Hemoglobin, QL, U Negative Negative 08/08/2023 7:24 [...] CDT Tramaine Hope M.D. LAB URINE ORDERABLES [facility] [address] [place] [address], [facility] [address] [place] [address] * Osmolality, Urine (08/08/2023 7:03 AM CDT) Pathologist [facility] Osmolality, U 228 150 - 1150 mOsm/kg 08/08/2023 7:33 AM CDT DT Urine 08/08/2023 7:03 AM CDT 08/08/2023 7:15 AM CDT Tramaine Hope M.D. LAB URINE ORDERABLES Performing Organization Address City/[facility]/ZIP Co de Phone Number [facility] [address] [place] [address] * pH, Random, Urine (08/08/2023 7:03 AM CDT) pH, Random, U 6.5 4.5 - 8.0 08/08/2023 7:33 AM CDT DT Urine 08/08/2023 7:03 AM CDT 08/08/2023 7:15 AM CDT Tramaine Hope M.D. LAB URINE ORDERABLES Performing Organization Address City/[facility] Co de Phone Number [facility] [address] [place] [address] * Microscopic Manual (08/08/2023 7:03 AM CDT) Microscopy Normal 08/08/2023 8:22 AM CDT DTL RBC <3 <3 /hpf 08/08/2023 8:22 AM CDT DTL WBC None Seen /hpf 08/08/2023 8:22 AM CDT DTL Comment: ----REFERENCE VALUE---- <4 ??(Males) <11 (Females) Urine 08/08/2023 7:03 AM CDT 08/08/2023 7:15 AM CDT Tramaine Hope M.D. LAB URINE ORDERABLES Performing Organization Address City/[facility]/ZIP Co de Phone Number [facility] [address] [place] [address] [place] [address] * Urinalysis, with Microscopic: Urine, Midstream (08/08/2023 [...] CDT Tramaine Hope M.D. LAB URINE ORDERABLES [facility] 200 [place] [address], [facility] [address] [place] [address] * Albumin, Random, Urine (08/08/2023 7:03 AM CDT) Pathologist [facility] Albumin, Random, U <5.0 mg/L 2023 11:27 AM CDT DTL Comment: ----ADDITIONAL INFORMATION---- This test has been modified from the replenishment merchandising associate's instructions. Its performance characteristics were determined by [facility] in a manner consistent with CLIA requirements. This test has not been cleared or approved by the U.S. Food and Drug Administration. Creatinine 71 mg/dL 08/08/2023 7:56 AM CDT DTL Albumin/Creatinine Ratio <7 <25 mg/g 08/08/2023 11:27 AM CDT DTL Comment: This ratio may not correspond with the reference range because one or both of the values used to calculate the ratio was above or below the quantification limits. Urine (Urine, Midstream) 08/08/2023 7:03 AM CDT 08/08/2023 7:32 AM CDT Tramaine Hope M.D. LAB URINE ORDERABLES [facility] [address] [place] [address], [facility] DTL [facility] [address] [place] [address] documented in this encounter Visit Diagnoses Diagnosis Chronic Kidney Disease (CKD), Stage 3a Glomerular Filtration Rate (GFR) 45 To 59 (HCC) documented in this encounter
--- OUTSIDE RECORDS SUMMARY | 2023-09-08 13:24 | XMS_ITS | Clinical Summary ---
Author Name Unknown Organization [employer] [facility] Address [place], [place] [address] Care Team Providers Care Book Repairer Name Role Phone Ivana Bains MD Primary Care Provider [phone] Allergies Active Allergy Reactions Criticality Noted Date Comments Rabeprazole Rash 11/10/2016 Groin area Hydrochlorothiazide Angioedema 12/21/2009 Not clearly related but possible. Pantoprazole Other - Describe In Comment Field,Anaphylaxis High 08/11/2006 swelling to uvula, and rash in groin Other reaction(s): Other (see comments) swelling to uvula, and rash in groin Medications Medication Sig Dispensed Refills Start Date End Date Status multivitamin pediatric chewable tablet Take 1 tablet by mouth once daily. Flinstones with Iron 1 tab daily 0 11/04/2019 Active lisinopriL (PRINIVIL; ZESTRIL) 2.5 mg tabletIndications:Es sential hypertension TAKE 1 TABLET BY MOUTH EVERY DAY 30 Tablet 01/20/2021 Active Active Problems Problem Noted Date Diagnosed Date Immunization reaction 07/22/2020 Menopause 07/22/2020 Stage 3a chronic kidney disease 07/22/2020 Melanoma in situ 09/30/2019 Renal cell carcinoma 09/30/2019 Chronic GERD 09/30/2019 Adenomatous colon polyp 07/31/2013 Overview: Colonoscopy 07/2013 polyps repeat in 5 years Colonoscopy 09/2018 redundant colon, repeat in 5 years, Pediatrics scope Unspecified essential hypertension 08/11/2006 Resolved Problems Problem Noted Date Diagnosed Date Resolved Date Pain in finger of right hand 04/17/2012 03/13/2013 Vitamin D deficiency 03/17/2011 013 Perimenopause 12/21/2009 03/13/2013 Iron deficiency anemia, unspecified 03/13/2013 Overview: Chronic Immunizations Name Administration Dates Next Due AMB Influenza, IIV3 (Age >=3 years)(Flu Clinic Only) 03/24/2010 COVID-19 vaccine ([employer] NTBaseKit 30mcg/0.3mL) PF, MDV 07/15/2020 Hepatitis A (Adult) 01/14/1998,06/15/1997 Hepatitis B (Adult) 06/26/1995,02/05/1995,1994 Inactivated Polio Vaccine 12/21/2011 Influenza Virus, Unspecified 04/09/2015, 03/08/2012,03/16/2011,2009 Influenza, High-dose Inactivated 02/13/2019 Influenza, IIV3 (Age 6-35 mos) 04/09/2015,2010 Influenza, IIV3 (Age >=3 years) 03/08/2012,03/16,03/24/2010 Influenza, IIV4 03/18/2018,01/31/2017,01/26/2014 Influenza, IIV4 (=>6mos) MDV 03/18/2018 Influenza, Inactivated AIIV4 (Age 65+ Years) Preserv Free 02/25/2020 Influenza, Inactivated IIV3 (Age 65+ Years) Preserv Free 02/25/2020,02/13/2019 Pneumococcal Poly,23-Valent (Pneumovax) 01/22/2020 Pneumococcal conj 13-Valent (Prevnar 13) 01/14/2019 Td (Age >=7 Years) 12/19/1994 Td, Preservative Free (age > = 7 Years) 08/31/2004 Tdap 11/10/2011 Typhoid (oral) 12/25/2011 Yellow Fever 12/21/2011 Zoster (Shingrix-RZV, recombinant) 04/21/2019, Zoster (Zostavax-ZVL, live) 01/31/2017 Zoster, Unspecified Formulation 04/08/2019(Defer red: Patient Refused) Family History Medical History Relation Name Comments Heart Disease Father Cancer-breast Mother dx 77years Other Other grandfather hea rt disease Cancer-colon No Family History Cancer-ovarian No Family History Cancer-pancreatic No Family History Cancer-prostate No Family History Melanoma No Family History Relation Name Status Comments Father (Age 44) [place], [place] Mother Alive Other Social History Tobacco Use Types Packs/Day Years Used Date Smoking Tobacco: Never Smokeless Tobacco: Never Tobacco Cessation:Counseling Given: Yes Alcohol Use Standard Drinks/Week Comments Not Currently 0 (1 standard drink = 0.6 oz pur e alcohol) PHQ-2 Answer Date Recorded PHQ-2 TOTAL SCORE 0 07/22/2020 Social Connections Answer Date Recorded Frequency of Communication with Friends and Fami ly Not on file 05/19/2021 Financial Resource Strain Answer Date R ecorded Difficulty of Paying Living Expenses Not on file 05/19/2021 Difficulty of Paying Living Expenses Not on file 05/19/2021 Sex and Gender Information Value Date Recorded Sex Assigned at Female 07/21/2020 1:19 PM HOG PUSHER Gender Identity Female 07/21/2020 1:19 PM HOG PUSHER Sexual Orientation Straight 07/21/2020 1: 19 PM HOG PUSHER Obstetrics History Last Filed Vital Signs Vital Sign Reading Time Taken Comments Blood Pressure 140/72 08/03/2020 3:49 PM CDT Pulse 58 08/03/2020 3:05 PM CDT Temperature 36.9 ??C (98.5 ??F) 06/11/2019 1:14 PM CS T Respiratory Rate 16 07/31/2017 10:41 AM CDT Oxygen Saturation 100% 08/03/2020 3:05 PM CDT Inhaled Oxygen Concentration - - Weight 66.9 kg (147 lb 6.4 oz) 08/03/2020 3:05 P M CDT Height 160 cm (5' 2.99) 07/22/2020 7:52 AM HOG PUSHER Body Mass Index 26.12 07/22/2020 7:52 AM HOG PUSHER Plan of Treatment Health Maintenance Due Date Last Done Comments BMI (ht and wt on same day) for age 18+ 07/22/2021 07/22/2020, 06/11/2019, 06/03/2019, Additional history exists Depression screening for age 12+ 07/22/2021 07/22/2020, 11/04/2019, 08/06/2018, Additional history exists Medicare Wellness for age 65+ 07/23/2021 07/22/2020 Mammogram for age 45-75 09/07/2021 09/08/19 21, 09/01/2020, 04/22/2019, Additional history exists Tetanus booster 11/09/2021 11/10/2011, 08/19, 12/19/1994 COVID-19 vaccine series (2022-24 season) 2023 11/22/2021, 03/16/2021, 01/06/2021, Additional history exists Colonoscopy through age 75 09/25/202309/24, 09/24/2018, 09/24/2018, Additional history exists Influenza for age 65+ 01/20/2024 02/25/2020 , 02/25/2020, 02/13/2019, Additional history exists Lipids for age 45-75 07/22/2025 07/22/2020, 07/14/2016, 03/16/2011, Additional history exists Tdap Completed 11/10/2011 Hepatitis C screening for ag e 18-79 Completed 03/08/2012 Zoster (shingles) series for age 50+ Completed 04/21/2019, 01/14/2019, 01/31/2017 Pneumococcal series for age 65+ Completed , 01/14/2019 DEXA/DXA scan for age 65+ Completed 08/17/2020, Procedures Procedure Name Priority Date/Time Associated Diagnosis Comments XR MAMMO RADHA UNI ADDL VIEWS LEFT Routine 09/07/2020 9:16 AM CDT Abnormal mammogram XR DXA BONE DENSITY 2 SITES AXIAL Routine 08/17/2020 8:54 AM CDT Menopause LIPID PANEL W REFLEX MEASURED LDL Routine 07/22/2020 9:18 AM HOG PUSHER Screening cholesterol level COLONOSCOPY 09/24/2018 2:55 PM CDT ANTI HCV Routine 03/08/2012 11:06 AM CDT Need for hepatitis C screening test from Last 3 Months or Most Recently Relevant to Health Maintenance Results * XR MAMMO RADHA UNI ADDL VIEWS LEFT (09/07/2020 9:16 AM CDT) Anatomical Region Laterality Modality BREASTS, Breast Left Mammography Impressions 09/07/2020 12:58 PM CDT ??No evidence for malignancy. ?? RECOMMENDATION: ??Recommend annual screening mammography. Results and recommendations were discussed with the patient at the time of the exam. ?? BI-RADS Category 1: Negative Juany Mathur M.D. ? Body/Breast Radiologist [email or web address] SBV/rcd Narrative 09/07/2020 12:58 PM CDT PATIENTS: You will also receive a letter with your examination results in an easy to read format. ??If you have questions about your results, please contact your referring provider. LEFT DIGITAL DIAGNOSTIC MAMMOGRAM ADDITIONAL VIEWS WITH TOMOSYNTHESIS, 09/07/2020 CLINICAL HISTORY: ??Asymmetry in upper LEFT breast on screening mammogram. ?? COMPARISON: ??09/01/2020, 04/22/2019, 04/17/2018 and 02/13/2017. ?? TECHNIQUE: ??These mammographic images have been obtained using digital technique. ??Tomosynthesis was also used to interpret the study. ?? BREAST COMPOSITION: ??The breasts are heterogeneously dense, which may obscure small masses. FINDINGS: ??Dissipation of asymmetry with additional views. Jenelle Orozco MD MAMMO * XR DXA BONE DENSITY 2 SITES AXIAL (08/17/2020 8:54 AM CDT) Anatomical Region Laterality Modality Spine, HIPS, HIPL, HIPR Other Impressions 08/17/2020 4:49 PM CDT Normal bone density. RECOMMENDATIONS: The National Osteoporosis Foundation recommends pharmacologic treatment for patients with T-scores of -2.5 or less, patients with prior history of fragility fractures, or patients with 10-year probability of greater than 3% at hips or greater than 20% of suffering major osteoporotic fractures. Recommend continued optimization of calcium and vitamin D intake through dietary means and/or supplementation and regular exercise. Repeat scan recommended in 3-5 years. Destiny Bae PA-C [facility] 08/17/2020 Narrative 08/17/2020 4:49 PM CDT XR DXA Bone Mineral Density (BMD) EXAM LOCATION: [facility] [address] [address] PATIENT NAME: Karyna Willis DATE OF : 1955 EXAM DATE: 08/17/2020 REQUESTING PROVIDER: Jenelle Orozco MD GENDER AT : female HEIGHT: 5' 2.99 (07/22/2020) WEIGHT: ??147 lb 6.4 oz (08/03/2020) MENOPAUSAL STATUS: Postmenopausal RACE/ETHNICITY: White RISK FACTORS: FAMILY HISTORY OF OSTEOPOROSIS and kidney disease CURRENT MEDICATION FOR BONE LOSS: NONE INDICATION: SCREENING FOR OSTEOPOROSIS COMPARISON DATE(S): 2012 DXA scans are compared to prior studies for a patient only when the two (or more) studies were performed on the same scanner. It is not possible to compare data generated on one scanner to data from another because there are not standards in DXA equipment. This applies even if the two scanners are made by the same qa internship. PROCEDURE: Dual-energy x-ray absorptiometry performed with routine technique. Reporting is completed in the form of a T-score. The T-score represents the standard deviation from peak bone mass based on young healthy adult. A Z-score is used for diagnosis in premenopausal women, and for men under the age of 50. FINDINGS: RESULT LUMBAR SPINE L1 - L4 BMD: 1.129 g/cm2 T-Score: -0.4 Z-Score: 1.2 Comparison to most recent scan in 2013: ??Decrease -11.0%. RESULT FEMORAL NECK Left Total Femoral Neck BMD: 0.958 g/cm2 T-Score: -0.6 Z-Score: 1.0 RESULT TOTAL HIP Bilateral Total Hip BMD: 1.007 g/cm2 T-Score: 0.0 Z-Score: 1.3 Comparison to most recent scan in 2013: ??Decrease -17.2%. WHO criteria: Normal: T-score at or above -1 SD Osteopenia: T-score between -1.1 and -2.4 SD Osteoporosis: T-score at or below -2.5 SD Jenelle Orozco MD DEXA * (ABNORMAL) LIPID PANEL W REFLEX MEASURED LDL (07/22/2020 9:18 AM HOG PUSHER) CHOLESTEROL,TOTAL 225(H) 100 - 199 mg/dL 07/22/2020 3:34 PM HOG PUSHER [facility] TRIGLYCERIDES 137 <150 mg/dL 07/22/2020 3:34 PM HOG PUSHER [facility] HDL CHOLESTEROL 52 >40 mg/dL 3:34 PM HOG PUSHER [facility] NON-HDL CHOLESTEROL 173(H) <145 mg/dl 07/22/2020 3:34 PM HOG PUSHER [facility] CHOL/HDL RATIO 4.33 <4.50 07/22/2020 3:34 PM HOG PUSHER [facility] LDL CHOLESTEROL 146(H) <=130 mg/dL 07/22/2020 3:34 PM HOG PUSHER [facility] PROVIDER ORDERED STATUS RANDOM 07/22/2020 3:34 PM HOG PUSHER [facility] Blood BLOOD SPECIMEN / Unknown Venipuncture / Unknown 07/22/2020 9:18 AM HOG PUSHER 07/22/2020 9:18 AM HOG PUSHER Jenelle Orozco MD CHEMISTRY [facility] [address] [place] [address], * COLONOSCOPY (09/24/2018 2:55 PM CDT) 09/24/2018 2:55 PM CDT Narrative Transcriptions Jameson Harper MD - 09/24/2018 4:07 PM CDT Patient Name: Karyna Willis Procedure Date: 09/24/2018 Gender: Female Date of : 1955 Admit Type: Outpatient Procedure: Colonoscopy Proceduralist: Jameson Harper MD , Donita Marin (Nurse) Indications/Pre-Op Diagnosis: Surveillance: Personal history ofadenomatous polyps on last colonoscopy 5 years ago, Last colonoscopy: July 2013 Medications: Fentanyl 100 micrograms IV, Midazolam 3 mgIV, The level of sedation administered wasmoderate Procedure Description: The patient had risks, benefits and alternatives explained to andgave informed consent. The patient had a stable cardiopulmonary status and judged an adequate candidate for conscious sedation. The Colon [id number] was passed through the anus and advancedto the cecum, identified by appendiceal orifice and ileocecal valve. The colonoscopy was performed without difficulty. The patient toleratedthe procedure well. The quality of the bowel preparation was excellent.The ileocecal valve, appendiceal orifice, and rectum were photographed. Complications: No immediate complications. Estimated Blood Loss & Specimen: Estimated blood loss: none. Specimen collected - None Findings: The perianal and digital rectal examinations were normal. The colon (entire examined portion) was moderately redundant. The exam was otherwise without abnormality on direct and retroflexion views. Impressions/Post-Op Diagnosis: - Redundant colon. - The examination was otherwise normal on direct and retroflexionviews. - No specimens collected. Recommendation: - Patient has a contact number available for emergencies. The signsand symptoms of potential delayed complications were discussed with the patient. Return to normal activities tomorrow. Written discharge instructions were provided to the patient. - Resume previous diet. - Continue present medications. - Repeat colonoscopy in 5 years for surveillance. Moderate Sedation: Moderate (conscious) sedation was administered by the endoscopy nurse and supervised by the endoscopist. The following parameters were monitored: oxygen saturation, heart rate, respiratory rate, blood pressure, adequacy of pulmonary ventilation and reponse to care. Please refer to the patien'ts medical record flowsheets and nursing notes for moderate sedation details. Total physician intraservice time was 20 minutes. Jameson Harper MD 09/24/2018 4:07:15 PM This report has been signed electronically. Note Initiated On: 09/24/2018 2:55 PM Procedure Code(s): --- Professional --- 46539, Colonoscopy, flexible; diagnostic, including collection of specimen(s) bybrushing or washing, when performed (separateprocedure) Diagnosis Code(s): --- Professional --- Z86.010, Personal history of colonicpolyps Q43.8, Other specified congenitalmalformations of intestine CPT copyright 2017 [employer]. All rights reserved. The codes documented in this report are preliminary and upon histopathology technician reviewmay be revised to meet current compliance requirements. Scope In: 3:45:53 PM Scope Withdrawal Time 0 hours 7 minutes 44 seconds Scope Out: 4:03:21 PM Jameson Harper MD PROCEDURE ORD * ANTI HCV (03/08/2012 11:06 AM CDT) ANTI HCV Non-reacti ve [facility] Blood specimen (specimen) BLOOD SPECIMEN / Unknown 03/08/2012 11:06 AM CDT 03/08/2012 11:00 AM CDT Germain Javier MD SEND OUTS [facility] INTERNAL ZIP [id number] [place], [place] [phone] from Last 3 Months or Most Recently Relevant to Health Maintenance Care Teams Book Repairer Relationship Specialty Start Date End Date Ivana Bains MD [address] [place] [address] PCP - General Internal Medicine 04/12/22
--- OUTSIDE RECORDS SUMMARY | 2023-09-08 13:24 | XMS_ITS | Referral Summary ---
Author Name Unknown Organization [facility] Address [address] [place] [address] Care Team Providers Care Packing Inspector Name Role Phone Unavailable Primary Care Provider Unavailabl e Source Comments Patient records contain information from all sites at [facility]. For routine questions regarding patient records, call [phone] during business hours, M-F 8:00 AM - 5:00 PM Central Time. Record requests for emergency care only can be directed to [phone] at any time.[facility] Encounters Date Type Department Care Team Description 4 6:38 AM CDT - 4 11:59 PM CDT Hospital Encounter Department of Laboratory Medicine and Pathology, [place], [place] [address] [place] [phone] Tramaine Hope M.D. Chronic Kidney Disease (CKD), Stage 3a Glomerular Filtration Rate (GFR) 45 To 59 (HCC) Discharge Disposition: Home or Self Care 4 6:38 AM CDT - 4 11:59 PM CDT Hospital Encounter Department of Laboratory Medicine and Pathology, [facility] in [place], [place] [address] [place] [address] Tramaine Hope M.D. Chronic Kidney Disease (CKD), Stage 3a Glomerular Filtration Rate (GFR) 45 To 59 (HCC); Hypocholesterolemia Discharge Disposition: Home or Self Care 4 10:00 AM CDT Office Visit Division of Nephrology and Hypertension in [place], [place] [address] [place] [address] Tramaine Hope M.D. Hypocholesterolemia (Primary Dx); Hypertension And Chronic Kidney Disease Stage 1 To 4 4 Clinical Communication Department of Urology in [place], [place] [address] [place] [phone] Edy Silverio M.D. Pre-visit Testing Orders (Prior to follow up CT) 4 Orders Only Division of Gastroenterology in [place], [place] [address] [place] [phone] Mak Edouard M.D. 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 More than 4 times per year 09/22/2022 Do you belong to any clubs o r organizations such as scientologist groups, unions, fraternal or athletic groups, or [...] Answer Date Recorded PHQ-2 Score 1 04/08/2019 [facility] - Occupational [...] money to buy more. Never true 09/23/19 23 Within the past 12 months, t he [...] slept in a care home (including now)? No 09/22/2022 Nutrition Answer Date [...] Sex Assigned at Female 05/10/2018 8:56 AM LEATHER HEEL BREASTER Gender Identity Female 05/10/2018 8:56 AM LEATHER HEEL BREASTER Sexual Orientation Straight 05/10/2018 8: 56 AM LEATHER HEEL BREASTER Last Filed Vital Signs Vital Sign Reading Time Taken Comments Blood Pressure 143/72 08/08/2023 9:51 AM CDT Pulse 66 08/08/2023 9:51 AM CDT Temperature 36 ??C (96.8 ??F) 08/08/2023 9:51 AM CDT Respiratory Rate 16 07/07/2018 4:47 AM LEATHER HEEL BREASTER Oxygen Saturation 97% 03/26/2019 8:14 AM LEATHER HEEL BREASTER Inhaled Oxygen Concentration - - Weight 62.5 kg (137 lb 12.6 oz) 08/08/2023 9:51 AM CDT Height 159.4 cm (5' 2.76) 08/08/2023 9:51 AM CD T Body Mass Index 24.6 08/08/2023 9:51 AM CDT Plan of Treatment Upcoming Encounters Date Type Department Care Team (Latest Contact Info) Description 09/21/2023 7:45 AM CDT Clinical Communication Virtual Review in [address] [phone] 09/25/2023 8:30 AM CDT Appointment Department of Laboratory Medicine and Pathology, [facility] in [place], [place] [address] [place] [address] Sarah Ruffin APRN, C.N.P., D.N.P. [address] [place] [phone] 09/25/2023 12:00 PM CDT Appointment Department of Radiology, [facility] in [place], [place] [address] [place] [address] Sarah Ruffin APRN, Rizwana.N.P., D.N.P. [address] [place] [phone] 09/26/2023 9:30 AM CDT Office Visit Department of Urology in [place], [place] [address] [place] [phone] Sarah Ruffin APRN, C.N.P., D.N.P. [address] [place] [phone] Medical Devices Implanted Type Area Director Cardiovascular Device Identifier Shelf Expiration Date Model / Serial / Lot Clp Hrzn Ti 6 Clp Md-Lg Grn - Sna - [id number] Implanted:Qt y: 1 on 07/02/2018 by Edy Silverio M.D. at [facility] Hardware e.g. pins/screws /rods Right: Abdomen Weck (Div of [employer]) 3200 / NA / Clp Hrzn Ti 6 Clp Clem - Sna - [id number] 2 Implanted:Qt y: 1 on 07/02/2018 by Edy Silverio M.D. at [facility] Hardware e.g. pins/screws /rods Right: Abdomen [employer] 139312 / NA / Clp Hrzn Ti 6 Clp Lg Orng - Sna - [id number] 2 Implanted:Qt y: 1 on 07/02/2018 by Edy Silverio M.D. at [facility] Hardware e.g. pins/screws /rods Right: Abdomen Weck (Div [employer]) 4200 / NA / Clp Hrzn Ti 6 Clp Clem - S0000 - [id number] 2 Implanted:Qt y: 1 on 07/02/2018 by Edy Silverio M.D. at [facility] Hardware e.g. pins/screws /rods [employer] [id number] 02/05/2023 [id number] / 0000 / [id number] Procedures Procedure Name Priority Date/Time Associated Diagnosis Comments DIPSTICK, U Routine 08/08/2023 7:03 AM CDT VA OSMOLALITY ASSAY URINE Routine 08/08/2023 7:03 AM [...] 7:03 AM CDT 08/08/2023 7:15 AM CDT Tarmaine Hope M.D. LAB URINE ORDERABLES Performing Organization Address City/[facility] Co de Phone Number [address] [address], [facility] [address] [address] * (ABNORMAL) Dipstick, Urine (08/08/2023 7:03 AM [...] M.D. LAB URINE ORDERABLES Performing Organization Address City/[facility]/ZIP Co de Phone Number [address] [address], [facility] [address] [address] * pH, Random, Urine (08/08/2023 7:03 AM CDT) pH, Random, U 6.5 4.5 - 8.0 08/08/2023 7:33 AM CDT DTL Urine 08/08/2023 7:03 AM CDT 08/08/2023 7:15 AM CDT Tramaine Hope M.D. LAB URINE ORDERABLES Performing Organization Address [facility] Co de Phone Number [facility] [address] [place] [address] * Microscopic Manual (08/08/2023 7:03 AM CDT) Pathologist [facility] Microscopy Normal 08/08/2023 8:22 AM CDT DTL RBC <3 <3 /hpf 08/08/2023 8:22 AM CDT DTL WBC None Seen /hpf 08/08/2023 8:22 AM CDT DTL Comment: ----REFERENCE VALUE---- <4 ??(Males) <11 (Females) Urine 08/08/2023 7:03 AM CDT 08/08/2023 7:15 AM CDT Tramaine Hope M.D. LAB URINE ORDERABLES Performing Organization Address [facility] Co de Phone Number [address] [place] [address] * Albumin, Random, Urine (08/08/2023 7:03 AM CDT) Albumin, Random, U <5.0 mg/L 2023 11:27 AM CDT DTL Comment: ----ADDITIONAL INFORMATION---- This test has been modified from the full stack web developer's instructions. Its performance characteristics were determined by [facility] in a manner consistent with CLIA requirements. [...] M.D. LAB URINE ORDERABLES Performing Organization Address [facility]/ZIP Co de Phone Number [facility] [address] [place] [address], [facility] 200 [place] [address] * Urinalysis, with Microscopic: Urine, Midstream (08/08/2023 [...] M.D. LAB URINE ORDERABLES Performing Organization Address [facility]/ZIP Co de Phone Number [facility] [employer] [facility] [address] [place], [place] [address] DTL [facility] [address] [place] [address] * Lipid Panel (08/08/2023 6:53 AM CDT) [...] CDT Tramaine Hope M.D. LAB BLOOD ADD-ON [facility] [address] [place] [address], [facility] DTL [facility] [address] [place] [address] * (ABNORMAL) Renal Function Panel (08/08/2023 6:53 AM CDT) Potassium, S 3.9 3.6 - 5.2 mmol/L [...] CDT Tramaine Hope M.D. LAB BLOOD ADD-ON [facility] [address] [place] [address], [facility] DTL [facility] [address] [place] [address] * CBC with Differential, Blood (08/08/2023 6:53 [...] CDT Tramaine Hope M.D. LAB BLOOD ADD-ON [facility] [address] [place] [address], [facility] DTL [facility] [address] [place] [address] [facility] [address] [place] [address] * BI Breast Screening Bilateral with Tomosynthesis [...] Mali Gonzalez M.D., Ph.D. IMG BI PROCE VÍCTOR from Last 3 Months or Most Recently Relevant to Health Maintenance Advance Directives For more information, please contact: [phone] * Full Code (Latest Code Status on File) Date Activated Date Inactivated Comments 07/02/2018 8:58 PM 07/07/2018 4:51 PM Question Answer Comments Full Code: Discussed * Full Code Date Activated Date Inactivated Comments 07/02/2018 8:32 AM 07/02/2018 8:58 PM Question Answer Comments Full Code: Discussed
--- OUTSIDE RECORDS SUMMARY | 2023-09-08 13:24 | XMS_ITS | Encounter Summary ---
Author Name Unknown Organization [facility] Address [address] [place] [address] Care Team Providers Care Tax Clerk Name Role Phone Unavailable Primary Care Provider Unavailabl e Encounter Details Date Type Department Care Team (Latest Contact Info) Description 08/08/2023 6:38 AM CDT - 08/08/2023 11:59 PM CDT Hospital Encounter Department of Laboratory Medicine and Pathology, [facility] in [place], [place] [address] [place] [address] Tramaine Hope M.D. [address] [place] [phone] Chronic Kidney Disease (CKD), Stage 3a Glomerular Filtration Rate (GFR) 45 To 59 (HCC); Hypocholesterolemia Discharge Disposition: Home or Self Care Social [...] 09/22/2022 How often do you attend chur ch or jehovah's witness services? More than 4 times per year 09/22/2022 Do you belong to any clubs o r organizations such as restorationist groups, unions, fraternal [...] Answer Date Recorded PHQ-2 Score 1 04/08/2019 [facility] - Occupational Stress [...] a [place] facility (including now)? No 09/22/2022 Nutrition Answer Date [...] Sex Assigned at Female 05/10/2018 8:56 AM MAILING MACHINE OPERATOR Gender Identity Female 05/10/2018 8:56 AM MAILING MACHINE OPERATOR Sexual Orientation Straight 05/10/2018 8: 56 AM MAILING MACHINE OPERATOR documented as of this encounter Medications at [...] AM CDT Clinical Communication Virtual Review in [address] [phone] 09/25/2023 8:30 AM CDT Appointment Department of Laboratory Medicine and Pathology, [facility] in [address] [address] Sarah Ruffin APRN, C.N.P., D.N.P. [address] [place] [phone] 09/25/2023 12:00 PM CDT Appointment Department of Radiology, [facility], in [address] [phone] Sarah Ruffin APRN, C.N.P., D.N.P. [address] [place] [phone] 09/26/2023 9:30 AM CDT Office Visit Department of Urology in [address] [phone] Sarah Ruffin APRN, C.N.P., D.N.P. [address] [place] [phone] documented as of this encounter Procedures Procedure Name Priority Date/Time Associated Diagnosis Comments LIPID PANEL, S Routine 08/08/2023 6:53 AM CDT Chronic Kidney Disease (CKD), Stage 3a Glomerular Filtration Rate (GFR) 45 To 59 (HCC) Hypocholesterolemia RENAL FUNCTION PANEL, S Routine 08/08/2023 6:53 AM CDT Chronic Kidney Disease (CKD), Stage 3a Glomerular Filtration Rate (GFR) 45 To 59 (HCC) CBC WITH DIFFERENTIAL, B Routine 08/08/2023 6:53 AM CDT Chronic Kidney Disease (CKD), Stage 3a Glomerular Filtration Rate (GFR) 45 To 59 (HCC) documented in this encounter Results * Lipid Panel (08/08/2023 6:53 AM CDT) [...] Tramaine Hope M.D. LAB BLOOD ADD-ON [facility] [address] [place] [address], [facility] DTL [facility] [address] [place] [address] * (ABNORMAL) Renal Function Panel (08/08/2023 6:53 [...] Tramaine Hope M.D. LAB BLOOD ADD-ON [facility] [address] [place] [address], [facility] DTL [facility] [address] [place] [address] * CBC with Differential, Blood (08/08/2023 6:53 [...] CDT Tramaine Hope M.D. LAB BLOOD ADD-ON [facility] 200 [place] [address], [facility] DTL [facility] 200 [place] [address] [facility] 200 [place] [address] documented in this encounter Visit Diagnoses Diagnosis Chronic Kidney Disease (CKD), Stage 3a Glomerular Filtration Rate (GFR) 45 To 59 (HCC) Hypocholesterolemia documented in this encounter
--- OUTSIDE RECORDS SUMMARY | 2023-09-08 13:25 | XMS_ITS | Encounter Summary ---
Author Name Unknown Organization [facility] Address [address] [place] [address] Care Team Providers Care Japanese Interpreter Name Role Phone Unavailable Primary Care Provider Unavailabl e Reason for Visit * Reason Onset Date Comments Pre-visit Testing Orders 07/24/2023 Prior t o follow up CT Encounter Details Date Type Department Care Team (Latest Contact Info) Description 07/24/2023 Clinical Communication Department of Urology in [place], [place] [address] [place] [phone] Edy Silverio M.D. [address] [place] [phone] Pre-visit Testing Orders (Prior to follow up CT) Social History Tobacco Use Types Packs/Day Years [...] any clubs o r organizations such as gnosticism groups, unions, fraternal or athletic groups, or [...] Answer Date Recorded PHQ-2 Score 1 04/08/2019 [facility] - Occupational Stress [...] or slept in a long-term (including now)? No 09/22/2022 Nutrition Answer Date [...] Sex Assigned at Female 05/10/2018 8:56 AM REFRACTORY FURNACE DESIGNER Gender Identity Female 05/10/2018 8:56 AM REFRACTORY FURNACE DESIGNER Sexual Orientation Straight 05/10/2018 8: 56 AM REFRACTORY FURNACE DESIGNER documented as of this encounter Plan of Treatment Upcoming Encounters Date Type Department Care Team (Latest Contact Info) Description 09/21/2023 7:45 AM CDT Clinical Communication Virtual Review in [place], [place] [address] [place] [address] 09/25/2023 8:30 AM CDT Appointment Department of Laboratory Medicine and Pathology, [facility], in [place], [place] [address] [place] [address] Sarah Ruffin APRN, C.N.P., D.N.P. [address] [place] [phone] 09/25/2023 12:00 PM CDT Appointment Department of Radiology, [facility], in [place], [place] [address] [place] [phone] Sarah Ruffin APRN, C.N.PJennifer, D.N.P. [address] [place] [phone] 09/26/2023 9:30 AM CDT Office Visit Department of Urology in [place], [place] [address] [place] [phone] Sarah Ruffin APRN, Rizwana.N.P., D.N.P. [address] [place] [phone] Scheduled Orders Name Type Priority Associated Diagnoses Orde r Schedule Creatinine with Estimated GFR Lab Routine Carcinoma Renal Cell Right (HCC) Expected: 09/25/2023, Expires: 10/23/2024 documented as of this encounter Visit Diagnoses Diagnosis Carcinoma Renal Cell Right (HCC)- Primary documented in this encounter
--- OUTSIDE RECORDS SUMMARY | 2023-09-08 13:25 | XMS_ITS | Encounter Summary ---
Author Name Unknown Organization [facility] Address [address] [place] [address] Care Team Providers Care Production Line Welder Name Role Phone Unavailable Primary Care Provider Unavailabl e Encounter Details Date Type Department Care Team (Late st Contact Info) Description 07/19/2023 Orders Only Division of Gastroenterology in [place], [place] [address] [place] [phone] Mak Edouard M.D. [address] [place] [address] Genetic Susceptibility To Disease Social History Tobacco Use Types Packs/Day Years [...] often do you attend chur ch or hoahaoism services? More than 4 times per year 09/22/2022 Do you belong to any clubs o r organizations such as adventist groups, unions, fraternal [...] Answer Date Recorded PHQ-2 Score 1 [facility]08[facility] Questionnaire Answer Date Recorded [...] or slept in a correction (including now)? No 09/22/2022 Nutrition Answer Date [...] Sex Assigned at Female 05/10/2018 8:56 AM KOSHER DIETARY SERVICE SUPERVISOR Gender Identity Female 05/10/2018 8:56 AM KOSHER DIETARY SERVICE SUPERVISOR Sexual Orientation Straight 05/10/2018 8: 56 AM KOSHER DIETARY SERVICE SUPERVISOR documented as of this encounter Plan of Treatment Upcoming Encounters Date Type Department Care Team (Latest Contact Info) Description 09/21/2023 7:45 AM CDT Clinical Communication Virtual Review in [place], [place] [address] [place] [address] 09/25/2023 8:30 AM CDT Appointment Department of Laboratory Medicine and Pathology, [facility], in [place], [place] [address] [place] [phone] Sarah Ruffin, ROSEMARIE, C.N.P., D.N.P. [address] [place] [phone] 09/25/2023 12:00 PM CDT Appointment Department of Radiology, [facility], in [place], [place] [address] [place] [address] Sarah Ruffin APRN, C.N.P., D.N.P. [address] [place] [address] 09/26/2023 9:30 AM CDT Office Visit Department of Urology in [place], [place] [address] [place] [address] Sarah Ruffin APRN, C.N.P., D.N.P. [address] [place] [phone] documented as of this encounter Procedures Procedure Name Priority Date/Time Associated Diagnosis Comments EXT TAPESTRY Routine 04/21/2020 12:00 AM KOSHER DIETARY SERVICE SUPERVISOR Genetic Susceptibility To Disease documented in this encounter Results * EXT Tapestry (04/21/2020 12:00 AM KOSHER DIETARY SERVICE SUPERVISOR) Gene Studied BRCA1,BRCA2,MLH1,MSH 2,MSH 6,PMS2,EPCAM,APOB,LDLR,LD LRAP1,PCSK9 12:00 AM KOSHER DIETARY SERVICE SUPERVISOR [place] Genetic Disease Assessed Evaluation of 11 genes associated with Hereditary Breast and Ovarian Cancer, Lozano Syndrome and Familial Hypercholesterolemia. 12:00 AM KOSHER DIETARY SERVICE SUPERVISOR [place] Genetic Analysis Overall Interpretation Negative results through Tapestry do not replace diagnostic testing for patients with a personal or family history of cancer/hypercholesterolem ia due to limitations with methodology. Consider a referral to a genetic counselor for diagnostic testing if warranted. 12:00 AM KOSHER DIETARY SERVICE SUPERVISOR [place] Genetic Analysis Report See Tapestry PDF Report No actionable gene changes were detected in the genes that cause Familial Hypercholesterolemia. The genes tested for this condition were APOB, LDLR, LDLRAP1, and PCSK9.No actionable gene changes were detected in the genes that cause Hereditary Breast and Ovarian Cancer. The genes tested for this condition were BRCA1 and BRCA2.No actionable gene changes were detected in the genes that cause Lozano Syndrome. The genes tested for this condition were MLH1, MSH2, MSH6, PMS2 and EPCAM. Clinical confirmation of actionable variants is advised prior to changing your medical care. Genetic counseling is recommended. This test is not intended to diagnose a disease, determine medical treatment, or tell the user anything about their current state of health. This test is intended to provide users with their genetic information to inform lifestyle decisions and conversations with their doctor. Any diagnostic or treatment decisions should be based on testing and/or other information that your healthcare provider determines to be appropriate for you. DNA extracted from your saliva sample was captured and enriched using a custom set of reagents ([employer] chemistry). Targeted regions were then sequenced using an Illumina DNA sequencing system. Alignment to a modified version of GRCh38 and variant calling were completed using a customized version of [employer] Quest software, requiring 20x coverage for validated variant calls. The test panel is bioinformatically selected from the [employer]. Copy Number Variants (CNVs) were called using a proprietary bioinformatics pipeline that compared the coverage profile of your sample with the coverage profiles of a reference set of other samples. [facility] [employer] then analyzed generated variant data for the exons and 10 bp of flanking intronic sequence (and select tagged intronic variants) of the 11 genes included in [employer] from the [employer] Database. The Analytical Range includes single nucleotide variants (SNVs), indels up to 20 bp in length, and CNVs. Note: CNV sensitivity is limited to events that span two or more exons. For genes involved in Familial Hypercholesterolemia, only variants associated with the condition are reported, while variants associated with other phenotypes such as hypobetalipoproteinemia are not included. Some known complex variants like inversion exon 1-7 in the MSH2 gene (Nathanael inversion) or exons 11-15 of the PMS2 gene are not analyzed or reported. Finally, it is important to note that this assay cannot detect all variants known to increase disease risk. ??Specifically, there are regions that are not covered, such as deep intronic, promoter, homopolymer regions greater than 7 bp, and untranslated regions. 1 12:00 AM [facility] Human Reference Sequence Assembly GRCh38 1 12:00 AM [facility] Saliva (Mouth) 04/21/2020 Mak Edouard M.D. LAB GENETI C TESTING [employer] [id number], [address] [place] [address], [facility] TI[place] [address], [address]. [place] [address] documented in this encounter Visit Diagnoses Diagnosis Genetic Susceptibility To Disease documented in this encounter
--- OUTSIDE RECORDS SUMMARY | 2023-09-08 13:25 | XMS_ITS | Encounter Summary ---
Author Name Unknown Organization [facility] Address [address] [place] [address] Care Team Providers Care County Administrator Name Role Phone Unavailable Primary Care Provider Unavailabl e Reason for Referral * Outpatient (Routine) - Authorized Specialty Diagnoses / Procedures Referred By Karen staton Referred To Contact Nephrology and Hypertension Tramaine Hope M.D. [address] [place] [phone] [facility] Referral ID Status Reason Start Date Expiration Date V isits Requested Visits Authorized [id number] Authorized 08/08/2023 02/06/2025 1 1 Reason for Visit * Reason Comments Chronic Kidney Disease * Outpatient (Routine) - Closed Specialty Diagnoses / Procedures Referred By Karen staton Referred To Contact Nephrology and Hypertension Tramaine Hope M.D. [address] [place] [address] [facility] Referral ID Status Reason Start Date Expiration Date Visits Re quested Visits Authorized [id number] Closed 01/26/2023 01/25/2026 1 1 Encounter Details Date Type Department Care Team (Latest Contact Info) Description 08/08/2023 10:00 AM CDT Office Visit Division of Nephrology and Hypertension in [place], [place] [address] [place] [phone] Tramaine Hope M.D. [address] [place] [phone] Hypocholesterolemia (Primary Dx); Hypertension And Chronic Kidney Disease Stage 1 To 4 Social History Tobacco Use Types Packs/Day Years [...] often do you attend chur ch or latter-day services? More than 4 times per year 09/22/2022 Do you belong to any clubs o r organizations such as protestant groups, unions, fraternal or athletic groups, or [...] Answer Date Recorded PHQ-2 Score 1 04/08/2019 [facility] - Occupational Stress [...] slept in a senior care (including now)? 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 - 08/08/2023 10:00 AM CDT Referring Provider: Tramaine Hope M.D. SUBJECTIVE HISTORY OF PRESENT ILLNESS Ms. Willis is a 68 y.o. female who presents rising creatinine. Patient has a history of CKD and [id number] renal cell carcinoma s/p partial right nephrectomy 07/02/18. Creatinine preop was between 0.87 - 1.02 and increased to 1.33 in 01/07/20. UA's have been normal except for one UTI on 06/03/19.Keflex was prescribed. Patient was having pain on the left side of her face in 10/07 where she had a melanoma excised. Dental X-rays were negative. She was unable to seek medical attention because ofCovid. She did not take any medication but [...] to 2.5 mg daily for hypotension 97/62. Thefollowing week, she had a blood pressure of [...] are total cholesterol dropped from 214 to 182but now is back to 211. She states [...] blood pressure as high as 180 systolic. 02/10: blood pressures are more stable since Lisinopril was changed to bid. Bps are usually in the 120s/70s. She does have some Bps under 110. When it is under 110 systolic, she holds the lisinopril. 08/11: patient is doing okay. She has not been exercising as much and has not been strict with her diet she has been having to take care of her grand children more. Patient has gained 2 kg since January. Current Outpatient Medications: azithromycin (ZITHROMAX) 500 mg tablet, Take 1 tablet (500 mg total) by mouth daily as needed (Traveler's diarrhea) for up to 3 doses. When outside US-STOP if diarrhea stops, Disp: 3 tablet, Rfl: 0 lisinopriL (PRINIVIL,ZESTRIL) 2.5 mg tablet, TAKE 1 TABLET(2.5 MG) BY MOUTH TWICE DAILY, Disp: 180 tablet, Rfl: 3 MULTIVITAMIN ORAL, Take by mouth. 2 gummies daily, Disp: , Rfl: plant stanol toi (Cholest Off Plus) 450 mg capsule, Take 2 capsules by mouth 2 (two) times a day., Disp: , Rfl: psyllium husk (METAMUCIL ORAL), Take 1 each by mouth daily. One tablespoon in 8 ounce of water, Disp: , Rfl: Current Facility-Administered Medications: zkbzqlnzbyr-wwzkxbwfj-OEIFLLPgivh 0.25%-1%-1:200,000 injection 2-50 mL, 2-50 mL, infiltration, PRN,Abelardo Heart M.D., 8 mL at 10/10/18 1520 lidocaine-EPINEPHrine 1%-1:200,000 injection 2-50 mL (XYLOCAINE W/EPI), 2-50 mL, infiltration, PRN,Abelardo Heart M.D., 16 mL at 10/10/18 1520 The following portions of the patient's history were reviewed and updated as appropriate: allergies, current medications, family history, medical history, social history, surgical history and problemlist. REVIEW OF SYSTEMS Constitutional: Positive for fatigue and fever. Eyes: Positive for visual problems. Cardiovascular: Positive for rapid or fluttering heart beat. Gastrointestinal: Positive for diarrhea. Musculoskeletal: - Negative for pain or stiffness in the joints. The following systems were negative: Skin, ENT, Respiratory, Genitourinary, Hematologic, Musculoskeletal, Neurological, Psychiatric OBJECTIVE BP 143/72 (BP Location: Right arm, Patient Position: Sitting) Pulse 66 Temp 36 ??C Ht 159.4 cm Wt 62.5 kg BMI 24.60 kg/m?? PHYSICAL EXAMINATION Constitutional Appearance: Normal appearance. [...] person, place, and time. Deep Tendon Reflexes: Abnormal reflex: Absent at the ankles. Psychiatric Mood and Affect: Mood normal. Behavior: Behavior normal. Thought Content: Thought content normal. Judgment: Judgment normal. DIAGNOSTICS ASSESSMENT / PLAN #1 Chronic Kidney Disease (CKD), Stage 3 Unspecified (HCC) Kidney function is fairly stable. There is no proteinuria by ACR. We did discuss the possibility ofadding a SGLT2 inhibitor. She would like to hold off for now. We will continue to monitor #2 Hypertension Blood pressure is higher. Will increase lisinopril to 2.5 mg in the morning and 5 mg at night. #3 Chromophobe renal cell carcinoma #4 Hypercholesterolemia Her LDL has dropped another 10 point and HDL is stable. Will continue dietary modification and recheck in 6 months. Tramaine Hope M.D. documented in this encounter Plan of Treatment Upcoming Encounters Date Type Department Care Team (Latest Contact Info) Description 09/21/2023 7:45 AM CDT Clinical Communication Virtual Review in [address] [phone] 09/25/2023 8:30 AM CDT Appointment Department of Laboratory Medicine and Pathology, [facility], in [address] [phone] Sarah Ruffin APRN, C.N.P., D.N.P. [address] [place] [phone] 09/25/2023 12:00 PM CDT Appointment Department of Radiology, [facility], in [address] [phone] Sarah Ruffin APRN, C.N.P., D.N.P. [address] [place] [phone] 09/26/2023 9:30 AM CDT Office Visit Department of Urology in [address] [phone] Sarah Ruffin APRN, C.N.P., D.N.P. [address] [place] [address] Scheduled Orders Name Type Priority Associated Diagnoses Orde r Schedule Renal Function Panel Lab Routine Hypocholesterolemia Hypertension And Chronic Kidney Disease Stage 1 To 4 Expected: 02/08/2024 (Approximate), Expires: 08/07/2024 CBC with Differential, Blood Lab Routine Hypocholesterolemia Hypertension And Chronic Kidney Disease Stage 1 To 4 Expected: 02/08/2024 (Approximate), Expires: 08/07/2024 Lipid Panel Lab Routine Hypocholesterolemia Hypertension And Chronic Kidney Disease Stage 1 To 4 Expected: 02/08/2024 (Approximate), Expires: 08/07/2024 Urinalysis, with Microscopic: Urine, Midstream Lab Routine Hypocholesterolemia Hypertension And Chronic Kidney Disease Stage 1 To 4 Expected: 02/08/2024 (Approximate), Expires: 08/07/2024 Scheduled Referrals Name Type Priority Associated Diagnoses Order Schedule Nephrology and Hypertension office visit (clinic) Outpatient Referral Routine Expected: 02/08/2024 (Approximate), Expires: 11/07/2024 documented as of this encounter Visit Diagnoses Diagnosis Hypocholesterolemia- Primary Hypertension And Chronic Kidney Disease Stage 1 To 4 documented in this encounter
[2023-09-08 13:31] LABS: Basophils Absolute Auto 0.02 K/uL (0.00-0.30); Basophils Percent Auto 0.4 % (0.0-3.0); Eosinophils Absolute Auto 0.07 K/uL (0.00-0.50); Eosinophils Percent Auto 1.4 % (0.0-7.0); Hematocrit 41.4 % (33.0-51.0); Hemoglobin* 13.7 gm/dL (12.0-16.0); Immature Granulocytes Abs Auto 0.01 K/uL (0.00-0.30); Immature Granulocytes Pct Auto 0.2 %; Lymphocytes Percent Auto 16.4 % (20-44); Mean Corpuscular HGB Conc 33 gm/dL (32-36); Mean Corpuscular Hemoglobin 30 pg (26-34); Mean Corpuscular Volume 90 fL (80-100); Monocytes Percent Auto 4.8 % (0.0-11.0); Neutrophils Percent Auto 76.8 % (42.0-72.0); Platelet Count* 184 K/uL (140-440); RDW Coefficient of Variation % 12.9 % (11.5-15.5); Red Blood Count 4.62 m/uL (4.00-5.20); White Blood Count* 5.01 K/uL (4.50-11.00)
[2023-09-08 13:35] LABS: Slide Review Reflex No
[2023-09-08 13:44] LABS: Chloride* 111 mmol/L (96-114); Potassium* 3.8 mmol/L (3.6-5.1); Sodium* 142 mmol/L (135-149)
[2023-09-08 13:47] LABS: Anion Gap 5 mEq/L (7-15); Blood Urea Nitrogen* 15 mg/dL (7-30); Carbon Dioxide* 26 mmol/L (20-32); Creatinine* 0.9 mg/dL (0.5-1.5); Estimated Glomerular Filt Rate 69 ml/min
[2023-09-08 13:48] LABS: Calcium* 9.4 mg/dL (8.4-10.6); Glucose* 90 mg/dL (60-115)
[2023-09-08 14:01] VITALS: BP 156/83; PULSE 92; RESP 18; O2SAT 99
== END 2023-09-08 14:37 | disposition home or self-care (01) ==
PROVIDERS: Emergency Provider Emergency Medicine Emergency Medical Services; PCP Internal Medicine
DX: Z71.1 Person with feared health complaint in whom no diagnosis is made (principal)
CPT/HCPCS: 36415; 80048; 84484; 85025; 93005; 99284

== ENCOUNTER 2023-10-03 20:37 | Emergency (ER) | payer MEDICARE, SELFPAY ==
--- NOTE | 2023-10-03 20:39 | ED.GENADULT ---
HPI - General Adult General Date Seen: 10/03/23 Stated complaint: Bat bite Time Seen by Provider: 10/03/23 20:38 Related Data Home Medications Medication Instructions Recorded Confirmed multivitamin (Multiple Vitamins 1 tab PO QAM 02/02/22 09/28/23 tablet) psyllium husk 3.4 gram/5.4 gram 1 tsp PO DAILY 02/02/22 09/28/23 oral powder calcium 650 mg-vitamin D3 12.5 tab PO 09/21/23 09/28/23 mcg-vitamin K 40 mcg chewable tablet (Viactiv) lisinopril 2.5 mg tablet 2.5 mg PO BID 09/21/23 09/28/23 Previous Rx's Medication Instructions Recorded amoxicillin 875 mg tablet 875 mg PO BID #20 tabs 09/28/23 budesonide-formoterol HFA 80 2 puff inhalation BID #10.2 grams 09/28/23 mcg-4.5 mcg/actuation aerosol inhaler (Symbicort) Allergies Allergy/AdvReac Type Severity Reaction Status Date / Time hydrochlorothiazide Allergy Unknown Unknown Verified 09/28/23 15:05 pantoprazole Allergy Unknown Unknown Verified 09/28/23 15:05 polyethylene glycol Allergy Unknown loose Verified 09/28/23 15:05 stools Proton Pump Inhibitors Allergy Unknown Unknown Verified 09/28/23 15:05 PFSH PFS Surgical History History of surgical removal of ganglion cyst (11/19/11) ?Z98.890 - Other specified postprocedural states (ICD-10) History of partial nephrectomy (07/02/18) ?Z90.5 - Acquired absence of kidney (ICD-10) History of malignant melanoma of skin (10/10/18) ?Z85.820 - Personal history of malignant melanoma of skin (ICD-10) History of inguinal hernia ?Z87.19 - Personal history of other diseases of the digestive system (ICD-10) History of hysterectomy (12/2004) ?Z90.710 - Acquired absence of both cervix and uterus (ICD-10) History of benign breast biopsy (2003) ?Z98.890 - Other specified postprocedural states (ICD-10) Social History Smoking Status: Never smoker Do you use any of these nicotine containing products: None Second hand tobacco smoke exposure: No How often do you have a drink containing alcohol: never AUDIT-C Alcohol total score: 0 Non-prescribed substance use: denies use Little interest or pleasure in doing things: not at all Feeling down, depressed, or hopeless: not at all Discharge Plan Discharge Prescriptions: No Action multivitamin [Multiple Vitamins] Tablet 1 tab PO QAM psyllium husk 3.4 gram/5.4 gram powder 1 tsp PO DAILY budesonide-formoterol [Symbicort] 80-4.5 mcg/actuation HFA aerosol inhaler 2 puff inhalation BID Qty: 10.2 1RF amoxicillin 875 mg tablet 875 mg PO BID Qty: 20 0RF calcium-vitamin D3-vitamin K [Viactiv] 650 mg-12.5 mcg-40 mcg tablet,chewable PO lisinopril 2.5 mg tablet 2.5 mg PO BID Rx Instructions: 2.5 mg in AM and 5mg at PM Follow Up/Referrals: Ivana Bains MD [Primary Care Provider] -
[2023-10-03 21:02] VITALS: BP 144/92; PULSE 81; RESP 20; TEMP 36.5; O2SAT 98
--- NOTE | 2023-10-03 21:05 | ED.GENADULT ---
HPI - General Adult General Chief complaint: Insect Bite Stated complaint: Bat bite Time Seen by Provider: 10/03/23 20:38 History of Present Illness HPI narrative: Of this 68-year-old female comes in with concern of a possibility of a bite by a bat. She was out in the yd earlier today using her hands to scoop up leaves and felt something sharp on her hand and later noticed a bat that did not appear well that was nearby on the deck. She does not see any sign of skin injury. She otherwise has no symptoms and is in good health. Related Data Home Medications Medication Instructions Recorded Confirmed multivitamin (Multiple Vitamins 1 tab PO QAM 02/02/22 10/03/23 tablet) psyllium husk 3.4 gram/5.4 gram 1 tsp PO DAILY 02/02/22 10/03/23 oral powder calcium 650 mg-vitamin D3 12.5 tab PO 09/21/23 09/28/23 mcg-vitamin K 40 mcg chewable tablet (Viactiv) lisinopril 2.5 mg tablet 2.5 mg PO BID 09/21/23 10/03/23 Previous Rx's Medication Instructions Recorded amoxicillin 875 mg tablet 875 mg PO BID #20 tabs 09/28/23 budesonide-formoterol HFA 80 2 puff inhalation BID #10.2 grams 09/28/23 mcg-4.5 mcg/actuation aerosol inhaler (Symbicort) Allergies Allergy/AdvReac Type Severity Reaction Status Date / Time hydrochlorothiazide Allergy Unknown Unknown Verified 10/03/23 21:02 pantoprazole Allergy Unknown Unknown Verified 10/03/23 21:02 polyethylene glycol Allergy Unknown loose Verified 10/03/23 21:02 stools Proton Pump Inhibitors Allergy Unknown Unknown Verified 10/03/23 21:02 Review of Systems Status of ROS: Reports: 10 or more systems reviewed and unremarkable except as noted in History and below Narrative: Constitutional: No fevers, no weight gain or loss. Eyes: No discharge. No vision changes. HENT: No congestion, no sore throat, no ear pain. Cardiovascular: No chest pain, no palpitations. Respiratory: No shortness of breath, no wheezes, no cough. Gastrointestinal: No abdominal pain, no vomiting, no diarrhea. Genitourinary: No dysuria, no hematuria. Musculoskeletal: Normal range of motion. Skin: No rashes, no pruritis. Neurological: No dizziness, weakness, sensory change, speech change. Endo/Heme/Allergies: No bruising or bleeding. No polydipsia. Pysch: no suicidality, no anxiety, no insomnia. All other systems reviewed and are negative. [facility] Surgical History History of surgical removal of ganglion cyst (11/19/11) ?Z98.890 - Other specified postprocedural states (ICD-10) History of partial nephrectomy (07/02/18) ?Z90.5 - Acquired absence of kidney (ICD-10) History of malignant melanoma of skin (10/10/18) ?Z85.820 - Personal history of malignant melanoma of skin (ICD-10) History of inguinal hernia ?Z87.19 - Personal history of other diseases of the digestive system (ICD-10) History of hysterectomy (12/2004) ?Z90.710 - Acquired absence of both cervix and uterus (ICD-10) History of benign breast biopsy (2003) ?Z98.890 - Other specified postprocedural states (ICD-10) Social History Smoking Status: Never smoker Do you use any of these nicotine containing products: None Second hand tobacco smoke exposure: No How often do you have a drink containing alcohol: never AUDIT-C Alcohol total score: 0 Non-prescribed substance use: denies use Little interest or pleasure in doing things: not at all Feeling down, depressed, or hopeless: not at all Exam Narrative: Exam Narrative: Constitutional: Well-developed, well-nourished, no acute distress. HEENT: Normocephalic, atraumatic. Neck: Normal range of motion. Nontender. Supple. Heart: Intact distal pulses. Lungs: No chest discomfort. No wheezes, rhonchi, or rales. Abdomen: Nontender. Back: Normal range of motion. Extremities: Normal range of motion. No injury. Skin: Intact. No rash. Warm. No erythema or pallor. Neurologic: No altered sensation. No weakness. Alert and oriented. Psychiatric: No suicidality. No anxiety or depression. No insomnia. Nursing notes and vitals signs are reviewed. Const: Vital Signs, click to edit/add: Vital Signs - 24 hr 10/03/23 21:02 Temperature 97.7 F Pulse Rate [Femora l] 81 Respiratory Rate 20 Blood Pressure [Ri ght Upper Arm] 144/92 H Pulse Oximetry 98 Oxygen Delivery Me thod Room Air Course Vital Signs Vital signs: Initial Vital Signs Temperature 97.7 F 10/03/23 21:02 Temperature Source Temporal Artery Scan 10/03/23 21:02 Pulse Rate 81 10/03/23 21:02 Pulse Strength 3+ Normal 10/03/23 21:02 Respiratory Rate 20 10/03/23 21:02 Blood Pressure 144/92 H 10/03/23 21:02 Blood Pressure Mean 109 H 10/03/23 21:02 Pulse Oximetry 98 10/03/23 21:02 Oxygen Delivery Method Room Air 10/03/23 21:02 Vital Signs Temperature 97.7 F 10/03/23 21:02 Pulse Rate 81 10/03/23 21:02 Respiratory Rate 20 10/03/23 21:02 Blood Pressure 144/92 H 10/03/23 21:02 Pulse Oximetry 98 10/03/23 21:02 Oxygen Delivery Method Room Air 10/03/23 21:02 Temperature 97.7 F 10/03/23 21:02 Pulse Rate 81 10/03/23 21:02 Respiratory Rate 20 10/03/23 21:02 Blood Pressure 144/92 H 10/03/23 21:02 Pulse Oximetry 98 10/03/23 21:02 Oxygen Delivery Method Room Air 10/03/23 21:02 Medical Decision Making MDM Narrative Medical decision making narrative: This patient found a bat in area or she was working outside and has suspicion that she may have been bit by the bat however there are no signs of skin injury. I explained to her that her risk is likely quite low but the fatality of a rabies infection is 100%. The patient agreed to have the rabies series of immune globulin and vaccinations. This was ordered for her and she received the 1st dosings today. She will return on day 3, day 7, and day 14 to complete the series. Discharge Plan Discharge Clinical Impression: At increased risk for exposure to rabies virus Patient Disposition: Home, Self-Care Condition: Stable Additional Instructions: Return to the emergency department on October 05, October 09, and October 16 for completing this series of rabies vaccinations. Prescriptions: No Action multivitamin [Multiple Vitamins] Tablet 1 tab PO QAM psyllium husk 3.4 gram/5.4 gram powder 1 tsp PO DAILY budesonide-formoterol [Symbicort] 80-4.5 mcg/actuation HFA aerosol inhaler 2 puff inhalation BID Qty: 10.2 1RF amoxicillin 875 mg tablet 875 mg PO BID Qty: 20 0RF calcium-vitamin D3-vitamin K [Viactiv] 650 mg-12.5 mcg-40 mcg tablet,chewable PO lisinopril 2.5 mg tablet 2.5 mg PO BID Rx Instructions: 2.5 mg in AM and 5mg at PM Follow Up/Referrals: Ivana Bains MD [Primary Care Provider] - Stand Alone Forms: GFS IT Info Instructions
--- OUTSIDE RECORDS SUMMARY | 2023-10-03 21:14 | XMS_ITS ---
Author Name Unknown Organization [facility] Address [address] [place] [address] Care Team Providers Care Magazine Supervisor Name Role Phone Unavailable Unavailable Unavailable Surgery Details Not on file Complications Check Surgery Details section. Procedure Estimated Blood Loss Check Surgery Details section. Procedure Findings Check Surgery Details section. Procedure Specimens Taken Check Surgery Details section.
--- OUTSIDE RECORDS SUMMARY | 2023-10-03 21:14 | XMS_ITS | Referral Summary ---
Author Name Unknown Organization [facility] Address [address] [place] [address] Care Team Providers Care Manager Of Sales Name Role Phone Unavailable Primary Care Provider Unavailabl e Source Comments Patient records contain information from all sites at [facility]. For routine questions regarding patient records, call [phone] during business hours, M-F 8:00 AM - 5:00 PM Central Time. Record requests for emergency care only can be directed to [phone] at any time.[facility] Encounters Date Type Department Care Team Description 4 Clinical Communication Division of Nephrology and Hypertension in [place], [place] [address] [place] [address] Tramaine Hope M.D. Med Question 4 Clinical Communication Division of Nephrology and Hypertension in [place], [place] [address] [place] [phone] Tramaine Hope M.D. Covid-Positive in [place] 4 6:38 AM CDT - 4 11:59 PM CDT Hospital Encounter Department of Laboratory Medicine and Pathology, [place], [place] [address] [place] [address] Tramaine Hope M.D. Chronic Kidney Disease (CKD), Stage 3a Glomerular Filtration Rate (GFR) 45 To 59 (HCC) Discharge Disposition: Home or Self Care 4 6:38 AM CDT - 4 11:59 PM CDT Hospital Encounter Department of Laboratory Medicine and Pathology, [facility] in [place], [place] [address] [place] [address] Tramaine Hope M.D. Chronic Kidney Disease (CKD), Stage 3a Glomerular Filtration Rate (GFR) 45 To 59 (HCC); Hypocholesterolemia Discharge Disposition: Home or Self Care 4 10:00 AM CDT Office Visit Division of Nephrology and Hypertension in [place], [place] [address] [place] [address] Tramaine Hope M.D. Hypocholesterolemia (Primary Dx); Hypertension And Chronic Kidney Disease Stage 1 To 4 4 Clinical Communication Department of Urology in [place], [place] [address] [place] [address] Edy Silverio M.D. Pre-visit Testing Orders (Prior to follow up CT) 4 Orders Only Division of Gastroenterology in [place], [place] [address] [place] [address] Mak Edouard M.D. Genetic Susceptibility To Disease [...] of water Active azithromycin (ZITHROMAX) 500 mg tabletIndications:Rizwana russell Travel And Immunization Take 1 tablet (500 [...] mL Ifil As needed 10/10/2018 Acti ve xgxldancnuw-gryjnzacr-KMFOAHZ rine 0.25%-1%-1:200,000 injection 2-50 mL 2 - [...] Injectable 03/08/2012,03/24 Influenza, Unspecified 04/09/2015,2011,03/16/2011,2009 PCV13 01/14/2019 PPSV23 01/22/2020 RSV: respiratory syncytial v irus (AREXVY) recombinant vaccine 02/26/2023 RZV (SHINGRIX) 04/21/2019, 9(Deferred: Other - will get it with primary doctor),01/14/2019 SARS-COV-2 (COVID-19) - KEVIN ZHU (J&J)(Discontinued) 11/22/2021,03/16/2021,01/06/2021 Td Preservative Free (TENIVA C, [...] often do you attend chur ch or gnosticism services? More than 4 times per year 09/22/2022 Do you belong to any clubs o r organizations such as uatsdin groups, unions, fraternal [...] Answer Date Recorded PHQ-2 Score 1 04/08/2019 [facility] - Occupational [...] or slept in a jail (including now)? No 09/22/2022 Nutrition Answer Date [...] Sex Assigned at Female 05/10/2018 8:56 AM PURCHASING CONTRACTING CLERK Gender Identity Female 05/10/2018 8:56 AM PURCHASING CONTRACTING CLERK Sexual Orientation Straight 05/10/2018 8: 56 AM PURCHASING CONTRACTING CLERK Last Filed Vital Signs Vital Sign Reading Time Taken Comments Blood Pressure 143/72 08/08/2023 9:51 AM CDT Pulse 66 08/08/2023 9:51 AM CDT Temperature 36 ??C (96.8 ??F) 08/08/2023 9:51 AM CDT Respiratory Rate 16 07/07/2018 4:47 AM PURCHASING CONTRACTING CLERK Oxygen Saturation 97% 03/26/2019 8:14 AM PURCHASING CONTRACTING CLERK Inhaled Oxygen Concentration - - Weight 62.5 kg (137 lb 12.6 oz) 08/08/2023 9:51 AM CDT Height 159.4 cm (5' 2.76) 08/08/2023 9:51 AM CD T Body Mass Index 24.6 08/08/2023 9:51 AM CDT Plan of Treatment Upcoming Encounters Date Type Department Care Team (Latest Contact Info) Description 10/25/2023 10:15 AM CDT Clinical Communication Virtual Review in [place], [place] 200 [place] [address] 10/26/2023 11:00 AM CDT Appointment Department of Laboratory Medicine and Pathology, [facility] in [address] [address] Sarah Ruffin APRN, C.N.P., D.N.P. [address] [place] [phone] 10/26/2023 1:45 PM CDT Appointment Department of Radiology, [facility] in [address] [address] Sarah Ruffin APRN, C.N.P., D.N.P. [address] [place] [phone] 10/30/2023 10:00 AM CDT Office Visit Department of Urology in [address] [phone] Sarah Ruffin APRN, C.N.P., D.N.P. [address] [place] [phone] Medical Devices Implanted Type Area Wedding Transportation Driver Device Identifier Shelf Expiration Date Model / Serial / Lot Clp Hrzn Ti 6 Clp -Lg Grn - Sna - [id number] Implanted:Qt y: 1 on 07/02/2018 by Edy Silverio M.D. at [facility] Hardware e.g. pins/screws /rods Right: Abdomen Weck (Div of [employer]) 3200 / NA / Clp Hrzn Ti 6 Clp Clem - Sna - [id number] Implanted:Qt y: 1 on 07/02/2018 by Edy Silverio M.D. at [facility] Hardware e.g. pins/screws /rods Right: Abdomen [employer] [id number] / NA / Clp Hrzn Ti 6 Clp Lg Orng - Sna - [id number] Implanted:Qt y: 1 on 07/02/2018 by Edy Silverio M.D. at [facility] Hardware e.g. pins/screws /rods Right: Abdomen Weck (Div of [employer]) 4200 / NA / Clp Hrzn Ti 6 Clp Md Clem - S0000 - [id number] Implanted:Qt y: 1 on 07/02/2018 by Edy Silverio M.D. at [facility] Hardware e.g. pins/screws /rods [employer] [id number] 02/05/2023 [id number] / 0000 / [id number] Procedures Procedure Name Priority Date/Time Associated Diagnosis Comments DIPSTICK, U Routine 08/08/2023 7:03 AM CDT [place] OSMOLALITY ASSAY URINE Routine 08/08/2023 7:03 AM [...] Osmolality, Urine (08/08/2023 7:03 AM CDT) Pathologist [facility] Osmolality, U 228 150 - 1150 mOsm/kg 08/08/2023 7:33 AM CDT DTL Urine 08/08/2023 7:03 AM CDT 08/08/2023 7:15 AM CDT Tramaine Hope M.D. [place] [address], [place] [address] * (ABNORMAL) Dipstick, Urine (08/08/2023 7:03 AM CDT) Pathologist [facility] Hemoglobin, QL, U Negative Negative 08/08/2023 7:24 [...] CDT Tramaine Hope M.D. LAB URINE ORDERABLES [facility] [address] [place] [address], [facility] [address] [place] [address] * pH, Random, Urine (08/08/2023 7:03 AM CDT) pH, Random, U 6.5 4.5 - 8.0 08/08/2023 7:33 AM CDT DTL Urine 08/08/2023 7:03 AM CDT 08/08/2023 7:15 AM CDT Tramaine Hope M.D. LAB URINE ORDERABLES Performing Organization Address City/[facility]/ZIP Co de Phone Number [facility] [address] [place] [address], [facility] [address] [place] [address] * Microscopic Manual (08/08/2023 7:03 AM CDT) Pathologist [facility] Microscopy Normal 08/08/2023 8:22 AM CDT DTL RBC <3 <3 /hpf 08/08/2023 8:22 AM CDT DTL WBC None Seen /hpf 08/08/2023 8:22 AM CDT DTL Comment: ----REFERENCE VALUE---- <4 ??(Males) <11 (Females) Urine 08/08/2023 7:03 AM CDT 08/08/2023 7:15 AM CDT Tramaine Hope M.D. LAB URINE ORDERABLES Performing Organization Address City/[facility]/ZIP Co de Phone Number [facility] [address] [place] [address], [facility] [address] [place] [address] * Albumin, Random, Urine (08/08/2023 7:03 AM CDT) Albumin, Random, U <5.0 mg/L 2023 11:27 AM CDT DTL Comment: ----ADDITIONAL INFORMATION---- This test has been modified from the backup administrator's instructions. Its performance characteristics were determined by [facility] in a manner consistent with CLIA requirements. [...] CDT Tramaine Hope M.D. LAB URINE ORDERABLES [facility] [address] [address], [facility] [address] [address] * Urinalysis, with Microscopic: Urine, Midstream (08/08/2023 [...] CDT Tramaine Hope M.D. LAB URINE ORDERABLES [facility] - [facility] [address] [place] [address], [place] [facility] [address] [place] [address] * Lipid Panel (08/08/2023 6:53 AM CDT) [...] CDT Tramaine Hope M.D. LAB BLOOD ADD-ON [facility] [address] [place] [address], [facility] DTL [facility] [address] [place] [address] * (ABNORMAL) Renal Function Panel (08/08/2023 6:53 [...] CDT Tramaine Hope M.D. LAB BLOOD ADD-ON [facility] [address] [place] [address], [facility] DTL [facility] [address] [place] [address] * CBC with Differential, Blood (08/08/2023 6:53 AM CDT) Pathologist [facility] Hemoglobin 12.9 11.6 - 15.0 g/dL 08/08/2023 [...] CDT Tramaine Hope M.D. LAB BLOOD ADD-ON [facility] [address] [place] [address], [place] DTL [facility] [address] [place] [address] DHPM [facility] [address] [place] [address] * BI Breast Screening Bilateral with Tomosynthesis [...] Advance Directives For more information, please contact: [phone] * Full Code (Latest Code Status on File) Date Activated Date Inactivated Comments 07/02/2018 8:58 PM 07/07/2018 4:51 PM Question Answer Comments Full Code: Discussed * Full Code Date Activated Date Inactivated Comments 07/02/2018 8:32 AM 07/02/2018 8:58 PM Question Answer Comments Full Code: Discussed
--- OUTSIDE RECORDS SUMMARY | 2023-10-03 21:14 | XMS_ITS | Clinical Summary ---
Author Name Unknown Organization [facility] Address [address] [place] [address] Care Team Providers Care Him Clerk Name Role Phone Unavailable Primary Care Provider Unavailabl e Source Comments Patient records contain information from all sites at [facility]. For routine questions regarding patient records, call [phone] during business hours, M-F 8:00 AM - 5:00 PM Central Time. Record requests for emergency care only can be directed to [phone] at any time.[facility] Allergies Active Allergy Reactions Criticality Noted Date [...] mL Ifil As needed 10/10/2018 Acti ve ejfpvlmukdq-jvyttucta-LGJYNWE rine 0.25%-1%-1:200,000 injection 2-50 mL 2 - [...] Communication Division of Nephrology and Hypertension in [place], [place] [address] [place] [address] Tramaine Hope M.D. Med Question 4 Clinical Communication Division of Nephrology and Hypertension in [place], [place] [address] [place] [address] Tramaine Hope M.D. Covid-Positive in [place] 4 10:00 AM CDT Office Visit Division of Nephrology and Hypertension in [place], [place] [address] [place] [address] Tramaine Hope M.D. Hypocholesterolemia (Primary Dx); Hypertension And Chronic Kidney Disease Stage 1 To 4 4 6:38 AM CDT - 4 11:59 PM CDT Hospital Encounter Department of Laboratory Medicine and Pathology, [facility] in [place], [place] [address] [place] [address] Tramaine Hope M.D. Chronic Kidney Disease (CKD), Stage 3a Glomerular Filtration Rate (GFR) 45 To 59 (HCC) Discharge Disposition: Home or Self Care 4 6:38 AM CDT - 4 11:59 PM CDT Hospital Encounter Department of Laboratory Medicine and Pathology, [facility] in [place], [place] [address] [place] [address] Tramaine Hope M.D. Chronic Kidney Disease (CKD), Stage 3a Glomerular Filtration Rate (GFR) 45 To 59 (HCC); Hypocholesterolemia Discharge Disposition: Home or Self Care 4 Clinical Communication Department of Urology in [place], [place] [address] [place] [address] Edy Silverio M.D. Pre-visit Testing Orders (Prior to follow up CT) 4 Orders Only Division of Gastroenterology in [place], [place] [address] [place] [address] Mak Edouard M.D. Genetic Susceptibility To Disease [...] Unexplained Father Mika Dementia Maternal Grandfather R. Sandrae Arthritis Maternal Grandmother A. Devonte Arthritis Mother Mahesh Forrester Breast cancer Mother Mahesh Forrester Colon polyps Mother MJennifer Forrester Hypertension Mother MJennifer Medinas Diabetes Mother's Sister G.Zoe Obesity Mother's Sister G.Zoe Coronary artery disease Paternal Grandfather C. Adams sudden 72? Hypertension Paternal Grandmother R.Adams Stroke Paternal Grandmother R.Adams Colon polyps Sister G. Aler Skin cancer Sister G. Aler Basal-face Relation Name Status Comments Brother Rodney Father Francias Maternal Grandfather R. Wernecke Maternal Grandmother A. Wernecke Mother M. Ricoeks Mother's Sister G.Zoe Paternal Grandfather C. Goeks Paternal Grandmother R.Goeks Sister GJennifer Sibley Social History Tobacco Use Types Packs/Day [...] often do you attend chur ch or baptism services? More than 4 times per year 09/22/2022 Do you belong to any clubs o r organizations such as restorationism groups, unions, fraternal [...] Answer Date Recorded PHQ-2 Score 1 04/08/2019 [facility] - Occupational [...] or slept in a halfway (including now)? No 09/22/2022 Nutrition Answer Date Recorded Nutrition: EVOO Fat Source Yes 09/22 On average, how many serving s of fruits and vegetables do you eat per day (serving size is equal to 1 cup or approximately the size of a tennis ball)? 6-7 09/22/2022 Dental Answer Date Recorded Dental: Regular Dentist Yes 01/04/20 21 Employment Answer Date Recorded Employment status Retired 09/22/2022 Education Answer Date Recorded What is the highest level of school you have completed or the highest degree you have received? Bachelor's degree (e.g., BA, AB, BS) 03/18/2019 Sex and Gender Information Value Date Recorded Sex Assigned at Female 05/10/2018 8:56 AM FOOD SERVICE CASHIER Gender Identity Female 05/10/2018 8:56 AM FOOD SERVICE CASHIER Sexual Orientation Straight 05/10/2018 8: 56 AM FOOD SERVICE CASHIER Last Filed Vital Signs Vital Sign Reading Time Taken Comments Blood Pressure 143/72 08/08/2023 9:51 AM CDT Pulse 66 08/08/2023 9:51 AM CDT Temperature 36 ??C (96.8 ??F) 08/08/2023 9:51 AM CDT Respiratory Rate 16 07/07/2018 4:47 AM FOOD SERVICE CASHIER Oxygen Saturation 97% 03/26/2019 8:14 AM FOOD SERVICE CASHIER Inhaled Oxygen Concentration - - Weight 62.5 kg (137 lb 12.6 oz) 08/08/2023 9:51 AM CDT Height 159.4 cm (5' 2.76) 08/08/2023 9:51 AM CD T Body Mass Index 24.6 08/08/2023 9:51 AM CDT Plan of Treatment Upcoming Encounters Date Type Department Care Team (Latest Contact Info) Description 10/25/2023 10:15 AM CDT Clinical Communication Virtual Review in [place], [place] [address] [place] [address] 10/26/2023 11:00 AM CDT Appointment Department of Laboratory Medicine and Pathology, [facility] in [place], [place] [address] [place] [phone] Sarah Ruffin APRN, C.N.P., D.N.P. [address] [place] [phone] 10/26/2023 1:45 PM CDT Appointment Department of Radiology, [facility] in [place], [place] [address] [place] [phone] Sarah Ruffin APRN, C.N.P., D.N.P. [address] [place], [place] [phone] 10/30/2023 10:00 AM CDT Office Visit Department of Urology in [place], [place] [address] [place] [phone] Sarah Ruffin APRN, C.N.P., D.N.P. [address] [place] [phone] Health Maintenance Due Date Last Done Comments CT Colonography 1955 Cologuard 1955 Hepatitis C Screening 1955 Depression Screening (Annual PHQ-2) 05/21/2023 Fall Risk Screen (Annual) 05/21/2023 COVID-19 Vaccine (2022-06 4 season) 2023 03/14/2023, 11/22/2021, 03/16/2021, Additional history exists Colonoscopy 09/25/2023 09/24/2018, 08/2018 (Performed elsewhere), 08/02/2018, Additional history exists Colorectal Cancer Surveillance 09/25/2023 Office Visit for Blood Press ure Check / Re-check 11/08/2023 08/08/2023 Mammogram 02/27/2024 02/26/2023, 10/19, 09/07/2020, Additional history exists Creatinine Level (Kidney Fun ction Test) 08/07/2024 08/08/2023, 01/25/2023, 09/25/2022, Additional history exists Potassium Level 08/07/2024 08/08/2023, 0 11/2022, 09/25/2022, Additional history exists Sodium Level 08/07/2024 08/08/2023, 0 11/2022, 09/25/2022, Additional history exists Fasting Glucose [...] 6 weeks) or 60+ years Completed 02/26/2023 Medical Devices Implanted Type Area Aboriginal Community Council Member Device Identifier Shelf Expiration Date Model / Serial / Lot Clp Hrzn Ti 6 Clp -Lg Grn - Sna - [id number] Implanted:Qt y: 1 on 07/02/2018 by Edy Silverio M.D. at [facility] Hardware e.g. pins/screws /rods Right: Abdomen Weck (Div of [employer]) 3200 / NA / Clp Hrzn Ti 6 Clp Clem - Sna - [id number] 2 Implanted:Qt y: 1 on 07/02/2018 by Edy Silverio M.D. at [facility] Hardware e.g. pins/screws /rods Right: Abdomen [employer] [id number] / NA / Clp Hrzn Ti 6 Clp Orng - Sna - [id number] Implanted:Qt y: 1 on 07/02/2018 by Edy Silverio M.D. at [facility] Hardware e.g. pins/screws /rods Right: Abdomen Weck (Div of [employer]) 4200 / NA / Clp Hrzn Ti 6 Clp Clem - S0000 - [id number] Implanted:Qt y: 1 on 07/02/2018 by Edy Silverio M.D. at [facility] Hardware e.g. pins/screws /rods [employer] [id number] 02/05/2023 [id number] / 0000 / [id number] Procedures Procedure Name Priority Date/Time Associated Diagnosis Comments DIPSTICK, U Routine 08/08/2023 7:03 AM CDT [place] OSMOLALITY ASSAY URINE Routine 08/08/2023 7:03 AM [...] M.D. LAB URINE ORDERABLES Performing Organization Address City/[facility]/ZIP Co de Phone Number [facility] 200 [place] [address], [facility] [address] [place] [address] * (ABNORMAL) Dipstick, Urine (08/08/2023 7:03 AM [...] M.D. LAB URINE ORDERABLES Performing Organization Address [facility] Co de Phone Number [facility] [address] [place] [address], [facility] 200 [place] [address] * pH, Random, Urine (08/08/2023 7:03 AM CDT) pH, Random, U 6.5 4.5 - 8.0 08/08/2023 7:33 AM CDT DTL Urine 08/08/2023 7:03 AM CDT 08/08/2023 7:15 AM CDT Tramaine Hope M.D. LAB URINE ORDERABLES [facility] [address] [place], [place] [address] [address] [place] [address] * Microscopic Manual (08/08/2023 7:03 AM CDT) Microscopy Normal 08/08/2023 8:22 AM CDT DTL RBC <3 <3 /hpf 08/08/2023 8:22 AM CDT DTL WBC None Seen /hpf 08/08/2023 8:22 AM CDT DTL Comment: ----REFERENCE VALUE---- <4 ??(Males) <11 (Females) Urine 08/08/2023 7:03 AM CDT 08/08/2023 7:15 AM CDT Tramaine Hope M.D. LAB URINE ORDERABLES Performing Organization Address City/State/[facility] Co de Phone Number [facility] [address] [place], [place] [address] [address] * Albumin, Random, Urine (08/08/2023 7:03 AM CDT) Pathologist [facility] Albumin, Random, U <5.0 mg/L 2023 11:27 AM CDT DTL Comment: ----ADDITIONAL INFORMATION---- This test has been modified from the die finisher forging's instructions. Its performance characteristics were determined by [facility] in a manner consistent with CLIA requirements. [...] M.D. LAB URINE ORDERABLES Performing Organization Address [facility] Co de Phone Number [facility] [address] [place] [address], [address] [address] * Urinalysis, with Microscopic: Urine, Midstream (08/08/2023 [...] M.D. LAB URINE ORDERABLES Performing Organization Address City/[facility]/ZIP Co de Phone Number [facility] [address] [place] [address], [facility] [address] [place] [address] * Lipid Panel (08/08/2023 6:53 AM CDT) [...] BLOOD ADD-ON [facility] [address] [place] [address], [facility] [address] [place] [address] * (ABNORMAL) Renal Function Panel (08/08/2023 6:53 [...] BLOOD ADD-ON [facility] [address] [place] [address], [facility] [address] [place] [address] * CBC with Differential, Blood (08/08/2023 6:53 [...] CDT Tramaine Hope M.D. LAB BLOOD ADD-ON [facility] [address] [place] [address], [facility] DTL [facility] [address] [place] [address] DHPM [facility] [address] [place] [address] * BI Breast Screening Bilateral with Tomosynthesis [...] Advance Directives For more information, please contact: [phone] * Full Code (Latest Code Status on File) Date Activated Date Inactivated Comments 07/02/2018 8:58 PM 07/07/2018 4:51 PM Question Answer Comments Full Code: Discussed * Full Code Date Activated Date Inactivated Comments 07/02/2018 8:32 AM 07/02/2018 8:58 PM Question Answer Comments Full Code: Discussed
--- OUTSIDE RECORDS SUMMARY | 2023-10-03 21:14 | XMS_ITS | Encounter Summary ---
Author Name Unknown Organization [facility] Address [address] [place] [address] Care Team Providers Care Welfare Administrator Name Role Phone Unavailable Primary Care Provider Unavailabl e Encounter Details Date Type Department Care Team (Latest Contact Info) Description 08/08/2023 6:38 AM CDT - 08/08/2023 11:59 PM CDT Hospital Encounter Department of Laboratory Medicine and Pathology, [facility] in [place], [place] [address] [place] [address] Tramaine Hope M.D. [address] [place] [phone] Chronic Kidney Disease (CKD), Stage 3a Glomerular [...] How often do you attend chur or christian services? More than 4 times per year 09/22/2022 Do you belong to any clubs o r organizations such as taoism groups, unions, fraternal [...] Answer Date Recorded PHQ-2 Score 1 04/08/2019 [facility] of Occupat ional Health - Occupational [...] slept in a group home (including now)? No 09/22/2022 Nutrition Answer [...] Sex Assigned at Female 05/10/2018 8:56 AM COLD HEADER Gender Identity Female 05/10/2018 8:56 AM COLD HEADER Sexual Orientation Straight 05/10/2018 8: 56 AM COLD HEADER documented as of this encounter Medications at [...] AM CDT Clinical Communication Virtual Review in [address] [phone] 10/26/2023 11:00 AM CDT Appointment Department of Laboratory Medicine and Pathology, [facility] in [address] [phone] Sarah Ruffin APRN, C.N.P., D.N.P. [address] [place] [phone] 10/26/2023 1:45 PM CDT Appointment Department of Radiology, [facility] in [address] [phone] Sarah Ruffin APRN, C.N.P., D.N.P. [address] [place] [phone] 10/30/2023 10:00 AM CDT Office Visit Department of Urology in [address] [phone] Sarah Ruffin APRN, C.N.P., D.N.P. [address] [place] [phone] documented as of this encounter Procedures Procedure Name Priority Date/Time Associated Diagnosis Comments MA OSMOLALITY ASSAY URINE Routine 08/08/2023 7:03 AM [...] Dipstick, Urine (08/08/2023 7:03 AM CDT) Pathologist [facility] Hemoglobin, QL, U Negative Negative 08/08/2023 7:24 [...] CDT Tramaine Hope M.D. LAB URINE ORDERABLES [facility] [address] [place] [address], [facility] [address] [place] [address] * Osmolality, Urine (08/08/2023 7:03 AM CDT) Pathologist [facility] Osmolality, U 228 150 - 1150 mOsm/kg 08/08/2023 7:33 AM CDT DT Urine 08/08/2023 7:03 AM CDT 08/08/2023 7:15 AM CDT Tramaine Hope M.D. LAB URINE ORDERABLES Performing Organization Address City/[facility]/ZIP Co de Phone Number [facility] [address] 200 [place] [address] * pH, Random, Urine (08/08/2023 7:03 AM CDT) pH, Random, U 6.5 4.5 - 8.0 08/08/2023 7:33 AM CDT DT Urine 08/08/2023 7:03 AM CDT 08/08/2023 7:15 AM CDT Tramaine Hope M.D. LAB URINE ORDERABLES Performing Organization Address City/[facility] Co de Phone Number [facility] [address] 200 [place] [address] * Microscopic Manual (08/08/2023 7:03 AM CDT) Microscopy Normal 08/08/2023 8:22 AM CDT DTL RBC <3 <3 /hpf 08/08/2023 8:22 AM CDT DTL WBC None Seen /hpf 08/08/2023 8:22 AM CDT DTL Comment: ----REFERENCE VALUE---- <4 ??(Males) <11 (Females) Urine 08/08/2023 7:03 AM CDT 08/08/2023 7:15 AM CDT Tramaine Hope M.D. LAB URINE ORDERABLES Performing Organization Address City/[facility]/ZIP Co de Phone Number [facility] [address] [place] [address] [place] [address] * Urinalysis, with Microscopic: Urine, Midstream (08/08/2023 [...] CDT Tramaine Hope M.D. LAB URINE ORDERABLES [facility] 200 [place] [address], [facility] 200 [place] [address] * Albumin, Random, Urine (08/08/2023 7:03 AM CDT) Pathologist [facility] Albumin, Random, U <5.0 mg/L 2023 11:27 AM CDT DTL Comment: ----ADDITIONAL INFORMATION---- This test has been modified from the land surveyor assistant's instructions. Its performance characteristics were determined by [facility] in a manner consistent with CLIA [...] AM CDT 08/08/2023 7:32 AM CDT Tramaine Hpoe M.D. LAB URINE ORDERABLES [facility] [address] [place] [address], [facility] DTL [facility] [address] [place] [address] documented in this encounter Visit Diagnoses Diagnosis Chronic Kidney Disease (CKD), Stage 3a Glomerular Filtration Rate (GFR) 45 To 59 (HCC) documented in this encounter
--- OUTSIDE RECORDS SUMMARY | 2023-10-03 21:14 | XMS_ITS | Encounter Summary ---
Author Name Unknown Organization [facility] Address [address] [place] [address] Care Team Providers Care Sewer Pipe Sorter Name Role Phone Unavailable Primary Care Provider Unavailabl e Reason for Visit * Reason Onset Date Comments Covid-Positive in [place] 09/18/2023 Encounter Details Date Type Department Care Team (Latest Contact Info) Description 09/18/2023 Clinical Communication Division of Nephrology and Hypertension in [place], [place] [address] [place] [address] Tramaine Hope M.D. [address] [place] [address] Covid-Positive in [facility] Social History Tobacco Use Types Packs/Day Years [...] often do you attend chur ch or sikh services? More than 4 times per year 09/22/2022 Do you belong to any clubs o r organizations such as rastafari groups, unions, fraternal or athletic groups, or [...] Answer Date Recorded PHQ-2 Score 1 04/08/2019 [facility] of Occupat ional Health - Occupational Stress [...] Sex Assigned at Female 05/10/2018 8:56 AM SQL PROGRAMMER ANALYST Gender Identity Female 05/10/2018 8:56 AM SQL PROGRAMMER ANALYST Sexual Orientation Straight 05/10/2018 8: 56 AM SQL PROGRAMMER ANALYST documented as of this encounter Plan of Treatment Upcoming Encounters Date Type Department Care Team (Latest Contact Info) Description 10/25/2023 10:15 AM CDT Clinical Communication Virtual Review in [place], [place] [address] [place] [address] 10/26/2023 11:00 AM CDT Appointment Department of Laboratory Medicine and Pathology, [facility], in [place], [place] [address] [place] [address] Sarah Ruffin, ROSEMARIE, C.N.PJennifer, D.N.P. [address] [place] [phone] 10/26/2023 1:45 PM CDT Appointment Department of Radiology, [facility], in [place], [place] [address] [place] [phone] Sarah Ruffin APRN, C.NZoila, D.N.P. [address] [place] [phone] 10/30/2023 10:00 AM CDT Office Visit Department of Urology in [place], [place] [address] [place] [phone] Sarah Ruffin APRN, C.N.Jigar., D.N.P. [address] [place] [phone] documented as of this encounter Visit Diagnoses Not on filedocumented in this encounter
--- OUTSIDE RECORDS SUMMARY | 2023-10-03 21:14 | XMS_ITS | Encounter Summary ---
Author Name Unknown Organization [facility] Address [address] [place] [address] Care Team Providers Care Helper Coordinator Name Role Phone Unavailable Primary Care Provider Unavailabl e Reason for Visit * Reason Onset Date Comments Med Question 10/03/2023 Encounter Details Date Type Department Care Team (Latest Contact Info) Description 10/03/2023 Clinical Communication Division of Nephrology and Hypertension in [place], [place] [address] [place] [address] Tramaine Hope M.D. [address] [place] [address] Med Question Social History Tobacco Use Types Packs/Day Years [...] often do you attend chur ch or quaker services? More than 4 times per year 09/22/2022 Do you belong to any clubs o r organizations such as tenriism groups, unions, fraternal or athletic groups, or [...] Answer Date Recorded PHQ-2 Score 1 04/08/2019 [facility] of Occupat ional Health - [...] Sex Assigned at Female 05/10/2018 8:56 AM SR VICE PRESIDENT Gender Identity Female 05/10/2018 8:56 AM SR VICE PRESIDENT Sexual Orientation Straight 05/10/2018 8: 56 AM SR VICE PRESIDENT documented as of this encounter Miscellaneous Notes * Telephone Encounter - Marcial Delphine Castillo - 10/03/2023 2:52 PM CDT Caller is: patient Preferred Communication Method: [phone] (home) Reason for call: Pt called to ask about her dose of Amoxicillin she was put on by her PCP. She tested positive for Covid on 09/18 (was in [place] at the time) and was seen by PCP on 09/27 and tested negative at that time, however PCP thought she had bronchitis as a result of the Covid and put her on Amoxicillin 875mg bid for 10 days. She had labs done on 09/27 at [place] and her Creat was 1.0 and GFR was 60. She picked up script on the afternoon of 09/28 and the pharmacist told her that she should only take ahalf tab bid due to her GFR. She would like to know Dr. Hope''s recommendation for the Amoxicillin. She also has two abscessed teeth that she is being seen for this Sunday. documented in this encounter Plan of Treatment Upcoming Encounters Date Type Department Care Team (Latest Contact Info) Description 10/25/2023 10:15 AM CDT Clinical Communication Virtual Review in [address] [phone] 10/26/2023 11:00 AM CDT Appointment Department of Laboratory Medicine and Pathology, [facility] in [address] [phone] Sarah Ruffin APRN, C.N.P., D.N.P. [address] [place] [phone] 10/26/2023 1:45 PM CDT Appointment Department of Radiology, [facility], in [address] [phone] Sarah Ruffin APRN, C.N.P., D.N.P. [address] [place] [phone] 10/30/2023 10:00 AM CDT Office Visit Department of Urology in [address] [phone] Sarah Ruffin APRN, C.N.P., D.N.P. [address] [place] [phone] documented as of this encounter Visit Diagnoses Not on filedocumented in this encounter
--- OUTSIDE RECORDS SUMMARY | 2023-10-03 21:14 | XMS_ITS | Clinical Summary ---
Author Name Unknown Organization [facility] Address [place], [place] [address] Care Team Providers Care Cement Storage Worker Name Role Phone Ivana Bains MD Primary Care Provider [phone] Allergies Active Allergy Reactions Criticality Noted Date [...] >=3 years)(Flu Clinic Only) 03/24/2010 COVID-19 vaccine (Unbounce [employer] Inspar 30mcg/0.3mL) PF, MDV 07/15/2020 Hepatitis A (Adult) [...] Comments Father (Age 44) sudden shona th, [place] Mother Alive Other Social History Tobacco Use [...] Sex Assigned at Female 07/21/2020 1:19 PM COMPUTER SYSTEMS DESIGN ANALYST Gender Identity Female 07/21/2020 1:19 PM COMPUTER SYSTEMS DESIGN ANALYST Sexual Orientation Straight 07/21/2020 1: 19 PM COMPUTER SYSTEMS DESIGN ANALYST Obstetrics History Last Filed Vital Signs Vital [...] 160 cm (5' 2.99) 07/22/2020 7:52 AM COMPUTER SYSTEMS DESIGN ANALYST Body Mass Index 26.12 07/22/2020 7:52 AM COMPUTER SYSTEMS DESIGN ANALYST Plan of Treatment Health Maintenance Due Date [...] REFLEX MEASURED LDL Routine 07/22/2020 9:18 AM COMPUTER SYSTEMS DESIGN ANALYST Screening cholesterol level COLONOSCOPY 09/24/2018 2:55 PM [...] recommended in 3-5 years. Destiny Bae PA-C [facility] 08/17/2020 Narrative 08/17/2020 4:49 PM CDT XR DXA Bone Mineral Density (BMD) EXAM LOCATION: [facility] [address] [facility] [address] PATIENT NAME: Karyna Willis DATE OF : [...] two scanners are made by the same pathology technologist. PROCEDURE: Dual-energy x-ray absorptiometry performed with routine [...] W REFLEX MEASURED LDL (07/22/2020 9:18 AM COMPUTER SYSTEMS DESIGN ANALYST) CHOLESTEROL,TOTAL 225(H) 100 - 199 mg/dL 07/22/2020 3:34 PM COMPUTER SYSTEMS DESIGN ANALYST [facility] TRIGLYCERIDES 137 <150 mg/dL 07/22/2020 3:34 PM COMPUTER SYSTEMS DESIGN ANALYST [facility] HDL CHOLESTEROL 52 >40 mg/dL 3:34 PM COMPUTER SYSTEMS DESIGN ANALYST [facility] NON-HDL CHOLESTEROL 173(H) <145 mg/dl 07/22/2020 3:34 PM COMPUTER SYSTEMS DESIGN ANALYST [facility] CHOL/HDL RATIO 4.33 <4.50 07/22/2020 3:34 PM COMPUTER SYSTEMS DESIGN ANALYST [facility] LDL CHOLESTEROL 146(H) <=130 mg/dL 07/22/2020 3:34 PM COMPUTER SYSTEMS DESIGN ANALYST [facility] PROVIDER ORDERED STATUS RANDOM 07/22/2020 3:34 PM COMPUTER SYSTEMS DESIGN ANALYST [facility] Blood BLOOD SPECIMEN / Unknown Venipuncture / Unknown 07/22/2020 9:18 AM COMPUTER SYSTEMS DESIGN ANALYST 07/22/2020 9:18 AM COMPUTER SYSTEMS DESIGN ANALYST Jenelle Orozco MD CHEMISTRY [facility] [address] [place] [address], * COLONOSCOPY (09/24/2018 2:55 PM CDT) 09/24/2018 [...] candidate for conscious sedation. The Colon [id number] was passed through the anus and advancedto [...] 2:55 PM Procedure Code(s): --- Professional --- 77060, Colonoscopy, flexible; diagnostic, including collection of specimen(s) bybrushing or washing, when performed (separateprocedure) Diagnosis Code(s): --- Professional --- Z86.010, Personal history of colonicpolyps Q43.8, Other specified congenitalmalformations of intestine CPT copyright 2017 [employer]. All rights reserved. The codes documented in this report are preliminary and upon daycare worker reviewmay be revised to meet current compliance requirements. Scope In: 3:45:53 PM Scope Withdrawal Time 0 hours 7 minutes 44 seconds Scope Out: 4:03:21 PM Jameson Harper MD PROCEDURE ORD * ANTI HCV (03/08/2012 11:06 AM CDT) ANTI HCV Non-reacti ve [facility] Blood specimen (specimen) BLOOD SPECIMEN / Unknown 03/08/2012 11:06 AM CDT 03/08/2012 11:00 AM CDT Germain Javier MD SEND OUTS [facility] [place]NAL ZIP [address] [place], [place] [id number] from Last 3 Months or Most Recently Relevant to Health Maintenance Care Teams Cement Storage Worker Relationship Specialty Start Date End Date Ivana Bains MD [address] [place] [address] PCP - General Internal Medicine 04/12/22
--- OUTSIDE RECORDS SUMMARY | 2023-10-03 21:15 | XMS_ITS | Encounter Summary ---
Author Name Unknown Organization [facility] Address [address] [place] [address] Care Team Providers Care Dining Room Supervisor Name Role Phone Unavailable Primary Care Provider Unavailabl e Encounter Details Date Type Department Care Team (Latest Contact Info) Description 08/08/2023 6:38 AM CDT - 08/08/2023 11:59 PM CDT Hospital Encounter Department of Laboratory Medicine and Pathology, [facility] in [place], [place] [address] [place] [address] Tramaine Hope M.D. [address] [place] [phone] Chronic Kidney Disease (CKD), Stage 3a Glomerular [...] any clubs o r organizations such as samaritan groups, unions, fraternal [...] Answer Date Recorded PHQ-2 Score 1 04/08/2019 [facility] of Occupat ional Health - Occupational [...] or slept in a alf (including now)? No 09/22/2022 Nutrition Answer Date [...] Sex Assigned at Female 05/10/2018 8:56 AM SINGLE PASS SOIL STABILIZER OPERATOR Gender Identity Female 05/10/2018 8:56 AM SINGLE PASS SOIL STABILIZER OPERATOR Sexual Orientation Straight 05/10/2018 8: 56 AM SINGLE PASS SOIL STABILIZER OPERATOR documented as of this encounter Medications [...] AM CDT Clinical Communication Virtual Review in [address] [phone] 10/26/2023 11:00 AM CDT Appointment Department of Laboratory Medicine and Pathology, [facility] in [address] [phone] Sarah Ruffin APRN, C.N.P., D.N.P. [address] [place] [phone] 10/26/2023 1:45 PM CDT Appointment Department of Radiology, [facility], in [address] [phone] Sarah Ruffin APRN, C.N.P., D.N.P. [address] [place] [phone] 10/30/2023 10:00 AM CDT Office Visit Department of Urology in [address] [phone] Sarah Ruffin APRN, C.N.P., D.N.P. [address] [place] [phone] documented as of this encounter Procedures Procedure [...] CDT Tramaine Hope M.D. LAB BLOOD ADD-ON [facility] [address] [place] [address], [facility] DTL [facility] [address] [place] [address] * (ABNORMAL) Renal Function Panel (08/08/2023 6:53 [...] CDT Tramaine Hope M.D. LAB BLOOD ADD-ON [facility] [address] [place] [address], [facility] DTL [facility] [address] [place] [address] * CBC with Differential, Blood (08/08/2023 6:53 [...] CDT Tramaine Hope M.D. LAB BLOOD ADD-ON [facility] 200 [place] [address], [facility] DTL [facility] 200 [place] [address] [facility] [address] [place] [address] documented in this encounter Visit Diagnoses Diagnosis Chronic Kidney Disease (CKD), Stage 3a Glomerular Filtration Rate (GFR) 45 To 59 (HCC) Hypocholesterolemia documented in this encounter
--- OUTSIDE RECORDS SUMMARY | 2023-10-03 21:15 | XMS_ITS | Encounter Summary ---
Author Name Unknown Organization [facility] Address [address] [place] [address] Care Team Providers Care Bottom Loader Name Role Phone Unavailable Primary Care Provider Unavailabl e Reason for Visit * Reason Onset Date Comments Pre-visit Testing Orders 07/24/2023 Prior t o follow up CT Encounter Details Date Type Department Care Team (Latest Contact Info) Description 07/24/2023 Clinical Communication Department of Urology in [place], [place] [address] [place] [phone] Edy Silverio M.D. [address] [place] [phone] Pre-visit Testing Orders (Prior to follow up [...] How often do you attend chur or adventist services? More than 4 times per year 09/22/2022 Do you belong to any clubs o r organizations such as hoahaoism groups, unions, fraternal [...] Answer Date Recorded PHQ-2 Score 1 04/08/2019 [facility] of Occupat ional Health - Occupational [...] slept in a long term (including now)? No 09/22/2022 Nutrition Answer Date [...] Sex Assigned at Female 05/10/2018 8:56 AM DONATION SPECIALIST Gender Identity Female 05/10/2018 8:56 AM DONATION SPECIALIST Sexual Orientation Straight 05/10/2018 8: 56 AM DONATION SPECIALIST documented as of this encounter Plan of Treatment Upcoming Encounters Date Type Department Care Team (Latest Contact Info) Description 10/25/2023 10:15 AM CDT Clinical Communication Virtual Review in [place], [place] [address] [place] [address] 10/26/2023 11:00 AM CDT Appointment Department of Laboratory Medicine and Pathology, [facility], in [place], [place] [address] [place] [address] Sarah Ruffin APRN, C.N.P., D.N.P. [address] [place] [phone] 10/26/2023 1:45 PM CDT Appointment Department of Radiology, [facility], in [place], [place] [address] [place] [phone] Sarah Ruffin APRN, C.N.PJennifer, D.N.P. [address] [place] [phone] 10/30/2023 10:00 AM CDT Office Visit Department of Urology in [place], [place] [address] [place] [phone] Sarah Ruffin APRN, Rizwana.N.P., D.N.P. [address] [place] [phone] Scheduled Orders Name Type Priority Associated Diagnoses Orde r Schedule Creatinine with Estimated GFR Lab Routine Carcinoma Renal Cell Right (HCC) Expected: 09/25/2023, Expires: 10/23/2024 documented as of this encounter Visit Diagnoses Diagnosis Carcinoma Renal Cell Right (HCC)- Primary documented in this encounter
--- OUTSIDE RECORDS SUMMARY | 2023-10-03 21:15 | XMS_ITS | Encounter Summary ---
Author Name Unknown Organization [facility] Address [address] [place] [address] Care Team Providers Care Mandarin Tutor Name Role Phone Unavailable Primary Care Provider Unavailabl e Encounter Details Date Type Department Care Team (Late st Contact Info) Description 07/19/2023 Orders Only Division of Gastroenterology in [place], [place] [address] [place] [phone] Mak Edouard M.D. [address] [place] [address] Genetic Susceptibility To Disease Social History Tobacco [...] often do you attend chur ch or spiritism services? More than 4 times per year 09/22/2022 Do you belong to any clubs o r organizations such as advent groups, unions, fraternal [...] Answer Date Recorded PHQ-2 Score 1 [facility]2019 [facility] Questionnaire Answer Date [...] or slept in a mcc (including now)? No 09/22/2022 Nutrition Answer Date [...] Sex Assigned at Female 05/10/2018 8:56 AM HOTEL SUPERINTENDENT Gender Identity Female 05/10/2018 8:56 AM HOTEL SUPERINTENDENT Sexual Orientation Straight 05/10/2018 8: 56 AM HOTEL SUPERINTENDENT documented as of this encounter Plan of Treatment Upcoming Encounters Date Type Department Care Team (Latest Contact Info) Description 10/25/2023 10:15 AM CDT Clinical Communication Virtual Review in [place], [place] 200 [place] [address] 10/26/2023 11:00 AM CDT Appointment Department of Laboratory Medicine and Pathology, [facility], in [place], [place] [address] [place] [phone] Sarah Ruffin, ROSEMARIE, C.N.P., D.N.P. [address] [place] [phone] 10/26/2023 1:45 PM CDT Appointment Department of Radiology, [facility], in [place], [place] [address] [place] [address] Sarah Ruffin APRN, C.N.P., D.N.P. [address] [place] [address] 10/30/2023 10:00 AM CDT Office Visit Department of Urology in [place], [place] [address] [place] [phone] Sarah Ruffin APRN, C.N.P., D.N.P. [address] [place] [phone] documented as of this encounter Procedures Procedure Name Priority Date/Time Associated Diagnosis Comments EXT TAPESTRY Routine 04/21/2020 12:00 AM HOTEL SUPERINTENDENT Genetic Susceptibility To Disease documented in this encounter Results * EXT Tapestry (04/21/2020 12:00 AM HOTEL SUPERINTENDENT) Gene Studied BRCA1,BRCA2,MLH1,MSH 2,MSH 6,PMS2,EPCAM,APOB,LDLR,LD LRAP1,PCSK9 12:00 AM HOTEL SUPERINTENDENT [place] Genetic Disease Assessed Evaluation of 11 genes associated with Hereditary Breast and Ovarian Cancer, Lozano Syndrome and Familial Hypercholesterolemia. 12:00 AM HOTEL SUPERINTENDENT [place] Genetic Analysis Overall Interpretation Negative results through Tapestry do not replace diagnostic testing for patients with a personal or family history of cancer/hypercholesterolem ia due to limitations with methodology. Consider a referral to a genetic counselor for diagnostic testing if warranted. 12:00 AM HOTEL SUPERINTENDENT [place] Genetic Analysis Report See Tapestry PDF [...] enriched using a custom set of reagents ([employer]+ chemistry). Targeted regions were then sequenced using an Illumina DNA sequencing system. Alignment to a modified version of GRCh38 and variant calling were completed using a customized version of [employer]'s Aircare software, requiring 20x coverage for validated variant calls. The test panel is bioinformatically selected from the [employer]. Copy Number Variants (CNVs) were called using a proprietary bioinformatics pipeline that compared the coverage profile of your sample with the coverage profiles of a reference set of other samples. [facility] GenewatAgame then analyzed generated variant data for the exons and 10 bp of flanking intronic sequence (and select tagged intronic variants) of the 11 genes included in [employer] from the [employer] Database. The Analytical Range includes single nucleotide [...] bp, and untranslated regions. 1 12:00 AM [facility] Human Reference Sequence Assembly GRCh38 1 12:00 AM [facility] Saliva (Mouth) 04/21/2020 Mak Edouard M.D. LAB GENETI C TESTING SpiderSuite [address] [facility], [address] [place] [address], [facility] [place] Jellynote [address] [facility] [address] [facility], [address] [place] [address] documented in this encounter Visit Diagnoses Diagnosis Genetic Susceptibility To Disease documented in this encounter
--- OUTSIDE RECORDS SUMMARY | 2023-10-03 21:15 | XMS_ITS | Encounter Summary ---
Author Name Unknown Organization [facility] Address [address] [place] [address] Care Team Providers Care Denitrator Name Role Phone Unavailable Primary Care Provider Unavailabl e Reason for Referral * Outpatient (Routine) - Authorized Specialty Diagnoses / Procedures Referred By Karen staton Referred To Contact Nephrology and Hypertension Tramaine Hope M.D. 200 [place] [address] [facility] Referral ID Status Reason Start Date Expiration Date V isits Requested Visits Authorized [id number] Authorized 08/08/2023 02/06/2025 1 1 Reason for Visit * Reason Comments Chronic Kidney Disease * Outpatient (Routine) - Closed Specialty Diagnoses / Procedures Referred By Karen staton Referred To Contact Nephrology and Hypertension Tramaine Hope M.D. 200 [place] [address] [facility] Referral ID Status Reason Start Date Expiration Date Visits Re quested Visits Authorized [id number] Closed 01/26/2023 01/25/2026 1 1 Encounter Details Date Type Department Care Team (Latest Contact Info) Description 08/08/2023 10:00 AM CDT Office Visit Division of Nephrology and Hypertension in [place], [place] [address] [place] [phone] Tramaine Hope M.D. [address] [place] [phone] Hypocholesterolemia (Primary Dx); Hypertension And Chronic Kidney [...] often do you attend chur ch or episcopalian services? More than 4 times per year 09/22/2022 Do you belong to any clubs o r organizations such as mandaen groups, unions, fraternal or athletic groups, or [...] Answer Date Recorded PHQ-2 Score 1 04/08/2019 [facility] - Occupational [...] Sex Assigned at Female 05/10/2018 8:56 AM INCOME TAX PREPARER Gender Identity Female 05/10/2018 8:56 AM INCOME TAX PREPARER Sexual Orientation Straight 05/10/2018 8: 56 AM INCOME TAX PREPARER documented as of this encounter Last Filed [...] Patient has a history of CKD and [id number] renal cell carcinoma s/p partial right nephrectomy [...] water, Disp: , Rfl: Current Facility-Administered Medications: vzmlztyobhh-[id number] 0.25%-1%-1:200,000 injection 2-50 mL, 2-50 mL, infiltration, [...] CDT Clinical Communication Virtual Review in [address] [phone] 10/26/2023 11:00 AM CDT Appointment Department of Laboratory Medicine and Pathology, [facility], in [address] [phone] Sarah Ruffin APRN, C.N.P., D.N.P. [address] [place] [phone] 10/26/2023 1:45 PM CDT Appointment Department of Radiology, [facility], in [address] [phone] Sarah Ruffin APRN, C.N.P., D.N.P. [address] [place] [phone] 10/30/2023 10:00 AM CDT Office Visit Department of Urology in [address] [phone] Sarah Ruffin APRN, C.N.P., D.N.P. 200 [place] [address] Scheduled Orders Name Type Priority Associated Diagnoses [...]
[2023-10-03] MEDS: RABIES IMMUNE GLOBULIN 150 UNIT/ML INJ 1200 UNIT INFILTRATI (21:42)
== END 2023-10-03 21:59 | disposition home or self-care (01) ==
LOC: ED 21:12
PROVIDERS: Emergency Provider Emergency Medicine Emergency Medical Services; PCP Internal Medicine
DX: Z20.3 Contact with and (suspected) exposure to rabies (principal)
CPT/HCPCS: 90377; 90471; 90675; 99283; 99284

== ENCOUNTER 2023-10-06 11:54 | Outpatient (RCR) | payer MEDICARE, SELFPAY ==
[2023-10-06 12:10] VITALS: BP 181/79; PULSE 77; RESP 18; TEMP 36.4; O2SAT 98
--- OUTSIDE RECORDS SUMMARY | 2023-10-17 11:07 | XMS_ITS | Clinical Summary ---
Author Organization [facility] Address [place], [place] [address] Care Team Providers Care Content Development Specialist Name Role Phone Ivana Bains MD Primary Care Provider [phone]- [phone] Allergies Active Allergy Reactions Criticality Noted Date [...] >=3 years)(Flu Clinic Only) 03/24/2010 COVID-19 vaccine ([employer] 30mcg/0.3mL) PF, MDV 07/15/2020 Hepatitis A (Adult) [...] Comments Father (Age 44) sudden shona th, [place] Mother Alive Other Social History Tobacco Use [...] Sex Assigned at Female 07/21/2020 1:19 PM DESK CLERKS SUPERVISOR Gender Identity Female 07/21/2020 1:19 PM DESK CLERKS SUPERVISOR Sexual Orientation Straight 07/21/2020 1: 19 PM DESK CLERKS SUPERVISOR Obstetrics History Last Filed Vital Signs Vital [...] 160 cm (5' 2.99) 07/22/2020 7:52 AM DESK CLERKS SUPERVISOR Body Mass Index 26.12 07/22/2020 7:52 AM DESK CLERKS SUPERVISOR Plan of Treatment Health Maintenance Due Date [...] REFLEX MEASURED LDL Routine 07/22/2020 9:18 AM DESK CLERKS SUPERVISOR Screening cholesterol level COLONOSCOPY 09/24/2018 2:55 PM [...] recommended in 3-5 years. Destiny Bae PA-C [facility] 08/17/2020 Narrative 08/17/2020 4:49 PM CDT XR DXA Bone Mineral Density (BMD) EXAM LOCATION: [facility] [address] [address] PATIENT NAME: Karyna Willis DATE OF : [...] two scanners are made by the same food checkers and cashiers supervisor. PROCEDURE: Dual-energy x-ray absorptiometry performed with routine [...] W REFLEX MEASURED LDL (07/22/2020 9:18 AM DESK CLERKS SUPERVISOR) CHOLESTEROL,TOTAL 225(H) 100 - 199 mg/dL 07/22/2020 3:34 PM DESK CLERKS SUPERVISOR [facility] TRIGLYCERIDES 137 <150 mg/dL 07/22/2020 3:34 PM DESK CLERKS SUPERVISOR [facility] HDL CHOLESTEROL 52 >40 mg/dL 3:34 PM DESK CLERKS SUPERVISOR [facility] NON-HDL CHOLESTEROL 173(H) <145 mg/dl 07/22/2020 3:34 PM DESK CLERKS SUPERVISOR [facility] TR[facility] LAB[facility] CHOL/HDL RATIO 4.33 <4.50 07/22/2020 3:34 PM DESK CLERKS SUPERVISOR [facility] TR[facility] LDL CHOLESTEROL 146(H) <=130 mg/dL 07/22/2020 3:34 PM DESK CLERKS SUPERVISOR [facility] TRAL LABORATORY PROVIDER ORDERED STATUS RANDOM 07/22/2020 3:34 PM DESK CLERKS SUPERVISOR [facility] TRAL LAB[facility] Blood BLOOD SPECIMEN / Unknown Venipuncture / Unknown 07/22/2020 9:18 AM DESK CLERKS SUPERVISOR 07/22/2020 9:18 AM DESK CLERKS SUPERVISOR Jenelle Orozco MD CHEMISTRY [facility] [address] [place] [address], * COLONOSCOPY (09/24/2018 2:55 PM CDT) 09/24/2018 [...] candidate for conscious sedation. The Colon CF-H180AL [id number] was passed through the anus and advancedto [...] 2:55 PM Procedure Code(s): --- Professional --- 81232, Colonoscopy, flexible; diagnostic, including collection of specimen(s) bybrushing or washing, when performed (separateprocedure) Diagnosis Code(s): --- Professional --- Z86.010, Personal history of colonicpolyps Q43.8, Other specified congenitalmalformations of intestine CPT copyright 2017 [employer]. All rights reserved. The codes documented in this report are preliminary and upon interactive web developer reviewmay be revised to meet current compliance requirements. Scope In: 3:45:53 PM Scope Withdrawal Time 0 hours 7 minutes 44 seconds Scope Out: 4:03:21 PM Jameson Harper MD PROCEDURE ORD * ANTI HCV (03/08/2012 11:06 AM CDT) ANTI HCV Non-reacti ve [facility] Blood specimen (specimen) BLOOD SPECIMEN / Unknown 03/08/2012 11:06 AM CDT 03/08/2012 11:00 AM CDT Germain Javier MD SEND OUTS [facility] [place]NAL ZIP [address] [place], [place] [phone] from Last 3 Months or Most Recently Relevant to Health Maintenance Care Teams Content Development Specialist Relationship Specialty Start Date End Date Ivana Bains MD [address] [place] [address] PCP - General Internal Medicine 04/12/22
--- OUTSIDE RECORDS SUMMARY | 2023-10-17 11:07 | XMS_ITS ---
Author Organization Unknown Patient Care team information Name Category Status Period Participants - - Proposed period not known -
[2023-10-17 11:10] VITALS: BP 158/72; PULSE 63; RESP 18; TEMP 36.2; O2SAT 99
--- NOTE | 2023-11-13 13:41 | ED.NURSE ---
Patient called to see which vaccine she received in our ER for 10/03/23, 10/06/23, and 10/17/23. Confirmed with pharmacy that patient received Imovax on 10/03/23, 10/06/23, and 10/17/23. Business Unit Leader worked with [facility] and Pharmacy to determine that there is a glitch in our expanse and when a vaccine is documented, it is automatically uploaded to [facility], however, the CVX code in expanse for the Imovax vaccine has the CVX code for RabAvert and ITS is working with our vendor to correct this problem. There is no ETA on when this will be fixed. Per ITS, Rabies vaccines will not be uploaded into [facility] at this time until the CVX code is fixed. Called patient back to let her know that she did receive the Imovax here at [facility] and it is correct in [facility]. Patient was satisified with this answer and was very appreciative of all the information she received and care she received at [facility].
== END 2023-10-17 12:00 | disposition home or self-care (01) ==
LOC: EDOUT 10-17 10:30
PROVIDERS: PCP Internal Medicine; Visit Provider Emergency Medicine Emergency Medical Services
DX: Z91.89 Other specified personal risk factors, not elsewhere classified (principal)
CPT/HCPCS: 80307; 90471; 90675

== ENCOUNTER 2024-05-29 20:20 | Emergency (ER) | payer MEDICARE, SELFPAY ==
--- OUTSIDE RECORDS SUMMARY | 2024-05-29 20:22 | XMS_ITS | Clinical Summary ---
Author Organization [facility] Address [place], [place] [address] Care Team Providers Care Transit Bus Operator Name Role Phone Ivana Bains MD Primary Care Provider [phone]- [phone] Allergies Active Allergy Reactions Criticality Noted Date Comments Rabeprazole Rash 11/10/2016 Groin area Hydrochlorothiazide Angioedema 12/21/2009 Not clearly related but possible. Pantoprazole Other - Describe In Comment Field,Anaphylaxis High 08/11/2006 swelling to uvula, and rash in groin Other reaction(s): Other (see comments) swelling to uvula, and rash in groin Medications multivitamin pediatric chewable tablet Take 1 tablet by mouth once daily. Flinstones with Iron 1 tab daily 0 0 Active lisinopriL (PRINIVIL; ZESTRIL) 2.5 mg tabletIndications :Essential hypertension TAKE 1 TABLET BY MOUTH EVERY DAY 30 Tablet 1 Active Active Problems Problem Noted Date Diagnosed Date Immunization reaction 07/22/2020 Menopause 07/22/2020 Stage 3a chronic kidney disease 07/22/2020 Melanoma in situ 09/30/2019 Renal cell carcinoma 09/30/2019 Chronic GERD 09/30/2019 Adenomatous colon polyp 07/31/2013 Overview (09/24/2018): Colonoscopy 07/2013 polyps repeat in 5 years Colonoscopy 09/2018 redundant colon, repeat in 5 years, Pediatrics scope Unspecified essential hypertension 08/11/2006 Resolved Problems Problem Noted Date Diagnosed Date Resolved Date Pain in finger of right hand 04/17/2012 03/13/2013 Vitamin D deficiency 03/17/2011 013 Perimenopause 12/21/2009 03/13/2013 Iron deficiency anemia, unspecified 03/13/2013 Overview (08/11/2006): Chronic Immunizations Name Administration Dates Next Due AMB Influenza, IIV3 (Age >=3 years)(Flu Clinic Only) 03/24/2010 COVID-19 vaccine ([employer] 30mcg/0.3mL) PF, MDV 07/15/2020 Hepatitis A (Adult) [...] Comments Father (Age 44) sudden shona th, [place] Mother Alive Other Social History Tobacco Use [...] Paying Living Expenses Not on file 05/19/2021 Comments No Sex and Gender Information Value Date Recorded Sex Assigned at Female 07/21/2020 1:19 PM COMPANION Legal Sex Female 6:20 AM COMPANION Gender Identity Female 07/21/2020 1:19 PM COMPANION Sexual Orientation Straight 07/21/2020 1: 19 PM COMPANION Obstetrics History Last Filed Vital Signs Vital Sign Reading Time Taken Comments Blood Pressure 140/72 08/03/2020 3:49 PM CDT Pulse 58 08/03/2020 3:05 PM CDT Temperature 36.9 C (98.5 F) 06/11/2019 1:14 PM COMPANION Respiratory Rate 16 07/31/2017 10:41 AM CDT Oxygen Saturation 100% 08/03/2020 3:05 PM CDT Inhaled Oxygen Concentration - - Weight 66.9 kg (147 lb 6.4 oz) 08/03/2020 3:05 P M CDT Height 160 cm (5' 2.99) 07/22/2020 7:52 AM COMPANION Body Mass Index 26.12 07/22/2020 7:52 AM COMPANION Plan of Treatment Health Maintenance Due Date [...] exists Tetanus booster 11/09/2021 11/10/2011, 08/19, 12/19/1994 Colonoscopy through age 75 09/25/202309/24, 09/24/2018, 09/24/2018, Additional history exists COVID-19 vaccine series ( season) 2024 11/22/2021, 03/16/2021, 01/06/2021, Additional history exists Influenza for age 65+ 01/20/2024 02/25/2020 , 02/25/2020, 02/13/2019, Additional history exists Lipids for age 45-75 07/22/2025 07/22/2020, 07/14/2016, 03/16/2011, Additional history exists RSV vaccine for adults or (1 - 1-dose 75+ series) 2028 Tdap Completed 11/10/2011 Hepatitis C screening for ag e 18-79 Completed 03/08/2012 Zoster (shingles) series for age 50+ Completed 04/21/2019, 01/14/2019, 01/31/2017 Pneumococcal series for age 50+ Completed , 01/14/2019 DEXA/DXA scan for age 65+ Completed 08/17/2020, Procedures Procedure Name Priority Date/Time Associated Diagnosis Comments XR MAMMO RADHA UNI ADDL VIEWS LEFT Routine 09/07/2020 9:16 AM CDT Abnormal mammogram XR DXA BONE DENSITY 2 SITES AXIAL Routine 08/17/2020 8:54 AM CDT Menopause LIPID PANEL W REFLEX MEASURED LDL Routine 07/22/2020 9:18 AM COMPANION Screening cholesterol level COLONOSCOPY 09/24/2018 2:55 PM CDT ANTI HCV Routine 03/08/2012 11:06 AM CDT Need for hepatitis C screening test from Last 3 Months or Most Recently Relevant to Health Maintenance Results * XR MAMMO RADHA UNI ADDL VIEWS LEFT (09/07/2020 9:16 AM CDT) Anatomical Region Laterality Modality BREASTS, Breast Left Mammography Impressions 09/07/2020 12:58 PM CDT No evidence for malignancy. RECOMMENDATION: Recommend annual screening mammography. Results and recommendations were discussed with the patient at the time of the exam. BI-RADS Category 1: Negative Juany Mathur M.D. Body/Breast Radiologist [email or web address] SBV/rcd Narrative 09/07/2020 12:58 PM CDT PATIENTS: You will also receive a letter with your examination results in an easy to read format. If you have questions about your results, please contact your referring provider. LEFT DIGITAL DIAGNOSTIC MAMMOGRAM ADDITIONAL VIEWS WITH TOMOSYNTHESIS, 09/07/2020 CLINICAL HISTORY: Asymmetry in upper LEFT breast on screening mammogram. COMPARISON: 09/01/2020, 04/22/2019, 04/17/2018 and 02/13/2017. TECHNIQUE: These mammographic images have been obtained using digital technique. Tomosynthesis was also used to interpret the study. BREAST COMPOSITION: The breasts are heterogeneously dense, which may obscure small masses. FINDINGS: Dissipation of asymmetry with additional views. us Jenelle Orozco MD MAMMO Final Resul t * XR DXA BONE DENSITY 2 SITES [...] recommended in 3-5 years. Destiny Bae PA-C [facility] 08/17/2020 Narrative 08/17/2020 4:49 PM CDT XR DXA Bone Mineral Density (BMD) EXAM LOCATION: [facility] [address] [facility] [facility] [address] PATIENT NAME: Karyna Willis DATE OF : 1955 EXAM DATE: 08/17/2020 REQUESTING PROVIDER: Jenelle Orozco MD GENDER AT : female HEIGHT: 5' 2.99 (07/22/2020) WEIGHT: 147 lb 6.4 oz (08/03/2020) MENOPAUSAL STATUS: Postmenopausal [...] two scanners are made by the same manager fund. PROCEDURE: Dual-energy x-ray absorptiometry performed with routine [...] Comparison to most recent scan in 2013: Decrease -11.0%. RESULT FEMORAL NECK Left Total Femoral Neck BMD: 0.958 g/cm2 T-Score: -0.6 Z-Score: 1.0 RESULT TOTAL HIP Bilateral Total Hip BMD: 1.007 g/cm2 T-Score: 0.0 Z-Score: 1.3 Comparison to most recent scan in 2013: Decrease -17.2%. WHO criteria: Normal: T-score at or above -1 SD Osteopenia: T-score between -1.1 and -2.4 SD Osteoporosis: T-score at or below -2.5 SD us Jenelle Orozco MD DEXA Final Resul t * (ABNORMAL) LIPID PANEL W REFLEX MEASURED LDL (07/22/2020 9:18 AM COMPANION) CHOLESTEROL,TOTAL 225(H) 100 - 199 mg/dL 07/22/2020 3:34 PM COMPANION [facility] TR[facility] LABORATORY TRIGLYCERIDES 137 <150 mg/dL 07/22/2020 3:34 PM COMPANION [facility] TR[facility] LAB[facility] HDL CHOLESTEROL 52 >40 mg/dL 3:34 PM COMPANION [facility] NON-HDL CHOLESTEROL 173(H) <145 mg/dl 07/22/2020 3:34 PM COMPANION [facility] CHOL/HDL RATIO 4.33 <4.50 07/22/2020 3:34 PM COMPANION [facility] LDL CHOLESTEROL 146(H) <=130 mg/dL 07/22/2020 3:34 PM COMPANION [facility] TR[facility] LABOR[facility] PROVIDER ORDERED STATUS RANDOM 07/22/2020 3:34 PM COMPANION [facility] Blood BLOOD SPECIMEN / Unknown Venipuncture / Unknown 07/22/2020 9:18 AM COMPANION 07/22/2020 9:18 AM COMPANION us Jenelle Orozco MD CHEMISTRY Final Resul t [facility] [address] [place] [address], [place] * COLONOSCOPY (09/24/2018 2:55 PM CDT) 09/24/2018 [...] candidate for conscious sedation. The Colon CF-H180AL [id number] was passed through the anus and advancedto [...] 2:55 PM Procedure Code(s): --- Professional --- 10452, Colonoscopy, flexible; diagnostic, including collection of specimen(s) bybrushing or washing, when performed (separateprocedure) Diagnosis Code(s): --- Professional --- Z86.010, Personal history of colonicpolyps Q43.8, Other specified congenitalmalformations of intestine CPT copyright 2017 [employer]. All rights reserved. The codes documented in this report are preliminary and upon paintings restorer reviewmay be revised to meet current compliance requirements. Scope In: 3:45:53 PM Scope Withdrawal Time 0 hours 7 minutes 44 seconds Scope Out: 4:03:21 PM us Jameson Harper MD PROCEDURE ORD Final Res ult * ANTI HCV (03/08/2012 11:06 AM CDT) ANTI HCV Non-reacti ve [facility] Blood specimen (specimen) BLOOD SPECIMEN / Unknown 03/08/2012 11:06 AM CDT 03/08/2012 11:00 AM CDT us Germain Javier MD SEND OUTS Final Re sult [facility] INTERNAL ZIP [address] [place] [address] from Last 3 Months or Most Recently Relevant to Health Maintenance Insurance [employer] MEDICARE ADVANTAGE MR MEDICARE PART A HB ONLY Care Teams Transit Bus Operator Relationship Specialty Start Date End Date Ivana Bains MD [address] [place] [id number] PCP - General Internal Medicine 04/12/22
--- OUTSIDE RECORDS SUMMARY | 2024-05-29 20:22 | XMS_ITS | Clinical Summary ---
Author Organization [facility] Address [address] [place] [address] Care Team Providers Care Hospital Librarian Name Role Phone Elsewhere, Pcp Primary Care Provider Unavailabl e Source Comments Patient records contain information from all sites at [facility]. For routine questions regarding patient records, call [phone] during business hours, M-F 8:00 AM - 5:00 PM Central Time. Record requests for emergency care only can be directed to [phone] at any time.[facility] Allergies Active Allergy Reactions Criticality Noted Date Comments Covid-19 Vacc,Mrna(Pfizer)(Pf) Other (see comments) 11/03/2021 Mouth tingling Omeprazole Other (see comments) 02/18/2024 Groin area Pantoprazole Rash,Other (see comments) High 08/11/2006 Rash in groin (note that oral symptoms were subsequently found to be secondary to undiagnosed GERD) Polyethylene Glycol Other (see comments) 01/10/2023 Proton Pump Inhibitors Rash,Other (see comments) 11/10/2016 Groin area Groin area Groin area Rabeprazole Rash 11/10/2016 Groin area Medications MULTIVITAMIN ORAL Take by mouth. 2 gummies daily Active lisinopriL (PRINIVIL,ZESTR IL) 2.5 mg tablet Take 2 tablets (5 mg total) by mouth as directed. Take 2.5 mg in the morning and 5 mg at night 270 tablet 3 4 08/08/19 25 Active Additional Information Patient taking differently: 2.5-5 mgoral As Directed, Take 2.5 mg in the morning and 5 mg at night, Reported on 02/27/2024 calcium carbonate-vitam in D3-vitamin K (Viactiv) 1,625 mg (650 mg calcium)-12.5 mcg (500 Unit)-40 mcg tablet,chewable per chewable tablet Chew 1 tablet daily. Active calcium carbonate-vitam in D3-vitamin K (Viactiv) 1,625 mg (650 mg calcium)-12.5 mcg (500 Unit)-40 mcg tablet,chewable per chewable tablet Chew 1 tablet daily. 4 Active Active Problems Problem Noted Date Diagnosed [...] Encounters Date Type Department Care Team Description 02/29/2024 Orders Only Division of Nephrology and Hypertension in [place], [place] [address] [place] [address] Tramaine Hope M.D. from Last 3 Months Immunizations Name Administration Dates Next Due HZV (ZOSTAVAX) 01/31/2017 HepA Adult 01/14/1998,06/15/1997 HepB Adult 06/26/1995, 5,01/05/1995,1994 IPV 12/21/2011 Influenza TIV (IM) 02/25/2020, 2,03/16/2011,2009 Influenza high [...] 03/01/2022,11/10/2011 Ty21a (oral) 06/01/2023,12/25/2011 YF 12/21/2011 influenza trivalent high dos e (HD)(PF) 02/13/2019 influenza trivalent vaccine (6 months and older)(PF) 04/09/2015,03/16/2011 influenza vaccine quad (FLUZONE/FLUARIX) (6 months and older)(PF) 03/18/2018,01/31/2017,01/26/2014 Family History Medical History Relation Name Comments Asthma Brother Rodney Coronary artery disease Father Mika sudd en 46 Hyperlipidemia Father Mika Unexplained Father Mika Dementia Maternal Grandfather R. Sandraottoniel Arthritis Maternal Grandmother A. Devonte Arthritis Mother Mahesh Forrester Breast cancer Mother Mahesh Forrester Colon polyps Mother Mahesh Forrester Hypertension Mother MJennifer Forrester Diabetes Mother's Sister G.Zoe Obesity Mother's Sister G.Zoe Coronary artery disease Paternal Grandfather CJennifer Forrester sudden 72? Hypertension Paternal Grandmother Mika Stroke Paternal Grandmother RJen Colon polyps Sister G. Aler Skin cancer Sister G. Aler Basal-face Relation Name Status Comments Brother Rodney Father Mika Maternal Grandfather R. Sandrae Maternal Grandmother A. Sandrae Mother MJennifer Medinas Mother's Sister G.Zoe Paternal Grandfather C. Ricoeks Paternal Grandmother R.Ricoeks Sister GJennifer Sibley Social History Tobacco Use Types Packs/Day Years Used Date Smoking Tobacco: Never Passive Smoke Exposure: Past Smokeless Tobacco: Never Tobacco Cessation:Counseling Given: Not Answered Comments:passive smoke as a child, teen Alcohol Use Standard Drinks/Week Comments Not Currently 0 (1 standard drink = 0.6 oz pur e alcohol) not since 06/2017 [facility] Utilities Answer Date Recorded In the past 12 months has e electric, gas, oil, or water company threatened to shut off services in your home? No 10/24/2023 Humiliation, Afraid, Rape, and Kick questionnair e [...] often do you attend chur ch or christian services? More than 4 times per year 09/22/2022 Do you belong to any clubs o r organizations such as catholic groups, unions, fraternal [...] Answer Date Recorded PHQ-2 Score 1 04/08/2019 [facility] - Occupational Stress [...] exercise (like a brisk walk)? 5 days 10/24/2023 On average, how many minutes do you engage in exercise at this level? 50 min 10/24/2023 Hunger Vital Sign Answer Date Recorded Within the past 12 months, y ou worried that your food would run out before you got the money to buy more. Never true 10/24/19 Within the past 12 months, t he food you bought just didn't last and you didn't have money to get more. Never true 10/24/2023 PRAPARE - Transportation Answer Date Re corded In the past 12 months, has l ack of transportation kept you from medical appointments or from getting medications? No 09/2023 In the past 12 months, has l ack of transportation kept you from meetings, work, or from getting things needed for daily living? No 10/24/2023 Nutrition Answer Date Recorded On average, how many serving s of fruits and vegetables do you eat per day (serving size is equal to 1 cup or approximately the size of a tennis ball)? 5 or more 10/24/2023 Dental Answer Date Recorded Dental: Regular Dentist Yes 01/04/20 Employment Answer Date Recorded Employment status Retired 10/24/2023 Housing Stability Answer Date Recorded What is your living situation today? I have a [address] [place] place to live 10/24/2023 Education Answer Date Recorded What is the highest level of school you have completed or the highest degree you have received? Bachelor's degree (e.g., BA, AB, BS) 03/18/2019 Comments No Sex and Gender Information Value Date Recorded Sex Assigned at Female 05/10/2018 8:56 AM TANGIBLE PERSONAL PROPERTY APPRAISER Legal Sex Female 10:35 PM TANGIBLE PERSONAL PROPERTY APPRAISER Gender Identity Female 05/10/2018 8:56 AM TANGIBLE PERSONAL PROPERTY APPRAISER Sexual Orientation Straight 05/10/2018 8: 56 AM TANGIBLE PERSONAL PROPERTY APPRAISER Last Filed Vital Signs Vital Sign Reading Time Taken Comments Blood Pressure 145/76 02/20/2024 1:53 PM CDT Pulse 69 02/20/2024 1:53 PM CDT Temperature 36 C (96.8 F) 08/08/2023 9:51 AM CDT Respiratory Rate 16 07/07/2018 4:47 AM TANGIBLE PERSONAL PROPERTY APPRAISER Oxygen Saturation 97% 03/26/2019 8:14 AM TANGIBLE PERSONAL PROPERTY APPRAISER Inhaled Oxygen Concentration - - Weight 63.7 kg (140 lb 6.9 oz) 02/20/2024 1:53 P M CDT Height 159 cm (5' 2.6) 02/20/2024 1:53 PM CDT Body Mass Index 25.2 02/20/2024 1:53 PM CDT Plan of Treatment Health Maintenance Due Date Last Done Comments CT Colonography 1955 Cologuard 1955 Hepatitis C Screening 1955 IPV Vaccines (2 of 3 - Adult catch-up series) 01/18/2012 12/21/2011 Colonoscopy 09/25/2023 09/24/2018, 08/2018 (Performed elsewhere), 08/02/2018, Additional history exists Colorectal Cancer Surveillance 09/25/2023 COVID-19 Vaccine (2023-2 5 season) 2024 08/30/2023, 03/14/2023, 11/22/2021, Additional history exists Mammogram 02/27/2024 02/26/2023, 10/19, 09/07/2020, Additional history exists Depression Screening (Annual PHQ-2) 05/21/2024 Fall Risk Screen (Annual) 05/21/2024 Office Visit for Blood Press ure Check / Re-check 05/22/2024 02/20/2024 Creatinine Level (Kidney Fun ction Test) 02/19/2025 02/20/2024, 10/26/2023, 08/08/2023, Additional history exists Potassium Level 02/19/2025 02/20/2024, 11/2023, 08/08/2023, Additional history exists Sodium Level 02/19/2025 02/20/2024, 06/0 11/2023, 08/08/2023, Additional history exists Fasting Glucose for Diabetes Screening 02/19/2027 02/20/2024, 10/26/2023, 08/08/2023, Additional history exists DTaP,Tdap,and Td Vaccines (3 - Td or Tdap) 03/01/2032 03/01/2022, 11/10/2011, 10/21/2011, Additional history exists Hepatitis B Vaccines Completed 06/26/1995, 02/05/1995, 01/05/1995, Additional history exists Hepatitis A Vaccines Completed 01/14/1998, 06/15/18 98 Zoster Vaccines Completed 04/21/2019, 12/20, 01/31/2017 Pneumococcal vaccine (50+ years) Completed 01/22/20, 01/14/2019 Bone Density Scan (Osteoporo sis Screen) Discontinued 02/26/2023, 08/18/2019 (Performed elsewhere) RSV vaccine - (32-3 6 weeks) or 60+ years Completed 02/26/2023 Influenza Vaccine Completed 01/17/2024, , 02/27/2022, Additional history exists Medical Devices Implanted Type Area Home Care Liaison Device Identifier Shelf Expiration Date Model / Serial / Lot Clp Hrzn Ti 6 Clp -Lg Grn - Sna - [id number] Implanted:Qt y: 1 on 07/02/2018 by Edy Silverio M.D. at [facility] Hardware e.g. pins/screws /rods Right: Abdomen Weck (Div of [employer]) [id number] / NA / Clp Hrzn Ti 6 Clp Clem - Sna - [id number] Implanted:Qt y: 1 on 07/02/2018 by Edy Silverio M.D. at [facility] Hardware e.g. pins/screws /rods Right: Abdomen [employer] [id number] / NA / Clp Hrzn Ti 6 Clp Orng - Sna - [id number] 2 Implanted:Qt y: 1 on 07/02/2018 by Edy Silverio M.D. at [facility] Hardware e.g. pins/screws /rods Right: Abdomen Weck (Div of [employer]) [id number] / NA / Clp Hrzn Ti 6 Clp Clem - [id number] - [id number] Implanted:Qt y: 1 on 07/02/2018 by Edy Silverio M.D. at [facility] Hardware e.g. pins/screws /rods [employer] [id number] 02/05/2023 [id number] / 0000 / [id number] Procedures Procedure Name Priority Date/Time Associated Diagnosis Comments RENAL FUNCTION PANEL, S Routine 02/20/2024 11:08 AM CDT Hypocholesterolem ia Hypertensive Chronic Kidney Disease With Stage 1 Through Stage 4 Chronic Kidney Disease, Or Unspecified Chronic Kidney Disease BI BREAST SCREENING BILATERAL WITH TOMOSYNTHESIS RAD - Routine (most inpatients and all outpatients) 02/26/2023 12:02 PM CDT Screening Mammogram Average Risk Patient Dense Breasts, Unspecified from Last 3 Months or Most Recently Relevant to Health Maintenance Results * (ABNORMAL) Renal Function Panel (02/20/2024 11:08 AM CDT) Potassium, S 4.5 3.6 - 5.2 mmol/L 02/20/2024 12:11 PM CDT DTL Sodium, S 138 135 - 145 mmol/L 02/20/2024 12:11 PM CDT DTL Chloride, S 102 98 - 107 mmol/L 02/20/2024 12:11 PM CDT DTL Bicarbonate, S 26 22 - 29 mmol/L 02/20/2024 12:11 PM CDT DTL Anion Gap 10 7 - 15 02/20/2024 12:11 PM CDT DTL BUN (Blood Urea Nitrogen), S 14 6 - 21 mg/dL 02/20/2024 12:11 PM CDT DTL Creatinine 1.23(H) 0.59 - 1.04 mg/dL 02/20/2024 12:11 PM CDT DTL Estimated GFR (eGFR) 47(L) >=60 mL/min/BSA 02/20/2024 12:11 PM CDT DTL Comment: Estimated GFR calculated using the 2020 CKD_EPI creatinine equation. Calcium, Total, S 9.3 8.8 - 10.2 mg/dL 02/20/2024 12:11 PM CDT DTL Glucose, S 86 70 - 140 mg/dL 02/20/2024 12:11 PM CDT DTL Albumin, S 4.4 3.5 - 5.0 g/dL 02/20/2024 12:11 PM CDT DTL Phosphorus (Inorganic), S 3.6 2.5 - 4.5 mg/dL 02/20/2024 12:11 PM CDT DTL Blood (Blood, Venous) 02/20/2024 11:08 AM CDT 02/20/2024 11:42 AM CDT Tramaine Hope M.D. LAB BLOOD ADD-ON Final Result [facility] [address] [place] [address], [facility] [address] [place] [address] * BI Breast Screening Bilateral with Tomosynthesis (02/26/2023 12:02 PM CDT) Anatomical Region Laterality Modality Breast, Breast Imaging RST L OS, Breast Imaging ARZ LOS, Breast Imaging FLA LOS Bilateral Mammography 02/26/2023 2:25 PM CDT Impressions 02/26/2023 2:49 PM CDT Negative. RECOMMENDATION: Annual Screening Mammogram ASSESSMENT: BI-RADS: 1: Negative. Narrative 02/26/2023 2:49 PM CDT EXAM: BI BREAST SCREENING BILATERAL WITH TOMOSYNTHESIS Current study was evaluated with a Computer Aided Detection (CAD) system. INDICATION: Screening mammogram. COMPARISON: Prior exam(s) were available and reviewed for comparison. DENSITY: c. The breast(s) are heterogeneously dense, which may obscure small masses. FINDINGS: No findings of malignancy. No significant change since prior exam. Procedure Note [...] Mali Gonzalez M.D., Ph.D. IMG BI PROCEDURES Fi nal Result from Last 3 Months or Most Recently Relevant to Health Maintenance Insurance [facility] Advance Directives For more information, please contact: [phone] * Full Code (Latest Code Status on File) Date Activated Date Inactivated Comments 07/02/2018 8:58 PM 07/07/2018 4:51 PM Question Answer Comments Full Code: Discussed * Full Code Date Activated Date Inactivated Comments 07/02/2018 8:32 AM 07/02/2018 8:58 PM Question Answer Comments Full Code: Discussed Care Teams Hospital Librarian Relationship Specialty Start Date End Date Elsewhere, Pcp PCP - General Internal Medicine 10/25/23
--- OUTSIDE RECORDS SUMMARY | 2024-05-29 20:22 | XMS_ITS | Clinical Summary ---
Author Organization [facility] [employer] Address [address] [place] [address] Care Team Providers Care Knowledge Architect Name Role Phone No, Pcp SPLITTER HEAD Primary Care Provider Unavailabl e Allergies Active Allergy Reactions Criticality Noted Date Comments Pantoprazole Anaphylaxis High 11/02/2015 Medications lisinopril (PRINIVIL,ZESTRI L) 5 MG tablet TK 1 T PO D 3 09/29/2015 Ac tive Saccharomyces boulardii (FLORASTOR) 250 mg capsule 250 mg 2 (two) times a day. Active Social History Tobacco Use Types Packs/Day Years Used Date Smoking Tobacco: Never Comments No Sex and Gender Information Value Date Recorded Sex Assigned at Not on file Legal Sex Female 6:52 AM EST Gender Identity Not on file Sexual Orientation Not on file Last Filed Vital Signs Vital Sign Reading Time Taken Comments Blood Pressure 140/68 11/02/2015 11:18 AM EDT Pulse 76 11/02/2015 11:18 AM EDT Temperature 36.3 C (97.3 F) 11/02/2015 11:18 AM EDT Respiratory Rate 16 11/02/2015 11:18 AM EDT Oxygen Saturation 98% 11/02/2015 11:18 AM EDT Inhaled Oxygen Concentration - - Weight 69.4 kg (153 lb) 11/02/2015 11:18 AM EDT reported Height 160 cm (5' 3) 11/02/2015 11:18 AM EDT re ported Body Mass Index 27.1 11/02/2015 11:18 AM EDT Plan of Treatment Health Maintenance Due Date Last Done Comments Colorectal Cancer: COLONOSCO PY Screening every 10 yrs (or Modifier) 1953 Depression: Screening Annual ly using PHQ-2/9 in Adults 18 yrs or above (or HM Modifier)([facility]) 1971 Hepatitis C Virus Infection in Adolescents and Adults: Screening (or Modifier) ([facility]) 1971 SDOH Screening Reminder: Mildred torre for all adults ([facility]) 1971 Tobacco Smoking Cessation: i n Adults excluding Women: Behavioral and Pharmacotherapy Interventions ([facility]) 1971 DTaP/Tdap/Td Vaccines ([facility]) (1 - Tdap) 1972 Colorectal Cancer Screening 45 -75 Yrs (or HM Modifier ) 1998 Colorectal Cancer: FLEXIBLE SIGMOIDOSCOPY Screening every 5 yrs 1998 Colorectal Cancer: Fecal Imm unochemical Test (FIT) Annually [facility] 1998 Colorectal Cancer: High-sens itivity gFOBT Screening Annually [facility] 1998 Colorectal Cancer: Stool Col oguard Screening every 3 yrs 1998 Colorectal Cancer:CT Colonography Screening every 5 yr s 1998 Lipid Screening: Every 5 yrs for Women aged 45+ (or HM Modifier) ([facility]) 1999 Breast Cancer: Screening Mildred yelitza age 50-74 yrs (or HM Modifier)([facility]) 2003 Zoster/Shingles Vaccine Seri es Screening: Adults aged 18+ yrs (or HM Modifiers)([facility]) (1 of 2) 2003 RSV Vaccines (1 - 1-dose 60+ series) 2013 Osteoporosis Screening to Pr event Fractures: Women aged 65 years+ ([facility]) 2018 Pneumococcal Vaccination Scr eening: Patients 65+ yrs of age ([facility]) (1 of 1 - PCV) 2018 Flu Vaccination: Ages 65+: Y early High Dose Recommended (or Modifier)([facility]) 12/20/2023 COVID-19 Vaccine Screening: Initial Series and Booster Status ([facility]) ( - 2023- season) 2024 Medical Devices Not on file Insurance [facility] Care Teams Knowledge Architect Relationship Specialty Start Date End Date No, Pcp, SPLITTER HEAD N/A Do not use PCP - General 11/02/15
--- OUTSIDE RECORDS SUMMARY | 2024-05-29 20:23 | XMS_ITS ---
Author Organization [facility] Address [address] [place] [address] Care Team Providers Care Siebel Architect Name Role Phone Unavailable Unavailable Unavailable Surgery Details Not on file Complications Check Surgery Details section. Procedure Estimated Blood Loss Check Surgery Details section. Procedure Findings Check Surgery Details section. Procedure Specimens Taken Check Surgery Details section.
--- OUTSIDE RECORDS SUMMARY | 2024-05-29 20:23 | XMS_ITS | Referral Summary ---
Author Organization [facility] Address [address] [place] [address] Care Team Providers Care Wax Cutter Name Role Phone Elsewhere, Pcp Primary Care Provider Unavailabl e Source Comments Patient records contain information from all sites at [facility]. For routine questions regarding patient records, call [phone] during business hours, M-F 8:00 AM - 5:00 PM Central Time. Record requests for emergency care only can be directed to [phone] at any time.[facility] Encounters Date Type Department Care Team Description 02/29/2024 Orders Only Division of Nephrology and Hypertension in [place], [place] [address] [place] [address] Tramaine Hope M.D. from Last 3 Months Allergies Active Allergy [...] oz pur e alcohol) not since 06/2017 [facility] [employer] Answer Date Recorded In the past 12 months has e [place], gas, oil, or water [employer] threatened to shut off services in your [...] often do you attend chur ch or adventism services? More than 4 times per year 09/22/2022 Do you belong to any clubs o r organizations such as yazidism groups, unions, fraternal [...] Answer Date Recorded PHQ-2 Score 1 04/08/2019 [facility] - Occupational Stress Questionnaire Answer [...] money to buy more. Never true 10/24/19 24 Within the past 12 months, t he [...] your living situation today? I have a [facility] place to live 10/24/2023 Education Answer Date Recorded What is the highest level of school you have completed or the highest degree you have received? Bachelor's degree (e.g., BA, AB, BS) 03/18/2019 Comments No Sex and Gender Information Value Date Recorded Sex Assigned at Female 05/10/2018 8:56 AM SOUND TECHNICIAN SUPERVISOR Legal Sex Female 10:35 PM SOUND TECHNICIAN SUPERVISOR Gender Identity Female 05/10/2018 8:56 AM SOUND TECHNICIAN SUPERVISOR Sexual Orientation Straight 05/10/2018 8: 56 AM SOUND TECHNICIAN SUPERVISOR Last Filed Vital Signs Vital Sign Reading Time Taken Comments Blood Pressure 145/76 02/20/2024 1:53 PM CDT Pulse 69 02/20/2024 1:53 PM CDT Temperature 36 C (96.8 F) 08/08/2023 9:51 AM CDT Respiratory Rate 16 07/07/2018 4:47 AM SOUND TECHNICIAN SUPERVISOR Oxygen Saturation 97% 03/26/2019 8:14 AM SOUND TECHNICIAN SUPERVISOR Inhaled Oxygen Concentration - - Weight 63.7 kg (140 lb 6.9 oz) 02/20/2024 1:53 P M CDT Height 159 cm (5' 2.6) 02/20/2024 1:53 PM CDT Body Mass Index 25.2 02/20/2024 1:53 PM CDT Plan of Treatment Not on file Medical Devices Implanted Type Area Staffing Branch Manager Device Identifier Shelf Expiration Date Model / Serial / Lot Clp Hrzn Ti 6 Tin Goyal-Lg Grn - Sna - [id number] Implanted:Qt y: 1 on 07/02/2018 by Edy Silverio M.D. at [facility] Hardware e.g. pins/screws /rods Right: Abdomen Weck (Div of [employer]) 3200 / NA / Clp Hrzn Ti 6 Clp Md Clem - Sna - [id number] Implanted:Qt y: 1 on 07/02/2018 by Edy Silverio M.D. at [facility] Hardware e.g. pins/screws /rods Right: Abdomen [employer] [id number] / NA / Clp Hrzn Ti 6 Clp Lg Orng - Sna - [id number] Implanted:Qt y: 1 on 07/02/2018 by Edy Silverio M.D. at [facility] Hardware e.g. pins/screws /rods Right: Abdomen Weck (Div of [employer]) [id number] / NA / Clp Hrzn Ti 6 Clp Md Clem - S0000 - [id number] Implanted:Qt y: 1 on 07/02/2018 by Edy Silverio M.D. at [facility] Hardware e.g. pins/screws /rods [employer] [id number] 02/05/2023 [id number] / 0000 / [id number] Procedures Procedure Name Priority Date/Time Associated [...] Hope M.D. LAB BLOOD ADD-ON Final Result [facility] [address] [place] [address], [facility] DTL [facility] [address] [place] [address] * BI Breast Screening Bilateral with Tomosynthesis [...] Most Recently Relevant to Health Maintenance Insurance [facility] Advance Directives For more information, please contact: [phone] * Full Code (Latest Code Status on File) Date Activated Date Inactivated Comments 07/02/2018 8:58 PM 07/07/2018 4:51 PM Question Answer Comments Full Code: Discussed * Full Code Date Activated Date Inactivated Comments 07/02/2018 8:32 AM 07/02/2018 8:58 PM Question Answer Comments Full Code: Discussed Care Teams Wax Cutter Relationship Specialty Start Date End Date Elsewhere, Pcp PCP - General Internal Medicine 10/25/23
[2024-05-29 20:34] VITALS: BP 196/78; PULSE 82; RESP 16; TEMP 36.8; O2SAT 97; BMI 24.8
[2024-05-29 21:45] VITALS: BP 170/94; PULSE 85; RESP 16; TEMP 36.8; O2SAT 97
[2024-05-29 22:46] LABS: Basophils Absolute Auto 0.03 K/uL (0.00-0.30); Basophils Percent Auto 0.7 % (0.0-3.0); Eosinophils Absolute Auto 0.21 K/uL (0.00-0.50); Eosinophils Percent Auto 4.6 % (0.0-7.0); Hematocrit 40.2 % (33.0-51.0); Hemoglobin* 13.3 gm/dL (12.0-16.0); Immature Granulocytes Abs Auto 0.04 K/uL (0.00-0.30); Immature Granulocytes Pct Auto 0.9 %; Lymphocytes Absolute Auto 1.08 K/uL (0.90-2.90); Lymphocytes Percent Auto 23.7 % (20-44); Mean Corpuscular HGB Conc 33 gm/dL (32-36); Mean Corpuscular Hemoglobin 29 pg (26-34); Mean Corpuscular Volume 89 fL (80-100); Monocytes Percent Auto 6.8 % (0.0-11.0); Neutrophils Absolute Auto 2.88 K/uL (1.7-7.0); Neutrophils Percent Auto 63.3 % (42.0-72.0); Platelet Count* 175 K/uL (140-440); RDW Coefficient of Variation % 12.8 % (11.5-15.5); Red Blood Count 4.54 m/uL (4.00-5.20); White Blood Count* 4.55 K/uL (4.50-11.00)
[2024-05-29 22:48] LABS: Chloride* 107 mmol/L (96-114)
[2024-05-29 22:49] LABS: Potassium* 3.7 mmol/L (3.6-5.1); Sodium* 140 mmol/L (135-149)
[2024-05-29 22:51] LABS: Creatinine* 0.9 mg/dL (0.5-1.5); Est. Creatinine Clearance* 42.68; Estimated Glomerular Filt Rate 68 ml/min
[2024-05-29 22:52] LABS: Anion Gap 6 mEq/L (7-15); Blood Urea Nitrogen* 14 mg/dL (7-30); Carbon Dioxide* 27 mmol/L (20-32)
[2024-05-29 22:53] LABS: Calcium* 9.5 mg/dL (8.4-10.6); Glucose* 95 mg/dL (60-115)
--- NOTE | 2024-05-29 23:00 | ED.NURSE ---
assumed care of patient
[2024-05-29 23:06] LABS: C Reactive Protein* < 0.5 mg/dL (0.5-1.0)
[2024-05-29 23:18] LABS: Slide Review Reflex No
--- OUTSIDE RECORDS SUMMARY | 2024-05-29 23:35 | XMS_ITS | Clinical Summary ---
Author Organization [facility] [employer] [facility] Address [address] [facility] [address] [place] [address] Care Team Providers Care Sr Vice President Name Role Phone No, Pcp PLASTIC MOULD MAKER Primary Care Provider Unavailabl e Allergies Active [...] Adults 18 yrs or above (or HM Modifier)([facility]) 1971 Hepatitis C Virus Infection in Adolescents and Adults: Screening (or Modifier) ([facility]) 1971 SDOH Screening Reminder: Mildred torre for all adults ([facility]) 1971 Tobacco Smoking Cessation: i n Adults excluding Women: Behavioral and Pharmacotherapy Interventions ([facility]) 1971 DTaP/Tdap/Td Vaccines ([facility]) (1 - Tdap) 1972 Colorectal Cancer Screening 45 -75 Yrs (or HM Modifier ) 1998 Colorectal Cancer: FLEXIBLE SIGMOIDOSCOPY Screening every 5 yrs 1998 Colorectal Cancer: Fecal Imm unochemical Test (FIT) Annually [facility] 1998 Colorectal Cancer: High-sens itivity gFOBT Screening Annually [facility] 1998 Colorectal Cancer: Stool Col oguard Screening every 3 yrs 1998 Colorectal Cancer:CT Colonography Screening every 5 yr s 1998 Lipid Screening: Every 5 yrs for Women aged 45+ (or HM Modifier) ([facility]) 1999 Breast Cancer: Screening Mildred yelitza age 50-74 yrs (or HM Modifier)([facility]) 2003 Zoster/Shingles Vaccine Seri es Screening: Adults aged 18+ yrs (or HM Modifiers)([facility]) (1 of 2) 2003 RSV Vaccines (1 - 1-dose 60+ series) 2013 Osteoporosis Screening to Pr event Fractures: Women aged 65 years+ ([facility]) 2018 Pneumococcal Vaccination Scr eening: Patients 65+ yrs of age ([facility]) (1 of 1 - PCV) 2018 Flu Vaccination: Ages 65+: Y early High Dose Recommended (or Modifier)([facility]) 12/20/2023 COVID-19 Vaccine Screening: Initial Series and Booster Status ([facility]) ( - 2023- season) 2024 Medical Devices Not on file Insurance [facility] Care Teams Sr Vice President Relationship Specialty Start Date End Date No, Pcp, PLASTIC MOULD MAKER N/A Do not use PCP - General 11/02/15
--- OUTSIDE RECORDS SUMMARY | 2024-05-29 23:36 | XMS_ITS | Clinical Summary ---
Author Organization [facility] Address [address] [place] [address] Care Team Providers Care Data Designer Name Role Phone Elsewhere, Pcp Primary Care Provider Unavailabl e Source Comments Patient records contain information from all sites at [facility]. For routine questions regarding patient records, call [phone] during business hours, M-F 8:00 AM - 5:00 PM Central Time. Record requests for emergency care only can be directed to [phone] at any time.[facility] Allergies Active Allergy Reactions Criticality Noted [...] Only Division of Nephrology and Hypertension in [place], [place] [address] [place] [address] Tramaine Hope M.D. from Last 3 Months [...] oz pur e alcohol) not since 06/2017 [facility] Utilities Answer Date Recorded In the past [...] often do you attend chur ch or jewish services? More than 4 times per year [...] Answer Date Recorded PHQ-2 Score 1 04/08/2019 [facility] of Occupat ional Health - Occupational Stress [...] Sex Assigned at Female 05/10/2018 8:56 AM BUNCH BREAKER Legal Sex Female 10:35 PM BUNCH BREAKER Gender Identity Female 05/10/2018 8:56 AM BUNCH BREAKER Sexual Orientation Straight 05/10/2018 8: 56 AM BUNCH BREAKER Last Filed Vital Signs Vital Sign Reading Time Taken Comments Blood Pressure 145/76 02/20/2024 1:53 PM CDT Pulse 69 02/20/2024 1:53 PM CDT Temperature 36 C (96.8 F) 08/08/2023 9:51 AM CDT Respiratory Rate 16 07/07/2018 4:47 AM BUNCH BREAKER Oxygen Saturation 97% 03/26/2019 8:14 AM BUNCH BREAKER Inhaled Oxygen Concentration - - Weight 63.7 [...] history exists Medical Devices Implanted Type Area Patient Svcs Mgr Device Identifier Shelf Expiration Date Model / Serial / Lot Clp Hrzn Ti 6 Clp -Lg Grn - Sna - [id number] 2 Implanted:Qt y: 1 on 07/02/2018 by Edy Silverio M.D. at [facility] Hardware e.g. pins/screws /rods Right: Abdomen Weck (Div of [employer]) 3200 / NA / Clp Hrzn Ti 6 Clp Clem - Sna - [id number] 2 Implanted:Qt y: 1 on 07/02/2018 by Edy Silverio M.D. at [facility] Hardware e.g. pins/screws /rods Right: Abdomen [employer] [id number] / NA / Clp Hrzn Ti 6 Clp Orng - Sna - [id number] 2 Implanted:Qt y: 1 on 07/02/2018 by Edy Silverio M.D. at [facility] Hardware e.g. pins/screws /rods Right: Abdomen Weck (Div of [employer]) 4200 / NA / Clp Hrzn Ti 6 Clp Clem - S0000 - [id number] 2 Implanted:Qt y: 1 on 07/02/2018 by Edy Silverio M.D. at [facility] Hardware e.g. pins/screws /rods [employer] [id number] 02/05/2023 [id number] / 0000 / [id number] Procedures Procedure Name Priority Date/Time Associated [...] Hope M.D. LAB BLOOD ADD-ON Final Result [facility] [address] [place] [address], [facility] [address] [place] [address] * BI Breast Screening Bilateral with Tomosynthesis [...] Most Recently Relevant to Health Maintenance Insurance [employer] Advance Directives For more information, please contact: [phone] * Full Code (Latest Code Status on File) Date Activated Date Inactivated Comments 07/02/2018 8:58 PM 07/07/2018 4:51 PM Question Answer Comments Full Code: Discussed * Full Code Date Activated Date Inactivated Comments 07/02/2018 8:32 AM 07/02/2018 8:58 PM Question Answer Comments Full Code: Discussed Care Teams Data Designer Relationship Specialty Start Date End Date Elsewhere, Pcp PCP - General Internal Medicine 10/25/23
--- OUTSIDE RECORDS SUMMARY | 2024-05-29 23:36 | XMS_ITS | Referral Summary ---
Author Organization [facility] Address [address] [place] [address] Care Team Providers Care Director Pharmacology Name Role Phone Elsewhere, Pcp Primary Care Provider Unavailabl e Source Comments Patient records contain information from all sites at [facility]. For routine questions regarding patient records, call [phone] during business hours, M-F 8:00 AM - 5:00 PM Central Time. Record requests for emergency care only can be directed to [phone] at any time.[facility] Encounters Date Type Department Care Team Description 02/29/2024 Orders Only Division of Nephrology and Hypertension in [place], [place] [address] [place] [address] Tramaine Hope M.D. from Last 3 Months [...] oz pur e alcohol) not since 06/2017 [facility] [employer] Answer Date Recorded In the past 12 months has e [employer], gas, oil, or water [employer] threatened to shut off services in your [...] often do you attend chur ch or scientology services? More than 4 times per year 09/22/2022 Do you belong to any clubs o r organizations such as scientology groups, unions, fraternal [...] Answer Date Recorded PHQ-2 Score 1 04/08/2019 [facility] - Occupational Stress Questionnaire Answer [...] your living situation today? I have a [facility] place to live 10/24/2023 Education Answer Date Recorded What is the highest level of school you have completed or the highest degree you have received? Bachelor's degree (e.g., BA, AB, BS) 03/18/2019 Comments No Sex and Gender Information Value Date Recorded Sex Assigned at Female 05/10/2018 8:56 AM NUTRITION COUNSELOR Legal Sex Female 10:35 PM NUTRITION COUNSELOR Gender Identity Female 05/10/2018 8:56 AM NUTRITION COUNSELOR Sexual Orientation Straight 05/10/2018 8: 56 AM NUTRITION COUNSELOR Last Filed Vital Signs Vital Sign Reading Time Taken Comments Blood Pressure 145/76 02/20/2024 1:53 PM CDT Pulse 69 02/20/2024 1:53 PM CDT Temperature 36 C (96.8 F) 08/08/2023 9:51 AM CDT Respiratory Rate 16 07/07/2018 4:47 AM NUTRITION COUNSELOR Oxygen Saturation 97% 03/26/2019 8:14 AM NUTRITION COUNSELOR Inhaled Oxygen Concentration - - Weight 63.7 kg (140 lb 6.9 oz) 02/20/2024 1:53 P M CDT Height 159 cm (5' 2.6) 02/20/2024 1:53 PM CDT Body Mass Index 25.2 02/20/2024 1:53 PM CDT Plan of Treatment Not on file Medical Devices Implanted Type Area Trial Mgr Device Identifier Shelf Expiration Date Model / Serial / Lot Clp Hrzn Ti 6 Tin Goyal-Lg Grn - Sna - [id number] 2 Implanted:Qt y: 1 on 07/02/2018 by Edy Silverio M.D. at [facility] Hardware e.g. pins/screws /rods Right: Abdomen Weck (Div of [employer]) 3200 / NA / Clp Hrzn Ti 6 Clp Md Clem - Sna - [id number] 2 Implanted:Qt y: 1 on 07/02/2018 by Edy Silverio M.D. at [facility] Hardware e.g. pins/screws /rods Right: Abdomen [employer] [id number] / NA / Clp Hrzn Ti 6 Clp Lg Orng - Sna - [id number] 2 Implanted:Qt y: 1 on 07/02/2018 by Edy Silverio M.D. at [facility] Hardware e.g. pins/screws /rods Right: Abdomen Weck (Div of [employer]) 4200 / NA / Clp Hrzn Ti 6 Clp Md Clem - S0000 - [id number] 2 Implanted:Qt y: 1 on 07/02/2018 by Edy Silverio M.D. at [facility] Hardware e.g. pins/screws /rods [employer] [id number] 02/05/2023 [id number] / 0000 / [id number] Procedures Procedure Name Priority Date/Time Associated [...] Hope M.D. LAB BLOOD ADD-ON Final Result [facility] [address] [place] [address], [facility] DTL [facility] [address] [place] [address] * BI Breast Screening Bilateral with Tomosynthesis [...] Most Recently Relevant to Health Maintenance Insurance [facility] Advance Directives For more information, please contact: [phone] * Full Code (Latest Code Status on File) Date Activated Date Inactivated Comments 07/02/2018 8:58 PM 07/07/2018 4:51 PM Question Answer Comments Full Code: Discussed * Full Code Date Activated Date Inactivated Comments 07/02/2018 8:32 AM 07/02/2018 8:58 PM Question Answer Comments Full Code: Discussed Care Teams Director Pharmacology Relationship Specialty Start Date End Date Elsewhere, Pcp PCP - General Internal Medicine 10/25/23
--- OUTSIDE RECORDS SUMMARY | 2024-05-29 23:36 | XMS_ITS | Continuity of Care Document ---
Author Name NwHIN User [email or web address] llowed Address Unknown Organization Unknown Address Unknown Procedures FILTER APPLIED:Only known Procedures with Onset Date within the last 5 years Procedure Date Procedure Provider Additiona l Information Status RABIES VACCINE IM (24996) Completed IMMUNE GLOBULIN (52155) Completed RABIES VACCINE IM (74085) Completed EMERGENCY DEPT VISIT LOW MDM (43909) Completed IMMUNIZATION ADMIN (13957) Completed ELECTROCARDIOGRAM TRACING (78659) Completed ASSAY OF TROPONIN QUANT (65342) Completed METABOLIC PANEL TOTAL CA (67333) Completed ROUTINE VENIPUNCTURE (15012) Completed EMERGENCY DEPT VISIT MOD MDM (49629) Completed COMPLETE CBC W/AUTO DIFF WBC (38603) Completed METABOLIC PANEL TOTAL CA (84837) Completed EMERGENCY DEPT VISIT LOW MDM (72216) Completed Encounters FILTER APPLIED:Only known Encounters with Admission Date within the last 5 years Encounter Location Admission Discharge Billing Code Consultant [facility]ed[facility] Janene Bains [facility]
--- OUTSIDE RECORDS SUMMARY | 2024-05-29 23:36 | XMS_ITS ---
Author Organization [facility] Address [address] [place] [address] Care Team Providers Care Trenching Machine Operator Name Role Phone Unavailable Unavailable Unavailable Surgery Details Not on file Complications Check Surgery Details section. Procedure Estimated Blood Loss Check Surgery Details section. Procedure Findings Check Surgery Details section. Procedure Specimens Taken Check Surgery Details section.
--- OUTSIDE RECORDS SUMMARY | 2024-05-29 23:36 | XMS_ITS | Clinical Summary ---
Author Organization [facility] Address [place], [place] [address] Care Team Providers Care Beach Expert Name Role Phone Ivana Bains MD Primary Care Provider [phone] Allergies Active Allergy Reactions Criticality Noted Date [...] >=3 years)(Flu Clinic Only) 03/24/2010 COVID-19 vaccine (StyleZen 30mcg/0.3mL) PF, MDV 07/15/2020 Hepatitis A (Adult) [...] Comments Father (Age 44) sudden shona th, [place] Mother Alive Other Social History Tobacco Use [...] Sex Assigned at Female 07/21/2020 1:19 PM PRINTING ENGINEER Legal Sex Female 6:20 AM PRINTING ENGINEER Gender Identity Female 07/21/2020 1:19 PM PRINTING ENGINEER Sexual Orientation Straight 07/21/2020 1: 19 PM PRINTING ENGINEER Obstetrics History Last Filed Vital Signs Vital Sign Reading Time Taken Comments Blood Pressure 140/72 08/03/2020 3:49 PM CDT Pulse 58 08/03/2020 3:05 PM CDT Temperature 36.9 C (98.5 F) 06/11/2019 1:14 PM PRINTING ENGINEER Respiratory Rate 16 07/31/2017 10:41 AM CDT Oxygen Saturation 100% 08/03/2020 3:05 PM CDT Inhaled Oxygen Concentration - - Weight 66.9 kg (147 lb 6.4 oz) 08/03/2020 3:05 P M CDT Height 160 cm (5' 2.99) 07/22/2020 7:52 AM PRINTING ENGINEER Body Mass Index 26.12 07/22/2020 7:52 AM PRINTING ENGINEER Plan of Treatment Health Maintenance Due Date [...] REFLEX MEASURED LDL Routine 07/22/2020 9:18 AM PRINTING ENGINEER Screening cholesterol level COLONOSCOPY 09/24/2018 2:55 PM [...] 1: Negative Juany Mathur M.D. Body/Breast Radiologist [email or web address] Narrative 09/07/2020 12:58 [...] recommended in 3-5 years. Destiny Bae PA-C [facility] 08/17/2020 Narrative 08/17/2020 4:49 PM CDT XR DXA Bone Mineral Density (BMD) EXAM LOCATION: [facility] [address] [address] PATIENT NAME: Karyna Willis DATE OF : [...] two scanners are made by the same topstitcher zigzag. PROCEDURE: Dual-energy x-ray absorptiometry performed with routine [...] W REFLEX MEASURED LDL (07/22/2020 9:18 AM PRINTING ENGINEER) CHOLESTEROL,TOTAL 225(H) 100 - 199 mg/dL 07/22/2020 3:34 PM PRINTING ENGINEER [facility] TRIGLYCERIDES 137 <150 mg/dL 07/22/2020 3:34 PM PRINTING ENGINEER [facility] HDL CHOLESTEROL 52 >40 mg/dL 3:34 PM PRINTING ENGINEER [facility] NON-HDL CHOLESTEROL 173(H) <145 mg/dl 07/22/2020 3:34 PM PRINTING ENGINEER [facility] CHOL/HDL RATIO 4.33 <4.50 07/22/2020 3:34 PM PRINTING ENGINEER [facility] LDL CHOLESTEROL 146(H) <=130 mg/dL 07/22/2020 3:34 PM PRINTING ENGINEER [facility] PROVIDER ORDERED STATUS RANDOM 07/22/2020 3:34 PM PRINTING ENGINEER [facility] Blood BLOOD SPECIMEN / Unknown Venipuncture / Unknown 07/22/2020 9:18 AM PRINTING ENGINEER 07/22/2020 9:18 AM PRINTING ENGINEER us Jenelle Orozco MD CHEMISTRY Final Resul t [facility] [address] [place] [address], [place] * COLONOSCOPY (09/24/2018 2:55 PM CDT) [...] candidate for conscious sedation. The Colon [id number] was passed through the anus and advancedto [...] 2:55 PM Procedure Code(s): --- Professional --- 67533, Colonoscopy, flexible; diagnostic, including collection of specimen(s) bybrushing or washing, when performed (separateprocedure) Diagnosis Code(s): --- Professional --- Z86.010, Personal history of colonicpolyps Q43.8, Other specified congenitalmalformations of intestine CPT copyright 2017 [employer]. All rights reserved. The codes documented in this report are preliminary and upon candy dipper hand reviewmay be revised to meet current compliance requirements. Scope In: 3:45:53 PM Scope Withdrawal Time 0 hours 7 minutes 44 seconds Scope Out: 4:03:21 PM us Jameson Harper MD PROCEDURE ORD Final Res ult * ANTI HCV (03/08/2012 11:06 AM CDT) ANTI HCV Non-reacti ve [facility] Blood specimen (specimen) BLOOD SPECIMEN / Unknown 03/08/2012 11:06 AM CDT 03/08/2012 11:00 AM CDT us Germain Javier MD SEND OUTS Final Re sult [facility] [place]NAL ZIP [id number] [address] [place] [address] from Last 3 Months or Most Recently Relevant to Health Maintenance Insurance [employer]VANTAGE MR MEDICARE PART A HB ONLY Care Teams Beach Expert Relationship Specialty Start Date End Date Ivana Bains MD [address] [place] [address] PCP - General Internal Medicine 04/12/22
--- NOTE | 2024-05-30 00:03 | ED_ITS ---
HPI - General Adult General Chief complaint: Hypertension Stated complaint: high blood pressure Time Seen by Provider: 05/29/24 21:49 Source: patient Mode of arrival: ambulatory Limitations: no limitations History of Present Illness HPI narrative: 69-year-old male presents the emergency department with a nonspecific fluid feeling in her right ear with sinus congestion for the past 2 weeks. Her main concern is that she has had elevated blood pressure today. Reports that she was feeling generally unwell and checked her blood pressure. Noted it to be for the 160s to 180s as high as 190 systolic. This is out of character for her. She does have a history of hypertension and is treated with lisinopril. She reports a history of chronic kidney disease, does follow with Nephrology. Reports this is been ongoing since September and is thought secondary to a dental infection. She reports that she has followed up with his a dentist and has had a repeat CT showing that ?it still open? I assume this means the root tract. She is concerned there could be an infection that could affect her kidneys again. She has no fever, denies any chest pain or shortness of breath. No known illness exposures. Declined COVID swab for me. Typically only checks her blood pressure a few times per week. Give me at least 10 readings today just in the last few hours. Past medical history notable for hypertension, reports stage 3 chronic kidney disease, follows regularly with her research professor. Home meds are lisinopril 2.5 mg in the morning 5 mg at night. No other prescription medications. No alcohol or recreational drugs. ROS is notable for the generalized and cardiovascular symptoms as above, otherwise denies times 12 systems Related Data Home Medications ?Medication ?Instructions ?Recorded ?Confirmed multivitamin (Multiple Vitamins 1 tab PO QAM 02/02/22 05/29/24 tablet) calcium 650 mg-vitamin D3 12.5 tab PO PRN 11/27/23 01/17/24 mcg-vitamin K 40 mcg chewable tablet (Viactiv) lisinopril 2.5 mg tablet 2.5 mg PO QAM 11/29/23 05/29/24 lisinopril 5 mg tablet 5 mg PO QPM 11/29/23 05/29/24 Allergies Allergy/AdvReac Type Severity Reaction Status Date / Time hydrochlorothiazide Allergy Unknown Unknown Verified 01/17/24 11:31 pantoprazole Allergy Unknown Unknown Verified 01/17/24 11:31 polyethylene glycol Allergy Unknown tingling Verified 01/17/24 11:31 lips Proton Pump Inhibitors Allergy Unknown Unknown Verified 01/17/24 11:31 PFSH PFS Medical History Acute paronychia of toe ?L03.039 - Cellulitis of unspecified toe (ICD-10) Surgical History History of surgical removal of ganglion cyst (11/19/11) ?Z98.890 - Other specified postprocedural states (ICD-10) History of partial nephrectomy (07/02/18) ?Z90.5 - Acquired absence of kidney (ICD-10) History of malignant melanoma of skin (10/10/18) ?Z85.820 - Personal history of malignant melanoma of skin (ICD-10) History of inguinal hernia ?Z87.19 - Personal history of other diseases of the digestive system (ICD-10) History of hysterectomy (12/2004) ?Z90.710 - Acquired absence of both cervix and uterus (ICD-10) History of benign breast biopsy (2003) ?Z98.890 - Other specified postprocedural states (ICD-10) Social History Smoking Status: Never smoker Do you use any of these nicotine containing products: None Second hand tobacco smoke exposure: No How often do you have a drink containing alcohol: never AUDIT-C Alcohol total score: 0 Non-prescribed substance use: denies use Exam Const: Vital Signs, click to edit/add: Vital Signs - 24 hr 05/29/24 20:34 05/29/24 21:45 Temperature 98.3 F 98.3 F Pulse Rate [Pulse Oximeter] 82 85 Respiratory Rate 16 16 Blood Pressure [Ri ght Upper Arm] 196/78 H 170/94 H Pulse Oximetry 97 97 Oxygen Delivery Me thod Room Air Room Air Documenting provider has reviewed patient's vital signs: yes Other: Anxious but appropriate. Good historian. Cooperative HENMT: Common normals: normocephalic, moist oral mucous membranes and oropharynx normal Head and scalp: normocephalic Face and sinus: normal facial exam Other: Right ear with minimal serous effusion, normal light reflex. Both nares with clear mucus rhinorrhea. Oropharynx with a slight postnasal drip but otherwise normal pharyngeal arches, no redness. Normal buccal mucosa. Eye: Common normals: conjunctivae normal General eye: normal appearance of both eyes Conjunctiva: conjunctiva(e) normal Neck & C-Spine: Common normals: no lymphadenopathy General: normal visual inspection Resp: Common normals: normal respiratory effort, no use of accessory muscles and clear to auscultation bilaterally Effort & inspection: able to speak in complete sentences Auscultation: clear to auscultation bilaterally Cardio: Common normals: regular rate, regular rhythm, S1 normal heart sound, S2 normal heart sound and no murmurs Rate: regular rate Rhythm: regular rhythm Heart sounds: S1 normal and S2 normal Psych: Activity/motor behavior: appropriate eye contact Mood and affect: anxious Skin: Common normals: no rashes or lesions noted General skin exam: no rashes or lesions noted Course Course ED Course: 69-year-old female with borderline elevated blood pressure and no stroke-like symptoms. Blood pressure here is 170/94. Counseled patient that I am not really concerned for the blood pressure which she is very concerned. To ease her mind, I have ordered a CBC, basic metabolic panel, CRP, flu swab and tro ponin Reevaluation(s) Time of Reevaluation #1: 23:11 Reevaluation #1: Counseled patient on findings. Labs are very reassuring. Blood pressure is not at dangerous levels. She has no signs cardiac compromise or stroke. Counseled to continue blood pressure monitoring 3 times daily, continue her home antihypertensives. Alarm symptoms reviewed that would warrant ED presentation. Update her primary care team or research professor regarding her blood pressures in a week. I do not see enough signs of significant infection in her ear, teeth or sinuses that would warrant antibiotics. Rationale discussed. Vital Signs Vital signs: Initial Vital Signs Temperature 98.3 F 05/29/24 20:34 Temperature Source Temporal Artery Scan 05/29/24 20:34 Pulse Rate 82 05/29/24 20:34 Respiratory Rate 16 05/29/24 20:34 Blood Pressure 196/78 H 05/29/24 20:34 Blood Pressure Mean 117 H 05/29/24 20:34 Blood Pressure Position Sitting 05/29/24 20:34 Pulse Oximetry 97 05/29/24 20:34 Oxygen Delivery Method Room Air 05/29/24 20:34 Vital Signs Temperature 98.3 F 05/29/24 20:34 Pulse Rate 82 05/29/24 20:34 Respiratory Rate 16 05/29/24 20:34 Blood Pressure 196/78 H 05/29/24 20:34 Pulse Oximetry 97 05/29/24 20:34 Oxygen Delivery Method Room Air 05/29/24 20:34 Temperature 98.3 F 05/29/24 21:45 Pulse Rate 85 05/29/24 21:45 Respiratory Rate 16 05/29/24 21:45 Blood Pressure 170/94 H 05/29/24 21:45 Pulse Oximetry 97 05/29/24 21:45 Oxygen Delivery Method Room Air 05/29/24 21:45 Medical Decision Making Lab Data Lab results reviewed: Yes I reviewed the patient's lab results Lab results narrative: Labs reassuring. No elevated white count, normal troponin. Normal CRP. Creatinine stable Labs: Lab Results 05/29/24 05/29/24 Range/Units 22:25 22:28 WBC 4.55 (4.50-11.00) K/uL RBC 4.54 (4.00-5.20) m/uL Hgb 13.3 (12.0-16.0) gm/dL Hct 40.2 (33.0-51.0) % MCV 89 (80-100) fL MCH 29 (26-34) pg MCHC 33 (32-36) gm/dL RDW Coeff of [place] 12.8 (11.5-15.5) % Plt Count 175 (140-440) K/uL Neut % (Auto) 63.3 (42.0-72.0) % Lymph % (Auto) 23.7 (20-44) % [place] % (Auto) 6.8 (0.0-11.0) % Eos % (Auto) 4.6 (0.0-7.0) % Baso % (Auto) 0.7 (0.0-3.0) % Neut # (Auto) 2.88 (1.7-7.0) K/uL Lymph # (Auto) 1.08 (0.90-2.90) K/uL [place] # (Auto) 0.30 (0.00-0.90) K/UL Eos # (Auto) 0.21 (0.00-0.50) K/uL Baso # (Auto) 0.03 (0.00-0.30) K/uL Abs Immat Gran (auto) 0.04 (0.00-0.30) K/uL Imm/Tot Granulo (auto) 0.9 % Sodium 140 (135-149) mmol/L Potassium 3.7 (3.6-5.1) mmol/L Chloride 107 (96-114) mmol/L Carbon Dioxide 27 (20-32) mmol/L Anion Gap 6 L (7-15) mEq/L BUN 14 (7-30) mg/dL Creatinine 0.9 (0.5-1.5) mg/dL Estimated Creat Clear 42.68 Estimated GFR 68 ml/min Glucose 95 (60-115) mg/dL Calcium 9.5 (8.4-10.6) mg/dL C-Reactive Protein < 0.5 L (0.5-1.0) mg/dL POC Troponin I 0.00 L (0.01-0.04) ng/ml Discharge Plan Discharge Clinical Impression: Elevated blood pressure reading Patient Disposition: Home w/ Parent or Adult Condition: Stable Additional Instructions: As we discussed, your elevated blood pressure could be from any number of things. I suspect that you are coming down with a mild viral illness. Your blood work is very reassuring. No signs of elevated inflammatory markers, white count, electrolyte abnormalities or other strange findings. Your creatinine appears to be stable for you as well. Mild viral infection would certainly explain the ear pressure and sinus congestion. Since there are no signs of a bacterial infection, I would strongly discourage antibiotics or any treatment for your sinuses. It is okay to use [id number] nasal steroid spray if you wish. Typically these will resolve in about 3 weeks but it is common this time of year to get multiple viral infections back to back and symptoms to last longer. Continue checking her blood pressure 3 times daily to write this down so that you have more data to share with your primary care and Nephrology teams. I would like for you to relay the results back to them in about week and set up an appointment if they desire to discuss this further. Any stroke-like symptoms, persistent fever or significant worsening would warrant an emergency room visit. Activity Level: No Restrictions Discharge Diet: Regular Prescriptions: No Action multivitamin [Multiple Vitamins] Tablet 1 tab PO QAM calcium-vitamin D3-vitamin K [Viactiv] 650 mg-12.5 mcg-40 mcg tablet,chewable PO PRN lisinopril 2.5 mg tablet 2.5 mg PO QAM Rx Instructions: 2.5 mg in AM and 5mg at PM lisinopril 5 mg tablet 5 mg PO QPM Follow Up/Referrals: Ivana Bains MD [Primary Care Provider] - Stand Alone Forms: [facility] Info Instructions
[2024-05-30 11:50] LABS: PCR FLU A Negative PCR FLU A (Negative); PCR FLU B Negative PCR FLU B (Negative); PCR RSV Negative PCR RSV (Negative); SARS PCR* Negative SARS-CoV-2 (Negative)
== END 2024-05-29 23:37 | disposition home or self-care (01) ==
LOC: ED 23:34
PROVIDERS: Emergency Provider Family Medicine; PCP Internal Medicine
DX: I10 Essential (primary) hypertension (principal)
CPT/HCPCS: 36415; 80048; 84484; 85025; 86140; 87631; 99283; 99284

== ENCOUNTER 2024-06-24 11:37 | Outpatient (CLI) | payer MEDICARE, SELFPAY ==
--- NOTE | 2024-06-24 13:08 | P.ANES_ITS ---
Anesthesia Charges Start Date/Time Anesthesia Start Date: 06/24/24 Anesthesia Start Time: 12:32 Stop Date/Time Anesthesia Stop Date: 06/24/24 Anesthesia Stop Time: 12:59 Summary Extremes of Age - Over 70 or under 1: MDA Coding CPT Codes CPT Codes: ANES LWR INTST NDSC NOS - 07875 ([id number]) QK - DIRECTOR AGENCY & STRATEGIC PARTNERSHIPS 2-4 CNCRNT ANES PROC, QX - STITCH BONDING MACHINE DRAWER IN SVC W/ MD MED DIRECTION, P2 - PATIENT W/MILD SYST DISEASE Additional Codes: Summary - Extremes of Age - Over 70 or under 1: MDA ([id number])
--- NOTE | 2024-06-24 13:08 | W.ANESCHARGE ---
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
--- NOTE | 2024-07-15 08:28 | W.ANESCHARGE ---
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
== END 2024-06-24 11:38 | disposition home or self-care (01) ==
LOC: OP CLINIC 11:38
PROVIDERS: PCP Internal Medicine; Visit Provider Surgery
DX: Z12.11 Encounter for screening for malignant neoplasm of colon (principal); Z86.0100 Personal history of colon polyps, unspecified
CPT/HCPCS: 00811; 00812; 45378; 99100; J2704

== ENCOUNTER 2024-07-28 10:14 | Outpatient (CLI) | payer MEDICARE, SELFPAY | END 2024-07-28 10:15 | disposition home or self-care (01) | LOC: NFLDREF 10:15 | PROVIDERS: PCP Internal Medicine; Visit Provider Internal Medicine | DX: N18.31 Chronic kidney disease, stage 3a (principal) | CPT/HCPCS: 80048 ==

== ENCOUNTER 2025-03-04 11:45 | Outpatient (CLI) | payer MEDICARE, SELFPAY | END 2025-03-04 11:46 | disposition home or self-care (01) | LOC: NFLDREF 03-06 14:07 | PROVIDERS: PCP Internal Medicine; Referring Provider Internal Medicine; Visit Provider Nurse Practitioner Family | DX: R19.7 Diarrhea, unspecified (principal) | CPT/HCPCS: 87493; 87507 ==

== ENCOUNTER 2025-04-21 10:00 | Outpatient (CLI) | payer MEDICARE, SELFPAY | END 2025-04-21 10:01 | disposition home or self-care (01) | LOC: NFLDREF 04-25 02:05 | PROVIDERS: PCP Internal Medicine; Referring Provider Internal Medicine; Visit Provider Nurse Practitioner Family | DX: N18.30 Chronic kidney disease, stage 3 unspecified (principal) | CPT/HCPCS: 80053 ==